=== PATIENT | female | born 1985 | race Caucasian/White ===

== ENCOUNTER 2023-06-29 13:36 | Outpatient (OUT) | payer OTHER, SELFPAY ==
--- NOTE | 2023-06-29 13:58 | XR_ITS ---
The [address] [address] Patient Name: LUL BRITTON MRN: [id number] date: 1985 Sex: F Assigned Patient Location: [facility] Current Patient Location: Accession/Order Number: [id number] Exam Date: 06/29/2023 13:52 Report Date: 06/30/2023 07:02 At the request of: NON-STAFF PHYSICIAN Procedure: XR abdomen 1V EXAMINATION: XR abdomen 1V HISTORY: Kidney Stones N20.0 COMPARISON: XR KUB 10/02/2022 FINDINGS: KIDNEY/URETER - RIGHT: Stable 5 mm stone within inferior pole of kidney. KIDNEY/URETER - LEFT: Stable appearance of several small stones within mid body of kidney. PELVIS: No visible ureteral stones. BOWEL: No abnormal dilation or deviation. BONES: No acute abnormality. OTHER: Negative. No abnormal gaseous collections. XR/XR abdomen 1V IMPRESSION: 1. Stable bilateral nephrolithiasis. Electronically authenticated by: CHELY DALEY Date: 06/30/2023 07:02
== END 2023-06-29 13:37 | disposition home or self-care (01) ==
LOC: RAD 13:39
PROVIDERS: PCP Family Medicine
DX: N20.0 Calculus of kidney (principal)
CPT/HCPCS: 74018

== ENCOUNTER 2023-08-15 14:02 | Outpatient (OUT) | payer OTHER, SELFPAY ==
--- NOTE | 2023-08-15 14:46 | PM.CN ---
Consult Note: HPI Data of Consult Patient: new to practice Consult date: 08/15/23 Requesting Physician: Joanne Cameron MD Primary Care Provider: Kirby Delong MD Consult Narrative Reason for consult: Midback, neck, right shoulder pain Narrative: 38yof who presents for evaluation. Worsening midback, neck, right shoulder pain. Ongoing for 1+ year. Completed physical therapy x6 weeks, with minimal benefit. Continues in provider directed home exercises >3x/week for >6 weeks, with minimal benefit. Tried muscle relaxers, with minimal benefit. XR reviewed, which is significant for cervical and thoracic spondylosis. Denies adverse med side effects. cc:: CC: Joanne Cameron MD Review of Systems ROS Status of ROS 10 or more systems reviewed and unremarkable except as noted in history and below Exam Narrative Exam Narrative: Psych-alert and oriented x 3.? Attentive and appropriate, constitutionally normal, displays normal mood and affect per situation.? There are no obvious deficits in memory, reasoning, or intellect.? Skin-no obvious rashes, bruising, or erythema noted to the patient's area of pain. Extremities-upper extremities are warm with minimal edema and palpable pulses. Cervical- tenderness to palpation noted in the cervical spine and paraspinal musculature.? Pain is elicited with extension, and lateral rotation of the cervical spine.? Range of motion is slightly diminished due to pain. Facet loading maneuvers are positive bilaterally.? Thoracic- tenderness to palpation noted in thoracic spine and paraspinal musculature. Pain elicited with flexion, lateral rotation. Coordination remains intact.? Gait remains non-antalgic. Assessment and Plan Assessment and Plan (1) Thoracic spondylosis: (2) Cervical spondylosis: (3) Right shoulder pain: Plan 38yof who presents for evaluation. Failed conservative measures, as noted above. Imaging reviewed, as noted. Given symptoms and imaging, prudent to attempt diagnostic bilateral T10-11, T11-12 medial branch blocks under fluoroscopic guidance with intention of proceeding to radiofrequency ablation. She is in agreement. Will also obtain right shoulder XR to assess for shoulder pathology. Medications reviewed. Will trial lodine 400mg bid prn. She expressed understanding. Follow up after procedure and imaging are complete.
== END 2023-08-15 14:03 | disposition home or self-care (01) ==
LOC: PM 14:03
PROVIDERS: PCP Family Medicine; Visit Provider Anesthesiology
DX: M47.812 Spondylosis without myelopathy or radiculopathy, cervical region (principal); M47.814 Spondylosis without myelopathy or radiculopathy, thoracic region; M25.511 Pain in right shoulder
CPT/HCPCS: 73030; G0463

== ENCOUNTER 2023-08-15 14:57 | Outpatient (OUT) | payer OTHER, SELFPAY ==
--- NOTE | 2023-08-15 15:08 | XR_ITS ---
The [address] [address] Patient Name: LUL BRITTON MRN: [id number] date: 1985 Sex: F Assigned Patient Location: [facility] Current Patient Location: Accession/Order Number: [id number] Exam Date: 08/15/2023 15:10 Report Date: 08/16/2023 08:17 At the request of: HARRIETT GARCIA Procedure: XR shoulder RT min 2V EXAM: Right shoulder HISTORY: . Right Shoulder Pain . COMPARISON: None. TECHNIQUE: 3 views FINDINGS: No fracture or dislocation of the right shoulder is noted. Glenohumeral joint is unremarkable. Surrounding soft tissues are unremarkable. XR/XR shoulder RT min 2V IMPRESSION: Negative right shoulder. Electronically authenticated by: RIC JOLLEY Date: 08/16/2023 08:17
== END 2023-08-15 14:58 | disposition home or self-care (01) ==
LOC: LAB 15:02 → RAD 15:06
PROVIDERS: PCP Family Medicine; Visit Provider Anesthesiology
DX: M25.511 Pain in right shoulder (principal)
CPT/HCPCS: 73030

== ENCOUNTER 2023-09-05 07:26 | Day surgery (SDC) | payer OTHER, SELFPAY ==
[2023-09-05 07:50] VITALS: BP 131/85; PULSE 87; RESP 14; TEMP 36.9; O2SAT 97
[2023-09-05 08:05] LABS: HCG Qualitative NEGATIVE (NEGATIVE)
[2023-09-05 08:33] VITALS: BP 101/59; PULSE 76; RESP 18; O2SAT 96
[2023-09-05 08:36] VITALS: BP 101/62; PULSE 78; RESP 18; O2SAT 99
[2023-09-05] MEDS: BUPIVACAINE HCL 0.25% PF 25 MG/10 ML VIAL 8 ML INJ (08:37)
--- NOTE | 2023-09-05 08:37 | W.PM.PROCNOT ---
Date of procedure: 09/05/23 Pre-op diagnosis: Thoracic spondylosis Post-op diagnosis: same as pre-op Procedure: Procedure: Bilateral T10-11, T11-12 medial branch block Medications: Bupivacaine 0.25% 6cc The patient was seen and examined in the preoperative holding area.? An informed consent was obtained and placed on the chart.? The patient was brought to the medical procedure unit and placed in the prone position.? A timeout was completed verifying correct patient, procedure site, positioning, plan, and special equipment.? Using aseptic technique, the needle was placed at left T10. Under direct fluoroscopic visualization a Quincke-tipped spinal needle was advanced to the junction of the superior articulating process with the transverse process at the designated medial branch segment.? Preceded by negative aspiration, the above-mentioned injectate was placed in 1 mL aliquots.? The procedure was repeated at left T11, 12.? The needle was removed and insertion site was covered. The same procedure, at the same levels, was completed on the right side. The patient was taken to the postprocedural recovery area and monitored for an appropriate length of time before found suitable for discharge in the company of a responsible adult. Anesthesia: Local Surgeon: Joanne Cameron Pathology: none sent Condition: stable Disposition: no change
== END 2023-09-05 08:42 | disposition home or self-care (01) ==
PROVIDERS: PCP Family Medicine; Visit Provider Anesthesiology
DX: M47.814 Spondylosis without myelopathy or radiculopathy, thoracic region (principal)
CPT/HCPCS: 36415; 64490; 64491; 84703

== ENCOUNTER 2023-09-14 15:03 | Outpatient (OUT) | payer OTHER, SELFPAY ==
--- NOTE | 2023-09-14 15:29 | P.CN_ITS ---
Consult Note: HPI Data of Consult Patient: known to practice within the last 3 years Consult date: 08/15/23 Requesting Physician: Charmaine Yates NP Primary Care Provider: Kirby Delong MD Consult Narrative Reason for consult: Midback, neck, right shoulder pain Narrative: 38yof who presents for evaluation. Worsening midback, neck, right shoulder pain. Ongoing for 1+ year. Completed physical therapy x6 weeks, with minimal benefit. Continues in provider directed home exercises >3x/week for >6 weeks, with minimal benefit. Tried muscle relaxers, with minimal benefit. XR reviewed, which is significant for cervical and thoracic spondylosis. Denies adverse med side effects. Patient reports 90% immediate relief and functional improvement for a few hours, and ongoing relief, after bilateral T10-11 T11-12 facet medial branch block #1. Today pain is 1/10 in right upper thoracic and shoulder, ache, sore, varies-tight . cc:: CC: Charmaine Yates NP Review of Systems 2 ROS0 Status of ROS 10 or more systems reviewed and unremark able except as noted in history and below Musculoskeletal Reports: back pain and extremity pain Meds Home Medications and Allergies Home Medications Medication Instructions Recorded Confirmed Type dextroamphetamine-amphetamine 20 20 mg PO DAILY 08/15/23 09/05/23 History mg tablet (Adderall) etodolac 400 mg tablet (Lodine) 400 mg PO BID 08/15/23 09/05/23 History paroxetine HCl 20 mg tablet (Paxil) 20 mg PO DAILY 08/15/23 09/05/23 History topiramate 25 mg tablet (Topamax) 25 mg PO BID 08/15/23 09/05/23 History Allergies Allergy/AdvReac Type Severity Reaction Status Date / Time Penicillins Allergy Verified 09/05/23 07:48 Exam Narrative Exam Narrative: Psych-alert and oriented x 3.? Attentive and appropriate, constitutionally normal, displays normal mood and affect per situation.? There are no obvious deficits in memory, reasoning, or intellect.? Skin-no obvious rashes, bruising, or erythema noted to the patient's area of pain. Extremities-upper extremities are warm with minimal edema and palpable pulses. Cervical- tenderness to palpation noted in the cervical paraspinal musculature.? Pain is elicited with extension, and lateral rotation of the cervical spine.? Range of motion is slightly diminished due to pain. Facet loading maneuvers are positive bilaterally.? Thoracic- tenderness to palpation noted in paraspinal musculature. Pain elicited with flexion, lateral rotation. Coordination remains intact.? Gait remains non-antalgic. Constitutional Documenting provider has reviewed patient's vital signs: yes Common normals: no apparent distress, oriented x3, healthy appearing, alert and well nourished General appearance: cooperative HENMT Common normals: normocephalic, hearing grossly normal bilaterally and moist oral mucous membranes Head and scalp: normocephalic Eye Common normals: PERRL Pupil: PERRL Neck & C-Spine Common normals: full ROM General: normal visual inspection Other: negative facet loading negative radiculopathy Chest Common normals: inspection of chest normal Respiratory Common normals: normal respiratory effort, no retractions and no use of accessory muscles Back & Pelvis Other: negative facet loading Back image (female): 2 1. myofascial pain 2. myofascial pain Extremity Common normals: normal to inspection and full ROM Neuro Common normals: oriented x3, CN's II-XII intact bilaterally, moves all extremities, no focal motor deficits, no sensory deficits noted, deep tendon reflexes 2+ bilaterally and gait normal Sensorium/orientation: alert Motor exam: strength 5/5 throughout and no movement abnormalities noted Psych Common normals: mental status grossly normal, thought process normal, cooperative, affect normal, speech normal and activity/motor behavior normal Speech: normal speech Thought process: normal thought process Results Additional Findings Additional findings: I have checked an [place] report on this patient today and there are no aberrancies noted in the prescribing history.?? A drug screen was completed and reviewed within the last year, and if there has not been a drug screen completed we ordered one today to monitor higher risk, state monitored pain medication use. As part of providing excellent, safe, comprehensive care, the following was completed at our patient's visit: 1. A medication reconciliation and review to ensure accurate knowledge of current/active medications, including asking our patients to inform us about any [id number] medications or herbal remedies/nutritional supplements/alternative remedies. 2. A review to specifically ensure our patients have had annual screening for: elevated body mass index (BMI), tobacco use, screening for depression, and screening for unhealthy alcohol use. When screening is concerning, patients are provided with education and the specific recommendation to discuss the concerning health issue and treatment options with their primary care provider. Assessment and Plan Assessment and Plan (1) Thoracic spondylosis: (2) Cervical spondylosis: (3) Right shoulder pain: (4) Myofascial pain: Plan defer on bilateral T10-11 T11-12 facet medial branch block #2 as patient has no pain on exam and reports 1/10 pain today start baclofen 10mg daily as needed continue lodine 400mg BID PRN, has not been utilizing continue TENS unit, has found benefit in the past, not currently utilizing f/u 3 months, sooner if needed
== END 2023-09-14 15:04 | disposition home or self-care (01) ==
LOC: PM 15:03
PROVIDERS: PCP Family Medicine; Visit Provider Nurse Practitioner
DX: M47.814 Spondylosis without myelopathy or radiculopathy, thoracic region (principal); M47.812 Spondylosis without myelopathy or radiculopathy, cervical region; M25.511 Pain in right shoulder; M79.18 Myalgia, other site
CPT/HCPCS: G0463

== ENCOUNTER 2023-09-22 17:02 | Outpatient (OUT) | payer OTHER, SELFPAY ==
--- OUTSIDE RECORDS SUMMARY | 2023-09-22 17:10 | XMS_ITS | CCD ---
Author Name Unknown Address [address] [place] [address] Organization [facility] Care Team Providers Care Award Machine Operator Name Role Phone WINSOME, MINGO S Unavailable Unavailable BETANCUR, MAYE P Unavailable Unavailable WINSOME, MINGO S Unavailable Unavailable BETANCUR, MAYE P Unavailable Unavailable Jennyfer Ruiz Unavailable Jessenia Ortiz Unavailable KIRBY ALBERTO Primary Care Physician CHAN ., DR CASTILLO Admitting Unavailable CHAN ., DR CASTILLO Consulting Unavailable CHAN ., DR CASTILLO Attending Unavailable NADERER, DR KIRBY Ayala Primary Care Unavailable NADERER, DR KIRBY Ayala Consulting Unavailable NADERER, DR KIRBY Ayala Attending Unavailable NADERER, DR KIRBY Ayala Admitting Unavailable NADERER, DR KIRBY Ayala Primary Care Unavailable NADERER, DR KIRBY Ayala Attending Unavailable NADERER, DR KIRBY Ayala Admitting Unavailable WEST, DR RIC Diaz Consulting Unavailable NADERER, DR KIRBY Ayala Primary Care Unavailable NADERER, DR KIRBY Ayala Consulting Unavailable NADERER, DR KIRBY Ayala Primary Care Unavailable CHAN ., DR CASTILLO Attending Unavailable CHAN ., DR CASTILLO Admitting Unavailable CHAN ., DR CASTILLO Consulting Unavailable WEST, DR RIC Diaz Consulting Unavailable CHAN ., DR CASTILLO Attending Unavailable CHAN ., DR CASTILLO Admitting Unavailable CHAN ., DR CASTILLO Consulting Unavailable NADERER, DR KIRBY Ayala Primary Care Unavailable WEST, DR RIC Diaz Consulting Unavailable WEST, DR RIC Diaz Consulting Unavailable NADERER, DR KIRBY Ayala Primary Care Unavailable NADERER, DR KIRBY Ayala Attending Unavailable NADERER, DR KIRBY Ayala Admitting Unavailable NADERER, DR KIRBY Ayala Consulting Unavailable NADERER, DR KIRBY Ayala Primary Care Unavailable NADERER, DR KIRBY Ayala Consulting Unavailable NADERER, DR KIRBY Ayala Attending Unavailable NADERER, DR KIRBY Ayala Admitting Unavailable KARASIK ., DR CHAVEZ Admitting Unavailabl e KARASIK ., DR CHAVEZ Consulting Unavailabl e REQUEST, DR ZHOU LISTED Primary Care Unavaila ble KARASIK ., DR CHAVEZ Attending Unavailabl e WEST, DR RIC Diaz Consulting Unavailable KARASIK ., DR CHAVEZ Attending Unavailabl e KARASIK ., DR CHAVEZ Admitting Unavailabl e KARASIK ., DR CHAVEZ Consulting Unavailabl e MISC, DR GARG Primary Care Unavailable MISC, DR GARG Primary Care Unavailable KARASIK ., DR CHAVEZ Attending Unavailabl e KARASIK ., DR CHAVEZ Admitting Unavailabl e KARASIK ., DR CHAVEZ Consulting Unavailabl e NADERER, DR KIRBY Ayala Primary Care Unavailable NADERER, DR KIRBY Ayala Attending Unavailable NADERER, DR KIRBY Ayala Admitting Unavailable Leana Soler Unavailable KEN Soler Attending Provider Leana Soler Attending Unavailable Leana Soler Admitting Unavailable NO FAMILY, PHYSICIAN Primary Care Unavailable XIMENA SCALES Attending Unavailable Isra CHAN Attending Unavailable KIRBY ALBERTO Referring Unavailable XIMENA SCALES Attending Unavailable XIMENA SCALES Attending Unavailable Nisha JOHNSTON, Joanne Olivares Attending Unavailable Nisha JOHNSTON, Joanne Olivares Attending Unavailable Allergies Allergy Classification Reported Allergen(s) Allergy Type Date of Onset Reaction(s) Facility (7 sources) Penicillin G Benzathine; Translations: [Penicillin G] Drug allergy rash, Eruption of skin (disorder) [facility] (1 source) Penicillin Drug Allergy [facility] Repository Medications Current Medications Medication Drug Class(es) Dates Sig (Normalized) Sig (Original) cetirizine hydrochloride 10 mg oral tablet (1 source) Histamine-1 Receptor Antagonist take 1 tablet by mouth once daily ZyrTEC Allergy 10 MG 1 tablet Orally Once a day Active clarithromycin 500 mg oral tablet (1 source) Macrolide Antimicrobial Start: 2 take 1 tablet by mouth every twelve hours Clarithromycin 500 MG 1 tablet Orally every 12 hrs for 10 day(s) Apr, Active methylPREDNISolone 4 mg oral tablet (1 source) Corticosteroid Start: 2 methylPREDNISolone 4 MG as directed Orally Once a day for 6 days Apr, Active montelukast 10 mg oral tablet (1 source) Leukotriene Receptor Antagonist Start: 3 montelukast 10 mg Tab Refills(s) 0 Start Date: 02/08/23 Status: Ordered PARoxetine hydrochloride 20 mg oral tablet (4 sources) Serotonin Reuptake Inhibitor Start: 3 take 1 mg by mouth once daily Paxil 20 mg Tab mg tab(s), Oral, Daily, Refills(s) 0 Start Date: 10/04/22 Status: Ordered Paxil Active predniSONE 20 mg oral tablet (3 sources) Start: 03-06-2023 predniSONE 20 MG Take 3 tabs daily x 3 days, then take 2 tabs daily x 3 days, then take 1 tab daily x 3 days. Orally Once a day for 9 days Feb, Active Start: 09-01-2022 take 1 tablet by herson th every twelve hours predniSONE 20 MG 1 tablet Orally 2 times a day for 5 day(s) Aug, Not-Taking topiramate 25 mg oral tablet (4 sources) Start: 10-04-2022 take 1 mg by mouth twice daily Topamax 25 mg Tab mg tab(s), Oral, BID, Refills(s) 0 Start Date: 10/04/22 Status: Ordered Topamax Active Tylenol Extra Strength 500 MG (3 sources) take 1 tablet by mouth every six hours as needed Tylenol Extra Strength 500 MG 1 tablet as needed Orally every 6 hrs Active Vitamin D (2 sources) Vitamin D Active Vitamin D3 2000 intl units oral tablet (2 sources) Start: 10-04-2022 Vitamin D3 2000 intl units oral tablet Refills(s) 0 Start Date: 10/04/22 Status: Ordered Completed/Discontinued Medications Medication Drug Class(es) Dates Sig (Normalized) Sig (Original) acetaminophen 250 mg / aspirin 250 mg / caffeine 65 mg oral tablet (3 sources) Platelet Aggregation Inhibitor, Nonsteroidal Anti-inflammatory Drug, Central Nervous System Stimulant, Methylxanthine take 2 tablets by mouth every twenty-four hours Excedrin Migraine 250-250-65 MG 2 tablets Orally Once a day Not-Taking [id number] 200 actuat albuterol 0.09 mg/actuat metered dose inhaler (2 sources) beta2-Adrenergic Agonist Start: 12-14-20 22 take 2 puff(s) by inhalation four times daily as needed Albuterol Sulfate HFA 108 (90 Base) MCG/ACT 2 puffs Inhalation 4 times a day prn 14 Aug, 2022 Not-Taking hydroCHLOROthiazide (2 sources) Thiazide Diuretic hydroCHLOROthi azide Not-Taking hydroCHLOROthiaz hua Active polymyxin b 88776 unt/ml / trimethoprim 1 mg/ml ophthalmic solution (1 source) Dihydrofolate Reductase Inhibitor Antibacterial, Polymyxin-class Antibacterial Start: 02-01-2023 take 1 drop(s) into the eye(s) every three hours Polytrim 45606-3.1 UNIT/ML 1 drop into affected eye Ophthalmic every 3 hours while awake for 7 January, Not-Taking Problems Active Problems Problem Classification Problem Date Documented Da te Episodic/Chronic Abdominal pain (7 sources) Unspecified abdominal pain; Translations: [Pelvic and perineal pain] Onset: 10-30-2022 Episodic Calculus of urinary tract (16 sources) Calculus of kidney; Translations: [Kidney stone] Onset: 07-08-2017 Episodic Gout and other crystal arthropathies (2 sources) Gouty arthritis of left foot; Translations: [Gout, unspecified] Chronic Heart valve disorders (2 sources) Heart murmur 10-04-2022 Episodic Nonspecific chest pain (4 sources) Chest pain, unspecified; Translations: [CHEST PAIN UNSPECIFIED] Onset: 11-17-2022 Episodic Other connective tissue disease (1 source) Pain in right arm; Translations: [PAIN IN RIGHT ARM] Onset: 11-03-2022 Episodic Other connective tissue disease (1 source) Pain in left foot Episodic Other injuries and conditions due to external causes (1 source) History of falling; Translations: [HISTORY OF FALLING] Onset: 11-05-2022 Episodic Other upper respiratory infections (1 source) Acute upper respiratory infection, unspecified Episodic Spondylosis; intervertebral disc disorders; other back problems (2 sources) Spondylosis without myelopathy or radiculopathy, cervical region; Translations: [Spondylosis without myelopathy or radiculopathy, thoracic region] Onset: 11-05-2022 Chronic Spondylosis; intervertebral disc disorders; other back problems (6 sources) Cervicalgia; Translations: [Pain in thoracic spine] Onset: 11-01-2022 Episodic Unclassified (1 source) LOW BACK PAIN, UNSPECIFIED; Translations: [LOW BACK PAIN, UNSPECIFIED] Onset: 11-03-2022 Unclassified (1 source) Pain in left foot; Translations: [Pain in left foot] Onset: 03-06-2023 Past or Other Problems Problem Classification Problem Date Documented Date Episodic/Chronic Immunizations and screening for infectious disease (2 sources) Contact with and (suspected) exposure to other viral communicable diseases; Translations: [Encounter for screening for human papillomavirus (HPV)] Onset: 07-22-2021 Resolved: 07-22-2021 Episodic Other female genital disorders (4 sources) Other specified noninflammatory disorders of vagina; Translations: [OTH SPEC NONINFLAMMATORY D/O VAGINA] Onset: 06-02-2022 Episodic Other screening for suspected conditions (not mental disorders or infectious disease) (8 sources) Encounter for screening mammogram for malignant neoplasm of breast; Translations: [Encounter for screening for malignant neoplasm of cervix] Onset: 06-09-2022 Episodic Otitis media and related conditions (1 source) Otitis media, unspecified, left ear Onset: 04-22-2022 Resolved: 04-22-2022 Episodic Residual codes; unclassified (1 source) Family history of malignant neoplasm of breast; Translations: [FAMILY HX MALIG NEOPLASM OF BREAST] Onset: 06-25-2022 Episodic Residual codes; unclassified (1 source) Family history of malignant neoplasm of other genital organs; Translations: [FAM HX MALIG NEOPLSM OT GENIT ORGN] Onset: 06-25-2022 Episodic Unclassified (1 source) Contact with and (suspected) exposure to covid-19 Z20.822 Viral infection (1 source) COVID-19 Onset: 07-22-2021 Resolved: 07-22-2021 Results Test Name Value Interpretation Reference Range Facility RAD - MISCon 07-08-2023 RAD - MISC [id number] 0TIFF Normal [facility] Screenson 07-06-2023 Screens [id number] 0TIFF Normal [facility] Ambulatory Visit Summaryon 1 Ambulatory Visit Summary LUL BRITTON :1985 Visit Date:07/05/2023 Ambulatory Visit Instructions Your Diagnosis Kidney stones Flank pain History of kidney stones Tests Performed Urnls Dip Stick Auto w/o Microscopy POC 45899 US Renal -- Results Pending -- XR Abdomen 1 View -- Results Pending -- Please visit your patient portal for your results or contact your primary care physician. Your Care Team Attending Physician - XIMENA SCALES PA-C Primary Care Physician - KIRBY ALBERTO MD This Is Your Medications List Contact prescribing physician if questions or concerns cholecalciferol (Vitamin D3 2000 intl units oral tablet) montelukast (montelukast 10 mg Tab) paroxetine (Paxil 20 mg Tab) topiramate (Topamax 25 mg Tab) Procedures Performed Appendectomy, Cholecystectomy, Colonoscopy, Hernia, Lithotripsy, Tubal ligation. Discharge Vitals Height 153 cm Height 60 in Weight 98 kg Weight 215.6 lb BMI 41.86 What to do next Scheduled Follow-Up Appointments Tuesday 2:00 PM EDT With: XIMENA SCALES PA-C Where: [facility] Reminderson 07-05-2023 Reminders - From: Ailin Dubose To: PADMINI Scales; Sent: 07/05/2023 15:50:31 EDT Show up: 06/19/2024 15:50:00 EDT Subject: KUB and QING prior to appt Reminder Message Please Remember to:_have pt complete KUB and QING prior to appt. Prefers [facility]. [facility] Urology Office/Clinic Noteon 07-05-2023 Urology Office/Clinic Note HPI Staff PRW pt 5m KUB & Metabolic Work up to determine if thiazide is needed. KUB 06/29/23 Dysuria: no Incomplete bladder emptying: no Hematuria: UA shows trace Frequency:occasionally sooner, 2-3 hours Urgency: moderate urge, 30-60min delay Nocturia: no Stream: good stream Post void dripping: occasionally Wearing pads/ Depends: no Urge incontinence: rarely Stress incontinence: yes Incontinence without Sensory Awareness: no Abdominal pain: no Flank pain: Pt. states having Rt. flank pain History of Present Illness staff HPI reviewed and agree. Review of Systems PHQ Score Initial Depression Screen Score: 0 no fever, chills, malaise, myalgia. no rash/lesions. no chest pain, palpitations, or SOB. no abdominal pain, nausea, vomiting. no unilateral calf swelling, redness, pain Physical Exam Vitals & Measurements HT: 60 in HT: 153 cm WT: 98 kg WT: 215.6 lb BMI: 41.86 General: nontoxic, NAD Mouth: moist mucosa Lungs: normal respiratory effort Cardio: regular rate, good distal perfusion Abdomen: nondistended, no suprapubic distention or tenderness, no CVA tenderness Neurologic: Grossly normal Skin: No rashes or suspicious lesions Assessment/Plan Dr. Chan pt BBSQ 9. considers 'good control'. not bothersome enough to warrant tx. 1. Kidney stones (N20.0: Calculus of kidney) Hx of kidney stones since age 20. Previously treated in [place]. S/P Lithotripsy in 2017. Hx of 8 lithotripsy surgeries. Had major infection in the past due to stones. Has had pain from stones. [1] KUB 08/27/22 [facility] - bilateral stones. No visible ureteral calcifications. Review by PRW: 6mm stone on R > L. A couple tiny stones on the left. XR IVP 10/12/22 [facility] - no ureteral stones or evidence of obstruction. KUB 06/29/23 [facility] - stable 5mm RIP stone and stable appearance of several small L mid body stones. Not taking HCTZ. Was on it many years ago but then stopped. Was off of it when completed metabolic work-up in November 2022. Met w/u 12/06/22 - slight elevation of urine Ca, 24hr sodium, 24hr phosphorus. Significant elevation of 24hr Ca - 479 (nl 100-300). Volume 2050ml. We talked about resuming the HCTZ vs increasing fluid intake. Pt reports she has not been able to increase fluid intake and does not think she will be able to do so. Discussed risks/benefits of resuming HCTZ vs not. Pt prefers to stay off of it and just continue stone monitoring w imaging. -KUB and QING in 1 year 2. Flank pain (R10.9: Unspecified abdominal pain) Continues having R flank pain on and off. Mild. No recent changes. Chronic. UA looks good. May be musculoskeletal. Follow up with KUB and QING in 1 year or sooner if needed. Pt understands and agrees with plan. Follow-up With When Contact Information YORDY WILLSON, XIMENA Lam, URL [address] [place] [address] [phone] Additional Instructions: 1 yr w/ KUB and QING Patient Education Dietary Guidelines to Help Prevent Kidney Stones Documentation recorded by the roseann Dubose accurately reflects the services(s) I performed and decisions made by me. Authenticated by Ximena Scales PA-C on 07/05/2023 16:45:18. I, Ailin Dubose, personally scribed for Ximena Scales PA-C on 07/05/2023 15:47:56. . Problem List/Past Medical History Ongoing Flank pain Heart murmur History of kidney stones Kidney stones Historical No qualifying data Procedure/Surgical History Appendectomy, Cholecystectomy, Colonoscopy, Hernia, Lithotripsy, Tubal ligation. Medications montelukast 10 mg Tab Paxil 20 mg Tab, Oral, Daily Topamax 25 mg Tab, Oral, BID Vitamin D3 2000 intl units oral tablet Allergies penicillin G benzathine (Eruption) Social History Tobacco Never (less than 100 in lifetime) Tobacco Use:. Current vaping or e-cigarette use Smokeless Tobacco Use:. Household tobacco concerns: No., 02/08/2023 Family History Family history is negative Immunizations Vaccine Date Status diphtheria/pertussis, acel/tetanus adult 05/11/2010 Recorded varicella virus vaccine 01/10/2007 Recorded varicella virus vaccine 12/07/2006 Recorded hepatitis B pediatric vaccine 04/25/2006 Recorded hepatitis B pediatric vaccine 12/20/2005 Recorded hepatitis B pediatric vaccine 11/15/2005 Recorded measles/mumps/rubella virus vaccine 03/10/1999 Recorded DTaP, unspecified formulation 03/10/1999 Recorded Lab Results Ambulatory Point of Care Results Bilirubin Urine Dipstick: Negative (07/05/23 15:24:00) Blood Urine Dipstick: Trace-intact (07/05/23 15:24:00) Glucose Urine Dipstick: Negative (07/05/23 15:24:00) Ketones Urine Dipstick: Negative (07/05/23 15:24:00) Leukocytes Urine Dipstick: Trace (07/05/23 15:24:00) Nitrite Urine Dipstick: Negative (07/05/23 15:24:00) Protein Urine Dipstick: Negative (07/05/23 15:24:00) Specific Duff Urine Dipstick: <=1.005 (07/05/23 15:24:00) Urine Appearance Urine Dipst (more content not included)... Normal [facility] Comment on above: Result Comment: Elec tronically Signed By: XIMENA SCALES PA-C\.br\Date and Time Signed: 07/05/23 16:45 EDT\.br\Electronically Co-Signed By: Ailin Dubose\.br\Date and Time Co-Signed: 07/05/23 15:48 EDT RAD - [facility] 06-30-2023 [facility] [id number] 0TIFF [facility] Patient Educationon 06-13-20 Patient Education Nephrology Dietary Guidelines to Help Prevent Kidney Stones Kidney stones are deposits of minerals and salts that form inside your kidneys. Your risk of developing kidney stones may be greater depending on your diet, your lifestyle, the medicines you take, and whether you have certain medical conditions. Most people can lower their chances of developing kidney stones by following the instructions below. Your dietitian may give you more specific instructions depending on your overall health and the type of kidney stones you tend to develop. What are tips for following this plan? Reading food labels ? Choose foods with no salt added or low-salt labels. Limit your salt (sodium) intake to less than 1,500 mg a day. ? Choose foods with calcium for each meal and snack. Try to eat about 300 mg of calcium at each meal. Foods that contain 200?500 mg of calcium a serving include: ? 8 oz (237 mL) of milk, xmtlugx-iqxfhfhlazhh-a airy milk, and calcium-fortifiedfruit juice. Calcium-fortified means that calcium has been added to these drinks. ? 8 oz (237 mL) of kefir, yogurt, and soy yogurt. ? 4 oz (114 g) of tofu. ? 1 oz (28 g) of cheese. ? 1 cup (150 g) of dried figs. ? 1 cup (91 g) of cooked broccoli. ? One 3 oz (85 g) can of sardines or mackerel. Most people need 1,000?1,500 mg of calcium a day. Talk to your dietitian about how much calcium is recommended for you. Shopping ? Buy plenty of fresh fruits and vegetables. Most people do not need to avoid fruits and vegetables, even if these foods contain nutrients that may contribute to kidney stones. ? When shopping for convenience foods, choose: ? Whole pieces of fruit. ? Pre-made salads with dressing on the side. ? Low-fat fruit and yogurt smoothies. ? Avoid buying frozen meals or prepared deli foods. These can be high in sodium. ? Look for foods with live cultures, such as yogurt and kefir. ? Choose high-fiber grains, such as whole-wheat breads, oat bran, and wheat cereals. Cooking ? Do not add salt to food when cooking. Place a salt shaker on the table and allow each person to add his or her own salt to taste. ? Use vegetable protein, such as beans, textured vegetable protein (TVP), or tofu, instead of meat in pasta, casseroles, and soups. Meal planning ? Eat less salt, if told by your dietitian. To do this: ? Avoid eating processed or pre-made food. ? Avoid eating fast food. ? Eat less animal protein, including cheese, meat, poultry, or fish, if told by your dietitian. To do this: ? Limit the number of times you have meat, poultry, fish, or cheese each week. Eat a diet free of meat at least 2 days a week. ? Eat only one serving each day of meat, poultry, fish, or seafood. ? When you prepare animal protein, cut pieces into small portion sizes. For most meat and fish, one serving is about the size of the palm of your hand. ? Eat at least five servings of fresh fruits and vegetables each day. To do this: ? Keep fruits and vegetables on hand for snacks. ? Eat one piece of fruit or a handful of berries with breakfast. ? Have a salad and fruit at lunch. ? Have two kinds of vegetables at dinner. ? Limit foods that are high in a substance called oxalate. These include: ? Spinach (cooked), rhubarb, beets, sweet potatoes, and Guatemalan chard. ? Peanuts. ? Potato chips, guinean fries, and baked potatoes with skin on. ? Nuts and nut products. ? Chocolate. ? If you regularly take a diuretic medicine, make sure to eat at least 1 or 2 servings of fruits or vegetables that are high in potassium each day. These include: ? Avocado. ? Banana. ? [place], prune, carrot, or tomato juice. ? Baked potato. ? Cabbage. ? Beans and split peas. Lifestyle ? Drink enough fluid to keep your urine pale yellow. This is the most important thing you can do. Spread your fluid intake throughout the day. ? If you drink alcohol: ? Limit how much you use to: ? 0?1 drink a day for women who are not . ? 0?2 drinks a day for men. ? Be aware of how much alcohol is in your drink. In the [place] one drink equals one 12 oz bottle of beer (355 mL), one 5 oz glass of wine (148 mL), or one 1? oz glass of hard liquor (44 mL). ? Lose weight if told by your health care provider. Work with your dietitian to find an eating plan and weight loss strategies that work best for you. General information ? Talk to your health care provider and dietitian about taking daily supplements. You may be told the following depending on your health and the cause of your kidney stones: ? Not to take supplements with vitamin C. ? To take a calcium supplement. ? To take a daily probiotic supplement. ? To take other supplements such as magnesium, fish oil, or vitamin B6. ? Take aoav-enu-tshupgp and prescription medicines only as told by your health care provider. These include supplements. What foods should I limit? Limit your in (more content not included)... Normal [facility] XR foot LT min 3V*on 023 XR foot LT min 3V* [facility] Main [place] [id number] XRay Report Signed Patient: Lul Britton MR#: [id number] 6 : 1985 Acct:[id number] Age/Sex: 37 / F ADM Date: 03/06/23 Loc: XDUCLY Room: Type: [facility] Attending Dr: Leana Soler APRN Copies to: Leana Soler APRN Ordering Provider: Leana Soler APRN Date of Service: 03/06/23 XR/XR foot LT min 3V*: M79.672 LEFT FOOT - 3 views CLINICAL DATA: Dorsal foot pain for the past 5 days. No injury COMPARISON: None AP, lateral and oblique views were obtained. There is no evidence of fracture or dislocation. There are posterior and plantar calcaneal spurs. There is soft tissue swelling over the dorsum of foot. The soft tissues of the ankle are also prominent. XR/XR foot LT min 3V* IMPRESSION: NO ACUTE BONY FINDINGS. Impression dictated by: Selena Thomson M.D.03/06/2023 2:30 PM Dictation Location: [place] [address] Transcribed By: [facility] 03/06/23 1430 Dictated By: Selena Thomson MD 03/06/23 1429 Signed By: 03/06/23 1430 Normal [facility] XR foot LT min 3V* [facility] [email or web address] Other XR foot LT min 3V* [facility] [email or web address] Other XR foot LT min 3V* [address] [facility] [email or web address] Other XR foot LT min 3V* [place] [address] [facility] [email or web address] Other XR foot LT min 3V* [facility] [email or web address] Other XR foot LT min 3V* Signed [facility] [email or web address] Other XR foot LT min 3V* Patient: Lul Britton MR#: [id number] [email or web address] [email or web address] Other XR foot LT min 3V* 6 [employer] Other XR foot LT min 3V* : 1985 Acct:[id number] [employer] Other XR foot LT min 3V* Age/Sex: 37 / F ADM Date: 03/06/23 [employer] Other XR foot LT min 3V* Loc: XDUCLY [facility] [employer] Other XR foot LT min 3V* Attending Dr: Leana Soler SOCK LINER [employer] Other XR foot LT min 3V* Copies to: Leana Soler [facility] [employer] Other XR foot LT min 3V* Ordering Provider: Leana Soler SOCK LINER [employer] Other XR foot LT min 3V* Date of Service: 03/06/23 [employer] Other XR foot LT min 3V* XR/XR foot LT min 3V*: M79.672 [employer] Other XR foot LT min 3V* LEFT FOOT - 3 views [employer] Other XR foot LT min 3V* CLINICAL DATA: Dorsa l foot pain for the past 5 days. No injury [employer] Other XR foot LT min 3V* COMPARISON: None [employer] Other XR foot LT min 3V* AP, lateral and oblique views were obtained. There is no evidence of fracture or dislocation. [employer] Other XR foot LT min 3V* There are posterior and plantar calcaneal spurs. There is soft tissue swelling over the dorsum of [employer] Other XR foot LT min 3V* foot. The soft tissu es of the ankle are also prominent. [employer] Other XR foot LT min 3V* XR/XR foot LT min 3V* [employer] Other XR foot LT min 3V* IMPRESSION: [employer] Other XR foot LT min 3V* NO ACUTE BONY FINDINGS. [employer] Other XR foot LT min 3V* Impression dictated by: Selena Thomson M.D.03/06/2023 2:30 PM [employer] Other XR foot LT min 3V* Dictation Location: [place] [address] [employer] Other XR foot LT min 3V* Transcribed By: NESSA 03/06/23 1430 [employer] Other XR foot LT min 3V* Dictated By: Selena Thomson MD 03/06/23 1429 [employer] Other XR foot LT min 3V* Signed By: [employer] Other XR foot LT min 3V* 03/06/23 1430 [facility] [employer] Other Patient Educationon 02-09-20 Patient Education Urology Kidney Stones Kidney stones are rock-like masses that form inside of the kidneys. Kidneys are organs that make pee (urine). A kidney stone may move into other parts of the urinary tract, including: ? The tubes that connect the kidneys to the bladder (ureters). ? The bladder. ? The tube that carries urine out of the body (urethra). Kidney stones can cause very bad pain and can block the flow of pee. The stone usually leaves your body (passes) through your pee. You may need to have a doctor take out the stone. What are the causes? Kidney stones may be caused by: ? A condition in which certain glands make too much parathyroid hormone (primary hyperparathyroidism). ? A buildup of a type of crystals in the bladder made of a chemical called uric acid. The body makes uric acid when you eat certain foods. ? Narrowing (stricture) of one or both of the ureters. ? A kidney blockage that you were born with. ? Past surgery on the kidney or the ureters, such as gastric bypass surgery. What increases the risk? You are more likely to develop this condition if: ? You have had a kidney stone in the past. ? You have a family history of kidney stones. ? You do not drink enough water. ? You eat a diet that is high in protein, salt (sodium), or sugar. ? You are overweight or very overweight (obese). What are the signs or symptoms? Symptoms of a kidney stone may include: ? Pain in the side of the belly, right below the ribs (flank pain). Pain usually spreads (radiates) to the groin. ? Needing to pee often or right away (urgently). ? Pain when going pee (urinating). ? Blood in your pee (hematuria). ? Feeling like you may vomit (nauseous). ? Vomiting. ? Fever and chills. How is this treated? Treatment depends on the size, location, and makeup of the kidney stones. The stones will often pass out of the body through peeing. You may need to: ? Drink more fluid to help pass the stone. In some cases, you may be given fluids through an IV tube put into one of your veins at the hospital. ? Take medicine for pain. ? Make changes in your diet to help keep kidney stones from coming back. Sometimes, medical procedures are needed to remove a kidney stone. This may involve: ? A procedure to break up kidney stones using a beam of light (laser) or shock waves. ? Surgery to remove the kidney stones. Follow these instructions at home: Medicines ? Take [id number] and prescription medicines only as told by your doctor. ? Ask your doctor if the medicine prescribed to you requires you to avoid driving or using heavy machinery. Eating and drinking ? Drink enough fluid to keep your pee pale yellow. You may be told to drink at least 8?10 glasses of water each day. This will help you pass the stone. ? If told by your doctor, change your diet. This may include: ? Limiting how much salt you eat. ? Eating more fruits and vegetables. ? Limiting how much meat, poultry, fish, and eggs you eat. ? Follow instructions from your doctor about eating or drinking restrictions. General instructions ? Collect pee samples as told by your doctor. You may need to collect a pee sample: ? 24 hours after a stone comes out. ? 8?12 weeks after a stone comes out, and every 6?12 months after that. ? Strain your pee every time you pee (urinate), for as long as told. Use the strainer that your doctor recommends. ? Do not throw out the stone. Keep it so that it can be tested by your doctor. ? Keep all follow-up visits as told by your doctor. This is important. You may need follow-up tests. How is this prevented? To prevent another kidney stone: ? Drink enough fluid to keep your pee pale yellow. This is the best way to prevent kidney stones. ? Eat healthy foods. ? Avoid certain foods as told by your doctor. You may be told to eat less protein. ? Stay at a healthy weight. Where to find more information ? National Kidney Foundation (NKF): www.kidney.org ? [employer] (UCF): www.urologyhealth.org Contact a doctor if: ? You have pain that gets worse or does not get better with medicine. Get help right away if: ? You have a fever or chills. ? You get very bad pain. ? You get new pain in your belly (abdomen). ? You pass out (faint). ? You cannot pee. Summary ? Kidney stones are rock-like masses that form inside of the kidneys. ? Kidney stones can cause very bad pain and can block the flow of pee. ? The stones will often pass out of the body through peeing. ? Drink enough fluid to keep your pee pale yellow. This information is not intended to replace advice given to you by your health care provider. Make sure you discuss any questions you have with your health care provider. Document Revised: 05/10/2022 Document Reviewed: 05/10/2022 [employer] Patient Education ? 2022 [employer] Bhupinder [facility] Urology Office/Clinic Noteon 02-08-2023 Urology Office/Clinic Note Chief Complaint 2m Metabolic Work Up & IVP HPI Staff PRW pt 2m IVP & Metabolic Work Up. DX:Kidney Stones Metabolic Work Up done 3/20/23 Still having Rt flank pain, was told it was her muscle. Has been going to therapy. Denies urinary complaints at this time. UA today does show MODERATE blood - on menses History of Present Illness staff HPI reviewed and agree. Review of Systems PHQ Score Initial Depression Screen Score: 0 no fever, chills, malaise, myalgia. no rash/lesions. no chest pain, palpitations, or SOB. no abdominal pain, nausea, vomiting. no unilateral calf swelling, redness, pain Physical Exam Vitals & Measurements HT: 60 in HT: 153 cm WT: 98 kg WT: 215.6 lb BMI: 41.86 General: nontoxic, NAD Mouth: moist mucosa Lungs: normal respiratory effort Cardio: regular rate, good distal perfusion Abdomen: nondistended, no suprapubic distention or tenderness, no CVA tenderness Neurologic: Grossly normal Skin: No rashes or suspicious lesions Assessment/Plan 1. Kidney stones (N20.0: Calculus of kidney) Hx of kidney stones since age 20. Previously treated in [place]. S/P Lithotripsy in 2017. Hx of 8 lithotripsy surgeries. Had major infection in the past due to stones. Has had pain from stones. KUB done 08/27/22 at [facility] shows bilateral stones. No visible ureteral calcifications. PRW review: 6mm stone on R > L. A couple tiny stones on the left. IVP 10/12/22 shows no ureteral stones or evidence of obstruction. Pt has had a met workup in the past, states she makes too much calcium and was put on HCTZ. Stopped taking it and stopped seeing a physician regularly until recently. PRW recommended repeat metabolic work-up. Recent metabolic workup shows slight elevation of urine Ca, 24hr sodium, 24hr phosphorus. also shows significant elevation of 24hr Ca - 479 (nl 100-300). volume is only 2050ml. recommended pt increase fluid intake another 1-2L with a goal of producing 3-4L urine/24 hrs. suspect most, if not all, of her abnormal levels will correct themselves w proper hydration. 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 for now, will hold off on resuming it. pt will attempt lifestyle changes. repeat metabolic workup in 3-4 mos and f/u after. will repeat KUB at that time. Ordered: E&M of Est. Patient Low 20-29 Min [id number] XR Abdomen 1 View Follow-up No qualifying data available Patient Education Kidney Stones, [id number] Problem List/Past Medical History Ongoing Heart murmur History of kidney stones Kidney stones Historical No qualifying data Procedure/Surgical History Appendectomy, Cholecystectomy, Colonoscopy, Hernia, Lithotripsy, Tubal ligation. Medications montelukast 10 mg Tab Paxil 20 mg Tab, Oral, Daily Topamax 25 mg Tab, Oral, BID Vitamin D3 2000 intl units oral tablet Allergies penicillin G benzathine (Eruption) Social History Tobacco Never (less than 100 in lifetime) Tobacco Use:. Current vaping or e-cigarette use Smokeless Tobacco Use:. Household tobacco concerns: No., 02/08/2023 Family History Family history is negative Immunizations Vaccine Date Status diphtheria/pertussis, acel/tetanus adult 05/11/2010 Recorded varicella virus vaccine 01/10/2007 Recorded varicella virus vaccine 12/07/2006 Recorded hepatitis B pediatric vaccine 04/25/2006 Recorded hepatitis B pediatric vaccine 12/20/2005 Recorded hepatitis B pediatric vaccine 11/15/2005 Recorded measles/mumps/rubella virus vaccine 03/10/1999 Recorded DTaP, unspecified formulation 03/10/1999 Recorded Lab Results Ambulatory Point of Care Results Bilirubin Urine Dipstick: Negative (02/08/23 15:46:00) Blood Urine Dipstick: 2+ Moderate (02/08/23 15:46:00) Glucose Urine Dipstick: Negative (02/08/23 15:46:00) Ketones Urine Dipstick: Negative (02/08/23 15:46:00) Leukocytes Urine Dipstick: Negative (02/08/23 15:46:00) Nitrite Urine Dipstick: Negative (02/08/23 15:46:00) Protein Urine Dipstick: Negative (02/08/23 15:46:00) Specific Duff Urine Dipstick: 1.020 (02/08/23 15:46:00) Urine Appearance Urine Dipstick: Clear (02/08/23 15:46:00) Urine Color Urine Dipstick: Yellow (02/08/23 15:46:00) Urobilinogen Urine Dipstick: Normal 0.2-1 EU/dl (02/08/23 15:46:00) pH Urine Dipstick: 6 (02/08/23 15:46:00) Normal [facility] Comment on above: Result Comment: Elec tronically Signed By: XIMENA SCALES PA-C\Date and Time Signed: 02/08/23 17:26 EDT Lab Reportson 12-14-2022 Lab Reports [id number] CD:127 Normal [facility] CITRATE URINE 24HRon 023 Citric Acid, U, 24hr 410 mg/24 hr Normal 320-1240 [facility] Comment on above: Result Comment: This test was developed and its performance characteristics determined by [employer]. It has not been cleared or approved by the Food and Drug Administration. Performed By: #### O X24HR #### [facility] [address] [place] [address] [address] Neil Krishnamurthy Citric Acid, Urine 200 mg/L Normal Undefined [facility] Comment on above: Performed By: #### O X24HR #### [facility] [address] [place] [address] [address] Neil Krishnamurthy OXALATE 24HR URINEon 023 Oxalates, Urine 7 mg/L Normal Undefined [facility] Comment on above: Performed By: #### O X24HR #### [facility] [address] [address] [address] Neil Krishnamurthy Oxalates, Urine 24hr 14 mg/24 hr Normal 4-31 [facility] Comment on above: Performed By: #### O X24HR #### [facility] [address] [address] [address] Neil Krishnamurthy MAGNESIUM 24HR URINEon 12-07 Magnesium 24hr Urine 116.9 mg/24 hr Normal 12.0-293.0 [facility] Comment on above: Performed By: #### C O2, CL, BUN, CREA, URIC, K, CA, NA #### [facility] [address] [address] [address] Neil Krishnamurthy Magnesium UR 5.7 mg/dL Normal Not Estab. The [facility] Comment on above: Performed By: #### C O2, CL, BUN, CREA, URIC, K, CA, NA #### [facility] [address] [place] [address] Dr. Neil Krishnamurthy PHOSPHORUS 24HR URINEon 11-18 Phosphorus, Urine 56.6 mg/dL Normal Not Estab. The [facility] Comment on above: Performed By: #### O X24HR #### [facility] [address] [place] [address] Dr. Neil Krishnamurthy Phosphorus, Urine 24hr 1160 mg/24 hr Critically high 261-1078 [facility] Comment on above: Performed By: #### O X24HR #### [facility] [address] [place] [address] Dr. Neil Krishnamurthy PTH INTACTon 12-07-2022 PTH, Intact 41 pg/mL Normal 15-65 [facility] Comment on above: Performed By: #### O X24HR #### [facility] [address] [place] [address] Dr. Neil Krishnamurthy URIC ACID 24 HR URINEon 11-18 Uric Acid, Urine 23.4 mg/dL Normal Not Estab. The [facility] Comment on above: Performed By: #### O X24HR #### [facility] [address] [place] [address] Dr. Neil Krishnamurthy Uric Acid, Urine 24hr 479.7 mg/24 hr Normal 173.7-902.1 [facility] Comment on above: Performed By: #### O X24HR #### [facility] [address] [place] [address] Dr. Neil Krishnamurthy BUNon 12-06-2022 Urea nitrogen [Mass/Vol] 12.0 mg/dL Normal 7.0-18.0 [facility] Comment on above: Performed By: #### C O2, CL, BUN, CREA, URIC, K, CA, NA #### [facility] [address] [place] [address] Dr. Neil Krishnamurthy CALCIUMon 12-06-2022 Calcium [Mass/Vol] 8.6 mg/dL Normal 8.5-10.1 [facility] Comment on above: Performed By: #### O X24HR #### [facility] [address] [place] [address] Dr. Neil Krishnamurthy CALCIUM 24 HR URINEon 2022 CALC, 24 HR UR 479.7 mg/24 hr Critically high 100.0-300.0 [facility] Comment on above: Performed By: #### V AGINT #### [facility] [address] [place] [address] Dr. Neil Krishnamurthy UR CALCIUM 23.4 mg/dL Critically high 5.1-21.0 The [facility] Comment on above: Performed By: #### V AGINT #### [facility] [address] [place] [address] Dr. Neil Krishnamurthy UR TOT VOL 2050 ml/24 HR Normal The [facility] Comment on above: Performed By: #### V AGINT #### [facility] [address] [place] [address] Dr. Neil Krishnamurthy Performed By: #### C O2, CL, BUN, CREA, URIC, K, CA, NA #### [facility] [address] [place] [address] Dr. Neil Krishnamurthy CHLORIDEon 12-06-2022 Chloride [Moles/Vol] 106 mmol/L Normal 98-107 [facility] Comment on above: Performed By: #### C O2, CL, BUN, CREA, URIC, K, CA, NA #### [facility] [address] [place] [address] Dr. Neil Krishnamurthy CO2on 12-06-2022 CO2 [Moles/Vol] 25.7 mmol/L Normal 21.0-32.0 [facility] Comment on above: Performed By: #### C O2, CL, BUN, CREA, URIC, K, CA, NA #### [facility] [address] [place] [address] Dr. Neil Krishnamurthy CREA 24 HR URINEon CREA, 24 HR UR 1371.04 mg/24 hr Normal 800.00-1, 800. 00 [facility] Comment on above: Performed By: #### C O2, CL, BUN, CREA, URIC, K, CA, NA #### [facility] [address] [place] [address] Dr. Neil Krishnamurthy URINE CREAT 66.88 mg/dL Normal 20.00-300.00 [facility] Comment on above: Performed By: #### C O2, CL, BUN, CREA, URIC, K, CA, NA #### [facility] [address] [place] [address] Dr. Neil Krishnamurthy CREATININEon 12-06-2022 Creatinine [Mass/Vol] 0.78 mg/dL Normal 0.55-1.02 [facility] Comment on above: Performed By: #### C O2, CL, BUN, CREA, URIC, K, CA, NA #### [facility] [address] [place] [address] Dr. Neil Krishnamurthy EGFR-AF NAMIBIAN >60 Normal >=60 [facility] Comment on above: Performed By: #### C O2, CL, BUN, CREA, URIC, K, CA, NA #### [facility] [address] [place] [address] Dr. Neil Krishnamurthy EGFR-NON AF NAMIBIAN >60 Normal >=60 [facility] Comment on above: Performed By: #### C O2, CL, BUN, CREA, URIC, K, CA, NA #### [facility] [address] [place] [address] Dr. Neil Krishnamurthy NAon 12-06-2022 Sodium [Moles/Vol] 139 mmol/L Normal 136-145 [facility] Comment on above: Performed By: #### C O2, CL, BUN, CREA, URIC, K, CA, NA #### [facility] [address] [place] [address] Dr. Neil Krishnamurthy POTASSIUMon 12-06-2022 Potassium [Moles/Vol] 4.1 mmol/L Normal 3.5-5.1 [facility] Comment on above: Performed By: #### C O2, CL, BUN, CREA, URIC, K, CA, NA #### [facility] [address] [address] [address] Neil Krishnamurthy SODIUM 24 HR URINEon 023 NA, 24 HR UR 211 mmol/24 hr Normal 40-220 [facility] Comment on above: Performed By: #### C O2, CL, BUN, CREA, URIC, K, CA, NA #### [facility] [address] [address] [address] Neil Krishnamurthy Sodium (U) [Moles/Vol] 103 mmol/L Critically high 30-90 [facility] Comment on above: Performed By: #### C O2, CL, BUN, CREA, URIC, K, CA, NA #### [facility] [address] [place] [address] Dr. Neil Krishnamurthy URIC ACID SERUMon 12-06-2022 Urate [Mass/Vol] 5.0 mg/dL Normal 2.6-6.0 [facility] Comment on above: Performed By: #### C O2, CL, BUN, CREA, URIC, K, CA, NA #### [facility] [address] [place] [address] Dr. Neil Krishnamurthy ECHOCARDIO M/2D COMPLETEon 0 11-17-2022 ECHOCARDIO M/2D COMPLETE Patient: LUL BRITTON Exam Date: 11/17/2022 : 1985 Gender:F Ordering : DR KIRBY ALBERTO . Admission #: [id number] Family : Order #: [id number] CLICK HERE TO VIEW EXAM ECHOCARDIOGRAM REPORT PROCEDURE: CARDIO PULMONARY ECHOCARDIO M/2D COMP INDICATIONS: Chest pain COMPARISON: None. DESCRIPTION: COMPLETE ECHOCARDIOGRAM Real-time transthoracic echocardiography with 2D, M-mode, spectral and color flow Doppler performed. QUALITY: Technical quality was good. LEFT VENTRICLE: Normal chamber size. Normal left ventricular wall thickness. Global left ventricular systolic function is normal. LV EF: Visual estimation of left ventricular ejection fraction is 60-65% DIASTOLIC: Normal diastolic function. ATRIAL SEPTUM: LEFT ATRIUM: Normal chamber size. RIGHT ATRIUM: Normal chamber size. RIGHT VENTRICLE: Normal chamber size. Normal right ventricular systolic function. TRICUSPID VALVE: Normal mobility and thickness. No stenosis with trivial regurgitation. No evidence of pulmonary hypertension. RVSP 22 mmHg MITRAL VALVE: Normal mobility and thickness. No mitral valve prolapse. No evidence of mitral valve stenosis. There is no mitral annular calcification. No mitral regurgitation. AORTIC VALVE: Normal trileaflet appearance. No visible sclerosis. Normal leaflet mobility. No evidence of aortic valve stenosis. No aortic regurgitation. AORTIC ROOT: Normal diameter and appearance. PULMONIC VALVE: Normal thickness and mobility. No stenosis. No regurgitation. PERICARDIUM: No evidence of pericardial effusion. IVC: Collapses with inspirations. Normal size PLEURA: CONCLUSION: 1. Normal ventricular size and systolic function. LVEF is 60-65%. 2. Normal diastolic function. 3. No significant valvular dysfunction. 4. Normal right-sided pressures. 5. No pericardial effusion. Adult Echocardiography Procedure Report Left Ventricle LVEDD (3.7 - 5.6 cm): 4.40 cm LVESD (2.2 - 4.0 cm): 2.91 cm LVIVS thickness (0.6 - 1.2 cm): 6.65 mm LVPW thickness (0.5 - 1.0 cm): 6.46 mm LVOT Max Gradient: 4 mm[Hg] Peak Velocity (LVOT): 102.00 cm/s LVOT Diameter 2.00 cm Left Ventricular Ejection Fraction: 60-65 % Left Atrium Mitral Valve MV E to A Ratio: 1.30 Mitral Valve A-Wave Peak Velocity: 75.00 cm/s Mitral Valve E-Wave Peak Velocity: 96.70 cm/s Right Ventricle Aorta AO Root Diam: 3.00 cm Aortic Valve AoV Area (Peak Cedric): 2.48 cm2 Peak Velocity(Antegrade Flow): 129.00 cm/s Peak Gradient(Antegrade Flow): 7 mm[Hg] Tricuspid Valve Peak Velocity (Regurgitant Flow): 216.00 cm/s Peak Velocity: 64.70 cm/s Pulmonic Valve Peak Velocity: 129.00 cm/s, 128.00 cm/s Peak Gradient: 7 mm[Hg] Right Atrium Dictated by: Jon Onofre M.D. on 11/18/2022 at 09:48 Approved by: Jon Onofre M.D. on 11/18/2022 at 09:50 Normal [facility] US PELVIS AND TRANSVAGon US PELVIS AND TRANSVAG EXAMINATION: US PELVIS AND TRANSVAG HISTORY: Pelvic and perineal pain COMPARISON: No relevant comparison available. FINDINGS: Transabdominal and transvaginal images The uterus is normal in size, contour and myometrial echotexture measuring 10 x 4.2 x 5.7 cm. No focal myometrial mass. The endometrium measures 2.9 mm, normal. The right ovary is normal in size, contour and echotexture measuring 2.6 x 2.4 x 2.1 cm. Normal color flow. Normal subcentimeter follicles. The left ovary is normal in size, contour and echotexture measuring 2.1 x 1.8 x 3.0 cm. Normal color flow. Normal subcentimeter follicles No free fluid IMPRESSION: Normal exam Electronically authenticated by: RIC QUEZADA Date: 2022-11-01 07:20 Normal [facility] XR RIBS RT PA Karl XR RIBS RT PA CH EXAMINATION: XR RIBS RT PA CH HISTORY: pain COMPARISON: 10/18/2021 FINDINGS: LUNGS: No significant pulmonary parenchymal abnormalities. PLEURA: No pneumothorax, effusion, or pleural thickening. MEDIASTINUM: No visible mass or adenopathy. CARDIAC: No cardiomegaly or cardiac silhouette abnormality. RIBS: No acute rib fracture OTHER: Degenerative spondylosis of the spine. IMPRESSION: Clear lungs No acute rib fracture Electronically authenticated by: RIC QUEZADA Date: 2022-11-01 07:12 Normal [facility] XR TSPINE MIN 4 VIEWSon 10-20 XR TSPINE MIN 4 VIEWS EXAMINATION: XR TSPINE MIN 4 VIEWS, XR CSPINE 2_3 VIEWS HISTORY: pain COMPARISON: No relevant comparison available. FINDINGS: BONES: Reversal of normal cervical lordosis. Normal alignment of the thoracic spine. Mild degenerative spondylosis most significant in the mid to lower thoracic spine. No acute fracture or spondylolisthesis DISC SPACES: Normal. No significant disc height narrowing, subluxation, or endplate abnormality. PARASPINOUS: Negative. No paraspinous abnormality is seen. OTHER: Negative. IMPRESSION: Mild degenerative spondylosis Reversal of cervical lordosis Electronically authenticated by: RIC QUEZADA Date: 2022-11-01 07:09 Normal [facility] Lab Reportson 10-15-2022 Lab Reports [id number] 0CD:127 Normal [facility] RAD - MISCon 10-15-2022 RAD - MISC [id number] 0CD:127 Normal [facility] CREATININEon 10-12-2022 Creatinine [Mass/Vol] 0.91 mg/dL Normal 0.55-1.02 [facility] Comment on above: Performed By: #### O X24HR #### [facility] [address] [place] [address] Dr. Neil Krishnamurthy EGFR-AF NAMIBIAN >60 Normal >=60 [facility] Comment on above: Performed By: #### O X24HR #### [facility] [address] [place] [address] Dr. Neil Krishnamurthy EGFR-NON AF NAMIBIAN >60 Normal >=60 [facility] Comment on above: Performed By: #### O X24HR #### [facility] [address] [place] [address] Dr. Neil Krishnamurthy XR IVPon 10-12-2022 XR IVP EXAMINATION: XR IVP HISTORY: Kidney stone COMPARISON: No relevant comparison available. TECHNIQUE: After obtaining patient consent a line decorator image was obtained followed by injection of 100cc of Omnipaque 300 IV contrast. Immediate nephrographic images were obtained. Corticomedullary and urographic phase images were obtained at 5, 10, 15 and 20 minutes. 15 minute oblique images were also obtained. FINDINGS: KIDNEY/URETER - RIGHT: Multiple nephroliths KIDNEY/URETER - LEFT: Multiple nephroliths PELVIS: No visible ureteral calcifications. Any visible calcifications favor phleboliths. NEPHROGRAPHIC PHASE: Normal, symmetric size, contour, and orientation. Normal and symmetric time of contrast uptake. CORTICOMEDULLARY: No mass or abnormal appearing medulla, pyramids, or collecting system. UROGRAPHIC PHASE: Normal caliber, course, and number of ureters. BLADDER: Normal size and contour. BOWEL: No abnormal dilation or deviation. BONES: No acute abnormality. OTHER: Negative. No abnormal gaseous collections. IMPRESSION: Bilateral nonobstructing nephrolithiasis Otherwise normal IVP Electronically authenticated by: RIC QUEZADA Date: 2022-10-12 09:48 [facility] RAD - MISCon 10-07-2022 RAD - MISC [id number] 0CD:127 Normal [facility] - MIS [id number] 0CD:127 Normal [facility] 10-05-2022 Forms [id number] 0CD:127 Normal [facility] Physician Referralon 023 Physician Referral [id number] 0CD:127 Normal [facility] XR KUB 1 VIEWon 10-05-2022 XR KUB 1 VIEW EXAMINATION: XR KUB 1 VIEW HISTORY: Kidney stone r COMPARISON: No relevant comparison available. FINDINGS: KIDNEY/URETER - RIGHT: Stable 5 mm calcification lower pole of the right kidney KIDNEY/URETER - LEFT: Stable punctate calcifications midpole left kidney PELVIS: No visible ureteral calcifications. Any visible calcifications favor phleboliths. BOWEL: No abnormal dilation or deviation. BONES: No acute abnormality. Mild degenerative spondylosis OTHER: Surgical clips from cholecystectomy. No abnormal gaseous collections. IMPRESSION: Bilateral nephrolithiasis Electronically authenticated by: RIC QUEZADA Date: 2022-10-05 07:35 [facility] Ambulatory Visit Summaryon 0 10-04-2022 Ambulatory Visit Summary LUL BRITTON :1985 Visit Date:10/04/2022 Ambulatory Visit Instructions Your Diagnosis Kidney stones History of kidney stones Tests Performed Urnls Dip Stick Auto w/o Microscopy POC 23329 XR IVP -- Results Pending -- Please visit your patient portal for your results or contact your primary care physician. Your Care Team Attending Physician - CLARITZA JOHNSTON, Isra Lorenzana Primary Care Physician - KIRBY ALBERTO MD Referring Physician - KIRBY ALBERTO MD This Is Your Medications List Contact prescribing physician if questions or concerns cholecalciferol (Vitamin D3 2000 intl units oral tablet) paroxetine (Paxil 20 mg Tab) topiramate (Topamax 25 mg Tab) Procedures Performed Appendectomy, Cholecystectomy, Colonoscopy, Hernia, Lithotripsy, Tubal ligation. Discharge Vitals Height 153 cm Height 60 in Weight 113.5 kg Weight 249.7 lb BMI 48.49 What to do next Scheduled Follow-Up Appointments Tuesday 3:15 PM EDT With: CLARITZA JOHNSTON, Isra Lorenzana Where: [facility] Patient Educationon 10-04-19 Patient Education Urology Dietary Guidelines to Help Prevent Kidney Stones Kidney stones are deposits of minerals and salts that form inside your kidneys. Your risk of developing kidney stones may be greater depending on your diet, your lifestyle, the medicines you take, and whether you have certain medical conditions. Most people can reduce their chances of developing kidney stones by following the instructions below. Depending on your overall health and the type of kidney stones you tend to develop, your dietitian may give you more specific instructions. What are tips for following this plan? Reading food labels ? Choose foods with no salt added or low-salt labels. Limit your sodium intake to less than 1500 mg per day. ? Choose foods with calcium for each meal and snack. Try to eat about 300 mg of calcium at each meal. Foods that contain 200?500 mg of calcium per serving include: ? 8 oz (237 ml) of milk, fortified nondairy milk, and fortified fruit juice. ? 8 oz (237 ml) of kefir, yogurt, and soy yogurt. ? 4 oz (118 ml) of tofu. ? 1 oz of cheese. ? 1 cup (300 g) of dried figs. ? 1 cup (91 g) of cooked broccoli. ? 1?3 oz can of sardines or mackerel. ? Most people need 1000 to 1500 mg of calcium each day. Talk to your dietitian about how much calcium is recommended for you. Shopping ? Buy plenty of fresh fruits and vegetables. Most people do not need to avoid fruits and vegetables, even if they contain nutrients that may contribute to kidney stones. ? When shopping for convenience foods, choose: ? Whole pieces of fruit. ? Premade salads with dressing on the side. ? Low-fat fruit and yogurt smoothies. ? Avoid buying frozen meals or prepared deli foods. ? Look for foods with live cultures, such as yogurt and kefir. Cooking ? Do not add salt to food when cooking. Place a salt shaker on the table and allow each person to add his or her own salt to taste. ? Use vegetable protein, such as beans, textured vegetable protein (TVP), or tofu instead of meat in pasta, casseroles, and soups. Meal planning ? Eat less salt, if told by your dietitian. To do this: ? Avoid eating processed or premade food. ? Avoid eating fast food. ? Eat less animal protein, including cheese, meat, poultry, or fish, if told by your dietitian. To do this: ? Limit the number of times you have meat, poultry, fish, or cheese each week. Eat a diet free of meat at least 2 days a week. ? Eat only one serving each day of meat, poultry, fish, or seafood. ? When you prepare animal protein, cut pieces into small portion sizes. For most meat and fish, one serving is about the size of one deck of cards. ? Eat at least 5 servings of fresh fruits and vegetables each day. To do this: ? Keep fruits and vegetables on hand for snacks. ? Eat 1 piece of fruit or a handful of berries with breakfast. ? Have a salad and fruit at lunch. ? Have two kinds of vegetables at dinner. ? Limit foods that are high in a substance called oxalate. These include: ? Spinach. ? Rhubarb. ? Beets. ? Potato chips and guinean fries. ? Nuts. ? If you regularly take a diuretic medicine, make sure to eat at least 1?2 fruits or vegetables high in potassium each day. These include: ? Avocado. ? Banana. ? [place], prune, carrot, or tomato juice. ? Baked potato. ? Cabbage. ? Beans and split peas. General instructions ? Drink enough fluid to keep your urine clear or pale yellow. This is the most important thing you can do. ? Talk to your health care provider and dietitian about taking daily supplements. Depending on your health and the cause of your kidney stones, you may be advised: ? Not to take supplements with vitamin C. ? To take a calcium supplement. ? To take a daily probiotic supplement. ? To take other supplements such as magnesium, fish oil, or vitamin B6. ? Take all medicines and supplements as told by your health care provider. ? Limit alcohol intake to no more than 1 drink a day for non women and 2 drinks a day for men. One drink equals 12 oz of beer, 5 oz of wine, or 1? oz of hard liquor. ? Lose weight if told by your health care provider. Work with your dietitian to find strategies and an eating plan that works best for you. What foods are not recommended? Limit your intake of the following foods, or as told by your dietitian. Talk to your dietitian about specific foods you should avoid based on the type of kidney stones and your overall health. Grains Breads. Bagels. Rolls. Baked goods. Salted crackers. Cereal. Pasta. Vegetables Spinach. Rhubarb. Beets. Canned vegetables. Pickles. Olives. Meats and other protein foods Nuts. Nut butters. Large portions of meat, poultry, or fish. Salted or cured meats. Deli meats. Hot dogs. Sausages. Dairy Cheese. Beverages Regular soft drinks. Regular vegetable juice. Seasonings and other foods Seasoning blends with salt. Salad dr (more content not included)... Normal [facility] COVID/FLU RT-PCRon 2 SARS-CoV-2 (COVID-19) RNA BRANDIE+probe Ql (Unsp spec) Negative [employer] Other COVID/FLU RT-PCR Negative [facility] [email or web address] Other XR KUB 1 VIEWon 08-30-2022 XR KUB 1 VIEW EXAMINATION: XR KUB 1 VIEW HISTORY: Abdominal pain COMPARISON: No relevant comparison available. FINDINGS: KIDNEY/URETER - RIGHT: Nephrolithiasis KIDNEY/URETER - LEFT: Nephrolithiasis PELVIS: No visible ureteral calcifications. Any visible calcifications favor phleboliths. BOWEL: No abnormal dilation or deviation. BONES: No acute abnormality. OTHER: Negative. No abnormal gaseous collections. IMPRESSION: Bilateral nephrolithiasis Electronically authenticated by: RIC QUEZADA Date: 2022-08-30 07:28 [facility] CBC AUTO DIFFon 07-13-2022 BASO # 0.0 103/ul Normal 0.0-0.1 [facility] Comment on above: Performed By: #### V AGINT #### [facility] [address] [place] [address] Dr. Neil Krishnamurthy Basophils/100 WBC (Bld) 0.5 % Normal 0.2-2.0 [facility] Comment on above: Performed By: #### V AGINT #### [facility] [address] [place] [address] Dr. Neil Krishnamurthy EO # 0.2 103/ul Normal 0.0-0.7 [facility] Comment on above: Performed By: #### V AGINT #### [facility] [address] [place] [address] Dr. Neil Krishnamurthy Eosinophils/100 WBC (Bld) 1.9 % Normal 0.9-7.0 [facility] Comment on above: Performed By: #### V AGINT #### [facility] [address] [place] [address] Dr. Neil Krishnamurthy Erythrocyte distribution width (RBC) [Ratio] 11.7 % Normal 11.0-15.0 [facility] Comment on above: Performed By: #### V AGINT #### [facility] [address] [place] [address] Dr. Neil Krishnamurthy Hematocrit (Bld) [Volume fraction] 41.1 % Normal 36.0-48.0 [facility] Comment on above: Performed By: #### V AGINT #### [facility] [address] [place] [address] Dr. Neil Krishnamurthy Hemoglobin (Bld) [Mass/Vol] 13.7 g/dL Normal 12.0-16.0 [facility] Comment on above: Performed By: #### V AGINT #### [facility] [address] [place] [address] Dr. Neil Krishnamurthy IG # 0.03 10e3/ul Normal 0.00-0.03 [facility] Comment on above: Performed By: #### V AGINT #### [facility] [address] [place] [address] Dr. Neil Krishnamurthy IG % 0.4 % Normal 0.0-0.5 [facility] Comment on above: Performed By: #### V AGINT #### [facility] [address] [place] [address] Dr. Neil Krishnamurthy LYMPH # 2.8 103/ul Normal 1.2-3.8 [facility] Comment on above: Performed By: #### V AGINT #### [facility] [address] [place] [address] Dr. Neil Krishnamurthy Lymphocytes/100 WBC (Bld) 32.9 % Normal 20.5-60.0 [facility] Comment on above: Performed By: #### V AGINT #### [facility] [address] [place] [address] Dr. Neil Krishnamurthy MANUAL DIFF REQ NO Normal [facility] Comment on above: Performed By: #### V AGINT #### [facility] [address] [place] [address] Dr. Neil Krishnamurthy MCH (RBC) [Entitic mass] 30.4 pg Normal 26.7-34.0 [facility] Comment on above: Performed By: #### V AGINT #### [facility] [address] [place] [address] Dr. Neil Krishnamurthy MCHC (RBC) [Mass/Vol] 33.3 g/dL Normal 29.9-35.2 [facility] Comment on above: Performed By: #### V AGINT #### [facility] [address] [place] [address] Dr. Neil Krishnamurthy MCV (RBC) [Entitic vol] 91.3 fL Normal 81.0-99.0 [facility] Comment on above: Performed By: #### V AGINT #### [facility] [address] [place] [address] Dr. Neil Krishnamurthy MONO # 0.7 103/ul Normal 0.3-0.8 [facility] Comment on above: Performed By: #### V AGINT #### [facility] [address] [place] [address] Dr. Neil Krishnamurthy Monocytes/100 WBC (Bld) 8.0 % Normal 1.7-12.0 [facility] Comment on above: Performed By: #### V AGINT #### [facility] [address] [place] [address] Dr. Neil Krishnamurthy NEUT # 4.8 103/ul Normal 1.4-6.5 [facility] Comment on above: Performed By: #### V AGINT #### [facility] [address] [place] [address] Dr. Neil Krishnamurthy Neutrophils/100 WBC (Bld) 56.3 % Normal 43.0-75.0 [facility] Comment on above: Performed By: #### V AGINT #### [facility] [address] [place] [address] Dr. Neil Krishnamurthy Platelet mean volume (Bld) [Entitic vol] 11.0 fL Normal 9.5-13.5 [facility] Comment on above: Performed By: #### V AGINT #### [facility] [address] [place] [address] Dr. Neil Krishnamurthy PLT 242 103/ul Normal 150-450 [facility] Comment on above: Performed By: #### V AGINT #### [facility] [address] [place] [address] Dr. Neil Krishnamurthy RBC 4.50 106/ul Normal 4.20-5.40 [facility] Comment on above: Performed By: #### V AGINT #### [facility] [address] [place] [address] Dr. Neil Krishnamurthy WBC 8.5 103/ul Normal 4.0-11.0 [facility] Comment on above: Performed By: #### V AGINT #### [facility] [address] [place] [address] Dr. Neil Krishnamurthy GLYCOHEMOGLOBIN A1Con 2021 ADA RECOMMENDATION SEE BELOW Normal [facility] Comment on above: Result Comment: ADA RECOMMENDED LIMIT 4.0 - 6.0 ADA THERAPEUTIC TARGET < 7.0 ACTION SUGGESTED > 7.0 Performed By: #### V AGINT #### [facility] [address] [place] [address] Dr. Neil Krishnamurthy Glucose [Mass/Vol] 97 mg/dL Normal [facility] Comment on above: Performed By: #### V AGINT #### [facility] [address] [address] [address] Neil Krishnamurthy HbA1c (Bld) [Mass fraction] 5.0 % Normal 4.5-6.2 [facility] Comment on above: Performed By: #### V AGINT #### [facility] [address] [address] [address] Neil Krishnamurthy LIPID PROFILEon 07-13-2022 CHOL-HDL RATIO NORM SEE BELOW Normal [facility] Comment on above: Result Comment: 3.3 - 4.4 LOW RISK 4.4 - 7.1 AVERAGE RISK 7.1 - 11.0 MODERATE RISK >11.0 HIGH RISK Performed By: #### O X24HR #### [facility] [address] [place] [address] Dr. Neil Krishnamurthy Cholesterol [Mass/Vol] 157 mg/dL Normal <=200 [facility] Comment on above: Performed By: #### O X24HR #### [facility] [address] [address] [address] Neil Krishnamurthy Cholesterol in HDL [Mass/Vol] 50 mg/dL Normal 40-60 [facility] Comment on above: Performed By: #### O X24HR #### [facility] [address] [place] [address] Dr. Neil Krishnamurthy Cholesterol in LDL [Mass/Vol] 79.4 mg/dL Normal [facility] Comment on above: Performed By: #### O X24HR #### [facility] [address] [address] [address] Neil Krishnamurthy Cholesterol.total/C holesterol in HDL [Mass ratio] 3.1 {ratio} Normal [facility] Comment on above: Performed By: #### O X24HR #### [facility] [address] [address] [address] Neil Krishnamurthy HDL NORMAL > or = 60 mg/dl - LO W CARDIOVASCULAR RISK <40 mg/dl - HIGH CARDIOVASCULAR RISK Normal [facility] Comment on above: Performed By: #### O X24HR #### [facility] [address] [address] [address] Neil Krishnamurthy LDL CALC NORMAL SEE BELOW Normal [facility] Comment on above: Result Comment: <100 mg/dl OPTIMAL 100 - 129 mg/dl NEAR OR ABOVE OPTIMAL 130 - 159 mg/dl BORDERLINE HIGH 160 - 189 mg/dl HIGH >190 mg/dl VERY HIGH Performed By: #### O X24HR #### [facility] [address] [address] [address] Neil Krishnamurthy Triglyceride [Mass/Vol] 138 mg/dL Normal <=150 [facility] Comment on above: Performed By: #### O X24HR #### [facility] [address] [place] [address] Dr. Neil Krishnamurthy VLDL CALC 27.6 mg/dL Normal [facility] Comment on above: Performed By: #### O X24HR #### [facility] [address] [place] [address] Dr. Neil Krishnamurthy LIVER PROFILEon 07-13-2022 Albumin [Mass/Vol] 3.5 g/dL Normal 3.4-5.0 [facility] Comment on above: Performed By: #### O X24HR #### [facility] [address] [place] [address] Dr. Neil Krishnamurthy Albumin/Globulin [Mass ratio] 1.0 {ratio} Normal [facility] Comment on above: Performed By: #### O X24HR #### [facility] [address] [address] [address] Neil Krishnamurthy ALP [Catalytic activity/Vol] 83 U/L Normal 46-116 [facility] Comment on above: Performed By: #### O X24HR #### [facility] [address] [place] [address] Dr. Neil Krishnamurthy ALT [Catalytic activity/Vol] 19 U/L Normal 14-59 [facility] Comment on above: Performed By: #### O X24HR #### [facility] [address] [place] [address] Dr. Neil Krishnamurthy AST [Catalytic activity/Vol] 15 U/L Normal 15-37 [facility] Comment on above: Performed By: #### O X24HR #### [facility] [address] [place] [address] Dr. Neil JEAN BAPTISTEI, CONJUGATED 0.1 mg/dL Normal 0.0-0.2 [facility] Comment on above: Performed By: #### O X24HR #### [facility] [address] [place] [address] Dr. Neil Krishnamurthy Bilirubin [Mass/Vol] 0.6 mg/dL Normal 0.2-1.0 [facility] Comment on above: Performed By: #### O X24HR #### [facility] [address] [place] [address] Dr. Neil Krishnamurthy Globulin (S) [Mass/Vol] 3.5 g/dL Normal [facility] Comment on above: Performed By: #### O X24HR #### [facility] [address] [place] [address] Dr. Neil Krishnamurthy Protein [Mass/Vol] 7.0 g/dL Normal 6.4-8.2 [facility] Comment on above: Performed By: #### O X24HR #### [facility] [address] [place] [address] Dr. Neil Krishnamurthy PROF CHEM 8 (BAS METB)on Anion gap [Moles/Vol] 10.8 mmol/L Normal [facility] Comment on above: Performed By: #### O X24HR #### [facility] [address] [place] [address] Dr. Neil Krishnamurthy Calcium [Mass/Vol] 8.2 mg/dL Critically low 8.5-10.[address] [facility] Comment on above: Performed By: #### O X24HR #### [facility] [address] [place] [address] Dr. Neil Krishnamurthy Chloride [Moles/Vol] 105 mmol/L Normal 98-107 [facility] Comment on above: Performed By: #### O X24HR #### [facility] [address] [place] [address] Dr. Neil Krishnamurthy CO2 [Moles/Vol] 24.5 mmol/L Normal 21.0-32.0 [facility] Comment on above: Performed By: #### O X24HR #### [facility] [address] [address] [address] Neil Krishnamurthy Creatinine [Mass/Vol] 0.74 mg/dL Normal 0.55-1.02 [facility] Comment on above: Performed By: #### O X24HR #### [facility] [address] [address] [address] Neil Krishnamurthy EGFR-AF NAMIBIAN >60 Normal >=60 [facility] Comment on above: Performed By: #### O X24HR #### [facility] [address] [address] [address] Neil Krishnamurthy EGFR-NON AF NAMIBIAN >60 Normal >=60 [facility] Comment on above: Performed By: #### O X24HR #### [facility] [address] [address] [address] Neil Krishnamurthy Glucose [Mass/Vol] 106 mg/dL Normal 74-106 [facility] Comment on above: Performed By: #### O X24HR #### [facility] [address] [address] [address] Neil Krishnamurthy Potassium [Moles/Vol] 3.5 mmol/L Normal 3.5-5.1 [facility] Comment on above: Performed By: #### O X24HR #### [facility] [address] [address] [address] Neil Krishnamurthy Sodium [Moles/Vol] 137 mmol/L Normal 136-145 [facility] Comment on above: Performed By: #### O X24HR #### [facility] [address] [address] [address] Neil Krishnamurthy Urea nitrogen [Mass/Vol] 11.0 mg/dL Normal 7.0-18.0 [facility] Comment on above: Performed By: #### O X24HR #### [facility] [address] [address] [address] Neil Krishnamurthy Urea nitrogen/Creatinine [Mass ratio] 14.8 mg/mg Normal [facility] Comment on above: Performed By: #### O X24HR #### [facility] [address] [place] [address] Dr. Neil Krishnamurthy TSHon 07-13-2022 TSH 1.166 uIU/mL Normal 0.358-3.740 [facility] Comment on above: Performed By: #### O X24HR #### [facility] [address] [address] [address] Neil Krishnamurthy VITAMIN D 25 OHon 07-13-2022 VIT D 25-OH 23.8 ng/mL Normal [facility] Comment on above: Performed By: #### V ITAD #### [facility] [address] [place] [address] Dr. Neil Krishnamurthy VIT D RANGES SEE BELOW Normal [facility] Comment on above: Result Comment: <20 ng/mL Vit D deficient 20 - <30 ng/mL Vit D insufficient 30 - 100 ng/mL Vit D sufficient >100 ng/mL Potential Toxicity Performed By: #### V ITAD #### [facility] [address] [place] [address] Dr. Neil Krishnamurthy MG MAMM SCREEN 3D MARKEL CADon 06-23-2022 MG MAMM SCREEN 3D MARKEL CAD Patient: LUL BRITTON Exam Date: 06/23/2022 : 1985 Gender:F Ordering : DR KATHY BARRAGAN . Admission #: [id number] Family : Order #: [id number] CLICK HERE TO VIEW EXAM RADIOLOGY REPORT PROCEDURE: MAMMOGRAM SCREENING 3D BILATERAL CAD COMPARISON: None. INDICATIONS: Screening mammography Calculator Name NCI Breast Cancer Risk Assessment Tool 5 Year Breast Cancer Risk 0.60% Lifetime Breast Cancer Risk 20.30% Personal Breast Cancer No Personal Ovarian Cancer No Treatments None Family Cancers Mother with breast cancer at age 54; Grandmother-maternal with cervical cancer at age 30. LOCATION: [facility] BREAST COMPOSITION: Heterogeneously dense,which may obscure small masses. FINDINGS: DIAGNOSTIC CATEGORY 2--BENIGN FINDING. NO CHANGE FROM COMPARISON. Scattered benign-appearing nodules are present. Scattered benign-appearing calcifications are present. Scattered benign-appearing lymph nodes are present. RIGHT BREAST: No significant suspicious finding. LEFT BREAST: No significant suspicious finding. RECOMMENDATIONS: CLINICAL EVALUATION. PLEASE NOTE: A NORMAL MAMMOGRAM DOES NOT EXCLUDE THE POSSIBILITY OF BREAST CANCER. A CLINICALLY SUSPICIOUS PALPABLE LUMP SHOULD BE BIOPSIED. Dictated by: Ric Quezada MD on 06/23/2022 at 11:15 Approved by: Ric Quezada MD on 06/23/2022 at 11:17 Normal [facility] PAP ACOG PANEL 2: 30 to 66on 06-16-2022 . . [facility] Comment on above: Result Comment: Perf ormed at: WB Performed By: #### C O2, CL, BUN, CREA, URIC, K, CA, NA #### [facility] [address] [address] [address] Neil Krishnamurthy Age Gdln ACOG Testing 30-65 [facility] Comment on above: Performed By: #### C O2, CL, BUN, CREA, URIC, K, CA, NA #### [facility] [address] [address] [address] Neil Krishnamurthy DIAGNOSIS: Comment [facility] Comment on above: Result Comment: NEGA TIVE FOR INTRAEPITHELIAL LESION OR MALIGNANCY. Performed at: WB Performed By: #### C O2, CL, BUN, CREA, URIC, K, CA, NA #### [facility] [address] [address] [address] Neil Krishnamurthy HPV Aptima Negative [facility] Comment on above: Result Comment: This nucleic acid amplification test detects fourteen high-risk HPV types (16,18,31,33,35,39,45,51,52,56,58,59,66,68) without differentiation. Performed at: =G Performed By: #### C O2, CL, BUN, CREA, URIC, K, CA, NA #### [facility] [address] [address] [address] Neil Krishnamurthy Methodology: Comment [facility] Comment on above: Result Comment: This liquid based ThinPrep(R) pap test was screened with the use of an image guided system. Performed at: WB Performed By: #### C O2, CL, BUN, CREA, URIC, K, CA, NA #### [facility] [address] [address] [address] Neil Krishnamurthy Note: Comment [facility] Comment on above: Result Comment: The Pap smear is a screening test designed to aid in the detection of premalignant and malignant conditions of the uterine cervix. It is not a diagnostic procedure and should not be used as the sole means of detecting cervical cancer. Both false-positive and false-negative reports do occur. . Performed at: WB Performed By: #### C O2, CL, BUN, CREA, URIC, K, CA, NA #### [facility] [address] [address] [address] Neil Krishnamurthy Performed by: Comment Normal [facility] Comment on above: Result Comment: Fang Song, International Marketing Manager (ASCP) Performed at: WB Performed By: #### C O2, CL, BUN, CREA, URIC, K, CA, NA #### [facility] [address] [address] [address] Neil Krishnamurthy Specimen adequacy: Comment Normal [facility] Comment on above: Result Comment: Sati sfactory for evaluation. Endocervical and/or squamous metaplastic cells (endocervical component) are present. Performed at: WB Performed By: #### C O2, CL, BUN, CREA, URIC, K, CA, NA #### [facility] [address] [address] [address] Neil Krishnamurthy VAGINITIS/VAGINOSIS DNA PROB Jovi 06-03-2022 Rachel species Negative Normal Negative [facility] Comment on above: Performed By: #### V AGINT #### [facility] [address] [address] [address] Neil Krishnamurthy Gardnerella vaginalis Positive Abnormal [facility] Comment on above: Performed By: #### V AGINT #### [facility] [address] [address] [address] Neil Krishnamurthy Trichomonas vaginalis Negative [facility] Comment on above: Performed By: #### V AGINT #### [facility] [address] [address] [address] Neil BURK Quick Testingon 2020 Result Positive [facility] Other XR ABDOMEN LIMITED (KUB)on XR ABDOMEN LIMITED (KUB) EXAMINATION:SUPINE VIEW(S) OF THE RNOSMXE8607/08/2017 1:38 pmCOMPARISON:October 19, 2010HISTORY:ORDERING SYSTEM PROVIDED HISTORY: Kidney stonesTECHNOLOGIST PROVIDED HISTORY:Reason for exam:->kidney stonesOrdering Physician Provided Reason for Exam: bilat kidney stonesAcuity: AcuteType of Exam: InitialFINDINGS:Surgic al clips in the gallbladder fossa prior cholecystectomy. There are noabnormal calcifications seen overlying the kidneys along the course of theureters. The osseous structures appear unremarkable.IMPRESSIO N: No acute abnormality.Interprete d by:TIMBO Menendezigned by:Raheel Morales MD07/08/17Final result Normal [facility] Vital Signs Date Time Vital Sign Value Performing Clinician Facility 03-06-2023 13:50-0400 Body height 152.4 cm Leana Soler Other [facility] Other 03-06-2023 13:50-0400 Body mass index (BMI) [Ratio] 42.3 kg/m2 Leana Soler Other [facility] Other 03-06-2023 13:50-0400 Body temperature 98.2 [degF] Leana Soler Other [facility] Other 03-06-2023 13:50-0400 Body weight 98.25 kg Leana Soler Other [facility] Other 03-06-2023 13:50-0400 Diastolic blood pressure 76 mm[Hg] Leana Soler Other [facility] Other 03-06-2023 13:50-0400 Respiratory rate 18 /min Leana Soler Other [facility] Other 03-06-2023 13:50-0400 SaO2% (BldA) [Mass fraction] 100 % Leana Soler Other [facility] Other 03-06-2023 13:50-0400 Systolic blood pressure 111 mm[Hg] Leana Soler Other [facility] Other 09-01-2022 17:15-0500 Body height 152.4 cm Jennyfer Ruiz Other [facility] Other 09-01-2022 17:15-0500 Body mass index (BMI) [Ratio] 41.98 kg/m2 Jennyfer Ruiz Other [facility] Other 09-01-2022 17:15-0500 Body temperature 98.4 [degF] Jennyfer Ruiz Other [facility] Other 09-01-2022 17:15-0500 Body weight 97.52 kg Jennyfer Ruiz Other [facility] Other 09-01-2022 17:15-0500 Respiratory rate 18 /min Jennyfer Ruiz Other [facility] Other 09-01-2022 17:15-0500 SaO2% (BldA) [Mass fraction] 99 % Jennyfer Ruiz Other [facility] Other 04-22-2022 14:30-0400 Body height 152.4 cm Jessenia Ortiz Other [facility] Other 04-22-2022 14:30-0400 Body mass index (BMI) [Ratio] 40.42 kg/m2 Jsesenia Ortiz Other [facility] Other 04-22-2022 14:30-0400 Body weight 93.9 kg Jessenia Ortiz Other [facility] Other 04-22-2022 14:30-0400 Diastolic blood pressure 89 mm[Hg] Jessenia Ortiz Other [facility] Other 04-22-2022 14:30-0400 Respiratory rate 18 /min Jessenia Ortiz Other [facility] Other 04-22-2022 14:30-0400 SaO2% (BldA) [Mass fraction] 100 % Jessenia Ortiz Other [facility] Other 04-22-2022 14:30-0400 Systolic blood pressure 116 mm[Hg] Jessenia Ortiz Other [facility] Other 07-22-2021 11:00-0400 Body height 152.4 cm Jennyfer Sara Other [facility] Other 07-22-2021 11:00-0400 Body mass index (BMI) [Ratio] 38.08 kg/m2 Jennyfer Sara Other [facility] Other 07-22-2021 11:00-0400 Body temperature 96.2 [degF] Jennyfer Sara Other [facility] Other 07-22-2021 11:00-0400 Body weight 88.45 kg Jennyfer Sara Other [facility] Other 07-22-2021 11:00-0400 Respiratory rate 18 /min Jennyfer Maravillamond Other [facility] Other 07-22-2021 11:00-0400 SaO2% (BldA) [Mass fraction] 99 % Jennyfer Ruiz Other [facility] Other Encounters Encounter Date Encounter Type Care Provider Facility Start: 07-10-2024 ambulatory XIMENA Melo ty:[facility] Start: 09-05-2023 End: 09-06-2023 ambulatory Joanne Cameron MD Facility:[facility] Start: 08-15-2023 End: 08-16-2023 ambulatory Joanne Cameron MD Facility:[facility] Start: 07-05-2023 End: 07-06-2023 ambulatory XIMENA SCALES Facility:[facility] Start: 07-05-2023 End: 07-05-2023 Patient encounter procedure XIMENA SCALES [facility] Start: 03-06-2023 End: 03-06-2023 Patient encounter procedure KEN Soler Work Phone: [facility] Work Phone: Start: 03-06-2023 End: 03-06-2023 ambulatory Leana Soler [facility] Other Start: 03-06-2023 Office outpatient vi sit 15 minutes [facility] Start: 02-08-2023 End: 02-09-2023 ambulatory [facility] SCAL[facility] Start: 12-06-2022 End: 12-07-[address] ISRA CHAN . Facility: Start: 11-17-2022 End: 11-18-[address] KIRBY ALBERTO Facility:[facility] Start: 11-01-2022 End: 12-11-[address] KIRBY ALBERTO Facility:[facility] Start: 10-30-2022 End: 10-31-[address] KIRBY ALBERTO Facility:[facility] Start: 10-12-2022 End: 10-13-[address] KIRBY ALBERTO Facility:[facility] Start: 10-04-2022 End: 10-05-2022 ambulatory Isra CHAN Facility:[facility] Start: 10-04-2022 End: 10-04-2022 Patient encounter procedure Isra CHAN [facility] Start: 10-02-2022 End: 10-03-[address] ISRA CHAN . Facility:[facility] Start: 09-01-2022 End: 09-01-2022 ambulatory Jennyfer Ruiz Other [facility] Other Start: 09-01-2022 Office outpatient vi sit 15 minutes Jennyfer Ruiz [facility] Start: 08-30-2022 ambulatory XIMENA SCALES Facility :[facility] Start: 08-27-2022 End: 08-28-[address] RIC QUEZADA Facility: Start: 07-18-2022 Encounter for genera l adult medical examination without abnormal findings DR KIRBY ALBERTO [facility] Start: 07-13-2022 End: [address] KIRBY ALBERTO Facility:[facility] Start: 07-13-2022 End: 2022 Encounter for general adult medical examination without abnormal findings DR KIRBY ALBERTO Facility:[facility] Start: 06-23-2022 End: 06-24-[address] KATHY BARRAGAN . Facility:[facility] Start: 06-09-2022 End: 06-09-[address] KATHY BARRAGAN . Facility:[facility] Start: 06-02-2022 End: 06-02-[address] DOCTOR GOODSON Facility:[facility] Start: 04-22-2022 End: 08-04-2022 ambulatory Jessenia Ortiz Other [facility] Other Start: 04-22-2022 Office outpatient vi sit 15 minutes Jessenia Harrisault [facility] Start: 07-22-2021 End: 07-22-2021 ambulatory Jennyfer Ruiz Other [facility] Other Start: 07-22-2021 Office outpatient vi sit 15 minutes Jennyfer Ruiz [facility] Start: 07-08-2017 End: 07-09-2017 Ambulatory MINGO SCHUMACHER [facility] Procedures Date Procedure Procedure Detail Performing Clinician Start: 03-06-2023 X-ray of left foot SOCK LINER Leana Soler Work Phone: Start: 07-08-2017 X-ray exam of abdomen S YAJAIRA SCHUMACHER Appendectomy Isra CHAN Cholecystectomy Isra KAISER Colonoscopy Isra CHAN Hernia of abdominal cavity (disorder) Isra CHAN Ligation of fallopian tube P sabrina CHAN Lithotripsy Isra CHAN Immunizations Immunization Date Immunization Notes Care Provider Griselda adame 05-11-2010 tetanus toxoid, redu jose juan diphtheria toxoid, and acellular pertussis vaccine, adsorbed Isra CHAN [facility] 01-10-2007 varicella virus vaccine Patr jorje CHAN [facility] 12-07-2006 varicella virus vaccine Patr jorje CHAN [facility] 04-25-2006 hepatitis B vaccine, pediatric or pediatric/adolescent dosage Isra CHAN [facility] 12-20-2005 hepatitis B vaccine, pediatric or pediatric/adolescent dosage Isra CHAN [facility] 11-15-2005 hepatitis B vaccine, pediatric or pediatric/adolescent dosage Isra CHAN [facility] 03-10-1999 DTaP, unspecified formulation Isra CHAN [facility] 03-10-1999 measles, mumps and rubella virus vaccine Isra CHAN [facility] Payers Date Payer Category Payer Self-pay 2022 Medicaid [id number] 2022 Unknown 2017 Unknown [id number] 2.1 [id number] 1986 Unknown [id number] 2.16.84 0.1.703510.3.579.2.593 1986 Unknown [id number] 2.16.84 0.1.016281.3.579.2.593 1986 Unknown [id number] 2.16.84 0.1.060187.3.579.2.593 1986 Unknown [id number] 2.16.84 0.1.401499.3.579.2.593 1986 Unknown [id number] 2.16.84 0.1.012195.3.579.2.593 1986 Unknown [id number] 2.16.84 0.1.270608.3.579.2.593 1986 Unknown [id number] 2.16.84 0.1.409598.3.579.2.593 1986 Unknown [id number] 2.16.84 0.1.556107.3.579.2.593 1986 Unknown [id number] 2.16.84 0.1.321037.3.579.2.593 1986 Unknown [id number] 2.16.84 0.1.173284.3.579.2.593 1986 Unknown [id number] 2.16.84 0.1.679074.3.579.2.593 1986 Unknown [id number] 2.16.8 40.1.568894.3.579.2.727 1986 Unknown [id number] 2.16.8 40.1.050252.3.579.2.727 1986 Unknown [id number] 2.16.8 40.1.026636.3.579.2.727 1986 Unknown [id number] 2.16.8 40.1.623009.3.579.2.727 1986 Unknown [id number] 2.16. 840.1.055236.3.579.2.196 1986 Unknown [id number] 2.16. 840.1.107645.3.579.2.196 1959 Unknown [id number] 1959 Unknown [id number] 2.1 6.840.1.111364.19 1959 Unknown [id number] Unknown [id number] 2.16.8 40.1.449265.19 Unknown [id number] 2.16.8 40.1.948169.3.579.2.531 Social History Date Type Detail Facility Unknown if ever smoked [facility] Other Sex Assigned At [facility] Start: 10-04-2022 End: 02-08-2023 Tobacco smoking status Never smoked tobacco (finding) [facility] Start: 1985 Sex Assigned At Female [facility] Functional Status Date Assessment Result Facility 07-05-2023 Functional Status N/A [facility] 10-04-2022 Functional Status N/A [facility] Clinical Notes 07-22-2021 to 06-13-2023 Note Date & Type Note Facility 06-13-2023 Hospital Discharg e instructions Patient Education 06/13/2023 08:46:41 Dietary Guidelines to Help Prevent Kidney Stones Dietary Guidelines to Help Prevent Kidney Stones Kidney stones are deposits of minerals and salts that form inside your kidneys. Your risk of developing kidney stones may be greater depending on your diet, your lifestyle, the medicines you take, and whether you have certain medical conditions. Most people can lower their chances of developing kidney stones by following the instructions below. Your dietitian may give you more specific instructions depending on your overall health and the type of kidney stones you tend to develop. What are tips for following this plan? Reading food labels Choose foods with no salt added or low-salt labels. Limit your salt (sodium) intake to less than 1,500 mg a day. Choose foods with calcium for each meal and snack. Try to eat about 300 mg of calcium at each meal. Foods that contain 200 500 mg of calcium a serving include: ?8 oz (237 mL) of milk, iyogjsu-tovghwubiixd-uypfr milk, and calcium-fortifiedfruit juice. Calcium-fortified means that calcium has been added to these drinks. ?8 oz (237 mL) of kefir, yogurt, and soy yogurt. ?4 oz (114 g) of tofu. ?1 oz (28 g) of cheese. ?1 cup (150 g) of dried figs. ?1 cup (91 g) of cooked broccoli. ?One 3 oz (85 g) can of sardines or mackerel. Most people need 1,000 1,500 mg of calcium a day. Talk to your dietitian about how much calcium is recommended for you. Shopping Buy plenty of fresh fruits and vegetables. Most people do not need to avoid fruits and vegetables, even if these foods contain nutrients that may contribute to kidney stones. When shopping for convenience foods, choose: ?Whole pieces of fruit. ?Pre-made salads with dressing on the side. ?Low-fat fruit and yogurt smoothies. Avoid buying frozen meals or prepared deli foods. These can be high in sodium. Look for foods with live cultures, such as yogurt and kefir. Choose high-fiber grains, such as whole-wheat breads, oat bran, and wheat cereals. Cooking Do not add salt to food when cooking. Place a salt shaker on the table and allow each person to add his or her own salt to taste. Use vegetable protein, such as beans, textured vegetable protein (TVP), or tofu, instead of meat in pasta, casseroles, and soups. Meal planning Eat less salt, if told by your dietitian. To do this: ?Avoid eating processed or pre-made food. ?Avoid eating fast food. Eat less animal protein, including cheese, meat, poultry, or fish, if told by your dietitian. To do this: ?Limit the number of times you have meat, poultry, fish, or cheese each week. Eat a diet free of meat at least 2 days a week. ?Eat only one serving each day of meat, poultry, fish, or seafood. ?When you prepare animal protein, cut pieces into small portion sizes. For most meat and fish, one serving is about the size of the palm of your hand. Eat at least five servings of fresh fruits and vegetables each day. To do this: ?Keep fruits and vegetables on hand for snacks. ?Eat one piece of fruit or a handful of berries with breakfast. ?Have a salad and fruit at lunch. ?Have two kinds of vegetables at dinner. Limit foods that are high in a substance called oxalate. These include: ?Spinach (cooked), rhubarb, beets, sweet potatoes, and Guatemalan chard. ?Peanuts. ?Potato chips, guinean fries, and baked potatoes with skin on. ?Nuts and nut products. ?Chocolate. If you regularly take a diuretic medicine, make sure to eat at least 1 or 2 servings of fruits or vegetables that are high in potassium each day. These include: ?Avocado. ?Banana. ?[place], prune, carrot, or tomato juice. ?Baked potato. ?Cabbage. ?Beans and split peas. Lifestyle Drink enough fluid to keep your urine pale yellow. This is the most important thing you can do. Spread your fluid intake throughout the day. If you drink alcohol: ?Limit how much you use to: ?0 1 drink a day for women who are not . ?0 2 drinks a day for men. ?Be aware of how much alcohol is in your drink. In the [place] one drink equals one 12 oz bottle of beer (355 mL), one 5 oz glass of wine (148 mL), or one 1 oz glass of hard liquor (44 mL). Lose weight if told by your health care provider. Work with your dietitian to find an eating plan and weight loss strategies that work best for you. General information Talk to your health care provider and dietitian about taking daily supplements. You may be told the following depending on your health and the cause of your kidney stones: ?Not to take supplements with vitamin C. ?To take a calcium supplement. ?To take a daily probiotic supplement. ?To take other supplements such as magnesium, fish oil, or vitamin B6. Take tbxx-ioo-tgbtort and prescription medicines only as told by your health care provider. These include supplements. What foods should I limit? Limit your intake of the following foods, or eat them as told by your dietitian. Vegetables Spinach. Rhubarb. Beets. Canned vegetables. Pickles. Olives. Baked potatoes with skin. Grains Wheat bran. Baked goods. Salted crackers. Cereals high in sugar. Meats and other proteins Nuts. Nut butters. Large portions of meat, poultry, or fish. Salted, precooked, or cured meats, such as sausages, meat loaves, and hot dogs. Dairy Cheese. Beverages Regular soft drinks. Regular vegetable juice. Seasonings and condiments Seasoning blends with salt. Salad dressings. Soy sauce. Ketchup. Barbecue sauce. Other foods Canned soups. Canned pasta sauce. Casseroles. Pizza. Lasagna. Frozen meals. Potato chips. Bulgarian fries. The items listed above may not be a complete list of foods and beverages you should limit. Contact a dietitian for more information. What foods should I avoid? Talk to your dietitian about specific foods you should avoid based on the type of kidney stones you have and your overall health. Fruits Grapefruit. The item listed above may not be a complete list of foods and beverages you should avoid. Contact a dietitian for more information. Summary Kidney stones are deposits of minerals and salts that form inside your kidneys. You can lower your risk of kidney stones by making changes to your diet. The most important thing you can do is drink enough fluid. Drink enough fluid to keep your urine pale yellow. Talk to your dietitian about how much calcium you should have each day, and eat less salt and animal protein as told by your dietitian. This information is not intended to replace advice given to you by your health care provider. Make sure you discuss any questions you have with your health care provider. Document Revised: 05/17/2022 Document Reviewed: 05/17/2022 [employer] Patient Education 2022 [employer]. Follow Up Care 02/08/2023 16:17:30 With:YORDY WILLSON, XIMENA Lam, URL Address: [address] [place] [address] [phone] When: Unknown Comments:2 yr w/ BOGDAN and [facility] 03-06-2023 Evaluation note Encounter Date Diagnosis Assessment Notes Feb, Acute pain of left foot (ICD-10 - M79.672) X-ray of left foot is negative for any acute bony findings. No fracture or dislocation. Does have evidence of plantar heel spur which is unrelated. Feb, Acute gout of left foot, unspecified cause (ICD-10 - M10.9) Low-purine diet material was printed, Gout material was printed Discussed with patient given no abnormality on x-ray, rapid onset pain and swelling-suspect gout diagnosis. No current signs of cellulitis. Will treat with 9-day prednisone taper. Finish entire course. May use Tylenol for discomfort. Ice and elevation encouraged. Follow-up with PCP if not gradually improving over the next week, sooner if significantly worsening, develops rapidly spreading erythema, warmth, fever. Patient verbalized understanding of treatment plan. [facility] Other 01-16-2023 NoteChief Complaint Referral * Kidney Stones HPI Staff Evaluation requested by Dr Kirby Alberto due to Kidney Stone. Pt is a new pt, never before seen in our office. BOGDAN done 08/27/22 @ [facility]. Hx of Kidney Stones since age of 20. Previously treated in [facility]. S/P Lithotripsy in 2017. Hx of 8Lithotripsy surgeries. Bilateral Kidney Stones. 1 did cause major infection in the past. Rt flank pain for the past couple months, has increased these past few weeks. Radiating around to Rt S/P area. Denies pain/burning and blood in urine. Denies any urinary complaints at this time. History of Present Illness Tests reviewed: reviewed UA, referral records, KUB. I have reviewed the previous health record information and history for this patient from Dr. Kirby Alberto. I have reviewed and verified the staff HPI to be accurate for this encounter. There have been no associated fever, chills, flank pain, or blood in the urine. Denies any urinary infections since last encounter. Review of Systems PHQ Score Initial Depression Screen Score: 0 ROS - Provider Constitutional: denies weight loss, denies hot flashes. Eyes: denies eye problems. Gastrointestinal: denies nausea, denies vomiting. Cardiovascular: denies chest pain or angina. Integumentary: no dryness Musculoskeletal: denies musculoskeletal symptoms. ENMT: denies otolaryngeal symptoms. Respiratory: no shortness of breath. Heme/Lymph: denies easy bleeding tendency, denies easy bruising tendency. Psychiatric: no confusion, no anxiety. Genitourinary: See HPI. Physical Exam Vitals & Measurements HT: 60 in HT: 153 cm WT: 113.5 kg WT: 249.7 lb BMI: 48.49 General Appearance: alert , no acute distress, well nourished, well developed female. Head: normocephalic . Eyes: normal orbit and globe. ENMT: normal examination of external ears. Chest: Lungs CTA, respirations non labored . Cardiovascular: regular rate and rhythm. Abdomen: soft, non distended, no tenderness, no mass or organomegaly, no hernia. Right flank tenderness. Genitourinary: bladder nonpalpable, no flank tenderness. Lymph Nodes: unremarkable palpation of the cervical area. Skin: warm, dry, no bruising. Psychiatric: cooperative, affect appropriate for age, normal judgement, euthymic mood. Assessment/Plan 1. Kidney stones (N20.0: Calculus of kidney) New patient referred by Dr. Kirby Alberto for nephrolithiasis. KUB done 08/27/22 at [facility] shows bilateral stones. No visible ureteral calcifications. Personal review: 6mm stone on R > L. A couple tiny stones on the left. No other recent imaging. Pt has been having right flank pain for the past couple months, pain has increased over the past few weeks. Pain radiates around right suprapubic area. Denies pain/burning and blood in urine. Denies any urinary complaints at this time. UA today negative for blood and infection. Pt has had a met workup in the past, states she makes too much calcium and was put on HCTZ. Stoppedtaking it and stopped seeing a physician regularly until recently. Recommends repeat metabolic workup including 24 hour urine and blood work for future stone prevention. Pt is unsure if pain is from kidney stone or something else. Pt thinks she has had a dye study done in the past but not for her kidneys. Not allergic to IV contrast. Explained when kidney stones cause pain, uncertain if pain is being caused by stone. PE: right flank tenderness. Follow up in 2 mos after met workup and IVP. 2. History of kidney stones (Z87.442: Personal history of urinary calculi) Hx of kidney stones since age 20. Previously treated in [place]. S/P Lithotripsy in 2017. Hx of 8 lithotripsy surgeries. Had major infection in the past due to stones. Has had pain from stones. Follow-up With When Contact Information CLARITZA JOHNSTON, Isra Lorenzana, [facility] [address], [place] [address]- Additional Instructions: f/u in 2 mos after met w/up and IVP Patient Education Dietary Guidelines to Help Prevent Kidney Stones Tamika Colbert, personally scribed for Dr. Chan on 10/04/2022 14:25:21. . Documentation recorded by the scribe, Tamika Pizarro, accurately reflects the services(s) I performed and decisions made by me. Authenticated by Dr. Chan on 10/04/2022 14:29:01. Problem List/Past Medical History Ongoing Heart murmur History of kidney stones Kidney stones Historical No qualifying data Procedure/Surgical History Appendectomy, Cholecystectomy, Colonoscopy, Hernia, Lithotripsy, Tubal ligation. Medications Paxil 20 mg Tab, Oral, Daily Topamax 25 mg Tab, Oral, BID Vitamin D3 2000 intl units oral tablet Allergies penicillin G benzathine (Eruption) Social History Tobacco Never (less than 100 in lifetime) Tobacco Use:. Current vaping or e-cigarette use Smokeless TobaccoUse:., 10/04/2022 Family History Family history is negative Immunizations Vaccine D (more content not included)...[facility]Result Comment: Electronically Signed By: Isra CHAN MD\.br\Date and Time Signed: 10/04/22 14:29 EST\.br\Electronically Co-Signed By: Tamika Pizarro\.br\Date and Time Co-Signed: 10/04/22 14:25 [id number] Hospital Discharge instructions Patient Education 10/04/2022 08:31:43 Dietary Guidelines to Help Prevent Kidney Stones Dietary Guidelines to Help Prevent Kidney Stones Kidney stones are deposits of minerals and salts that form inside your kidneys. Your risk of developing kidney stones may be greater depending on your diet, your lifestyle, the medicines you take, and whether you have certain medical conditions. Most people can reduce their chances of developing kidney stones by following the instructions below. Depending on your overall health and the type of kidney stones you tend to develop, your dietitian may give you more specific instructions. What are tips for following this plan? Reading food labels Choose foods with no salt added or low-salt labels. Limit your sodium intake to less than 1500 mg per day. Choose foods with calcium for each meal and snack. Try to eat about 300 mg of calcium at each meal.Foods that contain 200 500 mg of calcium per serving include: ?8 oz (237 ml) of milk, fortified nondairy milk, and fortified fruit juice. ?8 oz (237 ml) of kefir, yogurt, and soy yogurt. ?4 oz (118 ml) of tofu. ?1 oz of cheese. ?1 cup (300 g) of dried figs. ?1 cup (91 g) of cooked broccoli. ?1 3 oz can of sardines or mackerel. Most people need 1000 to 1500 mg of calcium each day. Talk to your dietitian about how much calciumis recommended for you. Shopping Buy plenty of fresh fruits and vegetables. Most people do not need to avoid fruits and vegetables, even if they contain nutrients that may contribute to kidney stones. When shopping for convenience foods, choose: ?Whole pieces of fruit. ?Premade salads with dressing on the side. ?Low-fat fruit and yogurt smoothies. Avoid buying frozen meals or prepared deli foods. Look for foods with live cultures, such as yogurt and kefir. Cooking Do not add salt to food when cooking. Place a salt shaker on the table and allow each person to addhis or her own salt to taste. Use vegetable protein, such as beans, textured vegetable protein (TVP), or tofu instead of meat in pasta, casseroles, and soups. Meal planning Eat less salt, if told by your dietitian. To do this: ?Avoid eating processed or premade food. ?Avoid eating fast food. Eat less animal protein, including cheese, meat, poultry, or fish, if told by your dietitian. To dothis: ?Limit the number of times you have meat, poultry, fish, or cheese each week. Eat a diet free of meat at least 2 days a week. ?Eat only one serving each day of meat, poultry, fish, or seafood. ?When you prepare animal protein, cut pieces into small portion sizes. For most meat and fish, one serving is about the size of one deck of cards. Eat at least 5 servings of fresh fruits and vegetables each day. To do this: ?Keep fruits and vegetables on hand for snacks. ?Eat 1 piece of fruit or a handful of berries with breakfast. ?Have a salad and fruit at lunch. ?Have two kinds of vegetables at dinner. Limit foods that are high in a substance called oxalate. These include: ?Spinach. ?Rhubarb. ?Beets. ?Potato chips and guinean fries. ?Nuts. If you regularly take a diuretic medicine, make sure to eat at least 1 2 fruits or vegetables high in potassium each day. These include: ?Avocado. ?Banana. ?[place], prune, carrot, or tomato juice. ?Baked potato. ?Cabbage. ?Beans and split peas. General instructions Drink enough fluid to keep your urine clear or pale yellow. This is the most important thing you can do. Talk to your health care provider and dietitian about taking daily supplements. Depending on your health and the cause of your kidney stones, you may be advised: ?Not to take supplements with vitamin C. ?To take a calcium supplement. ?To take a daily probiotic supplement. ?To take other supplements such as magnesium, fish oil, or vitamin B6. Take all medicines and supplements as told by your health care provider. Limit alcohol intake to no more than 1 drink a day for non women and 2 drinks a day for men. One drink equals 12 oz of beer, 5 oz of wine, or 1 oz of hard liquor. Lose weight if told by your health care provider. Work with your dietitian to find strategies and an eating plan that works best for you. What foods are not recommended? Limit your intake of the following foods, or as told by your dietitian. Talk to your dietitian about specific foods you should avoid based on the type of kidney stones and your overall health. Grains Breads. Bagels. Rolls. Baked goods. Salted crackers. Cereal. Pasta. Vegetables Spinach. Rhubarb. Beets. Canned vegetables. Pickles. Olives. Meats and other protein foods Nuts. Nut butters. Large portions of meat, poultry, or fish. Salted or cured meats. Deli meats. Hotdogs. Sausages. Dairy Cheese. Beverages Regular soft drinks. Regular vegetable juice. Seasonings and other foods Seasoning blends with salt. Salad dressings. Canned soups. Soy sauce. Ketchup. Barbecue sauce. Canned pasta sauce. Casseroles. Pizza. Lasagna. Frozen meals. Potato chips. Bulgarian fries. Summary You can reduce your risk of kidney stones by making changes to your diet. The most important thing you can do is drink enough fluid. You should drink enough fluid to keep your urine clear or pale yellow. Ask your health care provider or dietitian how much protein from animal sources you should eat eachday, and also how much salt and calcium you should have each day. This information is not intended to replace advice given to you by your health care provider. Make sure you discuss any questions you have with your health care provider. Document Released: 12/31/2011 Document Revised: 12/26/2019 Document Reviewed: 08/16/2017 [employer] Patient Education 2020 [employer]. Follow Up Care 08/30/2022 15:20:43 With:CLARITZA JOHNSTON, Isra Lorenzana, URL Address: [facility] [address] , [place] [address]- When: Unknown [facility] 12-14-2022 Evaluation note* Encounter Date Diagnosis Assessment Notes Treatment Notes Treatment Clinical Notes Aug, Contact with and (suspected) exposure to covid-19 (ICD-10 - Z20.822) Aug, Viral upper respiratory infection (ICD-10 - J06.9) Viral upper respiratory infection: adult home care material was printed Drink plenty fluids, get plenty of rest. Take Tylenol or Motrin as needed for aches pains or fevers. Follow-up with family physician if no improvement in 2 to 3 days. Take the prednisone as prescribed until gone. Use the albuterol inhaler as prescribed as needed for cough or shortness of breath [employer] Other 08-04-2022 Evaluation note* Encounter Date Diagnosis Assessment Notes Treatment Notes Treatment Clinical Notes Apr, Left acute otitis media (ICD-10 - H66.92) Ear infections are often a secondary infection caused from an URI, the flu or allergies. Take medication as directed. Complete all doses, even if you feel better. Tylenol or ibuprofen can help with pain. Warm pack to area for comfort helps as well. Follow up with primary care provider if no improvement of symptoms. [employer] Other 11-03-2021 Evaluation note* Encounter Date Diagnosis Assessment Notes Treatment Notes Treatment Clinical Notes Jul, Contact with and (suspected) exposure to other viral communicable diseases (ICD-10 - Z20.828) Jul, COVID-19 (ICD-10 - U07.1) Jul, Other Additional time spent conducting pre-visit phone call, screening for symptoms, instructions on social distancing, application and removal of PPE, and cleaning of examination room, equipment and supplies was preformed. Patient education given for testing methodology and results. Patient care instructions given in writting by [facility] document. [employer] Other Evaluation + Plan note Future Appointments Appointment Date:01/10/2023 03:15:00 PM Scheduled Provider:Isra CHAN MD Location:[facility] Appointment Type:URO Office Visit Diagnostic Tests Pending * Creatinine 10/04/22 [facility] evaluation + Plan note Future Appointments Appointment Date:07/10/2024 02:00:00 PM Scheduled Provider:XIMENA SCALES PA-C Location:[facility] Appointment Type:URO Office Visit [facility] evalfjnseb noteNo assessment information available [facility] Work Phone: Hisxia[facility] general Narrative - Reported* Type Description Date Medical History kidney stones Surgical History C section Surgical History appendectomy Surgical History cholecystectomy Surgical History hernia repair Surgical History lithotripsy Surgical History wisdom teeth extract Hospitalization History see above [employer] Other [facility] general Narrative - Reported* Type Description Date Medical History kidney stones Medical History anxiety Medical History migraine headache Surgical History C section Surgical History appendectomy Surgical History cholecystectomy Surgical History hernia repair Surgical History lithotripsy Surgical History wisdom teeth extract Hospitalization History see above [employer] Other Hospital course Narrative No data available for this section [facility] progress note No data available for this section [facility] Summary Purpose Family History No Family History Records FoundNo Family History Records FoundNo Family History Records Found No data available for this section No Family History Records FoundNo Family History Records Found Advance Directives No Advanced Directives Records FoundNo Advanced Directives Records FoundNo Advanced Directives Records FoundNo Advanced Directives Records FoundNo Advanced Directives Records Found Additional Source Comments INFORMATION SOURCE (unrecogn ized section and content) DATE CREATED AUTHOR 03/14/2018 [facility] DATE CREATED AUTHOR AUTHOR'S ORGANIZ ATION 01/19/2023 [facility] DATE CREATED AUTHOR AUTHOR'S ORGANIZ ATION 03/19/2023 [facility] DATE CREATED AUTHOR AUTHOR'S ORGANIZ ATION 07/10/2023 [facility] DATE CREATED AUTHOR AUTHOR'S ORGANIZ ATION 09/09/2023 [facility] REASON FOR VISIT (unrecogniz ed section and content) #5 sinus congestion, body ac hes, fatigueB/L EARACHECOUGH, CONGESTIONSWOLLEN, LEFT FOOT BEEN THAT WAY ABOUT 5 DAYS, NO INJURY Patient Care team informatio n (unrecognized section and content) Team Status: Inactive Member Role Status Dates Leana Soler , SOCK LINER Attending Provider Active Goals (unrecognized section and content) Goals may be documented in a n alternate section FOR RECORDS PERTAINING TO PATIENTS WHO ARE OR HAVE BEEN ENROLLED IN A CHEMICAL DEPENDENCY/SUBSTANCEABUSE PROGRAM, SOME INFORMATION MAY BE OMITTED. This clinical summary was aggregated from multiple sources. Caution should be exercised in using it in the provision of clinical care. This summary normalizes information from multiple sources, and as a consequence, information in this document may materially change the coding, format and clinical context of patient data. In addition, data may be omitted in some cases. CLINICAL DECISIONS SHOULD BE BASED ON THE PRIMARY CLINICAL RECORDS. [facility] [employer] [facility]. provides no warranty or guarantee of the accuracy or completeness of information in this document.
--- NOTE | 2023-09-22 17:12 | US_ITS ---
The [address] [address] Patient Name: LUL BRITTON MRN: [id number] date: 1985 Sex: F Assigned Patient Location: US Current Patient Location: US Accession/Order Number: [id number] Exam Date: 09/22/2023 18:00 Report Date: 09/22/2023 19:29 At the request of: CHARLOTTE SCALES Procedure: US renal BI EXAM: US renal BI HISTORY: N20.0 KIDNEY STONE COMPARISON: None available. TECHNIQUE: Ultrasound examination of the kidneys and urinary bladder was performed. FINDINGS: RIGHT: The right kidney is normal in size. Right kidney measures 11.6 cm in length. Slight cortical thinning, cortex measures 8 mm in thickness. There is no significant hydronephrosis. Multiple echogenic foci with twinkle artifact suggesting nonobstructing kidney stones, largest measuring 10 mm in the right mid kidney. No focal renal mass. 2.7 x 1.9 x 2.4 cm right mid kidney parapelvic cyst versus right pelviectasis. LEFT: The left kidney is normal in size. Left kidney measures 11.7 cm in length. No significant cortical thinning. There is no hydronephrosis. Multiple echogenic foci with twinkle artifact suggesting nonobstructing kidney stones, largest measuring 5 mm. No focal renal mass. 0.8 x 0.9 x 1.3 cm left upper pole kidney cyst. BLADDER: Unremarkable. No bladder stones seen. No right UVJ stone visualized by extraction machine operator. US/US renal BI IMPRESSION: 1. Multiple nonobstructing bilateral kidney stones measuring up to 10 mm on the right and 5 mm on the left. 2. Disability Coordinator did not comment about hydronephrosis. 2.7 cm right mid kidney parapelvic cyst versus right pelviectasis. No significant right calyceal dilatation. No left hydronephrosis. 3. 1.3 cm left upper pole kidney cyst. 4. Slight right kidney cortical thinning. Electronically authenticated by: RUKHSANA RODRIGEZ Date: 09/22/2023 19:29
--- NOTE | 2023-09-22 17:12 | XR_ITS ---
The [address] [address] Patient Name: LUL BRITTON MRN: [id number] date: 1985 Sex: F Assigned Patient Location: US Current Patient Location: US Accession/Order Number: [id number] Exam Date: 09/22/2023 17:14 Report Date: 09/22/2023 19:31 At the request of: CHARLOTTE SCALES Procedure: XR abdomen 1V IMAGES REVIEWED: XR abdomen 1V COMPARISON: 10/02/2022. CLINICAL INDICATION: N20.0 KIDNEY STONE FINDINGS/IMPRESSION: On the prior x-ray from 10/02/2022 there was an approximately 7 mm calcific density overlying expected location of the right kidney which is no longer seen on today's x-ray. On today's x-ray there is an approximately 7 mm calcific density overlying the right pelvis near the expected location of the right UVJ which was not seen on prior KUBs and raises concern for migration of previously seen right kidney stone through the right distal ureter, now possibly situated in the right UVJ region. This could be better delineated with CT if clinically indicated. Multiple bilateral nonobstructing kidney stones measuring up to 1 cm on the right better seen on same-day ultrasound. Electronically authenticated by: RUKHSANA RODRIGEZ Date: 09/22/2023 19:31
== END 2023-09-22 17:03 | disposition home or self-care (01) ==
PROVIDERS: PCP Family Medicine; Visit Provider Physician Assistant
DX: N20.0 Calculus of kidney (principal); N13.30 Unspecified hydronephrosis; N28.1 Cyst of kidney, acquired
CPT/HCPCS: 74018; 76775

== ENCOUNTER 2023-12-21 15:17 | Outpatient (OUT) | payer OTHER, SELFPAY ==
--- NOTE | 2023-12-21 15:42 | PM.CN ---
Consult Note: HPI Data of Consult Patient: known to practice within the last 3 years Consult date: 08/15/23 Requesting Physician: Charmaine Yates NP Primary Care Provider: Kirby Delong MD Consult Narrative Reason for consult: Midback, neck, right shoulder pain Narrative: 38yof who presents for evaluation. Worsening midback, neck, right shoulder pain. Ongoing for 1+ year. Completed physical therapy x6 weeks, with minimal benefit. Continues in provider directed home exercises >3x/week for >6 weeks, with minimal benefit. Tried muscle relaxers, with minimal benefit. XR reviewed, which is significant for cervical and thoracic spondylosis. Denies adverse med side effects. Patient reports 90% immediate relief and functional improvement for a few hours, and ongoing relief, after bilateral T10-11 T11-12 facet medial branch block #1. Today pain is 3/10 in right upper thoracic and shoulder, ache, sore, varies-tight . Pain increases with 8/10 with lifting and activity. cc:: CC: Charmaine Yates NP Review of Systems ROS Status of ROS 10 or more systems reviewed and unremarkable except as noted in history and below Musculoskeletal Reports: back pain, neck pain and extremity pain Meds Home Medications and Allergies Home Medications ?Medication ?Instructions ?Recorded ?Confirmed ?Type dextroamphetamine-amphetamine 20 20 mg PO DAILY 08/15/23 09/05/23 History mg tablet (Adderall) etodolac 400 mg tablet (Lodine) 400 mg PO BID 08/15/23 09/05/23 History paroxetine HCl 20 mg tablet (Paxil) 20 mg PO DAILY 08/15/23 09/05/23 History topiramate 25 mg tablet (Topamax) 25 mg PO BID 08/15/23 09/05/23 History baclofen 10 mg tablet 10 mg PO DAILY 09/14/23 09/14/23 History Allergies Allergy/AdvReac Type Severity Reaction Status Date / Time Penicillins Allergy Verified 09/05/23 07:48 Exam Narrative Exam Narrative: Psych-alert and oriented x 3.? Attentive and appropriate, constitutionally normal, displays normal mood and affect per situation.? There are no obvious deficits in memory, reasoning, or intellect.? Skin-no obvious rashes, bruising, or erythema noted to the patient's area of pain. Extremities-upper extremities are warm with minimal edema and palpable pulses. Cervical- tenderness to palpation noted in the cervical paraspinal musculature.? Pain is elicited with extension, and lateral rotation of the cervical spine.? Range of motion is slightly diminished due to pain. Facet loading maneuvers are positive bilaterally.? Thoracic- tenderness to palpation noted in paraspinal musculature. Pain elicited with flexion, lateral rotation. Coordination remains intact.? Gait remains non-antalgic. Constitutional Documenting provider has reviewed patient's vital signs: yes Common normals: no apparent distress, oriented x3, healthy appearing, alert and well nourished General appearance: cooperative [facility] Common normals: normocephalic, hearing grossly normal bilaterally and moist oral mucous membranes Head and scalp: normocephalic Eye Common normals: PERRL Pupil: PERRL Neck & C-Spine Common normals: full ROM General: normal visual inspection Other: negative facet loading negative radiculopathy Chest Common normals: inspection of chest normal Respiratory Common normals: normal respiratory effort, no retractions and no use of accessory muscles Back & Pelvis Other: negative facet loading Extremity Common normals: normal to inspection and full ROM Other: pain across right suprascapular and axillary nerve Neuro Common normals: oriented x3, CN's II-XII intact bilaterally, moves all extremities, no focal motor deficits, no sensory deficits noted, deep tendon reflexes 2+ bilaterally and gait normal Sensorium/orientation: alert Motor exam: strength 5/5 throughout and no movement abnormalities noted Psych Common normals: mental status grossly normal, thought process normal, cooperative, affect normal, speech normal and activity/motor behavior normal Speech: normal speech Thought process: normal thought process Assessment and Plan Assessment and Plan (1) Myofascial pain: (2) Right shoulder pain: Assessment and Plan: xray reviewed, no concerning findings pt declining right suprascapular/axillary nerve block working towards RFA (3) Cervical spondylosis: (4) Thoracic spondylosis: Plan continue current medications, tolerating well without side effects f/u 3 months, sooner if needed
== END 2023-12-21 15:18 | disposition home or self-care (01) ==
LOC: PM 15:17
PROVIDERS: PCP Family Medicine; Visit Provider Nurse Practitioner
DX: M79.18 Myalgia, other site (principal); M25.511 Pain in right shoulder; M47.812 Spondylosis without myelopathy or radiculopathy, cervical region; M47.814 Spondylosis without myelopathy or radiculopathy, thoracic region
CPT/HCPCS: G0463

== ENCOUNTER 2024-03-29 15:11 | Outpatient (OUT) | payer OTHER, SELFPAY ==
--- NOTE | 2024-03-29 15:31 | P.CN_ITS ---
Consult Note: HPI Data of Consult Patient: known to practice within the last 3 years Consult date: 08/15/23 Requesting Physician: Charmaine Yates NP Primary Care Provider: Kirby Delong MD Consult Narrative Reason for consult: Midback, neck, right shoulder pain Narrative: 38yof who presents for evaluation. Worsening midback, neck, right shoulder pain. Ongoing for 1+ year. Completed physical therapy x6 weeks, with minimal benefit. Continues in provider directed home exercises >3x/week for >6 weeks, with minimal benefit. Tried muscle relaxers, with minimal benefit. XR reviewed, which is significant for cervical and thoracic spondylosis. Denies adverse med side effects. Patient reports 90% immediate relief and functional improvement for a few hours, and ongoing relief, after bilateral T10-11 T11-12 facet medial branch block #1. Today pain is 5-6/10 in right upper thoracic and shoulder, ache, sore, varies-tight . Pain increases with 8/10 with lifting and activity. cc:: CC: Charmaine Yates NP Review of Systems 2 ROS Status of ROS 10 or more systems reviewed and unremark able except as noted in history and below Musculoskeletal Reports: back pain Meds Home Medications and Allergies Home Medications ?Medication ?Instructions ?Recorded ?Confirmed ?Type dextroamphetamine-amphetamine 20 20 mg PO DAILY 08/15/23 09/05/23 History mg tablet (Adderall) etodolac 400 mg tablet (Lodine) 400 mg PO BID 08/15/23 09/05/23 History paroxetine HCl 20 mg tablet (Paxil) 20 mg PO DAILY 08/15/23 09/05/23 History topiramate 25 mg tablet (Topamax) 25 mg PO BID 08/15/23 09/05/23 History baclofen 10 mg tablet 10 mg PO DAILY 09/14/23 09/14/23 History Allergies Allergy/AdvReac Type Severity Reaction Status Date / Time Penicillins Allergy Verified 09/05/23 07:48 Exam Narrative Exam Narrative: Psych-alert and oriented x 3.? Attentive and appropriate, constitutionally normal, displays normal mood and affect per situation.? There are no obvious deficits in memory, reasoning, or intellect.? Skin-no obvious rashes, bruising, or erythema noted to the patient's area of pain. Extremities-upper extremities are warm with minimal edema and palpable pulses. Cervical- tenderness to palpation noted in the cervical spine and paraspinal musculature.? Pain is elicited with extension, and lateral rotation of the cervical spine.? Range of motion is slightly diminished due to pain. Facet loading maneuvers are positive bilaterally.? Thoracic- tenderness to palpation noted in thoracic spine and paraspinal musculature. Pain elicited with flexion, lateral rotation. Coordination remains intact.? Gait remains non-antalgic. Constitutional Documenting provider has reviewed patient's vital signs: yes Common normals: no apparent distress, oriented x3, healthy appearing, alert and well nourished General appearance: cooperative HENMT Common normals: normocephalic, hearing grossly normal bilaterally and moist oral mucous membranes Head and scalp: normocephalic Eye Common normals: PERRL Pupil: PERRL Neck & C-Spine Common normals: full ROM General: normal visual inspection Chest Common normals: inspection of chest normal Respiratory Common normals: normal respiratory effort, no retractions and no use of accessory muscles Neuro Common normals: oriented x3, CN's II-XII intact bilaterally, moves all extremities, no focal motor deficits, no sensory deficits noted and deep tendon reflexes 2+ bilaterally Sensorium/orientation: alert Motor exam: strength 5/5 throughout and no movement abnormalities noted Psych Common normals: mental status grossly normal, thought process normal, cooperative, affect normal, speech normal and activity/motor behavior normal Speech: normal speech Thought process: normal thought process Results Additional Findings Additional findings: If on a controlled substance or opioids, I have checked an [facility] report on this patient and there are no aberrancies noted in the prescribing history.??If on a controlled substance or opioid a drug screen was completed and reviewed within the last year, and if there has not been a drug screen completed we ordered one today to monitor higher risk, state monitored pain medication use. As part of providing excellent, safe, comprehensive care, the following was completed at our patient's visit: 1. A medication reconciliation and review to ensure accurate knowledge of current/active medications, including asking our patients to inform us about any [id number] medications or herbal remedies/nutritional supplements/alternative remedies. 2. A review to specifically ensure our patients have had annual screening for screening for depression, screening for tobacco use, and screening for unhealthy alcohol use. For concerning screenings had a discussion with the patient, provided patient education, and recommended follow-up with primary care provider when appropriate. If patient noted with a risk of falling, they received education on strength, gait, and balance training to prevent future risk of falling. Assessment and Plan Assessment and Plan (1) Thoracic spondylosis: (2) Cervical spondylosis: (3) Right shoulder pain: Plan bilateral T10-11 T11-12 MBB #2 working towards RFA continue current medications tolerating well without side effects f/u after procedure
== END 2024-03-29 15:12 | disposition home or self-care (01) ==
LOC: PM 15:11
PROVIDERS: PCP Family Medicine; Visit Provider Nurse Practitioner
DX: M47.816 Spondylosis without myelopathy or radiculopathy, lumbar region (principal); M47.812 Spondylosis without myelopathy or radiculopathy, cervical region; M25.511 Pain in right shoulder
CPT/HCPCS: G0463

== ENCOUNTER 2024-04-16 09:49 | Day surgery (SDC) | payer OTHER, SELFPAY ==
--- OUTSIDE RECORDS SUMMARY | 2024-04-16 09:57 | XMS_ITS | CCD ---
Author Organization [facility] Care Team Providers Care Online Marketer Name Role Phone WINSOME, MINGO S Unavailable Unavailable BETANCUR, MAYE P Unavailable Unavailable WINSOME, MINGO S Unavailable Unavailable BETANCUR, MAYE P Unavailable Unavailable SaraJennyfer Unavailable Jessenia Ortiz Unavailable ABDOUL ALBERTO Primary Care Physician CHAN ., DR CASTILLO Admitting Unavailable CHAN ., DR CASTILLO Consulting Unavailable CHAN ., DR CASTILLO Attending Unavailable NADERER, DR ABDOUL Ayala Primary Care Unavailable NADERER, DR ABDOUL Ayala Consulting Unavailable NADERER, DR ABDOUL Ayala Attending Unavailable NADERER, DR ABDOUL Ayala Admitting Unavailable NADERER, DR ABDOUL Ayala Primary Care Unavailable NADERER, DR ABDOUL Ayala Attending Unavailable NADERER, DR ABDOUL Ayala Admitting Unavailable WEST, DR RIC Diaz Consulting Unavailable NADERER, DR ABDOUL Ayala Primary Care Unavailable NADERER, DR ABDOUL Ayala Consulting Unavailable NADERER, DR ABDOUL Ayala Primary Care Unavailable CHAN ., DR CASTILLO Attending Unavailable CHAN ., DR CASTILLO Admitting Unavailable CHAN ., DR CASTILLO Consulting Unavailable WEST, DR RIC Diaz Consulting Unavailable CHAN ., DR CASTILLO Attending Unavailable CHAN ., DR CASTILLO Admitting Unavailable CHAN ., DR CASTILLO Consulting Unavailable NADERER, DR ABDOUL Ayala Primary Care Unavailable WEST, DR RIC Diaz Consulting Unavailable WEST, DR RIC Diaz Consulting Unavailable NADERER, DR ABDOUL Ayala Primary Care Unavailable NADERESalomón, DR ABDOUL Ayala Attending Unavailable NADERER, DR ABDOUL Ayala Admitting Unavailable NADERER, DR ABDOUL Ayala Consulting Unavailable NADERER, DR ABDOUL Ayala Primary Care Unavailable NADERER, DR ABDOUL Ayala Consulting Unavailable NADERER, DR ABDOUL Ayala Attending Unavailable NADERER, DR ABDOUL Ayala Admitting Unavailable KARASIK ., DR CHAVEZ [...] DR CHAVEZ Consulting Unavailabl e NADERER, DR ABDOUL Ayala Primary Care Unavailable NADERER, DR ABDOUL Ayala Attending Unavailable NADERER, DR ABDOUL Ayala Admitting Unavailable Leana Soler Unavailable KEN Soler Attending Provider Leana Soler Attending Unavailable Leana Soelr Admitting Unavailable NO FAMILY, PHYSICIAN Primary Care Unavailable Nisha JOHNSTON, Joanne Olivarse Attending Unavailable Nisha JOHNSTON, Joanne Olivares Attending Unavailable Elisabeth Ma Unavailable COCO NEGRETERUS C Attending Unavailable CADEN GIAN C Admitting Unavailable GIAN NEGRETE C Attending Unavailable NADERER, ABDOUL Attending Unavailable NADERER, ABDOUL Attending Unavailable TIMMIS, LIN H Attending Unavailable NADERERABDOUL Referring Unavailable TIMMIS, LIN H Attending Unavailable NADERER, ABDOUL Attending Unavailable YORDY, XIMENA E Attending Unavailable YORDY, XIMENA E Attending Unavailable Timmis, Lin H Referring Unavailable Timmis, Lin H Attending Unavailable Timmis, Lin H Admitting Unavailable Allergies Allergy Classification Reported Allergen(s) Allergy Type Date of Onset Reaction(s) Facility Penicillins (antibiotic) (1 source) Penicillin G; Translations: [penicillin G benzathine] Drug Allergy Eruption of skin (disorder) [facility] (8 sources) Penicillin G Benzathine; Translations: [Penicillin G] Drug allergy rash, Eruption of skin (disorder) [facility] (1 source) Penicillin Drug Allergy [facility] Repository (2 sources) Penicillins; Translations: [PENICILLINS] Propensity to adverse reactions to drug (disorder) 4 [facility] 3 Repository Medications Current Medications Medication Drug Class(es) Dates Sig (Normalized) Sig (Original) acetaminophen 500 mg oral tablet (1 source) take 1 tablet by mouth every six hours Tylenol Extra Strength 500 MG 1 tablet as needed Orally every 6 hrs Active Amphetamine / Dextroamphetamine (1 source) Central Nervous System Stimulant Adderall Active cetirizine hydrochloride 10 mg oral tablet (2 sources) Histamine-1 Receptor Antagonist take 1 tablet by mouth every twenty-four hours ZyrTEC Allergy 10 MG 1 tablet Orally [...] Apr, Active montelukast 10 mg oral tablet (2 sources) Leukotriene Receptor Antagonist Start: 3 montelukast 10 mg Tab Refills(s) 0 Start Date: 02/08/23 Status: Ordered PARoxetine hydrochloride 20 mg oral tablet (6 sources) Serotonin Reuptake Inhibitor Start: 3 take 1 mg by mouth once daily Paxil 20 mg Tab mg tab(s), Oral, Daily, Refills(s) 0 Start Date: 10/04/22 Status: Ordered Paxil Active topiramate 25 mg oral tablet (6 sources) Start: 10-04-2022 take 1 mg by mouth twice daily Topamax 25 mg Tab mg tab(s), Oral, BID, Refills(s) 0 Start Date: 10/04/22 Status: Ordered Topamax Active Tylenol Extra Strength 500 MG (3 sources) take 1 tablet by mouth every six hours as needed Tylenol Extra Strength 500 MG 1 tablet as needed Orally every 6 hrs Active Vitamin D (3 sources) Vitamin D Active Vitamin D3 2000 intl units oral tablet (3 sources) Start: 10-04-2022 Vitamin D3 2000 intl units oral tablet Refills(s) 0 Start Date: 10/04/22 Status: Ordered Completed/Discontinued Medications Medication Drug Class(es) Dates Sig (Normalized) Sig (Original) acetaminophen 250 mg / aspirin 250 mg / caffeine 65 mg oral tablet (4 sources) Platelet Aggregation Inhibitor, Nonsteroidal Anti-inflammatory Drug, Central Nervous System Stimulant, Methylxanthine take 2 tablets by mouth every twenty-four hours Excedrin Migraine 250-250-65 MG 2 tablets Orally Once a day Not-Taking/PRN [id number] 60 actuat albuterol 0.09 mg/actuat metered dose inhaler (3 sources) beta2-Adrenergic Agonist Start: 09-01-2022 take 2 puff(s) by inhalation four times daily as needed Albuterol Sulfate HFA 108 (90 Base) MCG/ACT 2 puffs Inhalation 4 times a day prn Aug, Not-Taking/PRN Start: 09-01-2022 take 2 puff(s) by in halation four times daily as needed Albuterol Sulfate HFA 108 (90 Base) MCG/ACT 2 puffs Inhalation 4 times a day prn Aug, Not-Taking hydroCHLOROthiazide (3 sources) Thiazide Diuretic hydroCHLOROthi azide Not-Taking/PRN hydroCHLOROthiaz hua Not-Taking hydroCHLOROthiaz hua Active polymyxin b 57672 unt/ml / trimethoprim 1 mg/ml ophthalmic solution (1 source) Dihydrofolate Reductase Inhibitor Antibacterial, Polymyxin-class Antibacterial Start: 02-01-2023 take 1 drop(s) into the eye(s) every three hours Polytrim 14060-8.1 UNIT/ML 1 drop into affected eye Ophthalmic every 3 hours while awake for 7 January, Not-Taking Polytrim 33089-4.1 UNIT/ML (1 source) Start: 02-01-2023 take 1 drop(s) into the eye(s) every three hours as needed Polytrim 92840-7.1 UNIT/ML 1 drop into affected eye Ophthalmic every 3 hours while awake for 7 January, Not-Taking/PRN predniSONE 20 mg oral tablet (5 sources) Start: 03-06-2023 predniSONE 20 MG Take 3 tabs daily x 3 days, then take 2 tabs daily x 3 days, then take 1 tab daily x 3 days. Orally Once a day for 9 days Feb, Not-Taking/PRN Start: 09-01-2022 take 1 tablet by herson th every twelve hours predniSONE 20 MG 1 tablet Orally 2 times a day for 5 day(s) Aug, Not-Taking/PRN Problems Active Problems Problem Classification Problem Date Documented Da te Episodic/Chronic Abdominal pain (8 sources) Unspecified abdominal pain; Translations: [Pelvic and perineal pain] Onset: 10-30-2022 Episodic Calculus of urinary tract (18 sources) Calculus of kidney; Translations: [Kidney stone] Onset: 07-08-2017 Episodic Genitourinary symptoms and ill-defined conditions (1 source) Dysuria Episodic Gout and other crystal arthropathies (3 sources) Gouty arthritis of left foot; Translations: [Gout, unspecified] Chronic Heart valve disorders (3 sources) Heart murmur 10-04-2022 Episodic Nonspecific chest pain (4 sources) Chest pain, unspecified; Translations: [CHEST PAIN UNSPECIFIED] Onset: 11-17-2022 Episodic Other acquired deformities (2 sources) Acquired deformity of nose; 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] Onset: 03-20-2024 Episodic Other connective tissue disease (1 source) Pain in right arm; Translations: [PAIN IN RIGHT ARM] Onset: 11-03-2022 Episodic Other connective tissue disease (1 source) Pain in left foot Episodic Other injuries and conditions due to external causes (1 source) History of falling; Translations: [HISTORY OF FALLING] Onset: 11-05-2022 Episodic Other upper respiratory disease (3 sources) Deviated nasal septum; Translations: [Deviated nasal septum] Onset: 03-15-2024 Episodic Other upper respiratory disease (1 source) Deviated nasal septum; Translations: [Deviated nasal septum] Onset: 03-20-2024 Episodic Other upper respiratory disease (2 sources) Nasal congestion; Translations: [Nasal congestion] Onset: 03-20-2024 Episodic Other upper respiratory disease (2 sources) Hypertrophy of nasal turbinates; Translations: [Hypertrophy of nasal turbinates] Onset: 03-20-2024 Episodic Other upper respiratory infections (1 source) [...] Translations: [Pain in left foot] Onset: 03-06-2023 Unclassified (2 sources) New Patient Visit; Translations: [New Patient Visit] Onset: 03-15-2024 Past or Other Problems Problem Classification Problem [...] genital organs; Translations: [FAM HX MALIG NEOPLSM OTH GENIT ORGN] Onset: 06-25-2022 Episodic Unclassified (1 source) Contact with and (suspected) exposure to covid-19 Z20.822 Viral infection (1 source) COVID-19 Onset: 07-22-2021 Resolved: 07-22-2021 Results Test Name Value Interpretation Reference Range Facility CT Maxillofacial w/o Contras ton 02-21-2024 CT Maxillofacial w/o Contrast Exam Date/Time: 02/17/2024 11:41 EDT Reason for Exam: J32.4 Chronic frontal sinusitis Report IMPRESSION: PARANASAL SINUSES APPEAR CLEAR. Exam: CT Maxillofacial w/o Contrast History: Sinusitis Technique: Multiple contiguous axial images were obtained of the maxillofacial bones without contrast. Multiplanar reformats were obtained. Comparison: None available Findings: Maxillary Sinuses: Clear. Ethmoid sinuses: Clear. Sphenoid sinuses: Clear. There is sphenoid pneumatization that extends inferior and posterior to the sella, resulting in a thin posterior bony margin of the clivus, consistent with sellar type pneumatization. Frontal sinuses: Clear. Right sphenoethmoidal recess: Clear. Left sphenoethmoidal recess: Clear. Right ostiomeatal complex and frontal recess: Clear. Left ostiomeatal complex and frontal recess: Clear. Nasal septum: Minimally deviated right. Other: Keros type 2 olfactory fossa on the left and type III on the right. Tiny bilateral Onodi cells. Small right Camilo cell. Mastoid air cells & middle ears: Clear. The middle ears are unremarkable. Soft tissues & Brain: No acute abnormality identified. Orbital contents are within normal limits. Report All CT scans at this facility use dose modulation, iterative reconstruction, and/or weight based dosing when appropriate to reduce radiation dose to as low as reasonably achievable. Ordering Provider: Lin Walter FINAL REPORT Dictated: 02/21/2024 2:24 pm Fidel Diamond DO Signed (Electronic Signature): 02/21/2024 2:24 pm Signed by: Fidel Diamond DO Transcribed by: ADILENE Technologist: GALLO Roe [facility] Consent for Treatmenton 01-19 Consent for Treatment [id number] 0TIFF Normal [facility] Physician Orderon 01-26-2024 Physician Order [id number]#1.0 0TIFF Normal [facility] RAD - MISCon 09-23-2023 RAD - MISC [id number] 0TIFF Normal [facility] RAD - Ultrasound Reporton RAD - Ultrasound Report [id number] 0TIFF [facility] Urinalysis - AUTOMATEDon Appearance (U) clear [employer] Other Bilirubin Ql (U) Negative [employer] Other Color (U) yellow [employer] Other Glucose Ql (U) Negative [employer] Other Hemoglobin Ql (U) small [employer] Other Ketones Ql (U) Negative [employer] Other Leukocyte esterase Test strip Ql (U) Negative [employer] Other Nitrite Ql (U) Negative [employer] Other pH (U) 7.0 [pH] [employer] Other Protein Ql (U) Negative [employer] Other Specific gravity (U) [Rel density] 1.025 [employer] Other Urobilinogen (U) [Mass/Vol] 0.2 mg/dL [facility] Other Urinalysis - AUTOMATED [employer] Other RAD - MISCon 07-08-2023 RAD - MISC [id number]#1.0 0TIFF [facility] Screenson 07-06-2023 Screens [id number]#1.0 0TIFF [facility] Ambulatory Visit Summaryon 1 Ambulatory Visit Summary WALLYLUL Humphries :1985 Visit Date:07/05/2023 Ambulatory Visit Instructions Your Diagnosis Kidney stones Flank pain History of kidney stones Tests Performed Urnls Dip Stick Auto w/o Microscopy POC [id number] US Renal -- Results Pending -- XR Abdomen 1 View -- Results Pending -- Please visit your patient portal for your results or contact your primary care physician. Your Care Team Attending Physician - XIMENA SCALES PA-C Primary Care Physician - ABDOUL ALBERTO MD This Is Your Medications List [...] XIMENA SCALES PA-C Where: [facility] Reminderson 07-05-2023 Reminders - From: Ailin Dubose To: [facility] - Janet Scales; Sent: 07/05/2023 15:50:31 EDT Show up: 06/19/2024 15:50:00 EDT Subject: KUB and QING prior to appt Reminder Message Please Remember to:_have pt complete KUB and QING prior to appt. Prefers [facility]. [facility] Urology Office/Clinic Noteon 07-05-2023 Urology Office/Clinic Note [...] stones since age 20. Previously treated in [place]. S/P Lithotripsy in 2017. Hx of 8 [...] Contact Information YORDY WILLSON, XIMENA Lam, URL [address] [place] [address] [phone] Additional Instructions: 1 yr w/ BOGDAN and QING Patient Education Dietary Guidelines to Help Prevent Kidney Stones Documentation recorded by the scribkristin Dubose accurately reflects the services(s) I performed [...] Protein Urine Dipstick: Negative (07/05/23 15:24:00) Specific Yantis Urine Dipstick: <=1.005 (07/05/23 15:24:00) Urine Appearance Urine Dipst (more content not included)... [facility] Comment on above: Result Comment: Elec tronically Signed By: XIMENA SCALES PA-C\.br\Date and Time Signed: 07/05/23 16:45 EDT\.br\Electronically Co-Signed By: Ailin Dubose\.br\Date and Time Co-Signed: 07/05/23 15:48 EDT RAD - MISMemetales 06-30-2023 RAD - MISClariture [id number]#1.0 0TIFF [facility] Patient Educationon 06-13-20 Patient Education Nephrology Dietary [...] ? 8 oz (237 mL) of milk, qjtxxni-ozvnxngjunny-b airy milk, and calcium-fortifiedfruit juice. Calcium-fortified means [...] Spinach (cooked), rhubarb, beets, sweet potatoes, and Micronesian chard. ? Peanuts. ? Potato chips, kyrgyz fries, and baked potatoes with skin on. ? Nuts and nut products. ? Chocolate. ? If you regularly take a diuretic medicine, make sure to eat at least 1 or 2 servings of fruits or vegetables that are high in potassium each day. These include: ? Avocado. ? Banana. ? Boyd, prune, carrot, or tomato juice. ? Baked [...] fish oil, or vitamin B6. ? Take eibq-jwd-leajpwd and prescription medicines only as told by your health care provider. These include supplements. What foods should I limit? Limit your in (more content not included)... Normal [facility] XR foot LT min 3V*on 023 XR foot LT min 3V* [facility] Main [address] [address] XRay Report Signed Patient: Lul Britton MR#: [id number] 6 : 1985 Acct:[id number] Age/Sex: 37 / F ADM Date: 03/06/23 Loc: XDUCLY Room: Type: [facility] Attending Dr: Leana Soler APRN Copies to: [...] Selena Thomson M.D.03/06/2023 2:30 PM Dictation Location: [place] [address] Transcribed By: [facility] 03/06/23 1430 Dictated By: Selena Thomson MD 03/06/23 1429 Signed By: 03/06/23 1430 Normal [facility] XR foot LT min 3V* [facility] [employer] Other XR foot LT min 3V* [facility] Main [facility] [employer] Other XR foot LT min 3V* [address] [place] [address] [employer] Other XR foot LT min 3V* [place] [address] [facility] Other XR foot LT min 3V* XRay Report [facility] Other XR foot LT min 3V* Signed [facility] Other XR foot LT min 3V* Patient: Lul Britton MR#: [id number] [facility] Other XR foot LT min 3V* 6 [facility] Other XR foot LT min 3V* : 1985 Acct:[id number] [facility] Other XR foot LT min 3V* Age/Sex: 37 / F ADM Date: 03/06/23 [facility] Other XR foot LT min 3V* Loc: XDUCLY Room: Type: [facility] Other XR foot LT min 3V* Attending Dr: Leana Soler [facility] [employer] Other XR foot LT min 3V* Copies to: Leana Soler MANUFACTURING MAINTENANCE MANAGER [employer] Other XR foot LT min 3V* Ordering Provider: Leana Soler MANUFACTURING MAINTENANCE MANAGER [facility] Other XR foot LT min 3V* Date of Service: 03/06/23 [facility] Other XR foot LT min 3V* XR/XR foot LT min 3V*: M79.672 [facility] Other XR foot LT min 3V* LEFT FOOT - 3 views [facility] Other XR foot LT min 3V* CLINICAL DATA: Dorsa l foot pain for the past 5 days. No injury [facility] Other XR foot LT min 3V* COMPARISON: None [facility] Other XR foot LT min 3V* AP, lateral and oblique views were obtained. There is no evidence of fracture or dislocation. [facility] Other XR foot LT min 3V* There are posterior and plantar calcaneal spurs. There is soft tissue swelling over the dorsum of [facility] Other XR foot LT min 3V* foot. The soft tissu es of the ankle are also prominent. [facility] Other XR foot LT min 3V* XR/XR foot LT min 3V* [facility] Other XR foot LT min 3V* IMPRESSION: [facility] Other XR foot LT min 3V* NO ACUTE BONY FINDINGS. [facility] Other XR foot LT min 3V* Impression dictated by: Selena Thomson M.D.03/06/2023 2:30 PM [place] [employer] Other XR foot LT min 3V* Dictation Location: [address] [employer] Other XR foot LT min 3V* Transcribed By: PWS 03/06/23 1430 [facility] Other XR foot LT min 3V* Dictated By: Selena Thomson MD 03/06/23 1429 [facility] Other XR foot LT min 3V* Signed By: [facility] Other XR foot LT min 3V* 03/06/23 1430 [facility] [employer] Other CITRATE URINE 24HRon 023 Citric Acid, U, 24hr 410 mg/24 hr Normal 320-1240 [facility] Comment on above: Result Comment: This test was developed and its performance characteristics determined by [employer]. It has not been cleared or approved by the Food and Drug Administration. Performed By: #### O X24HR #### [facility] [address] [address] [address] Neil Krishnamurthy Citric Acid, Urine 200 mg/L Normal Undefined The [facility] Comment on above: Performed By: #### O X24HR #### [facility] [address] [id number] Neil Krishnamurthy OXALATE 24HR URINEon 023 Oxalates, Urine 7 mg/L Normal Undefined The [facility] Comment on above: Performed By: #### O X24HR #### [facility] [address] [address] [address] Neil Krishnamurthy Oxalates, Urine 24hr 14 mg/24 hr Normal 4-31 [facility] Comment on above: Performed By: #### O X24HR #### [facility] [address] [address] [address] Neil Krishnamurthy MAGNESIUM 24HR URINEon 12-07 Magnesium 24hr Urine 116.9 mg/24 hr Normal 12.0-293.0 [facility] Comment on above: Performed By: #### C O2, CL, BUN, CREA, URIC, K, CA, NA #### [facility] [address] [address] [address] Neil Krishnamurthy Magnesium UR 5.7 mg/dL Normal Not Estab. The [facility] Comment on above: Performed By: #### C O2, CL, BUN, CREA, URIC, K, CA, NA #### [facility] [address] [place] [address] Dr. Neil Krishnamurthy PHOSPHORUS 24HR URINEon 11-18 Phosphorus, Urine 56.6 mg/dL Normal Not Estab. The [facility] Comment on above: Performed By: #### O X24HR #### [facility] [address] [place] [address] Dr. Neil Krishnamurthy Phosphorus, Urine 24hr 1160 mg/24 hr Critically high 261-1078 [facility] Comment on above: Performed By: #### O X24HR #### [facility] [address] [place] [address] Dr. Neil Krishnamurthy PTH INTACTon 12-07-2022 PTH, Intact 41 pg/mL Normal 15-65 [facility] Comment on above: Performed By: #### O X24HR #### [facility] [address] [place] [address] Dr. Neil Krishnamurthy URIC ACID 24 HR URINEon 11-18 Uric Acid, Urine 23.4 mg/dL Normal Not Estab. The [facility] Comment on above: Performed By: #### O X24HR #### [facility] [address] [place] [address] Dr. Neil Krishnamurthy Uric Acid, Urine 24hr 479.7 mg/24 hr Normal 173.7-902.1 [facility] Comment on above: Performed By: #### O X24HR #### [facility] [address] [place] [address] Dr. Neil Krishnamurthy BUNon 12-06-2022 Urea nitrogen [Mass/Vol] 12.0 mg/dL Normal 7.0-18.0 [facility] Comment on above: Performed By: #### C O2, CL, BUN, CREA, URIC, K, CA, NA #### [facility] [address] [place] [address] Dr. Neil Krishnamurthy CALCIUMon 12-06-2022 Calcium [Mass/Vol] 8.6 mg/dL Normal 8.5-10.1 [facility] Comment on above: Performed By: #### O X24HR #### [facility] [address] [place] [address] Dr. Neil Krishnamurthy CALCIUM 24 HR URINEon 2022 CALC, 24 HR UR 479.7 mg/24 hr Critically high 100.0-300.0 [facility] Comment on above: Performed By: #### V AGINT #### [facility] [address] [place] [address] Dr. Neil Krishnamurthy UR CALCIUM 23.4 mg/dL Critically high 5.1-21.0 [facility] Comment on above: Performed By: #### V AGINT #### [facility] [address] [place] [address] Dr. Neil Krishnamurthy UR TOT VOL 2050 ml/24 HR Normal The [facility] Comment on above: Performed By: #### V AGINT #### [facility] [address] [place] [address] Dr. Neil Krishnamurthy Performed By: #### C O2, CL, BUN, CREA, URIC, K, CA, NA #### [facility] [address] [place] [address] Dr. Neil Krishnamurthy CHLORIDEon 12-06-2022 Chloride [Moles/Vol] 106 mmol/L Normal 98-107 [facility] Comment on above: Performed By: #### C O2, CL, BUN, CREA, URIC, K, CA, NA #### [facility] [address] [place] [address] Dr. Neil Krishnamurthy CO2on 12-06-2022 CO2 [Moles/Vol] 25.7 mmol/L Normal 21.0-32.0 [facility] Comment on above: Performed By: #### C O2, CL, BUN, CREA, URIC, K, CA, NA #### [facility] [address] [place] [address] Dr. Neil Krishnamurthy CREA 24 HR URINEon CREA, 24 HR UR 1371.04 mg/24 hr Normal 800.00-1, 800. 00 [facility] Comment on above: Performed By: #### C O2, CL, BUN, CREA, URIC, K, CA, NA #### [facility] [address] [place] [address] Dr. Neil Krishnamurthy URINE CREAT 66.88 mg/dL Normal 20.00-300.00 [facility] Comment on above: Performed By: #### C O2, CL, BUN, CREA, URIC, K, CA, NA #### [facility] [address] [place] [address] Dr. Neil Krishnamurthy CREATININEon 12-06-2022 Creatinine [Mass/Vol] 0.78 mg/dL Normal 0.55-1.02 [facility] Comment on above: Performed By: #### C O2, CL, BUN, CREA, URIC, K, CA, NA #### [facility] [address] [place] [address] Dr. Neil Krishnamurthy EGFR-AF SOMALI >60 Normal >=60 [facility] Comment on above: Performed By: #### C O2, CL, BUN, CREA, URIC, K, CA, NA #### [facility] [address] [place] [address] Dr. Neil Krishnamurthy EGFR-NON AF SOMALI >60 Normal >=60 [facility] Comment on above: Performed By: #### C O2, CL, BUN, CREA, URIC, K, CA, NA #### [facility] [address] [address] [address] Neil Krishnamurthy NAon 12-06-2022 Sodium [Moles/Vol] 139 mmol/L Normal 136-145 [facility] Comment on above: Performed By: #### C O2, CL, BUN, CREA, URIC, K, CA, NA #### [facility] [address] [place] [address] Dr. Neil Krishnamurthy POTASSIUMon 12-06-2022 Potassium [Moles/Vol] 4.1 mmol/L Normal 3.5-5.1 [facility] Comment on above: Performed By: #### C O2, CL, BUN, CREA, URIC, K, CA, NA #### [facility] [address] [place] [address] Dr. Neil Krishnamurthy SODIUM 24 HR URINEon 023 NA, 24 HR UR 211 mmol/24 hr Normal 40-220 [facility] Comment on above: Performed By: #### C O2, CL, BUN, CREA, URIC, K, CA, NA #### [facility] [address] [place] [address] Dr. Neil Krihsnamurthy Sodium (U) [Moles/Vol] 103 mmol/L Critically high 30-90 [facility] Comment on above: Performed By: #### C O2, CL, BUN, CREA, URIC, K, CA, NA #### [facility] [address] [place] [address] Dr. Neil Krishnamurthy URIC ACID SERUMon 12-06-2022 Urate [Mass/Vol] 5.0 mg/dL Normal 2.6-6.0 [facility] Comment on above: Performed By: #### C O2, CL, BUN, CREA, URIC, K, CA, NA #### [facility] [address] [place] [address] Dr. Neil Krishnamurthy ECHOCARDIO M/2D COMPLETEon 0 11-17-2022 ECHOCARDIO M/2D COMPLETE Patient: LUL BRITTON Exam Date: 11/17/2022 : 1985 Gender:F Ordering : DR ABDOUL ALBERTO . Admission #: [id number] Family : Order #: [id number] CLICK HERE TO VIEW EXAM ECHOCARDIOGRAM REPORT [...] Onofre M.D. on 11/18/2022 at 09:50 Normal [facility] US PELVIS AND TRANSVAGon US PELVIS AND [...] by: RIC QUEZADA Date: 2022-11-01 07:20 Normal [facility] XR RIBS RT PA Karl XR RIBS [...] by: RIC QUEZADA Date: 2022-11-01 07:12 Normal [facility] XR TSPINE MIN 4 VIEWSon 10-20 XR [...] by: RIC QUEZADA Date: 2022-11-01 07:09 Normal [facility] CREATININEon 10-12-2022 Creatinine [Mass/Vol] 0.91 mg/dL Normal 0.55-1.02 [facility] Comment on above: Performed By: #### O X24HR #### [facility] [address] [place] [address] Dr. Neil Krishnamurthy EGFR-AF SOMALI >60 Normal >=60 [facility] Comment on above: Performed By: #### O X24HR #### [facility] [address] [place] [address] Dr. Neil Krishnamurthy EGFR-NON AF SOMALI >60 Normal >=60 [facility] Comment on above: Performed By: #### O X24HR #### [facility] [address] [place] [address] Dr. Neil Krishnamurthy XR IVPon 10-12-2022 XR IVP EXAMINATION: XR IVP HISTORY: Kidney stone COMPARISON: No relevant comparison available. TECHNIQUE: After obtaining patient consent a brake lining maker image was obtained followed by injection of [...] by: RIC QUEZADA Date: 2022-10-12 09:48 Normal [facility] XR KUB 1 VIEWon 10-05-2022 XR KUB [...] by: RIC QUEZADA Date: 2022-10-05 07:35 Normal [facility] COVID/FLU RT-PCRon 2 SARS-CoV-2 (COVID-19) RNA BRANDIE+probe Ql (Unsp spec) Negative [facility] Other COVID/FLU RT-PCR Negative [employer] Other XR KUB 1 VIEWon 08-30-2022 XR [...] by: RIC QUEZADA Date: 2022-08-30 07:28 Normal [facility] CBC AUTO DIFFon 07-13-2022 BASO # 0.0 103/ul Normal 0.0-0.1 [facility] Comment on above: Performed By: #### V AGINT #### [facility] [address] [address] [address] Neil Krishnamurthy Basophils/100 WBC (Bld) 0.5 % Normal 0.2-2.0 [facility] Comment on above: Performed By: #### V AGINT #### [facility] [address] [place] [address] Dr. Neil Krishnamurthy EO # 0.2 103/ul Normal 0.0-0.7 [facility] Comment on above: Performed By: #### V AGINT #### [facility] [address] [place] [address] Dr. Neil Krishnamurthy Eosinophils/100 WBC (Bld) 1.9 % Normal 0.9-7.0 [facility] Comment on above: Performed By: #### V AGINT #### [facility] [address] [place] [address] Dr. Neil Krishnamurthy Erythrocyte distribution width (RBC) [Ratio] 11.7 % Normal 11.0-15.0 [facility] Comment on above: Performed By: #### V AGINT #### [facility] [address] [place] [address] Dr. Neil Krishnamurthy Hematocrit (Bld) [Volume fraction] 41.1 % Normal 36.0-48.0 [facility] Comment on above: Performed By: #### V AGINT #### [facility] [address] [place] [address] Dr. Neil Krishnamurthy Hemoglobin (Bld) [Mass/Vol] 13.7 g/dL Normal 12.0-16.0 [facility] Comment on above: Performed By: #### V AGINT #### [facility] [address] [place] [address] Dr. Neil Krishnamurthy IG # 0.03 10e3/ul Normal 0.00-0.03 [facility] Comment on above: Performed By: #### V AGINT #### [facility] [address] [place] [address] Dr. Neil Krishnamurthy IG % 0.4 % Normal 0.0-0.5 [facility] Comment on above: Performed By: #### V AGINT #### [facility] [address] [place] [address] Dr. Neil Krishnamurthy LYMPH # 2.8 103/ul Normal 1.2-3.8 [facility] Comment on above: Performed By: #### V AGINT #### [facility] [address] [place] [address] Dr. Neil Krishnamurthy Lymphocytes/100 WBC (Bld) 32.9 % Normal 20.5-60.0 [facility] Comment on above: Performed By: #### V AGINT #### [facility] [address] [place] [address] Dr. Neil Krishnamurthy MANUAL DIFF REQ NO Normal [facility] Comment on above: Performed By: #### V AGINT #### [facility] [address] [place] [address] Dr. Neil Krishnamurthy MCH (RBC) [Entitic mass] 30.4 pg Normal 26.7-34.0 [facility] Comment on above: Performed By: #### V AGINT #### [facility] [address] [place] [address] Dr. Neil Krishnamurthy MCHC (RBC) [Mass/Vol] 33.3 g/dL Normal 29.9-35.2 [facility] Comment on above: Performed By: #### V AGINT #### [facility] [address] [place] [address] Dr. Neil Krishnamurthy MCV (RBC) [Entitic vol] 91.3 fL Normal 81.0-99.0 [facility] Comment on above: Performed By: #### V AGINT #### [facility] [address] [place] [address] Dr. Neil Krishnamurthy MONO # 0.7 103/ul Normal 0.3-0.8 [facility] Comment on above: Performed By: #### V AGINT #### [facility] [address] [place] [address] Dr. Neil Krishnamurthy Monocytes/100 WBC (Bld) 8.0 % Normal 1.7-12.0 [facility] Comment on above: Performed By: #### V AGINT #### [facility] [address] [place] [address] Dr. Neil Krishnamurthy NEUT # 4.8 103/ul Normal 1.4-6.5 [facility] Comment on above: Performed By: #### V AGINT #### [facility] [address] [address] [address] Neil Krishnamurthy Neutrophils/100 WBC (Bld) 56.3 % Normal 43.0-75.0 [facility] Comment on above: Performed By: #### V AGINT #### [facility] [address] [address] [address] Neil Krishnamurthy Platelet mean volume (Bld) [Entitic vol] 11.0 fL Normal 9.5-13.5 [facility] Comment on above: Performed By: #### V AGINT #### [facility] [address] [place] [address] Dr. Neil Krishnamurthy PLT 242 103/ul Normal 150-450 [facility] Comment on above: Performed By: #### V AGINT #### [facility] [address] [place] [address] Dr. Neil Krishnamurthy RBC 4.50 106/ul Normal 4.20-5.40 [facility] Comment on above: Performed By: #### V AGINT #### [facility] [address] [place] [address] Dr. Neil Krishnamurthy WBC 8.5 103/ul Normal 4.0-11.0 [facility] Comment on above: Performed By: #### V AGINT #### [facility] [address] [place] [address] Dr. Neil Krishnamurthy GLYCOHEMOGLOBIN A1Con 2021 ADA RECOMMENDATION SEE BELOW Normal [facility] Comment on above: Result Comment: ADA RECOMMENDED LIMIT 4.0 - 6.0 ADA THERAPEUTIC TARGET < 7.0 ACTION SUGGESTED > 7.0 Performed By: #### V AGINT #### [facility] [address] [place] [address] Dr. Neil Krishnamurthy Glucose [Mass/Vol] 97 mg/dL Normal [facility] Comment on above: Performed By: #### V AGINT #### [facility] [address] [place] [address] Dr. Neil Krishnamurthy HbA1c (Bld) [Mass fraction] 5.0 % Normal 4.5-6.2 [facility] Comment on above: Performed By: #### V AGINT #### [facility] [address] [address] [address] Neil Krishnamurthy LIPID PROFILEon 07-13-2022 CHOL-HDL RATIO NORM SEE BELOW Normal [facility] Comment on above: Result Comment: 3.3 - 4.4 LOW RISK 4.4 - 7.1 AVERAGE RISK 7.1 - 11.0 MODERATE RISK >11.0 HIGH RISK Performed By: #### O X24HR #### [facility] [address] [address] [address] Neil Krishnamurthy Cholesterol [Mass/Vol] 157 mg/dL Normal <=200 [facility] Comment on above: Performed By: #### O X24HR #### [facility] [address] [address] [address] Neil Krishnamurthy Cholesterol in HDL [Mass/Vol] 50 mg/dL Normal 40-60 [facility] Comment on above: Performed By: #### O X24HR #### [facility] [address] [address] [address] Neil Krishnamurthy Cholesterol in LDL [Mass/Vol] 79.4 mg/dL Normal [facility] Comment on above: Performed By: #### O X24HR #### [facility] [address] [place], [place] [address] Dr. Neil Krishnamurthy Cholesterol.total/C holesterol in HDL [Mass ratio] 3.1 {ratio} Normal [facility] Comment on above: Performed By: #### O X24HR #### [facility] [address] [place], [place] [address] Dr. Neil Krishnamurthy HDL NORMAL > or = 60 mg/dl - LO W CARDIOVASCULAR RISK <40 mg/dl - HIGH CARDIOVASCULAR RISK Normal [facility] Comment on above: Performed By: #### O X24HR #### [facility] [address] [place], [place] [address] Dr. Neil Krishnamurthy LDL CALC NORMAL SEE BELOW Normal [facility] Comment on above: Result Comment: <100 mg/dl OPTIMAL 100 - 129 mg/dl NEAR OR ABOVE OPTIMAL 130 - 159 mg/dl BORDERLINE HIGH 160 - 189 mg/dl HIGH >190 mg/dl VERY HIGH Performed By: #### O X24HR #### [facility] [address] [place] [address] Dr. Neil Krishnamurthy Triglyceride [Mass/Vol] 138 mg/dL Normal <=150 [facility] Comment on above: Performed By: #### O X24HR #### [facility] [address] [place] [address] Dr. Neil Krishnamurthy VLDL CALC 27.6 mg/dL Normal [facility] Comment on above: Performed By: #### O X24HR #### [facility] [address] [place] [address] Dr. Neil Krishnamurthy LIVER PROFILEon 07-13-2022 Albumin [Mass/Vol] 3.5 g/dL Normal 3.4-5.0 [facility] Comment on above: Performed By: #### O X24HR #### [facility] [address] [place] [address] Dr. Neil Krishnamurthy Albumin/Globulin [Mass ratio] 1.0 {ratio} Normal [facility] Comment on above: Performed By: #### O X24HR #### [facility] [address] [place] [address] Dr. Neil Krishnamurthy ALP [Catalytic activity/Vol] 83 U/L Normal 46-116 [facility] Comment on above: Performed By: #### O X24HR #### [facility] [address] [place] [address] Dr. Neil Krishnamurthy ALT [Catalytic activity/Vol] 19 U/L Normal 14-59 [facility] Comment on above: Performed By: #### O X24HR #### [facility] [address] [place] [address] Dr. Neil Krishnamurthy AST [Catalytic activity/Vol] 15 U/L Normal 15-37 [facility] Comment on above: Performed By: #### O X24HR #### [facility] [address] [place] [address] Dr. Neil Krishnamurthy BILI, CONJUGATED 0.1 mg/dL Normal 0.0-0.2 [facility] Comment on above: Performed By: #### O X24HR #### [facility] [address] [place] [address] Dr. Neil Krishnamurthy Bilirubin [Mass/Vol] 0.6 mg/dL Normal 0.2-1.0 [facility] Comment on above: Performed By: #### O X24HR #### [facility] [address] [place] [address] Dr. Neil Krishnamurthy Globulin (S) [Mass/Vol] 3.5 g/dL Normal [facility] Comment on above: Performed By: #### O X24HR #### [facility] [address] [place] [address] Dr. Neil Krishnamurthy Protein [Mass/Vol] 7.0 g/dL Normal 6.4-8.2 [facility] Comment on above: Performed By: #### O X24HR #### [facility] [address] [place] [address] Dr. Neil Krishnamurthy PROF CHEM 8 (BAS METB)on Anion gap [Moles/Vol] 10.8 mmol/L Normal [facility] Comment on above: Performed By: #### O X24HR #### [facility] [address] [place] [address] Dr. Neil Krishnamurthy Calcium [Mass/Vol] 8.2 mg/dL Critically low 8.5-10.1 [facility] Comment on above: Performed By: #### O X24HR #### [facility] [address] [place] [address] Dr. Neil Krishnamurthy Chloride [Moles/Vol] 105 mmol/L Normal 98-107 [facility] Comment on above: Performed By: #### O X24HR #### [facility] [address] [place] [address] Dr. Neil Krishnamurthy CO2 [Moles/Vol] 24.5 mmol/L Normal 21.0-32.0 [facility] Comment on above: Performed By: #### O X24HR #### [facility] [address] [address] [address] Neil Krishnamurthy Creatinine [Mass/Vol] 0.74 mg/dL Normal 0.55-1.02 [facility] Comment on above: Performed By: #### O X24HR #### [facility] [address] [place] [address] Dr. Neil Krishnamurthy EGFR-AF SOMALI >60 Normal >=60 [facility] Comment on above: Performed By: #### O X24HR #### [facility] [address] [address] [address] Neil Krishnamurthy EGFR-NON AF SOMALI >60 Normal >=60 [facility] Comment on above: Performed By: #### O X24HR #### [facility] [address] [address] [address] Neil Krishnamurthy Glucose [Mass/Vol] 106 mg/dL Normal 74-106 [facility] Comment on above: Performed By: #### O X24HR #### [facility] [address] [address] [address] Neil Krishnamurthy Potassium [Moles/Vol] 3.5 mmol/L Normal 3.5-5.1 [facility] Comment on above: Performed By: #### O X24HR #### [facility] [address] [place] [address] Dr. Neil Krishnamurthy Sodium [Moles/Vol] 137 mmol/L Normal 136-145 [facility] Comment on above: Performed By: #### O X24HR #### [facility] [address] [address] [address] Neil Krishnamurthy Urea nitrogen [Mass/Vol] 11.0 mg/dL Normal 7.0-18.0 [facility] Comment on above: Performed By: #### O X24HR #### [facility] [address] [place] [address] Dr. Neil Krishnamurthy Urea nitrogen/Creatinine [Mass ratio] 14.8 mg/mg Normal [facility] Comment on above: Performed By: #### O X24HR #### [facility] [address] [place] [address] Dr. Neil Krishnamurthy TSHon 07-13-2022 TSH 1.166 uIU/mL Normal 0.358-3.740 [facility] Comment on above: Performed By: #### O X24HR #### [facility] [address] [place] [address] Dr. Neil Krishnamurthy VITAMIN D 25 OHon 07-13-2022 VIT D 25-OH 23.8 ng/mL Normal [facility] Comment on above: Performed By: #### V ITAD #### [facility] [address] [place] [address] Dr. Neil Krishnamurthy VIT D RANGES SEE BELOW Normal [facility] Comment on above: Result Comment: <20 ng/mL Vit D deficient 20 - <30 ng/mL Vit D insufficient 30 - 100 ng/mL Vit D sufficient >100 ng/mL Potential Toxicity Performed By: #### V ITAD #### [facility] [address] [place] [address] Dr. Neil Krishnamurthy MG MAMM SCREEN 3D MAKREL CADon 06-23-2022 MG MAMM SCREEN 3D MARKEL CAD Patient: LUL BRITTON Exam Date: 06/23/2022 : 1985 Gender:F Ordering : DR KATHY BARRAGAN . Admission #: [id number] Family : Order #: [id number] CLICK HERE TO VIEW EXAM RADIOLOGY REPORT [...] cervical cancer at age 31. LOCATION: [facility] BREAST COMPOSITION: Heterogeneously dense,which may obscure small [...] Quezada MD on 06/23/2022 at 11:17 Normal [facility] PAP ACOG PANEL 2: 30 to 65on 06-16-2022 . . Normal [facility] Comment on above: Result Comment: Perf ormed at: WB Performed By: #### C O2, CL, BUN, CREA, URIC, K, CA, NA #### [facility] [address] [address] [address] Neil Krishnamurthy Age Gdln ACOG Testing 30-65 Normal [facility] Comment on above: Performed By: #### C O2, CL, BUN, CREA, URIC, K, CA, NA #### [facility] [address] [address] [address] Neil Krishnamurthy DIAGNOSIS: Comment Normal [facility] Comment on above: Result Comment: NEGA TIVE FOR INTRAEPITHELIAL LESION OR MALIGNANCY. Performed at: [facility] Performed By: #### C O2, CL, BUN, CREA, URIC, K, CA, NA #### [facility] [address] [address] [address] Neil Krishnamurthy HPV Aptima Negative Normal Negative [facility] Comment on above: Result Comment: This nucleic acid amplification test detects fourteen high-risk HPV types (16,18,31,33,35,39,45,51,52,56,58,59,66,68) without differentiation. Performed at: =G Performed By: #### C O2, CL, BUN, CREA, URIC, K, CA, NA #### [facility] [address] [address] [address] Neil Krishnamurthy Methodology: Comment Normal [facility] Comment on above: Result Comment: This liquid based ThinPrep(R) pap test was screened with the use of an image guided system. Performed at: [facility] Performed By: #### C O2, CL, BUN, CREA, URIC, K, CA, NA #### [facility] [address] [address] [address] Neil Krishnamurthy Note: Comment Normal [facility] Comment on above: Result Comment: The Pap [...] BUN, CREA, URIC, K, CA, NA #### [facility] [address] [address] [address] Neil Krishnamurthy Performed by: Comment Normal [facility] Comment on above: Result Comment: Fang Song, Wrapper Hands Sprayer (ASCP) Performed at: WB Performed By: #### C O2, CL, BUN, CREA, URIC, K, CA, NA #### [facility] [address] [place] [address] Dr. Neil Krishnamurthy Specimen adequacy: Comment Normal [facility] Comment on above: Result Comment: Sati sfactory for evaluation. Endocervical and/or squamous metaplastic cells (endocervical component) are present. Performed at: WB Performed By: #### C O2, CL, BUN, CREA, URIC, K, CA, NA #### [facility] [address] [place] [address] Dr. Neil Krishnamurthy VAGINITIS/VAGINOSIS DNA PROB Jovi 06-03-2022 Rachel species Negative Normal Negative [facility] Comment on above: Performed By: #### V AGINT #### [facility] [address] [place] [address] Dr. Neil Krishnamurthy Gardnerella vaginalis Positive Abnormal Negative [facility] Comment on above: Performed By: #### V AGINT #### [facility] [address] [place] [address] Dr. Neil Krishnamurthy Trichomonas vaginalis Negative Normal Negative [facility] Comment on above: Performed By: #### V AGINT #### [facility] [address] [place] [address] Dr. Neil Krishnamurthy COVID Quick Testingon 2020 Result Positive [facility] Other XR ABDOMEN LIMITED (KUB)on XR ABDOMEN LIMITED (KUB) EXAMINATION:SUPINE VIEW(S) OF THE [id number]/08/2017 1:38 pmCOMPARISON:October 19, 2010HISTORY:ORDERING SYSTEM PROVIDED HISTORY: [...] by:TIMBO Menendezigned by:Raheel Morales MD07/08/17Final result Normal [facility] Vital Signs Date Time Vital Sign Value Performing Clinician Facility 09-22-2023 12:00-0500 Body height 152.4 cm Elisabeth Ma Other [facility] Other 09-22-2023 12:00-0500 Body mass index (BMI) [Ratio] 41.87 kg/m2 Elisabeth Ma Other [facility] Other 09-22-2023 12:00-0500 Body temperature 97.7 [degF] Elisabeth Ma Other [facility] Other 09-22-2023 12:00-0500 Body weight 97.25 kg Elisabeth Ma Other [facility] Other 09-22-2023 12:00-0500 Diastolic blood pressure 86 mm[Hg] Elisabeth Ma Other [facility] Other 09-22-2023 12:00-0500 Respiratory rate 18 /min Elisabeth Ma Other [facility] Other 09-22-2023 12:00-0500 SaO2% (BldA) [Mass fraction] 99 % Elisabeth Ma Other [facility] Other 09-22-2023 12:00-0500 Systolic blood pressure 124 mm[Hg] Elisabeth Ma Other [facility] Other 03-06-2023 13:50-0400 Body height 152.4 cm Leana Soler Other [facility] Other 03-06-2023 13:50-0400 Body mass index (BMI) [Ratio] 42.3 kg/m2 Leana Soler Other [facility] Other 03-06-2023 13:50-0400 Body temperature 98.2 [degF] Leana Soler Other [facility] Other 03-06-2023 13:50-0400 Body weight 98.25 kg Leana Soler Other [facility] Other 03-06-2023 13:50-0400 Diastolic blood pressure 76 mm[Hg] Leana Soler Other [facility] Other 03-06-2023 13:50-0400 Respiratory rate 18 /min Leana Soler Other [facility] Other 03-06-2023 13:50-0400 SaO2% (BldA) [Mass fraction] 100 % Leana Soler Other [facility] Other 03-06-2023 13:50-0400 Systolic blood pressure 111 mm[Hg] Leana Soler Other [facility] Other 09-01-2022 17:15-0500 Body height 152.4 cm Jennyfer Ruiz Other [facility] Other 09-01-2022 17:15-0500 Body mass index (BMI) [Ratio] 41.98 kg/m2 Jennyfer Ruiz Other [facility] Other 09-01-2022 17:15-0500 Body temperature 98.4 [degF] Jennyfer Ruiz Other [facility] Other 09-01-2022 17:15-0500 Body weight 97.52 kg Jennyfer Ruiz Other [facility] Other 09-01-2022 17:15-0500 Respiratory rate 18 /min Jennyfer Ruiz Other [facility] Other 09-01-2022 17:15-0500 SaO2% (BldA) [Mass fraction] 99 % Jennyfer Ruiz Other [facility] Other 04-22-2022 14:30-0400 Body height 152.4 cm Jessenia Ortiz Other [facility] Other 04-22-2022 14:30-0400 Body mass index (BMI) [Ratio] 40.42 kg/m2 Jessenia Angel Other [facility] Other 04-22-2022 14:30-0400 Body weight 93.9 kg Jessenia Angel Other [facility] Other 04-22-2022 14:30-0400 Diastolic blood pressure 89 mm[Hg] Jessenia Angel Other [facility] Other 04-22-2022 14:30-0400 Respiratory rate 18 /min Jessenia Ortiz Other [facility] Other 04-22-2022 14:30-0400 SaO2% (BldA) [Mass fraction] 100 % Jessenia Ortiz Other [facility] Other 04-22-2022 14:30-0400 Systolic blood pressure 116 mm[Hg] Jessenia Ortiz Other [facility] Other 07-22-2021 11:00-0400 Body height 152.4 cm Jennyfer Ruiz Other [facility] Other 07-22-2021 11:00-0400 Body mass index (BMI) [Ratio] 38.08 kg/m2 Jennyfer Maravillamond Other [facility] Other 07-22-2021 11:00-0400 Body temperature 96.2 [degF] Jennyfer Ruiz Other [facility] Other 07-22-2021 11:00-0400 Body weight 88.45 kg Jennyfer Ruiz Other [facility] Other 07-22-2021 11:00-0400 Respiratory rate 18 /min Jennyfer Ruiz Other [facility] Other 07-22-2021 11:00-0400 SaO2% (BldA) [Mass fraction] 99 % Jennyfer Maravillamond Other [facility] Other Encounters Encounter Date Encounter Type Care Provider Facility Start: 03-26-2024 End: 03-26-2024 ambulatory ABDOUL ALBERTO Not Available Start: 03-20-2024 ambulatory GIAN C [facility] Start: 03-15-2024 End: 03-15-2024 ambulatory GIAN C [facility] Start: 02-21-2024 End: 02-21-2024 ambulatory LIN STUBBSMIS Not Available Start: 02-17-2024 End: 02-17-2024 ambulatory Lin Gustavo Timmis Facility:[facility] Start: 02-17-2024 End: 02-17-2024 Patient encounter procedure Lin Pedersons [facility] Start: 01-16-2024 End: 01-16-2024 ambulatory LIN Gustavo TIMMIS Not Available Start: 12-20-2023 End: 12-20-2023 ambulatory ABDOUL QUIROZERER Not Available Start: 10-04-2023 End: 10-04-2023 ambulatory ABDOUL NADERER Not Available Start: 09-22-2023 End: 09-22-2023 ambulatory Elisabeth Ma Other [facility] Other Start: 09-22-2023 Office outpatient vi sit 15 minutes Elisabeth Ma [facility] Start: 09-05-2023 End: 09-06-2023 ambulatory Joanne Cameron MD Facility:[facility] [place] Start: 08-15-2023 End: 08-16-2023 ambulatory Joanne Cameron MD Facility:[facility] [place] Start: 07-05-2023 End: 07-05-2023 ambulatory XIMENA SCALES Facility: [place] Start: 07-05-2023 End: 07-05-2023 Patient encounter procedure XIMENA SCALES [facility] Start: 03-06-2023 End: 03-06-2023 Patient encounter procedure KEN Soler Work Phone: [facility] Work Phone: Start: 03-06-2023 End: 03-06-2023 ambulatory Leana Soler [facility] Other Start: 03-06-2023 Office outpatient vi sit 15 minutes Leana Soler [facility] Start: 12-06-2022 End: 12-07-[address] ISRA CHAN . Facility:[facility] Start: 11-17-2022 End: 11-18-[address] ABDOUL ALBERTO Facility:[facility] Start: 11-01-2022 End: 12-11-[address] ABDOUL ALBERTO Facility:[facility] Start: 10-30-2022 End: 10-31-[address] ABDOUL ALBERTO Facility:[facility] Start: 10-12-2022 End: 10-13-[address] ABDOUL ALBERTO Facility:[facility] Start: 10-04-2022 End: 10-04-2022 Patient encounter procedure Isra CHAN [facility] Start: 10-02-2022 End: 10-03-[address] ISRA CHAN . Facility:[facility] Start: 09-01-2022 End: 09-01-2022 ambulatory Jennyfer Ruiz Other [employer] Other Start: 09-01-2022 Office outpatient vi sit 15 minutes Jennyfer Ruiz [facility] Start: 08-27-2022 End: 08-28-[address] RIC QUEZADA Facility:[facility] Start: 07-18-2022 Encounter for genera l adult medical examination without abnormal findings DR ABDOUL ALBERTO [facility] Start: 07-13-2022 End: [address] ABDOUL ALBERTO Facility:[facility] Start: 07-13-2022 End: 2022 Encounter for general adult medical examination without abnormal findings DR ABDOUL ALBERTO Facility:[facility] Start: 06-23-2022 End: 06-24-[address] KTAHY BARRAGAN . Facility:[facility] Start: 06-09-2022 End: 06-09-[address] KATHY BARRAGAN . Facility:[facility] Start: 06-02-2022 End: 06-02-[address] DOCTOR GOODSON Facility:[facility] Start: 04-22-2022 End: 04-22-2022 ambulatory Jessenia Ortiz Other [employer] Other Start: 04-22-2022 Office outpatient vi sit 15 minutes Jessenia Ortiz [facility] Start: 07-22-2021 End: 07-22-2021 ambulatory Jennyfer Ruiz Other [facility] Other Start: 07-22-2021 Office outpatient vi sit 15 minutes Jennyfer Sara [facility] Start: 07-08-2017 End: 07-09-2017 Ambulatory MINGO SCHUMACHER [facility] Procedures Date Procedure Procedure Detail Performing Clinician Start: 03-06-2023 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 Leana Soler Work Phone: Start: 07-08-2017 X-ray exam of abdomen S YAJAIRA SCHUMACHER Appendectomy Isra CHAN Cholecystectomy Isra KAISER Colonoscopy Isra CHAN Hernia of abdominal cavity (disorder) Isra CHAN Ligation of fallopian tube P atrick CLARITZA Lithotripsy Isra CHAN Plan of Treatment Date Care Activity Detail Author Start: 07-10-2024 ambulatory Ambulatory Facility:[facility] [place] Immunizations Immunization Date Immunization Notes Care Provider Griselda adame 05-11-2010 tetanus toxoid, redu jose juan diphtheria toxoid, and acellular pertussis vaccine, adsorbed Isra CHAN [facility] 01-10-2007 varicella virus vaccine Patsalomón CHAN [facility] 12-07-2006 varicella virus vaccine Patr jorje CHAN [facility] 04-25-2006 hepatitis B vaccine, pediatric or pediatric/adolescent dosage Isra CHAN [facility] 12-20-2005 hepatitis B vaccine, pediatric or pediatric/adolescent dosage Isra CHAN [facility] 11-15-2005 hepatitis B vaccine, pediatric or pediatric/adolescent dosage Isra CHAN [facility] 03-10-1999 DTaP, unspecified formulation Isra CHAN [facility] 03-10-1999 measles, mumps and rubella virus vaccine Isra CHAN [facility] Payers Date Payer Category Payer Self-pay 2022 Medicaid [id number] 2022 Unknown 2017 Unknown [id number] 2.1 [id number] 1986 Unknown [id number] 2.16.84 0.1.367774.3.579.2.593 1986 Unknown [id number] 2.16.84 0.1.198853.3.579.2.593 1986 Unknown [id number] 2.16.84 0.1.140844.3.579.2.593 1986 Unknown [id number] 2.16.84 0.1.401395.3.579.2.593 1986 Unknown [id number] 2.16.84 0.1.462977.3.579.2.593 1986 Unknown [id number] 2.16.84 0.1.228856.3.579.2.593 1986 Unknown [id number] 2.16.84 0.1.959964.3.579.2.593 1986 Unknown [id number] 2.16.84 0.1.634308.3.579.2.593 1986 Unknown [id number] 2.16.84 0.1.948918.3.579.2.593 1986 Unknown [id number] 2.16.84 0.1.050425.3.579.2.593 1986 Unknown [id number] 2.16.84 0.1.045766.3.579.2.593 1986 Unknown [id number] 2.16. 840.1.485426.3.579.2.196 1986 Unknown [id number] 2.16. 840.1.268210.3.579.2.196 1986 Unknown [id number] 2.16.8 40.1.473059.3.579.2.1244 1986 Unknown [id number] 2.16.8 40.1.459574.3.579.2.1245 1986 Unknown [id number] 2.16.84 0.1.563701.3.579.2.1259 1986 Unknown [id number] 2.16.84 0.1.676499.3.579.2.1259 1986 Unknown [id number] 2.16.84 0.1.152262.3.579.2.1259 1986 Unknown [id number] 2.16.84 0.1.131379.3.579.2.1259 1986 Unknown [id number] 2.16.84 0.1.529312.3.579.2.1259 1986 Unknown [id number] 2.16.8 40.1.348374.3.579.2.727 1986 Unknown [id number] 2.16.8 40.1.749075.3.579.2.727 1986 Unknown [id number] 2.16.8 40.1.512177.3.579.2.727 1959 Unknown [id number] 1959 Unknown [id number] 2.1 6.840.1.397160.19 1959 Unknown [id number] Unknown [id number] 2.16.8 40.1.557920.19 Unknown [id number] 2.16.8 40.1.550993.3.579.2.531 Social History Date Type Detail Facility Unknown if ever smoked [employer] [facility] Other [facility] At [facility] Start: 10-04-2022 End: 02-08-2023 Tobacco smoking status Never smoked tobacco (finding) [facility] Start: 1985 Sex Assigned At Female F [facility] Functional Status Date Assessment Result Facility 07-05-2023 Functional Status N/A [facility] 10-04-2022 Functional Status N/A [facility] Clinical Notes 07-22-2021 to 09-22-2023 Note Date & Type Note Facility 09-22-2023 Evaluation note Encounter Date Diagnosis Assessment Notes Sep, Dysuria (ICD-10 - R30.0) Discussed dipstick findings with patient. Advised patient that there is no evidence of acute UTI. Advised that this is likely related to stone. Recommended ER for further evaluation and workup. Patient verbalizes understanding and is agreeable with treatment plan [employer] [facility] [employer] Other 09-25-2023 Hospital Discharge instructions Patient Education 06/13/2023 08:46:41 Dietary Guidelines [...] include: ?8 oz (237 mL) of milk, snvokdg-esvgewxhgzts-bvozr milk, and calcium- fortifiedfruit juice. Calcium-fortified means that calcium has been [...] protein (TVP), or tofu, instead of meat inpasta, casseroles, and soups. Meal planning Eat less [...] ?Spinach (cooked), rhubarb, beets, sweet potatoes, and Micronesian chard. ?Peanuts. ?Potato chips, kyrgyz fries, and baked potatoes with skin on. ?Nuts and nut products. ?Chocolate. If you regularly take a diuretic medicine, make sure to eat at least 1 or 2 servings of fruits or vegetables that are high in potassium each day. These include: ?Avocado. ?Banana. ?Boyd, prune, carrot, or tomato juice. ?Baked potato. [...] taking daily supplements. You may be told thefollowing depending on your health and the cause of your kidney stones: ?Not to take supplements with vitamin C. ?To take a calcium supplement. ?To take a daily probiotic supplement. ?To take other supplements such as magnesium, fish oil, or vitamin B6. Take ggrw-awi-qqqhzrw and prescription medicines only as told by [...] Casseroles. Pizza. Lasagna. Frozen meals. Potato chips. Chadian fries. The items listed above may not be a complete list of foods and beverages you should limit. Contact a dietitian for more information. What foods should I avoid? Talk to your dietitian about specific foods you should avoid based on the type of kidney stones youhave and your overall health. Fruits Grapefruit. The item listed above may not be a complete list of foods and beverages you should avoid. Contact adietitian for more information. Summary Kidney stones are [...] provider. Document Revised: 05/17/2022 Document Reviewed: 05/17/2022 [employer] Patient Education 2022 [employer]. Follow Up Care 02/08/2023 16:17:30 With:YORDY WILLSON, XIMENA Lam, URL Address: [address] [address] [id number] When: Unknown Comments:2 yr w/ BOGDAN and QING [facility] [place] 06-18-2023 Evaluation note* Encounter Date Diagnosis Assessment Notes Treatment Notes Treatment Clinical Notes Feb, Acute pain of left foot [...] fever. Patient verbalized understanding of treatment plan. [facility] Other 01-16-2023 Hospital Discharge instructions Patient Education 10/04/2022 08:31:43 [...] include: ?Spinach. ?Rhubarb. ?Beets. ?Potato chips and kyrgyz fries. ?Nuts. If you regularly take a diuretic medicine, make sure to eat at least 1 2 fruits or vegetables high in potassium each day. These include: ?Avocado. ?Banana. ?Boyd, prune, carrot, or tomato juice. ?Baked potato. [...] Casseroles. Pizza. Lasagna. Frozen meals. Potato chips. Chadian fries. Summary You can reduce your risk [...] 12/31/2011 Document Revised: 12/26/2019 Document Reviewed: 08/16/2017 [employer] Patient Education 2019 [employer]. Follow Up Care 08/30/2022 15:20:43 With:CLARITZA JOHNSTON, Isra Lorenzana, URL Address: [facility] [address], [place] [address]- When: Unknown [facility] 12-14-2022 Evaluation note* Encounter Date Diagnosis Assessment [...] needed for cough or shortness of breath [facility] Other 08-04-2022 Evaluation note* Encounter Date Diagnosis [...] care provider if no improvement of symptoms. [facility] Other 11-03-2021 Evaluation note* Encounter Date Diagnosis [...] Patient care instructions given in writting by [facility] Care At Home document. [facility] Other Evaluation + Plan note Future Appointments Appointment Date:01/10/2023 03:15:00 PM Scheduled Provider:Isra CHAN MD Location:[facility] Appointment Type:URO Office Visit Diagnostic Tests Pending * Creatinine 10/04/22 [facility] evaluation + Plan note Future Appointments Appointment Date:07/10/2024 02:00:00 PM Scheduled Provider:XIMENA SCALES PA-C Location:[facility] Appointment Type:URO Office Visit [facility] evalhuwajh noteNo assessment information available [facility] Work Phone: history general Narrative - Reported* Type Description Date Medical History kidney stones Surgical History C section Surgical History appendectomy Surgical History cholecystectomy Surgical History hernia repair Surgical History lithotripsy Surgical History wisdom teeth extract Hospitalization History see above [facility] Other [facility] Narrative - Reported* Type Description Date Medical History kidney stones Medical History anxiety Medical History migraine headache Surgical History C section Surgical History appendectomy Surgical History cholecystectomy Surgical History hernia repair Surgical History lithotripsy Surgical History wisdom teeth extract Hospitalization History see above [facility] Other [facility] Narrative - Reported* Type Description Date Medical History kidney stones Medical History anxiety Medical History migraine headache Surgical History C section Surgical History appendectomy Surgical History cholecystectomy Surgical History hernia repair Surgical History lithotripsy Surgical History wisdom teeth extract Surgical History cortisone shots in back Hospitalization History see above [facility] Other Hospital course Narrative No data available for this section [facility] Hospital Discharge instructions No data available for this section [facility] No data available for this section [facility] [place] Summary Purpose Family History No Family History Records FoundNo Family History Records FoundNo Family History Records Found No data available for this section No Family History Records Found No data available [...] section and content) DATE CREATED AUTHOR 03/14/2018 [facility] DATE CREATED AUTHOR AUTHOR'S ORGANIZ ATION 01/19/2023 [facility] DATE CREATED AUTHOR AUTHOR'S ORGANIZ ATION 03/19/2023 [facility] DATE CREATED AUTHOR AUTHOR'S ORGANIZ ATION 09/09/2023 [facility] DATE CREATED AUTHOR AUTHOR'S ORGANIZ ATION 03/17/2024 [facility] DATE CREATED AUTHOR AUTHOR'S ORGANIZ ATION 03/22/2024 [facility] DATE CREATED AUTHOR AUTHOR'S ORGANIZ ATION 04/03/2024 [facility] DATE CREATED AUTHOR AUTHOR'S ORGANIZ ATION 04/07/2024 [facility] REASON FOR VISIT (unrecogniz ed section and content) #5 sinus congestion, body ac hes, fatigueB/L EARACHECOUGH, CONGESTIONSWOLLEN, LEFT FOOT BEEN THAT WAY ABOUT 5 DAYS, NO INJURYpossible UTI Patient Care team informatio n (unrecognized section and content) Team Status: Inactive Member Role Status Dates Leana Soler APRN Attending Provider Active Goals (unrecognized section and [...] BE BASED ON THE PRIMARY CLINICAL RECORDS. [facility]. provides no warranty or guarantee of the accuracy or completeness of information in this document.
[2024-04-16 10:18] LABS: HCG Qualitative NEGATIVE (NEGATIVE); Internal Control Within Normal Limits
[2024-04-16 10:32] VITALS: BP 114/85; PULSE 79; TEMP 36.9; O2SAT 99
[2024-04-16 11:15] VITALS: BP 120/74; PULSE 70; O2SAT 98
[2024-04-16] MEDS: BUPIVACAINE HCL 0.25% PF 25 MG/10 ML VIAL 6 ML INJ (11:17)
[2024-04-16] MEDS: LIDOCAINE HCL 2% 400 MG/20 ML MDV INJ (11:17)
[2024-04-16 11:18] VITALS: BP 124/75; PULSE 77; O2SAT 98
--- NOTE | 2024-04-16 11:19 | W.PM.PROCNOT ---
Date of procedure: 04/16/24 Pre-op diagnosis: Pain due to thoracic spondylosis without myelopathy Post-op diagnosis: same as pre-op Procedure: Procedure: Bilateral T10-11, 11-12 medial branch block Medications: Bupivacaine 0.25% 6cc The patient was seen and examined in the preoperative holding area.? An informed consent was obtained and placed on the chart.? The patient was brought to the medical procedure unit and placed in the prone position.? A timeout was completed verifying correct patient, procedure site, positioning, plan, and special equipment.? Using aseptic technique, the needle was placed at left T10. Under direct fluoroscopic visualization a Quincke-tipped spinal needle was advanced to the junction of the superior articulating process with the transverse process at the designated medial branch segment.? Preceded by negative aspiration, the above-mentioned injectate was placed in 1 mL aliquots.? The procedure was repeated at left T11, 12.? The needle was removed and insertion site was covered. The same procedure, at the same levels, was completed on the right side. The patient was taken to the postprocedural recovery area and monitored for an appropriate length of time before found suitable for discharge in the company of a responsible adult. Anesthesia: Local Surgeon: Joanne Cameron Pathology: none sent Condition: stable Disposition: no change
== END 2024-04-16 11:23 | disposition home or self-care (01) ==
LOC: SURGOUT 09:50
PROVIDERS: PCP Family Medicine; Visit Provider Anesthesiology
DX: M47.814 Spondylosis without myelopathy or radiculopathy, thoracic region (principal)
CPT/HCPCS: 36415; 64490; 64491; 84703; J0665

== ENCOUNTER 2024-04-19 15:09 | Outpatient (OUT) | payer OTHER, SELFPAY ==
--- NOTE | 2024-04-19 15:36 | P.CN_ITS ---
Consult Note: HPI Data of Consult Patient: known to practice within the last 3 years Consult date: 08/15/23 Requesting Physician: Charmaine Yates NP Primary Care Provider: Kirby Delong MD Consult Narrative Reason for consult: Midback, neck, right shoulder pain Narrative: 38yof who presents for evaluation. Worsening midback, neck, right shoulder pain. Ongoing for 1+ year. Completed physical therapy x6 weeks, with minimal benefit. Continues in provider directed home exercises >3x/week for >6 weeks, with minimal benefit. Tried muscle relaxers, with minimal benefit. XR reviewed, which is significant for cervical and thoracic spondylosis. Patient reports >90% immediate relief and functional improvement for a few hours, and ongoing relief, after bilateral T10-11 T11-12 facet medial branch block #1 and #2. Today pain is 1/10, increases with 8/10 with lifting and activity. finds mild benefit to current medication regimen without side effects. cc:: CC: Charmaine Yates NP Review of Systems ROS Status of ROS 10 or more systems reviewed and unremark able except as noted in history and below Musculoskeletal Reports: back pain PFSH PFSH Medical History (Updated 04/10/24 @ 12:18 by Clara Hammonds RN) Arthritis ?M19.90 - Unspecified osteoarthritis, unspecified site (ICD-10) Acid reflux ?K21.9 - Gastro-esophageal reflux disease without esophagitis (ICD-10) Kidney stone ?N20.0 - Calculus of kidney (ICD-10) Sleep apnea ?G47.30 - Sleep apnea, unspecified (ICD-10) Heart murmur ?R01.1 - Cardiac murmur, unspecified (ICD-10) Surgical History History of lithotripsy ?Z98.890 - Other specified postprocedural states (ICD-10) History of tubal ligation ?Z98.51 - Tubal ligation status (ICD-10) Hx of cholecystectomy ?Z90.49 - Acquired absence of other specified parts of digestive tract (ICD- 10) History of umbilical hernia repair ?Z98.890 - Other specified postprocedural states (ICD-10) ?Z87.19 - Personal history of other diseases of the digestive system (ICD-10) History of appendectomy ?Z90.49 - Acquired absence of other specified parts of digestive tract (ICD- 10) H/O section ?Z98.891 - History of uterine scar from previous surgery (ICD-10) Meds Home Medications and Allergies Home Medications ?Medication ?Instructions ?Recorded ?Confirmed ?Type dextroamphetamine-amphetamine 20 40 mg PO DAILY 08/15/23 04/16/24 History mg tablet (Adderall) etodolac 400 mg tablet (Lodine) 400 mg PO BID 08/15/23 04/16/24 History paroxetine HCl 20 mg tablet (Paxil) 20 mg PO DAILY 08/15/23 04/16/24 History baclofen 10 mg tablet 10 mg PO DAILY 09/14/23 04/16/24 History amitriptyline 25 mg tablet mg 04/16/24 History Allergies Allergy/AdvReac Type Severity Reaction Status Date / Time Penicillins Allergy Verified 09/05/23 07:48 Exam Narrative Exam Narrative: Psych-alert and oriented x 3.? Attentive and appropriate, constitutionally normal, displays normal mood and affect per situation.? There are no obvious deficits in memory, reasoning, or intellect.? Skin-no obvious rashes, bruising, or erythema noted to the patient's area of pain. Extremities-upper extremities are warm with minimal edema and palpable pulses. Cervical- tenderness to palpation noted in the cervical spine and paraspinal musculature.? Pain is elicited with extension, and lateral rotation of the cervical spine.? Range of motion is slightly diminished due to pain. Facet loading maneuvers are positive bilaterally.? Thoracic- tenderness to palpation noted in thoracic spine and paraspinal musculature. Pain elicited with flexion, lateral rotation. Coordination remains intact.? Gait remains non-antalgic. Constitutional Documenting provider has reviewed patient's vital signs: yes Psych Common normals: mental status grossly normal, thought process normal, cooperative, affect normal, speech normal and activity/motor behavior normal Speech: normal speech Thought process: normal thought process Results Additional Findings Additional findings: If on a controlled substance or opioids, I have checked an [place]AR[place] report on this patient and there are no aberrancies noted in the prescribing history.??If on a controlled substance or opioid a drug screen was completed and reviewed within the last year, and if there has not been a drug screen completed we ordered one today to monitor higher risk, state monitored pain medication use. As part of providing excellent, safe, comprehensive care, the following was completed at our patient's visit: 1. A medication reconciliation and review to ensure accurate knowledge of current/active medications, including asking our patients to inform us about any azyw-nis-miuceya medications or herbal remedies/nutritional supplements/alternative remedies. 2. A review to specifically ensure our patients have had annual screening for screening for depression, screening for tobacco use, and screening for unhealthy alcohol use. For concerning screenings had a discussion with the patient, provided patient education, and recommended follow-up with primary care provider when appropriate. If patient noted with a risk of falling, they received education on strength, gait, and balance training to prevent future risk of falling. Assessment and Plan Assessment and Plan (1) Thoracic spondylosis: (2) Myofascial pain: Plan right then left T10/11 t11/12 facet RFA under fluoroscopy with 10mg po valium 30-60 mins prior for anxiolysis. risks vs benefits reviewed increase baclofen 5-10mg BID PRN pain/spasms f/u 1 month after RFA complete
== END 2024-04-19 15:10 | disposition home or self-care (01) ==
LOC: PM 15:10
PROVIDERS: PCP Family Medicine; Visit Provider Nurse Practitioner
DX: M47.814 Spondylosis without myelopathy or radiculopathy, thoracic region (principal); M79.18 Myalgia, other site
CPT/HCPCS: G0463

== ENCOUNTER 2024-06-04 06:55 | Day surgery (SDC) | payer OTHER, SELFPAY ==
--- OUTSIDE RECORDS SUMMARY | 2024-06-04 06:58 | XMS_ITS | CCD ---
Author Organization [facility] Care Team Providers Care Chocolate Maker Name Role Phone WINSOME, MINGO S Unavailable [...] Unavailable CHAN ., DR CASTILLO Admitting Unavailable HCAN ., DR CASTILLO Consulting Unavailable NADERER, DR [...] Unavailable NO FAMILY, PHYSICIAN Primary Care Unavailable Elisabeth Ma Unavailable ABDOUL ALBERTO Attending Unavailable ABDOUL ALBERTO Attending Unavailable ENOCMIS, LIN H Attending Unavailable ABDOUL ALBERTO Referring Unavailable TIMMIS, LIN H Attending Unavailable NADABDOUL YUSUF Attending Unavailable Giedraitis , Andrius Olivares Attending Unavailable Giedraitis , Andrius Marshall Attending Unavailable Giedraitis , Andrius Vytautas Attending Unavailable YORDY, XIMENA E Attending Unavailable YORDY, XIMENA E Attending Unavailable Timmis, Lin H Attending Unavailable Timmis, Lin H Referring Unavailable Timmis, Lin H Admitting Unavailable CADEN, GIAN C Admitting Unavailable CADEN, GIAN C Attending Unavailable CADEN, GIAN C Attending Unavailable SALLOUHAGORGE Attending Unavailable Allergies Allergy Classification Reported Allergen(s) Allergy Type Date of Onset Reaction(s) Facility Penicillins (antibiotic) (1 source) Penicillin G; Translations: [penicillin G benzathine] Drug Allergy Eruption of skin (disorder) [facility] (8 sources) Penicillin G Benzathine; Translations: [Penicillin G] Drug allergy rash, Eruption of skin (disorder) [facility] (1 source) Penicillin Drug Allergy [facility] (2 sources) Penicillins; Translations: [PENICILLINS] Propensity to adverse reactions to drug (disorder) 4 [facility] Repository Medications Current Medications Medication Drug Class(es) [...] 2 tablets Orally Once a day Not-Taking/PRN [id number] 60 actuat albuterol 0.09 mg/actuat metered dose [...] hua Not-Taking hydroCHLOROthiaz hua Active polymyxin b 24764 unt/ml / trimethoprim 1 mg/ml ophthalmic solution (1 source) Dihydrofolate Reductase Inhibitor Antibacterial, Polymyxin-class Antibacterial Start: 02-01-2023 take 1 drop(s) into the eye(s) every three hours Polytrim 72949-3.1 UNIT/ML 1 drop into affected eye Ophthalmic every 3 hours while awake for January, Not-Taking Polytrim 03158-1.1 UNIT/ML (1 source) Start: 02-01-2023 take 1 drop(s) into the eye(s) every three hours as needed Polytrim 90278-9.1 UNIT/ML 1 drop into affected eye Ophthalmic every 3 hours while awake for January, Not-Taking/PRN predniSONE 20 mg oral tablet [...] kidney; Translations: [Kidney stone] Onset: 07-08-2017 Episodic Diseases of mouth; excluding dental (2 sources) Diseases of lips; Translations: [Diseases of lips] Onset: 05-07-2024 Episodic Genitourinary symptoms and ill-defined conditions (1 [...] nose; 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] Onset: 03-15-2024 Episodic Other connective tissue disease (1 source) Pain in right arm; Translations: [PAIN IN RIGHT ARM] Onset: 11-03-2022 Episodic Other connective tissue disease (1 source) Pain in left foot Episodic Other injuries and conditions due to external causes (1 source) History of falling; Translations: [HISTORY OF FALLING] Onset: 11-05-2022 Episodic Other upper respiratory disease (4 sources) Deviated nasal septum; Translations: [Deviated nasal septum] Onset: 03-15-2024 Episodic Other upper respiratory disease (2 sources) Nasal congestion; Translations: [Nasal congestion] Onset: 03-15-2024 Episodic Other upper respiratory disease (2 sources) Hypertrophy of nasal turbinates; Translations: [Hypertrophy of nasal turbinates] Onset: 03-15-2024 Episodic Other upper respiratory disease (2 sources) Deviated nasal septum; Translations: [Deviated Nasal Septum] Onset: 03-15-2024 Episodic Other upper respiratory infections (1 source) [...] Diamond DO Transcribed by: ADILENE Technologist: GALLO [facility] Consent for Treatmenton 01-19 Consent for Treatment [id number] 0TIFF [facility] Physician Orderon 01-26-2024 Physician Order [id number] 0TIFF [facility] RAD - MISCon 09-23-2023 RAD - MISC [id number] 0TIFF Normal [facility] RAD - Ultrasound Reporton RAD - Ultrasound Report [id number] 0TIFF Normal [facility] Urinalysis - AUTOMATEDon Appearance (U) clear [employer] Other Bilirubin Ql (U) Negative [employer] Other Color (U) yellow [employer] Other Glucose Ql (U) Negative [employer] Other Hemoglobin Ql (U) small [employer] Other Ketones Ql (U) Negative [employer] Other Leukocyte esterase Test strip Ql (U) Negative [employer] Other Nitrite Ql (U) Negative [employer] Other pH (U) 7.0 [pH] [employer] Other Protein Ql (U) Negative [employer] Other Specific gravity (U) [Rel density] 1.025 [employer] Other Urobilinogen (U) [Mass/Vol] 0.2 mg/dL [employer] Other Urinalysis - AUTOMATED [employer] Other RAD - MISCon 07-08-2023 RAD - MISC [id number] 0TIFF Normal [facility] Screenson 07-06-2023 Screens [id number] 0TIFF Normal [facility] Ambulatory Visit Summaryon Ambulatory Visit Summary LUL BRITTON :1985 Visit Date:07/05/2023 Ambulatory Visit Instructions Your Diagnosis Kidney stones Flank pain History of kidney stones Tests Performed Urnls Dip Stick Auto w/o Microscopy POC 42525 US Renal -- Results Pending -- XR [...] XIMENA SCALES PA-C Where: [facility] Reminderson 07-05-2023 Reminders - From: Ailin Dubose To: PADMINI Scales; Sent: 07/05/2023 15:50:31 EDT Show up: 06/19/2024 15:50:00 EDT Subject: KUB and QING prior to appt Reminder Message Please Remember to:_have pt complete KUB and QING prior to appt. Prefers [facility]. [facility] Urology Office/Clinic Noteon 07-05-2023 Urology Office/Clinic Note [...] stones since age 20. Previously treated in [place]. S/P Lithotripsy in 2017. Hx of 8 [...] Contact Information YORDY WILLSON, XIMENA Lam, URL [address] [place] [address] [phone] Additional Instructions: 2 yr w/ KUB and [...] Protein Urine Dipstick: Negative (07/05/23 15:24:00) Specific [place] Urine Dipstick: <=1.005 (07/05/23 15:24:00) Urine Appearance Urine Dipst (more content not included)... Normal [facility] Comment on above: Result Comment: Elec tronically Signed By: XIMENA SCALES PA-C\.br\Date and Time Signed: 07/05/23 16:45 EDT\.br\Electronically Co-Signed By: Ailin Dubose\.br\Date and Time Co-Signed: 07/05/23 15:48 EDT [facility] - MIS [id number] 0TIFF [facility] Patient Educationon 06-13-20 Patient Education Nephrology Dietary [...] ? 8 oz (237 mL) of milk, bqcgwjz-viyxsdhekcmo-j airy milk, and calcium-fortifiedfruit juice. Calcium-fortified means [...] Spinach (cooked), rhubarb, beets, sweet potatoes, and Salvadorean chard. ? Peanuts. ? Potato chips, ghanaian fries, and baked potatoes with skin on. ? Nuts and nut products. ? Chocolate. ? If you regularly take a diuretic medicine, make sure to eat at least 1 or 2 servings of fruits or vegetables that are high in potassium each day. These include: ? Avocado. ? Banana. ? [place], prune, carrot, or tomato juice. ? Baked [...] fish oil, or vitamin B6. ? Take tpmi-vug-luygelk and prescription medicines only as told by your health care provider. These include supplements. What foods should I limit? Limit your in (more content not included)... Normal [facility] XR foot LT min 3V*on 023 XR foot LT min 3V* [facility] [address] [place] [address] XRay Report Signed Patient: Lul Britton MR#: [id number] 6 : 1985 Acct:[id number] Age/Sex: 37 / F ADM Date: 03/06/23 Loc: XDUCLY Room: Type: [facility] Attending Dr: Leana Soler APRN Copies [...] Selena Thomson M.D.03/06/2023 2:30 PM Dictation Location: [place] [address] Transcribed By: [facility] 03/06/23 1430 Dictated By: Selena Thomson MD 03/06/23 1429 Signed By: 03/06/23 1430 Normal [facility] XR foot LT min 3V* [facility] [email or web address] Other XR foot LT min 3V* [facility] [email or web address] Other XR foot LT min 3V* [address] [place] [address] [email or web address] Other XR foot LT min 3V* [place] [address] [facility] [email or web address] Other XR foot LT min 3V* XRay Report [facility] [email or web address] Other XR foot LT min 3V* Signed [facility] [email or web address] Other XR foot LT min 3V* Patient: Lul Britton MR#: [id number] [employer] Other XR foot LT min 3V* 6 [employer] Other XR foot LT min 3V* : 1985 Acct:[id number] [employer] Other XR foot LT min 3V* Age/Sex: 37 / F ADM Date: 03/06/23 [employer] Other XR foot LT min 3V* Loc: XDUCLY Room: Type: [facility] [employer] Other XR foot LT min 3V* Attending Dr: Leana Soler [facility] [employer] Other XR foot LT min 3V* Copies to: Leana Soler [facility] [employer] Other XR foot LT min 3V* Ordering Provider: Leana Soler [facility] [employer] Other XR foot LT min 3V* Date of Service: 03/06/23 [employer] Other XR foot LT min 3V* XR/XR foot LT min 3V*: M79.672 [employer] Other XR foot LT min 3V* LEFT FOOT - 3 views [employer] Other XR foot LT min 3V* CLINICAL DATA: Dorsa l foot pain for the past 5 days. No injury [employer] Other XR foot LT min 3V* COMPARISON: None [employer] Other XR foot LT min 3V* AP, lateral and oblique views were obtained. There is no evidence of fracture or dislocation. [employer] Other XR foot LT min 3V* There are posterior and plantar calcaneal spurs. There is soft tissue swelling over the dorsum of [employer] Other XR foot LT min 3V* foot. The soft tissu es of the ankle are also prominent. [employer] Other XR foot LT min 3V* XR/XR foot LT min 3V* [employer] Other XR foot LT min 3V* IMPRESSION: [employer] Other XR foot LT min 3V* NO ACUTE BONY FINDINGS. [employer] Other XR foot LT min 3V* Impression dictated by: Selena Thomson M.D.03/06/2023 2:30 PM [employer] Other XR foot LT min 3V* Dictation Location: [place] [address] [employer] Other XR foot LT min 3V* Transcribed By: [facility] 03/06/23 1430 [employer] Other XR foot LT min 3V* Dictated By: Selena Thomson MD 03/06/23 1429 [employer] Other XR foot LT min 3V* Signed By: [employer] Other XR foot LT min 3V* 03/06/[address] [place] [address] [employer] Other CITRATE URINE 24HRon 023 Citric Acid, U, 24hr 410 mg/24 hr Normal 320-1240 [facility] Comment on above: Result Comment: This test was developed and its performance characteristics determined by [employer]. It has not been cleared or approved by the Food and Drug Administration. Performed By: #### O X24HR #### [facility] [address] [place] [address] [address] Neil Krishnamurthy Citric Acid, Urine 200 mg/L Normal Undefined [facility] Comment on above: Performed By: #### O X24HR #### [facility] [address] [place] [address] [address] Neil Krishnamurthy OXALATE 24HR URINEon 023 Oxalates, Urine 7 mg/L Normal Undefined [facility] Comment on above: Performed By: #### O X24HR #### [facility] [address] [place] [address] [address] Neil Krishnamurthy Oxalates, Urine 24hr 14 mg/24 hr Normal 4-31 [facility] Comment on above: Performed By: #### O X24HR #### [facility] [address] [place] [address] [address] Neil Krishnamurthy MAGNESIUM 24HR URINEon 12-07 Magnesium 24hr Urine 116.9 mg/24 hr Normal 12.0-293.0 [facility] Comment on above: Performed By: #### C O2, CL, BUN, CREA, URIC, K, CA, NA #### [facility] [address] [place] [address] Dr. Neil Krishnamurthy Magnesium UR 5.7 mg/dL Normal Not Estab. [facility] Comment on above: Performed By: #### C O2, CL, BUN, CREA, URIC, K, CA, NA #### [facility] [address] [place] [address] [address] Neil Krishnamurthy PHOSPHORUS 24HR URINEon 11-18 Phosphorus, Urine 56.6 mg/dL Normal Not Estab. The [facility] Comment on above: Performed By: #### O X24HR #### [facility] [address] [place] [address] [address] Neil Krishnamurthy Phosphorus, Urine 24hr 1160 mg/24 hr Critically high 261-1078 [facility] Comment on above: Performed By: #### O X24HR #### [facility] [address] [place] [address] [address] Neil Krishnamurthy PTH INTACTon 12-07-2022 PTH, Intact 41 pg/mL Normal 15-65 [facility] Comment on above: Performed By: #### O X24HR #### [facility] [address] [place] [address] [address] Neil Krishnamurthy URIC ACID 24 HR URINEon 11-18 Uric Acid, Urine 23.4 mg/dL Normal Not Estab. The [facility] Comment on above: Performed By: #### O X24HR #### [facility] [address] [place] [address] Dr. Neil Krishnamurthy Uric Acid, Urine 24hr 479.7 mg/24 hr Normal 173.7-902.1 [facility] Comment on above: Performed By: #### O X24HR #### [facility] [address] [place] [address] Dr. Neil Krishnamurthy BUNon 12-06-2022 Urea nitrogen [Mass/Vol] 12.0 mg/dL Normal 7.0-18.0 [facility] Comment on above: Performed By: #### C O2, CL, BUN, CREA, URIC, K, CA, NA #### [facility] [address] [place] [address] Dr. Neil Krishnamurthy CALCIUMon 12-06-2022 Calcium [Mass/Vol] 8.6 mg/dL Normal 8.5-10.1 [facility] Comment on above: Performed By: #### O X24HR #### [facility] [address] [place] [address] Dr. Neil Krishnamurthy CALCIUM 24 HR URINEon 2022 CALC, 24 HR UR 479.7 mg/24 hr Critically high 100.0-300.0 [facility] Comment on above: Performed By: #### V AGINT #### [facility] [address] [place] [address] Dr. Neil Krishnamurthy UR CALCIUM 23.4 mg/dL Critically high 5.1-21.0 [facility] Comment on above: Performed By: #### V AGINT #### [facility] [address] [place] [address] Dr. Neil Krishnamurthy UR TOT VOL 2050 ml/24 HR Normal [facility] Comment on above: Performed By: #### V AGINT #### [facility] [address] [place] [address] Dr. Neil Krishnamurthy Performed By: #### C O2, CL, BUN, CREA, URIC, K, CA, NA #### [facility] [address] [place] [address] Dr. Neil Krishnamurthy CHLORIDEon 12-06-2022 Chloride [Moles/Vol] 106 mmol/L Normal 98-107 [facility] Comment on above: Performed By: #### C O2, CL, BUN, CREA, URIC, K, CA, NA #### [facility] [address] [place] [address] [address] Neil Krishnamurthy CO2on 12-06-2022 CO2 [Moles/Vol] 25.7 mmol/L Normal 21.0-32.0 [facility] Comment on above: Performed By: #### C O2, CL, BUN, CREA, URIC, K, CA, NA #### [facility] [address] [place] [address] Dr. Neil Krishnamurthy CREA 24 HR URINEon CREA, 24 HR UR 1371.04 mg/24 hr Normal 800.00-1, 800. 00 [facility] Comment on above: Performed By: #### C O2, CL, BUN, CREA, URIC, K, CA, NA #### [facility] [address] [place] [address] Dr. Neil Krishnamurthy URINE CREAT 66.88 mg/dL Normal 20.00-300.[address] [facility] Comment on above: Performed By: #### C O2, CL, BUN, CREA, URIC, K, CA, NA #### [facility] [address] [place] [address] Dr. Neil Krishnamurthy CREATININEon 12-06-2022 Creatinine [Mass/Vol] 0.78 mg/dL Normal 0.55-1.02 [facility] Comment on above: Performed By: #### C O2, CL, BUN, CREA, URIC, K, CA, NA #### [facility] [address] [place] [address] Dr. Neil Krishnamurthy EGFR-AF MACANESE >60 Normal >=60 The [facility] Comment on above: Performed By: #### C O2, CL, BUN, CREA, URIC, K, CA, NA #### [facility] [address] [place] [address] Dr. Neil Krishnamurthy EGFR-NON AF MACANESE >60 Normal >=60 [facility] Comment on above: Performed By: #### C O2, CL, BUN, CREA, URIC, K, CA, NA #### [facility] [address] [place] [address] Dr. Neil Krishnamurthy NAon 12-06-2022 Sodium [Moles/Vol] 139 mmol/L Normal 136-145 [facility] Comment on above: Performed By: #### C O2, CL, BUN, CREA, URIC, K, CA, NA #### [facility] [address] [place] [address] Dr. Neil Krishnamurthy POTASSIUMon 12-06-2022 Potassium [Moles/Vol] 4.1 mmol/L Normal 3.5-5.1 [facility] Comment on above: Performed By: #### C O2, CL, BUN, CREA, URIC, K, CA, NA #### [facility] [address] [place] [address] Dr. Neil Krishnamurthy SODIUM 24 HR URINEon 023 NA, 24 HR UR 211 mmol/24 hr Normal 40-220 [facility] Comment on above: Performed By: #### C O2, CL, BUN, CREA, URIC, K, CA, NA #### [facility] [address] [place] [address] Dr. Neil Krishnamurthy Sodium (U) [Moles/Vol] 103 mmol/L Critically high 30-90 [facility] Comment on above: Performed By: #### C O2, CL, BUN, CREA, URIC, K, CA, NA #### [facility] [address] [place] [address] Dr. Neil Krishnamurthy URIC ACID SERUMon 12-06-2022 Urate [Mass/Vol] 5.0 mg/dL Normal 2.6-6.0 [facility] Comment on above: Performed By: #### C O2, CL, BUN, CREA, URIC, K, CA, NA #### [facility] [address] [place] [address] Dr. Neil Krishnamurthy ECHOCARDIO M/2D COMPLETEon 0 11-17-2022 ECHOCARDIO M/2D COMPLETE Patient: LUL BRITTON Exam Date: 11/17/2022 : 1985 Gender:F Ordering : DR ABDOUL ALBERTO . Admission #: [id number] Family : Order #: [id number] CLICK HERE TO VIEW EXAM ECHOCARDIOGRAM REPORT [...] Onofre M.D. on 11/18/2022 at 09:50 Normal [facility] US PELVIS AND TRANSVAGon US [...] by: RIC QUEZADA Date: 2022-11-01 07:20 Normal [facility] XR RIBS RT PA Karl 3 XR RIBS RT PA CH EXAMINATION: XR [...] RIC QUEZADA Date: 2022-11-01 07:12 Normal [facility] XR TSPINE MIN 4 VIEWSon 10-20 [...] by: RIC QUEZADA Date: 2022-11-01 07:09 Normal [facility] CREATININEon 10-12-2022 Creatinine [Mass/Vol] 0.91 mg/dL Normal 0.55-1.02 [facility] Comment on above: Performed By: #### O X24HR #### [facility] [address] [place] [address] Dr. Neil Krishnamurthy EGFR-AF MACANESE >60 Normal >=60 [facility] Comment on above: Performed By: #### O X24HR #### [facility] [address] [place] [address] Dr. Neil Krishnamurthy EGFR-NON AF MACANESE >60 Normal >=60 [facility] Comment on above: Performed By: #### O X24HR #### [facility] [address] [place] [address] Dr. Neil Krishnamurthy XR IVPon 10-12-2022 XR IVP EXAMINATION: XR IVP HISTORY: Kidney stone COMPARISON: No relevant comparison available. TECHNIQUE: After obtaining patient consent a tool pusher image was obtained followed by injection of [...] by: RIC QUEZADA Date: 2022-10-12 09:48 Normal [facility] XR KUB 1 VIEWon 10-05-2022 XR KUB [...] by: RIC QUEZADA Date: 2022-10-05 07:35 Normal [facility] COVID/FLU RT-PCRon 2 SARS-CoV-2 (COVID-19) RNA BRANDIE+probe Ql (Unsp spec) Negative [employer] Other COVID/FLU RT-PCR Negative [facility] [email or web address] Other XR KUB 1 VIEWon 08-30-2022 XR [...] by: RIC QUEZADA Date: 2022-08-30 07:28 Normal [facility] CBC AUTO DIFFon 07-13-2022 BASO # 0.0 103/ul Normal 0.0-0.1 [facility] Comment on above: Performed By: #### V AGINT #### [facility] [address] [place] [address] [address] Neil Krishnamurthy Basophils/100 WBC (Bld) 0.5 % Normal 0.2-2.0 [facility] Comment on above: Performed By: #### V AGINT #### [facility] [address] [place] [address] [address] Neil Krishnamurthy EO # 0.2 103/ul Normal 0.0-0.7 [facility] Comment on above: Performed By: #### V AGINT #### [facility] [address] [place] [address] Dr. Neil Krishnamurthy Eosinophils/100 WBC (Bld) 1.9 % Normal 0.9-7.0 [facility] Comment on above: Performed By: #### V AGINT #### [facility] [address] [place] [address] Dr. Neil Krishnamurthy Erythrocyte distribution width (RBC) [Ratio] 11.7 % Normal 11.0-15.0 [facility] Comment on above: Performed By: #### V AGINT #### [facility] [address] [place] [address] Dr. Neil Krishnamurthy Hematocrit (Bld) [Volume fraction] 41.1 % Normal 36.0-48.0 [facility] Comment on above: Performed By: #### V AGINT #### [facility] [address] [place] [address] Dr. Neil Krishnamurthy Hemoglobin (Bld) [Mass/Vol] 13.7 g/dL Normal 12.0-16.0 [facility] Comment on above: Performed By: #### V AGINT #### [facility] [address] [place] [address] Dr. Neil Krishnamurthy IG # 0.03 10e3/ul Normal 0.00-0.03 [facility] Comment on above: Performed By: #### V AGINT #### [facility] [address] [place] [address] Dr. Neil Krishnamurthy IG % 0.4 % Normal 0.0-0.5 [facility] Comment on above: Performed By: #### V AGINT #### [facility] [address] [place] [address] [address] Neil Krishnamurthy LYMPH # 2.8 103/ul Normal 1.2-3.8 [facility] Comment on above: Performed By: #### V AGINT #### [facility] [address] [place] [address] [address] Neil Krishnamurthy Lymphocytes/100 WBC (Bld) 32.9 % Normal 20.5-60.0 [facility] Comment on above: Performed By: #### V AGINT #### [facility] [address] [place] [address] Dr. Neil Krishnamurthy MANUAL DIFF REQ NO Normal [facility] Comment on above: Performed By: #### V AGINT #### [facility] [address] [place] [address] Dr. Neil Krishnamurthy MCH (RBC) [Entitic mass] 30.4 pg Normal 26.7-34.0 [facility] Comment on above: Performed By: #### V AGINT #### [facility] [address] [place] [address] Dr. Neil Krishnamurthy MCHC (RBC) [Mass/Vol] 33.3 g/dL Normal 29.9-35.2 [facility] Comment on above: Performed By: #### V AGINT #### [facility] [address] [place] [address] Dr. Neil Krishnamurthy MCV (RBC) [Entitic vol] 91.3 fL Normal 81.0-99.0 [facility] Comment on above: Performed By: #### V AGINT #### [facility] [address] [place] [address] Dr. Neil Krishnamurthy MONO # 0.7 103/ul Normal 0.3-0.8 [facility] Comment on above: Performed By: #### V AGINT #### [facility] Laboratory [address] [place] [address] Dr. Neil Krishnamurthy Monocytes/100 WBC (Bld) 8.0 % Normal 1.7-12.0 [facility] Comment on above: Performed By: #### V AGINT #### [facility] [address] [address] [address] Neil Krishnamurthy NEUT # 4.8 103/ul Normal 1.4-6.5 [facility] Comment on above: Performed By: #### V AGINT #### [facility] [address] [address] [address] Neil Krishnamurthy Neutrophils/100 WBC (Bld) 56.3 % Normal 43.0-75.0 [facility] Comment on above: Performed By: #### V AGINT #### [facility] [address] [address] [address] Neil Krishnamurthy Platelet mean volume (Bld) [Entitic vol] 11.0 fL Normal 9.5-13.5 [facility] Comment on above: Performed By: #### V AGINT #### [facility] [address] [place] [address] Dr. Neil Krishnamurthy PLT 242 103/ul Normal 150-450 [facility] Comment on above: Performed By: #### V AGINT #### [facility] [address] [place] [address] Dr. Neil Krishnamurthy RBC 4.50 106/ul Normal 4.20-5.40 [facility] Comment on above: Performed By: #### V AGINT #### [facility] [address] [place] [address] Dr. Neil Krishnamurthy WBC 8.5 103/ul Normal 4.0-11.0 [facility] Comment on above: Performed By: #### V AGINT #### [facility] [address] [place] [address] Dr. Neil Krishnamurthy GLYCOHEMOGLOBIN A1Con 2021 ADA RECOMMENDATION SEE BELOW Normal [facility] Comment on above: Result Comment: ADA RECOMMENDED LIMIT 4.0 - 6.0 ADA THERAPEUTIC TARGET < 7.0 ACTION SUGGESTED > 7.0 Performed By: #### V AGINT #### [facility] [address] [place] [address] Dr. Neil Krishnamurthy Glucose [Mass/Vol] 97 mg/dL Normal [facility] Comment on above: Performed By: #### V AGINT #### [facility] [address] [address] [address] Neil Krishnamurthy HbA1c (Bld) [Mass fraction] 5.0 % Normal 4.5-6.2 [facility] Comment on above: Performed By: #### V AGINT #### [facility] [address] [address] [address] Neil Krishnamurthy LIPID PROFILEon 07-13-2022 CHOL-HDL RATIO NORM SEE BELOW Normal [facility] Comment on above: Result Comment: 3.3 - 4.4 LOW RISK 4.4 - 7.1 AVERAGE RISK 7.1 - 11.0 MODERATE RISK >11.0 HIGH RISK Performed By: #### O X24HR #### [facility] [address] [place] [address] Dr. Neil Krishnamurthy Cholesterol [Mass/Vol] 157 mg/dL Normal <=200 [facility] Comment on above: Performed By: #### O X24HR #### [facility] [address] [address] [address] Neil Krishnamurthy Cholesterol in HDL [Mass/Vol] 50 mg/dL Normal 40-60 [facility] Comment on above: Performed By: #### O X24HR #### [facility] [address] [address] [address] Neil Krishnamurthy Cholesterol in LDL [Mass/Vol] 79.4 mg/dL Normal [facility] Comment on above: Performed By: #### O X24HR #### [facility] [address] [address] [address] Neil Krishnamurthy Cholesterol.total/C holesterol in HDL [Mass ratio] 3.1 {ratio} Normal [facility] Comment on above: Performed By: #### O X24HR #### [facility] [address] [address] [address] Neil Krishnamurthy HDL NORMAL > or = 60 mg/dl - LO W CARDIOVASCULAR RISK <40 mg/dl - HIGH CARDIOVASCULAR RISK Normal [facility] Comment on above: Performed By: #### O X24HR #### [facility] [address] [address] [address] Neil Krishnamurthy LDL CALC NORMAL SEE BELOW Normal [facility] Comment on above: Result Comment: <100 mg/dl OPTIMAL 100 - 129 mg/dl NEAR OR ABOVE OPTIMAL 130 - 159 mg/dl BORDERLINE HIGH 160 - 189 mg/dl HIGH >190 mg/dl VERY HIGH Performed By: #### O X24HR #### [facility] [address] [address] [address] Neil Krishnamurthy Triglyceride [Mass/Vol] 138 mg/dL Normal <=150 [facility] Comment on above: Performed By: #### O X24HR #### [facility] [address] [place] [address] Dr. Neil Krishnamurthy VLDL CALC 27.6 mg/dL Normal [facility] Comment on above: Performed By: #### O X24HR #### [facility] [address] [place] [address] Dr. Neil Krishnamurthy LIVER PROFILEon 07-13-2022 Albumin [Mass/Vol] 3.5 g/dL Normal 3.4-5.0 [facility] Comment on above: Performed By: #### O X24HR #### [facility] [address] [place] [address] Dr. Neil Krishnamurthy Albumin/Globulin [Mass ratio] 1.0 {ratio} Normal [facility] Comment on above: Performed By: #### O X24HR #### [facility] [address] [place] [address] Dr. Neil Krishnamurthy ALP [Catalytic activity/Vol] 83 U/L Normal 46-116 [facility] Comment on above: Performed By: #### O X24HR #### [facility] [address] [address] [address] Neil Krishnamurthy ALT [Catalytic activity/Vol] 19 U/L Normal 14-59 [facility] Comment on above: Performed By: #### O X24HR #### [facility] [address] [address] [address] Neil Krishnamurthy AST [Catalytic activity/Vol] 15 U/L Normal 15-37 [facility] Comment on above: Performed By: #### O X24HR #### [facility] [address] [place] [address] Dr. Neil Krishnamurthy BILI, CONJUGATED 0.1 mg/dL Normal 0.0-0.2 [facility] Comment on above: Performed By: #### O X24HR #### [facility] [address] [place] [address] Dr. Neil Krishnamurthy Bilirubin [Mass/Vol] 0.6 mg/dL Normal 0.2-1.0 [facility] Comment on above: Performed By: #### O X24HR #### [facility] [address] [place] [address] Dr. Neil Krishnamurthy Globulin (S) [Mass/Vol] 3.5 g/dL Normal [facility] Comment on above: Performed By: #### O X24HR #### [facility] [address] [place] [address] Dr. Neil Krishnamurthy Protein [Mass/Vol] 7.0 g/dL Normal 6.4-8.2 [facility] Comment on above: Performed By: #### O X24HR #### [facility] [address] [place] [address] Dr. Neil Krishnamurthy PROF CHEM 8 (BAS METB)on Anion gap [Moles/Vol] 10.8 mmol/L Normal [facility] Comment on above: Performed By: #### O X24HR #### [facility] [address] [place] [address] Dr. Neil Krishnamurthy Calcium [Mass/Vol] 8.2 mg/dL Critically low 8.5-10.1 Th [facility] Comment on above: Performed By: #### O X24HR #### [facility] [address] [place] [address] Dr. Neil Krishnamurthy Chloride [Moles/Vol] 105 mmol/L Normal 98-107 [facility] Comment on above: Performed By: #### O X24HR #### [facility] [address] [place] [address] Dr. Neil Krishnamurthy CO2 [Moles/Vol] 24.5 mmol/L Normal 21.0-32.0 [facility] Comment on above: Performed By: #### O X24HR #### [facility] [address] [place] [address] Dr. Neil Krishnamurthy Creatinine [Mass/Vol] 0.74 mg/dL Normal 0.55-1.02 [facility] Comment on above: Performed By: #### O X24HR #### [facility] [address] [place] [address] Dr. Neil Krishnamurthy EGFR-AF MACANESE >60 Normal >=60 [facility] Comment on above: Performed By: #### O X24HR #### [facility] [address] [place] [address] Dr. Neil Krishnamurthy EGFR-NON AF MACANESE >60 Normal >=60 [facility] Comment on above: Performed By: #### O X24HR #### [facility] [address] [place] [address] Dr. Neil Krishnamurthy Glucose [Mass/Vol] 106 mg/dL Normal 74-106 [facility] Comment on above: Performed By: #### O X24HR #### [facility] [address] [place] [address] Dr. Neil Krishnamurthy Potassium [Moles/Vol] 3.5 mmol/L Normal 3.5-5.1 [facility] Comment on above: Performed By: #### O X24HR #### [facility] [address] [place] [address] Dr. Neil Krishnamurthy Sodium [Moles/Vol] 137 mmol/L Normal 136-145 [facility] Comment on above: Performed By: #### O X24HR #### [facility] [address] [place] [address] Dr. Neil Krishnamurthy Urea nitrogen [Mass/Vol] 11.0 mg/dL Normal 7.0-18.0 [facility] Comment on above: Performed By: #### O X24HR #### [facility] [address] [place] [address] Dr. Neil Krishnamurthy Urea nitrogen/Creatinine [Mass ratio] 14.8 mg/mg Normal [facility] Comment on above: Performed By: #### O X24HR #### [facility] [address] [place] [address] Dr. Neil Krishnamurthy TSHon 07-13-2022 TSH 1.166 uIU/mL Normal 0.358-3.740 [facility] Comment on above: Performed By: #### O X24HR #### [facility] [address] [address] [address] Neil Krishnamurthy VITAMIN D 25 OHon 07-13-2022 VIT D 25-OH 23.8 ng/mL Normal [facility] Comment on above: Performed By: #### V ITAD #### [facility] [address] [place] [address] Dr. Neil Krishnamurthy VIT D RANGES SEE BELOW Normal [facility] Comment on above: Result Comment: <20 ng/mL Vit D deficient 20 - <30 ng/mL Vit D insufficient 30 - 100 ng/mL Vit D sufficient >100 ng/mL Potential Toxicity Performed By: #### V ITAD #### [facility] [address] [place] [address] Dr. Neil Krishnamurthy MG MAMM SCREEN 3D MARKEL CADon 06-23-2022 MG MAMM SCREEN 3D MARKEL CAD Patient: LUL BRITTON Exam Date: 06/23/2022 : 1985 Gender:F Ordering : DR KATHY BARRAGAN . Admission #: [id number] Family : Order #: [id number] CLICK HERE TO VIEW EXAM RADIOLOGY REPORT [...] cervical cancer at age 31. LOCATION: [facility] BREAST COMPOSITION: Heterogeneously dense,which may obscure [...] Quezada MD on 06/23/2022 at 11:17 Normal [facility] PAP ACOG PANEL 2: 30 to 65on 06-16-2022 . . Normal [facility] Comment on above: Result Comment: Perf ormed at: WB Performed By: #### C O2, CL, BUN, CREA, URIC, K, CA, NA #### [facility] [address] [address] [address] Neil Krishnamurthy Age Gdln ACOG Testing 30-65 Normal [facility] Comment on above: Performed By: #### C O2, CL, BUN, CREA, URIC, K, CA, NA #### [facility] [address] [address] [address] Neil Krishnamurthy DIAGNOSIS: Comment Normal [facility] Comment on above: Result Comment: NEGA TIVE FOR INTRAEPITHELIAL LESION OR MALIGNANCY. Performed at: WB Performed By: #### C O2, CL, BUN, CREA, URIC, K, CA, NA #### [facility] [address] [address] [address] Neil Krishnamurthy HPV Aptima Negative Normal Negative [facility] Comment on above: Result Comment: This nucleic acid amplification test detects fourteen high-risk HPV types (16,18,31,33,35,39,45,51,52,56,58,59,66,68) without differentiation. Performed at: =G Performed By: #### C O2, CL, BUN, CREA, URIC, K, CA, NA #### [facility] [address] [address] [address] Neil Krishnamurthy Methodology: Comment Normal [facility] Comment on above: Result Comment: This liquid based ThinPrep(R) pap test was screened with the use of an image guided system. Performed at: WB Performed By: #### C O2, CL, BUN, CREA, URIC, K, CA, NA #### [facility] [address] [address] [address] Neil Krishnamurthy Note: Comment Normal [facility] Comment on above: Result Comment: [...] BUN, CREA, URIC, K, CA, NA #### [facility] [address] [address] [address] Neil Krishnamurthy Performed by: Comment Normal [facility] Comment on above: Result Comment: Fang Song, [employer] Professor (ASCP) Performed at: WB Performed By: #### C O2, CL, BUN, CREA, URIC, K, CA, NA #### [facility] [address] [address] [address] Neil Krishnamurthy Specimen adequacy: Comment Normal [facility] Comment on above: Result Comment: Sati sfactory for evaluation. Endocervical and/or squamous metaplastic cells (endocervical component) are present. Performed at: WB Performed By: #### C O2, CL, BUN, CREA, URIC, K, CA, NA #### [facility] [address] [address] [address] Neil Krishnamurthy VAGINITIS/VAGINOSIS DNA PROB Jovi 06-03-2022 Rachel species Negative Normal Negative [facility] Comment on above: Performed By: #### V AGINT #### [facility] [address] [address] [address] Neil Krishnamurthy Gardnerella vaginalis Positive Abnormal Negative [facility] Comment on above: Performed By: #### V AGINT #### [facility] [address] [address] [address] Neil Krishnamurthy Trichomonas vaginalis Negative Normal Negative [facility] Comment on above: Performed By: #### V AGINT #### [facility] [address] [place] [address] Dr. Neil Krishnamurthy COVSABAS Quick Testingon 2020 Result Positive [facility] Other XR ABDOMEN LIMITED (KUB)on XR ABDOMEN LIMITED (KUB) EXAMINATION:SUPINE VIEW(S) OF THE TSTOVPJ8207/08/2017 1:38 pmCOMPARISON:October 19, 2010HISTORY:ORDERING SYSTEM PROVIDED HISTORY: [...] by:TIMBO Menendezigned by:Raheel Morales MD07/08/17Final result Normal [facility] Vital Signs Date Time Vital Sign Value Performing Clinician Facility 09-22-2023 12:00-0500 Body height 152.4 cm Elisabeth aM Other [facility] Other 09-22-2023 12:00-0500 Body mass index (BMI) [Ratio] 41.87 kg/m2 Elisabeth Ma Other [facility] Other 09-22-2023 12:00-0500 Body temperature 97.7 [degF] Elisabeth Ma Other [facility] Other 09-22-2023 12:00-0500 Body weight 97.25 kg Elisabeth Ma Other [facility] Other 09-22-2023 12:00-0500 Diastolic blood pressure 86 mm[Hg] Elisabeth Ma Other [facility] Other 09-22-2023 12:00-0500 Respiratory rate 18 /min Elisabeth Ma Other [facility] Other 09-22-2023 12:00-0500 SaO2% (BldA) [Mass fraction] 99 % Elisabeth Ma Other [facility] Other 09-22-2023 12:00-0500 Systolic blood pressure 124 mm[Hg] Elisabeth Ma Other [facility] Other 03-06-2023 13:50-0400 Body height 152.4 cm Leana Soler Other [facility] Other 03-06-2023 13:50-0400 Body mass index (BMI) [Ratio] 42.3 kg/m2 Leana Soler Other [facility] Other 03-06-2023 13:50-0400 Body temperature 98.2 [degF] Leana Soler Other [facility] Other 03-06-2023 13:50-0400 Body weight 98.25 kg Leana Soler Other [facility] Other 03-06-2023 13:50-0400 Diastolic blood pressure 76 mm[Hg] Leana Soler Other [facility] Other 03-06-2023 13:50-0400 Respiratory rate 18 /min Leana Soler Other [facility] Other 03-06-2023 13:50-0400 SaO2% (BldA) [Mass fraction] 100 % Leana Soler Other [facility] Other 03-06-2023 13:50-0400 Systolic blood pressure 111 mm[Hg] Leana Soler Other [facility] Other 09-01-2022 17:15-0500 Body height 152.4 cm Jennyfer Ruiz Other [facility] Other 09-01-2022 17:15-0500 Body mass index (BMI) [Ratio] 41.98 kg/m2 Jennyfer Ruiz Other [facility] Other 09-01-2022 17:15-0500 Body temperature 98.4 [degF] Jennyfer Ruiz Other [facility] Other 09-01-2022 17:15-0500 Body weight 97.52 kg Jennyfer Ruiz Other [facility] Other 09-01-2022 17:15-0500 Respiratory rate 18 /min Jennyfer Ruiz Other [facility] Other 09-01-2022 17:15-0500 SaO2% (BldA) [Mass fraction] 99 % Jennyfer Ruiz Other [facility] Other 04-22-2022 14:30-0400 Body height 152.4 cm Jessenia Ortiz Other [facility] Other 04-22-2022 14:30-0400 Body mass index (BMI) [Ratio] 40.42 kg/m2 Jessenia Ortiz Other [facility] Other 04-22-2022 14:30-0400 Body weight 93.9 kg Jessenia Ortiz Other [facility] Other 04-22-2022 14:30-0400 Diastolic blood pressure 89 mm[Hg] Jessenia Ortiz Other [facility] Other 04-22-2022 14:30-0400 Respiratory rate 18 /min Jessenia Ortiz Other [facility] Other 04-22-2022 14:30-0400 SaO2% (BldA) [Mass fraction] 100 % Jessenia Ortiz Other [facility] Other 04-22-2022 14:30-0400 Systolic blood pressure 116 mm[Hg] Jessenia Ortiz Other [facility] Other 07-22-2021 11:00-0400 Body height 152.4 cm Jennyfer Maravillamond Other [facility] Other 07-22-2021 11:00-0400 Body mass index (BMI) [Ratio] 38.08 kg/m2 Jennyfer Maravillamond Other [facility] Other 07-22-2021 11:00-0400 Body temperature 96.2 [degF] Jennyfer Maravillamond Other [facility] Other 07-22-2021 11:00-0400 Body weight 88.45 kg Jennyfer Maravillamond Other [facility] Other 07-22-2021 11:00-0400 Respiratory rate 18 /min Jennyfer Maravillamond Other [facility] Other 07-22-2021 11:00-0400 SaO2% (BldA) [Mass fraction] 99 % Jennyfer Sara Other [facility] Other Encounters Encounter Date Encounter Type Care Provider Facility Start: 05-14-2024 End: 05-14-2024 ambulatory [facility] Ambulatory Start: 05-07-2024 End: 05-07-2024 ambulatory [facility] Start: 04-16-2024 End: 04-16-2024 ambulatory Joanne Cameron MD Facility:[facility] Start: 03-26-2024 End: 03-26-2024 ambulatory ABDOUL NADERER Not Available Start: 03-15-2024 End: 03-15-2024 ambulatory [facility] Ambulatory Start: 02-21-2024 End: 02-21-2024 ambulatory LIN Chen TIMMIS Not Available Start: 02-17-2024 End: 02-17-2024 ambulatory Lin H Timmis Facility[facility] Start: 02-17-2024 End: 02-17-2024 Patient encounter procedure Lin H Timmis [facility] Start: 01-16-2024 End: 01-16-2024 ambulatory LIN H TIMMIS Not Available Start: 12-20-2023 End: 12-20-2023 ambulatory ABDOUL NADERER Not Available Start: 10-04-2023 End: 10-04-2023 ambulatory ABDOUL NADERER Not Available Start: 09-22-2023 End: 09-22-2023 ambulatory Elisabeth Ma Other [employer] Other Start: 09-22-2023 Office outpatient vi sit 15 minutes Elisabeth Ma [facility] Start: 09-05-2023 End: 09-05-2023 ambulatory Joanne Cameron MD Facility:[facility] Start: 08-15-2023 End: 08-15-2023 ambulatory Joanne Cameron MD Facility:[facility] Start: 07-05-2023 End: 07-05-2023 ambulatory XIMENA SCALES Facility:[facility] Start: 07-05-2023 End: 07-05-2023 Patient encounter procedure XIMENA SCALES [facility] Start: 03-06-2023 End: 03-06-2023 Patient encounter procedure POTATO CHIP FRYER Leana Soler Work Phone: [facility] Work Phone: Start: 03-06-2023 End: 03-06-2023 ambulatory Leana Soler [facility] Other Start: 03-06-2023 Office outpatient vi sit 15 minutes Leana Soler [facility] Start: 12-06-2022 End: 12-07-[address] ISRA CHAN . Facility: Start: 11-17-2022 End: 11-18-[address] ABDOUL ALBERTO Facility:[facility] Start: 11-01-2022 End: 12-11-[address] ABDOUL ALBERTO Facility:[facility] Start: 10-30-2022 End: 10-31-[address] ABDOUL ALBERTO Facility:[facility] Start: 10-12-2022 End: 10-13-[address] ABDOUL ALBERTO Facility:[facility] Start: 10-04-2022 End: 10-04-2022 Patient encounter procedure Isra CHAN [facility] Start: 10-02-2022 End: 10-03-[address] ISRA CHAN . Facility:[facility] Start: 09-01-2022 End: 09-01-2022 ambulatory Jennyfer Ruiz Other [facility] Other Start: 09-01-2022 Office outpatient vi sit 15 minutes Jennyfer Ruiz [facility] Start: 08-27-2022 End: 08-28-[address] RIC QUEZADA Facility:[facility] Start: 07-18-2022 Encounter for genera l adult medical examination without abnormal findings DR ABDOUL ALBERTO [facility] Start: 07-13-2022 End: [address] ABDOUL ALBERTO Facility:[facility] Start: 07-13-2022 End: 2022 Encounter for general adult medical examination without abnormal findings DR ABDOUL ALBERTO Facility:[facility] Start: 06-23-2022 End: 06-24-[address] KATHY BARRAGAN . Facility:[facility] Start: 06-09-2022 End: 06-09-[address] KATHY BARRAGAN . Facility:[facility] Start: 06-02-2022 End: 06-02-[address] DOCTOR GOODSON Facility:[facility] Start: 04-22-2022 End: 04-22-2022 ambulatory Jessenia Ortiz Other [facility] Other Start: 04-22-2022 Office outpatient vi sit 15 minutes Jessenia Ortiz [facility] Start: 07-22-2021 End: 07-22-2021 ambulatory Jennyfer Ruiz Other [facility] Other Start: 07-22-2021 Office outpatient vi sit 15 minutes Jennyfer Ruiz [facility] Start: 07-08-2017 End: 07-09-2017 Ambulatory MINGO SCHUMACHER [facility] Procedures Date Procedure Procedure Detail Performing Clinician Start: 03-06-2023 X-ray of left foot POTATO CHIP FRYER Leana Soler Work Phone: Start: 07-08-2017 X-ray exam of abdomen Quintin SCHUMACHER Appendectomy Isra CHAN Cholecystectomy Isra KAISER Colonoscopy Isra CHAN Hernia of abdominal cavity (disorder) Isra CHAN Ligation of fallopian tube P sabrina CHAN Lithotripsy Isra CHAN Plan of Treatment Date Care Activity Detail Author Start: 07-10-2024 ambulatory Ambulatory Facility:[facility] Immunizations Immunization Date Immunization Notes Care Provider Griselda adame 05-11-2010 tetanus toxoid, redu jose juan diphtheria toxoid, and acellular pertussis vaccine, adsorbed Isra CHAN [facility] 01-10-2007 varicella virus vaccine Patr jorje CHAN [facility] 12-07-2006 varicella virus vaccine Patr icchristiano CHAN [facility] 04-25-2006 hepatitis B vaccine, pediatric or pediatric/adolescent dosage Israissa CHAN [facility] 12-20-2005 hepatitis B vaccine, pediatric or pediatric/adolescent dosage Isra CHAN [facility] 11-15-2005 hepatitis B vaccine, pediatric or pediatric/adolescent dosage Israissa CAHN [facility] 03-10-1999 DTaP, unspecified formulation Isra CHAN [facility] 03-10-1999 measles, mumps and rubella virus vaccine Isra CHAN [facility] Payers Date Payer Category Payer Self-pay 2022 Medicaid [id number] 2022 Unknown 2017 Unknown [id number] 2.1 [id number] 1985 Unknown [id number] 2.16.84 0.1.139324.3.579.2.593 1985 Unknown [id number] 2.16.84 0.1.670878.3.579.2.593 1985 Unknown [id number] 2.16.84 0.1.167034.3.579.2.593 1985 Unknown [id number] 2.16.84 0.1.487906.3.579.2.593 1985 Unknown [id number] 2.16.84 0.1.133970.3.579.2.593 1985 Unknown [id number] 2.16.84 0.1.393175.3.579.2.593 1985 Unknown [id number] 2.16.84 0.1.252346.3.579.2.593 1985 Unknown [id number] 2.16.84 0.1.834383.3.579.2.593 1986 Unknown [id number] 2.16.84 0.1.377464.3.579.2.593 1985 Unknown [id number] 2.16.84 0.1.614077.3.579.2.593 1986 Unknown [id number] 2.16.84 0.1.683621.3.579.2.593 1986 Unknown [id number] 2.16.84 0.1.685958.3.579.2.1259 1986 Unknown [id number] 2.16.84 0.1.229019.3.579.2.1259 1986 Unknown [id number] 2.16.84 0.1.275364.3.579.2.1259 1986 Unknown [id number] 2.16.84 0.1.002133.3.579.2.1259 1986 Unknown [id number] 2.16.84 0.1.966883.3.579.2.1259 1986 Unknown [id number] 2.16. 840.1.688660.3.579.2.196 1985 Unknown [id number] 2.16. 840.1.047226.3.579.2.196 1986 Unknown [id number] 2.16. 840.1.808226.3.579.2.196 1986 Unknown [id number] 2.16.8 40.1.194883.3.579.2.727 1985 Unknown [id number] 2.16.8 40.1.590711.3.579.2.727 1985 Unknown [id number] 2.16.8 [id number] 1985 Unknown [id number] 2.16.8 [id number] 1986 Unknown [id number] 2.16.8 [id number] 1986 Unknown [id number] 2.16.8 [id number] 1959 Unknown [id number] 1959 Unknown [id number] 2.1 [id number] 1959 Unknown [id number] Unknown [id number] 2.16.8 [id number] Unknown [id number] 2.16.8 [id number] Social History Date Type Detail Facility Unknown if ever smoked [facility] Other Sex Assigned At [facility] Start: 10-04-2022 End: 02-08-2023 Tobacco smoking status Never smoked tobacco (finding) [facility] Start: 1985 Sex Assigned At Female F [facility] Functional Status Date Assessment Result Facility 07-05-2023 Functional Status N/A [facility] 10-04-2022 Functional Status N/A [facility] Clinical Notes 07-22-2021 to 09-22-2023 Note Date & Type Note Facility 09-22-2023 Evaluation note Encounter Date Diagnosis Assessment Notes Sep, Dysuria (ICD-10 - R30.0) Discussed dipstick findings with patient. Advised patient that there is no evidence of acute UTI. Advised that this is likely related to stone. Recommended ER for further evaluation and workup. Patient verbalizes understanding and is agreeable with treatment plan [facility] Other 09-25-2023 Hospital Discharge instructions Patient Education [...] include: ?8 oz (237 mL) of milk, bwwcqck-zvugwmluhhqx-ttpxy milk, and calcium- fortifiedfruit juice. Calcium-fortified means [...] ?Spinach (cooked), rhubarb, beets, sweet potatoes, and Salvadorean chard. ?Peanuts. ?Potato chips, ghanaian fries, and baked potatoes with skin on. ?Nuts and nut products. ?Chocolate. If you regularly take a diuretic medicine, make sure to eat at least 1 or 2 servings of fruits or vegetables that are high in potassium each day. These include: ?Avocado. ?Banana. ?[place], prune, carrot, or tomato juice. ?Baked potato. [...] magnesium, fish oil, or vitamin B6. Take hrop-ydq-iwsvzfc and prescription medicines only as told by [...] Casseroles. Pizza. Lasagna. Frozen meals. Potato chips. Nepali fries. The items listed above may not [...] provider. Document Revised: 05/17/2022 Document Reviewed: 05/17/2022 boo-box Patient Education 2022 [employer]. Follow Up Care 02/08/2023 16:17:30 With:YORDY WILLSON, XIMENA Lam, URL Address: [address] [place] [address] [phone] When: Unknown Comments:2 yr w/ BOGDAN and QING [facility] 06-18-2023 Evaluation note* Encounter Date Diagnosis Assessment [...] fever. Patient verbalized understanding of treatment plan. [facility] Other 01-16-2023 Hospital Discharge instructions Patient Education [...] include: ?Spinach. ?Rhubarb. ?Beets. ?Potato chips and ghanaian fries. ?Nuts. If you regularly take a diuretic medicine, make sure to eat at least 1 2 fruits or vegetables high in potassium each day. These include: ?Avocado. ?Banana. ?[place], prune, carrot, or tomato juice. ?Baked potato. [...] Casseroles. Pizza. Lasagna. Frozen meals. Potato chips. Nepali fries. Summary You can reduce your risk [...] 12/31/2011 Document Revised: 12/26/2019 Document Reviewed: 08/16/2017 boo-box Patient Education 2020 [employer]. Follow Up Care 08/30/2022 15:20:43 With:CLARITZA JOHNSTON, Isra Lorenzana, URL Address: [facility] [address] , [place] [address]- When: Unknown [facility] 12-14-2022 Evaluation note* Encounter Date Diagnosis Assessment [...] needed for cough or shortness of breath [facility] Other 08-04-2022 Evaluation note* Encounter Date Diagnosis [...] care provider if no improvement of symptoms. [facility] Other 11-03-2021 Evaluation note* Encounter Date Diagnosis [...] Patient care instructions given in writting by [facility] Care At Home document. [facility] Other Evaluation + Plan note Future Appointments Appointment Date:01/10/2023 03:15:00 PM Scheduled Provider:Isra CHAN MD Location:[facility] Appointment Type:URO Office Visit Diagnostic Tests Pending * Creatinine 10/04/22 [facility] evaluation + Plan note Future Appointments Appointment Date:07/10/2024 02:00:00 PM Scheduled Provider:XIMENA SCALES PA-C Location:[facility] Appointment Type:URO Office Visit [facility] evaluation noteNo assessment information available [facility] Work Phone: History general Narrative - Reported* Type Description Date Medical History kidney stones Surgical History C section Surgical History appendectomy Surgical History cholecystectomy Surgical History hernia repair Surgical History lithotripsy Surgical History wisdom teeth extract Hospitalization History see above [facility] Other History general Narrative - Reported* Type Description Date Medical History kidney stones Medical History anxiety Medical History migraine headache Surgical History C section Surgical History appendectomy Surgical History cholecystectomy Surgical History hernia repair Surgical History lithotripsy Surgical History wisdom teeth extract Hospitalization History see above [facility] Other Hisslcp general Narrative - Reported* Type Description Date Medical History kidney stones Medical History anxiety Medical History migraine headache Surgical History C section Surgical History appendectomy Surgical History cholecystectomy Surgical History hernia repair Surgical History lithotripsy Surgical History wisdom teeth extract Surgical History cortisone shots in back Hospitalization History see above [facility] Other Hospital course Narrative No data available for this section [id number] Hospital Discharge instructions No data [facility] for this [facility] No data available for this section [facility] [id number] Summary Purpose Family History No Family History Records FoundNo Family History Records FoundNo Family History Records Found No data available for this section No data available for this section No [...] section and content) DATE CREATED AUTHOR 03/14/2018 [facility] DATE CREATED AUTHOR AUTHOR'S ORGANIZ ATION 01/19/2023 [facility] DATE CREATED AUTHOR AUTHOR'S ORGANIZ ATION 03/19/2023 [facility] DATE CREATED AUTHOR AUTHOR'S ORGANIZ ATION 04/03/2024 [facility] DATE CREATED AUTHOR AUTHOR'S ORGANIZ ATION 05/01/2024 [facility] DATE CREATED AUTHOR AUTHOR'S ORGANIZ ATION 05/10/2024 [facility] DATE CREATED AUTHOR AUTHOR'S ORGANIZ ATION 05/12/2024 [facility] DATE CREATED AUTHOR AUTHOR'S ORGANIZ ATION 05/15/2024 [facility] DATE CREATED AUTHOR AUTHOR'S ORGANIZ ATION 06/02/2024 [facility] EPIC REASON FOR VISIT (unrecogniz ed section and [...] BE BASED ON THE PRIMARY CLINICAL RECORDS. [employer] provides no warranty or guarantee of the accuracy or completeness of information in this document.
[2024-06-04 07:21] VITALS: BP 129/91; PULSE 79; TEMP 36.7; O2SAT 98
[2024-06-04 08:10] VITALS: BP 110/81; PULSE 89; O2SAT 100
[2024-06-04 08:13] VITALS: BP 130/70; PULSE 82; O2SAT 98
[2024-06-04] MEDS: BUPIVACAINE HCL 0.25% PF 25 MG/10 ML VIAL 5 ML INJ (08:16)
--- NOTE | 2024-06-04 08:16 | P.ON_ITS ---
Date of procedure: 06/04/24 Pre-op diagnosis: Pain due to thoracic spondylosis without myelopathy Post-op diagnosis: same as pre-op Procedure: Procedure: Right T10-11, T11-12 radiofrequency ablation Medications: Bupivacaine 0.25% 2cc, lidocaine 2% 3cc, dexamethasone 10mg The patient was seen and examined in the preoperative holding area.? The site was marked.? Written informed consent was obtained and placed on the chart.? The patient was brought to the medical procedure unit and placed in the prone position.? A timeout was completed verifying correct patient, procedure, positioning, and special requirements.? The skin overlying the target points, the designated medial branch, were prepped and draped in the usual sterile fashion.? The target point was achieved with a 20-gauge 15 cm with a 10 mm curved active tip radiofrequency cannula under direct fluoroscopic visuali zation.? The needle was inserted at level T10 on the right side. Needle tip position was confirmed with lateral fluoroscopic position.? Motor stimulation was carried out at 2 Hz up to 5 volts with the absence of extremity activity.? This was repeated at level T11, 12 on right side.?? Sensory stimulation was carried out.? Concordant pain was realized at the above- mentioned sites.? Then radiofrequency lesioning was carried out times 90 seconds at 80 degrees times 2 lesions at each level.? The radiofrequency probe was removed prior to cannula removal.? The above-mentioned injectate was placed in 1 mL increments.? The needle was removed.? Insertion sites were covered.? The patient was taken to the postoperative recovery area and monitored for an appropriate length of time before being found suitable for discharge in the company of a responsible adult. Anesthesia: Local Surgeon: Joanne Cameron Pathology: none sent Condition: stable Disposition: no change
[2024-06-04] MEDS: LIDOCAINE HCL 2% 400 MG/20 ML MDV 5 ML INJ (08:17)
[2024-06-04] MEDS: DEXAMETHASONE SOD PHOS 10 MG/ML VIAL INJ (08:17)
== END 2024-06-04 08:22 | disposition home or self-care (01) ==
LOC: SURGOUT 06:56
PROVIDERS: PCP Family Medicine; Visit Provider Anesthesiology
DX: M47.814 Spondylosis without myelopathy or radiculopathy, thoracic region (principal)
CPT/HCPCS: 64633; 64634; J0665; J1100

== ENCOUNTER 2024-06-18 07:16 | Day surgery (SDC) | payer OTHER, SELFPAY ==
--- OUTSIDE RECORDS SUMMARY | 2024-06-18 07:19 | XMS_ITS | CCD ---
Author Organization [facility] CliniSywa Care Team Providers Care Oracle Database Administrator Name Role Phone WINSOME, MINGO S Unavailable Unavailable BETANCUR, MAYE P Unavailable Unavailable WINSOME, MINGO S Unavailable Unavailable BETANCUR, MAYE P Unavailable Unavailable SaraDeeJennyfer Unavailable Jessenia Ortiz Unavailable ABDOUL ALBERTO Primary [...] Unavailable WEST, DR RIC Diaz Consulting Unavailable NADERESalomón, DR ABDOUL Ayala Primary Care Unavailable NADERESalomón, [...] DR CHAVEZ Consulting Unavailabl e REQUEST, DR EPPERSON LISTED Primary Care Unavaila ble KARASIK ., [...] Leana Soler Unavailable KEN Soler Attending Provider [phone] Leana Soler Attending Unavailable Leana Soler Admitting Unavailable NO FAMILY, PHYSICIAN Primary Care Unavailable Elisabeth Ma Unavailable ABDOUL ALBERTO Attending Unavailable NADERESalomón, ABDOUL Attending Unavailable TIMMIS, LIN H Attending Unavailable NADERERABDOUL Referring Unavailable TIMMIS, LIN H Attending Unavailable NADERERABDOUL Attending Unavailable YORDY, XIMENA E Attending Unavailable YORDY, XIMENA E Attending Unavailable Timmis, Lin H Attending Unavailable Timmis, Lin H Referring Unavailable Timmis, Lin H Admitting Unavailable CADEN, GIAN C Admitting Unavailable CADEN, GIAN C Attending Unavailable CADEN, GIAN C Attending Unavailable SALLOUHAGORGE Attending Unavailable NADERER, ABDOUL Attending Unavailable Giedraitis , Andyeyo Olivares Attending Unavailable Giedraitis , Andrius Vwallace Attending Unavailable Giedraitis , Andrius Vytmekhi Attending Unavailable Giedraitis , Andrius Vytmekhi Attending Unavailable Allergies Allergy Classification Reported Allergen(s) Allergy Type Date of Onset Reaction(s) Facility Penicillins (antibiotic) (1 source) Penicillin G; Translations: [penicillin G benzathine] Drug Allergy Eruption of skin (disorder) [facility] (8 sources) Penicillin G Benzathine; Translations: [Penicillin G] Drug allergy rash, Eruption of skin (disorder) [facility] (1 source) Penicillin Drug Allergy [facility] (2 sources) Penicillins; Translations: [PENICILLINS] Propensity to adverse reactions to drug (disorder) 4 [facility] Repository Medications Current Medications Medication Drug [...] 2 tablets Orally Once a day Not-Taking/PRN [id number] 60 actuat albuterol 0.09 mg/actuat metered dose [...] hua Not-Taking hydroCHLOROthiaz hua Active polymyxin b 63551 unt/ml / trimethoprim 1 mg/ml ophthalmic solution (1 source) Dihydrofolate Reductase Inhibitor Antibacterial, Polymyxin-class Antibacterial Start: 02-01-2023 take 1 drop(s) into the eye(s) every three hours Polytrim 38290-8.1 UNIT/ML 1 drop into affected eye Ophthalmic every 3 hours while awake for January, Not-Taking Polytrim 40838-2.1 UNIT/ML (1 source) Start: 02-01-2023 take 1 drop(s) into the eye(s) every three hours as needed Polytrim 47853-4.1 UNIT/ML 1 drop into affected eye Ophthalmic [...] Signature): 02/21/2024 2:24 pm Signed by: Fidel Diaomnd DO Transcribed by: ADILENE Technologist: GALLO Roe [facility] Consent for Treatmenton 01-19 Consent for Treatment [id number]#1.0 0TIFF Normal [facility] Physician Orderon 01-26-2024 Physician Order [id number]#1.0 0TIFF Normal [facility] RAD - MISCon 09-23-2023 RAD - MISC [id number]#1.0 0TIFF [facility] RAD - Ultrasound Reporton RAD - Ultrasound Report [id number] 0TIFF [facility] Urinalysis - AUTOMATEDon Appearance (U) clear [employer] Other Bilirubin Ql (U) Negative [employer] Other Color (U) yellow [employer] Other Glucose Ql (U) Negative [employer] Other Hemoglobin Ql (U) small [employer] Other Ketones Ql (U) Negative [employer] Other Leukocyte esterase Test strip Ql (U) Negative [employer] Other Nitrite Ql (U) Negative [employer] Other pH (U) 7.0 [pH] [employer] Other Protein Ql (U) Negative [employer] Other Specific gravity (U) [Rel density] 1.025 [employer] Other Urobilinogen (U) [Mass/Vol] 0.2 mg/dL [employer] Other Urinalysis - AUTOMATED [employer] Other RAD - MISCon 07-08-2023 RAD - MISC [id number]#1.0 0TIFF [facility] Screenson 07-06-2023 Screens [id number]#1.0 0TIFF [facility] Ambulatory Visit Summaryon 1 Ambulatory Visit Summary LUL BRITTON :1985 Visit Date:07/05/2023 Ambulatory Visit Instructions Your Diagnosis Kidney stones Flank pain History of kidney stones Tests Performed Urnls Dip Stick Auto w/o Microscopy POC 42271 US Renal -- Results Pending -- XR [...] XIMENA SCALES PA-C Where: [facility] Reminderson 07-05-2023 Reminders - From: Ailin Dubose To: PADMINI Scales; Sent: 07/05/2023 15:50:31 EDT Show up: 06/19/2024 15:50:00 EDT Subject: KUB and QING prior to appt Reminder Message Please Remember to:_have pt complete KUB and QING prior to appt. Prefers TB. Normal [facility] Urology Office/Clinic Noteon 07-05-2023 Urology Office/Clinic [...] stones since age 20. Previously treated in [place]. S/P Lithotripsy in 2017. Hx of 8 [...] Contact Information YORDY WILLSON, XIMENA Lam, URL [address] [place] [address] [phone] Additional Instructions: 1 yr w/ KUB and QING Patient Education Dietary Guidelines to Help Prevent Kidney Stones Documentation recorded by the roseann Dubose accurately reflects the services(s) I performed and decisions made by me. Authenticated by Ximena Scales PA-C on 07/05/2023 16:45:18. IAilin, personally scribed for Ximena Scales PA-C on [...] Negative (07/05/23 15:24:00) Blood Urine Dipstick: Trace-intact (07/05/23:24:00) Glucose Urine Dipstick: Negative (07/05/23:24:00) Ketones Urine Dipstick: Negative (07/05/23:24:00) Leukocytes Urine Dipstick: Trace (07/05/23 15:24:00) Nitrite Urine Dipstick: Negative (07/05/23:24:00) Protein Urine Dipstick: Negative (07/05/23:24:00) Specific Winston Urine Dipstick: <=1.005 (07/05/23:24:00) Urine Appearance Urine Dipst (more content not included)... Normal [facility] Comment on above: Result Comment: Elec tronically Signed By: XIMENA SCALES PA-C\.br\Date and Time Signed: 07/05/23 16:45 EDT\.br\Electronically Co-Signed By: Ailin Dubose\.br\Date and Time Co-Signed: 07/05/23 15:48 EDT RAD - MISCon 06-30-2023 RAD - MISC [id number]#1.0 0TIFF [facility] Patient Educationon 06-13-20 Patient Education Nephrology Dietary [...] ? 8 oz (237 mL) of milk, vdhzmkj-ntwlwvmvdsni-a airy milk, and calcium-fortifiedfruit juice. Calcium-fortified means [...] Spinach (cooked), rhubarb, beets, sweet potatoes, and Russian chard. ? Peanuts. ? Potato chips, indian fries, and baked potatoes with skin on. ? Nuts and nut products. ? Chocolate. ? If you regularly take a diuretic medicine, make sure to eat at least 1 or 2 servings of fruits or vegetables that are high in potassium each day. These include: ? Avocado. ? Banana. ? Beltrami, prune, carrot, or tomato juice. ? Baked [...] fish oil, or vitamin B6. ? Take ijbv-fsi-saoqhfx and prescription medicines only as told by your health care provider. These include supplements. What foods should I limit? Limit your in (more content not included)... Normal [facility] XR foot LT min 3V*on 023 XR foot LT min 3V* [facility] [address] [place] [address] XRay Report Signed Patient: Lul Britton MR#: [id number] : 1985 Acct:[id number] Age/Sex: 37 / F ADM Date: 03/06/23 Loc: XDUCLY [facility]: [facility] Attending Dr: Leana Soler APRN Copies to: [...] Selena Thomson M.D.03/06/2023 2:30 PM Dictation Location: [place] [address] Transcribed By: [facility] 03/06/23 1430 Dictated By: Selena Thomson MD 03/06/23 1429 Signed By: 03/06/23 1430 Normal [facility] XR foot LT min 3V* [facility] [employer] Other XR foot LT min 3V* [facility] [employer] Other XR foot LT min 3V* [address] [facility] [employer] Other XR foot LT min 3V* [place] [address] [facility] [employer] Other XR foot LT min 3V* XRay Report [facility] [employer] Other XR foot LT min 3V* Signed [facility] [employer] Other XR foot LT min 3V* Patient: Lul Britton MR#: [id number] [employer] Other XR foot LT min 3V* 6 [employer] Other XR foot LT min 3V* : 1985 Acct:[id number] [employer] Other XR foot LT min 3V* Age/Sex: 37 / F ADM Date: 03/06/23 [employer] Other XR foot LT min 3V* Loc: XDUCLY Room: Type: [facility] [employer] Other XR foot LT min 3V* Attending Dr: Leana Soler [facility] [employer] Other XR foot LT min 3V* Copies to: Leana Soler [facility] [employer] 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 Other XR foot LT min 3V* Date of Service: 03/06/23 [employer] Other XR foot LT min 3V* XR/XR foot LT min 3V*: M79.672 [employer] Other XR foot LT min 3V* LEFT FOOT - 3 views [employer] Other XR foot LT min 3V* CLINICAL DATA: Dorsa l foot pain for the past 5 days. No injury [employer] Other XR foot LT min 3V* COMPARISON: None [employer] Other XR foot LT min 3V* AP, lateral and oblique views were obtained. There is no evidence of fracture or dislocation. [employer] Other XR foot LT min 3V* There are posterior and plantar calcaneal spurs. There is soft tissue swelling over the dorsum of [employer] Other XR foot LT min 3V* foot. The soft tissu es of the ankle are also prominent. [employer] Other XR foot LT min 3V* XR/XR foot LT min 3V* [employer] Other XR foot LT min 3V* IMPRESSION: [employer] Other XR foot LT min 3V* NO ACUTE BONY FINDINGS. [employer] Other XR foot LT min 3V* Impression dictated by: Selena Thomson M.D.03/06/2023 2:30 PM [employer] Other XR foot LT min 3V* Dictation Location: [place] [address] [employer] Other XR foot LT min 3V* Transcribed By: NESSA 03/06/23 1430 [employer] Other XR foot LT min 3V* Dictated By: Selena Thomson MD 03/06/23 1429 [employer] Other XR foot LT min 3V* Signed By: [employer] Other XR foot LT min 3V* 03/06/23 1430 [facility] [employer] Other CITRATE URINE 24HRon 023 Citric Acid, U, 24hr 410 mg/24 hr Normal 320-1240 [facility] Comment on above: Result Comment: This test was developed and its performance characteristics determined by [facility].. It has not been cleared or approved by the Food and Drug Administration. Performed By: #### O X24HR #### [facility] [address] [place] [address] Dr. Neil Krishnamurthy Citric Acid, Urine 200 mg/L Normal Undefined [facility] Comment on above: Performed By: #### O X24HR #### [facility] [address] [place] [address] Dr. Neil Krishnamurthy OXALATE 24HR URINEon 023 Oxalates, Urine 7 mg/L Normal Undefined [facility] Comment on above: Performed By: #### O X24HR #### [facility] [address] [place] [address] Dr. Neil Krishnamurthy Oxalates, Urine 24hr 14 mg/24 hr Normal 4-31 [facility] Comment on above: Performed By: #### O X24HR #### [facility] [address] [place] [address] Dr. Neil Krishnamurthy MAGNESIUM 24HR URINEon 12-07 Magnesium 24hr Urine 116.9 mg/24 hr Normal 12.0-293.0 [facility] Comment on above: Performed By: #### C O2, CL, BUN, CREA, URIC, K, CA, NA #### [facility] [address] [place] [address] Dr. Neil Krishnamurthy Magnesium UR 5.7 mg/dL Normal Not Estab. [facility] Comment on above: Performed By: #### C O2, CL, BUN, CREA, URIC, K, CA, NA #### [facility] [address] [place] [address] Dr. Neil Krishnamurthy PHOSPHORUS 24HR URINEon 11-18 Phosphorus, Urine 56.6 mg/dL Normal Not Estab. [facility] Comment on above: Performed By: #### O X24HR #### [facility] [address] [place] [address] [address] Neil Krishnamurthy Phosphorus, Urine 24hr 1160 mg/24 hr Critically high 261-1078 [facility] Comment on above: Performed By: #### O X24HR #### [facility] [address] [place] [address] Dr. Neil Krishnamurthy PTH INTACTon 12-07-2022 PTH, Intact 41 pg/mL Normal 15-65 [facility] Comment on above: Performed By: #### O X24HR #### [facility] [address] [place] [address] [address] Neil Krishnamurthy URIC ACID 24 HR URINEon 11-18 Uric Acid, Urine 23.4 mg/dL Normal Not Estab. [facility] Comment on above: Performed By: #### O X24HR #### [facility] [address] [place] [address] Dr. Neil Krishnamurthy Uric Acid, Urine 24hr 479.7 mg/24 hr Normal 173.7-902.1 [facility] Comment on above: Performed By: #### O X24HR #### [facility] [address] [place] [address] Dr. Neil Krishnamurthy BUNon 12-06-2022 Urea nitrogen [Mass/Vol] 12.0 mg/dL Normal 7.0-18.0 [facility] Comment on above: Performed By: #### C O2, CL, BUN, CREA, URIC, K, CA, NA #### [facility] [address] [place] [address] Dr. Neil Krishnamurthy CALCIUMon 12-06-2022 Calcium [Mass/Vol] 8.6 mg/dL Normal 8.5-10.1 [facility] Comment on above: Performed By: #### O X24HR #### [facility] [address] [place] [address] Dr. eNil Krishnamurthy CALCIUM 24 HR URINEon 2022 CALC, 24 HR UR 479.7 mg/24 hr Critically high 100.0-300.0 [facility] Comment on above: Performed By: #### V AGINT #### [facility] [address] [place] [address] Dr. Neil Krishnamurthy UR CALCIUM 23.4 mg/dL Critically high 5.1-21.0 [facility] Comment on above: Performed By: #### V AGINT #### [facility] [address] [place] [address] Dr. Neil Krishnamurthy UR TOT VOL 2050 ml/24 HR Normal [facility] Comment on above: Performed By: #### V AGINT #### [facility] [address] [place] [address] Dr. Neil Krishnamurthy Performed By: #### C O2, CL, BUN, CREA, URIC, K, CA, NA #### [facility] [address] [place] [address] Dr. Neil Krishnamurthy CHLORIDEon 12-06-2022 Chloride [Moles/Vol] 106 mmol/L Normal 98-107 [facility] Comment on above: Performed By: #### C O2, CL, BUN, CREA, URIC, K, CA, NA #### [facility] [address] [place] [address] Dr. Neil Krishnamurthy CO2on 12-06-2022 CO2 [Moles/Vol] 25.7 mmol/L Normal 21.0-32.0 [facility] Comment on above: Performed By: #### C O2, CL, BUN, CREA, URIC, K, CA, NA #### [facility] [address] [place] [address] Dr. Neil Krishnamurthy CREA 24 HR URINEon CREA, 24 HR UR 1371.04 mg/24 hr Normal 800.00-1, 800. 00 [facility] Comment on above: Performed By: #### C O2, CL, BUN, CREA, URIC, K, CA, NA #### [facility] [address] [place] [address] Dr. Neil Krishnamurthy URINE CREAT 66.88 mg/dL Normal 20.00-300.00 [facility] Comment on above: Performed By: #### C O2, CL, BUN, CREA, URIC, K, CA, NA #### [facility] [address] [place] [address] Dr. Neil Krishnamurthy CREATININEon 12-06-2022 Creatinine [Mass/Vol] 0.78 mg/dL Normal 0.55-1.02 [facility] Comment on above: Performed By: #### C O2, CL, BUN, CREA, URIC, K, CA, NA #### [facility] [address] [place] [address] Dr. Neil Krishnamurthy EGFR-AF VIETNAMESE >60 Normal >=60 [facility] Comment on above: Performed By: #### C O2, CL, BUN, CREA, URIC, K, CA, NA #### [facility] [address] [place] [address] Dr. Neil Krishnamurthy EGFR-NON AF VIETNAMESE >60 Normal >=60 [facility] Comment on above: Performed By: #### C O2, CL, BUN, CREA, URIC, K, CA, NA #### [facility] [address] [place] [address] Dr. Neil Krishnamurthy NAon 12-06-2022 Sodium [Moles/Vol] 139 mmol/L Normal 136-145 [facility] Comment on above: Performed By: #### C O2, CL, BUN, CREA, URIC, K, CA, NA #### [facility] [address] [place] [address] Dr. Neil Krishnamurthy POTASSIUMon 12-06-2022 Potassium [Moles/Vol] 4.1 mmol/L Normal 3.5-5.1 [facility] Comment on above: Performed By: #### C O2, CL, BUN, CREA, URIC, K, CA, NA #### [facility] [address] [place] [address] Dr. Neil Krishnamurthy SODIUM 24 HR URINEon 023 NA, 24 HR UR 211 mmol/24 hr Normal 40-220 [facility] Comment on above: Performed By: #### C O2, CL, BUN, CREA, URIC, K, CA, NA #### [facility] [address] [place] [address] Dr. Neil Krishnamurthy Sodium (U) [Moles/Vol] 103 mmol/L Critically high 30-90 [facility] Comment on above: Performed By: #### C O2, CL, BUN, CREA, URIC, K, CA, NA #### [facility] [address] [place] [address] Dr. Neil Krishnamurthy URIC ACID SERUMon 12-06-2022 Urate [Mass/Vol] 5.0 mg/dL Normal 2.6-6.0 [facility] Comment on above: Performed By: #### C O2, CL, BUN, CREA, URIC, K, CA, NA #### [facility] [address] [place] [address] [address] Neil Krishnamurthy ECHOCARDIO M/2D COMPLETEon 0 11-17-2022 ECHOCARDIO M/2D COMPLETE Patient: LUL BRITTON Exam Date: 11/17/2022 : 1985 Gender:F Ordering : DR ABDOUL ALBERTO . Admission #: [id number] Family : Order #: [id number] CLICK HERE TO VIEW EXAM ECHOCARDIOGRAM REPORT [...] Onofre M.D. on 11/18/2022 at 09:50 Normal [facility] US PELVIS AND TRANSVAGon US PELVIS AND [...] RIC QUEZADA Date: 2022-11-01 07:20 Normal [facility] XR RIBS RT PA Karl 3 XR [...] RIC QUEZADA Date: 2022-11-01 07:12 Normal [facility] XR TSPINE MIN 4 VIEWSon 10-20 XR [...] by: RIC QUEZADA Date: 2022-11-01 07:09 Normal [facility] CREATININEon 10-12-2022 Creatinine [Mass/Vol] 0.91 mg/dL Normal 0.55-1.02 [facility] Comment on above: Performed By: #### O X24HR #### [facility] [address] [place] [address] Dr. Neil Krishnamurthy EGFR-AF VIETNAMESE >60 Normal >=60 [facility] Comment on above: Performed By: #### O X24HR #### [facility] [address] [place] [address] Dr. Neil Krishnamurthy EGFR-NON AF VIETNAMESE >60 Normal >=60 [facility] Comment on above: Performed By: #### O X24HR #### [facility] [address] [place] [address] Dr. Neil Krishnamurthy XR IVPon 10-12-2022 XR IVP EXAMINATION: XR IVP HISTORY: Kidney stone COMPARISON: No relevant comparison available. 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 Other COVID/FLU RT-PCR Negative [facility] [employer] Other XR KUB 1 VIEWon 08-30-2022 XR [...] by: RIC QUEZADA Date: 2022-08-30 07:28 Normal [facility] CBC AUTO DIFFon 07-13-2022 BASO # 0.0 103/ul Normal 0.0-0.1 [facility] Comment on above: Performed By: #### V AGINT #### [facility] [address] [place] [address] Dr. Neil Krishnamurthy Basophils/100 WBC (Bld) 0.5 % Normal 0.2-2.0 [facility] Comment on above: Performed By: #### V AGINT #### [facility] [address] [place] [address] Dr. Neil Krishnamurthy EO # 0.2 103/ul Normal 0.0-0.7 [facility] Comment on above: Performed By: #### V AGINT #### [facility] [address] [place] [address] Dr. Neil Krishnamurthy Eosinophils/100 WBC (Bld) 1.9 % Normal 0.9-7.0 [facility] Comment on above: Performed By: #### V AGINT #### [facility] [address] [place] [address] Dr. Neil Krishnamurthy Erythrocyte distribution width (RBC) [Ratio] 11.7 % Normal 11.0-15.0 [facility] Comment on above: Performed By: #### V AGINT #### [facility] [address] [place] [address] Dr. Neil Krishnamurthy Hematocrit (Bld) [Volume fraction] 41.1 % Normal 36.0-48.0 [facility] Comment on above: Performed By: #### V AGINT #### [facility] [address] [place] [address] Dr. Neil Krishnamurthy Hemoglobin (Bld) [Mass/Vol] 13.7 g/dL Normal 12.0-16.0 [facility] Comment on above: Performed By: #### V AGINT #### [facility] [address] [place] [address] Dr. Neil Krishnamurthy IG # 0.03 10e3/ul Normal 0.00-0.03 [facility] Comment on above: Performed By: #### V AGINT #### [facility] [address] [place] [address] Dr. Neil Krishnamurthy IG % 0.4 % Normal 0.0-0.5 [facility] Comment on above: Performed By: #### V AGINT #### [facility] [address] [place] [address] Dr. Neil Krishnaumrthy LYMPH # 2.8 103/ul Normal 1.2-3.8 [facility] Comment on above: Performed By: #### V AGINT #### [facility] [address] [place] [address] Dr. Neil Krishnamurthy Lymphocytes/100 WBC (Bld) 32.9 % Normal 20.5-60.0 [facility] Comment on above: Performed By: #### V AGINT #### [facility] [address] [place] [address] Dr. Neil Krishnamurthy MANUAL DIFF REQ NO Normal [facility] Comment on above: Performed By: #### V AGINT #### [facility] [address] [place] [address] Dr. Neil Krishnamurthy MCH (RBC) [Entitic mass] 30.4 pg Normal 26.7-34.0 [facility] Comment on above: Performed By: #### V AGINT #### [facility] [address] [place] [address] Dr. Neil Krishnamurthy MCHC (RBC) [Mass/Vol] 33.3 g/dL Normal 29.9-35.2 [facility] Comment on above: Performed By: #### V AGINT #### [facility] [address] [place] [address] Dr. Neil Krishnamurthy MCV (RBC) [Entitic vol] 91.3 fL Normal 81.0-99.0 [facility] Comment on above: Performed By: #### V AGINT #### [facility] [address] [place] [address] Dr. Neil Krishnamurthy MONO # 0.7 103/ul Normal 0.3-0.8 [facility] Comment on above: Performed By: #### V AGINT #### [facility] [address] [place] [address] Dr. Neil Krishnamurthy Monocytes/100 WBC (Bld) 8.0 % Normal 1.7-12.0 [facility] Comment on above: Performed By: #### V AGINT #### [facility] [address] [place] [address] Dr. Neil Krishnamurthy NEUT # 4.8 103/ul Normal 1.4-6.5 [facility] Comment on above: Performed By: #### V AGINT #### [facility] [address] [place] [address] Dr. Neil Krishnamurthy Neutrophils/100 WBC (Bld) 56.3 % Normal 43.0-75.0 [facility] Comment on above: Performed By: #### V AGINT #### [facility] [address] [place] [address] Dr. Neil Krishnamurthy Platelet mean volume (Bld) [Entitic vol] 11.0 fL Normal 9.5-13.5 [facility] Comment on above: Performed By: #### V AGINT #### [facility] [address] [place] [address] Dr. Neil Krishnamurthy PLT 242 103/ul Normal 150-450 [facility] Comment on above: Performed By: #### V AGINT #### [facility] [address] [place] [address] Dr. Neil Krishnamurthy RBC 4.50 106/ul Normal 4.20-5.40 [facility] Comment on above: Performed By: #### V AGINT #### [facility] [address] [place] [address] Dr. Neil Krishnamurthy WBC 8.5 103/ul Normal 4.0-11.0 [facility] Comment on above: Performed By: #### V AGINT #### [facility] [address] [place] [address] Dr. Neil Krishnamurthy GLYCOHEMOGLOBIN A1Con 2021 ADA RECOMMENDATION SEE BELOW Normal [facility] Comment on above: Result Comment: ADA RECOMMENDED LIMIT 4.0 - 6.0 ADA THERAPEUTIC TARGET < 7.0 ACTION SUGGESTED > 7.0 Performed By: #### V AGINT #### [facility] [address] [address] [address] Neil Krishnamurthy Glucose [Mass/Vol] 97 mg/dL Normal [facility] Comment on above: Performed By: #### V AGINT #### [facility] [address] [address] [address] Neil Krishnamurthy HbA1c (Bld) [Mass fraction] 5.0 % Normal 4.5-6.2 [facility] Comment on above: Performed By: #### V AGINT #### [facility] [address] [place] [address] Dr. Neil Krishnamurthy LIPID PROFILEon 07-13-2022 CHOL-HDL RATIO NORM SEE BELOW Normal [facility] Comment on above: Result Comment: 3.3 - 4.4 LOW RISK 4.4 - 7.1 AVERAGE RISK 7.1 - 11.0 MODERATE RISK >11.0 HIGH RISK Performed By: #### O X24HR #### [facility] [address] [place] [address] Dr. Neil Krishnamurthy Cholesterol [Mass/Vol] 157 mg/dL Normal <=200 [facility] Comment on above: Performed By: #### O X24HR #### [facility] [address] [place] [address] Dr. Neil Krishnamurthy Cholesterol in HDL [Mass/Vol] 50 mg/dL Normal 40-60 [facility] Comment on above: Performed By: #### O X24HR #### [facility] [address] [address] [address] Neil Krishnamurthy Cholesterol in LDL [Mass/Vol] 79.4 mg/dL Normal [facility] Comment on above: Performed By: #### O X24HR #### [facility] [address] [address] [address] Neil Krishnamurthy Cholesterol.total/C holesterol in HDL [Mass ratio] 3.1 {ratio} Normal [facility] Comment on above: Performed By: #### O X24HR #### [facility] [address] [address] [address] Neil Krishnamurthy HDL NORMAL > or = 60 mg/dl - LO W CARDIOVASCULAR RISK <40 mg/dl - HIGH CARDIOVASCULAR RISK Normal [facility] Comment on above: Performed By: #### O X24HR #### [facility] [address] [address] [address] Neil Krishnamurthy LDL CALC NORMAL SEE BELOW Normal [facility] Comment on above: Result Comment: <100 mg/dl OPTIMAL 100 - 129 mg/dl NEAR OR ABOVE OPTIMAL 130 - 159 mg/dl BORDERLINE HIGH 160 - 189 mg/dl HIGH >190 mg/dl VERY HIGH Performed By: #### O X24HR #### [facility] [address] [address] [address] Neil Krishnamurthy Triglyceride [Mass/Vol] 138 mg/dL Normal <=150 [facility] Comment on above: Performed By: #### O X24HR #### [facility] [address] [place] [address] Dr. Neil Krishnamurthy VLDL CALC 27.6 mg/dL Normal [facility] Comment on above: Performed By: #### O X24HR #### [facility] [address] [place] [address] Dr. Neil Krishnamurthy LIVER PROFILEon 07-13-2022 Albumin [Mass/Vol] 3.5 g/dL Normal 3.4-5.0 [facility] Comment on above: Performed By: #### O X24HR #### [facility] [address] [place] [address] Dr. Neil Krishnamurthy Albumin/Globulin [Mass ratio] 1.0 {ratio} Normal [facility] Comment on above: Performed By: #### O X24HR #### [facility] [address] [place] [address] Dr. Neil Krishnamurthy ALP [Catalytic activity/Vol] 83 U/L Normal 46-116 [facility] Comment on above: Performed By: #### O X24HR #### [facility] [address] [place] [address] Dr. Neil Krishnamurthy ALT [Catalytic activity/Vol] 19 U/L Normal 14-59 [facility] Comment on above: Performed By: #### O X24HR #### [facility] [address] [address] [address] Neil Krishnamurthy AST [Catalytic activity/Vol] 15 U/L Normal 15-37 [facility] Comment on above: Performed By: #### O X24HR #### [facility] [address] [place] [address] Dr. Neil Krishnamurthy BILI, CONJUGATED 0.1 mg/dL Normal 0.0-0.2 [facility] Comment on above: Performed By: #### O X24HR #### [facility] [address] [place] [address] Dr. Neil Krishnamurthy Bilirubin [Mass/Vol] 0.6 mg/dL Normal 0.2-1.0 [facility] Comment on above: Performed By: #### O X24HR #### [facility] [address] [place] [address] Dr. Neil Krishnamurthy Globulin (S) [Mass/Vol] 3.5 g/dL Normal [facility] Comment on above: Performed By: #### O X24HR #### [facility] [address] [place] [address] Dr. Neil Krishnamurthy Protein [Mass/Vol] 7.0 g/dL Normal 6.4-8.2 [facility] Comment on above: Performed By: #### O X24HR #### [facility] [address] [place] [address] Dr. Neil Krishnamurthy PROF CHEM 8 (BAS METB)on Anion gap [Moles/Vol] 10.8 mmol/L Normal [facility] Comment on above: Performed By: #### O X24HR #### [facility] [address] [place] [address] Dr. Neil Krishnamurthy Calcium [Mass/Vol] 8.2 mg/dL Critically low 8.5-10.1 [facility] Comment on above: Performed By: #### O X24HR #### [facility] [address] [place] [address] Dr. Neil Krishnamurthy Chloride [Moles/Vol] 105 mmol/L Normal 98-107 [facility] Comment on above: Performed By: #### O X24HR #### [facility] [address] [address] [address] Neil Krishnamurthy CO2 [Moles/Vol] 24.5 mmol/L Normal 21.0-32.0 [facility] Comment on above: Performed By: #### O X24HR #### [facility] [address] [address] [address] Neil Krishnamurthy Creatinine [Mass/Vol] 0.74 mg/dL Normal 0.55-1.02 [facility] Comment on above: Performed By: #### O X24HR #### [facility] [address] [address] [address] Neil Krishnamurthy EGFR-AF VIETNAMESE >60 Normal >=60 [facility] Comment on above: Performed By: #### O X24HR #### [facility] [address] [place] [address] Dr. Neil Krishnamurthy EGFR-NON AF VIETNAMESE >60 Normal >=60 [facility] Comment on above: Performed By: #### O X24HR #### [facility] [address] [place] [address] Dr. Neil Krishnamurthy Glucose [Mass/Vol] 106 mg/dL Normal 74-106 [facility] Comment on above: Performed By: #### O X24HR #### [facility] [address] [place] [address] Dr. Neil Krishnamurthy Potassium [Moles/Vol] 3.5 mmol/L Normal 3.5-5.1 [facility] Comment on above: Performed By: #### O X24HR #### [facility] [address] [address] [address] Neil Krishnamurthy Sodium [Moles/Vol] 137 mmol/L Normal 136-145 [facility] Comment on above: Performed By: #### O X24HR #### [facility] [address] [address] [address] Neil Krishnamurthy Urea nitrogen [Mass/Vol] 11.0 mg/dL Normal 7.0-18.0 [facility] Comment on above: Performed By: #### O X24HR #### [facility] [address] [address] [address] Neil Krishnamurthy Urea nitrogen/Creatinine [Mass ratio] 14.8 mg/mg Normal [facility] Comment on above: Performed By: #### O X24HR #### [facility] [address] [place] [address] Dr. Neil Krishnamurthy TSHon 07-13-2022 TSH 1.166 uIU/mL Normal 0.358-3.740 [facility] Comment on above: Performed By: #### O X24HR #### [facility] [address] [place] [address] Dr. Neil Krishnamurthy VITAMIN D 25 OHon 07-13-2022 VIT D 25-OH 23.8 ng/mL Normal [facility] Comment on above: Performed By: #### V ITAD #### [facility] [address] [place] [address] Dr. Neil Krishnamurthy VIT D RANGES SEE BELOW Normal [facility] Comment on above: Result Comment: <20 ng/mL Vit D deficient 20 - <30 ng/mL Vit D insufficient 30 - 100 ng/mL Vit D sufficient >100 ng/mL Potential Toxicity Performed By: #### V ITAD #### [facility] [address] [place] [address] Dr. Neil Krishnamurthy MG MAMM SCREEN 3D MARKEL CADon 06-23-2022 MG MAMM SCREEN 3D MARKEL CAD Patient: LUL BRITTON Exam Date: 06/23/2022 : 1985 Gender:F Ordering : DR KATHY BARRAGAN . Admission #: [id number] Family : Order #: [id number] CLICK HERE TO VIEW EXAM RADIOLOGY REPORT [...] cervical cancer at age 31. LOCATION: [facility] BREAST COMPOSITION: Heterogeneously dense,which may obscure small [...] Quezada MD on 06/23/2022 at 11:17 Normal [facility] PAP ACOG PANEL 2: 30 to 65on 06-16-2022 . . Normal [facility] Comment on above: Result Comment: Perf ormed at: WB Performed By: #### C O2, CL, BUN, CREA, URIC, K, CA, NA #### [facility] [address] [address] [address] Neil Krishnamurthy Age Gdln ACOG Testing 30-65 Normal [facility] Comment on above: Performed By: #### C O2, CL, BUN, CREA, URIC, K, CA, NA #### [facility] [address] [address] [address] Neil Krishnamurthy DIAGNOSIS: Comment Normal [facility] Comment on above: Result Comment: NEGA TIVE FOR INTRAEPITHELIAL LESION OR MALIGNANCY. Performed at: WB Performed By: #### C O2, CL, BUN, CREA, URIC, K, CA, NA #### [facility] [address] [address] [address] Neil Krishnamurthy HPV Aptima Negative Normal Negative [facility] Comment on above: Result Comment: This nucleic acid amplification test detects fourteen high-risk HPV types (16,18,31,33,35,39,45,51,52,56,58,59,66,68) without differentiation. Performed at: =G Performed By: #### C O2, CL, BUN, CREA, URIC, K, CA, NA #### [facility] [id number] Neil Krishnamurthy Methodology: Comment Normal [facility] Comment on above: Result Comment: This liquid based ThinPrep(R) pap test was screened with the use of an image guided system. Performed at: WB Performed By: #### C O2, CL, BUN, CREA, URIC, K, CA, NA #### [facility] [address] [place] [address] Dr. Neil Krishnamurthy Note: Comment Normal [facility] Comment on above: Result Comment: The Pap [...] BUN, CREA, URIC, K, CA, NA #### [facility] [address] [place] [address] Dr. Neil Krishnamurthy Performed by: Comment Normal [facility] Comment on above: Result Comment: Fang Song, Research Quality Assurance Analyst (ASCP) Performed at: WB Performed By: #### C O2, CL, BUN, CREA, URIC, K, CA, NA #### [facility] [address] [address] [address] Neil Krishnamurthy Specimen adequacy: Comment Normal [facility] Comment on above: Result Comment: Sati sfactory for evaluation. Endocervical and/or squamous metaplastic cells (endocervical component) are present. Performed at: WB Performed By: #### C O2, CL, BUN, CREA, URIC, K, CA, NA #### [facility] [address] [address] [address] Neil Krishnamurthy VAGINITIS/VAGINOSIS DNA PROB Jovi 06-03-2022 Rachel species Negative Normal Negative [facility] Comment on above: Performed By: #### V AGINT #### [facility] [address] [place] [address] Dr. Neil Krishnamurthy Gardnerella vaginalis Positive Abnormal Negative [facility] Comment on above: Performed By: #### V AGINT #### [facility] [address] [place] [address] Dr. Neil Krishnamurthy Trichomonas vaginalis Negative Normal Negative [facility] Comment on above: Performed By: #### V AGINT #### [facility] [address] [address] [address] Neil BURK Quick Testingon 2020 Result Positive [employer] Other XR ABDOMEN LIMITED (KUB)on XR ABDOMEN LIMITED (KUB) EXAMINATION:SUPINE VIEW(S) OF THE [id number]/08/2017 1:38 pmCOMPARISON:October 19, 2010HISTORY:ORDERING SYSTEM PROVIDED HISTORY: [...] by:TIMBO Menendezigned by:Raheel Morales MD07/08/17Final result Normal [facility] Vital Signs Date Time Vital Sign Value Performing Clinician Facility 09-22-2023 12:00-0500 Body height 152.4 cm Elisabeth Ma Other [employer] Other 09-22-2023 12:00-0500 Body mass index (BMI) [Ratio] 41.87 kg/m2 Elisabeth Ma Other [employer] Other 09-22-2023 12:00-0500 Body temperature 97.7 [degF] Elisabeth Ma Other [employer] Other 09-22-2023 12:00-0500 Body weight 97.25 kg Elisabeth Ma Other [employer] Other 09-22-2023 12:00-0500 Diastolic blood pressure 86 mm[Hg] Elisabeth Ma Other [employer] Other 09-22-2023 12:00-0500 Respiratory rate 18 /min Elisabeth Ma Other [employer] Other 09-22-2023 12:00-0500 SaO2% (BldA) [Mass fraction] 99 % Elisabeth Ma Other [employer] Other 09-22-2023 12:00-0500 Systolic blood pressure 124 mm[Hg] Elisabeth Ma Other [employer] Other 03-06-2023 13:50-0400 Body height 152.4 cm Leana Soler Other [employer] Other 03-06-2023 13:50-0400 Body mass index (BMI) [Ratio] 42.3 kg/m2 Leana Soler Other [employer] Other 03-06-2023 13:50-0400 Body temperature 98.2 [degF] Leana Soler Other [employer] Other 03-06-2023 13:50-0400 Body weight 98.25 kg Leana Soler Other [employer] Other 03-06-2023 13:50-0400 Diastolic blood pressure 76 mm[Hg] Leana Soler Other [employer] Other 03-06-2023 13:50-0400 Respiratory rate 18 /min Leana Soler Other [employer] Other 03-06-2023 13:50-0400 SaO2% (BldA) [Mass fraction] 100 % Leana Soler Other [employer] Other 03-06-2023 13:50-0400 Systolic blood pressure 111 mm[Hg] Leana Soler Other [employer] Other 09-01-2022 17:15-0500 Body height 152.4 cm Jennyfer Ruiz Other [employer] Other 09-01-2022 17:15-0500 Body mass index (BMI) [Ratio] 41.98 kg/m2 Jennyfer Ruiz Other [employer] Other 09-01-2022 17:15-0500 Body temperature 98.4 [degF] Jennyfer Ruiz Other [employer] Other 09-01-2022 17:15-0500 Body weight 97.52 kg Jennyfer Ruiz Other [employer] Other 09-01-2022 17:15-0500 Respiratory rate 18 /min Jennyfer Ruiz Other [employer] Other 09-01-2022 17:15-0500 SaO2% (BldA) [Mass fraction] 99 % Jennyfer Ruiz Other [employer] Other 04-22-2022 14:30-0400 Body height 152.4 cm Jessenia Angel Other [employer] Other 04-22-2022 14:30-0400 Body mass index (BMI) [Ratio] 40.42 kg/m2 Jessenia Ortiz Other [employer] Other 04-22-2022 14:30-0400 Body weight 93.9 kg Jessenia Ortiz Other [employer] Other 04-22-2022 14:30-0400 Diastolic blood pressure 89 mm[Hg] Jessenia Ortiz Other [employer] Other 04-22-2022 14:30-0400 Respiratory rate 18 /min Jessenia Ortiz Other [employer] Other 04-22-2022 14:30-0400 SaO2% (BldA) [Mass fraction] 100 % Jessenia Ortiz Other [employer] Other 04-22-2022 14:30-0400 Systolic blood pressure 116 mm[Hg] Jessenia Ortiz Other [employer] Other 07-22-2021 11:00-0400 Body height 152.4 cm Jennyfer Ruiz Other [employer] Other 07-22-2021 11:00-0400 Body mass index (BMI) [Ratio] 38.08 kg/m2 Jennyfer Ruiz Other [employer] Other 07-22-2021 11:00-0400 Body temperature 96.2 [degF] Jennyfer Maravillamond Other [employer] Other 07-22-2021 11:00-0400 Body weight 88.45 kg Jennyfer Maravillamond Other [employer] Other 07-22-2021 11:00-0400 Respiratory rate 18 /min Jennyfer Maravillamond Other [employer] Other 07-22-2021 11:00-0400 SaO2% (BldA) [Mass fraction] 99 % Jennyfer Ruiz Other [employer] Other Encounters Encounter Date Encounter Type Care Provider Facility Start: 06-05-2024 End: 06-05-2024 ambulatory ABDOUL NADERER Not Available Start: 06-04-2024 End: 06-04-2024 ambulatory Joanne Cameron MD Facility:[facility] Start: 05-14-2024 End: 05-14-[address] [facility] Start: 05-07-2024 End: 05-07-2024 ambulatory [facility] Start: 04-16-2024 End: 04-16-2024 ambulatory Joanne Cameron MD Facility:[facility] Start: 03-26-2024 End: 03-26-2024 ambulatory ABDOUL ALBERTO Not Available Start: 03-15-2024 End: 03-15-2024 ambulatory [facility] Start: 02-21-2024 End: 02-21-2024 ambulatory LIN H TIMMIS Not Available Start: 02-17-2024 End: 02-17-2024 ambulatory Lin H Timmis Facility:[facility] Start: 02-17-2024 End: 02-17-2024 Patient encounter procedure Lin H Timmis [facility] Start: 01-16-2024 End: 01-16-2024 ambulatory LIN H TIMMIS Not Available Start: 12-20-2023 End: 12-20-2023 ambulatory ABDOUL NADERER Not Available Start: 10-04-2023 End: 10-04-2023 ambulatory ABDOUL NADERER Not Available Start: 09-22-2023 End: 09-22-2023 ambulatory Elisabeth Ma Other [employer] Other Start: 09-22-2023 Office outpatient vi sit 15 minutes Elisabeth Ma [facility] Start: 09-05-2023 End: 09-05-2023 ambulatory Joanne Cameron MD Facility:[facility] Start: 08-15-2023 End: 08-15-2023 ambulatory Joanne Cameron MD Facility:[facility] Start: 07-05-2023 End: 07-05-2023 ambulatory XIMENA SCALES Facility:[facility] Start: 07-05-2023 End: 07-05-2023 Patient encounter procedure XIMENA SCALES [facility] Start: 03-06-2023 End: 03-06-2023 Patient encounter procedure KEN Soler Work Phone: [facility] Work Phone: Start: 03-06-2023 End: 03-06-2023 ambulatory Leana Soler [facility] [employer] Other Start: 03-06-2023 Office outpatient vi sit 15 minutes Leana Soler [facility] Start: 12-06-2022 End: 12-07-[address] ISRA CHAN . Facility:[facility] Start: 11-17-2022 End: 11-18-[address] ABDOUL ALBERTO Facility:[facility] Start: 11-01-2022 End: 12-11-[address] ABDOUL ALBERTO Facility:[facility] Start: 10-30-2022 End: 10-31-[address] ABDOUL ALBERTO Facility:[facility] Start: 10-12-2022 End: 10-13-[address] ABDOUL ALBERTO Facility:[facility] Start: 10-04-2022 End: 10-04-2022 Patient encounter procedure Isra CHAN [facility] Start: 10-02-2022 End: 10-03-[address] ISRA CHAN . Facility:[facility] Start: 09-01-2022 End: 09-01-2022 ambulatory Jennyfer Ruiz Other [employer] Other Start: 09-01-2022 Office outpatient vi sit 15 minutes Jennyfer Ruiz [facility] Start: 08-27-2022 End: 08-28-[address] RIC QUEZADA Facility:[facility] Start: 07-18-2022 Encounter for genera l adult medical examination without abnormal findings DR ABDOUL ALBERTO [facility] Start: 07-13-2022 End: [address] ABDOUL ALBERTO Facility:[facility] Start: 07-13-2022 End: 2022 Encounter for general adult medical examination without abnormal findings DR ABDOUL ALBERTO Facility:[facility] Start: 06-23-2022 End: 06-24-[address] KATHY BARRAGAN . Facility:[facility] Start: 06-09-2022 End: 06-09-[address] KATHY BARRAGAN . Facility:[facility] Start: 06-02-2022 End: 06-02-[address] DOCTOR GOODSON Facility:[facility] Start: 04-22-2022 End: 04-22-2022 ambulatory Jessenia Ortiz Other [employer] Other Start: 04-22-2022 Office outpatient vi sit 15 minutes Jessenia Ortiz [facility] Start: 07-22-2021 End: 07-22-2021 ambulatory Jennyfer Ruiz Other [employer] Other Start: 07-22-2021 Office outpatient vi sit 15 minutes Jennyfer Ruiz [facility] Start: 07-08-2017 End: 07-09-2017 Ambulatory MINGO SCHUMACHER [facility] Procedures Date Procedure Procedure Detail Performing Clinician Start: 03-06-2023 X-ray of left foot CMV DRIVER Leana Soler Work Phone: Start: 07-08-2017 X-ray exam of abdomen Quintin SCHUMACHER Appendectomy Isra CHAN Cholecystectomy Isra KAISER Colonoscopy Israissa CHAN Hernia of abdominal cavity (disorder) Israissa CHAN Ligation of fallopian tube P atrick CHAN Lithotripsy Israissa CHAN Plan of Treatment Date Care Activity Detail Author Start: 07-10-2024 ambulatory Ambulatory Facility:[facility] Immunizations Immunization Date Immunization Notes Care Provider Fa wendi 05-11-2010 tetanus toxoid, redu jose juan diphtheria toxoid, and acellular pertussis vaccine, adsorbed Israissa CHAN [facility] 01-10-2007 varicella virus vaccine Patr jorje CHAN [facility] 12-07-2006 varicella virus vaccine Reglar jorje CHAN [facility] 04-25-2006 hepatitis B vaccine, pediatric or pediatric/adolescent dosage Israissa CHAN [facility] 12-20-2005 hepatitis B vaccine, pediatric or pediatric/adolescent dosage Israissa CHAN [facility] 11-15-2005 hepatitis B vaccine, pediatric or pediatric/adolescent dosage Israissa CHAN [facility] [facility] 03-10[facility]1999 DTaP, unspecified formulation Israissa CHAN [facility] 03-10-1999 measles, mumps and rubella virus vaccine Isra CLARITZA [facility] Payers Date Payer Category Payer Self-pay 2022 Medicaid [id number] 2022 Unknown 2017 Unknown [id number] 2.1 6.840.1.388613.19 1986 Unknown [id number] 2.16.84 0.1.109619.3.579.2.593 1986 Unknown [id number] 2.16.84 0.1.165541.3.579.2.593 1986 Unknown [id number] 2.16.84 0.1.886037.3.579.2.593 1986 Unknown [id number] 2.16.84 0.1.908966.3.579.2.593 1986 Unknown [id number] 2.16.84 0.1.162552.3.579.2.593 1986 Unknown [id number] 2.16.84 0.1.090881.3.579.2.593 1986 Unknown [id number] 2.16.84 0.1.106379.3.579.2.593 1986 Unknown [id number] 2.16.84 0.1.322745.3.579.2.593 1986 Unknown [id number] 2.16.84 0.1.419925.3.579.2.593 1986 Unknown [id number] 2.16.84 0.1.468630.3.579.2.593 1986 Unknown [id number] 2.16.84 0.1.765239.3.579.2.593 1986 Unknown [id number] 2.16.84 0.1.540893.3.579.2.1259 1986 Unknown [id number] 2.16.84 0.1.342266.3.579.2.1259 1986 Unknown [id number] 2.16.84 0.1.080664.3.579.2.1259 1986 Unknown [id number] 2.16.84 0.1.300526.3.579.2.1259 1986 Unknown [id number] 2.16.84 0.1.512416.3.579.2.1259 1986 Unknown [id number] 2.16.8 40.1.433491.3.579.2.727 1986 Unknown [id number] 2.16.8 40.1.826389.3.579.2.727 1986 Unknown [id number] 2.16.8 40.1.009348.3.579.2.727 1986 Unknown [id number] 2.16.8 40.1.629483.3.579.2.1245 1986 Unknown [id number] 2.16.8 40.1.059410.3.579.2.1244 1986 Unknown [id number] 2.16.8 40.1.035277.3.579.2.1244 1986 Unknown [id number] 2.16.84 0.1.373447.3.579.2.1259 1986 Unknown [id number] 2.16. 840.1.394666.3.579.2.196 1986 Unknown [id number] 2.16. 840.1.958888.3.579.2.196 1986 Unknown [id number] 2.16. 840.1.577745.3.579.2.196 1986 Unknown [id number] 2.16. 840.1.024921.3.579.2.196 1959 Unknown [id number] 1959 Unknown [id number] 2.1 6.840.1.709466.19 1959 Unknown [id number] Unknown [id number] 2.16.8 40.1.988994.19 Unknown [id number] 2.16.8 40.1.412133.3.579.2.531 Social History Date Type Detail Facility Unknown if ever smoked [employer] Other Sex Assigned At [facility] Start: 10-04-2022 End: 02-08-2023 Tobacco smoking status Never smoked tobacco (finding) [facility] Start: 1985 Sex Assigned At Female F [facility] Functional Status Date Assessment Result Facility 07-05-2023 Functional Status N/A [facility] 10-04-2022 Functional Status N/A [facility] Clinical Notes 07-22-2021 to 09-22-2023 Note Date & Type Note Facility 09-22-2023 Evaluation note Encounter Date Diagnosis Assessment Notes Sep, Dysuria (ICD-10 - R30.0) Discussed dipstick findings with patient. Advised patient that there is no evidence of acute UTI. Advised that this is likely related to stone. Recommended ER for further evaluation and workup. Patient verbalizes understanding and is agreeable with treatment plan [employer] Other 09-25-2023 Hospital Discharge instructions Patient Education [...] include: ?8 oz (237 mL) of milk, pvzdqry-ueswykokubpg-afxjy milk, and calcium- fortifiedfruit juice. Calcium-fortified means [...] ?Spinach (cooked), rhubarb, beets, sweet potatoes, and Russian chard. ?Peanuts. ?Potato chips, indian fries, and baked potatoes with skin on. ?Nuts and nut products. ?Chocolate. If you regularly take a diuretic medicine, make sure to eat at least 1 or 2 servings of fruits or vegetables that are high in potassium each day. These include: ?Avocado. ?Banana. ?Beltrami, prune, carrot, or tomato juice. ?Baked potato. [...] magnesium, fish oil, or vitamin B6. Take omnu-owe-evcuuzy and prescription medicines only as told by [...] Casseroles. Pizza. Lasagna. Frozen meals. Potato chips. Romanian fries. The items listed above may not [...] provider. Document Revised: 05/17/2022 Document Reviewed: 05/17/2022 [employer] Patient Education 2022 [employer]. Follow Up Care 02/08/2023 16:17:30 With:XIMENA SCALES PA-C, URL Address: [facility] [place] [address] [phone] When: Unknown Comments:2 yr w/ BOGDAN and QING [facility] 06-18-2023 Evaluation note* Encounter Date Diagnosis Assessment [...] fever. Patient verbalized understanding of treatment plan. [employer] Other 01-16-2023 Hospital Discharge instructions Patient Education [...] include: ?Spinach. ?Rhubarb. ?Beets. ?Potato chips and indian fries. ?Nuts. If you regularly take a diuretic medicine, make sure to eat at least 1 2 fruits or vegetables high in potassium each day. These include: ?Avocado. ?Banana. ?Beltrami, prune, carrot, or tomato juice. ?Baked potato. [...] Casseroles. Pizza. Lasagna. Frozen meals. Potato chips. Romanian fries. Summary You can reduce your risk [...] 12/31/2011 Document Revised: 12/26/2019 Document Reviewed: 08/16/2017 [employer] Patient Education 2020 [employer]. Follow Up Care 08/30/2022 15:20:43 With:CLARITZA JOHNSTON, Isra Lorenzana, URL Address: [facility] [address] , [place] [address]- When: Unknown [facility] 12-14-2022 Evaluation note* Encounter Date Diagnosis Assessment [...] needed for cough or shortness of breath [employer] Other 08-04-2022 Evaluation note* Encounter Date Diagnosis [...] care provider if no improvement of symptoms. [employer] Other 11-03-2021 Evaluation note* Encounter Date Diagnosis [...] Patient care instructions given in writting by [facility] Care At Home document. [employer] Other Evaluation + Plan note Future Appointments Appointment Date:01/10/2023 03:15:00 PM Scheduled Provider:Isra CHAN MD Location:[facility] Appointment Type:URO Office Visit Diagnostic Tests Pending * Creatinine 10/04/22 [facility] Evaluation + Plan note Future Appointments Appointment Date:07/10/2024 02:00:00 PM Scheduled Provider:XIMENA SCALES PA-C Location:[facility] Appointment Type:URO Office Visit [facility] evalnxuhem noteNo assessment information available [facility] Work Phone: [facility] general Narrative - Reported* Type Description Date Medical History kidney stones Surgical History C section Surgical History appendectomy Surgical History cholecystectomy Surgical History hernia repair Surgical History lithotripsy Surgical History wisdom teeth extract Hospitalization History see above [employer] Other [facility] general Narrative - Reported* Type Description Date Medical History kidney stones Medical History anxiety Medical History migraine headache Surgical History C section Surgical History appendectomy Surgical History cholecystectomy Surgical History hernia repair Surgical History lithotripsy Surgical History wisdom teeth extract Hospitalization History see above [employer] Other Hismqcg general Narrative - Reported* Type Description Date Medical History kidney stones Medical History anxiety Medical History migraine headache Surgical History C section Surgical History appendectomy Surgical History cholecystectomy Surgical History hernia repair Surgical History lithotripsy Surgical History wisdom teeth extract Surgical History cortisone shots in back Hospitalization History see above [employer] Other Hospital course Narrative No data available for this section [facility] Discharge instructions No data available for this section [facility] No data available for this section [facility] Summary Purpose Family History No Family History [...] section and content) DATE CREATED AUTHOR 03/14/2018 [facility] DATE CREATED AUTHOR AUTHOR'S ORGANIZ ATION 01/19/2023 [facility] DATE CREATED AUTHOR AUTHOR'S ORGANIZ ATION 03/19/2023 [facility] DATE CREATED AUTHOR AUTHOR'S ORGANIZ ATION 04/03/2024 [facility] EPIC DATE CREATED AUTHOR AUTHOR'S ORGANIZ ATION 05/10/2024 [facility] DATE CREATED AUTHOR AUTHOR'S ORGANIZ ATION 05/12/2024 [facility] DATE CREATED AUTHOR AUTHOR'S ORGANIZ ATION 05/15/2024 [facility] DATE CREATED AUTHOR AUTHOR'S ORGANIZ ATION 06/07/2024 [facility] EPIC DATE CREATED AUTHOR AUTHOR'S ORGANIZ ATION 06/15/2024 [facility] REASON FOR VISIT (unrecogniz ed section [...] BE BASED ON THE PRIMARY CLINICAL RECORDS. [employer] [facility]. provides no warranty or guarantee of the accuracy or completeness of information in this document.
[2024-06-18 07:33] VITALS: BP 123/85; PULSE 82; TEMP 37; O2SAT 97
[2024-06-18 07:40] LABS: HCG Qualitative NEGATIVE (NEGATIVE); Internal Control Within Normal Limits
[2024-06-18] MEDS: 0.9 % SODIUM CHLORIDE 500 ML IV (07:46)
--- NOTE | 2024-06-18 08:26 | P.ON_ITS ---
Date of procedure: 06/18/24 Pre-op diagnosis: Pain due to thoracic spondylosis without myelopathy Post-op diagnosis: same as pre-op Procedure: Procedure: Left T10-11, 11-12 radiofrequency ablation Medications: Bupivacaine 0.25% 3cc, lidocaine 2% 3cc, dexamethasone 10mg The patient was seen and examined in the preoperative holding area.? The site was marked.? Written informed consent was obtained and placed on the chart.? The patient was brought to the medical procedure unit and placed in the prone position.? A timeout was completed verifying correct patient, procedure, positioning, and special requirements.? The skin overlying the target points, the designated medial branch, were prepped and draped in the usual sterile fashion.? The target point was achieved with a 20-gauge 15 cm with a 10 mm curved active tip radiofrequency cannula under direct fluoroscopic visualiza tion.? The needle was inserted at level T10 on the left side. Needle tip position was confirmed with lateral fluoroscopic position.? Motor stimulation was carried out at 2 Hz up to 5 volts with the absence of extremity activity.? This was repeated at level T11, 12 on left side.?? Sensory stimulation was carried out.? Concordant pain was realized at the above- mentioned sites.? Then radiofrequency lesioning was carried out times 90 seconds at 80 degrees times 2 lesions at each level.? The radiofrequency probe was removed prior to cannula removal.? The above-mentioned injectate was placed in 1 mL increments.? The needle was removed.? Insertion sites were covered.? The patient was taken to the postoperative recovery area and monitored for an appropriate length of time before being found suitable for discharge in the company of a responsible adult. Anesthesia: MAC Surgeon: Joanne Cameron Pathology: none sent Condition: stable Disposition: no change
[2024-06-18] MEDS: BUPIVACAINE HCL 0.25% PF 25 MG/10 ML VIAL 2 ML INJ (08:27)
[2024-06-18] MEDS: DEXAMETHASONE SOD PHOS 10 MG/ML VIAL INJ (08:28)
[2024-06-18] MEDS: LIDOCAINE HCL 2% 400 MG/20 ML MDV 6 ML INJ (08:28)
[2024-06-18 08:30] VITALS: BP 99/60; PULSE 80; TEMP 36.7; O2SAT 97
[2024-06-18 08:34] VITALS: BP 90/57; PULSE 82; TEMP 36.7; O2SAT 95
== END 2024-06-18 08:55 | disposition home or self-care (01) ==
LOC: SURGOUT 07:16
PROVIDERS: PCP Family Medicine; Visit Provider Anesthesiology
PROC: (CPT 01992; principal; 2024-06-18 08:10)
DX: M47.814 Spondylosis without myelopathy or radiculopathy, thoracic region (principal)
CPT/HCPCS: 01992; 36415; 64633; 64634; 84703; J0665; J1100; J2704

== ENCOUNTER 2024-06-30 09:04 | Outpatient (OUT) | payer OTHER, SELFPAY ==
--- NOTE | 2024-06-30 | XR_ITS ---
The [address] [address] Patient Name: LUL BRITTON MRN: [id number] date: 1985 Sex: F Assigned Patient Location: [place] Current Patient Location: Accession/Order Number: [id number] Exam Date: 06/30/2024 09:13 Report Date: 07/01/2024 09:06 At the request of: CHARLOTTE SCALES Procedure: XR abdomen 1V EXAMINATION: XR abdomen 1V HISTORY: KIDNEY STONE N20.0 COMPARISON: XR abdomen 09/22/2023 FINDINGS: KIDNEY/URETER - RIGHT: No visible renal or ureteral calcifications. KIDNEY/URETER - LEFT: No visible renal or ureteral calcifications. PELVIS: No visible ureteral stones. Clearing of previously seen lower right pelvic calcification. BOWEL: No abnormal dilation or deviation. BONES: No acute abnormality. OTHER: Surgical clips within right upper quadrant. XR/XR abdomen 1V IMPRESSION: 1. No visible urinary tract calculi. Electronically authenticated by: CHELY DALEY Date: 07/01/2024 09:06
--- NOTE | 2024-06-30 | US_ITS ---
The [place] [id number] Patient Name: LUL BRITTON MRN: [id number] date: 1985 Sex: F Assigned Patient Location: US Current Patient Location: US Accession/Order Number: [id number] Exam Date: 06/30/2024 09:10 Report Date: 07/01/2024 09:11 At the request of: CHARLOTTE SCALES Procedure: US renal bladder EXAMINATION: US renal bladder HISTORY: ABDOMINAL PAIN R10.9 COMPARISON: No relevant comparison available. TECHNIQUE: Ultrasound examination was performed of the kidneys and urinary bladder. FINDINGS: RIGHT KIDNEY: Isoechoic area within mid body/superior pole, 2.8 x 1.9 x 2.5 cm; prominent cortical parenchymal is favored over a mass. Several slightly hyperechoic foci, possibly representing stones. Normal parenchymal echogenicity. Color Doppler demonstrates blood flow within the kidney. Kidney: 10.8 x 4.5 x 3.6 cm LEFT KIDNEY: Contains a 1.1 cm benign-appearing cyst. Several slightly hyperechoic foci, possibly representing stones. Normal parenchymal echogenicity. Color Doppler demonstrates blood flow within the kidney. Kidney: 12.4 x 4.7 x 4.9 cm BLADDER: No visible wall thickening, mass, or calculi. Post void residual: 0 mL URETERAL JETS: Visualized bilaterally. US/US renal bladder IMPRESSION: 1. Prominent cortical parenchymal within the right kidney versus mass. I suspect this represents artifact and represents slightly prominent parenchyma. However, consider CT imaging of the kidneys without and with IV contrast for further evaluation. 2. Several small slightly hyperechoic foci within the kidneys which may represent nonobstructing stones. No visible stones on the abdominal radiograph obtained on the same day. This could also be evaluated during CT imaging. Electronically authenticated by: CHELY DALEY Date: 07/01/2024 09:11
--- OUTSIDE RECORDS SUMMARY | 2024-06-30 09:07 | XMS_ITS | CCD ---
Author Organization [facility] Care Team Providers Care Porter Sample Case Name Role Phone WINSOME, MINGO S Unavailable Unavailable BETANCUR, MAYE P Unavailable Unavailable WINSOME, MINGO S Unavailable Unavailable BETANCUR, MAYE P Unavailable Unavailable SaraJennyfer Unavailable Jessenia Ortiz Unavailable ABDOUL ABLERTO Primary Care Physician CHAN ., DR CASTILLO [...] Unavailable NADERER, DR ABDOUL Ayala Attending Unavailable NADERESalomón, DR ABDOUL Ayala Admitting Unavailable Leana Soler Unavailable KEN Soler Attending Provider Leana Soler Attending Unavailable Leana Soler Admitting Unavailable NO FAMILY, PHYSICIAN Primary Care Unavailable Elisabeth Ma Unavailable ABDOUL ALBERTO Attending Unavailable ABDOUL ALBERTO Attending Unavailable LIN MORALES Attending Unavailable ABDOUL ALBERTO Referring Unavailable LIN MORALES Attending Unavailable ABDOUL ALBERTO Attending Unavailable GIAN NEGRETE Attending Unavailable GORGE WELDON Attending Unavailable ABDOUL ALBERTO Attending Unavailable CADEN, GIAN Mehdi Admitting Unavailable CADEN, GIAN Mehdi Attending Unavailable Giedraitis , Andrius Marshall Attending Unavailable Giedraitis , Andrius Vytautstacy Attending Unavailable Giedraitis , Andrius Vytautstacy Attending Unavailable Giedraitis , Andrius Vytautas Attending Unavailable Giedraitis , Andrius Vytautstacy Attending Unavailable ANAMIKA SCALES Attending Unavailab ANAMIKA Painter Attending Unavailab Lin Vega Referring Unavailable Lin Morales Attending Unavailable Lin Morales Admitting Unavailable Allergies Allergy Classification Reported Allergen(s) Allergy Type Date of Onset Reaction(s) Facility Penicillins (antibiotic) (1 source) Penicillin G; Translations: [penicillin G benzathine] Drug Allergy Eruption of skin (disorder) [facility] (8 sources) Penicillin G Benzathine; Translations: [Penicillin G] Drug allergy rash, Eruption of skin (disorder) [facility] (1 source) Penicillin Drug Allergy [facility] (2 sources) Penicillins; Translations: [PENICILLINS] Propensity to adverse reactions to drug (disorder) 4 [facility] 3 Repository Medications Current Medications Medication Drug [...] 2 tablets Orally Once a day Not-Taking/PRN [id number] 60 actuat albuterol 0.09 mg/actuat metered dose [...] hua Not-Taking hydroCHLOROthiaz hua Active polymyxin b 54279 unt/ml / trimethoprim 1 mg/ml ophthalmic solution (1 source) Dihydrofolate Reductase Inhibitor Antibacterial, Polymyxin-class Antibacterial Start: 02-01-2023 take 1 drop(s) into the eye(s) every three hours Polytrim 59487-8.1 UNIT/ML 1 drop into affected eye Ophthalmic every 3 hours while awake for January, Not-Taking Polytrim 88383-2.1 UNIT/ML (1 source) Start: 02-01-2023 take 1 drop(s) into the eye(s) every three hours as needed Polytrim 74605-8.1 UNIT/ML 1 drop into affected eye Ophthalmic [...] Septum] Onset: 03-15-2024 Episodic Other upper respiratory disease (2 sources) Nasal congestion; Translations: [Nasal congestion] Onset: 03-15-2024 Episodic Other upper respiratory disease (2 sources) Hypertrophy of nasal turbinates; Translations: [Hypertrophy of nasal turbinates] Onset: 03-15-2024 Episodic Other upper respiratory infections [...] Test Name Value Interpretation Reference Range Facility Reminderson 06-26-2024 Reminders Reminders From: Ailin Dubose To: EU - Recalls Yordy; Sent: 07/05/2023 15:50:31 EDT Show up: 06/19/2024 15:50:00 EDT Subject: KUB and QING prior to appt Reminder Message Please Remember to:_have pt complete KUB and QING prior to appt. Prefers [facility]. Appt 07/10/24. Faxed order to [facility] (per reminder) for KUB and QING and scanned into chart. Called pt and LM reminding her to complete these prior to her appt on 07/10. Informed her I faxed the order to [facility] and that the xray can be done at any time but the QING will need scheduled. I gave her the phone # for [facility] CS so she can schedule the QING and our phone # if she has any questions. Normal [facility] CT Maxillofacial w/o Contras ton 02-21-2024 CT [...] low as reasonably achievable. Ordering Provider: Lin Morales FINAL REPORT Dictated: 02/21/2024 2:24 pm Fidel Diamond DO Signed (Electronic Signature): 02/21/2024 2:24 pm Signed by: Fidel Diamond DO Transcribed by: ADILENE Technologist: GALLO [facility] Consent for Treatmenton 01-19 Consent for Treatment [id number] 0TIFF [facility] Physician Orderon 01-26-2024 Physician Order [id number] 0TIFF Normal [facility] RAD - MISCon 09-23-2023 RAD - MISC [id number] 0TIFF [facility] RAD - Ultrasound Reporton RAD - Ultrasound Report [id number] 0TIFF [facility] Urinalysis - AUTOMATEDon Appearance (U) clear [employer] Other Bilirubin Ql (U) Negative [employer] Other Color (U) yellow [employer] Other Glucose Ql (U) Negative [employer] Other Hemoglobin Ql (U) small [employer] Other Ketones Ql (U) Negative [employer] Other Leukocyte esterase Test strip Ql (U) Negative [employer] Other Nitrite Ql (U) Negative [employer] Other pH (U) 7.0 [pH] [employer] Other Protein Ql (U) Negative [employer] Other Specific gravity (U) [Rel density] 1.025 [employer] Other Urobilinogen (U) [Mass/Vol] 0.2 mg/dL [employer] Other Urinalysis - AUTOMATED [employer] Other RAD - MISCon 07-08-2023 RAD - MISC [id number] 0TIFF Normal [facility] Screenson 07-06-2023 Screens [id number] 0TIFF Normal [facility] Ambulatory Visit Summaryon 1 Ambulatory Visit Summary LUL BRITTON :1985 Visit Date:07/05/2023 Ambulatory Visit Instructions Your Diagnosis Kidney stones Flank pain History of kidney stones Tests Performed Urnls Dip Stick Auto w/o Microscopy POC 16604 US Renal -- Results Pending -- XR [...] XIMENA SCALES PA-C Where: [facility] Boris Roe [facility] Urology Office/Clinic Noteon 07-05-2023 Urology Office/Clinic Note [...] Contact Information YORDY WILLSON, XIMENA Lam, URL [address] [address] [phone] Additional Instructions: 1 yr w/ KUB and [...] Protein Urine Dipstick: Negative (07/05/23 15:24:00) Specific [place] Urine Dipstick: <=1.005 (07/05/23 15:24:00) Urine Appearance Urine Dipst (more content not included)... Normal [facility] Comment on above: Result Comment: Elec tronically Signed By: XIMENA SCALES PA-C\.br\Date and Time Signed: 07/05/23 16:45 EDT\.br\Electronically Co-Signed By: Ailin Dubose\.br\Date and Time Co-Signed: 07/05/23 15:48 EDT RAD - MISCon 06-30-2023 RAD - MISC [id number] 0TIFF Normal [facility] XR foot LT min 3V*on 023 XR foot LT min 3V* [facility] Main [address] [address] XRay Report Signed Patient: Lul Britton MR#: [id number] 6 : 1985 Acct:[id number] Age/Sex: 37 / F ADM Date: 03/06/23 Loc: XDUCLY Room: Type: [facility] CLI Attending Dr: Leana Soler APRN Copies to: [...] Selena Thomson M.D.03/06/2023 2:30 PM Dictation Location: [place] [address] Transcribed By: [facility] 03/06/23 1430 Dictated By: Selena Thomson MD 03/06/23 1429 Signed By: 03/06/23 1430 Normal [facility] XR foot LT min 3V* [facility] [employer] Other XR foot LT min 3V* [facility] Main [facility] [employer] Other XR foot LT min 3V* [address] [place] [address] [employer] Other XR foot LT min 3V* [address] [employer] Other XR foot LT min 3V* XRay Report enymotion [facility] [employer] Other XR foot LT min 3V* Signed [employer] Other XR foot LT min 3V* Patient: Lul Britton MR#: [id number] [facility] [employer] Other XR foot LT min 3V* 6 [employer] Other XR foot LT min 3V* : 1985 Acct:[id number] [employer] Other XR foot LT min 3V* Age/Sex: 37 / F ADM Date: 03/06/23 [employer] Other XR foot LT min 3V* Loc: XDUCLY Room: Type: [facility] [employer] Other XR foot LT min 3V* Attending Dr: Leana Soler [facility] [employer] Other XR foot LT min 3V* Copies to: Leana Soler [facility] [employer] Other XR foot LT min 3V* Ordering Provider: Leana Soler [facility] [employer] Other XR foot LT min 3V* Date of Service: 03/06/23 [employer] Other XR foot LT min 3V* XR/XR foot LT min 3V*: M79.672 [employer] Other XR foot LT min 3V* LEFT FOOT - 3 views [employer] Other XR foot LT min 3V* CLINICAL DATA: Dorsa l foot pain for the past 5 days. No injury [employer] Other XR foot LT min 3V* COMPARISON: None [employer] Other XR foot LT min 3V* AP, lateral and oblique views were obtained. There is no evidence of fracture or dislocation. [employer] Other XR foot LT min 3V* There are posterior and plantar calcaneal spurs. There is soft tissue swelling over the dorsum of [employer] Other XR foot LT min 3V* foot. The soft tissu es of the ankle are also prominent. [employer] Other XR foot LT min 3V* XR/XR foot LT min 3V* [employer] Other XR foot LT min 3V* IMPRESSION: [employer] Other XR foot LT min 3V* NO ACUTE BONY FINDINGS. [employer] Other XR foot LT min 3V* Impression dictated by: Selena Thomson M.D.03/06/2023 2:30 PM [employer] Other XR foot LT min 3V* Dictation Location: [address] [employer] Other XR foot LT min 3V* Transcribed By: NESSA 03/06/23 1430 [employer] Other XR foot LT min 3V* Dictated By: Selena Thomson MD 03/06/23 1429 [employer] Other XR foot LT min 3V* Signed By: [employer] Other XR foot LT min 3V* 03/06/23 1430 [facility] [employer] Other CITRATE URINE 24HRon 023 Citric Acid, U, 24hr 410 mg/24 hr Normal 320-1240 [facility] Comment on above: Result Comment: This test was developed and its performance characteristics determined by [facility]. It has not been cleared or approved by the Food and Drug Administration. Performed By: #### O X24HR #### [facility] [address] [place] [address] Dr. Neil Krishnamurthy Citric Acid, Urine 200 mg/L Normal Undefined [facility] Comment on above: Performed By: #### O X24HR #### [facility] [address] [place] [address] Dr. Neil Krishnamurthy OXALATE 24HR URINEon 023 Oxalates, Urine 7 mg/L Normal Undefined [facility] Comment on above: Performed By: #### O X24HR #### [facility] [address] [place] [address] Dr. Neil Krishnamurthy Oxalates, Urine 24hr 14 mg/24 hr Normal 4-31 [facility] Comment on above: Performed By: #### O X24HR #### [facility] [address] [place] [address] [address] Neil Krishnamurthy MAGNESIUM 24HR URINEon 12-07 Magnesium 24hr Urine 116.9 mg/24 hr Normal 12.0-293.0 [facility] Comment on above: Performed By: #### C O2, CL, BUN, CREA, URIC, K, CA, NA #### [facility] [address] [place] [address] [address] Neil Krishnamurthy Magnesium UR 5.7 mg/dL Normal Not Estab. [facility] Comment on above: Performed By: #### C O2, CL, BUN, CREA, URIC, K, CA, NA #### [facility] [address] [place] [address] Dr. Neil Krishnamurthy PHOSPHORUS 24HR URINEon 11-18 Phosphorus, Urine 56.6 mg/dL Normal Not Estab. The [facility] Comment on above: Performed By: #### O X24HR #### [facility] [address] [address] [address] Neil Krishnamurthy Phosphorus, Urine 24hr 1160 mg/24 hr Critically high 261-1078 [facility] Comment on above: Performed By: #### O X24HR #### [facility] [address] [address] [address] Neil Krishnamurthy PTH INTACTon 12-07-2022 PTH, Intact 41 pg/mL Normal 15-65 [facility] Comment on above: Performed By: #### O X24HR #### [facility] [address] [address] [address] Neil Krishnamurthy URIC ACID 24 HR URINEon 11-18 Uric Acid, Urine 23.4 mg/dL Normal Not Estab. [facility] Comment on above: Performed By: #### O X24HR #### [facility] [address] [address] [address] Neil Krishnamurthy Uric Acid, Urine 24hr 479.7 mg/24 hr Normal 173.7-902.1 [facility] Comment on above: Performed By: #### O X24HR #### [facility] [address] [place] [address] Dr. Neil Krishnamurthy BUNon 12-06-2022 Urea nitrogen [Mass/Vol] 12.0 mg/dL Normal 7.0-18.0 [facility] Comment on above: Performed By: #### C O2, CL, BUN, CREA, URIC, K, CA, NA #### [facility] [address] [place] [address] Dr. Neil Krishnamurthy CALCIUMon 12-06-2022 Calcium [Mass/Vol] 8.6 mg/dL Normal 8.5-10.1 [facility] Comment on above: Performed By: #### O X24HR #### [facility] [address] [place] [address] Dr. Neil Krishnamurthy CALCIUM 24 HR URINEon 2022 CALC, 24 HR UR 479.7 mg/24 hr Critically high 100.0-300.0 [facility] Comment on above: Performed By: #### V AGINT #### [facility] [address] [place] [address] Dr. Neil Krishnamurthy UR CALCIUM 23.4 mg/dL Critically high 5.1-21.0 [facility] Comment on above: Performed By: #### V AGINT #### [facility] [address] [place] [address] Dr. Neil Krishnamurthy UR TOT VOL 2050 ml/24 HR Normal The [facility] Comment on above: Performed By: #### V AGINT #### [facility] [address] [place] [address] Dr. Neil Krishnamurthy Performed By: #### C O2, CL, BUN, CREA, URIC, K, CA, NA #### [facility] [address] [place] [address] Dr. Neil Krishnamurthy CHLORIDEon 12-06-2022 Chloride [Moles/Vol] 106 mmol/L Normal 98-107 [facility] Comment on above: Performed By: #### C O2, CL, BUN, CREA, URIC, K, CA, NA #### [facility] [address] [place] [address] Dr. Neil Krishnamurthy CO2on 12-06-2022 CO2 [Moles/Vol] 25.7 mmol/L Normal 21.0-32.0 [facility] Comment on above: Performed By: #### C O2, CL, BUN, CREA, URIC, K, CA, NA #### [facility] [address] [place] [address] Dr. Neil Krishnamurthy CREA 24 HR URINEon CREA, 24 HR UR 1371.04 mg/24 hr Normal 800.00-1, 800. 00 [facility] Comment on above: Performed By: #### C O2, CL, BUN, CREA, URIC, K, CA, NA #### [facility] [address] [place] [address] Dr. Neil Krishnamurthy URINE CREAT 66.88 mg/dL Normal 20.00-300.00 [facility] Comment on above: Performed By: #### C O2, CL, BUN, CREA, URIC, K, CA, NA #### [facility] [address] [place] [address] Dr. Neil Krishnamurthy CREATININEon 12-06-2022 Creatinine [Mass/Vol] 0.78 mg/dL Normal 0.55-1.02 [facility] Comment on above: Performed By: #### C O2, CL, BUN, CREA, URIC, K, CA, NA #### [facility] [address] [place] [address] Dr. Neil Krishnamurthy EGFR-AF COLOMBIAN >60 Normal >=60 [facility] Comment on above: Performed By: #### C O2, CL, BUN, CREA, URIC, K, CA, NA #### [facility] [address] [place] [address] Dr. Neil Krishnamurthy EGFR-NON AF COLOMBIAN >60 Normal >=60 [facility] Comment on above: Performed By: #### C O2, CL, BUN, CREA, URIC, K, CA, NA #### [facility] [address] [place] [address] [address] Neil Krishnamurthy NAon 12-06-2022 Sodium [Moles/Vol] 139 mmol/L Normal 136-145 [facility] Comment on above: Performed By: #### C O2, CL, BUN, CREA, URIC, K, CA, NA #### [facility] [address] [place] [address] Dr. Neil Krishnamurthy POTASSIUMon 12-06-2022 Potassium [Moles/Vol] 4.1 mmol/L Normal 3.5-5.1 [facility] Comment on above: Performed By: #### C O2, CL, BUN, CREA, URIC, K, CA, NA #### [facility] [address] [place] [address] Dr. Neil Krishnamurthy SODIUM 24 HR URINEon 023 NA, 24 HR UR 211 mmol/24 hr Normal 40-220 [facility] Comment on above: Performed By: #### C O2, CL, BUN, CREA, URIC, K, CA, NA #### [facility] [address] [place] [address] Dr. Neil Krishnamurthy Sodium (U) [Moles/Vol] 103 mmol/L Critically high 30-90 [facility] Comment on above: Performed By: #### C O2, CL, BUN, CREA, URIC, K, CA, NA #### [facility] [address] [place] [address] Dr. Neil Krishnamurthy URIC ACID SERUMon 12-06-2022 Urate [Mass/Vol] 5.0 mg/dL Normal 2.6-6.0 [facility] Comment on above: Performed By: #### C O2, CL, BUN, CREA, URIC, K, CA, NA #### [facility] [address] [place] [address] Dr. Neil Krishnamurthy ECHOCARDIO M/2D COMPLETEon 0 11-17-2022 ECHOCARDIO M/2D COMPLETE Patient: LUL BRITTON Exam Date: 11/17/2022 : 1985 Gender:F Ordering : DR ABDOUL ALBERTO . Admission #: [id number] Family : Order #: [id number] CLICK HERE TO VIEW EXAM ECHOCARDIOGRAM REPORT [...] Onofre M.D. on 11/18/2022 at 09:50 Normal [facility] US PELVIS AND TRANSVAGon US PELVIS [...] RIC QUEZADA Date: 2022-11-01 07:20 Normal [facility] XR RIBS RT PA Karl 3 [...] RIC QUEZADA Date: 2022-11-01 07:12 Normal [facility] XR TSPINE MIN 4 VIEWSon 10-20 [...] by: RIC QUEZADA Date: 2022-11-01 07:09 Normal [facility] CREATININEon 10-12-2022 Creatinine [Mass/Vol] 0.91 mg/dL Normal 0.55-1.02 [facility] Comment on above: Performed By: #### O X24HR #### [facility] [address] [place] [address] Dr. Neil Krishnamurthy EGFR-AF COLOMBIAN >60 Normal >=60 [facility] Comment on above: Performed By: #### O X24HR #### [facility] [address] [place] [address] Dr. Neil Krishnamurthy EGFR-NON AF COLOMBIAN >60 Normal >=60 [facility] Comment on above: Performed By: #### O X24HR #### [facility] [address] [place] [address] Dr. Neil Krishnamurthy XR IVPon 10-12-2022 XR IVP EXAMINATION: XR IVP HISTORY: Kidney stone COMPARISON: No relevant comparison available. TECHNIQUE: After obtaining patient consent a electrolysist image was obtained followed by injection of [...] RIC QUEZADA Date: 2022-10-12 09:48 Normal [facility] XR KUB 1 VIEWon 10-05-2022 XR [...] by: RIC QUEZADA Date: 2022-10-05 07:35 Normal [facility] COVID/FLU RT-PCRon 2 SARS-CoV-2 (COVID-19) RNA BRANDIE+probe Ql (Unsp spec) Negative [employer] Other COVID/FLU RT-PCR Negative [employer] Other XR KUB 1 VIEWon 08-30-2022 XR [...] by: RIC QUEZADA Date: 2022-08-30 07:28 Normal [facility] CBC AUTO DIFFon 07-13-2022 BASO # 0.0 103/ul Normal 0.0-0.1 [facility] Comment on above: Performed By: #### V AGINT #### [facility] [address] [place] [address] Dr. Neil Krishnamurthy Basophils/100 WBC (Bld) 0.5 % Normal 0.2-2.0 [facility] Comment on above: Performed By: #### V AGINT #### [facility] [address] [place] [address] Dr. Neil Krishnamurthy EO # 0.2 103/ul Normal 0.0-0.7 [facility] Comment on above: Performed By: #### V AGINT #### [facility] [address] [place] [address] Dr. Neil Krishnamurthy Eosinophils/100 WBC (Bld) 1.9 % Normal 0.9-7.0 [facility] Comment on above: Performed By: #### V AGINT #### [facility] [address] [place] [address] Dr. Neil Krishnamurthy Erythrocyte distribution width (RBC) [Ratio] 11.7 % Normal 11.0-15.0 [facility] Comment on above: Performed By: #### V AGINT #### [facility] [address] [place] [address] Dr. Neil Krishnamurthy Hematocrit (Bld) [Volume fraction] 41.1 % Normal 36.0-48.0 [facility] Comment on above: Performed By: #### V AGINT #### [facility] [address] [place] [address] Dr. Neil Krishnamurthy Hemoglobin (Bld) [Mass/Vol] 13.7 g/dL Normal 12.0-16.0 [facility] Comment on above: Performed By: #### V AGINT #### [facility] [address] [place] [address] Dr. Neil Krishnamurthy IG # 0.03 10e3/ul Normal 0.00-0.03 [facility] Comment on above: Performed By: #### V AGINT #### [facility] [address] [place] [address] Dr. Neil Krishnamurthy IG % 0.4 % Normal 0.0-0.5 [facility] Comment on above: Performed By: #### V AGINT #### [facility] [address] [place] [address] Dr. Neil Krishnamurthy LYMPH # 2.8 103/ul Normal 1.2-3.8 [facility] Comment on above: Performed By: #### V AGINT #### [facility] [address] [place] [address] Dr. Neil Krishnamurthy Lymphocytes/100 WBC (Bld) 32.9 % Normal 20.5-60.0 [facility] Comment on above: Performed By: #### V AGINT #### [facility] [address] [place] [address] Dr. Neil Krishnamurthy MANUAL DIFF REQ NO Normal [facility] Comment on above: Performed By: #### V AGINT #### [facility] [address] [place] [address] Dr. Neil Krishnamurthy MCH (RBC) [Entitic mass] 30.4 pg Normal 26.7-34.0 [facility] Comment on above: Performed By: #### V AGINT #### [facility] [address] [place] [address] Dr. Neil Krishnamurthy MCHC (RBC) [Mass/Vol] 33.3 g/dL Normal 29.9-35.2 [facility] Comment on above: Performed By: #### V AGINT #### [facility] [address] [place] [address] Dr. Neil Krishnamurthy MCV (RBC) [Entitic vol] 91.3 fL Normal 81.0-99.0 [facility] Comment on above: Performed By: #### V AGINT #### [facility] [address] [place] [address] Dr. Neil Krishnamurthy MONO # 0.7 103/ul Normal 0.3-0.8 [facility] Comment on above: Performed By: #### V AGINT #### [facility] [address] [place] [address] Dr. Neil Krishnamurthy Monocytes/100 WBC (Bld) 8.0 % Normal 1.7-12.0 [facility] Comment on above: Performed By: #### V AGINT #### [facility] [address] [place] [address] Dr. Neil Krishnamurthy NEUT # 4.8 103/ul Normal 1.4-6.5 [facility] Comment on above: Performed By: #### V AGINT #### [facility] [address] [place] [address] Dr. Neil Krishnamurthy Neutrophils/100 WBC (Bld) 56.3 % Normal 43.0-75.0 [facility] Comment on above: Performed By: #### V AGINT #### [facility] [address] [place] [address] Dr. Neil Krishnamurthy Platelet mean volume (Bld) [Entitic vol] 11.0 fL Normal 9.5-13.5 [facility] Comment on above: Performed By: #### V AGINT #### [facility] [address] [place] [address] Dr. Neil Krishnamurthy PLT 242 103/ul Normal 150-450 [facility] Comment on above: Performed By: #### V AGINT #### [facility] [address] [place] [address] Dr. Neil Krishnamurthy RBC 4.50 106/ul Normal 4.20-5.40 [facility] Comment on above: Performed By: #### V AGINT #### [facility] [address] [place] [address] Dr. Neil Krishnamurthy WBC 8.5 103/ul Normal 4.0-11.0 [facility] [facility] Comment on above: Performed By: #### V AGINT #### [facility] [address] [place] [address] Dr. Neil Krishnamurthy GLYCOHEMOGLOBIN A1Con 2021 ADA RECOMMENDATION SEE BELOW Normal [facility] Comment on above: Result Comment: ADA RECOMMENDED LIMIT 4.0 - 6.0 ADA THERAPEUTIC TARGET < 7.0 ACTION SUGGESTED > 7.0 Performed By: #### V AGINT #### [facility] [address] [place] [address] Dr. Neil Krishnamurthy Glucose [Mass/Vol] 97 mg/dL Normal [facility] Comment on above: Performed By: #### V AGINT #### [facility] [address] [place] [address] Dr. Neil Krishnamurthy HbA1c (Bld) [Mass fraction] 5.0 % Normal 4.5-6.2 [facility] Comment on above: Performed By: #### V AGINT #### [facility] [address] [address] [address] Neil Krishnamurthy LIPID PROFILEon 07-13-2022 CHOL-HDL RATIO NORM SEE BELOW Normal [facility] Comment on above: Result Comment: 3.3 - 4.4 LOW RISK 4.4 - 7.1 AVERAGE RISK 7.1 - 11.0 MODERATE RISK >11.0 HIGH RISK Performed By: #### O X24HR #### [facility] [address] [address] [address] Neil Krishnamurthy Cholesterol [Mass/Vol] 157 mg/dL Normal <=200 [facility] Comment on above: Performed By: #### O X24HR #### [facility] [address] [address] [address] Neil Krishnamurthy Cholesterol in HDL [Mass/Vol] 50 mg/dL Normal 40-60 [facility] Comment on above: Performed By: #### O X24HR #### [facility] [address] [address] [address] Neil Krishnamurthy Cholesterol in LDL [Mass/Vol] 79.4 mg/dL Normal [facility] Comment on above: Performed By: #### O X24HR #### [facility] [address] [place], [place] [address] Dr. Neil Krishnamurthy Cholesterol.total/C holesterol in HDL [Mass ratio] 3.1 {ratio} Normal [facility] Comment on above: Performed By: #### O X24HR #### [facility] [address] [place], [place] [address] Dr. Neil Krishnamurthy HDL NORMAL > or = 60 mg/dl - LO W CARDIOVASCULAR RISK <40 mg/dl - HIGH CARDIOVASCULAR RISK Normal [facility] Comment on above: Performed By: #### O X24HR #### [facility] [id number] Neil Krishnamurthy LDL CALC NORMAL SEE BELOW Normal [facility] Comment on above: Result Comment: <100 mg/dl OPTIMAL 100 - 129 mg/dl NEAR OR ABOVE OPTIMAL 130 - 159 mg/dl BORDERLINE HIGH 160 - 189 mg/dl HIGH >190 mg/dl VERY HIGH Performed By: #### O X24HR #### [facility] [address] [place] [address] Dr. Neil Krishnamurthy Triglyceride [Mass/Vol] 138 mg/dL Normal <=150 [facility] Comment on above: Performed By: #### O X24HR #### [facility] [address] [place] [address] Dr. Neil Krishnamurthy VLDL CALC 27.6 mg/dL Normal [facility] Comment on above: Performed By: #### O X24HR #### [facility] [address] [place] [address] Dr. Neil Krishnamurthy LIVER PROFILEon 07-13-2022 Albumin [Mass/Vol] 3.5 g/dL Normal 3.4-5.0 [facility] Comment on above: Performed By: #### O X24HR #### [facility] [address] [place] [address] Dr. Neil Krishnamurthy Albumin/Globulin [Mass ratio] 1.0 {ratio} Normal [facility] Comment on above: Performed By: #### O X24HR #### [facility] [address] [place] [address] Dr. Neil Krishnamurthy ALP [Catalytic activity/Vol] 83 U/L Normal 46-116 [facility] Comment on above: Performed By: #### O X24HR #### [facility] [address] [place] [address] Dr. Neil Krishnamurthy ALT [Catalytic activity/Vol] 19 U/L Normal 14-59 [facility] Comment on above: Performed By: #### O X24HR #### [facility] [address] [place] [address] Dr. Neil Krishnamurthy AST [Catalytic activity/Vol] 15 U/L Normal 15-37 [facility] Comment on above: Performed By: #### O X24HR #### [facility] [address] [place] [address] Dr. Neil Krishnamurthy BILI, CONJUGATED 0.1 mg/dL Normal 0.0-0.2 [facility] Comment on above: Performed By: #### O X24HR #### [facility] [address] [place] [address] Dr. Neil Krishnamurthy Bilirubin [Mass/Vol] 0.6 mg/dL Normal 0.2-1.0 [facility] Comment on above: Performed By: #### O X24HR #### [facility] [address] [place] [address] Dr. Neil Krishnamurthy Globulin (S) [Mass/Vol] 3.5 g/dL Normal [facility] Comment on above: Performed By: #### O X24HR #### [facility] [address] [place] [address] Dr. Neil Krishnamurthy Protein [Mass/Vol] 7.0 g/dL Normal 6.4-8.2 [facility] Comment on above: Performed By: #### O X24HR #### [facility] [address] [place] [address] Dr. Neil Krishnamurthy PROF CHEM 8 (BAS METB)on Anion gap [Moles/Vol] 10.8 mmol/L Normal [facility] Comment on above: Performed By: #### O X24HR #### [facility] [address] [place] [address] Dr. Neil Krishnamurthy Calcium [Mass/Vol] 8.2 mg/dL Critically low 8.5-10.1 Th [facility] Comment on above: Performed By: #### O X24HR #### [facility] [address] [place] [address] Dr. Neil Krishnamurthy Chloride [Moles/Vol] 105 mmol/L Normal 98-107 [facility] Comment on above: Performed By: #### O X24HR #### [facility] [address] [place] [address] Dr. Neil Krishnamurthy CO2 [Moles/Vol] 24.5 mmol/L Normal 21.0-32.0 [facility] Comment on above: Performed By: #### O X24HR #### [facility] [address] [address] [address] Neil Krishnamurthy Creatinine [Mass/Vol] 0.74 mg/dL Normal 0.55-1.02 [facility] Comment on above: Performed By: #### O X24HR #### [facility] [address] [address] [address] Neil Krishnamurthy EGFR-AF COLOMBIAN >60 Normal >=60 [facility] Comment on above: Performed By: #### O X24HR #### [facility] [address] [address] [address] Neil Krishnamurthy EGFR-NON AF COLOMBIAN >60 Normal >=60 [facility] Comment on above: Performed By: #### O X24HR #### [facility] [address] [place] [address] Dr. Neil Krishnamurthy Glucose [Mass/Vol] 106 mg/dL Normal 74-106 [facility] Comment on above: Performed By: #### O X24HR #### [facility] [address] [address] [address] Neil Krishnamurthy Potassium [Moles/Vol] 3.5 mmol/L Normal 3.5-5.1 [facility] Comment on above: Performed By: #### O X24HR #### [facility] [address] [place] [address] Dr. Neil Krishnamurthy Sodium [Moles/Vol] 137 mmol/L Normal 136-145 [facility] Comment on above: Performed By: #### O X24HR #### [facility] [address] [place] [address] Dr. Neil Krishnamurthy Urea nitrogen [Mass/Vol] 11.0 mg/dL Normal 7.0-18.0 [facility] Comment on above: Performed By: #### O X24HR #### [facility] [address] [place] [address] Dr. Neil Krishnamurthy Urea nitrogen/Creatinine [Mass ratio] 14.8 mg/mg Normal [facility] Comment on above: Performed By: #### O X24HR #### [facility] [address] [address] [address] Neil Krishnamurthy TSHon 07-13-2022 TSH 1.166 uIU/mL Normal 0.358-3.740 [facility] Comment on above: Performed By: #### O X24HR #### [facility] [address] [address] [address] Neil Krishnamurthy VITAMIN D 25 OHon 07-13-2022 VIT D 25-OH 23.8 ng/mL Normal [facility] Comment on above: Performed By: #### V ITAD #### [facility] [address] [address] [address] Neil Krishnamurthy VIT D RANGES SEE BELOW Normal [facility] Comment on above: Result Comment: <20 ng/mL Vit D deficient 20 - <30 ng/mL Vit D insufficient 30 - 100 ng/mL Vit D sufficient >100 ng/mL Potential Toxicity Performed By: #### V ITAD #### [facility] [address] [place] [address] Dr. Neil Krishnamurthy MG MAMM SCREEN 3D MARKEL CADon 06-23-2022 MG MAMM SCREEN 3D MARKEL CAD Patient: LUL BRITTON Exam Date: 06/23/2022 : 1985 Gender:F Ordering : DR KATHY BARRAGAN . Admission #: [id number] Family : Order #: [id number] CLICK HERE TO VIEW EXAM RADIOLOGY REPORT [...] cervical cancer at age 31. LOCATION: [facility] BREAST COMPOSITION: Heterogeneously dense,which may obscure [...] Quezada MD on 06/23/2022 at 11:17 Normal [facility] PAP ACOG PANEL 2: 30 to 65on 06-16-2022 . . Normal [facility] Comment on above: Result Comment: Perf ormed at: WB Performed By: #### C O2, CL, BUN, CREA, URIC, K, CA, NA #### [facility] [address] [address] [address] Neil Krishnamurthy Age Gdln ACOG Testing 30-65 Normal [facility] Comment on above: Performed By: #### C O2, CL, BUN, CREA, URIC, K, CA, NA #### [facility] [address] [address] [address] Neil Krishnamurthy DIAGNOSIS: Comment Normal [facility] Comment on above: Result Comment: NEGA TIVE FOR INTRAEPITHELIAL LESION OR MALIGNANCY. Performed at: WB Performed By: #### C O2, CL, BUN, CREA, URIC, K, CA, NA #### [facility] [address] [address] [address] Neil Krishnamurthy HPV Aptima Negative Normal Negative [facility] Comment on above: Result Comment: This nucleic acid amplification test detects fourteen high-risk HPV types (16,18,31,33,35,39,45,51,52,56,58,59,66,68) without differentiation. Performed at: =G Performed By: #### C O2, CL, BUN, CREA, URIC, K, CA, NA #### [facility] [id number] Neil Krishnamurthy Methodology: Comment Normal [facility] Comment on above: Result Comment: This liquid based ThinPrep(R) pap test was screened with the use of an image guided system. Performed at: WB Performed By: #### C O2, CL, BUN, CREA, URIC, K, CA, NA #### [facility] [id number] Neil Krishnamurthy Note: Comment Normal [facility] Comment on above: Result Comment: The [...] BUN, CREA, URIC, K, CA, NA #### [facility] [address] [address] [address] Neil Krishnamurthy Performed by: Comment Normal [facility] Comment on above: Result Comment: Fang Song, Bulk Sausage Casing Tier Off (ASCP) Performed at: WB Performed By: #### C O2, CL, BUN, CREA, URIC, K, CA, NA #### [facility] [address] [place] [address] Dr. Neil Krishnamurthy Specimen adequacy: Comment Normal [facility] Comment on above: Result Comment: Sati sfactory for evaluation. Endocervical and/or squamous metaplastic cells (endocervical component) are present. Performed at: WB Performed By: #### C O2, CL, BUN, CREA, URIC, K, CA, NA #### [facility] [address] [place] [address] Dr. Neil Krishnamurthy VAGINITIS/VAGINOSIS DNA PROB Jovi 06-03-2022 Rachel species Negative Normal Negative [facility] Comment on above: Performed By: #### V AGINT #### [facility] [address] [place] [address] Dr. Neil Krishnamurthy Gardnerella vaginalis Positive Abnormal Negative [facility] Comment on above: Performed By: #### V AGINT #### [facility] [address] [place] [address] Dr. Neil Krishnamurthy Trichomonas vaginalis Negative Normal Negative [facility] Comment on above: Performed By: #### V AGINT #### [facility] [address] [place] [address] Dr. Neil Krishnamurthy COVID Quick Testingon 2020 Result Positive [facility] Other XR ABDOMEN LIMITED (KUB)on 1 020-2017 XR ABDOMEN LIMITED (KUB) EXAMINATION:SUPINE VIEW(S) OF THE DSMRSFN7207/08/2017 1:38 pmCOMPARISON:October 19, 2010HISTORY:ORDERING SYSTEM PROVIDED HISTORY: [...] by:Raheel Morales MD07/08/17Final result Normal [facility] Vital Signs Date Time Vital Sign Value Performing Clinician Facility 09-22-2023 12:00-0500 Body height 152.4 cm Elisabeth Ma Other [facility] Other 09-22-2023 12:00-0500 Body mass index (BMI) [Ratio] 41.87 kg/m2 Elisabeth Ma Other [facility] Other 09-22-2023 12:00-0500 Body temperature 97.7 [degF] Elisabeth Ma Other [facility] Other 09-22-2023 12:00-0500 Body weight 97.25 kg Elisabeth Ma Other [facility] Other 09-22-2023 12:00-0500 Diastolic blood pressure 86 mm[Hg] Elisabeth Ma Other [facility] Other 09-22-2023 12:00-0500 Respiratory rate 18 /min Elisabeth Ma Other [facility] Other 09-22-2023 12:00-0500 SaO2% (BldA) [Mass fraction] 99 % Elisabeth Ma Other [facility] Other 09-22-2023 12:00-0500 Systolic blood pressure 124 mm[Hg] Elisabeth Ma Other [facility] Other 03-06-2023 13:50-0400 Body height 152.4 cm Leana Soler Other [facility] Other 03-06-2023 13:50-0400 Body mass index (BMI) [Ratio] 42.3 kg/m2 Leana Soler Other [facility] Other 03-06-2023 13:50-0400 Body temperature 98.2 [degF] Leana Soler Other [facility] Other 03-06-2023 13:50-0400 Body weight 98.25 kg Leana Soler Other [facility] Other 03-06-2023 13:50-0400 Diastolic blood pressure 76 mm[Hg] Leana Soler Other [facility] Other 03-06-2023 13:50-0400 Respiratory rate 18 /min Leana Soler Other [facility] Other 03-06-2023 13:50-0400 SaO2% (BldA) [Mass fraction] 100 % Leana Soler Other [facility] Other 03-06-2023 13:50-0400 Systolic blood pressure 111 mm[Hg] Leana Soler Other [facility] Other 09-01-2022 17:15-0500 Body height 152.4 cm Jennyfer Ruiz Other [facility] Other 09-01-2022 17:15-0500 Body mass index (BMI) [Ratio] 41.98 kg/m2 Jennyfer Ruiz Other [facility] Other 09-01-2022 17:15-0500 Body temperature 98.4 [degF] Jennyfer Ruiz Other [facility] Other 09-01-2022 17:15-0500 Body weight 97.52 kg Jennyfer Ruiz Other [facility] Other 09-01-2022 17:15-0500 Respiratory rate 18 /min Jennyfer Ruiz Other [facility] Other 09-01-2022 17:15-0500 SaO2% (BldA) [Mass fraction] 99 % Jennyfer Ruiz Other [facility] Other 04-22-2022 14:30-0400 Body height 152.4 cm Jessenia Angel Other [facility] Other 04-22-2022 14:30-0400 Body mass index (BMI) [Ratio] 40.42 kg/m2 Jessenia Angel Other [facility] Other 04-22-2022 14:30-0400 Body weight 93.9 kg Jessenia Ortiz Other [facility] Other 04-22-2022 14:30-0400 Diastolic blood pressure 89 mm[Hg] Jessenia Ortiz Other [facility] Other 04-22-2022 14:30-0400 Respiratory rate 18 /min Jessenia Ortiz Other [facility] Other 04-22-2022 14:30-0400 SaO2% (BldA) [Mass fraction] 100 % Jessenia Ortiz Other [facility] Other 04-22-2022 14:30-0400 Systolic blood pressure 116 mm[Hg] Jessenia Ortiz Other [facility] Other 07-22-2021 11:00-0400 Body height 152.4 cm Jennyfer Maravillamond Other [facility] Other 07-22-2021 11:00-0400 Body mass index (BMI) [Ratio] 38.08 kg/m2 Jennyfer Sara Other [facility] Other 07-22-2021 11:00-0400 Body temperature 96.2 [degF] Jennyfer Maravillamond Other [facility] Other 07-22-2021 11:00-0400 Body weight 88.45 kg Jennyfer Maravillamond Other [facility] Other 07-22-2021 11:00-0400 Respiratory rate 18 /min Jennyfer Maravillamond Other [facility] Other 07-22-2021 11:00-0400 SaO2% (BldA) [Mass fraction] 99 % Jennyfer Sara Other [facility] Other Encounters Encounter Date Encounter Type Care Provider Facility Start: 06-18-2024 End: 06-18-2024 ambulatory Joanne Cameron MD Facility:[facility] Start: 06-05-2024 End: 06-05-2024 ambulatory ABDOUL ALBERTO Not Available Start: 06-04-2024 End: 06-04-2024 ambulatory Joanne Cameron MD Facility: [facility] Start: 05-14-2024 End: 05-14-2024 ambulatory [facility]ulatory Start: 05-07-2024 End: 05-07-2024 ambulatory [facility] Start: 04-16-2024 End: 04-16-2024 ambulatory Joanne Cameron MD Facility: [facility] Start: 03-26-2024 End: 03-26-2024 ambulatory ABDOUL ALBERTO Not Available Start: 03-15-2024 End: 03-15-2024 ambulatory [facility] Ambulatory Start: 02-21-2024 End: 02-21-2024 ambulatory LIN Chen TIMMIS Not Available Start: 02-17-2024 End: 02-17-2024 ambulatory Lin H Timmis Facility:[facility] Start: 02-17-2024 End: 02-17-2024 Patient encounter procedure Lin H Timmis [facility] Start: 01-16-2024 End: 01-16-2024 ambulatory LIN H TIMMIS Not Available Start: 12-20-2023 End: 12-20-2023 ambulatory ABDOUL NADERER Not Available Start: 10-04-2023 End: 10-04-2023 ambulatory ABDOUL NADERER Not Available Start: 09-22-2023 End: 09-22-2023 ambulatory Elisabeth Ma Other [facility] Other Start: 09-22-2023 Office outpatient vi sit 15 minutes Elisabeth Ma [facility] Start: 09-05-2023 End: 09-05-2023 ambulatory Joanne Cameron MD Facility: [facility] Start: 08-15-2023 End: 08-15-2023 ambulatory Joanne Cameron MD Facility:[facility] Start: 07-05-2023 End: 07-05-2023 ambulatory ANAMIKA SCALES Facility:[facility] Start: 07-05-2023 End: 07-05-2023 Patient encounter procedure [facility]NA SCAL[facility] Start: 03-06-2023 End: 03-06-2023 Patient encounter procedure PERIODONTAL ASSISTANT Leana Soler Work Phone: [facility] Work Phone: Start: 03-06-2023 End: 03-06-2023 ambulatory Leana Soler [facility] Other Start: 03-06-2023 Office outpatient vi sit 15 minutes Leana Soler [facility] Start: 12-06-2022 End: 12-07-[address] ISRA CHAN . Facility:[facility] Start: 11-17-2022 End: 11-18-[address] ABDOUL ALBERTO Facility:[facility] Start: 11-01-2022 End: 12-11-[address] ABDOUL ALBERTO Facility:[facility] Start: 10-30-2022 End: 10-31-[address] ABDOUL ALBERTO Facility:[facility] Start: 10-12-2022 End: 10-13-[address] ABDOUL ALBERTO Facility:[facility] Start: 10-04-2022 End: 10-04-2022 Patient encounter procedure Isra CHAN [facility] Start: 10-02-2022 End: 10-03-[address] ISRA CHAN . Facility:[facility] Start: 09-01-2022 End: 09-01-2022 ambulatory Jennyfer Ruiz Other [facility] Other Start: 09-01-2022 Office outpatient vi sit 15 minutes Jennyferthierry Ruiz [facility] Start: 08-27-2022 End: 08-28-[address] RIC QUEZADA Facility:[facility] Start: 07-18-2022 Encounter for genera l adult medical examination without abnormal findings DR ABDOUL ALBERTO [facility] Start: 07-13-2022 End: [address] [...] 04-22-2022 End: 04-22-2022 ambulatory Jessenia Ortiz Other [facility] Other Start: 04-22-2022 Office outpatient vi sit 15 minutes Jessenia Ortiz [facility] Start: 07-22-2021 End: 07-22-2021 ambulatory Jennyfer Ruiz Other [facility] Other Start: 07-22-2021 Office outpatient vi sit 15 minutes Jennyfer Ruiz [facility] Start: 07-08-2017 End: 07-09-2017 Ambulatory MINGO SCHUMACHER [facility] Procedures Date Procedure Procedure Detail Performing Clinician Start: 03-06-2023 X-ray of left foot PERIODONTAL ASSISTANT Leana Soler Work Phone: Start: 07-08-2017 X-ray exam of abdomen Quintin SCHUMACHER Appendectomy Isra CHAN Cholecystectomy Isra KAISER Colonoscopy Isra CHAN Hernia of abdominal cavity (disorder) Isra CHAN Ligation of fallopian tube P sabrina CHAN Lithotripsy Israissa CHAN Plan of Treatment Date Care Activity Detail Author Start: 07-10-2024 ambulatory Ambulatory Facility:[facility] Immunizations Immunization Date Immunization Notes Care Provider Griselda adame 05-11-2010 tetanus toxoid, redu jose juan diphtheria toxoid, and acellular pertussis vaccine, adsorbed Israissa CHAN [facility] 01-10-2007 varicella virus vaccine Patr jorje CHAN [facility] 12-07-2006 varicella virus vaccine Patr jorje CHAN [facility] 04-25-2006 hepatitis B vaccine, pediatric or pediatric/adolescent dosage Israissa CHAN [facility] 12-20-2005 hepatitis B vaccine, pediatric or pediatric/adolescent dosage Isra CHAN [facility] 11-15-2005 hepatitis B vaccine, pediatric or pediatric/adolescent dosage Isra CHAN [facility] 03-10-1999 DTaP, unspecified formulation Isra CHAN [facility] 03-10-1999 measles, mumps and rubella virus vaccine Israissa CHAN [facility] Payers Date Payer Category Payer Self-pay 2022 Medicaid [id number] 2022 Unknown 2017 Unknown [id number] 2.1 [id number] 1985 Unknown [id number] 2.16.84 0.1.399360.3.579.2.593 1985 Unknown [id number] 2.16.84 0.1.581447.3.579.2.593 1985 Unknown [id number] 2.16.84 0.1.523719.3.579.2.593 1986 Unknown [id number] 2.16.84 0.1.488121.3.579.2.593 1986 Unknown [id number] 2.16.84 0.1.886597.3.579.2.593 1986 Unknown [id number] 2.16.84 0.1.146480.3.579.2.593 1986 Unknown [id number] 2.16.84 0.1.451068.3.579.2.593 1986 Unknown [id number] 2.16.84 0.1.918941.3.579.2.593 1986 Unknown [id number] 2.16.84 0.1.146614.3.579.2.593 1986 Unknown [id number] 2.16.84 0.1.407905.3.579.2.593 1986 Unknown [id number] 2.16.84 0.1.214396.3.579.2.593 1986 Unknown [id number] 2.16.84 0.1.249882.3.579.2.1259 1986 Unknown [id number] 2.16.84 0.1.966630.3.579.2.1259 1986 Unknown [id number] 2.16.84 0.1.358012.3.579.2.1259 1986 Unknown [id number] 2.16.84 0.1.441941.3.579.2.1259 1986 Unknown [id number] 2.16.84 0.1.703729.3.579.2.1259 1986 Unknown [id number] 2.16.8 40.1.747377.3.579.2.1244 1986 Unknown [id number] 2.16.8 40.1.094370.3.579.2.1244 1986 Unknown [id number] 2.16.84 0.1.026447.3.579.2.1259 1986 Unknown [id number] 2.16.8 40.1.616021.3.579.2.1245 1986 Unknown [id number] 2.16. 840.1.355479.3.579.2.196 1986 Unknown [id number] 2.16. 840.1.871489.3.579.2.196 1986 Unknown [id number] 2.16. 840.1.224971.3.579.2.196 1986 Unknown [id number] 2.16. 840.1.262396.3.579.2.196 1986 Unknown [id number] 2.16. 840.1.389612.3.579.2.196 1986 Unknown [id number] 2.16.8 40.1.723273.3.579.2.727 1986 Unknown [id number] 2.16.8 40.1.960665.3.579.2.727 1986 Unknown [id number] 2.16.8 40.1.310885.3.579.2.727 1959 Unknown [id number] 1959 Unknown [id number] 2.1 6.840.1.097790.19 1959 Unknown [id number] Unknown [id number] 2.16.8 40.1.817862.19 Unknown [id number] 2.16.8 40.1.236797.3.579.2.531 Social History Date Type Detail Facility Unknown if ever smoked [facility] Other Sex Assigned At [facility] Start: 10-04-2022 End: 02-08-2023 Tobacco smoking status Never smoked tobacco (finding) [facility] Start: 1985 Sex Assigned At Female F [facility] Functional Status Date Assessment Result Facility 07-05-2023 Functional Status N/A [facility] 10-04-2022 Functional Status N/A [facility] Clinical Notes 07-22-2021 to 09-22-2023 Note [...] understanding and is agreeable with treatment plan [facility] Other 09-25-2023 Hospital Discharge instructions Patient Education [...] include: ?8 oz (237 mL) of milk, ymvzgok-bcgqpkdzpivt-zzpps milk, and calcium- fortifiedfruit juice. Calcium-fortified means [...] ?Spinach (cooked), rhubarb, beets, sweet potatoes, and Gabonese chard. ?Peanuts. ?Potato chips, pitcairn islander fries, and baked potatoes with skin on. ?Nuts and nut products. ?Chocolate. If you regularly take a diuretic medicine, make sure to eat at least 1 or 2 servings of fruits or vegetables that are high in potassium each day. These include: ?Avocado. ?Banana. ?[place], prune, carrot, or tomato juice. ?Baked potato. [...] magnesium, fish oil, or vitamin B6. Take jwtb-yaj-uqybcft and prescription medicines only as told by [...] Casseroles. Pizza. Lasagna. Frozen meals. Potato chips. Turkmen fries. The items listed above may not [...] provider. Document Revised: 05/17/2022 Document Reviewed: 05/17/2022 [employer] Patient Education 2022 [employer]. Follow Up Care 02/08/2023 16:17:30 With:XIMENA SCALES PA-C, URL Address: [address] [place], [place] [address] [place] [address] [id number] When: Unknown Comments:2 yr w/ B[facility] and [facility] 06-18-2023 Evaluation note* Encounter Date Diagnosis Assessment [...] fever. Patient verbalized understanding of treatment plan. [facility] Other 01-16-2023 Hospital Discharge instructions Patient Education [...] include: ?Spinach. ?Rhubarb. ?Beets. ?Potato chips and pitcairn islander fries. ?Nuts. If you regularly take a diuretic medicine, make sure to eat at least 1 2 fruits or vegetables high in potassium each day. These include: ?Avocado. ?Banana. ?[place], prune, carrot, or tomato juice. ?Baked potato. [...] Casseroles. Pizza. Lasagna. Frozen meals. Potato chips. Turkmen fries. Summary You can reduce your risk [...] 12/31/2011 Document Revised: 12/26/2019 Document Reviewed: 08/16/2017 [employer] Patient Education 2020 [employer]. Follow Up Care 08/30/2022 15:20:43 With:CLARITZA JOHNSTON, Isra Lorenzana, URL Address: [facility] [address] [place] [address]- When: Unknown [facility] 12-14-2022 Evaluation note* Encounter Date Diagnosis [...] needed for cough or shortness of breath [facility] Other 08-04-2022 Evaluation note* Encounter Date Diagnosis [...] care provider if no improvement of symptoms. [facility] Other 11-03-2021 Evaluation note* Encounter Date Diagnosis [...] Patient care instructions given in writting by [facility] Care At Home document. [facility] Other Evaluation + Plan note Future Appointments Appointment Date:01/10/2023 03:15:00 PM Scheduled Provider:Isra CHAN MD Location:[facility] Appointment Type:URO Office Visit Diagnostic Tests Pending * Creatinine 10/04/22 [facility] evaluation + Plan note Future Appointments Appointment Date:07/10/2024 02:00:00 PM Scheduled Provider:XIMENA SCALES PA-C Location:[facility] Appointment Type:URO Office Visit [facility] evalewqoni noteNo assessment information available [facility] Work Phone: history general Narrative - Reported* Type Description Date Medical History kidney stones Surgical History C section Surgical History appendectomy Surgical History cholecystectomy Surgical History hernia repair Surgical History lithotripsy Surgical History wisdom teeth extract Hospitalization History see above [facility] Other [facility] general Narrative - Reported* Type Description Date Medical History kidney stones Medical History anxiety Medical History migraine headache Surgical History C section Surgical History appendectomy Surgical History cholecystectomy Surgical History hernia repair Surgical History lithotripsy Surgical History wisdom teeth extract Hospitalization History see above [facility] Other Hishzyh general Narrative - Reported* Type Description Date Medical History kidney stones Medical History anxiety Medical History migraine headache Surgical History C section Surgical History appendectomy Surgical History cholecystectomy Surgical History hernia repair Surgical History lithotripsy Surgical History wisdom teeth extract Surgical History cortisone shots in back Hospitalization History see above [facility] Other Hospital course Narrative No data available for this section [facility] Discharge instructions No data available for this [facility] No data available for this section [facility] Summary Purpose Family History No Family History [...] section and content) DATE CREATED AUTHOR 03/14/2018 [facility] DATE CREATED AUTHOR AUTHOR'S ORGANIZ ATION 01/19/2023 [facility] DATE CREATED AUTHOR AUTHOR'S ORGANIZ ATION 03/19/2023 [facility] DATE CREATED AUTHOR AUTHOR'S ORGANIZ ATION 04/03/2024 [facility] EPIC DATE CREATED AUTHOR AUTHOR'S ORGANIZ ATION 05/15/2024 [facility] DATE CREATED AUTHOR AUTHOR'S ORGANIZ ATION 06/07/2024 [facility] EPIC DATE CREATED AUTHOR AUTHOR'S ORGANIZ ATION 06/21/[address] [facility] DATE CREATED AUTHOR AUTHOR'S ORGANIZ ATION 06/22/2024 [facility] DATE CREATED AUTHOR AUTHOR'S ORGANIZ ATION 06/28/2024 [facility] REASON FOR VISIT (unrecogniz ed section [...] BE BASED ON THE PRIMARY CLINICAL RECORDS. [employer] provides no warranty or guarantee of the accuracy or completeness of information in this document.
== END 2024-06-30 09:05 | disposition home or self-care (01) ==
LOC: US 09:05
PROVIDERS: PCP Family Medicine; Visit Provider Physician Assistant
DX: R10.9 Unspecified abdominal pain (principal); N20.0 Calculus of kidney
CPT/HCPCS: 74018; 76770

== ENCOUNTER 2024-07-18 15:14 | Outpatient (OUT) | payer OTHER, SELFPAY ==
--- NOTE | 2024-07-18 15:22 | P.CN_ITS ---
Consult Note: HPI Data of Consult Patient: known to practice within the last 3 years Consult date: 08/15/23 Requesting Physician: Charmaine Yates NP Primary Care Provider: Kirby Delong MD Consult Narrative Reason for consult: Midback, neck, right shoulder pain Narrative: 38yof who presents for evaluation. Worsening midback, neck, right shoulder pain. Ongoing for 1+ year. Completed physical therapy x6 weeks, with minimal benefit. Continues in provider directed home exercises >3x/week for >6 weeks, with minimal benefit. Tried muscle relaxers, with minimal benefit. XR reviewed, which is significant for cervical and thoracic spondylosis. finds mild benefit to current medication regimen without side effects. recently underwent right and left T10/11 T11/12 RFA with 90% improvement ongoing. patient would like to address chronic bilateral low back and bilateral knee pain, no recent imaging or PT. cc:: CC: Charmaine Yates NP Review of Systems ROS Status of ROS 10 or more systems reviewed and unremark able except as noted in history and below Musculoskeletal Reports: back pain, extremity pain and joint pain PFSH PFSH Medical History Arthritis ?M19.90 - Unspecified osteoarthritis, unspecified site (ICD-10) Acid reflux ?K21.9 - Gastro-esophageal reflux disease without esophagitis (ICD-10) Kidney stone ?N20.0 - Calculus of kidney (ICD-10) Sleep apnea ?G47.30 - Sleep apnea, unspecified (ICD-10) Heart murmur ?R01.1 - Cardiac murmur, unspecified (ICD-10) Surgical History History of lithotripsy ?Z98.890 - Other specified postprocedural states (ICD-10) History of tubal ligation ?Z98.51 - Tubal ligation status (ICD-10) Hx of cholecystectomy ?Z90.49 - Acquired absence of other specified parts of digestive tract (ICD- 10) History of umbilical hernia repair ?Z98.890 - Other specified postprocedural states (ICD-10) ?Z87.19 - Personal history of other diseases of the digestive system (ICD-10) History of appendectomy ?Z90.49 - Acquired absence of other specified parts of digestive tract (ICD- 10) H/O section ?Z98.891 - History of uterine scar from previous surgery (ICD-10) Meds Home Medications and Allergies Home Medications ?Medication ?Instructions ?Recorded ?Confirmed ?Type dextroamphetamine-amphetamine 20 40 mg PO DAILY 08/15/23 06/18/24 History mg tablet (Adderall) etodolac 400 mg tablet (Lodine) 400 mg PO BID 08/15/23 06/18/24 History paroxetine HCl 20 mg tablet (Paxil) 20 mg PO DAILY 08/15/23 06/18/24 History baclofen 10 mg tablet 10 mg PO DAILY 09/14/23 06/18/24 History amitriptyline 25 mg tablet mg 04/16/24 History cetirizine 5 mg-pseudoephedrine ER 1 tab PO .QD 06/04/24 06/18/24 History 120 mg tablet,extended release,12hr (All Day Allergy-D) cholecalciferol (vitamin D3) 50 06/04/24 History mcg (2,000 unit) tablet Allergies Allergy/AdvReac Type Severity Reaction Status Date / Time Penicillins Allergy Rash Verified 06/18/24 07:43 Exam Constitutional Documenting provider has reviewed patient's vital signs: yes Common normals: no apparent distress, oriented x3, healthy appearing, alert and well nourished General appearance: cooperative HENMT Common normals: normocephalic, hearing grossly normal bilaterally and moist oral mucous membranes Head and scalp: normocephalic Eye Common normals: PERRL Pupil: PERRL Neck & C-Spine Common normals: full ROM General: normal visual inspection Chest Common normals: inspection of chest normal Respiratory Common normals: normal respiratory effort, no retractions and no use of accessory muscles Back & Pelvis Thoracic spine/upper back: ROM not limited, no pain with ROM and no thoracic spinal tenderness Lumbar spine/lower back: pain with ROM and straight leg raise negative bilaterally Sacroiliac joints: SI joint(s) abnormal Other: bilateral SIJ positive niecy(patricks), gaenslens, thigh thrust, compression test positive lumbar facet loading negative radiculopathy Extremity Right lower extremity: knee joint Left lower extremity: knee joint Other: bilateral knee pain, mild edema, mild crepitus, no instability noted. pain increased with medial and lateral stress testing Neuro Common normals: oriented x3, CN's II-XII intact bilaterally, moves all extremities, no focal motor deficits, no sensory deficits noted and deep tendon reflexes 2+ bilaterally Sensorium/orientation: alert Motor exam: strength 5/5 throughout and no movement abnormalities noted Psych Common normals: mental status grossly normal, thought process normal, cooperative, affect normal, speech normal and activity/motor behavior normal Speech: normal speech Thought process: normal thought process Results Additional Findings Additional findings: If on a controlled substance or opioids, I have checked an [place]ARRS report on this patient and there are no aberrancies noted in the prescribing history.??If on a controlled substance or opioid a drug screen was completed and reviewed within the last year, and if there has not been a drug screen completed we ordered one today to monitor higher risk, state monitored pain medication use. As part of providing excellent, safe, comprehensive care, the following was completed at our patient's visit: 1. A medication reconciliation and review to ensure accurate knowledge of current/active medications, including asking our patients to inform us about any [id number] medications or herbal remedies/nutritional supplements/alternative remedies. 2. A review to specifically ensure our patients have had annual screening for screening for depression, screening for tobacco use, and screening for unhealthy alcohol use. For concerning screenings had a discussion with the patient, provided patient education, and recommended follow-up with primary care provider when appropriate. If patient noted with a risk of falling, they received educat ion on strength, gait, and balance training to prevent future risk of falling. Assessment and Plan Assessment and Plan (1) Thoracic spondylosis: Assessment and Plan: left and right T10/11 T11/12 RFA 90% improvement ongoing (2) Chronic bilateral low back pain: (3) Sacroiliitis: (4) Chronic pain of both knees: Plan update lumbosacral xray to assess low back pain and sacroiliitis update bilateral knee xray to assess chronic bilateral knee pain, right >left PT for chronic bilateral low back pain, sacroiliitis, chronic bilateral knee pain continue current medications f/u after PT complete
--- OUTSIDE RECORDS SUMMARY | 2024-07-18 15:27 | XMS_ITS | CCD ---
Author Organization [facility] Care Team Providers Care Membership Solicitor Name Role Phone WINSOME, MINGO S Unavailable Unavailable BETANCUR, MAYE P Unavailable Unavailable WINSOME, MINGO S Unavailable Unavailable BETANCUR, MAYE P Unavailable Unavailable Jennyfer Ruiz Unavailable Jessenia Ortiz Unavailable KIRBY ALBERTO Primary Care Physician [phone] JERRY ., DR CASTILLO Admitting Unavailable JERRY ., DR CSATILLO Consulting Unavailable JERRY ., DR CASTILLO Attending Unavailable NADERER, DR [...] NADERER, DR KIRBY Ayala Primary Care Unavailable JERRY ., DR CASTILLO Attending Unavailable JERRY ., DR CASTILLO Admitting Unavailable JERRY ., DR CASTILLO Consulting Unavailable WEST, DR RIC Diaz Consulting Unavailable JERRY ., DR CASTILLO Attending Unavailable JERRY ., DR CASTILLO Admitting Unavailable JERRY ., DR CASTILLO Consulting Unavailable NADERER, DR [...] NADERER, DR KIRBY Ayala Primary Care Unavailable NADERESalomón, DR KIRBY Ayala Attending Unavailable REMY, DR KIRBY Ayala Admitting Unavailable Leana Soler Unavailable KEN Soler Attending Provider Leana Soler Attending Unavailable Leana Soler Admitting Unavailable NO FAMILY, PHYSICIAN Primary Care Unavailable Elisabeth Ma Unavailable KIRBY ALBERTO Attending Unavailable KIRBY ALBERTO Attending Unavailable TIMMIYOVANI Ribeiro Attending Unavailable KIRBY ALBERTO Referring Unavailable ROGERS, YOVANI H Attending Unavailable KIRBY ALBERTO Attending Unavailable GIAN NEGRETE Attending Unavailable GORGE WELDON Attending Unavailable CADEN, GIAN C Admitting Unavailable CADEN, GIAN C Attending Unavailable Gigarret JOHNSTON, Andrius Marshall Attending Unavailable Giayshaitis , Andrius Vytautas Attending Unavailable Rupeshitis , Andrius Vytautas Attending Unavailable Giedraitis , Andrius Vytautas Attending Unavailable Presleyraary JOHNSTON, Andrius Vytautas Attending Unavailable Kirby Alberto MD Primary Care Provider Flaca JOHNSTON, Mary Thomas Unavailable KIRBY ALBERTO Attending Unavailable KIRBY ALBERTO Attending Unavailable Anna JERRY Attending Unavailable Timmis, Yovani H Admitting Unavailable Timmis, Yovani H Attending Unavailable Timmis, Yovani H Referring Unavailable Allergies Allergy Classification Reported Allergen(s) Allergy Type Date of Onset Reaction(s) Facility Penicillins (antibiotic) (1 source) Penicillin G; Translations: [penicillin G benzathine] Drug Allergy Eruption of skin (disorder) [facility] (8 sources) Penicillin G Benzathine; Translations: [Penicillin G] Drug allergy rash, Eruption of skin (disorder) [facility] (1 source) Penicillin Drug Allergy [facility] (5 sources) Penicillins; Translations: [PENICILLINS] Propensity to adverse reactions to drug (disorder) 4 Hives, [facility] Hospit[facility] 3 Repository Medications Current Medications Medication Drug Class(es) Dates Sig (Normalized) Sig (Original) acetaminophen 500 mg oral tablet (1 source) take 1 tablet by mouth every six hours Tylenol Extra Strength 500 MG 1 tablet as needed Orally every 6 hrs Active acetaminophen 325 mg / butalbital 50 mg / caffeine 40 mg oral tablet (3 sources) Barbiturate, Central Nervous System Stimulant, Methylxanthine Start: 4 take 1 tablet by mouth four times daily as needed for headache butalbital-acetaminop hen-caffeine 50-325-40 MG tablet Indications: Chronic migraine without aura without status migrainosus, not intractable (CMS/HCC) Take 1 tablet by mouth 4 (four) times a day as needed for headaches 60 tablet 2 02/17/2024 Active amitriptyline hydrochloride 25 mg oral tablet (3 sources) Tricyclic Antidepressant Start: 4 take 1 tablet by mouth at bedtime amitriptyline (Elavil) 25 MG tablet Indications: Migraine without aura and without status migrainosus, not intractable (CMS/HCC) TAKE 1 TABLET BY MOUTH AT BEDTIME 30 tablet 3 04/30/2024 Active Amphetamine / Dextroamphetamine (1 source) Central Nervous System Stimulant Adderall Active 24 hr amphetamine aspartate 5 mg / amphetamine sulfate 5 mg / dextroamphetamine saccharate 5 mg / dextroamphetamine sulfate 5 mg extended release oral capsule (3 sources) Central Nervous System Stimulant Start: 4 take 1 capsule by mouth every twenty-four hours in the morning amphetamine-dextroamp hetamine XR (Adderall XR) 20 MG 24 hr capsule Indications: Obstructive sleep apnea (adult) (pediatric) Take 1 capsule (20 mg) by mouth in the morning. Do not crush or chew.. 60 capsule 06/05/2024 Active baclofen 10 mg oral tablet (3 sources) gamma-Aminobutyric Acid-ergic Agonist baclofen (Lioresal) 10 MG tablet Take by mouth 3 (three) times a day Active cetirizine hydrochloride 10 mg oral tablet (2 sources) Histamine-1 Receptor Antagonist take 1 tablet by mouth every twenty-four hours ZyrTEC Allergy 10 MG 1 tablet Orally Once a day Active 12 hr cetirizine hydrochloride 5 mg / pseudoephedrine hydrochloride 120 mg extended release oral tablet (3 sources) alpha-Adrenergic Agonist, Histamine-1 Receptor Antagonist Start: 4 End: 5 take 1 tablet by mouth once in the morning, then take 1 tablet by mouth every twelve hours at bedtime cetirizine-pseudoephe drine (ZyrTEC-D) 5-120 MG 12 hr tablet Indications: Chronic pansinusitis Take 1 tablet by mouth in the morning and 1 tablet before bedtime. 60 tablet 11 03/26/2024 03/26/2025 Active cholecalciferol 0.05 mg oral tablet (3 sources) Vitamin D Start: 4 take 1 tablet by mouth once daily cholecalciferol (Vitamin D-3) 50 MCG (2000 UT) tablet Indications: Vitamin D deficiency, unspecified TAKE 1 TABLET BY MOUTH DAILY 90 tablet 3 07/02/2024 Active clarithromycin 500 mg oral tablet (1 source) Macrolide Antimicrobial Start: 2 take 1 tablet by mouth every twelve hours Clarithromycin 500 MG 1 tablet Orally every 12 hrs for 10 day(s) Apr, Active etodolac 400 mg oral tablet (3 sources) Nonsteroidal Anti-inflammatory Drug Start: 4 take 1 tablet by mouth twice daily as needed for pain etodolac (Lodine) 400 MG tablet Indications: Thoracic spondyloarthritis Take 1 tablet (400 mg) by mouth 2 (two) times a day as needed (Pain) 60 tablet 5 02/17/2024 Active furosemide 40 mg oral tablet (3 sources) Loop Diuretic Start: 3 take 1 tablet by mouth every twenty-four hours as needed furosemide (Lasix) 40 MG tablet Take 40 mg by mouth Daily as needed 03/08/2023 Active levoFLOXacin 750 mg oral tablet (2 sources) Quinolone Antimicrobial Start: 4 End: 4 take 1 tablet by mouth once daily levoFLOXacin (Levaquin) 750 MG tablet Indications: Acute bronchitis due to other specified organisms Take 1 tablet (750 mg) by mouth Daily for 7 days 7 tablet 07/05/2024 07/12/2024 Active methylPREDNISolone 4 mg oral tablet (1 source) Corticosteroid Start: 2 methylPREDNISolone 4 MG as directed Orally Once a day for 6 days Apr, Active montelukast 10 mg oral tablet (2 sources) Leukotriene Receptor Antagonist Start: 3 montelukast 10 mg Tab Refills(s) 0 Start Date: 02/08/23 Status: Ordered PARoxetine hydrochloride 30 mg oral tablet (9 sources) Serotonin Reuptake Inhibitor Start: 4 End: 5 take 1 tablet by mouth in the morning PARoxetine (Paxil) 30 MG tablet Indications: Generalized anxiety disorder (CMS/HCC) Take 1 tablet (30 mg) by mouth in the morning. 30 tablet 11 12/09/2023 12/08/2024 Active Start: 10-04-2022 take 1 mg by mouth once daily Paxil 20 mg Tab mg tab(s), Oral, Daily, Refills(s) 0 Start Date: 10/04/22 Status: Ordered Paxil Active predniSONE 50 mg oral tablet (7 sources) Start: 07-05-2024 End: 07-11-2024 take 1 tablet by mouth once daily predniSONE (Deltasone) 50 MG tablet Indications: Acute bronchitis due to other specified organisms Take 1 tablet (50 mg) by mouth Daily for 6 days 6 tablet 07/05/2024 07/11/2024 Active Start: 03-06-2023 predniSONE 20 MG Take 3 tabs daily x 3 days, then take 2 tabs daily x 3 days, then take 1 tab daily x 3 days. Orally Once a day for 9 days Feb, Not-Taking/PRN Start: 09-01-2022 take 1 tablet by herson th every twelve hours predniSONE 20 MG 1 tablet Orally 2 times a day for 5 day(s) Aug, Not-Taking/PRN topiramate 25 mg oral tablet (6 sources) [...] 2 tablets Orally Once a day Not-Taking/PRN [id number] actuat albuterol 0.09 mg/actuat metered dose [...] hua Not-Taking hydroCHLOROthiaz hua Active polymyxin b 31766 unt/ml / trimethoprim 1 mg/ml ophthalmic solution (1 source) Dihydrofolate Reductase Inhibitor Antibacterial, Polymyxin-class Antibacterial Start: 02-01-2023 take 1 drop(s) into the eye(s) every three hours Polytrim 48080-5.1 UNIT/ML 1 drop into affected eye Ophthalmic every 3 hours while awake for 7 January, Not-Taking Polytrim 64280-6.1 UNIT/ML (1 source) Start: 02-01-2023 take 1 drop(s) into the eye(s) every three hours as needed Polytrim 86200-9.1 UNIT/ML 1 drop into affected eye Ophthalmic every 3 hours while awake for 7 January, Not-Taking/PRN Problems Active Problems Problem Classification Problem Date Documented Da te Episodic/Chronic Acute bronchitis (4 sources) Acute infective bronchitis; Translations: [Acute bronchitis due to other specified organisms] Onset: 07-05-2024 07-05-2024 Episodic Anxiety disorders (3 sources) Generalized anxiety disorder; Translations: [Generalized anxiety disorder] Onset: 09-29-2023 09-29-2023 Chronic Diseases of mouth; excluding dental (2 sources) Diseases of lips; Translations: [Diseases of lips] Onset: 05-07-2024 Episodic Genitourinary symptoms and ill-defined conditions (1 source) Dysuria Episodic Gout and other crystal arthropathies (3 sources) Gouty arthritis of left foot; Translations: [Gout, unspecified] Chronic Headache; including migraine (3 sources) Migraine without aura, not refractory ; Translations: [Migraine without aura, not intractable, without status migrainosus] Onset: 10-04-2023 10-04-2023 Chronic Heart valve disorders (3 sources) Heart murmur 10-04-2022 Episodic Nonspecific chest pain (4 sources) Chest pain, unspecified; Translations: [CHEST PAIN UNSPECIFIED] Onset: 11-17-2022 Episodic Nutritional deficiencies (3 sources) Vitamin D deficiency; Translations: [Vitamin D deficiency, unspecified] Onset: 09-29-2023 09-29-2023 Chronic Other acquired deformities (2 sources) Acquired deformity [...] [HISTORY OF FALLING] Onset: 11-05-2022 Episodic Other nutritional; endocrine; and metabolic disorders (3 sources) Morbid obesity; Translations: [Morbid (severe) obesity due to excess calories] Onset: 10-04-2023 10-04-2023 Chronic Other upper respiratory disease (4 sources) Deviated [...] Onset: 03-15-2024 Episodic Other upper respiratory infections (6 sources) Chronic sinusitis, unspecified; Translations: [Chronic rhinitis] Onset: 12-20-2023 12-20-2023 Chronic Other upper respiratory infections (1 source) Acute upper respiratory infection, unspecified Episodic Residual codes; unclassified (3 sources) Obstructive sleep apnea syndrome; Translations: [Obstructive sleep apnea (adult) (pediatric)] Onset: 10-04-2023 10-04-2023 Chronic Residual codes; unclassified (3 sources) Hypersomnia with sleep apnea; Translations: [Hypersomnia, unspecified] Onset: 04-17-2024 04-17-2024 Chronic Spondylosis; intervertebral disc disorders; other back problems (8 sources) Spondylosis without myelopathy or radiculopathy, cervical region; Translations: [Spondylosis without myelopathy or radiculopathy, thoracic region] Onset: 11-05-2022 09-29-2023 Chronic Spondylosis; intervertebral disc disorders; other back [...] Problem Classification Problem Date Documented Date Episodic/Chronic Abdominal pain (11 sources) Unspecified abdominal pain; Translations: [Pelvic and perineal pain] Onset: 10-30-2022 Episodic Calculus of urinary tract (20 sources) Calculus of kidney; Translations: [Kidney stone] Onset: 07-08-2017 Episodic Immunizations and screening for infectious disease (2 [...] NEOPLSM OT GENIT ORGN] Onset: 06-25-2022 Episodic Residual codes; unclassified (3 sources) Family history of malignant neoplasm of breast in first degree relative; Translations: [Family history of malignant neoplasm of breast] Onset: 09-29-2023 09-29-2023 Episodic Residual codes; unclassified (3 sources) Bilateral lower limb edema; Translations: [Localized edema] Onset: 09-29-2023 09-29-2023 Episodic Unclassified (1 source) Contact with and [...] as low as reasonably achievable. Ordering Provider: Yovani Walter FINAL REPORT Dictated: 02/21/2024 2:24 pm Fidel Diamond DO Signed (Electronic Signature): 02/21/2024 2:24 pm Signed by: Fidel Diamond DO Transcribed by: ADILENE Technologist: GALLO Roe [facility] Consent for Treatmenton 01-19 Consent for Treatment [id number] 0TIFF Normal [facility] Physician Orderon 01-26-2024 Physician Order [id number] 0TIFF Normal [facility] RAD - MISCon 09-23-2023 RAD - MISC [id number]#1.0 0TIFF Normal [facility] RAD - Ultrasound Reporton RAD - Ultrasound Report [id number] 0TIFF Normal [facility] Urinalysis - AUTOMATEDon Appearance (U) clear [employer] Other Bilirubin Ql (U) Negative [employer] Other Color (U) yellow [facility] Other Glucose Ql (U) Negative [employer] Other Hemoglobin Ql (U) small [employer] Other Ketones Ql (U) Negative [employer] Other Leukocyte esterase Test strip Ql (U) Negative [employer] Other Nitrite Ql (U) Negative [employer] Other pH (U) 7.0 [pH] [employer] Other Protein Ql (U) Negative [employer] Other Specific gravity (U) [Rel density] 1.025 [employer] Other Urobilinogen (U) [Mass/Vol] 0.2 mg/dL [employer] Other Urinalysis - AUTOMATED [facility] Other XR foot LT min 3V*on 023 XR foot LT min 3V* [facility] [place] [address] XRay Report Signed Patient: Lul Britton MR#: [id number] 6 : 1985 Acct:[id number] Age/Sex: 37 / F ADM Date: 03/06/23 Loc: XDUCLY Room: Type: [facility] Attending Dr: Leana Soler APRN Copies to: [...] Selena Thomson M.D.03/06/2023 2:30 PM Dictation Location: [place] [address] Transcribed By: [facility] 03/06/23 1430 Dictated By: Selena Thomson MD 03/06/23 1429 Signed By: 03/06/23 1430 Normal [facility] XR foot LT min 3V* [facility] [email or web address] Other XR foot LT min 3V* [facility] Other XR foot LT min 3V* [address] [place] [address] [employer] Other XR foot LT min 3V* [place] [address] [employer] Other XR foot LT min 3V* XRay Report [employer] Other XR foot LT min 3V* Signed [facility] Other XR foot LT min 3V* Patient: Lul Britton MR#: [id number] [employer] Other XR foot LT min 3V* 6 [facility] Other XR foot LT min 3V* : 1985 Acct:[id number] [employer] Other XR foot LT min 3V* Age/Sex: 37 / F ADM Date: 03/06/23 [employer] Other XR foot LT min 3V* Loc: XDUCLY Room: Type: [facility] [employer] Other XR foot LT min 3V* Attending Dr: Leana Soler APRN [employer] Other XR foot LT min 3V* Copies to: Leana Soler APRN [employer] Other XR foot LT min 3V* Ordering Provider: Leana Soler APRN [employer] Other XR foot LT min 3V* Date of Service: 03/06/23 [employer] Other XR foot LT min 3V* XR/XR foot LT min 3V*: M79.672 [employer] Other XR foot LT min 3V* LEFT FOOT - 3 views [employer] Other XR foot LT min 3V* CLINICAL DATA: Dorsa l foot pain for the past 5 days. No injury [facility] Other XR foot LT min 3V* COMPARISON: None [facility] Other XR foot LT min 3V* AP, lateral and oblique views were obtained. There is no evidence of fracture or dislocation. [employer] Other XR foot LT min 3V* There are posterior and plantar calcaneal spurs. There is soft tissue swelling over the dorsum of [employer] Other XR foot LT min 3V* foot. The soft tissu es of the ankle are also prominent. [employer] Other XR foot LT min 3V* XR/XR foot LT min 3V* [facility] Other XR foot LT min 3V* IMPRESSION: [facility] Other XR foot LT min 3V* NO ACUTE BONY FINDINGS. [facility] Other XR foot LT min 3V* Impression dictated by: Selena Thomson M.D.03/06/2023 2:30 PM [facility] Other XR foot LT min 3V* Dictation Location: [id number] [email or web address] Other XR foot LT min 3V* Transcribed By: NESSA 03/06/[address] [email or web address] Other XR foot LT min 3V* Dictated By: Selena Thomson MD 03/06/[address] [facility] [email or web address] Other XR foot LT min 3V* Signed By: [facility] Other XR foot LT min 3V* 03/06/23 1430 [facility] [email or web address] Other CITRATE URINE 24HRon 023 Citric Acid, U, 24hr 410 mg/24 hr Normal 320-1240 [facility] Comment on above: Result Comment: This test was developed and its performance characteristics determined by [employer]. It has not been cleared or approved by the Food and Drug Administration. Performed By: #### O X24HR #### [facility] [address] [place] [address] Dr. Neil Krishnamurthy Citric Acid, Urine 200 mg/L Normal Undefined [facility] Comment on above: Performed By: #### O X24HR #### [facility] [address] [place] [address] [address] Neil Krishnamurthy OXALATE 24HR URINEon 023 Oxalates, Urine 7 mg/L Normal Undefined [facility] Comment on above: Performed By: #### O X24HR #### [facility] [address] [place] [address] Dr. Neil Krishnamurthy Oxalates, Urine 24hr 14 mg/24 hr Normal 4-31 [facility] Comment on above: Performed By: #### O X24HR #### [facility] [address] [place] [address] Dr. Neil Krishnamurthy MAGNESIUM 24HR URINEon 12-07 Magnesium 24hr Urine 116.9 mg/24 hr Normal 12.0-293.0 [facility] Comment on above: Performed By: #### C O2, CL, BUN, CREA, URIC, K, CA, NA #### [facility] [address] [place] [address] Dr. Neil Krishnamurthy Magnesium UR 5.7 mg/dL Normal Not Estab. [facility] Comment on above: Performed By: #### C O2, CL, BUN, CREA, URIC, K, CA, NA #### [facility] [address] [place] [address] Dr. Neil Krishnamurthy PHOSPHORUS 24HR URINEon 11-18 Phosphorus, Urine 56.6 mg/dL Normal Not Estab. The [facility] Comment on above: Performed By: #### O X24HR #### [facility] [address] [place] [address] Dr. Neil Krishnamurthy Phosphorus, Urine 24hr 1160 mg/24 hr Critically high 261-1078 [facility] Comment on above: Performed By: #### O X24HR #### [facility] [address] [place] [address] Dr. Neil Krishnamurthy PTH INTACTon 12-07-2022 PTH, Intact 41 pg/mL Normal 15-65 [facility] Comment on above: Performed By: #### O X24HR #### [facility] [address] [place] [address] Dr. Neil Krishnamurthy URIC ACID 24 HR URINEon 11-18 Uric Acid, Urine 23.4 mg/dL Normal Not Estab. [facility] Comment on above: Performed By: #### O X24HR #### [facility] [address] [place] [address] Dr. Neil Krishnamurthy Uric Acid, Urine 24hr 479.7 mg/24 hr Normal 173.7-902.1 [facility] Comment on above: Performed By: #### O X24HR #### [facility] [address] [place] [address] Dr. Neil Krishnamurthy BUNon 12-06-2022 Urea nitrogen [Mass/Vol] 12.0 mg/dL Normal 7.0-18.0 [facility] Comment on above: Performed By: #### C O2, CL, BUN, CREA, URIC, K, CA, NA #### [facility] [address] [place] [address] Dr. Neil Krishnamurthy CALCIUMon 12-06-2022 Calcium [Mass/Vol] 8.6 mg/dL Normal 8.5-10.1 [facility] Comment on above: Performed By: #### O X24HR #### [facility] [address] [place] [address] Dr. Neil Krishnamurthy CALCIUM 24 HR URINEon 2022 CALC, 24 HR UR 479.7 mg/24 hr Critically high 100.0-300.0 [facility] Comment on above: Performed By: #### V AGINT #### [facility] [address] [place] [address] Dr. Neil Krishnamurthy UR CALCIUM 23.4 mg/dL Critically high 5.1-21.0 [facility] Comment on above: Performed By: #### V AGINT #### [facility] [address] [place] [address] Dr. Neil Krishnamurthy UR TOT VOL 2050 ml/24 HR Normal [facility] Comment on above: Performed By: #### V AGINT #### [facility] [address] [place] [address] Dr. Neil Krishnamurthy Performed By: #### C O2, CL, BUN, CREA, URIC, K, CA, NA #### [facility] [address] [place] [address] Dr. Neil Krishnamurthy CHLORIDEon 12-06-2022 Chloride [Moles/Vol] 106 mmol/L Normal 98-107 [facility] Comment on above: Performed By: #### C O2, CL, BUN, CREA, URIC, K, CA, NA #### [facility] [address] [place] [address] Dr. Neil Krishnamurthy CO2on 12-06-2022 CO2 [Moles/Vol] 25.7 mmol/L Normal 21.0-32.0 [facility] Comment on above: Performed By: #### C O2, CL, BUN, CREA, URIC, K, CA, NA #### [facility] [address] [place] [address] Dr. Neil Krishnamurthy CREA 24 HR URINEon CREA, 24 HR UR 1371.04 mg/24 hr Normal 800.00-1, 800. 00 [facility] Comment on above: Performed By: #### C O2, CL, BUN, CREA, URIC, K, CA, NA #### [facility] [address] [place] [address] Dr. Neil Krishnamurthy URINE CREAT 66.88 mg/dL Normal 20.00-300.00 [facility] Comment on above: Performed By: #### C O2, CL, BUN, CREA, URIC, K, CA, NA #### [facility] [address] [place] [address] Dr. Neil Krishnamurthy CREATININEon 12-06-2022 Creatinine [Mass/Vol] 0.78 mg/dL Normal 0.55-1.02 [facility] Comment on above: Performed By: #### C O2, CL, BUN, CREA, URIC, K, CA, NA #### [facility] [address] [place] [address] Dr. Neil Krishnamurthy EGFR-AF CANADIAN >60 Normal >=60 [facility] Comment on above: Performed By: #### C O2, CL, BUN, CREA, URIC, K, CA, NA #### [facility] [address] [place] [address] Dr. Neil Krishnamurthy EGFR-NON AF CANADIAN >60 Normal >=60 [facility] Comment on above: Performed By: #### C O2, CL, BUN, CREA, URIC, K, CA, NA #### [facility] [address] [place] [address] Dr. Neil Krishnamurthy NAon 12-06-2022 Sodium [Moles/Vol] 139 mmol/L Normal 136-145 [facility] Comment on above: Performed By: #### C O2, CL, BUN, CREA, URIC, K, CA, NA #### [facility] [address] [place] [address] Dr. Neil Krishnamurthy POTASSIUMon 12-06-2022 Potassium [Moles/Vol] 4.1 mmol/L Normal 3.5-5.1 [facility] Comment on above: Performed By: #### C O2, CL, BUN, CREA, URIC, K, CA, NA #### [facility] [address] [place] [address] [address] Neil Krishnamurthy SODIUM 24 HR URINEon 12-06-2 023 NA, 24 HR UR 211 mmol/24 hr Normal 40-220 [facility] Comment on above: Performed By: #### C O2, CL, BUN, CREA, URIC, K, CA, NA #### [facility] [address] [place] [address] [address] Neil Krishnamurthy Sodium (U) [Moles/Vol] 103 mmol/L Critically high 30-90 [facility] Comment on above: Performed By: #### C O2, CL, BUN, CREA, URIC, K, CA, NA #### [facility] [address] [place] [address] Dr. Neil Krishnamurthy URIC ACID SERUMon 12-06-2022 Urate [Mass/Vol] 5.0 mg/dL Normal 2.6-6.0 [facility] Comment on above: Performed By: #### C O2, CL, BUN, CREA, URIC, K, CA, NA #### [facility] [address] [place] [address] Dr. Neil Krishnamurthy ECHOCARDIO M/2D COMPLETEon 0 11-17-2022 ECHOCARDIO M/2D COMPLETE Patient: LUL BRITTON Exam Date: 11/17/2022 : 1985 Gender:F Ordering : DR KIRBY ALBERTO . Admission #: [id number] Family : Order #: [id number] CLICK HERE TO VIEW EXAM ECHOCARDIOGRAM REPORT [...] Onofre M.D. on 11/18/2022 at 09:50 Normal [facility] PELVIS AND TRANSVAGon US PELVIS [...] RIC QUEZADA Date: 2022-11-01 07:20 Normal [facility] XR RIBS RT PA Karl 3 [...] RIC QUEZADA Date: 2022-11-01 07:12 Normal [facility] XR TSPINE MIN 4 VIEWSon 10-20 [...] by: RIC QUEZADA Date: 2022-11-01 07:09 Normal [facility] CREATININEon 10-12-2022 Creatinine [Mass/Vol] 0.91 mg/dL Normal 0.55-1.02 [facility] Comment on above: Performed By: #### O X24HR #### [facility] [address] [address] [address] Neil Krishnamurthy EGFR-AF CANADIAN >60 Normal >=60 [facility] Comment on above: Performed By: #### O X24HR #### [facility] [address] [address] [address] Neil Krishnamurthy EGFR-NON AF CANADIAN >60 Normal >=60 [facility] Comment on above: Performed By: #### O X24HR #### [facility] [address] [place] [address] Dr. Neil Krishnamurthy XR IVPon 10-12-2022 XR IVP EXAMINATION: XR IVP HISTORY: Kidney stone COMPARISON: No relevant comparison available. TECHNIQUE: After obtaining patient consent a instructor painting image was obtained followed by injection of [...] by: RIC QUEZADA Date: 2022-10-12 09:48 Normal [facility] XR KUB 1 VIEWon 10-05-2022 XR [...] RIC QUEZADA Date: 2022-10-05 07:35 Normal [facility] COVID/FLU RT-PCRon SARS-CoV-2 (COVID-19) RNA BRANDIE+probe Ql (Unsp spec) Negative [facility] Other COVID/FLU RT-PCR Negative [employer] Other XR KUB 1 VIEWon 08-30-2022 [...] RIC QUEZADA Date: 2022-08-30 07:28 Normal [facility] CBC AUTO DIFFon 07-13-2022 BASO # 0.0 103/ul Normal 0.0-0.1 [facility] Comment on above: Performed By: #### V AGINT #### [facility] [address] [place] [address] Dr. Neil Krishnamurthy Basophils/100 WBC (Bld) 0.5 % Normal 0.2-2.0 [facility] Comment on above: Performed By: #### V AGINT #### [facility] [address] [place] [address] Dr. Neil Krishnamurthy EO # 0.2 103/ul Normal 0.0-0.7 [facility] Comment on above: Performed By: #### V AGINT #### [facility] [address] [place] [address] Dr. Neil Krishnamurthy Eosinophils/100 WBC (Bld) 1.9 % Normal 0.9-7.0 [facility] Comment on above: Performed By: #### V AGINT #### [facility] [address] [place] [address] Dr. Neil Krishnamurthy Erythrocyte distribution width (RBC) [Ratio] 11.7 % Normal 11.0-15.0 [facility] Comment on above: Performed By: #### V AGINT #### [facility] [address] [place] [address] Dr. Neil Krishnamurthy Hematocrit (Bld) [Volume fraction] 41.1 % Normal 36.0-48.0 [facility] Comment on above: Performed By: #### V AGINT #### [facility] [address] [place] [address] Dr. Neil Krishnamurthy Hemoglobin (Bld) [Mass/Vol] 13.7 g/dL Normal 12.0-16.0 [facility] Comment on above: Performed By: #### V AGINT #### [facility] [address] [place] [address] Dr. Neil Krishnamurthy IG # 0.03 10e3/ul Normal 0.00-0.03 [facility] Comment on above: Performed By: #### V AGINT #### [facility] [address] [place] [address] Dr. Neil Krishnamurthy IG % 0.4 % Normal 0.0-0.5 [facility] Comment on above: Performed By: #### V AGINT #### [facility] [address] [place] [address] Dr. Neil Krishnamurthy LYMPH # 2.8 103/ul Normal 1.2-3.8 [facility] Comment on above: Performed By: #### V AGINT #### [facility] [address] [place] [address] Dr. Neil Krishnamurthy Lymphocytes/100 WBC (Bld) 32.9 % Normal 20.5-60.0 [facility] Comment on above: Performed By: #### V AGINT #### [facility] [address] [place] [address] Dr. Neil Krishnamurthy MANUAL DIFF REQ NO Normal [facility] Comment on above: Performed By: #### V AGINT #### [facility] [address] [place] [address] Dr. Neil Krishnamurthy MCH (RBC) [Entitic mass] 30.4 pg Normal 26.7-34.0 [facility] Comment on above: Performed By: #### V AGINT #### [facility] [address] [place] [address] Dr. Neil Krishnamurthy MCHC (RBC) [Mass/Vol] 33.3 g/dL Normal 29.9-35.2 [facility] Comment on above: Performed By: #### V AGINT #### [facility] [address] [place] [address] Dr. Neil Krishnamurthy MCV (RBC) [Entitic vol] 91.3 fL Normal 81.0-99.0 [facility] Comment on above: Performed By: #### V AGINT #### [facility] [address] [place] [address] Dr. Neil Krishnamurthy MONO # 0.7 103/ul Normal 0.3-0.8 [facility] Comment on above: Performed By: #### V AGINT #### [facility] [address] [place] [address] Dr. Neil Krishnamurthy Monocytes/100 WBC (Bld) 8.0 % Normal 1.7-12.0 [facility] Comment on above: Performed By: #### V AGINT #### [facility] [address] [place] [address] Dr. Neil Krishnamurthy NEUT # 4.8 103/ul Normal 1.4-6.5 [facility] Comment on above: Performed By: #### V AGINT #### [facility] [address] [place] [address] Dr. Neil Krishnamurthy Neutrophils/100 WBC (Bld) 56.3 % Normal 43.0-75.0 [facility] Comment on above: Performed By: #### V AGINT #### [facility] [address] [place] [address] Dr. Neil Krishnamurthy Platelet mean volume (Bld) [Entitic vol] 11.0 fL Normal 9.5-13.5 [facility] Comment on above: Performed By: #### V AGINT #### [facility] [address] [place] [address] Dr. Neil Krishnamurthy PLT 242 103/ul Normal 150-450 [facility] Comment on above: Performed By: #### V AGINT #### [facility] [address] [place] [address] Dr. Neil Krishnamurthy RBC 4.50 106/ul Normal 4.20-5.40 [facility] Comment on above: Performed By: #### V AGINT #### [facility] [address] [place] [address] Dr. Neil Krishnamurthy WBC 8.5 103/ul Normal 4.0-11.0 [facility] Comment on above: Performed By: #### V AGINT #### [facility] [address] [place] [address] Dr. Neil Krishnamurthy GLYCOHEMOGLOBIN A1Con 2021 ADA RECOMMENDATION SEE BELOW Normal [facility] Comment on above: Result Comment: ADA RECOMMENDED LIMIT 4.0 - 6.0 ADA THERAPEUTIC TARGET < 7.0 ACTION SUGGESTED > 7.0 Performed By: #### V AGINT #### [facility] [address] [place] [address] Dr. Neil Krishnamurthy Glucose [Mass/Vol] 97 mg/dL Normal [facility] Comment on above: Performed By: #### V AGINT #### [facility] [address] [place] [address] Dr. Neil Krishnamurthy HbA1c (Bld) [Mass fraction] 5.0 % Normal 4.5-6.2 [facility] Comment on above: Performed By: #### V AGINT #### [facility] [address] [place] [address] Dr. Neil Krishnamurthy LIPID PROFILEon 07-13-2022 CHOL-HDL RATIO NORM SEE BELOW Normal [facility] Comment on above: Result Comment: 3.3 - 4.4 LOW RISK 4.4 - 7.1 AVERAGE RISK 7.1 - 11.0 MODERATE RISK >11.0 HIGH RISK Performed By: #### O X24HR #### [facility] [address] [address] [address] Neil Krishnamurthy Cholesterol [Mass/Vol] 157 mg/dL Normal <=200 [facility] Comment on above: Performed By: #### O X24HR #### [facility] [address] [address] [address] Neil Krishnamurthy Cholesterol in HDL [Mass/Vol] 50 mg/dL Normal 40-60 [facility] Comment on above: Performed By: #### O X24HR #### [facility] [address] [address] [address] Neil Krishnamurthy Cholesterol in LDL [Mass/Vol] 79.4 mg/dL Normal [facility] Comment on above: Performed By: #### O X24HR #### [facility] [address] [address] [address] Neil Krishnamurthy Cholesterol.total/C holesterol in HDL [Mass ratio] 3.1 {ratio} Normal [facility] Comment on above: Performed By: #### O X24HR #### [facility] [address] [address] [address] Neil Krishnamurthy HDL NORMAL > or = 60 mg/dl - LO W CARDIOVASCULAR RISK <40 mg/dl - HIGH CARDIOVASCULAR RISK Normal [facility] Comment on above: Performed By: #### O X24HR #### [facility] [address] [address] [address] Neil Krishnamurthy LDL CALC NORMAL SEE BELOW Normal [facility] Comment on above: Result Comment: <100 mg/dl OPTIMAL 100 - 129 mg/dl NEAR OR ABOVE OPTIMAL 130 - 159 mg/dl BORDERLINE HIGH 160 - 189 mg/dl HIGH >190 mg/dl VERY HIGH Performed By: #### O X24HR #### [facility] [address] [place] [address] Dr. Neil Krishnamurthy Triglyceride [Mass/Vol] 138 mg/dL Normal <=150 [facility] Comment on above: Performed By: #### O X24HR #### [facility] [address] [place] [address] Dr. Neil Krishnamurthy VLDL CALC 27.6 mg/dL Normal [facility] Comment on above: Performed By: #### O X24HR #### [facility] [address] [address] [address] Neil Krishnamurthy LIVER PROFILEon 07-13-2022 Albumin [Mass/Vol] 3.5 g/dL Normal 3.4-5.0 [facility] Comment on above: Performed By: #### O X24HR #### [facility] [address] [place] [address] Dr. Neil Krishnamurthy Albumin/Globulin [Mass ratio] 1.0 {ratio} Normal [facility] Comment on above: Performed By: #### O X24HR #### [facility] [address] [place] [address] Dr. Neil Krishnamurthy ALP [Catalytic activity/Vol] 83 U/L Normal 46-116 [facility] Comment on above: Performed By: #### O X24HR #### [facility] [address] [place] [address] Dr. Neil Krishnamurthy ALT [Catalytic activity/Vol] 19 U/L Normal 14-59 [facility] Comment on above: Performed By: #### O X24HR #### [facility] [address] [place] [address] Dr. Neil Krishnamurthy AST [Catalytic activity/Vol] 15 U/L Normal 15-37 [facility] Comment on above: Performed By: #### O X24HR #### [facility] [address] [place] [address] Dr. Neil Krishnamurthy BILI, CONJUGATED 0.1 mg/dL Normal 0.0-0.2 [facility] Comment on above: Performed By: #### O X24HR #### [facility] [address] [place] [address] Dr. Neil Krishnamurthy Bilirubin [Mass/Vol] 0.6 mg/dL Normal 0.2-1.0 [facility] Comment on above: Performed By: #### O X24HR #### [facility] [address] [place] [address] Dr. Neil Krishnamurthy Globulin (S) [Mass/Vol] 3.5 g/dL Normal [facility] Comment on above: Performed By: #### O X24HR #### [facility] [address] [place] [address] Dr. Neil Krishnamurthy Protein [Mass/Vol] 7.0 g/dL Normal 6.4-8.2 [facility] Comment on above: Performed By: #### O X24HR #### [facility] [address] [place] [address] Dr. Neil Krishnamurthy PROF CHEM 8 (BAS METB)on Anion gap [Moles/Vol] 10.8 mmol/L Normal [facility] Comment on above: Performed By: #### O X24HR #### [facility] [address] [place] [address] Dr. Neil Krishnamurthy Calcium [Mass/Vol] 8.2 mg/dL Critically low 8.5-10.1 [facility] Comment on above: Performed By: #### O X24HR #### [facility] [address] [place] [address] Dr. Neil Krishnamurthy Chloride [Moles/Vol] 105 mmol/L Normal 98-107 [facility] Comment on above: Performed By: #### O X24HR #### [facility] [address] [place] [address] Dr. Neil Krishnamurthy CO2 [Moles/Vol] 24.5 mmol/L Normal 21.0-32.0 [facility] Comment on above: Performed By: #### O X24HR #### [facility] [address] [place] [address] Dr. Neil Krishnamurthy Creatinine [Mass/Vol] 0.74 mg/dL Normal 0.55-1.02 [facility] Comment on above: Performed By: #### O X24HR #### [facility] [address] [place] [address] Dr. Neil Krishnamurthy EGFR-AF CANADIAN >60 Normal >=60 [facility] Comment on above: Performed By: #### O X24HR #### [facility] [address] [address] [address] Neil Krishnamurthy EGFR-NON AF CANADIAN >60 Normal >=60 [facility] Comment on above: Performed By: #### O X24HR #### [facility] [address] [address] [address] Neil Krishnamurthy Glucose [Mass/Vol] 106 mg/dL Normal 74-106 [facility] Comment on above: Performed By: #### O X24HR #### [facility] [address] [address] [address] Neil Krishnamurthy Potassium [Moles/Vol] 3.5 mmol/L Normal 3.5-5.1 [facility] Comment on above: Performed By: #### O X24HR #### [facility] [address] [address] [address] Neil Krishnamurthy Sodium [Moles/Vol] 137 mmol/L Normal 136-145 [facility] Comment on above: Performed By: #### O X24HR #### [facility] [address] [address] [address] Neil Krishnamurthy Urea nitrogen [Mass/Vol] 11.0 mg/dL Normal 7.0-18.0 [facility] Comment on above: Performed By: #### O X24HR #### [facility] [address] [place] [address] Dr. Neil Krishnamurthy Urea nitrogen/Creatinine [Mass ratio] 14.8 mg/mg Normal [facility] Comment on above: Performed By: #### O X24HR #### [facility] [address] [address] [address] Neil Krishnamurthy TSHon 07-13-2022 TSH 1.166 uIU/mL Normal 0.358-3.740 [facility] Comment on above: Performed By: #### O X24HR #### [facility] [address] [address] [address] Neil Krishnamurthy VITAMIN D 25 OHon 07-13-2022 VIT D 25-OH 23.8 ng/mL Normal [facility] Comment on above: Performed By: #### V ITAD #### [facility] [address] [address] [address] Neil Krishnamurthy VIT D RANGES SEE BELOW Normal [facility] Comment on above: Result Comment: <20 ng/mL Vit D deficient 20 - <30 ng/mL Vit D insufficient 30 - 100 ng/mL Vit D sufficient >100 ng/mL Potential Toxicity Performed By: #### V ITAD #### [facility] [address] [address] [address] Neil Krishnamurthy MG MAMM SCREEN 3D MARKEL CADon 06-23-2022 MG MAMM SCREEN 3D MARKEL CAD Patient: LUL BRITTON Exam Date: 06/23/2022 : 1985 Gender:F Ordering : DR KATHY BARRAGAN . Admission #: [id number] Family : Order #: [id number] CLICK HERE TO VIEW EXAM RADIOLOGY REPORT [...] cervical cancer at age 31. LOCATION: [facility] BREAST COMPOSITION: Heterogeneously dense,which may obscure [...] Quezada MD on 06/23/2022 at 11:17 Normal [facility] PAP ACOG PANEL 2: 30 to 65on 06-16-2022 . . Normal [facility] Comment on above: Result Comment: Perf ormed at: [facility] Performed By: #### C O2, CL, BUN, CREA, URIC, K, CA, NA #### [facility] [address] [address] [address] Neil Krishnamurthy Age Gdln ACOG Testing 30-65 Normal [facility] Comment on above: Performed By: #### C O2, CL, BUN, CREA, URIC, K, CA, NA #### [facility] [address] [address] [address] Neil Krishnamurthy DIAGNOSIS: Comment Normal [facility] Comment on above: Result Comment: NEGA TIVE FOR INTRAEPITHELIAL LESION OR MALIGNANCY. Performed at: [facility] Performed By: #### C O2, CL, BUN, CREA, URIC, K, CA, NA #### [facility] [address] [address] [address] Neil Krishnamurthy HPV Aptima Negative Normal Negative [facility] Comment on above: Result Comment: This nucleic acid amplification test detects fourteen high-risk HPV types (16,18,31,33,35,39,45,51,52,56,58,59,66,68) without differentiation. Performed at: =G Performed By: #### C O2, CL, BUN, CREA, URIC, K, CA, NA #### [facility] [address] [address] [address] Neil Krishnamurthy Methodology: Comment Normal [facility] Comment on above: Result Comment: This liquid based ThinPrep(R) pap test was screened with the use of an image guided system. Performed at: [facility] Performed By: #### C O2, CL, BUN, CREA, URIC, K, CA, NA #### [facility] [address] [place] [address] Dr. Neil Krishnamurthy Note: Comment Normal [facility] Comment on above: Result Comment: The [...] BUN, CREA, URIC, K, CA, NA #### [facility] [address] [address] [address] Neil Krishnamurthy Performed by: Comment Normal [facility] Comment on above: Result Comment: Fang Song, Non Destructive Evaluation Technician (ASCP) Performed at: [facility] Performed By: #### C O2, CL, BUN, CREA, URIC, K, CA, NA #### [facility] [address] [address] [address] Neil Krishnamurthy Specimen adequacy: Comment Normal [facility] Comment on above: Result Comment: Sati sfactory for evaluation. Endocervical and/or squamous metaplastic cells (endocervical component) are present. Performed at: [facility] Performed By: #### C O2, CL, BUN, CREA, URIC, K, CA, NA #### [facility] [address] [address] [address] Neil Krishnamurthy VAGINITIS/VAGINOSIS DNA PROB Jovi 06-03-2022 Rachel species Negative Normal Negative [facility] Comment on above: Performed By: #### V AGINT #### [facility] [address] [address] [address] Neil Krishnamurthy Gardnerella vaginalis Positive Abnormal Negative [facility] Comment on above: Performed By: #### V AGINT #### [facility] [address] [address] [address] Neil Krishnamurthy Trichomonas vaginalis Negative Normal Negative [facility] Comment on above: Performed By: #### V AGINT #### [facility] [address] [place] [address] Dr. Neil Krishnamurthy COVID Quick Testingon 2020 Result Positive [facility] Other XR ABDOMEN LIMITED (KUB)on XR ABDOMEN LIMITED (KUB) EXAMINATION:SUPINE VIEW(S) OF THE FXBPNOH8007/08/2017 1:38 pmCOMPARISON:October 19, 2010HISTORY:ORDERING SYSTEM PROVIDED HISTORY: [...] by:TIMBO Menendezigned by:Raheel Morales MD07/08/17Final result Normal [facility] Vital Signs Date Time Vital Sign Value Performing Clinician Facility 07-05-2024 11:45-0400 Body height 152.4 cm Kirby Alberto MD Work Phone: [facility] 07-05-2024 11:45-0400 Body mass index (BMI) [Ratio] 44.72 kg/m2 Kirby Alberto MD Work Phone: [facility] 07-05-2024 11:45-0400 Body temperature 97.81 [degF] Kirby Alberto MD Work Phone: [facility] 07-05-2024 11:45-0400 Body weight 103.87 kg Kirby Alberto MD Work Phone: [facility] 07-05-2024 11:45-0400 Diastolic blood pressure 78 mm[Hg] Kirby Alberto MD Work Phone: [facility] 07-05-2024 11:45-0400 Heart rate 97 /min Kirby Alberto MD Work Phone: [facility] 07-05-2024 11:45-0400 Respiratory rate 20 /min Kirby Alberto MD Work Phone: [facility] 07-05-2024 11:45-0400 SaO2% (BldA) [Mass fraction] 98 % Kirby Alberto MD Work Phone: [facility] 07-05-2024 11:45-0400 Systolic blood pressure 136 mm[Hg] Kirby Alberto MD Work Phone: [facility] 09-22-2023 12:00-0500 Body height 152.4 cm Elisabeth aM Other [facility] Other 09-22-2023 12:00-0500 Body mass index (BMI) [Ratio] 41.87 kg/m2 Elisabeth Ma Other [facility] Other 09-22-2023 12:00-0500 Body temperature 97.7 [degF] Elisabeth Ma Other [facility] Other 09-22-2023 12:00-0500 Body weight 97.25 kg Elisabeth Ma Other [facility] Other 09-22-2023 12:00-0500 Diastolic blood pressure 86 mm[Hg] Elisabeth Ma Other [facility] Other 09-22-2023 12:00-0500 Respiratory rate 18 /min Elisabeth Ma Other [facility] Other 09-22-2023 12:00-0500 SaO2% (BldA) [Mass fraction] 99 % Elisabeth Anil Other [facility] Other 09-22-2023 12:00-0500 Systolic blood pressure 124 mm[Hg] Elisabeth Ma Other [facility] Other 03-06-2023 13:50-0400 Body height 152.4 cm Leana Soler Other [facility] Other 03-06-2023 13:50-0400 Body mass index (BMI) [Ratio] 42.3 kg/m2 Leana Soler Other [facility] Other 03-06-2023 13:50-0400 Body temperature 98.2 [degF] Leana Soler Other [facility] Other 03-06-2023 13:50-0400 Body weight 98.25 kg Leana Soler Other [facility] Other 03-06-2023 13:50-0400 Diastolic blood pressure 76 mm[Hg] Leana Soler Other [facility] Other 03-06-2023 13:50-0400 Respiratory rate 18 /min Leana Khanley Other [facility] Other 03-06-2023 13:50-0400 SaO2% (BldA) [Mass fraction] 100 % Leana Soler Other [facility] Other 03-06-2023 13:50-0400 Systolic blood pressure 111 mm[Hg] Leana Soler Other [facility] Other 09-01-2022 17:15-0500 Body height 152.4 cm Jennyfer Ruiz Other [facility] Other 09-01-2022 17:15-0500 Body mass index (BMI) [Ratio] 41.98 kg/m2 Jennyfer Ruiz Other [facility] Other 09-01-2022 17:15-0500 Body temperature 98.4 [degF] Jennyfer Ruiz Other [facility] Other 09-01-2022 17:15-0500 Body weight 97.52 kg Jennyfer Ruiz Other [facility] Other 09-01-2022 17:15-0500 Respiratory rate 18 /min Jennyfer Ruiz Other [facility] Other 09-01-2022 17:15-0500 SaO2% (BldA) [Mass fraction] 99 % Jennyfer Maravillamond Other [facility] Other 04-22-2022 14:30-0400 Body height 152.4 cm Jessenia Ortiz Other [facility] Other 04-22-2022 14:30-0400 Body mass index (BMI) [Ratio] 40.42 kg/m2 Jessenia Ortiz Other [facility] Other 04-22-2022 14:30-0400 Body weight 93.9 kg Jessenia Ortiz Other [facility] Other 04-22-2022 14:30-0400 Diastolic blood pressure 89 mm[Hg] Jessenia Ortiz Other [facility] Other 04-22-2022 14:30-0400 Respiratory rate 18 /min eJssenia Ortiz Other [facility] Other 04-22-2022 14:30-0400 SaO2% (BldA) [Mass fraction] 100 % Jessenia Ortiz Other [facility] Other 04-22-2022 14:30-0400 Systolic blood pressure 116 mm[Hg] Jessenia Ortiz Other [facility] Other 07-22-2021 11:00-0400 Body height 152.4 cm Jennyfer Sara Other [facility] Other 07-22-2021 11:00-0400 Body mass index (BMI) [Ratio] 38.08 kg/m2 Jennyfer Sara Other [facility] Other 07-22-2021 11:00-0400 Body temperature 96.2 [degF] Jennyfer Ruiz Other [facility] Other 07-22-2021 11:00-0400 Body weight 88.45 kg Jennyfer Ruiz Other [facility] Other 07-22-2021 11:00-0400 Respiratory rate 18 /min Jennyfer Ruiz Other [facility] Other 07-22-2021 11:00-0400 SaO2% (BldA) [Mass fraction] 99 % Jennyfer Ruiz Other [facility] Other Encounters Encounter Date Encounter Type Care Provider Facility Start: 07-05-2024 End: 07-05-2024 Bamboo flowsheet Kirby Alberto MD Work Phone: [facility] Start: 07-05-2024 End: 07-05-2024 Bamboo flowsheet Kirby Alberto MD Work Phone: [facility] Start: 07-05-2024 End: 07-05-2024 Office outpatient visit 15 minutes Kirby Alberto MD Work Phone: [facility] Comment on above: Acute bronchitis due to other specified organisms (Primary Dx) Start: 07-05-2024 End: 07-05-2024 ambulatory KIRBY ALBERTO Not Available Start: 06-18-2024 End: 06-18-2024 ambulatory [facility] Start: 06-05-2024 End: 06-05-2024 ambulatory KIRBY ALBERTO Not Available Start: 06-04-2024 End: 06-04-2024 ambulatory Joanne Cameron MD Facility:[facility] Start: 05-14-2024 End: 05-14-[address] [facility] Start: 05-07-2024 End: 05-07-2024 ambulatory [facility] Start: 04-16-2024 End: 04-16-2024 ambulatory Joanne Cameron MD Facility: [facility] Start: 03-26-2024 End: 03-26-2024 ambulatory KIRBY NADERER Not Available Start: 03-15-2024 End: 03-15-2024 ambulatory [facility] Start: 02-21-2024 End: 02-21-2024 ambulatory YOVANI H TIMMIS Not Available Start: 02-17-2024 End: 02-17-2024 ambulatory Yovani H Timmis Facility[facility] Start: 02-17-2024 End: 02-17-2024 Patient encounter procedure Yovani Gustavo [facility] Health Start: 01-16-2024 End: 01-16-2024 ambulatory YOVANI H TIMMIS Not Available Start: 12-20-2023 End: 12-20-2023 ambulatory KIRBY NADERER Not Available Start: 10-04-2023 End: 10-04-2023 ambulatory KIRBY NADERER Not Available Start: 09-22-2023 End: 09-22-2023 ambulatory Elisabeth Ma Other [facility] Other Start: 09-22-2023 Office outpatient vi sit 15 minutes Elisabeth Ma [facility] Start: 09-05-2023 End: 09-05-2023 ambulatory Joanne Cameron MD Facility:[facility] [place] Start: 08-15-2023 End: 08-15-2023 ambulatory Joanne Cameron MD Facility:[facility] [place] Start: 07-05-2023 End: 07-05-2023 Patient encounter procedure CHARLOTTE SCALES [facility] Start: 03-06-2023 End: 03-06-2023 Patient encounter procedure FURNACE PUNCHER Leana Karlene Work Phone: [facility] Work Phone: Start: 03-06-2023 End: 03-06-2023 ambulatory Leana Kristel Karlene [facility] Other Start: 03-06-2023 Office outpatient vi sit 15 minutes Leana Soler [facility] Start: 12-06-2022 End: 12-07-[address] ANNA JERRY . Facility:[facility] Start: 11-17-2022 End: 11-18-[address] KIRBY ALBERTO Facility:[facility] Start: 11-01-2022 End: 12-11-[address] KIRBY ALBERTO Facility:[facility] Start: 10-30-2022 End: 10-31-[address] KIRBY ALBERTO Facility:[facility] Start: 10-12-2022 End: 10-13-[address] KIRBY ALBERTO Facility:[facility] Start: 10-04-2022 End: 10-04-2022 Patient encounter procedure Anna JERRY [facility] Start: 10-02-2022 End: 10-03-[address] ANNA JERRY . Facility:[facility] Start: 09-01-2022 End: 09-01-2022 ambulatory Jennyfer Ruiz Other [facility] Other Start: 09-01-2022 Office outpatient vi sit 15 minutes Jennyfer Ruiz [facility] Start: 08-27-2022 End: 08-28-[address] RIC QUEZADA Facility:[facility] Start: 07-18-2022 Encounter for genera l adult medical examination without abnormal findings DR KIRBY ALBERTO [facility] Start: 07-13-2022 End: [address] [...] 04-22-2022 End: 04-22-2022 ambulatory Jessenia Ortiz Other [facility] Other Start: 04-22-2022 Office outpatient vi sit 15 minutes Jessenia Ortiz [facility] Start: 07-22-2021 End: 07-22-2021 ambulatory Jennyfer Ruiz Other [facility] Other Start: 07-22-2021 Office outpatient vi sit 15 minutes Jennyfer Ruiz [facility] Start: 07-08-2017 End: 07-09-2017 Ambulatory MINGO SCHUMACHER [facility] Procedures Date Procedure Procedure Detail Performing Clinician Start: 03-06-2023 X-ray of left foot FURNACE PUNCHER Leana Soler Work Phone: Start: 07-08-2017 X-ray exam of abdomen Quintin SCHUMACHER Appendectomy Anna JERRY Cholecystectomy Anna KAISER Colonoscopy Anna JERRY Hernia of abdominal cavity (disorder) Anna JERRY Ligation of fallopian tube P atrick CLARITZA Lithotripsy Anna JERRY Plan of Treatment Date Care Activity Detail Author Start: 09-25-2024 End: 09-25-2024 Patient encounter procedure 09/25/2024 3:30 PM EST Office Visit [facility] [address] [place] [address] Kirby Alberto MD [address] [place] [address] [facility] Start: 07-30-2024 ambulatory Ambulatory Facility:[facility] Start: 07-05-2024 End: 07-05-2024 Patient encounter procedure 07/05/2024 11:45 AM EDT Office Visit [facility] [address] [place] [id number] Kirby Alberto MD [address] [place] [address] Arrived [facility] Comment on above: Arrived Start: 05-20-2024 Influenza vaccination Influenza Vacc ine (#1) [facility] Start: 2016 Screening for malign ant neoplasm of cervix [facility] Start: 2007 Screening for malign ant neoplasm of cervix Pap Smear [facility] Immunizations Immunization Date Immunization Notes Care Provider [facility] 05-11-2010 tetanus toxoid, redu jose juan diphtheria toxoid, and acellular pertussis vaccine, adsorbed Anna MarkTend [facility] 01-10-2007 varicella virus vaccine Patr jojre JERRY [facility] 12-07-2006 varicella virus vaccine Patr icchristiano JERRY [facility] 04-25-2006 hepatitis B vaccine, pediatric or pediatric/adolescent dosage Anna JERRY [facility] 12-20-2005 hepatitis B vaccine, pediatric or pediatric/adolescent dosage Anna MarkTend [facility] 11-15-2005 hepatitis B vaccine, pediatric or pediatric/adolescent dosage Anna JERRY [facility] 03-10-1999 diphtheria, tetanus toxoids and acellular pertussis vaccine, unspecified formulation Kirby Alberto MD Work Phone: [facility] 03-10-1999 DTaP, unspecified formulation Anna JERRY [facility] 03-10-1999 measles, mumps and rubella virus vaccine Anna JERRY [facility] Payers Date Payer Category Payer Self-pay 2022 Medicaid [id number] 2022 Unknown 2020 Private Health Insurance [id number] 2017 Unknown [id number] 2.1 6.840.1.845271.19 1986 Unknown [id number] 2.16.84 0.1.625069.3.579.2.593 1986 Unknown [id number] 2.16.84 0.1.336420.3.579.2.593 1986 Unknown [id number] 2.16.84 0.1.033133.3.579.2.593 1986 Unknown [id number] 2.16.84 0.1.028766.3.579.2.593 1986 Unknown [id number] 2.16.84 0.1.362729.3.579.2.593 1986 Unknown [id number] 2.16.84 0.1.998668.3.579.2.593 1986 Unknown [id number] 2.16.84 0.1.739730.3.579.2.593 1986 Unknown [id number] 2.16.84 0.1.569374.3.579.2.593 1986 Unknown [id number] 2.16.84 0.1.798281.3.579.2.593 1986 Unknown [id number] 2.16.84 0.1.663279.3.579.2.593 1986 Unknown [id number] 2.16.84 0.1.825327.3.579.2.593 1986 Unknown [id number] 2.16.84 0.1.312392.3.579.2.1259 1986 Unknown [id number] 2.16.84 0.1.664527.3.579.2.1259 1986 Unknown [id number] 2.16.84 0.1.329673.3.579.2.1259 1986 Unknown [id number] 2.16.84 0.1.139549.3.579.2.1259 1986 Unknown [id number] 2.16.84 0.1.590811.3.579.2.1259 1986 Unknown [id number] 2.16.8 40.1.649708.3.579.2.1244 1986 Unknown [id number] 2.16.8 40.1.994213.3.579.2.1244 1986 Unknown [id number] 2.16.8 40.1.177926.3.579.2.1245 1986 Unknown [id number] 2.16. 840.1.444631.3.579.2.196 1986 Unknown [id number] 2.16. 840.1.335576.3.579.2.196 1986 Unknown [id number] 2.16. 840.1.371199.3.579.2.196 1986 Unknown [id number] 2.16. 840.1.195268.3.579.2.196 1986 Unknown [id number] 2.16. 840.1.018643.3.579.2.196 1986 Unknown [id number] 2.16.84 0.1.529944.3.579.2.1259 1986 Unknown [id number] 2.16.84 0.1.555130.3.579.2.1259 1986 Unknown [id number] 2.16.8 40.1.018138.3.579.2.727 1986 Unknown [id number] 2.16.8 40.1.289735.3.579.2.727 1959 Unknown [id number] 1959 Unknown [id number] 2.1 6.840.1.021178.19 1959 Unknown [id number] Unknown [id number] 2.16.8 40.1.324881.19 Unknown [id number] 2.16.8 40.1.446058.3.579.2.531 Social History Date Type Detail Facility Unknown if ever smoked [facility] Other Start: 09-27-2023 End: 10-04-2023 Sex Assigned At [facility] Start: 10-04-2022 End: 02-08-2023 Tobacco smoking status Never smoked tobacco (finding) [facility] Start: 1985 Sex Assigned At Female [facility] Start: 10-04-2023 Tobacco smoking status TXIS Ex-smoker [facility] History of tobacco use Current smoker [facility] History of tobacco use Cigarette Smoker [facility] Start: 09-27-2023 End: 10-04-2023 Cigarettes smoked current (pack per day) - Reported 0.3 [facility] Start: 10-04-2023 Tobacco use and exposure Smokeless tobacco non-user [facility] Start: 06-05-2024 End: 07-05-2024 Alcoholic beverage intake Lifetime non-drinker (finding) [facility] Within the last year , have you been afraid of your partner or ex-partner? No [facility] How often do you att end meetings of the clubs or organizations you belong to? Patient declined [facility] Are you now , , , , never or living with a partner? [facility] How often to you hav e a drink containing alcohol? Never [facility] How hard is it for y ou to pay for the very basics like food, housing, medical care, and heating Not very hard [facility] Do you feel stress - tense, restless, nervous, or anxious, or unable to sleep at night because your mind is troubled all the time - these days [OSQ] Only a little [facility] (I/We) worried wheth er (my/our) food would run out before (I/we) got money to buy more. Never true [facility] Start: 09-29-2023 Tobacco Comment Vape [facility] Start: 1985 Sex assigned at Not on file [facility] Functional Status Date Assessment Result Facility 07-05-2023 Functional Status N/A [facility] 10-04-2022 Functional Status N/A [facility] Clinical Notes 07-22-2021 to 07-05-2024 Kirby Alberto MD - 07/05/2024 12:01 PM EDTMsin Alberto MD - 07/05/2024 11:45 AM EDT Note Date & Type Note Facility 07-05-2024 History of Presen t illness Narrative Associated Problem(s): Acute bronchitis due to other specified organisms Take antibiotics for 7 days. Use prednisone for inflammation. Use sudafed or other decongestants as needed. Use Robitussin or Robitussin-DM for cough. Can use afrin for congestion but no longer than 3 days. Can use Mucinex to bring up phlegm. Use Motrin or Tylenol as needed for fever, aches, or pains. Increase fluid intake and rest. Should improve over next 5-7 days and if no better or worse call for re-evaluation. Images from the original note were not included. Subjective Patient ID: Lul Britton is a 38 y.o. female who presents for Follow-up (Chest cold/cough). C/o cough, congestion, and rhinorrhea x 1-2 weeks. Temp 101. Severe fatigue and no energy. Frequent cough productive green sputum. Chest tight and SOB. GALLO and sinus pressure in forehead and cheeks along with postnasal drip. Ears plugged and popping. Sore throat and pain to swallow. Mild nausea. Son recently sick. Using OTC medication and mild relief. No improvement in symptoms since onset. Review of Systems Respiratory: Positive for cough and shortness of breath. Negative for wheezing. Cardiovascular: Negative for chest pain and palpitations. Gastrointestinal: Negative for abdominal pain, diarrhea, nausea and vomiting. Genitourinary: Negative for dysuria. Objective Physical Exam Constitutional: General: She is not in acute distress. Appearance: Normal appearance. HENT: Head: Normocephalic. Right Ear: Tympanic membrane normal. Left Ear: Tympanic membrane normal. Eyes: Extraocular Movements: Extraocular movements intact. Pupils: Pupils are equal, round, and reactive to light. Cardiovascular: Rate and Rhythm: Normal rate and regular rhythm. Heart sounds: No murmur heard. No friction rub. No gallop. Pulmonary: Effort: Pulmonary effort is normal. Breath sounds: Normal breath sounds. No wheezing, rhonchi or rales. Abdominal: General: Bowel sounds are normal. There is no distension. Palpations: Abdomen is soft. Tenderness: There is no abdominal tenderness. There is no guarding or rebound. Musculoskeletal: Cervical back: Neck supple. Right lower leg: No edema. Left lower leg: No edema. Neurological: Mental Status: She is alert. Assessment/Plan Problem List Items Addressed This Visit Acute bronchitis due to other specified organisms - Primary Take antibiotics for 7 days. Use prednisone for inflammation. Use sudafed or other decongestants as needed. Use Robitussin or Robitussin-DM for cough. Can use afrin for congestion but no longer than 3 days. Can use Mucinex to bring up phlegm. Use Motrin or Tylenol as needed for fever, aches, or pains. Increase fluid intake and rest. Should improve over next 5-7 days and if no better or worse call for re-evaluation. Relevant Medications levoFLOXacin (Levaquin) 750 MG tablet predniSONE (Deltasone) 50 MG tablet documented in this encounter [facility] 09-22-2023 Evaluation note Encounter Date Diagnosis Assessment Notes Sep, Dysuria (ICD-10 - R30.0) Discussed dipstick findings with patient. Advised patient that there is no evidence of acute UTI. Advised that this is likely related to stone. Recommended ER for further evaluation and workup. Patient verbalizes understanding and is agreeable with treatment plan [facility] Other 09-25-2023 Hospital Discharge instructions Patient Education [...] include: ?8 oz (237 mL) of milk, ujwuvbh-onaggsicbbyd-cdjim milk, and calcium- fortifiedfruit juice. Calcium-fortified means [...] ?Spinach (cooked), rhubarb, beets, sweet potatoes, and [place]an chard. ?Peanuts. ?Potato chips, turkish fries, and baked potatoes with skin on. ?Nuts and nut products. ?Chocolate. If you regularly take a diuretic medicine, make sure to eat at least 1 or 2 servings of fruits or vegetables that are high in potassium each day. These include: ?Avocado. ?Banana. ?[place], prune, carrot, or tomato juice. ?Baked potato. [...] magnesium, fish oil, or vitamin B6. Take dojs-yeq-skgsmyv and prescription medicines only as told by [...] Casseroles. Pizza. Lasagna. Frozen meals. Potato chips. Tanzanian fries. The items listed above may not [...] provider. Document Revised: 05/17/2022 Document Reviewed: 05/17/2022 Link_A_ Media Patient Education 2022 [employer]. Follow Up Care 02/08/2023 16:17:30 With:YORDY WILLSON, CHARLOTTE Lam, URL Address: [address] [place] [address] [phone] When: Unknown Comments:2 yr w/ [facility] and [facility] 06-18-2023 Evaluation note* Encounter Date [...] fever. Patient verbalized understanding of treatment plan. [facility] Other 01-16-2023 Hospital Discharge instructions Patient Education [...] include: ?Spinach. ?Rhubarb. ?Beets. ?Potato chips and turkish fries. ?Nuts. If you regularly take a diuretic medicine, make sure to eat at least 1 2 fruits or vegetables high in potassium each day. These include: ?Avocado. ?Banana. ?[place], prune, carrot, or tomato juice. ?Baked potato. [...] Casseroles. Pizza. Lasagna. Frozen meals. Potato chips. Tanzanian fries. Summary You can reduce your risk [...] 12/31/2011 Document Revised: 12/26/2019 Document Reviewed: 08/16/2017 Link_[employer]_ Media Patient Education 2020 [employer]. Follow Up Care 08/30/2022 15:20:43 With:CLARITZA JOHNSTON, Anna Lorenzana, URL Address: [facility] [address] , [place] [address]- When: Unknown [facility] 12-14-2022 Evaluation note* Encounter Date [...] needed for cough or shortness of breath [facility] Other 08-04-2022 Evaluation note* Encounter Date Diagnosis [...] care provider if no improvement of symptoms. [facility] Other 11-03-2021 Evaluation note* Encounter Date Diagnosis [...] Patient care instructions given in writting by [facility] Care At Home document. [facility] Other Evaluation + Plan note Future Appointments Appointment Date:01/10/2023 03:15:00 PM Scheduled Provider:Anna JERRY MD Location:[facility] Appointment Type:URO Office Visit Diagnostic Tests Pending * Creatinine 10/04/22 [facility] evaluation + Plan note Future Appointments Appointment Date:07/10/2024 02:00:00 PM Scheduled Provider:CHARLOTTE SCALES PA-C Location:[facility] Appointment Type:URO Office Visit [facility] evalqqezrd noteNo assessment information available [facility] Work Phone: eval[facility] note* Diagnosis Migraine without aura and without status migrainosus, not intractable (CMS/HCC)- Primary Generalized anxiety disorder (CMS/HCC) Generalized anxiety disorder Obstructive sleep apnea (adult) (pediatric) Personal history of urinary calculi 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 Bilateral leg edema Edema Migraine without aura and without status migrainosus, not intractable (CMS/HCC)- Primary Generalized anxiety disorder (CMS/HCC) Generalized anxiety disorder Obstructive sleep apnea (adult) (pediatric) Chronic rhinosinusitis Unspecified sinusitis (chronic) Bilateral leg edema Edema Morbid obesity (CMS/HCC) Morbid obesity Obstructive sleep apnea (adult) (pediatric)- Primary Migraine without aura and without status migrainosus, not intractable (CMS/HCC) Generalized anxiety disorder (CMS/HCC) Generalized anxiety disorder Bilateral leg edema Edema Obstructive sleep apnea (adult) (pediatric)- Primary Generalized anxiety disorder (CMS/HCC) Generalized anxiety disorder Migraine without aura and without status migrainosus, not intractable (CMS/HCC) Bilateral leg edema Edema 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 Acute bronchitis due to other specified organisms- Primary [facility] - Reported* Type Description Date Medical History kidney stones Surgical History C section Surgical History appendectomy Surgical History cholecystectomy Surgical History hernia repair Surgical History lithotripsy Surgical History wisdom teeth extract Hospitalization History see above [facility] Other History general Narrative - Reported* Type Description Date Medical History kidney stones Medical History anxiety Medical History migraine headache Surgical History C section Surgical History appendectomy Surgical History cholecystectomy Surgical History hernia repair Surgical History lithotripsy Surgical History wisdom teeth extract Hospitalization History see above [facility] Other History general Narrative - Reported* Type Description Date Medical History kidney stones Medical History anxiety Medical History migraine headache Surgical History C section Surgical History appendectomy Surgical History cholecystectomy Surgical History hernia repair Surgical History lithotripsy Surgical History wisdom teeth extract Surgical History cortisone shots in back Hospitalization History see above [facility] Other Hospital course Narrative No data available for this section [facility] Discharge instructions No data available for this section [facility] No data available for this section [facility] [place] Summary Purpose Family History No Family History [...] section and content) DATE CREATED AUTHOR 03/14/2018 [facility] DATE CREATED AUTHOR AUTHOR'S ORGANIZ ATION 01/19/2023 [facility] DATE CREATED AUTHOR AUTHOR'S ORGANIZ ATION 03/19/2023 [facility] DATE CREATED AUTHOR AUTHOR'S ORGANIZ ATION 04/03/2024 [facility] EPIC DATE CREATED AUTHOR AUTHOR'S ORGANIZ ATION 05/15/2024 [facility] DATE CREATED AUTHOR AUTHOR'S ORGANIZ ATION 06/21/2024 [facility] DATE CREATED AUTHOR AUTHOR'S ORGANIZ ATION 06/22/2024 [facility] DATE CREATED AUTHOR AUTHOR'S ORGANIZ ATION 07/08/2024 [facility] EPIC DATE CREATED AUTHOR AUTHOR'S ORGANIZ ATION 07/16/2024 [facility] REASON FOR VISIT (unrecogniz ed section and content) Reason Comments Follow-up Chest cold/cough Patient Care team informatio n (unrecognized section and content) Team Status: Inactive Member Role Status Dates Leana Soler , KEN Attending Provider Active Membership Solicitor Relationship Specialty Start Date End Date Kirby Alberto MD [address] [place] [address] PCP - General Family Medicine 04/13/23 Mary Thayer MD [address] [place] [address] Family Medicine 04/13/23 Membership Solicitor Relationship Specialty Start Date End Date Kirby Alberto MD [address] [place] [address] PCP - General Family Medicine 04/13/23 Mary Thayer MD [address] [place], [place] [id number] Family Medicine 04/13/23 Goals (unrecognized section and content) Goals may [...] BE BASED ON THE PRIMARY CLINICAL RECORDS. [facility]. provides no warranty or guarantee of the accuracy or completeness of information in this document.
== END 2024-07-18 15:15 | disposition home or self-care (01) ==
LOC: PM 15:15
PROVIDERS: PCP Family Medicine; Visit Provider Nurse Practitioner
DX: M47.814 Spondylosis without myelopathy or radiculopathy, thoracic region (principal); M54.50 Low back pain, unspecified; M46.1 Sacroiliitis, not elsewhere classified; M25.561 Pain in right knee; M25.562 Pain in left knee
CPT/HCPCS: G0463

== ENCOUNTER 2024-07-19 15:33 | Outpatient (OUT) | payer OTHER, SELFPAY ==
--- NOTE | 2024-07-19 15:40 | XR_ITS ---
The [address] [address] Patient Name: LUL BRITTON MRN: [id number] date: 1985 Sex: F Assigned Patient Location: [facility] Current Patient Location: [facility] Accession/Order Number: [id number] Exam Date: 07/19/2024 15:45 Report Date: 07/20/2024 07:07 At the request of: EDGAR RODRIGUEZ Procedure: XR knee MARKEL 4V EXAMINATION: XR knee MARKEL 4V HISTORY: Chronic Bilateral Knee Pain COMPARISON: No relevant comparison available. FINDINGS: RIGHT FINDINGS: BONES: Normal. No significant arthropathy or acute abnormality. SOFT TISSUES: Negative. No visible soft tissue swelling. OTHER: Negative. LEFT FINDINGS: BONES: Normal. No significant arthropathy or acute abnormality. SOFT TISSUES: Negative. No visible soft tissue swelling. OTHER: Negative. XR/XR knee MARKEL 4V IMPRESSION: RIGHT CONCLUSION: Normal LEFT CONCLUSION: Normal Electronically authenticated by: RIC QUEZADA Date: 07/20/2024 07:07
--- NOTE | 2024-07-19 15:40 | XR_ITS ---
The [place] [id number] Patient Name: LUL BRITTON MRN: [id number] date: 1985 Sex: F Assigned Patient Location: [facility] Current Patient Location: [facility] Accession/Order Number: [id number] Exam Date: 07/19/2024 15:45 Report Date: 07/20/2024 07:09 At the request of: EDGAR RODRIGUEZ Procedure: XR lumbar spine min 4V EXAMINATION: XR lumbar spine min 4V HISTORY: Sacroiliitis, Chronic Low Back Pain COMPARISON: No relevant comparison available. FINDINGS: BONES: Minimal spondylosis. No significant facet osteoarthropathy DISC SPACES: Normal. No significant disc height narrowing, subluxation, or endplate abnormality. PARASPINOUS: Negative. No paraspinous abnormality is seen. OTHER: Negative. XR/XR lumbar spine min 4V IMPRESSION: Minimal spondylosis Electronically authenticated by: RIC QUEZADA Date: 07/20/2024 07:09
--- NOTE | 2024-07-19 15:40 | XR_ITS ---
The [address] [address] Patient Name: LUL BRITTON MRN: [id number] date: 1985 Sex: F Assigned Patient Location: [facility] Current Patient Location: Accession/Order Number: [id number] Exam Date: 07/19/2024 15:45 Report Date: 07/20/2024 07:06 At the request of: EDGAR RODRIGUEZ Procedure: XR sacroiliac joint MARKEL PROCEDURE: XR sacroiliac joint MARKEL COMPARISON: None. HISTORY: Sacroiliitis, Chronic Low Back Pain FINDINGS: BONES:No fracture, acute abnormality, or significant arthropathy. SOFT TISSUES:Negative. No visible soft tissue swelling. EFFUSION:None visible. Sacroiliac joints: Negative. XR/XR sacroiliac joint MARKEL IMPRESSION: No radiographic abnormality Electronically authenticated by: RIC QUEZADA Date: 07/20/2024 07:06
--- OUTSIDE RECORDS SUMMARY | 2024-07-19 15:41 | XMS_ITS | CCD ---
Author Organization [facility]ini[facility] Care Team Providers Care [employer] Receiver Name Role Phone WINSOME, MINGO S Unavailable Unavailable BETANCUR, MAYE P Unavailable Unavailable WINSOME, MINGO S Unavailable Unavailable BETANCUR, MAYE P Unavailable Unavailable Jennyfer Ruiz Unavailable Jessenia Ortiz Unavailable KIRBY ALBERTO Primary Care Physician JERRY ., DR CASTILLO Admitting Unavailable JERRY ., DR CASTILLO Consulting Unavailable JERRY ., DR CASTILLO Attending [...] DR CASTILLO Attending Unavailable JERRY ., DR ACSTILLO Admitting Unavailable JERRY ., DR CASTILLO Consulting [...] Leana Soler Unavailable KEN Soler Attending Provider [phone] Leana Soler Attending Unavailable Leana Soler Admitting [...] Eruption of skin (disorder) [facility] (8 sources) Penicillin G Benzathine; Translations: [Penicillin G] Drug allergy rash, Eruption of skin (disorder) [facility] (1 source) Penicillin Drug Allergy [facility] (5 sources) Penicillins; Translations: [PENICILLINS] [...] 2 tablets Orally Once a day Not-Taking/PRN [id number] 60 actuat albuterol 0.09 mg/actuat metered dose [...] hua Not-Taking hydroCHLOROthiaz hua Active polymyxin b 68907 unt/ml / trimethoprim 1 mg/ml ophthalmic solution (1 source) Dihydrofolate Reductase Inhibitor Antibacterial, Polymyxin-class Antibacterial Start: 02-01-2023 take 1 drop(s) into the eye(s) every three hours Polytrim 47570-7.1 UNIT/ML 1 drop into affected eye Ophthalmic every 3 hours while awake for 7 January, Not-Taking Polytrim 40109-7.1 UNIT/ML (1 source) Start: 02-01-2023 take 1 drop(s) into the eye(s) every three hours as needed Polytrim 42663-1.1 UNIT/ML 1 drop into affected eye Ophthalmic [...] DO Transcribed by: ADILENE Technologist: GALLO Roe [facility] Consent for Treatmenton 01-19 Consent for Treatment [id number] Normal [facility] Physician Orderon 01-26-2024 Physician Order [id number] 0TIFF Normal [facility] RAD - MISCon 09-23-2023 RAD - MISC [id number] 0TIFF Normal [facility] RAD - Ultrasound Reporton RAD - Ultrasound Report [id number] [id number] Normal [facility] Urinalysis - AUTOMATEDon Appearance (U) clear [employer] Other Bilirubin Ql (U) Negative [employer] Other Color (U) yellow [facility] Other Glucose Ql (U) Negative [employer] Other Hemoglobin Ql (U) small [facility] [employer] Other Ketones Ql (U) Negative [facility] Other Leukocyte esterase Test strip Ql (U) Negative [facility] Other Nitrite Ql (U) Negative [employer] Other pH (U) 7.0 [pH] [employer] Other Protein Ql (U) Negative [employer] Other Specific gravity (U) [Rel density] 1.025 [facility] Other Urobilinogen (U) [Mass/Vol] 0.2 mg/dL [facility] Other Urinalysis - AUTOMATED [employer] Other XR foot LT min 3V*on 023 XR foot LT min 3V* [facility] [place] [address] XRay Report Signed Patient: Lul Britton MR#: [id number] 6 : 1985 Acct:[id number] Age/Sex: 37 / F ADM Date: 03/06/23 Loc: XDUCLY Room: Type: [facility] Attending Dr: Leana Soler APRN Copies to: [...] Selena Thomson M.D.03/06/2023 2:30 PM Dictation Location: [place] [address] Transcribed By: [facility] 03/06/23 1430 Dictated By: Selena Thomson MD 03/06/23 1429 Signed By: 03/06/23 1430 Normal [facility] XR foot LT min 3V* [facility] [employer] Other XR foot LT min 3V* [facility] [employer] Other XR foot LT min 3V* [address] [place] [address] [employer] Other XR foot LT min 3V* [place] [address] [employer] Other XR foot LT min 3V* XRay Report [employer] Other XR foot LT min 3V* Signed [employer] Other XR foot LT min 3V* Patient: Lul Britton MR#: [id number] [employer] Other XR foot LT min 3V* 6 [employer] Other XR foot LT min 3V* : 1985 Acct:[id number] [employer] Other XR foot LT min 3V* Age/Sex: 37 / F ADM Date: 03/06/23 [facility] Other XR foot LT min 3V* Loc: XDUCLY Room: Type: [facility] [employer] Other XR foot LT min 3V* Attending Dr: Leana Soler APRN [employer] Other XR foot LT min 3V* Copies to: Leana Soler APRN [employer] Other XR foot LT min 3V* Ordering Provider: Leana Soler APRN [employer] Other XR foot LT min 3V* Date of Service: 03/06/23 [employer] Other XR foot LT min 3V* XR/XR foot LT min 3V*: M79.672 [employer] Other XR foot LT min 3V* LEFT FOOT - 3 views [employer] Other XR foot LT min 3V* CLINICAL DATA: Dorsa l foot pain for the past 5 days. No injury [facility] Other XR foot LT min 3V* COMPARISON: None [facility] Other XR foot LT min 3V* AP, lateral and oblique views were obtained. There is no evidence of fracture or dislocation. [employer] Other XR foot LT min 3V* There are posterior and plantar calcaneal spurs. There is soft tissue swelling over the dorsum of [employer] Other XR foot LT min 3V* foot. The soft tissu es of the ankle are also prominent. [employer] Other XR foot LT min 3V* XR/XR foot LT min 3V* [employer] Other XR foot LT min 3V* IMPRESSION: [facility] Other XR foot LT min 3V* NO ACUTE BONY FINDINGS. [facility] Other XR foot LT min 3V* Impression dictated by: Selena Thomson M.D.03/06/2023 2:30 PM [facility] Other XR foot LT min 3V* Dictation Location: RADIO-PC-02 [facility] [employer] Other XR foot LT min 3V* Transcribed By: NESSA 03/06/23 1430 [facility] [employer] Other XR foot LT min 3V* Dictated By: Selena Thomson MD 03/06/23 1429 [facility] [employer] Other XR foot LT min 3V* Signed By: [facility] Other XR foot LT min 3V* 03/06/23 1430 [facility] [employer] Other CITRATE URINE 24HRon 023 Citric Acid, U, 24hr 410 mg/24 hr Normal 320-1240 [facility] Comment on above: Result Comment: This test was developed and its performance characteristics determined by [employer]. It has not been cleared or approved by the Food and Drug Administration. Performed By: #### O X24HR #### [facility] [address] [place] [address] Dr. Neil Krishnamurthy Citric Acid, Urine 200 mg/L Normal Undefined [facility] Comment on above: Performed By: #### O X24HR #### [facility] [address] [place] [address] [address] Neil Krishnamurthy OXALATE 24HR URINEon 023 Oxalates, Urine 7 mg/L Normal Undefined [facility] Comment on above: Performed By: #### O X24HR #### [facility] [address] [place] [address] Dr. Neil Krishnamurthy Oxalates, Urine 24hr 14 mg/24 hr Normal 4-31 [facility] Comment on above: Performed By: #### O X24HR #### [facility] [address] [place] [address] Dr. Neil Krishnamurthy MAGNESIUM 24HR URINEon 12-07 Magnesium 24hr Urine 116.9 mg/24 hr Normal 12.0-293.0 [facility] Comment on above: Performed By: #### C O2, CL, BUN, CREA, URIC, K, CA, NA #### [facility] [address] [place] [address] Dr. Neil Krishnamurthy Magnesium UR 5.7 mg/dL Normal Not Estab. [facility] Comment on above: Performed By: #### C O2, CL, BUN, CREA, URIC, K, CA, NA #### [facility] [address] [place] [address] Dr. Neil Krishnamurthy PHOSPHORUS 24HR URINEon 11-18 Phosphorus, Urine 56.6 mg/dL Normal Not Estab. The [facility] Comment on above: Performed By: #### O X24HR #### [facility] [address] [place] [address] Dr. Neil Krishnamurthy Phosphorus, Urine 24hr 1160 mg/24 hr Critically high 261-1078 [facility] Comment on above: Performed By: #### O X24HR #### [facility] [address] [place] [address] Dr. Neil Krishnamurthy PTH INTACTon 12-07-2022 PTH, Intact 41 pg/mL Normal 15-65 [facility] Comment on above: Performed By: #### O X24HR #### [facility] [address] [place] [address] Dr. Neil Krishnamurthy URIC ACID 24 HR URINEon 11-18 Uric Acid, Urine 23.4 mg/dL Normal Not Estab. [facility] Comment on above: Performed By: #### O X24HR #### [facility] [address] [place] [address] Dr. Neil Krishnamurthy Uric Acid, Urine 24hr 479.7 mg/24 hr Normal 173.7-902.1 [facility] Comment on above: Performed By: #### O X24HR #### [facility] [address] [place] [address] Dr. Neil Krishnamurthy BUNon 12-06-2022 Urea nitrogen [Mass/Vol] 12.0 mg/dL Normal 7.0-18.0 [facility] Comment on above: Performed By: #### C O2, CL, BUN, CREA, URIC, K, CA, NA #### [facility] [address] [place] [address] Dr. Neil Krishnamurthy CALCIUMon 12-06-2022 Calcium [Mass/Vol] 8.6 mg/dL Normal 8.5-10.1 [facility] Comment on above: Performed By: #### O X24HR #### [facility] [address] [place] [address] Dr. Neil Krishnamurthy CALCIUM 24 HR URINEon 2022 CALC, 24 HR UR 479.7 mg/24 hr Critically high 100.0-300.0 [facility] Comment on above: Performed By: #### V AGINT #### [facility] [address] [place] [address] Dr. Neil Krishnamurthy UR CALCIUM 23.4 mg/dL Critically high 5.1-21.0 [facility] Comment on above: Performed By: #### V AGINT #### [facility] [address] [place] [address] Dr. Neil Krishnamurthy UR TOT VOL 2050 ml/24 HR Normal [facility] Comment on above: Performed By: #### V AGINT #### [facility] [address] [place] [address] Dr. Neil Krishnamurthy Performed By: #### C O2, CL, BUN, CREA, URIC, K, CA, NA #### [facility] [address] [place] [address] Dr. Neil Krishnamurthy CHLORIDEon 12-06-2022 Chloride [Moles/Vol] 106 mmol/L Normal 98-107 [facility] Comment on above: Performed By: #### C O2, CL, BUN, CREA, URIC, K, CA, NA #### [facility] [address] [place] [address] Dr. Neil Krishnamurthy CO2on 12-06-2022 CO2 [Moles/Vol] 25.7 mmol/L Normal 21.0-32.0 [facility] Comment on above: Performed By: #### C O2, CL, BUN, CREA, URIC, K, CA, NA #### [facility] [address] [place] [address] Dr. Neil Krishnamurthy CREA 24 HR URINEon CREA, 24 HR UR 1371.04 mg/24 hr Normal 800.00-1, 800. 00 [facility] Comment on above: Performed By: #### C O2, CL, BUN, CREA, URIC, K, CA, NA #### [facility] [address] [place] [address] Dr. Neil Krishnamurthy URINE CREAT 66.88 mg/dL Normal 20.00-300.00 [facility] Comment on above: Performed By: #### C O2, CL, BUN, CREA, URIC, K, CA, NA #### [facility] [address] [place] [address] Dr. Neil Krishnamurthy CREATININEon 12-06-2022 Creatinine [Mass/Vol] 0.78 mg/dL Normal 0.55-1.02 [facility] Comment on above: Performed By: #### C O2, CL, BUN, CREA, URIC, K, CA, NA #### [facility] [address] [place] [address] Dr. Neil Krishnamurthy EGFR-AF CHADIAN >60 Normal >=60 [facility] Comment on above: Performed By: #### C O2, CL, BUN, CREA, URIC, K, CA, NA #### [facility] [address] [place] [address] Dr. Neil Krishnamurthy EGFR-NON AF CHADIAN >60 Normal >=60 [facility] Comment on above: Performed By: #### C O2, CL, BUN, CREA, URIC, K, CA, NA #### [facility] [address] [place] [address] Dr. Neil Krishnamurthy NAon 12-06-2022 Sodium [Moles/Vol] 139 mmol/L Normal 136-145 [facility] Comment on above: Performed By: #### C O2, CL, BUN, CREA, URIC, K, CA, NA #### [facility] [address] [place] [address] Dr. Neil Krishnamurthy POTASSIUMon 12-06-2022 Potassium [Moles/Vol] 4.1 mmol/L Normal 3.5-5.1 [facility] Comment on above: Performed By: #### C O2, CL, BUN, CREA, URIC, K, CA, NA #### [facility] [address] [place] [address] [address] Neil Krishnamurthy SODIUM 24 HR URINEon 12-06-2 023 NA, 24 HR UR 211 mmol/24 hr Normal 40-220 [facility] Comment on above: Performed By: #### C O2, CL, BUN, CREA, URIC, K, CA, NA #### [facility] [address] [place] [address] [address] Neil Krishnamurthy Sodium (U) [Moles/Vol] 103 mmol/L Critically high 30-90 [facility] Comment on above: Performed By: #### C O2, CL, BUN, CREA, URIC, K, CA, NA #### [facility] [address] [place] [address] Dr. Neil Krishnamurthy URIC ACID SERUMon 12-06-2022 Urate [Mass/Vol] 5.0 mg/dL Normal 2.6-6.0 [facility] Comment on above: Performed By: #### C O2, CL, BUN, CREA, URIC, K, CA, NA #### [facility] [address] [place] [address] Dr. Neil Krishnamurthy ECHOCARDIO M/2D COMPLETEon 0 11-17-2022 ECHOCARDIO M/2D COMPLETE Patient: LUL BRITTON Exam Date: 11/17/2022 : 1985 Gender:F Ordering : DR KIRBY ALBERTO . Admission #: [id number] Family : Order #: [id number] CLICK HERE TO VIEW EXAM ECHOCARDIOGRAM REPORT [...] M.D. on 11/18/2022 at 09:50 Normal [facility] US PELVIS AND TRANSVAGon US PELVIS [...] RIC QUEZADA Date: 2022-11-01 07:20 Normal [facility] XR RIBS RT PA Karl 3 [...] RIC QUEZADA Date: 2022-11-01 07:12 Normal [facility] XR TSPINE MIN 4 VIEWSon 10-20 [...] by: RIC QUEZADA Date: 2022-11-01 07:09 Normal [facility] CREATININEon 10-12-2022 Creatinine [Mass/Vol] 0.91 mg/dL Normal 0.55-1.02 [facility] Comment on above: Performed By: #### O X24HR #### [facility] [address] [place] [address] [address] Neil Krishnamurthy EGFR-AF CHADIAN >60 Normal >=60 [facility] Comment on above: Performed By: #### O X24HR #### [facility] [address] [place] [address] [address] Neil Krishnamurthy EGFR-NON AF CHADIAN >60 Normal >=60 [facility] Comment on above: Performed By: #### O X24HR #### [facility] [address] [place] [address] Dr. Neil Krishnamurthy XR IVPon 10-12-2022 XR IVP EXAMINATION: XR IVP HISTORY: Kidney stone COMPARISON: No relevant comparison available. TECHNIQUE: After obtaining patient consent a managed care liaison image was obtained followed by injection of [...] by: RIC QUEZADA Date: 2022-10-12 09:48 Normal [facility] XR KUB 1 VIEWon 10-05-2022 XR [...] RIC QUEZADA Date: 2022-10-05 07:35 Normal [facility] COVID/FLU RT-PCRon SARS-CoV-2 (COVID-19) RNA BRANDIE+probe Ql (Unsp spec) Negative [facility] Other COVID/FLU RT-PCR Negative [facility] [employer] Other XR KUB 1 VIEWon 08-30-2022 XR [...] RIC QUEZADA Date: 2022-08-30 07:28 Normal [facility] CBC AUTO DIFFon 07-13-2022 BASO # 0.0 103/ul Normal 0.0-0.1 [facility] Comment on above: Performed By: #### V AGINT #### [facility] [address] [place] [address] Dr. Neil Krishnamurthy Basophils/100 WBC (Bld) 0.5 % Normal 0.2-2.0 [facility] Comment on above: Performed By: #### V AGINT #### [facility] [address] [place] [address] Dr. Neil Krishnamurthy EO # 0.2 103/ul Normal 0.0-0.7 [facility] Comment on above: Performed By: #### V AGINT #### [facility] [address] [place] [address] Dr. Neil Krishnamurthy Eosinophils/100 WBC (Bld) 1.9 % Normal 0.9-7.0 [facility] Comment on above: Performed By: #### V AGINT #### [facility] [address] [place] [address] Dr. Neil Krishnamurthy Erythrocyte distribution width (RBC) [Ratio] 11.7 % Normal 11.0-15.0 [facility] Comment on above: Performed By: #### V AGINT #### [facility] [address] [place] [address] Dr. Neil Krishnamurthy Hematocrit (Bld) [Volume fraction] 41.1 % Normal 36.0-48.0 [facility] Comment on above: Performed By: #### V AGINT #### [facility] [address] [place] [address] Dr. Neil Krishnamurthy Hemoglobin (Bld) [Mass/Vol] 13.7 g/dL Normal 12.0-16.0 [facility] Comment on above: Performed By: #### V AGINT #### [facility] [address] [place] [address] Dr. Neil Krishnamurthy IG # 0.03 10e3/ul Normal 0.00-0.03 [facility] Comment on above: Performed By: #### V AGINT #### [facility] [address] [place] [address] Dr. Neil Krishnamurthy IG % 0.4 % Normal 0.0-0.5 [facility] Comment on above: Performed By: #### V AGINT #### [facility] [address] [place] [address] Dr. Neil Krishnamurthy LYMPH # 2.8 103/ul Normal 1.2-3.8 [facility] Comment on above: Performed By: #### V AGINT #### [facility] [address] [place] [address] Dr. Neil Krishnamurthy Lymphocytes/100 WBC (Bld) 32.9 % Normal 20.5-60.0 [facility] Comment on above: Performed By: #### V AGINT #### [facility] [address] [place] [address] Dr. Neil Krishnamurthy MANUAL DIFF REQ NO Normal [facility] Comment on above: Performed By: #### V AGINT #### [facility] [address] [place] [address] Dr. Neil Krishnamurthy MCH (RBC) [Entitic mass] 30.4 pg Normal 26.7-34.0 [facility] Comment on above: Performed By: #### V AGINT #### [facility] [address] [place] [address] Dr. Neil Krishnamurthy MCHC (RBC) [Mass/Vol] 33.3 g/dL Normal 29.9-35.2 [facility] Comment on above: Performed By: #### V AGINT #### [facility] [address] [place] [address] Dr. Neil Krishnamurthy MCV (RBC) [Entitic vol] 91.3 fL Normal 81.0-99.0 [facility] Comment on above: Performed By: #### V AGINT #### [facility] [address] [place] [address] Dr. Neil Krishnamurthy MONO # 0.7 103/ul Normal 0.3-0.8 [facility] Comment on above: Performed By: #### V AGINT #### [facility] [address] [place] [address] Dr. Neil Krishnamurthy Monocytes/100 WBC (Bld) 8.0 % Normal 1.7-12.0 [facility] Comment on above: Performed By: #### V AGINT #### [facility] [address] [place] [address] Dr. Neil Krishnamurthy NEUT # 4.8 103/ul Normal 1.4-6.5 [facility] Comment on above: Performed By: #### V AGINT #### [facility] [address] [place] [address] Dr. Neil Krishnamurthy Neutrophils/100 WBC (Bld) 56.3 % Normal 43.0-75.0 [facility] Comment on above: Performed By: #### V AGINT #### [facility] [address] [place] [address] Dr. Neil Krishnamurthy Platelet mean volume (Bld) [Entitic vol] 11.0 fL Normal 9.5-13.5 [facility] Comment on above: Performed By: #### V AGINT #### [facility] [address] [place] [address] Dr. Neil Krishnamurthy PLT 242 103/ul Normal 150-450 [facility] Comment on above: Performed By: #### V AGINT #### [facility] [address] [place] [address] Dr. Neil Krishnamurthy RBC 4.50 106/ul Normal 4.20-5.40 [facility] Comment on above: Performed By: #### V AGINT #### [facility] [address] [place] [address] Dr. Neil Krishnamurthy WBC 8.5 103/ul Normal 4.0-11.0 [facility] Comment on above: Performed By: #### V AGINT #### [facility] [address] [place] [address] Dr. Neil Krishnamurthy GLYCOHEMOGLOBIN A1Con 2021 ADA RECOMMENDATION SEE BELOW Normal [facility] Comment on above: Result Comment: ADA RECOMMENDED LIMIT 4.0 - 6.0 ADA THERAPEUTIC TARGET < 7.0 ACTION SUGGESTED > 7.0 Performed By: #### V AGINT #### [facility] [address] [place] [address] Dr. Neil Krishnamurthy Glucose [Mass/Vol] 97 mg/dL Normal [facility] Comment on above: Performed By: #### V AGINT #### [facility] [address] [place] [address] Dr. Neil Krishnamurthy HbA1c (Bld) [Mass fraction] 5.0 % Normal 4.5-6.2 [facility] Comment on above: Performed By: #### V AGINT #### [facility] [address] [place] [address] Dr. Neil Krishnamurthy LIPID PROFILEon 07-13-2022 CHOL-HDL RATIO NORM SEE BELOW Normal [facility] Comment on above: Result Comment: 3.3 - 4.4 LOW RISK 4.4 - 7.1 AVERAGE RISK 7.1 - 11.0 MODERATE RISK >11.0 HIGH RISK Performed By: #### O X24HR #### [facility] [address] [address] [address] Neil Krishnamurthy Cholesterol [Mass/Vol] 157 mg/dL Normal <=200 [facility] Comment on above: Performed By: #### O X24HR #### [facility] [address] [address] [address] Neil Krishnamurthy Cholesterol in HDL [Mass/Vol] 50 mg/dL Normal 40-60 [facility] Comment on above: Performed By: #### O X24HR #### [facility] [address] [address] [address] Neil Krishnamurthy Cholesterol in LDL [Mass/Vol] 79.4 mg/dL Normal [facility] Comment on above: Performed By: #### O X24HR #### [facility] [address] [address] [address] Neil Krishnamurthy Cholesterol.total/C holesterol in HDL [Mass ratio] 3.1 {ratio} Normal [facility] Comment on above: Performed By: #### O X24HR #### [facility] [address] [address] [address] Neil Krishnamurthy HDL NORMAL > or = 60 mg/dl - LO W CARDIOVASCULAR RISK <40 mg/dl - HIGH CARDIOVASCULAR RISK Normal [facility] Comment on above: Performed By: #### O X24HR #### [facility] [address] [address] [address] Neil Krishnamurthy LDL CALC NORMAL SEE BELOW Normal [facility] Comment on above: Result Comment: <100 mg/dl OPTIMAL 100 - 129 mg/dl NEAR OR ABOVE OPTIMAL 130 - 159 mg/dl BORDERLINE HIGH 160 - 189 mg/dl HIGH >190 mg/dl VERY HIGH Performed By: #### O X24HR #### [facility] [address] [place] [address] Dr. Neil Krishnamurthy Triglyceride [Mass/Vol] 138 mg/dL Normal <=150 [facility] Comment on above: Performed By: #### O X24HR #### [facility] [address] [place] [address] Dr. Neil Krishnamurthy VLDL CALC 27.6 mg/dL Normal [facility] Comment on above: Performed By: #### O X24HR #### [facility] [address] [address] [address] Neil Krishnamurthy LIVER PROFILEon 07-13-2022 Albumin [Mass/Vol] 3.5 g/dL Normal 3.4-5.0 [facility] Comment on above: Performed By: #### O X24HR #### [facility] [address] [place] [address] Dr. Neil Krishnamurthy Albumin/Globulin [Mass ratio] 1.0 {ratio} Normal [facility] Comment on above: Performed By: #### O X24HR #### [facility] [address] [place] [address] Dr. Neil Krishnamurthy ALP [Catalytic activity/Vol] 83 U/L Normal 46-116 [facility] Comment on above: Performed By: #### O X24HR #### [facility] [address] [place] [address] Dr. Neil Krishnamurthy ALT [Catalytic activity/Vol] 19 U/L Normal 14-59 [facility] Comment on above: Performed By: #### O X24HR #### [facility] [address] [place] [address] Dr. Neil Krishnamurthy AST [Catalytic activity/Vol] 15 U/L Normal 15-37 [facility] Comment on above: Performed By: #### O X24HR #### [facility] [address] [place] [address] Dr. Neil Krishnamurthy BILI, CONJUGATED 0.1 mg/dL Normal 0.0-0.2 [facility] Comment on above: Performed By: #### O X24HR #### [facility] [address] [place] [address] Dr. Neil Krishnamurthy Bilirubin [Mass/Vol] 0.6 mg/dL Normal 0.2-1.0 [facility] Comment on above: Performed By: #### O X24HR #### [facility] [address] [place] [place] [address] Dr. Neil Krishnamurthy Globulin (S) [Mass/Vol] 3.5 g/dL Normal [facility] Comment on above: Performed By: #### O X24HR #### [facility] [address] [place] [address] Dr. Neil Krishnamurthy Protein [Mass/Vol] 7.0 g/dL Normal 6.4-8.2 [facility] Comment on above: Performed By: #### O X24HR #### [facility] [address] [place] [address] Dr. Neil Krishnamurthy PROF CHEM 8 (BAS METB)on Anion gap [Moles/Vol] 10.8 mmol/L Normal [facility] Comment on above: Performed By: #### O X24HR #### [facility] [address] [place] [address] Dr. Neil Krishnamurthy Calcium [Mass/Vol] 8.2 mg/dL Critically low 8.5-10.1 [facility] Comment on above: Performed By: #### O X24HR #### [facility] [address] [place] [address] Dr. Neil Krishnamurthy Chloride [Moles/Vol] 105 mmol/L Normal 98-107 [facility] Comment on above: Performed By: #### O X24HR #### [facility] [address] [place] [address] Dr. Neil Krishnamurthy CO2 [Moles/Vol] 24.5 mmol/L Normal 21.0-32.0 [facility] Comment on above: Performed By: #### O X24HR #### [facility] [address] [place] [address] Dr. Neil Krishnamurthy Creatinine [Mass/Vol] 0.74 mg/dL Normal 0.55-1.02 [facility] Comment on above: Performed By: #### O X24HR #### [facility] [address] [place] [address] Dr. Neil Krishnamurthy EGFR-AF CHADIAN >60 Normal >=60 [facility] Comment on above: Performed By: #### O X24HR #### [facility] [address] [address] [address] Neil Krishnamurthy EGFR-NON AF CHADIAN >60 Normal >=60 [facility] Comment on above: Performed By: #### O X24HR #### [facility] [address] [address] [address] Neil Krishnamurthy Glucose [Mass/Vol] 106 mg/dL Normal 74-106 [facility] Comment on above: Performed By: #### O X24HR #### [facility] [address] [address] [address] Neil Krishnamurthy Potassium [Moles/Vol] 3.5 mmol/L Normal 3.5-5.1 [facility] Comment on above: Performed By: #### O X24HR #### [facility] [address] [address] [address] Neil Krishnamurthy Sodium [Moles/Vol] 137 mmol/L Normal 136-145 [facility] Comment on above: Performed By: #### O X24HR #### [facility] [address] [address] [address] Neil Krishnamurthy Urea nitrogen [Mass/Vol] 11.0 mg/dL Normal 7.0-18.0 [facility] Comment on above: Performed By: #### O X24HR #### [facility] [address] [place] [address] Dr. Neil Krishnamurthy Urea nitrogen/Creatinine [Mass ratio] 14.8 mg/mg Normal [facility] Comment on above: Performed By: #### O X24HR #### [facility] [address] [address] [address] Neil Krishnamurthy TSHon 07-13-2022 TSH 1.166 uIU/mL Normal 0.358-3.740 [facility] Comment on above: Performed By: #### O X24HR #### [facility] [address] [address] [address] Neil Krishnaumrthy VITAMIN D 25 OHon 07-13-2022 VIT D 25-OH 23.8 ng/mL Normal [facility] Comment on above: Performed By: #### V ITAD #### [facility] [address] [address] [address] Neil Krishnamurthy VIT D RANGES SEE BELOW Normal [facility] Comment on above: Result Comment: <20 ng/mL Vit D deficient 20 - <30 ng/mL Vit D insufficient 30 - 100 ng/mL Vit D sufficient >100 ng/mL Potential Toxicity Performed By: #### V ITAD #### [facility] [address] [address] [address] Neil Krishnamurthy MG MAMM SCREEN 3D MARKEL CADon 06-23-2022 MG MAMM SCREEN 3D MARKEL CAD Patient: LUL BRITTON Exam Date: 06/23/2022 : 1985 Gender:F Ordering : DR KATHY BARRAGAN . Admission #: [id number] Family : Order #: [id number] CLICK HERE TO VIEW EXAM RADIOLOGY REPORT [...] cervical cancer at age 31. LOCATION: [facility] BREAST COMPOSITION: Heterogeneously dense,which may obscure [...] Quezada MD on 06/23/2022 at 11:17 Normal [facility] PAP ACOG PANEL 2: 30 to 65on 06-16-2022 . . Normal [facility] Comment on above: Result Comment: Perf ormed at: WB Performed By: #### C O2, CL, BUN, CREA, URIC, K, CA, NA #### [facility] [address] [address] [address] Neil Krishnamurthy Age Gdln ACOG Testing 30-65 Normal [facility] Comment on above: Performed By: #### C O2, CL, BUN, CREA, URIC, K, CA, NA #### [facility] [address] [address] [address] Neil Krishnamurthy DIAGNOSIS: Comment Normal [facility] Comment on above: Result Comment: NEGA TIVE FOR INTRAEPITHELIAL LESION OR MALIGNANCY. Performed at: WB Performed By: #### C O2, CL, BUN, CREA, URIC, K, CA, NA #### [facility] [address] [address] [address] Neil Krishnamurthy HPV Aptima Negative Normal Negative [facility] Comment on above: Result Comment: This nucleic acid amplification test detects fourteen high-risk HPV types (16,18,31,33,35,39,45,51,52,56,58,59,66,68) without differentiation. Performed at: =G Performed By: #### C O2, CL, BUN, CREA, URIC, K, CA, NA #### [facility] [address] [address] [address] Neil Krishnamurthy Methodology: Comment Normal [facility] Comment on above: Result Comment: This liquid based ThinPrep(R) pap test was screened with the use of an image guided system. Performed at: WB Performed By: #### C O2, CL, BUN, CREA, URIC, K, CA, NA #### [facility] [address] [place] [address] Dr. Neil Krishnamurthy Note: Comment Normal [facility] Comment on above: Result Comment: The [...] BUN, CREA, URIC, K, CA, NA #### [facility] [address] [address] [address] Neil Krishnamurthy Performed by: Comment Normal [facility] Comment on above: Result Comment: Fang Song, Improvement Coordinator (ASCP) Performed at: WB Performed By: #### C O2, CL, BUN, CREA, URIC, K, CA, NA #### [facility] [address] [address] [address] Neil Krishnamurthy Specimen adequacy: Comment Normal [facility] Comment on above: Result Comment: Sati sfactory for evaluation. Endocervical and/or squamous metaplastic cells (endocervical component) are present. Performed at: WB Performed By: #### C O2, CL, BUN, CREA, URIC, K, CA, NA #### [facility] [address] [address] [address] Neil Krishnamurthy VAGINITIS/VAGINOSIS DNA PROB Jovi 06-03-2022 Rachel species Negative Normal Negative [facility] Comment on above: Performed By: #### V AGINT #### [facility] [address] [address] [address] Neil Krishnamurthy Gardnerella vaginalis Positive Abnormal Negative [facility] Comment on above: Performed By: #### V AGINT #### [facility] [address] [address] [address] Neil Krishnamurthy Trichomonas vaginalis Negative Normal Negative [facility] Comment on above: Performed By: #### V AGINT #### [facility] [address] [place] [address] Dr. Neil Krishnamurthy COVID Quick Testingon 2020 Result Positive [facility] Other XR ABDOMEN LIMITED (KUB)on XR ABDOMEN LIMITED (KUB) EXAMINATION:SUPINE VIEW(S) OF THE NWWLAYZ7007/08/2017 1:38 pmCOMPARISON:October 19, 2010HISTORY:ORDERING SYSTEM PROVIDED HISTORY: [...] by:TIMBO Menendezigned by:Raheel Morales MD07/08/17Final result Normal [facility] Vital Signs Date Time Vital Sign Value Performing Clinician Facility 07-05-2024 11:45-0400 Body height 152.4 cm Kirby Alberto MD Work Phone: [facility] 07-05-2024 11:45-0400 Body mass index (BMI) [Ratio] 44.72 kg/m2 Kirby Alberto MD Work Phone: [facility] 07-05-2024 11:45-0400 Body temperature 97.81 [degF] Kirby Alberto MD Work Phone: [facility] 07-05-2024 11:45-0400 Body weight 103.87 kg Kirby Alberto MD Work Phone: [facility] 07-05-2024 11:45-0400 Diastolic blood pressure 78 mm[Hg] Kirby Alberto MD Work Phone: [facility] 07-05-2024 11:45-0400 Heart rate 97 /min Kirby Alberto MD Work Phone: [facility] 07-05-2024 11:45-0400 Respiratory rate 20 /min Kirby Alberto MD Work Phone: [facility] 07-05-2024 11:45-0400 SaO2% (BldA) [Mass fraction] 98 % Kirby Alberto MD Work Phone: [facility] 07-05-2024 11:45-0400 Systolic blood pressure 136 mm[Hg] Kirby Alberto MD Work Phone: [facility] 09-22-2023 12:00-0500 Body height 152.4 cm Elisabeth Ma Other [facility] Other 09-22-2023 12:00-0500 Body mass index (BMI) [Ratio] 41.87 kg/m2 Elisabeth Ma Other [facility] Other 09-22-2023 12:00-0500 Body temperature 97.7 [degF] Elisabeth Ma Other [facility] Other 09-22-2023 12:00-0500 Body weight 97.25 kg Elisabeth Ma Other [facility] Other 09-22-2023 12:00-0500 Diastolic blood pressure 86 mm[Hg] Elisabeth Ma Other [facility] Other 09-22-2023 12:00-0500 Respiratory rate 18 /min Elisabeth Ma Other [facility] Other 09-22-2023 12:00-0500 SaO2% (BldA) [Mass fraction] 99 % Elisabeth Anil Other [facility] Other 09-22-2023 12:00-0500 Systolic blood pressure 124 mm[Hg] Elisabeth Ma Other [facility] Other 03-06-2023 13:50-0400 Body height 152.4 cm Leana Soler Other [facility] Other 03-06-2023 13:50-0400 Body mass index (BMI) [Ratio] 42.3 kg/m2 Leana Soler Other [facility] Other 03-06-2023 13:50-0400 Body temperature 98.2 [degF] Leana Soler Other [facility] Other 03-06-2023 13:50-0400 Body weight 98.25 kg Leana Soler Other [facility] Other 03-06-2023 13:50-0400 Diastolic blood pressure 76 mm[Hg] Leana Soler Other [facility] Other 03-06-2023 13:50-0400 Respiratory rate 18 /min Leana Khanley Other [facility] Other 03-06-2023 13:50-0400 SaO2% (BldA) [Mass fraction] 100 % Leana Soler Other [facility] Other 03-06-2023 13:50-0400 Systolic blood pressure 111 mm[Hg] Leana Soler Other [facility] Other 09-01-2022 17:15-0500 Body height 152.4 cm Jennyfer Ruiz Other [facility] Other 09-01-2022 17:15-0500 Body mass index (BMI) [Ratio] 41.98 kg/m2 Jennyfer Ruiz Other [facility] Other 09-01-2022 17:15-0500 Body temperature 98.4 [degF] Jennyfer Ruiz Other [facility] Other 09-01-2022 17:15-0500 Body weight 97.52 kg Jennyfer Ruiz Other [facility] Other 09-01-2022 17:15-0500 Respiratory rate 18 /min Jennyfer Ruiz Other [facility] Other 09-01-2022 17:15-0500 SaO2% (BldA) [Mass fraction] 99 % Jennyfer Maravillamond Other [facility] Other 04-22-2022 14:30-0400 Body height 152.4 cm Jessenia Ortiz Other [facility] Other 04-22-2022 14:30-0400 Body mass index (BMI) [Ratio] 40.42 kg/m2 Jessenia Ortiz Other [facility] Other 04-22-2022 14:30-0400 Body weight 93.9 kg Jessenia Ortiz Other [facility] Other 04-22-2022 14:30-0400 Diastolic blood pressure 89 mm[Hg] Jessenia Ortiz Other [facility] Other 04-22-2022 14:30-0400 Respiratory rate 18 /min Jesesnia Ortiz Other [facility] Other 04-22-2022 14:30-0400 SaO2% (BldA) [Mass fraction] 100 % Jessenia Ortiz Other [facility] Other 04-22-2022 14:30-0400 Systolic blood pressure 116 mm[Hg] Jessenia Ortiz Other [facility] Other 07-22-2021 11:00-0400 Body height 152.4 cm Jennyfer Sara Other [facility] Other 07-22-2021 11:00-0400 Body mass index (BMI) [Ratio] 38.08 kg/m2 Jennyfer Sara Other [facility] Other 07-22-2021 11:00-0400 Body temperature 96.2 [degF] Jennyfer Ruiz Other [facility] Other 07-22-2021 11:00-0400 Body weight 88.45 kg Jennyfer Ruiz Other [facility] Other 07-22-2021 11:00-0400 Respiratory rate 18 /min Jennyfer Ruiz Other [facility] Other 07-22-2021 11:00-0400 SaO2% (BldA) [Mass fraction] 99 % Jennyfer Ruiz Other [facility] Other Encounters Encounter Date Encounter Type Care [...] 06-18-2024 End: 06-18-2024 [facility] Start: 06-05-2024 End: 06-05-2024 ambulatory KIRBY ALBERTO Not Available Start: 06-04-2024 End: 06-04-2024 ambulatory Joanne Cameron MD Facility:[facility] Start: 05-14-2024 End: 05-14-2024 ambulatory [facility] Ambulatory Start: 05-07-2024 End: 05-07-2024 ambulatory [facility] Start: 04-16-2024 End: 04-16-2024 ambulatory Joanne Cameron MD Facility: [place] Start: 03-26-2024 End: 03-26-2024 ambulatory KIRBY NADERER Not Available Start: 03-15-2024 End: 03-15-2024 ambulatory [facility] Ambulatory Start: 02-21-2024 End: 02-21-2024 ambulatory YOVANI H TIMMIS Not Available Start: 02-17-2024 End: 02-17-2024 ambulatory Yovani H Timmis Facility:[facility] Start: 02-17-2024 End: 02-17-2024 Patient encounter procedure Yovani Gustavo Mottamis [facility] Start: 01-16-2024 End: 01-16-2024 ambulatory YOVANI H TIMMIS Not Available Start: 12-20-2023 End: 12-20-2023 ambulatory KIRBY NADERER Not Available Start: 10-04-2023 End: 10-04-2023 ambulatory KIRBY NADERER Not Available Start: 09-22-2023 End: 09-22-2023 ambulatory Elisabeth Ma Other [facility] Other Start: 09-22-2023 Office outpatient vi sit 15 minutes Elisabeth Ma [facility] Start: 09-05-2023 End: 09-05-2023 ambulatory Joanne [place] MD Facility:[facility] [place] Start: 08-15-2023 End: 08-15-2023 ambulatory Joanne Cameron MD Facility:[facility] [place] Start: 07-05-2023 End: 07-05-2023 Patient encounter procedure CHARLOTTE SCALES [facility] Start: 03-06-2023 End: 03-06-2023 Patient encounter procedure OFFICE TECHNICIAN Leana Karlene Work Phone: [facility] Work Phone: Start: 03-06-2023 End: 03-06-2023 ambulatory Leana Kristel Karlene [facility] Other Start: 03-06-2023 Office outpatient vi sit [...] encounter procedure Anna JERRY [facility] Start: 10-02-2022 End: 10-03-[address] ANNA JERRY . Facility:[facility] Start: 09-01-2022 End: 09-01-2022 ambulatory Jennyfer Ruiz Other [facility] Other Start: 09-01-2022 Office outpatient vi sit 15 minutes Jennyfer Ruiz [facility] Start: 08-27-2022 End: 08-28-[address] RIC QUEZADA Facility:[facility] Start: 07-18-2022 Encounter for genera l adult medical examination without abnormal findings DR KIRBY ALBERTO [facility] Start: 07-13-2022 End: [address] [...] 04-22-2022 End: 04-22-2022 ambulatory Jessenia Ortiz Other [facility] Other Start: 04-22-2022 Office outpatient vi sit 15 minutes Jessenia Ortiz [facility] Start: 07-22-2021 End: 07-22-2021 ambulatory Jennyfer Ruzi Other [facility] Other Start: 07-22-2021 Office outpatient vi sit 15 minutes Jennyfer Ruiz [facility] Start: 07-08-2017 End: 07-09-2017 Ambulatory MINGO SCHUMACHER [facility] Procedures Date Procedure Procedure Detail Performing Clinician Start: 03-06-2023 X-ray of left foot OFFICE TECHNICIAN Leana Soler Work Phone: Start: 07-08-2017 X-ray [...] Visit [facility] [address] [place] [address] Kirby Alberto MD [address] [place] [phone] [facility] Start: 07-30-2024 ambulatory Ambulatory Facility:[facility] Start: 07-05-2024 End: 07-05-2024 Patient encounter procedure 07/05/2024 11:45 AM EDT Office Visit [facility] [address] [place] [id number] Kirby Alberto MD [address] [place] [id number] Arrived [facility] Comment on above: Arrived Start: 05-20-2024 Influenza vaccination Influenza Vacc ine (#1) [facility] Start: 2016 Screening for malign ant neoplasm of cervix [facility] Start: 2007 Screening for malign ant neoplasm of cervix Pap Smear [facility] Immunizations Immunization Date Immunization Notes Care Provider [facility] 05-11-2010 tetanus toxoid, redu jose juan diphtheria toxoid, and acellular pertussis vaccine, adsorbed Anna DWNLD [facility] 01-10-2007 varicella virus vaccine Patr jorje JERRY [facility] 12-07-2006 varicella virus vaccine Patr icchristiano JERRY [facility] 04-25-2006 hepatitis B vaccine, pediatric or pediatric/adolescent dosage Anna JERRY [facility] 12-20-2005 hepatitis B vaccine, pediatric or pediatric/adolescent dosage Anna DWNLD [facility] 11-15-2005 hepatitis B vaccine, pediatric or pediatric/adolescent dosage Anna JERRY [facility] 03-10-1999 diphtheria, tetanus toxoids and acellular pertussis vaccine, unspecified formulation Kirby Alberto MD Work Phone: [facility] 03-10-1999 DTaP, unspecified formulation Anna JERRY [facility] 03-10-1999 measles, mumps and rubella virus vaccine Anna JERRY [facility] Payers Date Payer Category Payer Self-pay 2022 Medicaid [id number] 2022 Unknown 2020 Private Health Insurance [id number] 2017 Unknown [id number] 2.1 [id number] 1986 Unknown [id number] 2.16.84 0.1.338547.3.579.2.593 1986 Unknown [id number] 2.16.84 0.1.688942.3.579.2.593 1986 Unknown [id number] 2.16.84 0.1.220707.3.579.2.593 1986 Unknown [id number] 2.16.84 0.1.897804.3.579.2.593 1986 Unknown [id number] 2.16.84 0.1.997648.3.579.2.593 1986 Unknown [id number] 2.16.84 0.1.421114.3.579.2.593 1986 Unknown [id number] 2.16.84 0.1.799397.3.579.2.593 1986 Unknown [id number] 2.16.84 0.1.909673.3.579.2.593 1986 Unknown [id number] 2.16.84 0.1.882772.3.579.2.593 1986 Unknown [id number] 2.16.84 0.1.986543.3.579.2.593 1986 Unknown [id number] 2.16.84 0.1.646958.3.579.2.593 1986 Unknown [id number] 2.16.84 0.1.098582.3.579.2.1259 1986 Unknown [id number] 2.16.84 0.1.430530.3.579.2.1259 1986 Unknown [id number] 2.16.84 0.1.413747.3.579.2.1259 1986 Unknown [id number] 2.16.84 0.1.839304.3.579.2.1259 1986 Unknown [id number] 2.16.84 0.1.511070.3.579.2.1259 1986 Unknown [id number] 2.16.8 40.1.094457.3.579.2.1244 1986 Unknown [id number] 2.16.8 40.1.515194.3.579.2.1244 1986 Unknown [id number] 2.16.8 40.1.431417.3.579.2.1245 1986 Unknown [id number] 2.16. 840.1.814084.3.579.2.196 1986 Unknown [id number] 2.16. 840.1.169519.3.579.2.196 1986 Unknown [id number] 2.16. 840.1.368301.3.579.2.196 1986 Unknown [id number] 2.16. 840.1.899945.3.579.2.196 1986 Unknown [id number] 2.16. 840.1.822135.3.579.2.196 1986 Unknown [id number] 2.16.84 0.1.215743.3.579.2.1259 1986 Unknown [id number] 2.16.84 0.1.523441.3.579.2.1259 1986 Unknown [id number] 2.16.8 40.1.196444.3.579.2.727 1986 Unknown [id number] 2.16.8 40.1.363381.3.579.2.727 1959 Unknown [id number] 1959 Unknown [id number] 2.1 6.840.1.007162.19 1959 Unknown [id number] Unknown [id number] 2.16.8 40.1.001359.19 Unknown [id number] 2.16.8 40.1.988196.3.579.2.531 Social History Date Type Detail Facility Unknown if ever smoked [facility] Other Start: 09-27-2023 End: 10-04-2023 Sex Assigned At [facility] Start: 10-04-2022 End: 02-08-2023 Tobacco smoking status Never smoked tobacco (finding) [facility] Start: 1985 Sex Assigned At Female [facility] Start: 10-04-2023 Tobacco smoking status MEIS Ex-smoker [facility] History of tobacco use [...] 07-05-2023 Functional Status N/A [facility] 10-04-2022 Functional Status N/A [facility] Clinical Notes 07-22-2021 to 07-05-2024 Kirby Alberto [...] 50 MG tablet documented in this encounter [facility] 09-22-2023 Evaluation note Encounter Date Diagnosis Assessment Notes Sep, Dysuria (ICD-10 - R30.0) Discussed dipstick findings with patient. Advised patient that there is no evidence of acute UTI. Advised that this is likely related to stone. Recommended ER for further evaluation and workup. Patient verbalizes understanding and is agreeable with treatment plan [facility] Other 09-25-2023 Hospital Discharge instructions Patient Education [...] include: ?8 oz (237 mL) of milk, xrkbjeo-jkrsjxvmcalh-peqnb milk, and calcium- fortifiedfruit juice. Calcium-fortified means [...] ?Spinach (cooked), rhubarb, beets, sweet potatoes, and [place] chard. ?Peanuts. ?Potato chips, kosovan fries, and baked potatoes with skin on. ?Nuts and nut products. ?Chocolate. If you regularly take a diuretic medicine, make sure to eat at least 1 or 2 servings of fruits or vegetables that are high in potassium each day. These include: ?Avocado. ?Banana. ?Boundary, prune, carrot, or tomato juice. ?Baked potato. [...] magnesium, fish oil, or vitamin B6. Take fbcl-ajb-utddcws and prescription medicines only as told by [...] Casseroles. Pizza. Lasagna. Frozen meals. Potato chips. Kyrgyz fries. The items listed above may not [...] provider. Document Revised: 05/17/2022 Document Reviewed: 05/17/2022 [employer] Patient Education 2022 [employer]. Follow Up Care 02/08/2023 16:17:30 With:YORDY WILLSON, CHARLOTTE Lam, URL Address: [address] [place] [phone] When: Unknown Comments:2 yr w/ [facility] and [facility] 06-18-2023 Evaluation note* Encounter Date Diagnosis [...] fever. Patient verbalized understanding of treatment plan. [facility] Other 01-16-2023 Hospital Discharge instructions Patient Education [...] include: ?Spinach. ?Rhubarb. ?Beets. ?Potato chips and kosovan fries. ?Nuts. If you regularly take a diuretic medicine, make sure to eat at least 1 2 fruits or vegetables high in potassium each day. These include: ?Avocado. ?Banana. ?Boundary, prune, carrot, or tomato juice. ?Baked potato. [...] Casseroles. Pizza. Lasagna. Frozen meals. Potato chips. Kyrgyz fries. Summary You can reduce your risk [...] 12/31/2011 Document Revised: 12/26/2019 Document Reviewed: 08/16/2017 [employer] Patient Education 2020 [employer]. Follow Up Care 08/30/2022 15:20:43 With:CLARITZA JOHNSTNO, Anna Lorenzana, URL Address: [facility] [address] , [place] [address]- When: Unknown [facility] 12-14-2022 Evaluation note* Encounter Date Diagnosis [...] needed for cough or shortness of breath [facility] Other 08-04-2022 Evaluation note* Encounter Date Diagnosis [...] care provider if no improvement of symptoms. [facility] Other 11-03-2021 Evaluation note* Encounter Date Diagnosis [...] Patient care instructions given in writting by [facility] Care At Home document. [facility] Other Evaluation + Plan note Future Appointments Appointment Date:01/10/2023 03:15:00 PM Scheduled Provider:Anna JERRY MD Location:[facility] Appointment Type:URO Office Visit Diagnostic Tests Pending * Creatinine 10/04/22 [facility] evaluation + Plan note Future Appointments Appointment Date:07/10/2024 02:00:00 PM Scheduled Provider:CHARLOTTE SCALES PA-C Location:[facility] Appointment Type:URO Office Visit [facility] evalphatgw noteNo assessment information available [facility] Work Phone: evalubidqi note* Diagnosis Migraine without aura and without [...] wisdom teeth extract Hospitalization History see above [facility] Other History general Narrative - Reported* Type Description Date Medical History kidney stones Medical History anxiety Medical History migraine headache Surgical History C section Surgical History appendectomy Surgical History cholecystectomy Surgical History hernia repair Surgical History lithotripsy Surgical History wisdom teeth extract Hospitalization History see above [facility] Other History general Narrative - Reported* Type Description Date Medical History kidney stones Medical History anxiety Medical History migraine headache Surgical History C section Surgical History appendectomy Surgical History cholecystectomy Surgical History hernia repair Surgical History lithotripsy Surgical History wisdom teeth extract Surgical History cortisone shots in back Hospitalization History see above [facility] Other Hospital course Narrative No data available for this section [facility] Dis[facility] No data available for this section [facility] No data available for this section [facility] [facility] Summary Purpose Family History No Family [...] section and content) DATE CREATED AUTHOR 03/14/2018 [facility] DATE CREATED AUTHOR AUTHOR'S ORGANIZ ATION 01/19/2023 [facility] DATE CREATED AUTHOR AUTHOR'S ORGANIZ ATION 03/19/2023 [facility] DATE CREATED AUTHOR AUTHOR'S ORGANIZ ATION 04/03/2024 [facility] EPIC DATE CREATED AUTHOR AUTHOR'S ORGANIZ ATION 05/15/2024 [facility] DATE CREATED AUTHOR AUTHOR'S ORGANIZ ATION 06/21/2024 [facility] DATE CREATED AUTHOR AUTHOR'S ORGANIZ ATION 06/22/2024 [facility] DATE CREATED AUTHOR AUTHOR'S ORGANIZ ATION 07/08/2024 [facility] EPIC DATE CREATED AUTHOR AUTHOR'S ORGANIZ ATION 07/16/2024 [facility] REASON FOR VISIT (unrecogniz ed section and content) Reason Comments Follow-up Chest cold/cough Patient Care team informatio n (unrecognized section and content) Team Status: Inactive Member Role Status Dates Leana Soler , KEN Attending Provider Active [employer] Relationship Specialty Start Date End Date Kirby Alberto MD [address] [place] [address] PCP - General Family Medicine 04/13/23 Mary Thayer MD [address] [place] [address] Family Medicine 04/13/23 [employer] Relationship Specialty Start Date End Date Kirby Alberto MD [address] [place] [address] PCP - General Family Medicine 04/13/23 Mary Thayer MD [address] [place], [place] [id number] Family Medicine 04/13/23 Goals (unrecognized section and [...] BE BASED ON THE PRIMARY CLINICAL RECORDS. [employer] [facility]. provides no warranty or guarantee of the accuracy or completeness of information in this document.
== END 2024-07-19 15:34 | disposition home or self-care (01) ==
LOC: RAD 15:35
PROVIDERS: PCP Family Medicine; Visit Provider Nurse Practitioner
DX: M54.50 Low back pain, unspecified (principal); G89.29 Other chronic pain; M46.1 Sacroiliitis, not elsewhere classified; M25.561 Pain in right knee; M25.562 Pain in left knee
CPT/HCPCS: 72110; 72202; 73564

== ENCOUNTER 2024-07-24 15:20 | Outpatient (RCR) | payer OTHER, SELFPAY | END 2024-08-23 10:03 | disposition home or self-care (01) | LOC: PT 15:20 | PROVIDERS: PCP Family Medicine; Visit Provider Nurse Practitioner | DX: M25.561 Pain in right knee (principal); M25.562 Pain in left knee; M54.50 Low back pain, unspecified | CPT/HCPCS: 97110; 97113; 97162 ==

== ENCOUNTER 2024-08-23 08:41 | Outpatient (OUT) | payer OTHER, SELFPAY ==
--- NOTE | 2024-08-23 08:49 | CT_ITS ---
[address] [address] Patient Name: LUL BRITTON MRN: [id number] date: 1985 Sex: F Assigned Patient Location: CT Current Patient Location: Accession/Order Number: [id number] Exam Date: 08/23/2024 09:13 Report Date: 08/24/2024 04:45 At the request of: ANNA JERRY Procedure: CT abdomen pelvis wo/w con EXAMINATION: CT abdomen pelvis wo/w con HISTORY: Kidney Stone, Flank Pain COMPARISON: No relevant comparison available. TECHNIQUE: Axial, Coronal, and Sagittal images were obtained without and/or with IV contrast as indicated by examination type. Dose reduction techniques were achieved by using automated exposure control and/or adjustment of mA and/or kV according to patient size and/or use of iterative reconstruction technique. FINDINGS: LUNG BASES: No visible pulmonary or pleural disease. LIVER: No enlargement, atrophy, suspicious density, or significant focal lesion. BILIARY: No dilatation or calcification. PANCREAS: No lesion, fluid collection, or abnormal duct dilatation. SPLEEN: No enlargement or focal lesion. ADRENALS: No mass or enlargement. KIDNEYS: Numerous nonobstructing calcifications bilaterally, largest is 7 mm. No ureteral stones. Small cysts favoring benign etiology within left kidney BOWEL/MESENTERY: No bowel wall thickening, obstruction, or mass. AORTA/VASCULAR: No aneurysm or dissection. RETROPERITONEUM: No mass or adenopathy. LYMPH NODES: No adenopathy. URINARY BLADDER: No visible focal wall thickening, lesion, or calculus. PELVIC ORGANS: No visible mass. Pelvic organs appropriate for patient age. ABDOMINAL WALL: No mass or hernia. BONES: No bony lesion or fracture. OTHER: Negative. CT/CT abdomen pelvis wo/w con IMPRESSION: 1. Bilateral nonobstructing nephrolithiasis. No acute findings. Electronically authenticated by: CHELY DALEY Date: 08/24/2024 04:45
--- OUTSIDE RECORDS SUMMARY | 2024-08-23 08:58 | XMS_ITS | CCD ---
Author Organization [facility] Care Team Providers Care Rn Compliance Name Role Phone WINSOME, MINGO S Unavailable [...] ALBERTO Attending Unavailable KIRBY ALBERTO Attending Unavailable YOVANI MORALES Attending Unavailable KIRBY ALBERTO Referring Unavailable YOVANI MORALES H Attending Unavailable KIRBY ALBERTO Attending Unavailable GIAN NEGRETE Attending Unavailable SALGORGE BEAVER Attending Unavailable CADEN, GIAN C Admitting Unavailable CADEN, GIAN C Attending Unavailable Gigarret JOHNSTON, Andrius Marshall Attending Unavailable Giedraitis , Andrius Vytautas Attending Unavailable Gilalitharaitis , Andrius Vytautas Attending Unavailable Giedraitis , Andrius Vytautas Attending Unavailable Giedraitis , Andrius Vytautas Attending Unavailable Kirby Alberto MD Primary Care Provider Flaca JOHNSTON, Mary Thomas Unavailable KIRBY ALBERTO Attending Unavailable KIRBY ALBERTO Attending Unavailable Anna JERRY Attending Unavailable Anna JERRY Attending Unavailable TimmisYovani H Attending Unavailable Timmis, Yovani H Referring Unavailable Timmis, Yovani H Admitting Unavailable Allergies Allergy Classification Reported Allergen(s) Allergy Type Date of Onset Reaction(s) Facility Penicillins (antibiotic) (1 source) Penicillin G; Translations: [penicillin G benzathine] Drug Allergy Eruption of skin (disorder) [facility] (9 sources) Penicillin G Benzathine; Translations: [Penicillin G] Drug allergy rash, Eruption of skin (disorder) [facility] (1 source) Penicillin Drug Allergy [facility] (6 sources) Penicillins; Translations: [PENICILLINS] Propensity to adverse reactions to drug (disorder) Hives, [facility] Repository Medications Current Medications Medication Drug Class(es) Dates Sig (Normalized) Sig (Original) acetaminophen 500 mg oral tablet (1 source) take 1 tablet by mouth every six hours Tylenol Extra Strength 500 MG 1 tablet as needed Orally every 6 hrs Active acetaminophen 325 mg / butalbital 50 mg / caffeine 40 mg oral tablet (5 sources) Barbiturate, Central Nervous System Stimulant, Methylxanthine Start: 07-30-2024 APAP/butalbital/ caffeine 325 mg-50 mg-40 mg Tab 1 tab(s), Refill(s) 0 Start Date: 07/30/24 Status: Ordered Start: 02-17-2024 take 1 tablet by mouth four times daily as needed for headache pmnsrnbaot-ppbpdlmfnnurk-vgdhufsz 50-325 -40 MG tablet Indications: Chronic migraine without aura without status migrainosus, not intractable (CMS/HCC) Take 1 tablet by mouth 4 (four) times a day as needed for headaches 60 tablet 2 02/17/2024 Active amitriptyline hydrochloride 25 mg oral tablet (5 sources) Tricyclic Antidepressant Start: 04-30-2024 amitriptyline 25 mg Tab 25 mg = 1 tab(s), Refills(s) 0 Start Date: 07/30/24 Status: Ordered Amphetamine / Dextroamphetamine (1 source) Central Nervous System Stimulant Adderall Active 24 hr amphetamine aspartate 5 mg / amphetamine sulfate 5 mg / dextroamphetamine saccharate 5 mg / dextroamphetamine sulfate 5 mg extended release oral capsule (6 sources) Central Nervous System Stimulant Start: 07-30-2024 Adderall 40 mg, Oral, Refill(s) 0 Start Date: 07/30/24 Status: Ordered Start: 06-05-2024 End: 08-02-2024 take 1 capsule by mouth every twenty-four hours in the morning amphetamine-dextroamphetamine XR (Addera ll XR) 20 MG 24 hr capsule Indications: Obstructive sleep apnea (adult) (pediatric) Take 1 capsule (20 mg) by mouth in the morning. Do not crush or chew.. 60 capsule 08/02/2024 Active baclofen 10 mg oral tablet (4 sources) gamma-Aminobutyric Acid-ergic Agonist baclofen (Lioresal) 10 MG tablet Take by mouth 3 (three) times a day Active caffeine 200 mg oral tablet (1 source) Central Nervous System Stimulant, Methylxanthine Star t: 07-20 24 caffeine 200 mg, Oral, Refills(s) 0 Start Date: 07/30/24 Status: Ordered cetirizine hydrochloride 10 mg oral tablet (2 sources) Histamine-1 Receptor Antagonist take 1 tablet by mouth every twenty-four hours ZyrTEC Allergy 10 MG 1 tablet Orally Once a day Active 12 hr cetirizine hydrochloride 5 mg / pseudoephedrine hydrochloride 120 mg extended release oral tablet (4 sources) alpha-Adrenergic Agonist, Histamine-1 Receptor Antagonist Star t: 05-08 End: 05-08 25 take 1 tablet by mouth once in the morning, then take 1 tablet by mouth every twelve hours at bedtime cetirizine-pseudoephedr ine (ZyrTEC-D) 5-120 MG 12 hr tablet Indications: Chronic pansinusitis Take 1 tablet by mouth in the morning and 1 tablet before bedtime. 60 tablet 03/26/2024 03/26/2025 Active cholecalciferol 0.05 mg oral tablet (4 sources) Vitamin D Star t: 06-19 24 take 1 tablet by mouth once daily cholecalciferol (Vitamin D-3) 50 MCG (1999 UT) tablet Indications: Vitamin D deficiency, unspecified TAKE 1 TABLET BY MOUTH DAILY 90 tablet 3 07/02/2024 Active clarithromycin 500 mg oral tablet (1 source) Macrolide Antimicrobial Star t: 01-06 22 take 1 tablet by mouth every twelve hours Clarithromycin 500 MG 1 tablet Orally every 12 hrs for 10 day(s) Apr, Active etodolac 400 mg oral tablet (5 sources) Nonsteroidal Anti-inflammatory Drug Star t: 01-19 24 Lodine 400 mg oral tablet 400 mg = 1 tab(s), Oral, Refills(s) 0 Start Date: 07/30/24 Status: Ordered furosemide 40 mg oral tablet (4 sources) Loop Diuretic Star t: 02-18 take 1 tablet by mouth every twenty-four hours as needed furosemide (Lasix) 40 MG tablet Take 40 mg by mouth Daily as needed 03/08/2023 Active hydroCHLOROthiazide 12.5 mg oral capsule (4 sources) Thiazide Diuretic Star t: 07-20 take 1 capsule by mouth every other day hydrochlorothiazide 12.5 mg Cap 12.5 mg = 1 cap(s), Oral, Every other day, # 15 cap(s), Refills(s) 11, Pharmacy: [id number], 153, cm, 07/30/24 16:03:00 EST, Height/Length Dosing, 98, kg, 07/30/24 16:03:00 EST, Weight Dosing Start Date: 07/30/24 Status: Ordered hydroCHLOROthiaz hua Not-Taking/PRN hydroCHLOROthiaz hua Not-Taking hydroCHLOROthiaz hua Active levoFLOXacin 750 mg oral tablet (2 sources) Quinolone Antimicrobial Start: 07-05-2024 End: 07-12-2024 take 1 tablet by mouth once daily levoFLOXacin (Levaquin) 750 MG tablet Indications: Acute bronchitis due to other specified organisms Take 1 tablet (750 mg) by mouth Daily for 7 days 7 tablet 07/05/2024 07/12/2024 Active methylPREDNISolone 4 mg oral tablet (1 source) Corticosteroid Start: 04-22-2022 methylPREDNISolone 4 MG as directed Orally Once a day for 6 days Apr, Active montelukast 10 mg oral tablet (2 sources) Leukotriene Receptor Antagonist Start: 02-08-2023 montelukast 10 mg Tab Refills(s) 0 Start Date: 02/08/23 Status: Ordered PARoxetine hydrochloride 30 mg oral tablet (11 sources) Serotonin Reuptake Inhibitor Start: 12-09-2023 End: 12-08-2024 take 1 tablet by mouth in the [...] a day for 5 day(s) Aug, Not-Taking/PRN Thiamine (1 source) Start: 07-30-2024 thiamine 100 m g, Refills(s) 0 Start Date: 07/30/24 Status: Ordered topiramate 25 mg oral tablet (6 sources) [...] as needed Orally every 6 hrs Active vitamin B12 (1 source) Vitamin B12 Start: 07-30-2024 Vitamin B12 See Instructions, Refills(s) 0 Start Date: 07/30/24 Status: Ordered Vitamin D (3 sources) Vitamin D Active Vitamin D3 2000 intl units oral tablet (4 sources) Start: 10-04-2022 Vitamin D3 2000 intl [...] 2 tablets Orally Once a day Not-Taking/PRN [id number] 60 actuat albuterol 0.09 mg/actuat metered dose [...] 4 times a day prn Aug, Not-Taking polymyxin b 21214 unt/ml / trimethoprim 1 mg/ml ophthalmic solution (1 source) Dihydrofolate Reductase Inhibitor Antibacterial, Polymyxin-class Antibacterial Start: 02-01-2023 take 1 drop(s) into the eye(s) every three hours Polytrim 43714-4.1 UNIT/ML 1 drop into affected eye Ophthalmic every 3 hours while awake for January, Not-Taking Polytrim 81244-8.1 UNIT/ML (1 source) Start: 02-01-2023 take 1 drop(s) into the eye(s) every three hours as needed Polytrim 54355-0.1 UNIT/ML 1 drop into affected eye Ophthalmic every 3 hours while awake for January, Not-Taking/PRN Problems Active Problems Problem Classification Problem Date Documented Date Episodic/Chronic Acute bronchitis (5 sources) Acute infective bronchitis; Translations: [Acute bronchitis due to other specified organisms] Onset: 07-05-2024 07-05-2024 Episodic Anxiety disorders (4 sources) Generalized anxiety disorder; Translations: [Generalized anxiety disorder] Onset: 09-29-2023 09-29-2023 Chronic Diseases of mouth; excluding dental (2 sources) Diseases of lips; Translations: [Diseases of lips] Onset: 05-07-2024 Episodic Genitourinary symptoms and ill-defined conditions (1 source) Dysuria Episodic Gout and other crystal arthropathies (3 sources) Gouty arthritis of left foot; Translations: [Gout, unspecified] Chronic Headache; including migraine (4 sources) Migraine without aura, not refractory ; Translations: [Migraine without aura, not intractable, without status migrainosus] Onset: 10-04-2023 10-04-2023 Chronic Heart valve disorders (4 sources) Heart murmur 10-04-2022 Episodic Nonspecific chest pain (4 sources) Chest pain, unspecified; Translations: [CHEST PAIN UNSPECIFIED] Onset: 11-17-2022 Episodic Nutritional deficiencies (4 sources) Vitamin D deficiency; Translations: [Vitamin D deficiency, unspecified] Onset: 09-29-2023 09-29-2023 Chronic Osteoarthritis (1 source) Osteoarthritis 07-30-2024 Chronic Other acquired deformities (2 sources) Acquired deformity of nose; 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] Onset: 03-15-2024 Episodic Other connective tissue disease (1 source) Pain in right arm; Translations: [PAIN IN RIGHT ARM] Onset: 11-03-2022 Episodic Other connective tissue disease (1 source) Pain in left foot Episodic Other diseases of kidney and ureters (1 source) 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; Translations: [Cyst of kidney, acquired] Onset: 07-30-2024 Episodic Other diseases of kidney and ureters (1 source) Cyst of kidney 07-30-2024 Episodic Other injuries and conditions due to external causes (1 source) History of falling; Translations: [HISTORY OF FALLING] Onset: 11-05-2022 Episodic Other nutritional; endocrine; and metabolic disorders (4 sources) Morbid obesity; Translations: [Morbid (severe) obesity [...] Onset: 03-15-2024 Episodic Other upper respiratory infections (8 sources) Chronic sinusitis, unspecified; Translations: [Chronic rhinitis] Onset: 12-20-2023 12-20-2023 Chronic Other upper respiratory infections (1 source) Acute upper respiratory infection, unspecified Episodic Residual codes; unclassified (5 sources) Obstructive sleep apnea syndrome; Translations: [Obstructive sleep apnea (adult) (pediatric)] Onset: 10-04-2023 10-04-2023 Chronic Residual codes; unclassified (4 sources) Hypersomnia with sleep apnea; Translations: [Hypersomnia, unspecified] Onset: 04-17-2024 04-17-2024 Chronic Spondylosis; intervertebral disc disorders; other back problems (10 sources) Spondylosis without myelopathy or radiculopathy, cervical [...] Problem Date Documented Date Episodic/Chronic Abdominal pain (14 sources) Unspecified abdominal pain; Translations: [Pelvic and [...] NEOPLSM OTH GENIT ORGN] Onset: 06-25-2022 Episodic Residual codes; unclassified (4 sources) Family history of malignant neoplasm of breast in first degree relative; Translations: [Family history of malignant neoplasm of breast] Onset: 09-29-2023 09-29-2023 Episodic Residual codes; unclassified (4 sources) Bilateral lower limb edema; Translations: [Localized edema] Onset: 09-29-2023 09-29-2023 Episodic Unclassified (1 source) Contact with and (suspected) exposure to covid-19 Z20.822 Viral infection (1 source) COVID-19 Onset: 07-22-2021 Resolved: 07-22-2021 Results Test Name Value Interpretation Reference [place] Facility Ambulatory Visit Summaryon 1 09-29-2023 Ambulatory Visit Summary Ambulatory Visit Summary LUL BRITTON :1985 Visit Date:07/30/2024 Ambulatory Visit Instructions Your Diagnosis Kidney stones Flank pain Renal cyst Your Care Team Attending Physician - CLARITZA JOHNSTON, Anna Lorenzana Primary Care Physician - KIRBY ALBERTO MD This Is Your Medications List Contact prescribing physician if questions or concerns APAP/butalbital/caffei ne (APAP/butalbital/caffe ine 325 mg-50 mg-40 mg Tab) amitriptyline (amitriptyline 25 mg Tab) amphetamine-dextroamph etamine (Adderall) caffeine cholecalciferol (Vitamin D3 2000 intl units oral tablet) cyanocobalamin (Vitamin B12) etodolac (Lodine 400 mg oral tablet) paroxetine (Paxil 20 mg Tab) thiamine Procedures Performed Procedure on back (06/18/2024), Procedure on back (06/04/2024), Nasal septoplasty (05/07/2024), Nose - repair or plastic operation (05/07/2024), Appendectomy, Cholecystectomy, Colonoscopy, Hernia, Lithotripsy, Tubal ligation. Discharge Vitals Heart Rate (Peripheral) 79 Respiratory Rate 18 Blood Pressure 128/95 Height 153 cm Height 60 in Weight 98 kg Weight 216.053 lb BMI 41.86 What to do next Scheduled Follow-Up Appointments Tuesday 9:45 AM EST With: Anna JERRY MD Where: [facility] [address] [place] [address]- You Need to Schedule the Following Appointments Follow Up with Anna JERRY MD, URElsy When: Where: [facility] [address], [place] [address]- [phone] Medications What How Much When Instructions Unchanged amitriptyline (amitriptyline 25 mg Tab) 1 Tablets Contact prescribing physician if questions or concerns Unchanged amphetamine-dextroamph etamine (Adderall) 40 Milligram By Mouth Contact prescribing physician if questions or concerns Unchanged APAP/ butalbital/ caffeine (APAP/ butalbital/ caffeine 325 mg-50 mg-40 mg Tab) 1 Tablets Contact prescribing physician if questions or concerns Unchanged caffeine 200 Milligram By Mouth Contact prescribing physician if questions or concerns Unchanged cholecalciferol (Vitamin D3 2000 intl units oral tablet) Contact prescribing physician if questions or concerns Unchanged cyanocobalamin (Vitamin B12) See instructions Contact prescribing physician if questions or concerns Unchanged etodolac (Lodine 400 mg oral tablet) 1 Tablets By Mouth Contact prescribing physician if questions or concerns Unchanged paroxetine (Paxil 20 mg Tab) By Mouth Every day Contact prescribing physician if questions or concerns Unchanged thiamine 100 Milligram Contact prescribing physician if questions or concerns Allergies penicillin G benzathine (Eruption) Problems Ongoing - Any problem that you are currently receiving treatment for. Flank pain Heart murmur History of kidney stones Kidney stones Osteoarthritis Renal cyst Patient Survey You may receive a survey via text or e-mail asking about your office visit. Please share your experience with us by completing your survey. We appreciate your feedback and thank you for choosing us for your care. Education Materials Dietary Guidelines to Help Prevent Kidney Stones Kidney stones are deposits of minerals and salts that form inside your kidneys. Your risk of developing kidney stones may be greater depending on your diet, your lifestyle, the medicines you take, and whether you have certain medical conditions. Most people can lower their risks of developing kidney stones by following these dietary guidelines. Your dietitian may give you more specific instructions depending on your overall health and the type of kidney stones you tend to develop. What are tips for following this plan? Reading food labels ??? Choose foods with no salt added or low-salt labels. Limit your salt (sodium) intake to less than 1,500 mg a day. ??? Choose foods with calcium for each meal and snack. Try to eat about 300 mg of calcium at each meal. Foods that contain 200???500 mg of calcium a serving include: ? 8 oz (237 mL) of milk, cryhkvr-raxicdpzllhl-j airy milk, and calcium-fortifiedfruit juice. Calcium-fortified means [...] of sardines or mackerel. Most people need 1,000???1,500 mg of calcium a day. Talk to your dietitian about how much calcium is recommended for you. Shopping ??? Buy plenty of fresh fruits and vegetables. Most people do not need to avoid fruits and vegetables, even if these foods contain nutrients that may contribute to kidney stones. ??? When shopping for convenience foods, choose: ? Whole pieces of fruit. ? Pre-made salads with dressing on the side. ? Low-fat (more content not included)... Normal [facility] Urology Office/Clinic Noteon 07-30-2024 Urology Office/Clinic Note Urology Office/Clinic Note Chief Complaint 1yr f/u HPI Staff 1 yr f/u w/ KUB & QING. Last seen IO 07/05/23 by INGRIS, dx: kidney stones, flank pain. Pt called our office 09/22/23 c/o R flank pain and bladder pain. Had gone to urgent and was neg for UTI. QING neg for hydro but KUB showed 7mm overlying R renal pelvis near UVJ which was new. Pt called back and advised that she passed the stone at work but was unable to catch it. KUB/QING 06/30/24 [facility]. Dysuria: denies Incomplete bladder emptying: denies Hematuria: denies Frequency: every 2-3hrs Urgency: denies Nocturia: occasionally 1-3x per night Stream: good stream Leaking: denies Post void dripping: denies Wearing pads/ Depends: denies Urge incontinence: denies Stress incontinence: sometimes - only small amount if sneezing really hard Incontinence without Sensory Awareness: denies Abdominal pain: denies Flank pain: pain on right side, has had pain on this side for years but had severe pain about 6wks ago - then states she had bloody tissue come out while urinating Sexual complaints: denies History of Present Illness Tests reviewed: reviewed UA, KUB, QING I have reviewed the previous health record information and history for this patient from [facility]. I have reviewed and verified the staff HPI to be accurate for this encounter. Review of Systems PHQ Score Initial Depression Screen Score: 0 SCORE ROS - Provider Constitutional: denies weight loss, denies hot flashes. Eyes: denies eye problems. Gastrointestinal: denies nausea, denies vomiting. Cardiovascular: denies chest pain or angina. Integumentary: no dryness Musculoskeletal: denies musculoskeletal symptoms. ENMT: denies otolaryngeal symptoms. Respiratory: no shortness of breath. Heme/Lymph: denies easy bleeding tendency, denies easy bruising tendency. Psychiatric: no confusion, no anxiety. Genitourinary: See HPI. Physical Exam Vitals & Measurements HR: 79(Peripheral) RR: 18 BP: 128/95 HT: 60 in HT: 153 cm WT: 98 kg WT: 216.053 lb BMI: 41.86 General Appearance: alert , no acute distress, well nourished, well developed female. Genitourinary: bladder nonpalpable, moderate right flank pain. Assessment/Plan 1. Kidney stones (N20.0: Calculus of kidney) Hx of kidney stones since age 20. Previously treated in [place]. S/P Lithotripsy in 2017. Hx of 8 lithotripsy surgeries. Had major infection in the past due to stones. Has had pain from stones. KUB 12/09/22 [facility] - bilateral stones. No visible ureteral calcifications. Review by PRW: 6mm stone on R > L. A couple tiny stones on the left. XR IVP 10/12/22 [facility] - no ureteral stones or evidence of obstruction. KUB 06/29/23 [facility] - stable 5mm RIP stone and stable appearance of several small L mid body stones. Met w/u 12/06/22 - Significant elevation of 24hr Ca - 479 (nl 100-300). Slightly high 24hr Na - 103. Low-normal citric acid. Volume 2050ml. KUB 09/22/23 [facility] - 7mm R UVJ stone. Multiple bilateral nonobstructing kidney stones measuring up to 1 cm on R, better seen on US. QING 09/22/23 [facility] - Multiple nonobstructing bilateral kidney stones measuring up to 10mm on R and 5mm on L. -Pt passed stone at work but was unable to catch it. KUB 06/30/24 [facility] - No visible stones. QING 06/30/24 [facility] - Several slightly hyperechoic foci, possibly representing stones bilaterally. Took HCTZ many years ago but experienced dizziness. Reviewed metabolic workup results again. Discussed need for medication to help prevent stone growth/formation. Advised pt she can take this qod. Also recommended pt to increase fluid intake and limit sodium intake. Reviewed imaging results. Advised pt she likely still has bilateral stones. Will continue to monitor. -Start HCTZ 12.5mg qod. Will check electrolyte level 1 month after starting this, will call pt with results. -Increase water intake and decrease sodium intake 2. Flank pain (R10.9: Unspecified abdominal pain) Reports ongoing R flank pain. Denies radiating to abdomen. Does not wake from sleep from pain. States she went to physical therapy last year for musculoskeletal pain but still has issues with this. Discussed possibility of herniated disc. States she had ablations done on her back in May due to back pain, was told she had arthritis. 3. Renal cyst (N28.1: Cyst of kidney, acquired) QING 06/30/24 [facility] - Isoechoic area within R mid body/superior pole, 2.8 x 1.9 x 2.5 cm; prominent cortical parenchymal is favored over a mass. 1.1 cm benign-appearing L renal cyst. Reviewed imaging results. Advised pt this appears consistent this a cyst vs mass. However will get CT scan to further evaluate. Pt agrees. -Schedule CT scan. Will call pt with results. Follow-up With When Contact Information Anna JERRY MD, URL [facility] [address], [place] [address]- [phone] Additional Instructions: schedule CT scan Patient Education Dietary Guidelines to Help Prevent Kidney Stones Ailin Colbert (more content not included)... Normal [facility] Comment on above: Result Comment: Elec tronically Signed By: Anna JERRY MD\.br\Date and Time Signed: 07/30/24 17:01 EST\.br\Electronically Co-Signed By: Ailin Dubose\.br\Date and Time Co-Signed: 07/30/24 17:[address] Maxillofacial w/o Contras ton 02-21-2024 CT [...] low as reasonably achievable. Ordering Provider: Yovani Morales FINAL REPORT Dictated: 02/21/2024 2:24 pm Fidel Diamond DO Signed (Electronic Signature): 02/21/2024 2:24 pm Signed by: Fidel Diamond DO Transcribed by: ADILENE Technologist: GALLO [facility] Consent for Treatmenton 01-19 Consent for Treatment [id number] 0TIFF Normal [facility] Physician Orderon 01-26-2024 Physician Order [id number] 0TIFF [facility] RAD - MISCon 09-23-2023 RAD - MISC [id number] 0TIFF [facility] RAD - Ultrasound Reporton RAD - Ultrasound Report [id number] 0TIFF [facility] Urinalysis - AUTOMATEDon Appearance (U) clear [employer] Other Bilirubin Ql (U) Negative [employer] Other Color (U) yellow [employer] Other Glucose Ql (U) Negative [place] Other Hemoglobin Ql (U) small [employer] Other Ketones Ql (U) Negative [place] Other Leukocyte esterase Test strip Ql (U) Negative [employer] Other Nitrite Ql (U) Negative [employer] Other pH (U) 7.0 [pH] [employer] Other Protein Ql (U) Negative [employer] Other Specific gravity (U) [Rel density] 1.025 [employer]BD [employer] [facility] [employer] Other Urobilinogen (U) [Mass/Vol] 0.2 mg/dL [employer] Other Urinalysis - AUTOMATED NBD [employer] [facility] [employer] Other XR foot LT min 3V*on 023 XR foot LT min 3V* [facility] [address] [place] [address] XRay Report Signed Patient: Lul Britton MR#: [id number] 6 : 1985 Acct:[id number] Age/Sex: 37 / F ADM Date: 03/06/23 Loc: XDUC Room: Type: [facility] Attending Dr: Leana Soler APRN Copies to: [...] Selena Thomson M.D.03/06/2023 2:30 PM Dictation Location: [place] [address] Transcribed By: [facility] 03/06/23 1430 Dictated By: Selena Thomson MD 03/06/23 1429 Signed By: 03/06/23 1430 Normal [facility] XR foot LT min 3V* [facility] [employer] Other XR foot LT min 3V* [facility] [employer] Other XR foot LT min 3V* [address] [place] [address] [employer] Other XR foot LT min 3V* ROBER Chávez [address] [employer] Other XR foot LT min 3V* XRay Report [employer] Other XR foot LT min 3V* Signed [employer] Other XR foot LT min 3V* Patient: Lul [place] MR#: [id number] [employer] Other XR foot LT min 3V* 6 [employer]ying Lic[employer] Other XR foot LT min 3V* : 1985 Acct:[id number] [employer] [employer] Other XR foot LT min 3V* Age/Sex: 37 / F ADM Date: 03/06/23 [facility] Other XR foot LT min 3V* Loc: XDUCLY Room: Type: REG CLI [facility] [employer] Other XR foot LT min 3V* Attending Dr: Leana Soler SOLE SEWER HAND [employer] Other XR foot LT min 3V* Copies to: Leana Soler, SOLE SEW[employer] Other XR foot LT min 3V* Ordering Provider: Leana Soler SOLE SEW[employer] Other XR foot LT min 3V* Date of Service: 03/06/23 [facility] Other XR foot LT min 3V* XR/XR foot LT min 3V*: M79.672 [employer] [employer] Other XR foot LT min 3V* LEFT FOOT - 3 views [employer] Other XR foot LT min 3V* CLINICAL DATA: Dorsa l foot pain for the past 5 days. No injury [facility] Other XR foot LT min 3V* COMPARISON: None [facility] Other XR foot LT min 3V* AP, lateral and oblique views were obtained. There is no evidence of fracture or dislocation. [employer] Other XR foot LT min 3V* There are posterior and plantar calcaneal spurs. There is soft tissue swelling over the dorsum of [employer] [employer] Other XR foot LT min 3V* foot. The soft tissu es of the ankle are also prominent. [employer] [employer] Other XR foot LT min 3V* XR/XR foot LT min 3V* [employer] Other XR foot LT min 3V* IMPRESSION: [employer] Other XR foot LT min 3V* NO ACUTE BONY FINDINGS. [employer] Other XR foot LT min 3V* Impression dictated by: Selena Thomson M.D.03/06/2023 2:30 PM [employer] [employer] Other XR foot LT min 3V* Dictation Location: [place] [address] [employer] [employer] Other XR foot LT min 3V* Transcribed By: NESSA 03/06/23 1430 [employer] [employer] Other XR foot LT min 3V* Dictated By: Selena Thomson MD 03/06/23 1429 [employer] [employer] Other XR foot LT min 3V* Signed By: Y[employer]ying Licai Other XR foot LT min 3V* 03/06/23 1430 [facility] Other CITRATE URINE 24HRon 12-08-2 023 Citric Acid, U, 24hr 410 mg/24 hr Normal 320-1240 The [facility] Comment on above: Result Comment: This test was developed and its performance characteristics determined by [employer]. It has not been cleared or approved by the Food and Drug Administration. Performed By: #### O X24HR #### [facility] [address] [address] [address] Neil Krishnamurthy Citric Acid, Urine 200 mg/L Normal Undefined [facility] Comment on above: Performed By: #### O X24HR #### [facility] [address] [address] [address] Neil Krishnamurthy OXALATE 24HR URINEon 023 Oxalates, Urine 7 mg/L Normal Undefined [facility] Comment on above: Performed By: #### O X24HR #### [facility] [address] [address] [address] Neil Krishnamurthy Oxalates, Urine 24hr 14 mg/24 hr Normal 4-31 [facility] Comment on above: Performed By: #### O X24HR #### [facility] [address] [place] [address] Dr. Neil Krishnamurthy MAGNESIUM 24HR URINEon 12-07 Magnesium 24hr Urine 116.9 mg/24 hr Normal 12.0-293.0 [facility] Comment on above: Performed By: #### C O2, CL, BUN, CREA, URIC, K, CA, NA #### [facility] [address] [address] [address] Neil Krishnamurthy Magnesium UR 5.7 mg/dL Normal Not Estab. The [facility] Comment on above: Performed By: #### C O2, CL, BUN, CREA, URIC, K, CA, NA #### [facility] [address] [address] [address] Neil Krishnamurthy PHOSPHORUS 24HR URINEon 11-18 Phosphorus, Urine 56.6 mg/dL Normal Not Estab. The [facility] Comment on above: Performed By: #### O X24HR #### [facility] [address] [address] [address] Neil Krishnamurthy Phosphorus, Urine 24hr 1160 mg/24 hr Critically high 261-1078 [facility] Comment on above: Performed By: #### O X24HR #### [facility] [address] [address] [address] Neil Krishnamurthy PTH INTACTon 12-07-2022 PTH, Intact 41 pg/mL Normal 15-65 [facility] Comment on above: Performed By: #### O X24HR #### [facility] [address] [place] [address] Dr. Neil Krishnamurthy URIC ACID 24 HR URINEon 11-18 Uric Acid, Urine 23.4 mg/dL Normal Not Estab. The [facility] Comment on above: Performed By: #### O X24HR #### [facility] [address] [place] [address] Dr. Neil Krishnamurthy Uric Acid, Urine 24hr 479.7 mg/24 hr Normal 173.7-902.1 [facility] Comment on above: Performed By: #### O X24HR #### [facility] [address] [place] [address] Dr. Neil Krishnamurthy BUNon 12-06-2022 Urea nitrogen [Mass/Vol] 12.0 mg/dL Normal 7.0-18.0 [facility] Comment on above: Performed By: #### C O2, CL, BUN, CREA, URIC, K, CA, NA #### [facility] [address] [place] [address] Dr. Neil Krishnamurthy CALCIUMon 12-06-2022 Calcium [Mass/Vol] 8.6 mg/dL Normal 8.5-10.1 [facility] Comment on above: Performed By: #### O X24HR #### [facility] [address] [place] [address] Dr. Neil Krishnamurthy CALCIUM 24 HR URINEon 2022 CALC, 24 HR UR 479.7 mg/24 hr Critically high 100.0-300.0 [facility] Comment on above: Performed By: #### V AGINT #### [facility] [address] [place] [address] Dr. Neil Krishnamurthy UR CALCIUM 23.4 mg/dL Critically high 5.1-21.0 The [facility] Comment on above: Performed By: #### V AGINT #### [facility] [address] [place] [address] Dr. Neil Krishnamurthy UR TOT VOL 2050 ml/24 HR Normal [facility] Comment on above: Performed By: #### V AGINT #### [facility] [address] [place] [address] Dr. Neil Krishnamurthy Performed By: #### C O2, CL, BUN, CREA, URIC, K, CA, NA #### [facility] [address] [place] [address] Dr. Neil Krishnamurthy CHLORIDEon 12-06-2022 Chloride [Moles/Vol] 106 mmol/L Normal 98-107 [facility] Comment on above: Performed By: #### C O2, CL, BUN, CREA, URIC, K, CA, NA #### [facility] [address] [place] [address] Dr. Neil Krishnamurthy CO2on 12-06-2022 CO2 [Moles/Vol] 25.7 mmol/L Normal 21.0-32.0 [facility] Comment on above: Performed By: #### C O2, CL, BUN, CREA, URIC, K, CA, NA #### [facility] [address] [place] [address] Dr. Neil Krishnamurthy CREA 24 HR URINEon CREA, 24 HR UR 1371.04 mg/24 hr Normal 800.00-1, 800. 00 [facility] Comment on above: Performed By: #### C O2, CL, BUN, CREA, URIC, K, CA, NA #### [facility] [address] [place] [address] Dr. Neil Krishnamurthy URINE CREAT 66.88 mg/dL Normal 20.00-300.00 The [facility] Comment on above: Performed By: #### C O2, CL, BUN, CREA, URIC, K, CA, NA #### [facility] [address] [place] [address] Dr. Neil Krishnamurthy CREATININEon 12-06-2022 Creatinine [Mass/Vol] 0.78 mg/dL Normal 0.55-1.02 [facility] Comment on above: Performed By: #### C O2, CL, BUN, CREA, URIC, K, CA, NA #### [facility] [address] [place] [address] Dr. Neil Krishnamurthy EGFR-AF ARGENTINE >60 Normal >=60 [facility] Comment on above: Performed By: #### C O2, CL, BUN, CREA, URIC, K, CA, NA #### [facility] [address] [place] [address] Dr. Neil Krishnamurthy EGFR-NON AF ARGENTINE >60 Normal >=60 [facility] Comment on above: Performed By: #### C O2, CL, BUN, CREA, URIC, K, CA, NA #### [facility] [address] [place] [address] Dr. Neil Krishnamurthy NAon 12-06-2022 Sodium [Moles/Vol] 139 mmol/L Normal 136-145 [facility] Comment on above: Performed By: #### C O2, CL, BUN, CREA, URIC, K, CA, NA #### [facility] [address] [place] [address] Dr. Neil Krishnamurthy POTASSIUMon 12-06-2022 Potassium [Moles/Vol] 4.1 mmol/L Normal 3.5-5.1 [facility] Comment on above: Performed By: #### C O2, CL, BUN, CREA, URIC, K, CA, NA #### [facility] [address] [place] [address] Dr. Neil Krishnamurthy SODIUM 24 HR URINEon 12-06- 023 NA, 24 HR UR 211 mmol/24 hr Normal 40-220 [facility] Comment on above: Performed By: #### C O2, CL, BUN, CREA, URIC, K, CA, NA #### [facility] [address] [place] [address] Dr. Neil Krishnamurthy Sodium (U) [Moles/Vol] 103 mmol/L Critically high 30-90 [facility] Comment on above: Performed By: #### C O2, CL, BUN, CREA, URIC, K, CA, NA #### [facility] [address] [place] [address] Dr. Neil Krishnamurthy URIC ACID SERUMon 12-06-2022 Urate [Mass/Vol] 5.0 mg/dL Normal 2.6-6.0 [facility] Comment on above: Performed By: #### C O2, CL, BUN, CREA, URIC, K, CA, NA #### [facility] [address] [address] [address] Neil Krishnamurthy ECHOCARDIO M/2D COMPLETEon 0 11-17-2022 ECHOCARDIO M/2D COMPLETE Patient: LUL BRITTON Exam Date: 11/17/2022 : 1985 Gender:F Ordering : DR KIRBY ALBERTO . Admission #: [id number] Family : Order #: [id number] CLICK HERE TO VIEW EXAM ECHOCARDIOGRAM REPORT [...] Onofre M.D. on 11/18/2022 at 09:50 Normal [facility] US PELVIS AND TRANSVAGon US PELVIS AND [...] by: RIC QUEZADA Date: 2022-11-01 07:20 Normal [facility] XR RIBS RT PA Karl XR RIBS [...] RIC QUEZADA Date: 2022-11-01 07:12 Normal [facility] XR TSPINE MIN 4 VIEWSon 10-20 XR [...] by: RIC QUEZADA Date: 2022-11-01 07:09 Normal [facility] CREATININEon 10-12-2022 Creatinine [Mass/Vol] 0.91 mg/dL Normal 0.55-1.02 [facility] Comment on above: Performed By: #### O X24HR #### [facility] [address] [address] [address] Neil Krishnamurthy EGFR-AF ARGENTINE >60 Normal >=60 The [facility] Comment on above: Performed By: #### O X24HR #### [facility] [address] [address] [address] Neil Krishnamurthy EGFR-NON AF ARGENTINE >60 Normal >=60 [facility] Comment on above: Performed By: #### O X24HR #### [facility] [address] [address] [address] Neil Krishnamurthy XR IVPon 10-12-2022 XR IVP EXAMINATION: XR IVP HISTORY: Kidney stone COMPARISON: No relevant comparison available. TECHNIQUE: After obtaining patient consent a clod puller image was obtained followed by injection of [...] by: RIC QUEZADA Date: 2022-10-12 09:48 Normal [facility] XR KUB 1 VIEWon 10-05-2022 XR KUB [...] by: RIC QUEZADA Date: 2022-10-05 07:35 Normal [facility] COVID/FLU RT-PCRon 2 SARS-CoV-2 (COVID-19) RNA BRANDIE+probe Ql (Unsp spec) Negative [employer] [facility] Other COVID/FLU RT-PCR Negative [facility] Other XR KUB 1 VIEWon 08-30-2022 XR [...] RIC QUEZADA Date: 2022-08-30 07:28 Normal [facility] CBC AUTO DIFFon 07-13-2022 BASO # 0.0 103/ul Normal 0.0-0.1 [facility] Comment on above: Performed By: #### V AGINT #### [facility] [address] [place] [address] Dr. Neil Krishnamurthy Basophils/100 WBC (Bld) 0.5 % Normal 0.2-2.0 [facility] Comment on above: Performed By: #### V AGINT #### [facility] [address] [place] [address] Dr. Neil Krishnamurthy EO # 0.2 103/ul Normal 0.0-0.7 [facility] Comment on above: Performed By: #### V AGINT #### [facility] [address] [place] [address] Dr. Neil Krishnamurthy Eosinophils/100 WBC (Bld) 1.9 % Normal 0.9-7.0 [facility] Comment on above: Performed By: #### V AGINT #### [facility] [address] [place] [address] Dr. Neil Krishnamurthy Erythrocyte distribution width (RBC) [Ratio] 11.7 % Normal 11.0-15.0 [facility] Comment on above: Performed By: #### V AGINT #### [facility] [address] [place] [address] Dr. Neil Krishnamurthy Hematocrit (Bld) [Volume fraction] 41.1 % Normal 36.0-48.0 [facility] Comment on above: Performed By: #### V AGINT #### [facility] [address] [place] [address] Dr. Neil Krishnamurthy Hemoglobin (Bld) [Mass/Vol] 13.7 g/dL Normal 12.0-16.0 [facility] Comment on above: Performed By: #### V AGINT #### [facility] [address] [place] [address] Dr. Neil Krishnamurthy IG # 0.03 10e3/ul Normal 0.00-0.03 [facility] Comment on above: Performed By: #### V AGINT #### [facility] [address] [place] [address] Dr. Neil Krishnamurthy IG % 0.4 % Normal 0.0-0.5 [facility] Comment on above: Performed By: #### V AGINT #### [facility] [address] [place] [address] Dr. Neil Krishnamurthy LYMPH # 2.8 103/ul Normal 1.2-3.8 [facility] Comment on above: Performed By: #### V AGINT #### [facility] [address] [place] [address] Dr. Neil Krishnamurthy Lymphocytes/100 WBC (Bld) 32.9 % Normal 20.5-60.0 [facility] Comment on above: Performed By: #### V AGINT #### [facility] [address] [place] [address] Dr. Neil Krishnamurthy MANUAL DIFF REQ NO Normal [facility] Comment on above: Performed By: #### V AGINT #### [facility] [address] [place] [address] Dr. Neil Krishnamurthy MCH (RBC) [Entitic mass] 30.4 pg Normal 26.7-34.0 [facility] Comment on above: Performed By: #### V AGINT #### [facility] [address] [place] [address] Dr. Neil Krishnamurthy MCHC (RBC) [Mass/Vol] 33.3 g/dL Normal 29.9-35.2 [facility] Comment on above: Performed By: #### V AGINT #### [facility] [address] [place] [address] Dr. Neil Krishnamurthy MCV (RBC) [Entitic vol] 91.3 fL Normal 81.0-99.0 [facility] Comment on above: Performed By: #### V AGINT #### [facility] [address] [place] [address] Dr. Neil Krishnamurthy MONO # 0.7 103/ul Normal 0.3-0.8 [facility] Comment on above: Performed By: #### V AGINT #### [facility] [address] [place] [address] Dr. Neil Krishnamurthy Monocytes/100 WBC (Bld) 8.0 % Normal 1.7-12.0 [facility] Comment on above: Performed By: #### V AGINT #### [facility] [address] [place] [address] Dr. Neil Krishnamurthy NEUT # 4.8 103/ul Normal 1.4-6.5 [facility] Comment on above: Performed By: #### V AGINT #### [facility] [address] [place] [address] Dr. Neil Krishnamurthy Neutrophils/100 WBC (Bld) 56.3 % Normal 43.0-75.0 [facility] Comment on above: Performed By: #### V AGINT #### [facility] [address] [place] [address] Dr. Neil Krishnamurthy Platelet mean volume (Bld) [Entitic vol] 11.0 fL Normal 9.5-13.5 [facility] Comment on above: Performed By: #### V AGINT #### [facility] [address] [place] [address] Dr. Neil Krishnamurthy PLT 242 103/ul Normal 150-450 [facility] Comment on above: Performed By: #### V AGINT #### [facility] [address] [place] [address] Dr. Neil Krishnamurthy RBC 4.50 106/ul Normal 4.20-5.40 [facility] Comment on above: Performed By: #### V AGINT #### [facility] [address] [place] [address] Dr. Neil Krishnamurthy WBC 8.5 103/ul Normal 4.0-11.0 [facility] Comment on above: Performed By: #### V AGINT #### [facility] [address] [address] [address] Neil Krishnamurthy GLYCOHEMOGLOBIN A1Con 2021 ADA RECOMMENDATION SEE BELOW Normal [facility] Comment on above: Result Comment: ADA RECOMMENDED LIMIT 4.0 - 6.0 ADA THERAPEUTIC TARGET < 7.0 ACTION SUGGESTED > 7.0 Performed By: #### V AGINT #### [facility] [address] [address] [address] Neil Krishnamurthy Glucose [Mass/Vol] 97 mg/dL Normal [facility] Comment on above: Performed By: #### V AGINT #### [facility] [address] [place] [address] Dr. Neil Krishnamurthy HbA1c (Bld) [Mass fraction] 5.0 % Normal 4.5-6.2 [facility] Comment on above: Performed By: #### V AGINT #### [facility] [address] [place] [address] Dr. Neil Krishnamurthy LIPID PROFILEon 07-13-2022 CHOL-HDL RATIO NORM SEE BELOW Normal [facility] Comment on above: Result Comment: 3.3 - 4.4 LOW RISK 4.4 - 7.1 AVERAGE RISK 7.1 - 11.0 MODERATE RISK >11.0 HIGH RISK Performed By: #### O X24HR #### [facility] [address] [place] [address] Dr. Neil Krishnamurthy Cholesterol [Mass/Vol] 157 mg/dL Normal <=200 [facility] Comment on above: Performed By: #### O X24HR #### [facility] [address] [place] [address] Dr. Neil Krishnamurthy Cholesterol in HDL [Mass/Vol] 50 mg/dL Normal 40-60 [facility] Comment on above: Performed By: #### O X24HR #### [facility] [address] [place] [address] Dr. Neil Krishnamurthy Cholesterol in LDL [Mass/Vol] 79.4 mg/dL Normal [facility] Comment on above: Performed By: #### O X24HR #### [facility] [address] [place] [address] Dr. Neil Krishnamurthy Cholesterol.total/C holesterol in HDL [Mass ratio] 3.1 {ratio} Normal [facility] Comment on above: Performed By: #### O X24HR #### [facility] [address] [address] [address] Neil Krishnamurthy HDL NORMAL > or = 60 mg/dl - LO W CARDIOVASCULAR RISK <40 mg/dl - HIGH CARDIOVASCULAR RISK Normal [facility] Comment on above: Performed By: #### O X24HR #### [facility] [address] [address] [address] Neil Krishnamurthy LDL CALC NORMAL SEE BELOW Normal [facility] Comment on above: Result Comment: <100 mg/dl OPTIMAL 100 - 129 mg/dl NEAR OR ABOVE OPTIMAL 130 - 159 mg/dl BORDERLINE HIGH 160 - 189 mg/dl HIGH >190 mg/dl VERY HIGH Performed By: #### O X24HR #### [facility] [address] [address] [address] Neil Krishnamurthy Triglyceride [Mass/Vol] 138 mg/dL Normal <=150 [facility] Comment on above: Performed By: #### O X24HR #### [facility] [address] [address] [address] Neil Krishnamurthy VLDL CALC 27.6 mg/dL Normal [facility] Comment on above: Performed By: #### O X24HR #### [facility] [address] [address] [address] Neil Krishnamurthy LIVER PROFILEon 07-13-2022 Albumin [Mass/Vol] 3.5 g/dL Normal 3.4-5.0 [facility] Comment on above: Performed By: #### O X24HR #### [facility] [address] [address] [address] Neil Krishnamurthy Albumin/Globulin [Mass ratio] 1.0 {ratio} Normal [facility] Comment on above: Performed By: #### O X24HR #### [facility] [address] [address] [address] Neil Krishnamurthy ALP [Catalytic activity/Vol] 83 U/L Normal 46-116 [facility] Comment on above: Performed By: #### O X24HR #### [facility] [address] [address] [address] Neil Krishnamurthy ALT [Catalytic activity/Vol] 19 U/L Normal 14-59 [facility] Comment on above: Performed By: #### O X24HR #### [facility] [address] [address] [address] Neil Krishnamurthy AST [Catalytic activity/Vol] 15 U/L Normal 15-37 [facility] Comment on above: Performed By: #### O X24HR #### [facility] [address] [address] [address] Neil Krishnamurthy BILI, CONJUGATED 0.1 mg/dL Normal 0.0-0.2 [facility] Comment on above: Performed By: #### O X24HR #### [facility] [address] [address] [address] Neil Krishnamurthy Bilirubin [Mass/Vol] 0.6 mg/dL Normal 0.2-1.0 [facility] Comment on above: Performed By: #### O X24HR #### [facility] [address] [address] [address] Neil Krishnamurthy Globulin (S) [Mass/Vol] 3.5 g/dL Normal [facility] Comment on above: Performed By: #### O X24HR #### [facility] [address] [address] [address] Neil Krishnamurthy Protein [Mass/Vol] 7.0 g/dL Normal 6.4-8.2 [facility] Comment on above: Performed By: #### O X24HR #### [facility] [address] [address] [address] Neil Krishnamurthy PROF CHEM 8 (BAS METB)on Anion gap [Moles/Vol] 10.8 mmol/L Normal [facility] Comment on above: Performed By: #### O X24HR #### [facility] [address] [address] [address] Neil Krishnamurthy Calcium [Mass/Vol] 8.2 mg/dL Critically low 8.5-10.1 Th e [facility] Comment on above: Performed By: #### O X24HR #### [facility] [address] [address] [address] Neil Krishnamurthy Chloride [Moles/Vol] 105 mmol/L Normal 98-107 [facility] Comment on above: Performed By: #### O X24HR #### [facility] [address] [address] [address] Neil Krishnamurthy CO2 [Moles/Vol] 24.5 mmol/L Normal 21.0-32.0 [facility] Comment on above: Performed By: #### O X24HR #### [facility] [address] [place] [address] Dr. Neil Krishnamurthy Creatinine [Mass/Vol] 0.74 mg/dL Normal 0.55-1.02 [facility] Comment on above: Performed By: #### O X24HR #### [facility] [address] [address] [address] Neil Krishnamurthy EGFR-AF ARGENTINE >60 Normal >=60 [facility] Comment on above: Performed By: #### O X24HR #### [facility] [address] [place] [address] Dr. Neil Krishnamurthy EGFR-NON AF ARGENTINE >60 Normal >=60 [facility] Comment on above: Performed By: #### O X24HR #### [facility] [address] [place] [address] Dr. Neil Krishnamurthy Glucose [Mass/Vol] 106 mg/dL Normal 74-106 [facility] Comment on above: Performed By: #### O X24HR #### [facility] [address] [address] [address] Neil Krishnamurthy Potassium [Moles/Vol] 3.5 mmol/L Normal 3.5-5.1 [facility] Comment on above: Performed By: #### O X24HR #### [facility] [address] [address] [address] Neil Krishnamurthy Sodium [Moles/Vol] 137 mmol/L Normal 136-145 [facility] Comment on above: Performed By: #### O X24HR #### [facility] [address] [place] [address] Dr. Neil Krishnamurthy Urea nitrogen [Mass/Vol] 11.0 mg/dL Normal 7.0-18.0 [facility] Comment on above: Performed By: #### O X24HR #### [facility] [address] [place] [address] Dr. Neil Krishnamurthy Urea nitrogen/Creatinine [Mass ratio] 14.8 mg/mg Normal [facility] Comment on above: Performed By: #### O X24HR #### [facility] [address] [place] [address] Dr. Neil Krishnamurthy TSHon 07-13-2022 TSH 1.166 uIU/mL Normal 0.358-3.740 [facility] Comment on above: Performed By: #### O X24HR #### [facility] [address] [place] [address] Dr. Neil Krishnamurthy VITAMIN D 25 OHon 07-13-2022 VIT D 25-OH 23.8 ng/mL Normal [facility] Comment on above: Performed By: #### V ITAD #### [facility] [address] [place] [address] Dr. Neil Krishnamurthy VIT D RANGES SEE BELOW Normal [facility] Comment on above: Result Comment: <20 ng/mL Vit D deficient 20 - <30 ng/mL Vit D insufficient 30 - 100 ng/mL Vit D sufficient >100 ng/mL Potential Toxicity Performed By: #### V ITAD #### [facility] [address] [place] [address] Dr. Neil Krishnamurthy MG MAMM SCREEN 3D MARKEL CADon 06-23-2022 MG MAMM SCREEN 3D MARKEL CAD Patient: LUL BRITTON Exam Date: 06/23/2022 : 1985 Gender:F Ordering : DR KATHY BARRAGAN . Admission #: [id number] Family : Order #: [id number] CLICK HERE TO VIEW EXAM RADIOLOGY REPORT [...] cervical cancer at age 31. LOCATION: The [facility] BREAST COMPOSITION: Heterogeneously dense,which may obscure small [...] Ric Quezada MD on 06/23/2022 at 11:17 [facility] PAP ACOG PANEL 2: 30 to 65on 06-16-2022 . . Normal [facility] Comment on above: Result Comment: Perf ormed at: WB Performed By: #### C O2, CL, BUN, CREA, URIC, K, CA, NA #### [facility] [address] [address] [address] Neil Krishnamurthy Age Gdln ACOG Testing 30-65 Normal [facility] Comment on above: Performed By: #### C O2, CL, BUN, CREA, URIC, K, CA, NA #### [facility] [address] [address] [address] Neil Krishnamurthy DIAGNOSIS: Comment Normal [facility] Comment on above: Result Comment: NEGA TIVE FOR INTRAEPITHELIAL LESION OR MALIGNANCY. Performed at: WB Performed By: #### C O2, CL, BUN, CREA, URIC, K, CA, NA #### [facility] [address] [address] [address] Neil Krishnamurthy HPV Aptima Negative Normal Negative [facility] Comment on above: Result Comment: This nucleic acid amplification test detects fourteen high-risk HPV types (16,18,31,33,35,39,45,51,52,56,58,59,66,68) without differentiation. Performed at: =G Performed By: #### C O2, CL, BUN, CREA, URIC, K, CA, NA #### [facility] [address] [address] [address] Neil Krishnamurthy Methodology: Comment Normal [facility] Comment on above: Result Comment: This liquid based ThinPrep(R) pap test was screened with the use of an image guided system. Performed at: WB Performed By: #### C O2, CL, BUN, CREA, URIC, K, CA, NA #### [facility] [address] [address] [address] Neil Krishnamurthy Note: Comment Normal [facility] Comment on above: Result Comment: The Pap [...] BUN, CREA, URIC, K, CA, NA #### [facility] [address] [place] [address] Dr. Neil Krishnamurthy Performed by: Comment Normal [facility] Comment on above: Result Comment: Fang Song, Global Compensation Manager (ASCP) Performed at: WB Performed By: #### C O2, CL, BUN, CREA, URIC, K, CA, NA #### [facility] [address] [place] [address] Dr. Neil Krishnamurthy Specimen adequacy: Comment Normal [facility] Comment on above: Result Comment: Sati sfactory for evaluation. Endocervical and/or squamous metaplastic cells (endocervical component) are present. Performed at: WB Performed By: #### C O2, CL, BUN, CREA, URIC, K, CA, NA #### [facility] [address] [address] [address] Neil Krishnamurthy VAGINITIS/VAGINOSIS DNA PROB Jovi 06-03-2022 Rachel species Negative Normal Negative [facility] Comment on above: Performed By: #### V AGINT #### [facility] [address] [address] [address] Neil Krishnamurthy Gardnerella vaginalis Positive Abnormal Negative [facility] Comment on above: Performed By: #### V AGINT #### [facility] [address] [address] [address] Neil Krishnamurthy Trichomonas vaginalis Negative Normal Negative [facility] Comment on above: Performed By: #### V AGINT #### [facility] [address] [address] [address] Neil Krishnamurthy COVID Quick Testingon 2020 Result Positive [facility] Other XR ABDOMEN LIMITED (KUB)on XR ABDOMEN LIMITED (KUB) EXAMINATION:SUPINE VIEW(S) OF THE UKSRAAQ6307/08/2017 1:38 pmCOMPARISON:October 19, 2010HISTORY:ORDERING SYSTEM PROVIDED HISTORY: [...] by:TIMBO Menendezigned by:Raheel Morales MD07/08/17Final result Normal [facility] Vital Signs Date Time Vital Sign Value Performing Clinician Facility 07-30-2024 15:48-0500 Blood Pressure Location Anna JERRY [facility] 07-30-2024 15:48-0500 Diastolic blood pressure 95 mm[Hg] Anna JERRY [facility] 07-30-2024 15:48-0500 Heart rate 79 /min Anna JERRY [facility] 07-30-2024 15:48-0500 Respiratory rate 18 /min Anna JERRY [facility] 07-30-2024 15:48-0500 Systolic blood pressure 128 mm[Hg] Anna JERRY [facility] 07-05-2024 11:45-0400 Body height 152.4 cm Kirby Alberto MD Work Phone: [facility] 07-05-2024 11:45-0400 Body mass index (BMI) [Ratio] 44.72 kg/m2 Kirby Alberto MD Work Phone: [facility] 07-05-2024 11:45-0400 Body temperature 97.81 [degF] Kirby Alberto MD Work Phone: [facility] 07-05-2024 11:45-0400 Body weight 103.87 kg Kirby Alberto MD Work Phone: [facility] 07-05-2024 11:45-0400 Diastolic blood pressure 78 mm[Hg] Kirby Alberto MD Work Phone: [facility] 07-05-2024 11:45-0400 Heart rate 97 /min Kirby Alberto MD Work Phone: [facility] 07-05-2024 11:45-0400 Respiratory rate 20 /min Kirby Alberto MD Work Phone: [facility] 07-05-2024 11:45-0400 SaO2% (BldA) [Mass fraction] 98 % Kirby Alberto MD Work Phone: [facility] 07-05-2024 11:45-0400 Systolic blood pressure 136 mm[Hg] Kirby Alberto MD Work Phone: [facility] 09-22-2023 12:00-0500 Body height 152.4 cm Elisabeth Ma Other [facility] Other 09-22-2023 12:00-0500 Body mass index (BMI) [Ratio] 41.87 kg/m2 Elisabeth Steeleler Other [facility] Other 09-22-2023 12:00-0500 Body temperature 97.7 [degF] Elisabeth Ma Other [facility] Other 09-22-2023 12:00-0500 Body weight 97.25 kg Elisabeth Ma Other [facility] Other 09-22-2023 12:00-0500 Diastolic blood pressure 86 mm[Hg] Elisabeth Ma Other [facility] Other 09-22-2023 12:00-0500 Respiratory rate 18 /min Elisabeth Ma Other [facility] Other 09-22-2023 12:00-0500 SaO2% (BldA) [Mass fraction] 99 % Elisabeth Anil Other [facility] Other 09-22-2023 12:00-0500 Systolic blood pressure 124 mm[Hg] Elisabeth Ma Other [facility] Other 03-06-2023 13:50-0400 Body height 152.4 cm Leana Soler Other [facility] Other 03-06-2023 13:50-0400 Body mass index (BMI) [Ratio] 42.3 kg/m2 Leana Soler Other [facility] Other 03-06-2023 13:50-0400 Body temperature 98.2 [degF] Leana Soler Other [facility] Other 03-06-2023 13:50-0400 Body weight 98.25 kg Leana Soler Other [facility] Other 03-06-2023 13:50-0400 Diastolic blood pressure 76 mm[Hg] Leana Soler Other [facility] Other 03-06-2023 13:50-0400 Respiratory rate 18 /min Leana Khanley Other [facility] Other 03-06-2023 13:50-0400 SaO2% (BldA) [Mass fraction] 100 % Leana Khanley Other [facility] Other 03-06-2023 13:50-0400 Systolic blood pressure 111 mm[Hg] Leana Soler Other [facility] Other 09-01-2022 17:15-0500 Body height 152.4 cm Jennyfer Ruiz Other [facility] Other 09-01-2022 17:15-0500 Body mass index (BMI) [Ratio] 41.98 kg/m2 Jennyfer Ruiz Other [facility] Other 09-01-2022 17:15-0500 Body temperature 98.4 [degF] Jennyfer Ruiz Other [facility] Other 09-01-2022 17:15-0500 Body weight 97.52 kg Jennyfer Ruiz Other [facility] Other 09-01-2022 17:15-0500 Respiratory rate 18 /min Jennyfer Ruiz Other [facility] Other 09-01-2022 17:15-0500 SaO2% (BldA) [Mass fraction] 99 % Jennyfer Maravillamond Other [facility] Other 04-22-2022 14:30-0400 Body height 152.4 cm Jessenia Ortiz Other [facility] Other 04-22-2022 14:30-0400 Body mass index (BMI) [Ratio] 40.42 kg/m2 Jessenia Ortiz Other [facility] Other 04-22-2022 14:30-0400 Body weight 93.9 kg Jessenia Ortiz Other [facility] Other 04-22-2022 14:30-0400 Diastolic blood pressure 89 mm[Hg] Jessenia Ortiz Other [facility] Other 04-22-2022 14:30-0400 Respiratory rate 18 /min Jessenia Ortiz Other [facility] Other 04-22-2022 14:30-0400 SaO2% (BldA) [Mass fraction] 100 % Jessenia Ortiz Other [facility] Other 04-22-2022 14:30-0400 Systolic blood pressure 116 mm[Hg] Jessenia Ortiz Other [facility] Other 07-22-2021 11:00-0400 Body height 152.4 cm Jennyfer Sara Other [facility] Other 07-22-2021 11:00-0400 Body mass index (BMI) [Ratio] 38.08 kg/m2 Jennyfer Sara Other [facility] Other 07-22-2021 11:00-0400 Body temperature 96.2 [degF] Jennyfer Ruiz Other [facility] Other 07-22-2021 11:00-0400 Body weight 88.45 kg Jennyfer Ruiz Other [facility] Other 07-22-2021 11:00-0400 Respiratory rate 18 /min Jennyfer Ruiz Other [facility] Other 07-22-2021 11:00-0400 SaO2% (BldA) [Mass fraction] 99 % Jennyfer Ruiz Other [facility] Other Encounters Encounter Date Encounter Type Care Provider Facility Start: 07-29-2025 ambulatory Anna JERRY Facili ty:[facility] Start: 08-02-2024 End: 08-02-2024 Refill Kirby Alberto MD Work Phone: [facility] Comment on above: Obstructive sleep ap beatriz (adult) (pediatric) Start: 07-30-2024 End: 07-30-2024 ambulatory Anna JERRY Facility:[facility] Start: 07-30-2024 End: 07-30-2024 Patient encounter procedure Anna JERRY [facility] Start: 07-05-2024 End: 07-05-2024 Bamboo flowsheet Kirby Alberto MD Work Phone: [facility] Start: 07-05-2024 End: 07-05-2024 Bamboo flowsheet Kirby Alberto MD Work Phone: [facility] Start: 07-05-2024 End: 07-05-2024 Office outpatient visit 15 minutes Kirby Alberto MD Work Phone: [facility] Comment on above: Acute bronchitis due to other specified organisms (Primary Dx) Start: 07-05-2024 End: 07-05-2024 ambulatory KIRBY QUIROZERER Not Available Start: 06-18-2024 End: 06-18-2024 ambulatory Joanne Cameron MD Facility: [facility] Start: 06-05-2024 End: 06-05-2024 ambulatory KIRBY ALBERTO Not Available Start: 06-04-2024 End: 06-04-2024 ambulatory Joanne Cameron MD Facility:[facility] Start: 05-14-2024 End: 05-14-2024 ambulatory [facility] Start: 05-07-2024 End: 05-07-2024 ambulatory [facility] Start: 04-16-2024 End: 04-16-2024 ambulatory Joanne Cameron MD Facility:[facility] Start: 03-26-2024 End: 03-26-2024 ambulatory KIRBY ALBERTO Not Available Start: 03-15-2024 End: 03-15-2024 ambulatory [facility] Start: 02-21-2024 End: 02-21-2024 ambulatory YOVANI H TIMMIS Not Available Start: 02-17-2024 End: 02-17-2024 ambulatory Yovani H Timmis Facility:[facility] Start: 02-17-2024 End: 02-17-2024 Patient encounter procedure Yovani H Timmis [facility] Start: 01-16-2024 End: 01-16-2024 ambulatory YOVANI H TIMMIS Not Available Start: 12-20-2023 End: 12-20-2023 ambulatory KIRBY NADERER Not Available Start: 10-04-2023 End: 10-04-2023 ambulatory KIRBY NADERER Not Available Start: 09-22-2023 End: 09-22-2023 ambulatory Elisabeth Ma Other [facility] Other Start: 09-22-2023 Office outpatient vi sit 15 minutes Elisabeth Ma [facility] Start: 09-05-2023 End: 09-05-2023 ambulatory Joanne Cameron MD Facility:[facility] Start: 08-15-2023 End: 08-15-2023 ambulatory Joanne Cameron MD Facility:[facility] Start: 07-05-2023 End: 07-05-2023 Patient encounter procedure CHARLOTTE SCALES [facility] Start: 03-06-2023 End: 03-06-2023 Patient encounter procedure KEN Soler Work Phone: [facility] Work Phone: Start: 03-06-2023 End: 03-06-2023 ambulatory Leana Soler [facility] Other Start: 03-06-2023 Office outpatient vi sit [...] Patient encounter procedure Anna JERRY [facility] Start: 10-02-2022 End: 10-03-[address] ANNA JERRY . Facility:[facility] Start: 09-01-2022 End: 09-01-2022 ambulatory Jennyfer Ruiz Other [facility] Other Start: 09-01-2022 Office outpatient vi sit 15 minutes Jennyfer Ruiz [facility] Start: 08-27-2022 End: 08-28-[address] RIC QUEZADA Facility:[facility] Start: 07-18-2022 Encounter for genera l adult medical examination without abnormal findings DR KIRBY ALBERTO [facility] Start: 07-13-2022 End: [address] KIRBY ALBERTO Facility:[facility] Start: 07-13-2022 End: 2022 Encounter for general adult medical examination without abnormal findings DR KIRBY ALBERTO Facility:[facility] Start: 06-23-2022 End: 06-24-[address] KATHY BARRAGAN . Facility:[facility] Start: 06-09-2022 End: 06-09-[address] KATHY BARRAGAN . Facility:[facility] Start: 06-02-2022 End: 06-02-[address] DOCTOR GOODSON Facility:[facility] Start: 04-22-2022 End: 04-22-2022 ambulatory Jessenia Ortiz Other [facility] Other Start: 04-22-2022 Office outpatient vi sit 15 minutes Jessenia Ortiz [facility] Start: 07-22-2021 End: 07-22-2021 ambulatory Jennyfer Ruiz Other [facility] Other Start: 07-22-2021 Office outpatient vi sit 15 minutes Jennyfer Ruiz [facility] Start: 07-08-2017 End: 07-09-2017 Ambulatory [facility] Procedures Date Procedure Procedure Detail Performing Clinician Start: 06-18-2024 Procedure on back Patri ck JERRY Start: 06-04-2024 Procedure on back Patri ck JERRY Start: 05-07-2024 Nasal septoplasty Patri ck JERRY Start: 05-07-2024 Nose - repair or liset stic operation Anna JERRY Start: 03-06-2023 X-ray of left foot KEN Soler Work Phone: Start: 07-08-2017 X-ray exam of abdomen Quintin SCHUMACHER Appendectomy Anna JERRY Cholecystectomy Anna NEIL KAISER Colonoscopy Anna JERRY Hernia of abdominal cavity (disorder) Anna JERRY Ligation of fallopian tube P christineck CLARITZA Lithotripsy Anna JERRY Plan of Treatment Date Care Activity Detail Author Start: 09-25-2024 End: 09-25-2024 Patient encounter procedure 09/25/2024 3:30 PM EST Office Visit [facility] [address] [place] [id number] Kirby Alberto MD [address] [place] [id number] [facility] Start: 07-05-2024 End: 07-05-2024 Patient encounter procedure 07/05/2024 11:45 AM EDT Office Visit [facility] [address] [place] [address] Kirby Alberto MD [address] [place] [id number] Arrived [facility] Comment on above: Arrived Start: 05-20-2024 Influenza vaccination Influenza Vacc ine (#1) [facility] Start: 2016 Screening for malign ant neoplasm of cervix [facility] Start: 2007 Screening for malign ant neoplasm of cervix Pap Smear [facility] Immunizations Immunization Date Immunization Notes Care Provider Fa ciliolu 05-11-2010 tetanus toxoid, redu jose juan diphtheria toxoid, and acellular pertussis vaccine, adsorbed Annaissa JERRY [facility] 01-10-2007 varicella virus vaccine Patr reinierchristiano JERRY [facility] 12-07-2006 varicella virus vaccine Patr reinierchristiano JERRY [facility] 04-25-2006 hepatitis B vaccine, pediatric or pediatric/adolescent dosage Annaissa JERRY [facility] 12-20-2005 hepatitis B vaccine, pediatric or pediatric/adolescent dosage Annaissa JERRY [facility] 11-15-2005 hepatitis B vaccine, pediatric or pediatric/adolescent dosage Annaissa JERRY [facility] 03-10-1999 diphtheria, tetanus toxoids and acellular pertussis vaccine, unspecified formulation Kirby Alberto MD Work Phone: [facility] 03-10-1999 DTaP, unspecified formulation Annaissa JERRY [facility] 03-10-1999 measles, mumps and rubella virus vaccine Annaissa JERRY [facility] Payers Date Payer Category Payer Self-pay 2022 Medicaid [id number] 2022 Unknown 2020 Private Health Insurance [id number] 2017 Unknown [id number] 2.1 6.840.1.485538.19 1986 Unknown [id number] 2.16.84 0.1.847603.3.579.2.593 1986 Unknown [id number] 2.16.84 0.1.121218.3.579.2.593 1986 Unknown [id number] 2.16.84 0.1.350762.3.579.2.593 1986 Unknown [id number] 2.16.84 0.1.803810.3.579.2.593 1986 Unknown [id number] 2.16.84 0.1.855453.3.579.2.593 1986 Unknown [id number] 2.16.84 0.1.202415.3.579.2.593 1986 Unknown [id number] 2.16.84 0.1.077555.3.579.2.593 1986 Unknown [id number] 2.16.84 0.1.070528.3.579.2.593 1986 Unknown [id number] 2.16.84 0.1.190408.3.579.2.593 1986 Unknown [id number] 2.16.84 0.1.252576.3.579.2.593 1986 Unknown [id number] 2.16.84 0.1.979113.3.579.2.593 1986 Unknown [id number] 2.16.84 0.1.237168.3.579.2.1259 1986 Unknown [id number] 2.16.84 0.1.462334.3.579.2.1259 1986 Unknown [id number] 2.16.84 0.1.155888.3.579.2.1259 1986 Unknown [id number] 2.16.84 0.1.577831.3.579.2.1259 1986 Unknown [id number] 2.16.84 0.1.730314.3.579.2.1259 1986 Unknown [id number] 2.16.8 40.1.377627.3.579.2.1244 1986 Unknown [id number] 2.16.8 40.1.059731.3.579.2.1244 1986 Unknown [id number] 2.16.8 40.1.876080.3.579.2.1245 1986 Unknown [id number] 2.16. 840.1.054172.3.579.2.196 1986 Unknown [id number] 2.16. 840.1.230873.3.579.2.196 1986 Unknown [id number] 2.16. 840.1.688929.3.579.2.196 1986 Unknown [id number] 2.16. 840.1.482635.3.579.2.196 1986 Unknown [id number] 2.16. 840.1.729768.3.579.2.196 1986 Unknown [id number] 2.16.84 0.1.458813.3.579.2.1259 1986 Unknown [id number] 2.16.84 0.1.799819.3.579.2.1259 1986 Unknown [id number] 2.16.8 40.1.752295.3.579.2.727 1986 Unknown [id number] 2.16.8 40.1.939278.3.579.2.727 1986 Unknown [id number] 2.16.8 40.1.824046.3.579.2.727 1959 Unknown [id number] 1959 Unknown [id number] 2.1 6.840.1.941914.19 1959 Unknown [id number] Unknown [id number] 2.16.8 40.1.518641.19 Unknown [id number] 2.16.8 40.1.688074.3.579.2.531 Social History Date Type Detail Facility Unknown if ever smoked [facility] Other Start: 09-27-2023 End: 10-04-2023 Sex Assigned At [facility] Start: 10-04-2022 End: 02-08-2023 Tobacco smoking status Never smoked tobacco (finding) [facility] Start: 1985 Sex Assigned At Female [facility] Start: 10-04-2023 Tobacco smoking status NHIS Ex-smoker [facility] History of tobacco use [...] Only a little [facility] (I/We) worried wheumu er (my/our) food would run out before (I/we) got money to buy more. Never true [facility] Start: 09-29-2023 Tobacco Comment Vape [facility] Start: 1985 Sex assigned at Not on file [facility] Tobacco Vape Tobacco Use :. Current vaping or e-cigarette use Smokeless Tobacco Use:. Vaping [facility] Tobacco smoking status No Smokin g Status Entered [facility] Functional Status Date Assessment Result Facility 07-30-2024 Functional Status N/A [facility] 07-05-2023 Functional Status N/A [facility] 10-04-2022 Functional Status N/A [facility] Clinical Notes 07-22-2021 to 07-30-2024 Kirby Alberto MD - 07/05/2024 12:01 PM EDTMsin Alberto MD - 07/05/2024 11:45 AM EDT Note Date & Type Note Facility 07-30-2024 Hospital Discharg e instructions Patient Education 07/30/2024 16:57:16 Dietary Guidelines to Help Prevent Kidney Stones Dietary Guidelines to Help Prevent Kidney Stones Kidney stones are deposits of minerals and salts that form inside your kidneys. Your risk of developing kidney stones may be greater depending on your diet, your lifestyle, the medicines you take, and whether you have certain medical conditions. Most people can lower their risks of developing kidney stones by following these dietary guidelines. Your dietitian may give you more specific [...] include: ?8 oz (237 mL) of milk, wizcdxr-deycxsoznzwz-gvcbw milk, and calcium-fortifiedfruit juice. Calcium-fortified means that [...] table and allow each person to add their own salt to taste. Use vegetable protein, [...] fish, or seafood. ?When you prepare animal proteins, cut pieces into small portion sizes. For [...] ?Have two kinds of vegetables at dinner. You may be told to limit foods that are high in a substance called oxalate. These include: ?Spinach (cooked), rhubarb, beets, sweet potatoes, and Burmese chard. ?Peanuts. ?Potato chips, st [place]ian fries, and baked potatoes with skin on. ?Nuts and nut products. ?Chocolate. If you regularly take a diuretic medicine, make sure to eat at least 1 or 2 servings of fruits or vegetables that are high in potassium each day. These include: ?Avocado. ?Banana. ?Hickman, prune, carrot, or tomato juice. ?Baked potato. ?Cabbage. ?Beans and split peas. Lifestyle Drink enough fluid to keep your urine pale yellow. This is the most important thing you can do. Spread your fluid intake throughout the day. If you drink alcohol: ?Limit how much you have to: ?0 1 drink a day for women who are not . ?0 2 drinks a day for men. ?Know how much alcohol is in your drink. [...] of your kidney stones, you may be told: ?Do not take high-dose supplements of vitamin C (1,000 mg a day or more). ?To take a calcium supplement. ?To take a daily probiotic supplement. ?To take other supplements such as magnesium, fish oil, or vitamin B6. Take mihe-iad-yfgibrm and prescription medicines only as told by [...] sausages, meat loaves, and hot dogs. Dairy Cheeses. Beverages Regular soft drinks. Regular vegetable juice. Seasonings and condiments Seasoning blends with salt. Salad dressings. Soy sauce. Ketchup. Barbecue sauce. Other foods Canned soups. Canned pasta sauce. Casseroles. Pizza. Lasagna. Frozen meals. Potato chips. Georgian fries. The items listed above may not [...] with your health care provider. Document Revised: 12/16/2022 Document Reviewed: 12/16/2022 [employer] Patient Education 2023 [employer]. Follow Up Care 07/05/2023 15:47:59 With:CLARITZA JOHNSTON, Anna Lorenzana, URL Address: [facility] [address], [place] [address]- [phone] When: Unknown [facility] 07-30-2024 Note Patient Education Nephrology Dietary Guidelines to Help Prevent Kidney Stones Kidney stones are deposits of minerals and salts that form inside your kidneys. Your risk of developing kidney stones may be greater depending on your diet, your lifestyle, the medicines you take, and whether you have certain medical conditions. Most people can lower their risks of developing kidney stones by following these dietary guidelines. Your dietitian may give you more specific instructions depending on your overall health and the type of kidney stones you tend to develop. What are tips for following this plan? Reading food labels ??? Choose foods with no salt added or low-salt labels. Limit your salt (sodium) intake to less than 1,500 mg a day. ??? Choose foods with calcium for each meal and snack. Try to eat about 300 mg of calcium at each meal. Foods that contain 200?500 mg of calcium a serving include: ? 8 oz (237 mL) of milk, ptsjvgh-sesijokqpddm-ffnqi milk, and calcium-fortifiedfruit juice. Calcium-fortified means that [...] much calcium is recommended for you. Shopping ??? Buy plenty of fresh fruits and vegetables. Most people do not need to avoid fruits and vegetables, even if these foods contain nutrients that may contribute to kidney stones. ??? When shopping for convenience foods, choose: ? Whole pieces of fruit. ? Pre-made salads with dressing on the side. ? Low-fat fruit and yogurt smoothies. ??? Avoid buying frozen meals or prepared deli foods. These can be high in sodium. ??? Look for foods with live cultures, such as yogurt and kefir. ??? Choose high-fiber grains, such as whole-wheat breads, oat bran, and wheat cereals. Cooking ??? Do not add salt to food when cooking. Place a salt shaker on the table and allow each person to add their own salt to taste. ??? Use vegetable protein, such as beans, textured vegetable protein (TVP), or tofu, instead of meat in pasta, casseroles, and soups. Meal planning ??? Eat less salt, if told by your dietitian. To do this: ? Avoid eating processed or pre-made food. ? Avoid eating fast food. ??? Eat less animal protein, including cheese, meat, poultry, or fish, if told by your dietitian. To do this: ? Limit the number of times you have meat, poultry, fish, or cheese each week. Eat a diet free of meat at least 2 days a week. ? Eat only one serving each day of meat, poultry, fish, or seafood. ? When you prepare animal proteins, cut pieces into small portion sizes. For most meat and fish, one serving is about the size of the palm of your hand. ??? Eat at least five servings of fresh fruits and vegetables each day. To do this: ? Keep fruits and vegetables on hand for snacks. ? Eat one piece of fruit or a handful of berries with breakfast. ? Have a salad and fruit at lunch. ? Have two kinds of vegetables at dinner. ??? You may be told to limit foods that are high in a substance called oxalate. These include: ? Spinach (cooked), rhubarb, beets, sweet potatoes, and Burmese chard. ? Peanuts. ? Potato chips, st lucian fries, and baked potatoes with skin on. ? Nuts and nut products. ? Chocolate. ??? If you regularly take a diuretic medicine, make sure to eat at least 1 or 2 servings of fruits or vegetables that are high in potassium each day. These include: ? Avocado. ? Banana. ? Hickman, prune, carrot, or tomato juice. ? Baked potato. ? Cabbage. ? Beans and split peas. Lifestyle ??? Drink enough fluid to keep your urine pale yellow. This is the most important thing you can do. Spread your fluid intake throughout the day. ??? If you drink alcohol: ? Limit how much you have to: ? 0?1 drink a day for women who are not . ? 0?2 drinks a day for men. ? Know how much alcohol is in your drink. In the [place] one drink equals one 12 oz bottle of beer (355 mL), one 5 oz glass of wine (148 mL), or one 1? oz glass of hard liquor (44 mL). ??? Lose weight if told by your health care provider. Work with your dietitian to find an eating plan and weight loss strategies that work best for you. General information ??? Talk to your health care provider and dietitian about taking daily supplements. Depending on your health and the cause of your kidney stones, you may be told: ? Do not take high-dose supplements of vitamin C (1,000 mg a day or more). ? To take a calcium supplement. ? To take a daily probiotic supplement. ? To take other supplements such as magnesium, fish oil, or vitamin B6. ??? Take eyjx-ugk-zfzxyvo and prescription medicines only as told by your health (more content not included)... [facility] 07-05-2024 History of Presen t illness Narrative [...] 50 MG tablet documented in this encounter [facility] 09-22-2023 Evaluation note Encounter Date Diagnosis Assessment Notes Sep, Dysuria (ICD-10 - R30.0) Discussed dipstick findings with patient. Advised patient that there is no evidence of acute UTI. Advised that this is likely related to stone. Recommended ER for further evaluation and workup. Patient verbalizes understanding and is agreeable with treatment plan Yingying Licai Other 09-25-2023 Hospital Discharge instructions Patient Education [...] include: ?8 oz (237 mL) of milk, idkasnd-oaywutwvcscs-mhlns milk, and calcium- fortifiedfruit juice. Calcium-fortified means [...] ?Spinach (cooked), rhubarb, beets, sweet potatoes, and Burmese chard. ?Peanuts. ?Potato chips, st lucian fries, and baked potatoes with skin on. ?Nuts and nut products. ?Chocolate. If you regularly take a diuretic medicine, make sure to eat at least 1 or 2 servings of fruits or vegetables that are high in potassium each day. These include: ?Avocado. ?Banana. ?Hickman, prune, carrot, or tomato juice. ?Baked potato. [...] magnesium, fish oil, or vitamin B6. Take lxgk-qhl-uixiqit and prescription medicines only as told by [...] Casseroles. Pizza. Lasagna. Frozen meals. Potato chips. Georgian fries. The items listed above may not [...] provider. Document Revised: 05/17/2022 Document Reviewed: 05/17/2022 [employer] Patient Education 2022 [employer]. Follow Up Care 02/08/2023 16:17:30 With:YORDY WILLSON, CHARLOTTE Lam, URL Address: [address] [place] [address] [phone] When: Unknown Comments:2 yr w/ BOGDAN and QING [facility] 06-18-2023 Evaluation note* Encounter Date Diagnosis [...] fever. Patient verbalized understanding of treatment plan. Yingying Licai Other 01-16-2023 Hospital Discharge instructions Patient Education [...] include: ?Spinach. ?Rhubarb. ?Beets. ?Potato chips and st lucian fries. ?Nuts. If you regularly take a diuretic medicine, make sure to eat at least 1 2 fruits or vegetables high in potassium each day. These include: ?Avocado. ?Banana. ?Hickman, prune, carrot, or tomato juice. ?Baked potato. [...] Casseroles. Pizza. Lasagna. Frozen meals. Potato chips. Georgian fries. Summary You can reduce your risk [...] 12/31/2011 Document Revised: 12/26/2019 Document Reviewed: 08/16/2017 [employer] Patient Education 2019 [employer]. Follow Up Care 08/30/2022 15:20:43 With:CLARITZA JOHNSTON, Anna Lorenzana, URL Address: [facility] [address], [place] [address]- When: Unknown [facility] Evaluation note* Encounter Date Diagnosis Assessment [...] needed for cough or shortness of breath Yingying Licai Other 08-04-2022 Evaluation note* Encounter Date Diagnosis [...] care provider if no improvement of symptoms. Yingying Licai Other 11-03-2021 Evaluation note* Encounter Date Diagnosis [...] Patient care instructions given in writting by [facility] Care At Home document. Yingying Licai Other evaluation + Plan note Future Appointments Appointment Date:01/10/2023 03:15:00 PM Scheduled Provider:Anna JERRY MD Location:[facility] Appointment Type:URO Office Visit Diagnostic Tests Pending * Creatinine 10/04/22 [facility] evaluation + Plan note Future Appointments Appointment Date:07/10/2024 02:00:00 PM Scheduled Provider:CHARLOTTE SCALES PA-C Location:[facility] Appointment Type:URO Office Visit [facility] evaluation + Plan note Future Appointments Appointment Date:07/29/2025 09:45:00 AM Scheduled Provider:Anna JERRY MD Location:[facility] Appointment Type:URO Office Visit Diagnostic Tests Pending * Electrolyte Panel 07/30/24 [facility] evaluation noteNo assessment information available [facility] Work Phone: evaluation note* Diagnosis Migraine without aura and without [...] specified organisms- Primary documented in this encounter [facility] HealthcareEvaluation note* Diagnosis Migraine without aura and without [...] bronchitis due to other specified organisms- Primary Obstructive sleep apnea (adult) (pediatric) documented in this encounter [facility] HealthcareHistory general Narrative - Reported* Type Description Date Medical History kidney stones Surgical History C section Surgical History appendectomy Surgical History cholecystectomy Surgical History hernia repair Surgical History lithotripsy Surgical History wisdom teeth extract Hospitalization History see above [facility] Licai Other History general Narrative - Reported* Type Description Date Medical History kidney stones Medical History anxiety Medical History migraine headache Surgical History C section Surgical History appendectomy Surgical History cholecystectomy Surgical History hernia repair Surgical History lithotripsy Surgical History wisdom teeth extract Hospitalization History see above Yingying Licai Other History general Narrative - Reported* Type Description Date Medical History kidney stones Medical History anxiety Medical History migraine headache Surgical History C section Surgical History appendectomy Surgical History cholecystectomy Surgical History hernia repair Surgical History lithotripsy Surgical History wisdom teeth extract Surgical History cortisone shots in back Hospitalization History see above Yingying Licai Other Hospital course Narrative No data available for this section [facility] Discharge instructions No data available for this section [facility] No data available for this section [facility] Summary Purpose Family History No Family History Records FoundNo Family History Records FoundNo Family History Records Found No data available for this section No data available for this section No Family History Records FoundNo Family History Records FoundNo Family History Records FoundNo Family History Records FoundNo Family History Records Found No data available for this section No Family History Records Found Advance Directives No Advanced Directives Records FoundNo Advanced Directives Records FoundNo Advanced Directives Records FoundNo Advanced Directives Records FoundNo Advanced Directives Records FoundNo Advanced Directives Records FoundNo Advanced Directives Records FoundNo Advanced Directives Records FoundNo Advanced Directives Records Found Additional Source Comments INFORMATION SOURCE (unrecogn ized section and content) DATE CREATED AUTHOR 03/14/2018 [facility] DATE CREATED AUTHOR AUTHOR'S ORGANIZ ATION 01/19/2023 [facility] DATE CREATED AUTHOR AUTHOR'S ORGANIZ ATION 03/19/2023 [facility] DATE CREATED AUTHOR AUTHOR'S ORGANIZ ATION 04/03/2024 [facility] EPIC DATE CREATED AUTHOR AUTHOR'S ORGANIZ ATION 05/15/2024 [facility] DATE CREATED AUTHOR AUTHOR'S ORGANIZ ATION 06/21/2024 [facility] DATE CREATED AUTHOR AUTHOR'S ORGANIZ ATION 06/22/2024 [facility] DATE CREATED AUTHOR AUTHOR'S ORGANIZ ATION 07/08/2024 [facility] EPIC DATE CREATED AUTHOR AUTHOR'S ORGANIZ ATION 08/01/2024 [facility] REASON FOR VISIT (unrecogniz ed section and content) Reason Comments Follow-up Chest cold/cough Reason Onset Date Comments Med Refill 08/02/2024 Patient Care team informatio n (unrecognized section and content) Team Status: Inactive Member Role Status Dates Leana Soler , [employer] Attending Provider Active Rn Compliance Relationship Specialty Start Date End Date Kirby Alberto MD [address] [place] [address] PCP - General Family Medicine 04/13/23 Mary Thayer MD [address] [place] [address] [facility] 04/13/23 Rn Compliance Relationship Specialty Start Date End Date Kirby Alberto MD [address] [place] [id number] PCP - General [facility] 04/13/23 Mary Thayer MD [address] [place] [address] [facility] 04/13/23 Rn Compliance Relationship Specialty Start Date End Date Kirby Alberto MD [address] [place] [id number] PCP - General [facility] 04/13/23 Mary Thayer MD [address] [place] [address] [facility] 04/13/23 Goals (unrecognized section and content) Goals [...] BE BASED ON THE PRIMARY CLINICAL RECORDS. [facility] provides no warranty or guarantee of the accuracy or completeness of information in this document.
== END 2024-08-23 08:42 | disposition home or self-care (01) ==
LOC: CT 08:42
PROVIDERS: PCP Family Medicine; Visit Provider Urology
DX: N20.0 Calculus of kidney (principal); N28.1 Cyst of kidney, acquired; R10.9 Unspecified abdominal pain
CPT/HCPCS: 74178; Q9967

== ENCOUNTER 2024-08-31 15:39 | Outpatient (OUT) | payer OTHER, SELFPAY ==
--- OUTSIDE RECORDS SUMMARY | 2024-08-31 15:43 | XMS_ITS | CCD ---
Author Organization [facility]ini[facility] Care Team Providers Care Composition Roofer Name Role Phone WINSOME, MINGO S Unavailable [...] Leana Soler Unavailable KEN Soler Attending Provider [phone] Leana Soler Attending Unavailable Leana Soler Admitting Unavailable NO FAMILY, PHYSICIAN Primary Care Unavailable Elisabeth Ma Unavailable KIRBY ALBERTO Attending Unavailable KIRBY ALBERTO Attending Unavailable YOVANI MORALES Attending Unavailable KIRBY ALBERTO Referring Unavailable CARMEN, YOVANI H Attending Unavailable KIRBY ALBERTO Attending Unavailable JARRED PHILLIPS Attending Unavailable GORGE WELDON Attending Unavailable CADEN, JARRED C Admitting Unavailable CADEN, JARRED C Attending Unavailable Gigarret JOHNSTON, Andrius Marshall Attending Unavailable Giedraitis , Andrius Vytautas Attending Unavailable Gilalitharaitis , Andrius Vytautas Attending Unavailable Giedraitis , Andrius Vytautas Attending Unavailable Giedraitis , Andrius Vytautas Attending Unavailable Kirby Alberto MD Primary Care Provider Flaca JOHNSTON, Milton Thomas Unavailable KIRBY ALBERTO Attending Unavailable KIRBY ALBERTO Attending Unavailable Anna JERRY Attending Unavailable Anna JERRY Attending Unavailable Timmis, Yovani H Attending Unavailable Timmis, Yovani H Referring Unavailable Timmis, Yovani H Admitting Unavailable Unavailable Primary Care Provider Unavailabl e Allergies Allergy Classification Reported Allergen(s) Allergy Type Date of Onset Reaction(s) Facility Penicillins (antibiotic) (1 source) Penicillin G; Translations: [penicillin G benzathine] Drug Allergy Eruption of skin (disorder) [facility] (9 sources) Penicillin G Benzathine; Translations: [Penicillin G] Drug allergy rash, Eruption of skin (disorder) [facility] (1 source) Penicillin Drug Allergy [facility] Repository (10 sources) Penicillins; Translations: [PENICILLINS] Propensity to adverse reactions to drug (disorder) 4 Hives, Rash [facility] Repository Medications Current Medications Medication Drug Class(es) Dates Sig (Normalized) Sig (Original) acetaminophen 500 mg oral tablet (1 source) take 1 tablet by mouth every six hours Tylenol Extra Strength 500 MG 1 tablet as needed Orally every 6 hrs Active acetaminophen 325 mg / butalbital 50 mg / caffeine 40 mg oral tablet (9 sources) Barbiturate, Central Nervous System Stimulant, Methylxanthine Start: 07-30-2024 APAP/butalbital/ caffeine 325 mg-50 mg-40 mg Tab 1 tab(s), Refill(s) 0 Start Date: 07/30/24 Status: Ordered Start: 02-17-2024 take 1 tablet by mouth four times daily as needed for headache fqhqficslx-naqkaboxcrpby-jpxapbka 50-325 -40 MG tablet Indications: Chronic migraine without aura without status migrainosus, not intractable (CMS/HCC) Take 1 tablet by mouth 4 (four) times a day as needed for headaches 60 tablet 2 02/17/2024 Active amitriptyline hydrochloride 25 mg oral tablet (9 sources) Tricyclic Antidepressant Start: 04-30-2024 amitriptyline 25 mg Tab 25 mg = 1 tab(s), Refills(s) 0 Start Date: 07/30/24 Status: Ordered take 1 tablet by herson th once daily at bedtime amitriptyline (Elavil) 25 mg tablet Take 1 tablet (25 mg) by mouth once daily at bedtime. Active Amphetamine / Dextroamphetamine (1 source) Central Nervous System Stimulant Adderall Active 24 hr amphetamine aspartate 5 mg / amphetamine sulfate 5 mg / dextroamphetamine saccharate 5 mg / dextroamphetamine sulfate 5 mg extended release oral capsule (15 sources) Central Nervous System Stimulant Start: 07-30-2024 Adderall 40 mg, Oral, Refill(s) 0 Start Date: 07/30/24 Status: Ordered Start: 05-28-2024 End: 08-02-2024 take 1 capsule by mouth every twenty-four hours in the morning amphetamine-dextroamphetamine XR (Addera ll XR) 20 MG 24 hr capsule Indications: Obstructive sleep apnea (adult) (pediatric) Take 1 capsule (20 mg) by mouth in the morning. Do not crush or chew.. 60 capsule 06/05/2024 06/05/2024 Discontinued (Reorder) Start: 02-17-2024 End: 03-18-2024 take 1 capsule by mouth once daily amphetamine-dextroamphetamine XR (Addera ll XR) 30 mg 24 hr capsule Take 1 capsule (30 mg) by mouth once daily. 02/17/2024 03/18/2024 Active baclofen 10 mg oral tablet (7 sources) gamma-Aminobutyric Acid-ergic Agonist Start: 09-14-2023 take 1 tablet by mouth in the morning baclofen (Lioresal) 10 mg tablet Take 1 tablet (10 mg) by mouth early in the morning.. 09/14/2023 Active caffeine 200 mg oral tablet (1 source) Central Nervous System Stimulant, Methylxanthine Start: 07-30-2024 caffeine 200 mg, Oral, Refills(s) 0 Start Date: 07/30/24 Status: Ordered cetirizine hydrochloride 10 mg oral tablet (2 sources) Histamine-1 Receptor Antagonist take 1 tablet by mouth every twenty-four hours ZyrTEC Allergy 10 MG 1 tablet Orally Once a day Active 12 hr cetirizine hydrochloride 5 mg / pseudoephedrine hydrochloride 120 mg extended release oral tablet (8 sources) alpha-Adrenergic Agonist, Histamine-1 Receptor Antagonist Start: 03-26-2024 End: 03-26-2025 take 1 tablet by mouth once in the morning, then take 1 tablet by mouth every twelve hours at bedtime cetirizine-pseud oephedrine (ZyrTEC-D) 5-120 MG 12 hr tablet Indications: Chronic pansinusitis Take 1 tablet by mouth in the morning and 1 tablet before bedtime. 60 tablet 11 03/26/2024 03/26/2025 Active Start: 01-16-2024 End: 01-15-2025 take 1 tablet by mouth twice daily cetirizine-pseudoephedrine (ZyrTEC-D) 5- 120 mg 12 hr tablet Take 1 tablet by mouth twice a day. 01/16/2024 01/15/2025 Active cholecalciferol 0.05 mg oral tablet (8 sources) Vitamin D Start: 07-02-2024 take 1 tablet by mouth once daily cholecalciferol (Vitamin D-3) 50 MCG (1999 UT) tablet Indications: Vitamin D deficiency, unspecified TAKE 1 TABLET BY MOUTH DAILY 90 tablet 3 07/02/2024 Active cholecalciferol (Vitamin D-3) 50 MCG (1999 UT) tablet 2,000 Units in the morning. Active take 1 tablet by mouth once marshal y cholecalciferol (Vitamin D-3) 50 MCG (1999 UT) tablet Take 1 tablet (2,000 Units) by mouth once daily. Active clarithromycin 500 mg oral tablet (1 source) Macrolide Antimicrobial Start: 04-22-2022 take 1 tablet by mouth every twelve hours Clarithromycin 500 MG 1 tablet Orally every 12 hrs for 10 day(s) Apr, Active etodolac 400 mg oral tablet (9 sources) Nonsteroidal Anti-inflammatory Drug Start: 02-17-2024 Lodine 400 mg oral tablet 400 mg = 1 tab(s), Oral, Refills(s) 0 Start Date: 07/30/24 Status: Ordered furosemide 40 mg oral tablet (8 sources) Loop Diuretic Start: 03-08-2023 take 1 tablet by mouth every twenty-fou r hours as needed furosemide (Lasix) 40 MG tablet Take 40 mg by mouth Daily as needed 03/08/2023 Active hydroCHLOROthiazide 12.5 mg oral capsule (4 sources) Thiazide Diuretic Start: 07-30-2024 take 1 capsule by mouth every other day hydrochlorothiazide 12.5 mg Cap 12.5 mg = 1 cap(s), Oral, Every other day, # 15 cap(s), Refills(s) 11, Pharmacy: [id number], 153, cm, 07/30/24 16:03:00 EST, Height/Length [...] Ordered PARoxetine hydrochloride 30 mg oral tablet (15 sources) Serotonin Reuptake Inhibitor Start: 12-09-2023 End: [...] 2 tablets Orally Once a day Not-Taking/PRN [id number] 60 actuat albuterol 0.09 mg/actuat metered dose [...] a day prn Aug, Not-Taking polymyxin b 77497 unt/ml / trimethoprim 1 mg/ml ophthalmic solution (1 source) Dihydrofolate Reductase Inhibitor Antibacterial, Polymyxin-class Antibacterial Start: 02-01-2023 take 1 drop(s) into the eye(s) every three hours Polytrim 68480-9.1 UNIT/ML 1 drop into affected eye Ophthalmic every 3 hours while awake for January, Not-Taking Polytrim 41407-4.1 UNIT/ML (1 source) Start: 02-01-2023 take 1 drop(s) into the eye(s) every three hours as needed Polytrim 77974-3.1 UNIT/ML 1 drop into affected eye Ophthalmic every 3 hours while awake for January, Not-Taking/PRN Problems Active Problems Problem Classification Problem Date Documented Date Episodic/Chronic Acute bronchitis (5 sources) Acute infective bronchitis; Translations: [Acute bronchitis due to other specified organisms] Onset: 07-05-2024 07-05-2024 Episodic Anxiety disorders (9 sources) Generalized anxiety disorder; Translations: [Generalized anxiety disorder] Onset: 09-29-2023 09-29-2023 Chronic Diseases of mouth; excluding dental (2 sources) Diseases of lips; Translations: [Diseases of lips] Onset: 05-07-2024 Episodic Genitourinary symptoms and ill-defined conditions (1 source) Dysuria Episodic Gout and other crystal arthropathies (3 sources) Gouty arthritis of left foot; Translations: [Gout, unspecified] Chronic Headache; including migraine (9 sources) Migraine without aura, not refractory ; Translations: [Migraine without aura, not intractable, without status migrainosus] Onset: 10-04-2023 10-04-2023 Chronic Heart valve disorders (4 sources) Heart murmur 10-04-2022 Episodic Nonspecific chest pain (4 sources) Chest pain, unspecified; Translations: [CHEST PAIN UNSPECIFIED] Onset: 11-17-2022 Episodic Nutritional deficiencies (7 sources) Vitamin D deficiency; Translations: [Vitamin D [...] Episodic Other nutritional; endocrine; and metabolic disorders (7 sources) Morbid obesity; Translations: [Morbid (severe) obesity due to excess calories] Onset: 10-04-2023 10-04-2023 Chronic Other upper respiratory disease (4 sources) Deviated nasal septum; Translations: [Deviated nasal septum] Onset: 03-15-2024 Episodic Other upper respiratory disease (5 sources) Deviated nasal septum; Translations: [Deviated nasal septum] Onset: 03-15-2024 Episodic Other upper respiratory disease (2 sources) Nasal congestion; Translations: [Nasal congestion] Onset: 03-15-2024 Episodic Other upper respiratory disease (2 sources) Hypertrophy of nasal turbinates; Translations: [Hypertrophy of nasal turbinates] Onset: 03-15-2024 Episodic Other upper respiratory infections (14 sources) Chronic sinusitis, unspecified; Translations: [Chronic rhinitis] Onset: 12-20-2023 12-20-2023 Chronic Other upper respiratory infections (1 source) Acute upper respiratory infection, unspecified Episodic Residual codes; unclassified (11 sources) Obstructive sleep apnea syndrome; Translations: [Obstructive sleep apnea (adult) (pediatric)] Onset: 10-04-2023 10-04-2023 Chronic Residual codes; unclassified (7 sources) Hypersomnia with sleep apnea; Translations: [Hypersomnia, unspecified] Onset: 04-17-2024 04-17-2024 Chronic Spondylosis; intervertebral disc disorders; other back problems (18 sources) Spondylosis without myelopathy or radiculopathy, cervical [...] Problem Date Documented Date Episodic/Chronic Abdominal pain (17 sources) Unspecified abdominal pain; Translations: [Pelvic and perineal pain] Onset: 10-30-2022 Episodic Calculus of urinary tract (20 sources) Calculus of kidney; Translations: [Kidney stone] Onset: 07-08-2017 Episodic Immunizations and screening for infectious disease (2 sources) Contact with and (suspected) exposure to other viral communicable diseases; Translations: [Encounter for screening for human papillomavirus (HPV)] Onset: 07-22-2021 Resolved: 07-22-2021 Episodic Other acquired deformities (2 sources) Finding of nasal deformity; 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] Onset: 03-15-2024 03-16-2024 Episodic Other female genital disorders (4 sources) Other specified noninflammatory disorders of vagina; Translations: [OTH SPEC NONINFLAMMATORY D/O VAGINA] Onset: 06-02-2022 Episodic Other lower respiratory disease (1 source) Difficulty breathing; Translations: [Other abnormalities of breathing] 03-16-2024 Episodic Other screening for suspected conditions (not mental disorders or infectious disease) (8 sources) Encounter for screening mammogram for malignant neoplasm of breast; Translations: [Encounter for screening for malignant neoplasm of cervix] Onset: 06-09-2022 Episodic Other upper respiratory disease (2 sources) Nasal congestion; Translations: [Nasal congestion] Onset: 03-15-2024 03-16-2024 Episodic Other upper respiratory disease (1 source) Nasal obstruction; Translations: [Other specified disorders of nose and nasal sinuses] 03-16-2024 Episodic Other upper respiratory disease (2 sources) Hypertrophy of nasal turbinates; Translations: [Hypertrophy of nasal turbinates] Onset: 03-15-2024 03-16-2024 Episodic Otitis media and related conditions (1 source) Otitis media, unspecified, left ear Onset: 04-22-2022 Resolved: 04-22-2022 Episodic Residual codes; unclassified (1 source) Family history of malignant neoplasm of breast; Translations: [FAMILY HX MALBARBRA NEOPLASM OF BREAST] Onset: 06-25-2022 Episodic Residual codes; unclassified (1 source) Family history of malignant neoplasm of other genital organs; Translations: [FAM HX MALBARBRA NEOPLSM OTH GENIT ORGN] Onset: 06-25-2022 Episodic Residual codes; unclassified (7 sources) Family history of malignant neoplasm of breast in first degree relative; Translations: [Family history of malignant neoplasm of breast] Onset: 09-29-2023 09-29-2023 Episodic Residual codes; unclassified (9 sources) Bilateral lower limb edema; Translations: [Localized edema] Onset: 09-29-2023 09-29-2023 Episodic Residual codes; unclassified (1 source) Abnormal sensation; Translations: [Other symptoms and signs involving general sensations and perceptions] 03-16-2024 Episodic Unclassified (1 source) Contact with and [...] JOHNSTON, Anna Lorenzana Primary Care Physician - REMY JOHNSTON, KIRBY This Is Your Medications List Contact prescribing [...] Anna JERRY MD Where: [facility] [address] [facility] [place] [address]- You Need to Schedule the Following Appointments Follow Up with Anna JERRY MD, URL When: Where: [facility] [address], [place] [address]- [phone] Medications What How Much When Instructions Unchanged [...] ? 8 oz (237 mL) of milk, mlgokye-gfdtkucmmecr-x airy milk, and calcium-fortifiedfruit juice. Calcium-fortified means [...] Low-fat (more content not included)... Normal [facility] Urology Office/Clinic Noteon 07-30-2024 Urology Office/Clinic Note [...] stones. Has had pain from stones. KUB 08/27/22 TBH - bilateral stones. No [...] URL [facility] [address], [place] [address]- [phone] Additional Instructions: schedule CT scan Patient Education Dietary Guidelines to Help Prevent Kidney Stones Ailin Colbert (more content not included)... Normal [facility] Comment on above: Result Comment: Elec tronically [...] Diamond DO Transcribed by: ADILENE Technologist: GALLO [facility] Consent for Treatmenton 01-19 Consent for Treatment [id number] 0TIFF [facility] Physician Orderon 01-26-2024 Physician Order [id number]#1.0 0TIFF [facility] RAD - MISCon 09-23-2023 RAD - MISC [id number] 0TIFF [facility] RAD - Ultrasound Reporton RAD - Ultrasound Report [id number] 0TIFF [facility] Urinalysis - AUTOMATEDon Appearance (U) clear [employer] Other Bilirubin Ql (U) Negative [employer] Other Color (U) yellow [employer] Other Glucose Ql (U) Negative [employer] Other Hemoglobin Ql (U) small [employer] Other Ketones Ql (U) Negative [employer] Other Leukocyte esterase Test strip Ql (U) Negative [employer] Other Nitrite Ql (U) Negative [employer] Other pH (U) 7.0 [pH] [employer] Other Protein Ql (U) Negative [employer] Other Specific gravity (U) [Rel density] 1.025 [employer] Other Urobilinogen (U) [Mass/Vol] 0.2 mg/dL [employer] [facility] [employer] Other Urinalysis - AUTOMATED [employer] [facility] [employer] Other XR foot LT min 3V*on 023 XR foot LT min 3V* [place] [address] XRay Report Signed Patient: Lul Britton MR#: [id number] 6 : 1985 Acct:[id number] Age/Sex: 37 / F ADM Date: 03/06/23 Loc: XDUCLY Room: Type: [facility] Attending Dr: Leana Soler APRN Copies [...] Selena Thomson M.D.03/06/2023 2:30 PM Dictation Location: [place] [address] Transcribed By: [facility] 03/06/23 1430 Dictated By: Selena Thomson MD 03/06/23 1429 Signed By: 03/06/23 1430 Normal [facility] XR foot LT min 3V* [facility] [employer] Other XR foot LT min 3V* [facility] [employer] Other XR foot LT min 3V* [address] [facility] [employer] Other XR foot LT min 3V* [place] [id number] [facility] [employer] Other XR foot LT min 3V* XRay Report [employer] Other XR foot LT min 3V* Signed [employer] Other XR foot LT min 3V* Patient: Lul Britton MR#: [id number] [employer] Other XR foot LT min 3V* 6 [employer] Other XR foot LT min 3V* : 1985 Acct:[id number] [employer] Other XR foot LT min 3V* Age/Sex: 37 / F ADM Date: 03/06/23 [employer] Other XR foot LT min 3V* Loc: XDUCLY Room: Type: [facility] [employer] Other XR foot LT min 3V* Attending Dr: Leana Soler APRN [employer] Other XR foot LT min 3V* Copies to: Leana Soler, KEN [employer] Other XR foot LT min 3V* Ordering Provider: Leana Soler APRN [employer] Other XR foot LT min 3V* Date of Service: 03/06/23 [employer] Other XR foot LT min 3V* XR/XR foot LT min 3V*: M79.672 [employer] Other XR foot LT min 3V* LEFT FOOT - 3 views [employer] Other XR foot LT min 3V* CLINICAL DATA: Dorsa l foot pain for the past 5 days. No injury [employer] Other XR foot LT min 3V* COMPARISON: None [employer] Other XR foot LT min 3V* AP, lateral and oblique views were obtained. There is no evidence of fracture or dislocation. [employer] Other XR foot LT min 3V* There are posterior and plantar calcaneal spurs. There is soft tissue swelling over the dorsum of [employer] Other XR foot LT min 3V* foot. The soft tissu es of the ankle are also prominent. [employer] Other XR foot LT min 3V* XR/XR foot LT min 3V* [employer] Other XR foot LT min 3V* IMPRESSION: [employer] Other XR foot LT min 3V* NO ACUTE BONY FINDINGS. [employer] Other XR foot LT min 3V* Impression dictated by: Selena Thomson M.D.03/06/2023 2:30 PM [employer] Other XR foot LT min 3V* Dictation Location: [place] [address] [employer] Other XR foot LT min 3V* Transcribed By: NESSA 03/06/23 1430 [employer] Other XR foot LT min 3V* Dictated By: Selena Thomson MD 03/06/23 1429 [employer] Other XR foot LT min 3V* Signed By: [employer] Other XR foot LT min 3V* 03/06/23 1430 [facility] [employer] Other CITRATE URINE 24HRon 12-08-2 023 Citric Acid, U, 24hr 410 mg/24 hr Normal 320-1240 [facility] Comment on above: Result Comment: This test was developed and its performance characteristics determined by [facility]. It has not been cleared or approved by the Food and Drug Administration. Performed By: #### O X24HR #### [facility] [address] [place] [address] Dr. Neil Krishnamurthy Citric Acid, Urine 200 mg/L Normal Undefined [facility] Comment on above: Performed By: #### O X24HR #### [facility] [address] [place] [address] [address] Neil Krishnamurthy OXALATE 24HR URINEon 023 Oxalates, Urine 7 mg/L Normal Undefined [facility] Comment on above: Performed By: #### O X24HR #### [facility] [address] [place] [address] [address] Neil Krishnamurthy Oxalates, Urine 24hr 14 mg/24 hr Normal 4-31 [facility] Comment on above: Performed By: #### O X24HR #### [facility] [address] [place] [address] [address] Neil Krishnamurthy MAGNESIUM 24HR URINEon 12-07 Magnesium 24hr Urine 116.9 mg/24 hr Normal 12.0-293.0 [facility] Comment on above: Performed By: #### C O2, CL, BUN, CREA, URIC, K, CA, NA #### [facility] [address] [place] [address] [address] Neil Krishnamurthy Magnesium UR 5.7 mg/dL Normal Not Estab. [facility] Comment on above: Performed By: #### C O2, CL, BUN, CREA, URIC, K, CA, NA #### [facility] [address] [place] [address] [address] Neil Krishnamurthy PHOSPHORUS 24HR URINEon 11-18 Phosphorus, Urine 56.6 mg/dL Normal Not Estab. [facility] Comment on above: Performed By: #### O X24HR #### [facility] [address] [place] [address] [address] Neil Krishnamurthy Phosphorus, Urine 24hr 1160 mg/24 hr Critically high 261-1078 [facility] Comment on above: Performed By: #### O X24HR #### [facility] [address] [place] [address] [address] Neil Krishnamurthy PTH INTACTon 12-07-2022 PTH, Intact 41 pg/mL Normal 15-65 [facility] Comment on above: Performed By: #### O X24HR #### [facility] [address] [place] [address] [address] Neil Krishnamurthy URIC ACID 24 HR URINEon 11-18 Uric Acid, Urine 23.4 mg/dL Normal Not Estab. The [facility] Comment on above: Performed By: #### O X24HR #### [facility] [address] [place] [address] Dr. Neil Krishnamurthy Uric Acid, Urine 24hr 479.7 mg/24 hr Normal 173.7-902.1 [facility] Comment on above: Performed By: #### O X24HR #### [facility] [address] [place] [address] Dr. Neil Krishnamurthy BUNon 12-06-2022 Urea nitrogen [Mass/Vol] 12.0 mg/dL Normal 7.0-18.0 [facility] Comment on above: Performed By: #### C O2, CL, BUN, CREA, URIC, K, CA, NA #### [facility] [address] [place] [address] Dr. Neil Krishnamurthy CALCIUMon 12-06-2022 Calcium [Mass/Vol] 8.6 mg/dL Normal 8.5-10.1 [facility] Comment on above: Performed By: #### O X24HR #### [facility] [address] [place] [address] Dr. Neil Krishnamurthy CALCIUM 24 HR URINEon 2022 CALC, 24 HR UR 479.7 mg/24 hr Critically high 100.0-300.0 [facility] Comment on above: Performed By: #### V AGINT #### [facility] [address] [place] [address] Dr. Neil Krishnamurthy UR CALCIUM 23.4 mg/dL Critically high 5.1-21.0 [facility] Comment on above: Performed By: #### V AGINT #### [facility] [address] [place] [address] Dr. Neil Krishnamurthy UR TOT VOL 2050 ml/24 HR Normal [facility] Comment on above: Performed By: #### V AGINT #### [facility] [address] [place] [address] Dr. Neil Krishnamurthy Performed By: #### C O2, CL, BUN, CREA, URIC, K, CA, NA #### [facility] [address] [place] [address] Dr. Neil Krishnamurthy CHLORIDEon 12-06-2022 Chloride [Moles/Vol] 106 mmol/L Normal 98-107 [facility] Comment on above: Performed By: #### C O2, CL, BUN, CREA, URIC, K, CA, NA #### [facility] [address] [place] [address] Dr. Neil Krishnamurthy CO2on 12-06-2022 CO2 [Moles/Vol] 25.7 mmol/L Normal 21.0-32.0 [facility] Comment on above: Performed By: #### C O2, CL, BUN, CREA, URIC, K, CA, NA #### [facility] [address] [place] [address] Dr. Neil Krishnamurthy CREA 24 HR URINEon CREA, 24 HR UR 1371.04 mg/24 hr Normal 800.00-1, 800. 00 [facility] Comment on above: Performed By: #### C O2, CL, BUN, CREA, URIC, K, CA, NA #### [facility] [address] [place] [address] Dr. Neil Krishnamurthy URINE CREAT 66.88 mg/dL Normal 20.00-300.00 [facility] Comment on above: Performed By: #### C O2, CL, BUN, CREA, URIC, K, CA, NA #### [facility] [address] [place] [address] Dr. Neil Krishnamurthy CREATININEon 12-06-2022 Creatinine [Mass/Vol] 0.78 mg/dL Normal 0.55-1.02 [facility] Comment on above: Performed By: #### C O2, CL, BUN, CREA, URIC, K, CA, NA #### [facility] [address] [place] [address] Dr. Neil Krishnamurthy EGFR-AF BULGARIAN >60 Normal >=[address] [facility] Comment on above: Performed By: #### C O2, CL, BUN, CREA, URIC, K, CA, NA #### [facility] [address] [place] [address] Dr. Neil Krishnamurthy EGFR-NON AF BULGARIAN >60 Normal >=60 [facility] Comment on above: Performed By: #### C O2, CL, BUN, CREA, URIC, K, CA, NA #### [facility] [address] [place] [address] Dr. Neil Krishnamurthy NAon 12-06-2022 Sodium [Moles/Vol] 139 mmol/L Normal 136-145 [facility] Comment on above: Performed By: #### C O2, CL, BUN, CREA, URIC, K, CA, NA #### [facility] [address] [place] [address] Dr. Neil Krishnamurthy POTASSIUMon 12-06-2022 Potassium [Moles/Vol] 4.1 mmol/L Normal 3.5-5.1 [facility] Comment on above: Performed By: #### C O2, CL, BUN, CREA, URIC, K, CA, NA #### [facility] [address] [place] [address] Dr. Neil Krishnamurthy SODIUM 24 HR URINEon 023 NA, 24 HR UR 211 mmol/24 hr Normal 40-[address] [facility] Comment on above: Performed By: #### C O2, CL, BUN, CREA, URIC, K, CA, NA #### [facility] [address] [place] [address] Dr. Neil Krishnamurthy Sodium (U) [Moles/Vol] 103 mmol/L Critically high 30-90 [facility] Comment on above: Performed By: #### C O2, CL, BUN, CREA, URIC, K, CA, NA #### [facility] [address] [place] [address] Dr. Neil Krishnamurthy URIC ACID SERUMon 12-06-2022 Urate [Mass/Vol] 5.0 mg/dL Normal 2.6-6.[address] [facility] Comment on above: Performed By: #### C O2, CL, BUN, CREA, URIC, K, CA, NA #### [facility] [address] [address] [address] Neil Krishnamurthy ECHOCARDIO M/2D COMPLETEon 0 11-17-2022 ECHOCARDIO M/2D COMPLETE Patient: LUL BRITTON Exam Date: 11/17/2022 : 1985 Gender:F Ordering : DR KIRBY ALBERTO . Admission #: [id number] Family : Order #: [id number] CLICK HERE TO VIEW EXAM ECHOCARDIOGRAM REPORT [...] Onofre M.D. on 11/18/2022 at 09:50 Normal [facility] US PELVIS AND TRANSVAGon US PELVIS [...] RIC QUEZADA Date: 2022-11-01 07:20 Normal [facility] XR RIBS RT PA Karl 3 [...] RIC QUEZADA Date: 2022-11-01 07:12 Normal [facility] XR TSPINE MIN 4 VIEWSon 10-20 [...] RIC QUEZADA Date: 2022-11-01 07:09 Normal [facility] CREATININEon 10-12-2022 Creatinine [Mass/Vol] 0.91 mg/dL Normal 0.55-1.02 [facility] Comment on above: Performed By: #### O X24HR #### [facility] [address] [place] [address] Dr. Neil Krishnamurthy EGFR-AF BULGARIAN >60 Normal >=[address] [facility] Comment on above: Performed By: #### O X24HR #### [facility] [address] [place] [address] Dr. Neil Krishnamurthy EGFR-NON AF BULGARIAN >60 Normal >=60 [facility] Comment on above: Performed By: #### O X24HR #### [facility] [address] [place] [address] Dr. Neil Krishnamurthy XR IVPon 10-12-2022 XR IVP EXAMINATION: XR IVP HISTORY: Kidney stone COMPARISON: No relevant comparison available. TECHNIQUE: After obtaining patient consent a affirmative action officer image was obtained followed by injection of [...] by: RIC QUEZADA Date: 2022-10-12 09:48 Normal [facility] XR KUB 1 VIEWon 10-05-2022 XR [...] by: RIC QUEZADA Date: 2022-10-05 07:35 Normal [facility] COVID/FLU RT-PCRon 2 SARS-CoV-2 (COVID-19) RNA BRANDIE+probe Ql (Unsp spec) Negative [employer] Other COVID/FLU RT-PCR Negative [facility] [employer] Other XR KUB 1 VIEWon 08-30-2022 XR [...] RIC QUEZADA Date: 2022-08-30 07:28 Normal [facility] CBC AUTO DIFFon 07-13-2022 BASO # 0.0 103/ul Normal 0.0-0.1 [facility] Comment on above: Performed By: #### V AGINT #### [facility] [address] [place] [address] Dr. Neil Krishnamurthy Basophils/100 WBC (Bld) 0.5 % Normal 0.2-2.0 [facility] Comment on above: Performed By: #### V AGINT #### [facility] [address] [place] [address] Dr. Neil Krishnamurthy EO # 0.2 103/ul Normal 0.0-0.7 [facility] Comment on above: Performed By: #### V AGINT #### [facility] [address] [place] [address] Dr. Neil Krishnamurthy Eosinophils/100 WBC (Bld) 1.9 % Normal 0.9-7.0 [facility] Comment on above: Performed By: #### V AGINT #### [facility] [address] [place] [address] Dr. Neil Krishnamurthy Erythrocyte distribution width (RBC) [Ratio] 11.7 % Normal 11.0-15.0 [facility] Comment on above: Performed By: #### V AGINT #### [facility] [address] [place] [address] Dr. Neil Krishnamurthy Hematocrit (Bld) [Volume fraction] 41.1 % Normal 36.0-48.0 [facility] Comment on above: Performed By: #### V AGINT #### [facility] [address] [place] [address] Dr. Neil Krishnamurthy Hemoglobin (Bld) [Mass/Vol] 13.7 g/dL Normal 12.0-16.0 [facility] Comment on above: Performed By: #### V AGINT #### [facility] [address] [place] [address] Dr. Neil Krishnamurthy IG # 0.03 10e3/ul Normal 0.00-0.03 [facility] Comment on above: Performed By: #### V AGINT #### [facility] [address] [place] [address] Dr. Neil Krishnamurthy IG % 0.4 % Normal 0.0-0.5 [facility] Comment on above: Performed By: #### V AGINT #### [facility] [address] [place] [address] Dr. Neil Krishnamurthy LYMPH # 2.8 103/ul Normal 1.2-3.8 [facility] Comment on above: Performed By: #### V AGINT #### [facility] [address] [place] [address] Dr. Neil Krishnamurthy Lymphocytes/100 WBC (Bld) 32.9 % Normal 20.5-60.0 [facility] Comment on above: Performed By: #### V AGINT #### [facility] [address] [place] [address] Dr. Neil Krishnamurthy MANUAL DIFF REQ NO Normal [facility] Comment on above: Performed By: #### V AGINT #### [facility] [address] [place] [address] Dr. Neil Krishnamurthy MCH (RBC) [Entitic mass] 30.4 pg Normal 26.7-34.0 [facility] Comment on above: Performed By: #### V AGINT #### [facility] [address] [place] [address] Dr. Neil Krishnamurthy MCHC (RBC) [Mass/Vol] 33.3 g/dL Normal 29.9-35.2 [facility] Comment on above: Performed By: #### V AGINT #### [facility] [address] [place] [address] Dr. Neil Krishnamurthy MCV (RBC) [Entitic vol] 91.3 fL Normal 81.0-99.0 [facility] Comment on above: Performed By: #### V AGINT #### [facility] [address] [place] [address] Dr. Neil Krishnamurthy MONO # 0.7 103/ul Normal 0.3-0.8 [facility] Comment on above: Performed By: #### V AGINT #### [facility] [address] [place] [address] Dr. Neil Krishnamurthy Monocytes/100 WBC (Bld) 8.0 % Normal 1.7-12.0 [facility] Comment on above: Performed By: #### V AGINT #### [facility] [address] [place] [address] Dr. Neil Krishnamurthy NEUT # 4.8 103/ul Normal 1.4-6.5 [facility] Comment on above: Performed By: #### V AGINT #### [facility] [address] [place] [address] Dr. Neil Krishnamurthy Neutrophils/100 WBC (Bld) 56.3 % Normal 43.0-75.0 [facility] Comment on above: Performed By: #### V AGINT #### [facility] [address] [place] [address] Dr. Neil Krishnamurthy Platelet mean volume (Bld) [Entitic vol] 11.0 fL Normal 9.5-13.5 [facility] Comment on above: Performed By: #### V AGINT #### [facility] [address] [place] [address] Dr. Neil Krishnamurthy PLT 242 103/ul Normal 150-450 [facility] Comment on above: Performed By: #### V AGINT #### [facility] [address] [place] [address] Dr. Neil Krishnamurthy RBC 4.50 106/ul Normal 4.20-5.40 [facility] Comment on above: Performed By: #### V AGINT #### [facility] [address] [place] [address] Dr. Neil Krishnamurthy WBC 8.5 103/ul Normal 4.0-11.0 [facility] Comment on above: Performed By: #### V AGINT #### [facility] [address] [place] [address] Dr. Neil Krishnamurthy GLYCOHEMOGLOBIN A1Con 2021 ADA RECOMMENDATION SEE BELOW Normal [facility] Comment on above: Result Comment: ADA RECOMMENDED LIMIT 4.0 - 6.0 ADA THERAPEUTIC TARGET < 7.0 ACTION SUGGESTED > 7.0 Performed By: #### V AGINT #### [facility] [address] [place] [address] Dr. Neil Krishnamurthy Glucose [Mass/Vol] 97 mg/dL Normal [facility] Comment on above: Performed By: #### V AGINT #### [facility] [address] [place] [address] Dr. Neil Krishnamurthy HbA1c (Bld) [Mass fraction] 5.0 % Normal 4.5-6.2 [facility] Comment on above: Performed By: #### V AGINT #### [facility] [address] [place] [address] Dr. Neil Krishnamurthy LIPID PROFILEon 07-13-2022 CHOL-HDL RATIO NORM SEE BELOW Normal [facility] Comment on above: Result Comment: 3.3 - 4.4 LOW RISK 4.4 - 7.1 AVERAGE RISK 7.1 - 11.0 MODERATE RISK >11.0 HIGH RISK Performed By: #### O X24HR #### [facility] [address] [place] [address] Dr. Neil Krishnamurthy Cholesterol [Mass/Vol] 157 mg/dL Normal <=200 [facility] Comment on above: Performed By: #### O X24HR #### [facility] [address] [place] [address] Dr. Neil Krishnamurthy Cholesterol in HDL [Mass/Vol] 50 mg/dL Normal 40-60 [facility] Comment on above: Performed By: #### O X24HR #### [facility] [address] [address] [address] Neil Krishnamurthy Cholesterol in LDL [Mass/Vol] 79.4 mg/dL Normal [facility] Comment on above: Performed By: #### O X24HR #### [facility] [address] [place] [address] Dr. Neil Krishnamurthy Cholesterol.total/C holesterol in HDL [Mass ratio] 3.1 {ratio} Normal [facility] Comment on above: Performed By: #### O X24HR #### [facility] [address] [address] [address] Neil Krishnamurthy HDL NORMAL > or = 60 mg/dl - LO W CARDIOVASCULAR RISK <40 mg/dl - HIGH CARDIOVASCULAR RISK Normal [facility] Comment on above: Performed By: #### O X24HR #### [facility] [address] [address] [address] Neil Krishnamurthy LDL CALC NORMAL SEE BELOW Normal [facility] Comment on above: Result Comment: <100 mg/dl OPTIMAL 100 - 129 mg/dl NEAR OR ABOVE OPTIMAL 130 - 159 mg/dl BORDERLINE HIGH 160 - 189 mg/dl HIGH >190 mg/dl VERY HIGH Performed By: #### O X24HR #### [facility] [address] [address] [address] Neil Krishnamurthy Triglyceride [Mass/Vol] 138 mg/dL Normal <=150 [facility] Comment on above: Performed By: #### O X24HR #### [facility] [address] [address] [address] Neil Krishnamurthy VLDL CALC 27.6 mg/dL Normal [facility] Comment on above: Performed By: #### O X24HR #### [facility] [address] [address] [address] Neil Krishnamurthy LIVER PROFILEon 07-13-2022 Albumin [Mass/Vol] 3.5 g/dL Normal 3.4-5.0 [facility] Comment on above: Performed By: #### O X24HR #### [facility] [address] [address] [address] Neil Krishnamurthy Albumin/Globulin [Mass ratio] 1.0 {ratio} Normal [facility] Comment on above: Performed By: #### O X24HR #### [facility] [address] [address] [address] Neil Krishnamurthy ALP [Catalytic activity/Vol] 83 U/L Normal 46-116 [facility] Comment on above: Performed By: #### O X24HR #### [facility] [address] [address] [address] Neil Krishnamurthy ALT [Catalytic activity/Vol] 19 U/L Normal 14-59 [facility] Comment on above: Performed By: #### O X24HR #### [facility] [address] [place] [address] Dr. Neil Krishnamurthy AST [Catalytic activity/Vol] 15 U/L Normal 15-37 [facility] Comment on above: Performed By: #### O X24HR #### [facility] [address] [place] [address] Dr. Neil Krishnamurthy BILI, CONJUGATED 0.1 mg/dL Normal 0.0-0.2 [facility] Comment on above: Performed By: #### O X24HR #### [facility] [address] [place] [address] Dr. Neil Krishnamurthy Bilirubin [Mass/Vol] 0.6 mg/dL Normal 0.2-1.0 [facility] Comment on above: Performed By: #### O X24HR #### [facility] [address] [place] [address] Dr. Neil Krishnamurthy Globulin (S) [Mass/Vol] 3.5 g/dL Normal [facility] Comment on above: Performed By: #### O X24HR #### [facility] [address] [place] [address] Dr. Neil Krishnamurthy Protein [Mass/Vol] 7.0 g/dL Normal 6.4-8.2 [facility] Comment on above: Performed By: #### O X24HR #### [facility] [address] [place] [address] Dr. Neil Krishnamurthy PROF CHEM 8 (BAS METB)on Anion gap [Moles/Vol] 10.8 mmol/L Normal [facility] Comment on above: Performed By: #### O X24HR #### [facility] [address] [place] [address] Dr. Neil Krishnamurthy Calcium [Mass/Vol] 8.2 mg/dL Critically low 8.5-10.1 [facility] Comment on above: Performed By: #### O X24HR #### [facility] [address] [address] [address] Neil Krishnamurthy Chloride [Moles/Vol] 105 mmol/L Normal 98-107 [facility] Comment on above: Performed By: #### O X24HR #### [facility] [address] [address] [address] Neil Krishnamurthy CO2 [Moles/Vol] 24.5 mmol/L Normal 21.0-32.[address] [facility] Comment on above: Performed By: #### O X24HR #### [facility] [address] [address] [address] Neil Krishnamurthy Creatinine [Mass/Vol] 0.74 mg/dL Normal 0.55-1.02 [facility] Comment on above: Performed By: #### O X24HR #### [facility] [address] [place] [address] Dr. Neil Krishnamurthy EGFR-AF BULGARIAN >60 Normal >=[address] [facility] Comment on above: Performed By: #### O X24HR #### [facility] [address] [address] [address] Neil Krishnamurthy EGFR-NON AF BULGARIAN >60 Normal >=60 [facility] Comment on above: Performed By: #### O X24HR #### [facility] [address] [address] [address] Neil Krishnamurthy Glucose [Mass/Vol] 106 mg/dL Normal 74-106 [facility] Comment on above: Performed By: #### O X24HR #### [facility] [address] [address] [address] Neil Krishnamurthy Potassium [Moles/Vol] 3.5 mmol/L Normal 3.5-5.1 [facility] Comment on above: Performed By: #### O X24HR #### [facility] [address] [address] [address] Neil Krishnamurthy Sodium [Moles/Vol] 137 mmol/L Normal 136-145 [facility] Comment on above: Performed By: #### O X24HR #### [facility] [address] [place] [address] Dr. Neil Krishnamurthy Urea nitrogen [Mass/Vol] 11.0 mg/dL Normal 7.0-18.0 [facility] Comment on above: Performed By: #### O X24HR #### [facility] [address] [place] [address] Dr. Neil Krishnamurthy Urea nitrogen/Creatinine [Mass ratio] 14.8 mg/mg Normal [facility] Comment on above: Performed By: #### O X24HR #### [facility] [address] [place] [address] Dr. Neil Krishnamurthy TSHon 07-13-2022 TSH 1.166 uIU/mL Normal 0.358-3.740 [facility] Comment on above: Performed By: #### O X24HR #### [facility] [address] [place] [address] Dr. Neil Krishnamurthy VITAMIN D 25 OHon 07-13-2022 VIT D 25-OH 23.8 ng/mL Normal [facility] Comment on above: Performed By: #### V ITAD #### [facility] [address] [place] [address] Dr. Neil Krishnamurthy VIT D RANGES SEE BELOW Normal [facility] Comment on above: Result Comment: <20 ng/mL Vit D deficient 20 - <30 ng/mL Vit D insufficient 30 - 100 ng/mL Vit D sufficient >100 ng/mL Potential Toxicity Performed By: #### V ITAD #### [facility] [address] [place] [address] Dr. Neil Krishnamurthy MG MAMM SCREEN 3D MARKEL CADon 06-23-2022 MG MAMM SCREEN 3D MARKEL CAD Patient: LUL BRITTON Exam Date: 06/23/2022 : 1985 Gender:F Ordering : DR KATHY BARRAGAN . Admission #: [id number] Family : Order #: [id number] CLICK HERE TO VIEW EXAM RADIOLOGY REPORT [...] cervical cancer at age 31. LOCATION: [facility] BREAST COMPOSITION: Heterogeneously dense,which may obscure [...] Quezada MD on 06/23/2022 at 11:17 Normal [facility] PAP ACOG PANEL 2: 30 to 65on 06-16-2022 . . Normal [facility] Comment on above: Result Comment: Perf ormed at: WB Performed By: #### C O2, CL, BUN, CREA, URIC, K, CA, NA #### [facility] [address] [address] [address] Neil Krishnamurthy Age Gdln ACOG Testing 30-65 Normal [facility] Comment on above: Performed By: #### C O2, CL, BUN, CREA, URIC, K, CA, NA #### [facility] [address] [place], [place] [address] Dr. Neil Krishnamurthy DIAGNOSIS: Comment Normal [facility] Comment on above: Result Comment: NEGA TIVE FOR INTRAEPITHELIAL LESION OR MALIGNANCY. Performed at: WB Performed By: #### C O2, CL, BUN, CREA, URIC, K, CA, NA #### [facility] [address] [place], [place] [address] Dr. Neil Krishnamurthy HPV Aptima Negative Normal Negative [facility] Comment on above: Result Comment: This nucleic acid amplification test detects fourteen high-risk HPV types (16,18,31,33,35,39,45,51,52,56,58,59,66,68) without differentiation. Performed at: =G Performed By: #### C O2, CL, BUN, CREA, URIC, K, CA, NA #### [facility] [address] [address] [address] Neil Krishnamurthy Methodology: Comment Normal [facility] Comment on above: Result Comment: This liquid based ThinPrep(R) pap test was screened with the use of an image guided system. Performed at: WB Performed By: #### C O2, CL, BUN, CREA, URIC, K, CA, NA #### [facility] [address] [address] [address] Neil Krishnamurthy Note: Comment Normal [facility] Comment on above: Result Comment: The [...] BUN, CREA, URIC, K, CA, NA #### [facility] [address] [place] [address] Dr. Neil Krishnamurthy Performed by: Comment Normal [facility] Comment on above: Result Comment: Fang Song, Drive Man (ASCP) Performed at: WB Performed By: #### C O2, CL, BUN, CREA, URIC, K, CA, NA #### [facility] [address] [address] [address] Neil Krishnamurthy Specimen adequacy: Comment Normal [facility] Comment on above: Result Comment: Sati sfactory for evaluation. Endocervical and/or squamous metaplastic cells (endocervical component) are present. Performed at: WB Performed By: #### C O2, CL, BUN, CREA, URIC, K, CA, NA #### [facility] [address] [address] [address] Neil Krishnamurthy VAGINITIS/VAGINOSIS DNA PROB Jovi 06-03-2022 Rachel species Negative Normal Negative [facility] Comment on above: Performed By: #### V AGINT #### [facility] [address] [address] [address] Neil Krishnamurthy Gardnerella vaginalis Positive Abnormal Negative [facility] Comment on above: Performed By: #### V AGINT #### [facility] [address] [address] [address] Neil Krishnamurthy Trichomonas vaginalis Negative Normal Negative [facility] Comment on above: Performed By: #### V AGINT #### [facility] [address] [address] [address] Neil Krishnamurthy COVID Quick Testingon 2020 Result Positive [employer] Other XR ABDOMEN LIMITED (KUB)on XR ABDOMEN LIMITED (KUB) EXAMINATION:SUPINE VIEW(S) OF THE BFVXMPR6807/08/2017 1:38 pmCOMPARISON:October 19, 2010HISTORY:ORDERING SYSTEM PROVIDED HISTORY: [...] by:TIMBO Menendezigned by:Raheel Morales MD07/08/17Final result Normal [facility] Vital Signs Date Time Vital Sign Value Performing Clinician Facility 07-30-2024 15:48-0500 Blood Pressure Location Anna JERR[facility] 07-30-2024 15:48-0500 Diastolic blood pressure 95 mm[Hg] [facility] 07-30-2024 15:48-0500 Heart rate 79 /min Anna J[facility] 07-30-2024 15:48-0500 Respiratory rate 18 /min Anna JERR[facility] 11-11-2024 15:48-0500 Systolic blood pressure 128 mm[Hg] [facility] 07-05-2024 11:45-0400 Body height 152.4 cm Kirby Alberto MD Work Phone: [facility] 07-05-2024 11:45-0400 Body mass index (BMI) [Ratio] 44.72 kg/m2 Kirby Alberto MD Work Phone: [facility] 07-05-2024 11:45-0400 Body temperature 97.81 [degF] Kirby Alberto MD Work Phone: [facility] 07-05-2024 11:45-0400 Body weight 103.87 kg Kirby Alberto MD Work Phone: [facility] 07-05-2024 11:45-0400 Diastolic blood pressure 78 mm[Hg] Kirby Alberto MD Work Phone: [facility] 07-05-2024 11:45-0400 Heart rate 97 /min Kirby Alberto MD Work Phone: [facility] 07-05-2024 11:45-0400 Respiratory rate 20 /min Kirby Alberto MD Work Phone: [facility] 07-05-2024 11:45-0400 SaO2% (BldA) [Mass fraction] 98 % Kirby Alberto MD Work Phone: [facility] 07-05-2024 11:45-0400 Systolic blood pressure 136 mm[Hg] Kirby Alberto MD Work Phone: [facility] 06-05-2024 15:15-0400 Body height 152.4 cm Kirby Alberto MD Work Phone: [facility] 06-05-2024 15:15-0400 Body mass index (BMI) [Ratio] 45.5 kg/m2 Kirby Alberto MD Work Phone: [facility] 06-05-2024 15:15-0400 Body temperature 97.81 [degF] Kirby Alberto MD Work Phone: [facility] 06-05-2024 15:15-0400 Body weight 105.69 kg Kirby Alberto MD Work Phone: [facility] 06-05-2024 15:15-0400 Diastolic blood pressure 78 mm[Hg] Kirby Alberto MD Work Phone: [facility] 06-05-2024 15:15-0400 Heart rate 102 /min Kirby Alberto MD Work Phone: [facility] 06-05-2024 15:15-0400 Respiratory rate 20 /min Kirby Alberto MD Work Phone: [facility] 06-05-2024 15:15-0400 SaO2% (BldA) [Mass fraction] 98 % Kirby Alberto MD Work Phone: [facility] 06-05-2024 15:15-0400 Systolic blood pressure 130 mm[Hg] Kirby Alberto MD Work Phone: [facility] 03-15-2024 12:31-0400 Body height 152.4 cm Jarred Phillips MD Work Phone: [facility] 03-15-2024 12:31-0400 Body mass index (BMI) [Ratio] 42.46 kg/m2 Jarred Phillips MD Work Phone: [facility] 03-15-2024 12:31-0400 Body weight 98.61 kg Jarred Phillips MD Work Phone: [facility] 09-22-2023 12:00-0500 Body height 152.4 cm Elisabeth Ma Other [employer] Other 09-22-2023 12:00-0500 Body mass index (BMI) [Ratio] 41.87 kg/m2 Elisabeth Ma Other [employer] Other 09-22-2023 12:00-0500 Body temperature 97.7 [degF] Elisabeth Ma Other [employer] Other 09-22-2023 12:00-0500 Body weight 97.25 kg Elisabeth Ma Other [employer] Other 09-22-2023 12:00-0500 Diastolic blood pressure 86 mm[Hg] Elisabeth Ma Other [employer] Other 09-22-2023 12:00-0500 Respiratory rate 18 /min Elisabeth Ma Other [employer] Other 09-22-2023 12:00-0500 SaO2% (BldA) [Mass fraction] 99 % Elisabeth Ma Other [employer] Other 09-22-2023 12:00-0500 Systolic blood pressure 124 mm[Hg] Elisabeth Anil Other [employer] Other 03-06-2023 13:50-0400 Body height 152.4 cm Leana Soler Other [employer] Other 03-06-2023 13:50-0400 Body mass index (BMI) [Ratio] 42.3 kg/m2 Leana Soler Other [employer] Other 03-06-2023 13:50-0400 Body temperature 98.2 [degF] Leana Soler Other [employer] Other 03-06-2023 13:50-0400 Body weight 98.25 kg Leana Soler Other [employer] Other 03-06-2023 13:50-0400 Diastolic blood pressure 76 mm[Hg] Leana Soler Other [employer] Other 03-06-2023 13:50-0400 Respiratory rate 18 /min Leana Khanley Other [employer] Other 03-06-2023 13:50-0400 SaO2% (BldA) [Mass fraction] 100 % Leana Khanley Other [employer] Other 03-06-2023 13:50-0400 Systolic blood pressure 111 mm[Hg] Leana Soler Other [employer] Other 09-01-2022 17:15-0500 Body height 152.4 cm Jennyfer Ruiz Other [employer] Other 09-01-2022 17:15-0500 Body mass index (BMI) [Ratio] 41.98 kg/m2 Jennyfer Maravillamond Other [employer] Other 09-01-2022 17:15-0500 Body temperature 98.4 [degF] Jennyfer Ruiz Other [employer] Other 09-01-2022 17:15-0500 Body weight 97.52 kg Jennyfer Maravillamond Other [employer] Other 09-01-2022 17:15-0500 Respiratory rate 18 /min Jennyfer Maravillamond Other [employer] Other 09-01-2022 17:15-0500 SaO2% (BldA) [Mass fraction] 99 % Jennyfer Maravillamond Other [employer] Other 04-22-2022 14:30-0400 Body height 152.4 cm Jessenia Ortiz Other [employer] Other 04-22-2022 14:30-0400 Body mass index (BMI) [Ratio] 40.42 kg/m2 Jessenia Ortiz Other [employer] Other 04-22-2022 14:30-0400 Body weight 93.9 kg Jessenia Ortiz Other [employer] Other 04-22-2022 14:30-0400 Diastolic blood pressure 89 mm[Hg] Jessenia Ortiz Other [employer] Other 04-22-2022 14:30-0400 Respiratory rate 18 /min Jessenia Ortiz Other [employer] Other 04-22-2022 14:30-0400 SaO2% (BldA) [Mass fraction] 100 % Jessenia Ortiz Other [employer] Other 04-22-2022 14:30-0400 Systolic blood pressure 116 mm[Hg] Jessenia Ortiz Other [employer] Other 07-22-2021 11:00-0400 Body height 152.4 cm Jennyfer Maravillamond Other [employer] Other 07-22-2021 11:00-0400 Body mass index (BMI) [Ratio] 38.08 kg/m2 Jennyfer Sara Other [employer] Other 07-22-2021 11:00-0400 Body temperature 96.2 [degF] Jennyfer Sara Other [employer] Other 07-22-2021 11:00-0400 Body weight 88.45 kg Jennyfer Ruiz Other [employer] Other 07-22-2021 11:00-0400 Respiratory rate 18 /min Jennyfer Ruiz Other [employer] Other 07-22-2021 11:00-0400 SaO2% (BldA) [Mass fraction] 99 % Jennyfer Ruiz Other [employer] Other Encounters Encounter Date Encounter Type Care Provider Facility Start: 07-29-2025 ambulatory Anna JERRY Facili ty:[facility] Start: 08-02-2024 End: 08-02-2024 Refill Kirby Alberto MD Work Phone: [facility] Comment on above: Obstructive sleep ap beatriz (adult) (pediatric) Start: 07-30-2024 End: 07-30-2024 ambulatory Anna JERRY Facility:[facility] Start: 07-30-2024 End: 07-30-2024 Patient encounter procedure Anna JERRY [facility] Start: 07-05-2024 End: 07-05-2024 Bamboo flowsheet Kirby Alberto MD Work Phone: [facility] Start: 07-05-2024 End: 07-05-2024 Bambovasquez flowssera Alberto MD Work Phone: [facility] Start: 07-05-2024 End: 07-05-2024 Office outpatient visit 15 minutes Kirby Alberto MD Work Phone: [facility] Comment on above: Acute bronchitis due to other specified organisms (Primary Dx) Start: 07-05-2024 End: 07-05-2024 ambulatory KIRBY ALBERTO Not Available Start: 06-18-2024 End: 06-18-2024 ambulatory Joanne Cameron MD Facility: [facility] Start: 06-05-2024 End: 06-05-2024 Office outpatient visit 25 minutes Kirby Alberto MD Work Phone: [facility] Comment on above: Obstructive sleep ap beatriz (adult) (pediatric) (Primary Dx); Generalized anxiety disorder (CMS/HCC); Migraine without aura and without status migrainosus, not intractable (CMS/HCC); Bilateral leg edema; Thoracic spondyloarthritis Start: 06-05-2024 End: 06-05-2024 ambulatory KIRBY ALBERTO [facility] Comment on above: Obstructive sleep ap beatriz (adult) (pediatric) Start: 06-04-2024 End: 06-04-2024 ambulatory Joanne Cameron MD Facility: [facility] Start: 05-14-2024 End: 05-14-[address] [facility] Start: 05-07-2024 End: 05-07-2024 ambulatory [facility] Start: 04-16-2024 End: 04-16-2024 ambulatory Joanne Cameron MD Facility: [facility] Start: 03-26-2024 End: 03-26-2024 ambulatory KIRBY ALBERTO Not Available Start: 03-15-2024 End: 03-15-2024 Office consultation new/estab patient 40 min Jarred Phillips MD Work Phone: [facility] Comment on above: Nasal deformity (Evette milton Dx); Deviated nasal septum; Nasal congestion; Nasal obstruction; Hypertrophy of inferior nasal turbinate; Deviated septum; Facial pressure; Difficulty breathing Start: 03-15-2024 End: 03-15-20[facility] Start: 02-21-2024 End: 02-21-2024 ambulatory YOVANI Chen TIMMIS Not Available Start: 02-17-2024 End: 02-17-2024 ambulatory Yovani H Timmis Facility:[facility] Start: 02-17-2024 End: 02-17-2024 Patient encounter procedure Yovani Morales [facility] Start: 01-16-2024 End: 01-16-2024 ambulatory YOVANI MORALES Not Available Start: 12-20-2023 End: 12-20-2023 ambulatory KIRBY ALBERTO Not Available Start: 10-04-2023 End: 10-04-2023 ambulatory KIRBY ALBERTO Not Available Start: 09-22-2023 End: 09-22-2023 ambulatory Elisabeth Ma Other [employer] Other Start: 09-22-2023 Office outpatient vi sit 15 minutes Elisabeth Ma [facility] Start: 09-05-2023 End: 09-05-2023 [facility] Start: 08-15-2023 End: 08-15-2023 [facility]ulatory [facility] Start: 07-05-2023 End: 07-05-2023 Patient encounter procedure CHARLOTTE SCALES [facility] Start: 03-06-2023 End: 03-06-2023 Patient encounter procedure KEN Soler Work Phone: [facility] Work Phone: Start: 03-06-2023 End: 03-06-2023 ambulatory Leana Humphries Karlene [employer] Other Start: 03-06-2023 Office outpatient vi sit [...] encounter procedure Anna JERRY [facility] Start: 10-02-2022 End: 10-03-[address] ANNA JERRY . Facility:[facility] Start: 09-01-2022 End: 09-01-2022 ambulatory Jennyfer Ruiz Other [employer] Other Start: 09-01-2022 Office outpatient vi sit 15 minutes Jennyfer Ruiz [facility] Start: 08-27-2022 End: 08-28-[address] RIC QUEZADA Facility:[facility] Start: 07-18-2022 Encounter for genera l adult medical examination without abnormal findings DR KIRBY ALBERTO [facility] Start: 07-13-2022 End: 2022 ambulatory [...] 04-22-2022 End: 04-22-2022 ambulatory Jessenia Ortiz Other [employer] Other Start: 04-22-2022 Office outpatient vi sit 15 minutes Jessenia Ortiz [facility] Start: 07-22-2021 End: 07-22-2021 ambulatory Jennyfer Ruiz Other [place] [facility] Other Start: 07-22-2021 Office outpatient vi sit 15 minutes Jennyfer Ruiz [facility] Start: 07-08-2017 End: 07-09-2017 Ambulatory MINGO SCHUMACHER [facility] Procedures Date Procedure Procedure Detail Performing Clinician Start: 06-18-2024 Procedure on back Patri jasvir JERRY Start: 06-04-2024 Procedure on back Patri jasvir JERRY Start: 05-07-2024 Nasal septoplasty Patri jasvir JERRY Start: 05-07-2024 Nose - repair or liset stic operation Anna JERRY Start: 03-06-2023 X-ray of left foot [employer] Leana Soler Work Phone: Start: 07-08-2017 X-ray exam of abdomen Quintin SCHUMACHER Appendectomy Anna JERRY Cholecystectomy Anna KAISER Colonoscopy Annaissa JERRY Hernia of abdominal cavity (disorder) Annaissa JERRY Ligation of fallopian tube P sabrina JERRY Lithotripsy Annaissa JERRY Plan of Treatment Date Care Activity Detail Author Start: 2036 Zoster Vaccines (1 o f 2) Zoster Vaccines (1 of 2) [facility] Start: 09-25-2024 End: 09-25-2024 Patient encounter procedure 09/25/2024 3:30 PM EST Office Visit [facility] [address] [place] [phone] Kirby Alberto MD [address] [place] [phone] [facility] Start: 07-05-2024 End: 07-05-2024 Patient encounter procedure 07/05/2024 11:45 AM EDT Office Visit [facility] [address] [place] [phone] Kirby Alberto MD [address] [place] [phone] Arrived [facility] Comment on above: Arrived Start: 06-05-2024 End: 06-05-2024 Patient encounter procedure 06/05/2024 3:00 PM EDT Office Visit [facility] [address] [place] [address] Kirby Alberto MD [address] [place] [phone] [facility] Start: 05-20-2024 Influenza vaccination N [facility] Start: 05-07-2024 Subsequent hospital visit by physician 05/07/2024 Hospital Encounter [facility] OR [address] [place] [address] [place] [address] [place] [address] [facility] OR Start: 05-20-2023 COVID-19 Vaccine ( season) COVID-19 Vaccine ( season) [facility] Start: 05-11-2020 DTaP/Tdap/Td Vaccine s (3 - Td or Tdap) DTaP/Tdap/Td Vaccines (3 - Td or Tdap) [facility] Start: 2016 Screening for malign ant neoplasm of cervix [facility] Start: 2007 Screening for malign ant neoplasm of cervix [facility] Start: 2004 Diabetes mellitus screening Diabetes Screening [facility] Start: 2004 Hepatitis C screening Hepatitis C [facility] Start: 1986 HIV screening HIV Screening [facility] Start: 1986 Lipid panel Lipid Panel [facility] Start: 1986 Yearly Adult Physical Yearly Adult P [facility] Septoplasty/submucou s resecj w/wo cartilage grf Repair Septum Nasal Cavity with Reduction Turbinate Deviated nasal septum Nasal congestion Nasal turbinate hypertrophy Nasal deformity [facility] Immunizations Immunization Date Immunization Notes Care Provider Fa wendi 05-11-2010 tetanus toxoid, redu jose juan diphtheria toxoid, and acellular pertussis vaccine, adsorbed Anna JERRY [facility] 01-10-2007 varicella virus vaccine Patr jorje JERRY [facility] 12-07-2006 varicella virus vaccine Patr jorje JERRY [facility] 04-25-2006 hepatitis B vaccine, pediatric or pediatric/adolescent dosage Anna JERRY [facility] 12-20-2005 hepatitis B vaccine, pediatric or pediatric/adolescent dosage Anna JERRY [facility] 11-15-2005 hepatitis B vaccine, pediatric or pediatric/adolescent dosage Anna JERRY [facility] 03-10-1999 diphtheria, tetanus toxoids and acellular pertussis vaccine, unspecified formulation Kirby Alberto MD Work Phone: [facility] 03-10-1999 DTaP, unspecified formulation Anna JERRY [facility] 03-10-1999 measles, mumps and rubella virus vaccine Anna JERRY [facility] Payers Date Payer Category Payer Self-pay 2022 Medicaid [id number] 2022 Unknown 2020 Private Health Insurance [id number] 2017 Unknown [id number] 2.1 [id number] 1986 Unknown [id number] 2.16.84 0.1.466520.3.579.2.593 1986 Unknown [id number] 2.16.84 0.1.545164.3.579.2.593 1986 Unknown [id number] 2.16.84 0.1.627514.3.579.2.593 1986 Unknown [id number] 2.16.84 0.1.454437.3.579.2.593 1986 Unknown [id number] 2.16.84 0.1.602047.3.579.2.593 1986 Unknown [id number] 2.16.84 0.1.729504.3.579.2.593 1986 Unknown [id number] 2.16.84 0.1.837572.3.579.2.593 1986 Unknown [id number] 2.16.84 0.1.419506.3.579.2.593 1986 Unknown [id number] 2.16.84 0.1.305784.3.579.2.593 1986 Unknown [id number] 2.16.84 0.1.726674.3.579.2.593 1986 Unknown [id number] 2.16.84 0.1.378006.3.579.2.593 1986 Unknown [id number] 2.16.84 0.1.824866.3.579.2.1259 1986 Unknown [id number] 2.16.84 0.1.398441.3.579.2.1259 1986 Unknown [id number] 2.16.84 0.1.958152.3.579.2.1259 1986 Unknown [id number] 2.16.84 0.1.199131.3.579.2.1259 1986 Unknown [id number] 2.16.84 0.1.132111.3.579.2.1259 1986 Unknown [id number] 2.16.8 40.1.032235.3.579.2.1244 1986 Unknown [id number] 2.16.8 40.1.053583.3.579.2.1244 1986 Unknown [id number] 2.16.8 40.1.838811.3.579.2.1245 1986 Unknown [id number] 2.16. 840.1.013608.3.579.2.196 1986 Unknown [id number] 2.16. 840.1.787371.3.579.2.196 1986 Unknown [id number] 2.16. 840.1.673565.3.579.2.196 1986 Unknown [id number] 2.16. 840.1.777102.3.579.2.196 1986 Unknown [id number] 2.16. 840.1.220525.3.579.2.196 1986 Unknown [id number] 2.16.84 0.1.254762.3.579.2.1259 1986 Unknown [id number] 2.16.84 0.1.295562.3.579.2.1259 1986 Unknown [id number] 2.16.8 40.1.660296.3.579.2.727 1986 Unknown [id number] 2.16.8 40.1.269649.3.579.2.727 1986 Unknown [id number] 2.16.8 40.1.817075.3.579.2.727 1959 Unknown [id number] 1959 Unknown [id number] 2.1 6.840.1.142876.19 1959 Unknown [id number] Unknown [id number] 2.16.8 40.1.893700.19 Unknown [id number] 2.16.8 40.1.218819.3.579.2.531 Social History Date Type Detail Facility Unknown if ever smoked [employer] Other Start: 09-27-2023 End: 03-15-2024 Sex Assigned At [place] Start: 10-04-2022 End: 03-15-2024 Tobacco smoking status Never smoked tobacco (finding) [facility] Start: 1985 Sex Assigned At Female [facility] Start: 10-04-2023 Tobacco smoking status NHIS Ex-smoker [facility] History of tobacco use Current smoker [facility] History of tobacco use Cigarette Smoker [facility] Start: 10-04-2023 End: 03-15-2024 Cigarettes smoked current (pack per day) - Reported 0.3 [facility] Start: 10-04-2023 Tobacco use and exposure Smokeless tobacco non-user [facility] Start: 03-26-2024 End: 06-05-2024 Alcoholic beverage intake Lifetime non-drinker (finding) [facility] [...] more. Never true [facility] Start: 09-29-2023 End: 03-15-2024 Tobacco Comment Vape [facility] Work Phone: Start: 1985 Sex assigned at Not on file [facility] Work Phone: Tobacco Vape Tobacco Use :. Current vaping or e-cigarette use Smokeless Tobacco Use:. Vaping [facility] Tobacco smoking status No Smokin g Status Entered [facility] Start: 03-15-2024 Tobacco use and exposure User of smokeless tobacco [facility] Work Phone: Start: 03-15-2024 Alcoholic beverage intake Ex-drinker (finding) [facility] Work Phone: Start: 03-05-2024 End: 03-15-2024 Exposure to SARS-CoV-2 (event) Not sure [facility] Functional Status Date Assessment Result Facility 07-30-2024 Functional Status N/A [facility] 07-05-2023 Functional Status N/A [facility] 10-04-2022 Functional Status N/A [facility] Clinical Notes 07-22-2021 to 07-30-2024 Kirby Alberto MD - 07/05/2024 12:01 PM Black Alberto MD - 07/05/2024 11:45 AM Black Alberto MD - 06/05/2024 3:30 PM Black Alberto MD - 06/05/2024 3:30 PM EDT Note Date & Type Note Facility 07-30-2024 Hospital Discharge instructions Patient Education 07/30/2024 16:57:16 Dietary Guidelines [...] include: ?8 oz (237 mL) of milk, qndntgc-yireprdjdznr-xfnwx milk, and calcium-fortifiedfruit juice. Calcium-fortified means that [...] ?Spinach (cooked), rhubarb, beets, sweet potatoes, and Dominican chard. ?Peanuts. ?Potato chips, polish fries, and baked potatoes with skin on. ?Nuts and nut products. ?Chocolate. If you regularly take a diuretic medicine, make sure to eat at least 1 or 2 servings of fruits or vegetables that are high in potassium each day. These include: ?Avocado. ?Banana. ?[place], prune, carrot, or tomato juice. ?Baked potato. [...] magnesium, fish oil, or vitamin B6. Take vqdj-dtq-hwcnqyb and prescription medicines only as told by [...] Casseroles. Pizza. Lasagna. Frozen meals. Potato chips. Omani fries. The items listed above may not [...] provider. Document Revised: 12/16/2022 Document Reviewed: 12/16/2022 Elsevier Patient Education 2023 [employer]. Follow Up Care 07/05/2023 15:47:59 With:CLARITZA JOHNSTON, ODILIA Murphy Address: [facility] [address], [place] [phone]- [phone] When: Unknown [facility] 07-30-2024 Note Patient Education Nephrology Dietary Guidelines [...] ? 8 oz (237 mL) of milk, zfaxbkd-iuxvsueoiwpo-zptbw milk, and calcium-fortifiedfruit juice. Calcium-fortified means that [...] Spinach (cooked), rhubarb, beets, sweet potatoes, and Dominican chard. ? Peanuts. ? Potato chips, polish fries, and baked potatoes with skin on. ? Nuts and nut products. ? Chocolate. ??? If you regularly take a diuretic medicine, make sure to eat at least 1 or 2 servings of fruits or vegetables that are high in potassium each day. These include: ? Avocado. ? Banana. ? [place], prune, carrot, or tomato juice. ? Baked [...] fish oil, or vitamin B6. ??? Take hwdi-ehn-lusswue and prescription medicines only as told by your health (more content not included)... [facility] 07-05-2024 History of Present illness Narrative Associated Problem(s): Acute bronchitis due [...] 50 MG tablet documented in this encounter [facility] 06-05-2024 History of Present illness Narrative Associated Problem(s): Thoracic spondyloarthritis Recent injection and follow with pain management. Associated Problem(s): Obstructive sleep apnea (adult) (pediatric) Fatigue improved with medication and continue adderall. Associated Problem(s): Migraine without aura and without status migrainosus, not intractable (CMS/HCC) GALLO stable and continue elavil. Use fioricet PRN. Associated Problem(s): Generalized anxiety disorder (CMS/HCC) Symptoms controlled with paxil and continue. Associated Problem(s): Bilateral leg edema Edema controlled with medication and continue. Elevate legs PRN. Images from the original note were not included. Subjective Patient ID: Lul Woody is a 38 y.o. female who presents for Follow-up (2 m). Follow up SHERRON, migraines, anxiety, and edema. Patient stable today. Worsening fatigue because pharmacies out of adderall and hasn't had medication for several weeks. Doing well with medication and more energy. Able to stay awake and overall less fatigue. Patient had surgery in April and doing well. Migraines stable. GALLO 2-3 times a month. Throbbing pain in entire head associated with photophobia, phonophobia and nausea. Using fioricet PRN and typically helps. Anxiety stable. Not as stressed out or overwhelmed. Not as nervous or worry as much. Not as herman or irritable. Edema controlled with medication. Mild swelling at end of day and if on feet a lot. Edema improved in am and with elevation. Back pain stable and had ablation yesterday. Review of Systems Respiratory: Negative for cough, shortness of breath and wheezing. Cardiovascular: Negative for chest pain and [...] Assessment/Plan Problem List Items Addressed This Visit Thoracic spondyloarthritis Recent injection and follow with pain management. Generalized anxiety disorder (CMS/HCC) Symptoms controlled with paxil and continue. Bilateral leg edema Edema controlled with medication and continue. Elevate legs PRN. Migraine without aura and without status migrainosus, not intractable (CMS/HCC) GALLO stable and continue elavil. Use fioricet PRN. Obstructive sleep apnea (adult) (pediatric) - Primary Fatigue improved with medication and continue adderall. Relevant Medications amphetamine-dextroamphetamine XR (Adderall XR) 20 MG 24 hr capsule documented in this encounter [facility] 03-15-2024 History of Present illness Narrative Images from the original note were not included. Facial Plastic & Reconstructive Surgery Reason for consult: Nasal obstruction Referring provider: TIN Zamora Chief Complaint: Obstructed breathing Constant, present year round, does not fluctuate. It affects the patients ability to sleep, exercise, and is troubling during the day. Symptoms began: Lifelong Nasal steroid or spray: Flonase didn't work, has attempted > 6 weeks without benefit Site of obstruction: L>R Previous Otolaryngology Provider: No Previous documentation for this patient was extensively reviewed including specific reasons for evaluation. Complex nature of complaint and medical issues prompting evaluation for surgical consideration by facial plastic & reconstructive surgeon. Previous surgery: No Trauma history: No Sleep apnea or snoring history: Both Allergic rhinitis, sinusitis history: Both, gets 1x / year sinus infx Smoking: Vapes, one vape per Aesthetic concern: No Past Medical History She has no past medical history on file. Surgical History She has no past surgical history on file. Social History She has no history on file for tobacco use, alcohol use, and drug use. Family History No family history on file. Allergies Patient has no allergy information on record. Physical exam General: Well-developed and well-nourished in appearance. Skin: No rashes or concerning lesions on the visible portions of the skin. Eyes: Extraocular movements intact. Visual coffey grossly normal. Ears: Pinna are normal in shape and position. External canals are patent. Oral Cavity/Oropharynx: Dentition is intact. Mucous membranes moist. No masses or lesions. Respiratory: No respiratory distress. Quiet breathing without stertor or stridor. Cardiovascular: Regular rate and rhythm. Warm extremities with equal pulses. Psych: Normal mood and affect. Judgement and insight appropriate. Neuro: Alert and oriented. CN II-XII grossly intact. No focal deficits. Musculoskeletal: Gait intact. Moves all extremities well without apparent deformities. A comprehensive facial exam was performed with the following highlights: Nasal skin type: Mod Internal exam: Septum: deviations present bl Inferior turbinates: hypertrophied Nasal valve angle: reduced bilaterally with lateral crural insufficiency, collapse of the ala Intranasal examination performed with limited view on anterior rhinoscopy. Procedures: Procedure: Rigid diagnostic nasal endoscopy Surgeon: Jarred Phillips MD Anesthesia: None Timeout: Performed Findings: A 0-degree rigid endoscope was passed through the patient's bilateral naris. The first pass was along the floor of the nose to the nasopharynx. The second pass was to the area of the middle meatus. The third pass was to the sphenoethmoidal recess. Septum: Deviation is S shaped with bilateral obstruction approximately 90% without perforations nor synechia. Internal Nasal Valve: Angle is reduced, narrowing the nasal airway bilaterally. Right nasal cavity: Inferior turbinate: 2+ Inferior meatus: Clear, no discharge, no polyps/masses/lesions Middle meatus: Clear, no discharge, no polyps/masses/lesions Left nasal cavity: Inferior turbinate: 2+ Inferior meatus: Clear, no discharge, no polyps/masses/lesions Middle meatus: Clear, no discharge, no polyps/masses/lesions Nasopharynx: Clear, no discharge, no masses/lesions Modified [place] Maneuver: Performed with a cotton tipped applicator, markedly improves breathing bilaterally. Assessment - This patient has a significant mechanical nasal obstruction. The cause is multifactorial with septal deviation with severe internal nasal valve narrowing, turbinate hypertrophy, and static internal nasal valve collapse. There is some dynamic nasal valve collapse as well. Correction of this nasal obstruction will require a septoplasty, repair of nasal valve collapse with structural grafting, and a bilateral turbinate reduction. We discussed the medical necessity of this at length, as well as the risks and limitations of the procedures. All questions were answered. Plan - Recommend septoplasty, nasal valve repair with structural grafting, and inferior turbinate reduction with lateralization. documented in this encounter [facility] Work Phone: 09-22-2023 Evaluation note Encounter Date Diagnosis Assessment Notes Sep, Dysuria (ICD-10 - R30.0) Discussed dipstick findings with patient. Advised patient that there is no evidence of acute UTI. Advised that this is likely related to stone. Recommended ER for further evaluation and workup. Patient verbalizes understanding and is agreeable with treatment plan [employer] Other 09-25-2023 Hospital Discharge instructions Patient Education [...] include: ?8 oz (237 mL) of milk, cjztqtp-mqgdwhsvdxen-saaia milk, and calcium- fortifiedfruit juice. Calcium-fortified means [...] ?Spinach (cooked), rhubarb, beets, sweet potatoes, and Dominican chard. ?Peanuts. ?Potato chips, polish fries, and baked potatoes with skin on. ?Nuts and nut products. ?Chocolate. If you regularly take a diuretic medicine, make sure to eat at least 1 or 2 servings of fruits or vegetables that are high in potassium each day. These include: ?Avocado. ?Banana. ?[place], prune, carrot, or tomato juice. ?Baked potato. [...] magnesium, fish oil, or vitamin B6. Take woet-dzm-mtrcjhf and prescription medicines only as told by [...] Casseroles. Pizza. Lasagna. Frozen meals. Potato chips. Omani fries. The items listed above may not [...] provider. Document Revised: 05/17/2022 Document Reviewed: 05/17/2022 Elsevier Patient Education 2022 [employer]. Follow Up Care 02/08/2023 16:17:30 With:YORDY WILLSON CHARLOTTE Genaro, URL Address: [address] [place] [address] [phone] When: Unknown Comments:2 yr w/ BOGDAN and QING [facility] Evaluation note* Encounter Date Diagnosis Assessment [...] fever. Patient verbalized understanding of treatment plan. [employer] Other 01-16-2023 Hospital Discharge instructions Patient Education [...] include: ?Spinach. ?Rhubarb. ?Beets. ?Potato chips and polish fries. ?Nuts. If you regularly take a diuretic medicine, make sure to eat at least 1 2 fruits or vegetables high in potassium each day. These include: ?Avocado. ?Banana. ?[place], prune, carrot, or tomato juice. ?Baked potato. [...] Casseroles. Pizza. Lasagna. Frozen meals. Potato chips. Omani fries. Summary You can reduce your risk [...] 12/31/2011 Document Revised: 12/26/2019 Document Reviewed: 08/16/2017 [employer] Patient Education 2020 [employer]. Follow Up Care 08/30/2022 15:20:43 With:CLARITZA JOHNSTON, Anna Lorenzana, URL Address: [facility] [address], [place] [address]- When: Unknown [facility] 12-14-2022 Evaluation note* Encounter Date Diagnosis [...] needed for cough or shortness of breath [employer] Other 08-04-2022 Evaluation note* Encounter Date Diagnosis [...] care provider if no improvement of symptoms. [employer] Other 11-03-2021 Evaluation note* Encounter Date Diagnosis [...] Patient care instructions given in writting by [facility] Care At Home document. [employer] Other Evaluation + Plan note Future Appointments Appointment Date:01/10/2023 03:15:00 PM Scheduled Provider:Anna JERRY MD Location:[facility] Appointment Type:URO Office Visit Diagnostic Tests Pending * Creatinine 10/04/22 [facility] evaluation + Plan note Future Appointments Appointment Date:07/10/2024 02:00:00 PM Scheduled Provider:CHARLOTTE SCALES PA-C Location:[facility] Appointment Type:URO Office Visit [facility] evaluation + Plan note Future Appointments Appointment Date:07/29/2025 09:45:00 AM Scheduled Provider:Anna JERRY MD Location:[facility] Appointment Type:URO Office Visit Diagnostic Tests Pending * Electrolyte Panel 07/30/24 [facility] evaluation noteNo assessment information available [facility] Work Phone: Evaluation note* Diagnosis Migraine without aura and without [...] organisms- Primary [facility] Diagnosis Migraine without aura and [...] apnea (adult) (pediatric) [facility] Diagnosis Obstructive sleep apnea (adult) (pediatric) [facility] Diagnosis Obstructive sleep apnea (adult) (pediatric)- Primary Generalized anxiety disorder (CMS/HCC) Generalized anxiety disorder Migraine without aura and without status migrainosus, not intractable (CMS/HCC) Bilateral leg edema Edema 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 [facility] Diagnosis Nasal deformity- Primary Acquired deformity of nose Deviated nasal septum Nasal congestion Other diseases of nasal cavity and sinuses Nasal obstruction Other diseases of nasal cavity and sinuses Hypertrophy of inferior nasal turbinate Deviated septum Deviated nasal septum Facial pressure Difficulty breathing Other dyspnea and respiratory abnormality Deviated nasal septum- Primary Nasal congestion Other diseases of nasal cavity and sinuses Nasal turbinate hypertrophy Hypertrophy of nasal turbinates Nasal deformity Acquired deformity of nose documented in this encounter [facility] Work Phone: History general Narrative - Reported* Type Description Date Medical History kidney stones Surgical History C section Surgical History appendectomy Surgical History cholecystectomy Surgical History hernia repair Surgical History lithotripsy Surgical History wisdom teeth extract Hospitalization History see above [employer] Other History general Narrative - Reported* Type Description Date Medical History kidney stones Medical History anxiety Medical History migraine headache Surgical History C section Surgical History appendectomy Surgical History cholecystectomy Surgical History hernia repair Surgical History lithotripsy Surgical History wisdom teeth extract Hospitalization History see above [employer] Other History general Narrative - Reported* Type Description Date Medical History kidney stones Medical History anxiety Medical History migraine headache Surgical History C section Surgical History appendectomy Surgical History cholecystectomy Surgical History hernia repair Surgical History lithotripsy Surgical History wisdom teeth extract Surgical History cortisone shots in back Hospitalization History see above [employer] Other Hospital course Narrative No data available for this section [facility] [place] [facility] Discharge instructions No data available for this section [facility] No data available for this section [facility] [address] Summary Purpose Family History No Family History [...] section and content) DATE CREATED AUTHOR 03/14/2018 [facility] DATE CREATED AUTHOR AUTHOR'S ORGANIZ ATION 01/19/[address] [facility] DATE CREATED AUTHOR AUTHOR'S ORGANIZ ATION 03/19/2023 [facility] DATE CREATED AUTHOR AUTHOR'S ORGANIZ ATION 04/03/2024 [facility] EPIC DATE CREATED AUTHOR AUTHOR'S ORGANIZ ATION 05/15/2024 [facility] DATE CREATED AUTHOR AUTHOR'S ORGANIZ ATION 06/21/2024 [facility] DATE CREATED AUTHOR AUTHOR'S ORGANIZ ATION 06/22/2024 [facility] DATE CREATED AUTHOR AUTHOR'S ORGANIZ ATION 07/08/2024 [facility] EPIC DATE CREATED AUTHOR AUTHOR'S ORGANIZ ATION 08/01/2024 [facility] REASON FOR VISIT (unrecogniz ed section and content) Reason Comments Follow-up Chest cold/cough Reason Onset Date Comments Med Refill 08/02/2024 Reason Onset Date Comments Med Refill 06/05/2024 Reason Comments Follow-up 2 m Reason Comments New Patient Visit Deviated Nasal Septum Patient Care team informatio n (unrecognized section and content) Team Status: Inactive Member Role Status Dates Leana Soler APRN Attending Provider Active Composition Roofer Relationship Specialty Start Date End Date Kirby Alberto MD [address] [place] [address] PCP - General Family Medicine 04/13/23 Milton Thayer MD [address] [place] [address] Family Medicine 04/13/23 Composition Roofer Relationship Specialty Start Date End Date Kirby Alberto MD [address] [place] [address] PCP - General Family Medicine 04/13/23 Milton Thayer MD [address] [facility] [place] [address] Family Medicine 04/13/23 Composition Roofer Relationship Specialty Start Date End Date Kirby Alberto MD [address] [place] [address] PCP - General Family Medicine 04/13/23 Milton Thayer MD [address] [facility] [place] [address] Family Medicine 04/13/23 Composition Roofer Relationship Specialty Start Date End Date Kirby Alberto MD [address] [place] [address] PCP - General Family Medicine 04/13/23 Milton Thayer MD [address] [facility] [place] [address] Family Medicine 04/13/23 Composition Roofer Relationship Specialty Start Date End Date Kirby Alberto MD [address] [place] [address] PCP - General Family Medicine 04/13/23 Milton Thayer MD [address] [facility] [place] [address] Family Medicine 04/13/23 Goals (unrecognized section and [...] ON THE PRIMARY CLINICAL RECORDS. [facility] [employer] [facility]. provides no warranty or guarantee of the accuracy or completeness of information in this document.
[2024-08-31 18:11] LABS: Anion Gap 10.9; Chloride 103 mmol/L (98-107); Potassium 3.9 mmol/L (3.5-5.1); Sodium 139 mmol/L (136-145)
== END 2024-08-31 15:40 | disposition home or self-care (01) ==
LOC: LAB 15:40
PROVIDERS: PCP Family Medicine; Visit Provider Urology
DX: Z79.899 Other long term (current) drug therapy (principal)
CPT/HCPCS: 36415; 80051

== ENCOUNTER 2024-09-06 15:08 | Outpatient (OUT) | payer OTHER, SELFPAY ==
--- NOTE | 2024-09-06 15:21 | P.CN_ITS ---
Consult Note: HPI Data of Consult Patient: known to practice within the last 3 years Consult date: 08/15/23 Requesting Physician: Charmaine Yates NP Primary Care Provider: Kirby Delong MD Consult Narrative Reason for consult: low back pain Narrative: 38yof who presents for evaluation of chronic bilateral low back pain and bilateral knee pain. pt underwent 6 weeks of PT with mild improvement. recent xray of bilateral knees were unremarkable, lumbar xray consistent with mild spondylosis. pt has failed tylenol, motrin, naproxen. shes now taking lodine 400mg BID, baclofen 10mg HS and amitriptyline 25mg HS with mild improvement. pain today 3/10 ache, increasing to 8/10 with bending, reaching, lifting, squating. denies numbness, tingling, weakness of BLE. no falls or injury. cc:: CC: Charmaine Yates NP Review of Systems ROS Status of ROS 10 or more systems reviewed and unremark able except as noted in history and below Musculoskeletal Reports: back pain, extremity pain and joint pain PFSH PFSH Medical History Arthritis ?M19.90 - Unspecified osteoarthritis, unspecified site (ICD-10) Acid reflux ?K21.9 - Gastro-esophageal reflux disease without esophagitis (ICD-10) Kidney stone ?N20.0 - Calculus of kidney (ICD-10) Sleep apnea ?G47.30 - Sleep apnea, unspecified (ICD-10) Heart murmur ?R01.1 - Cardiac murmur, unspecified (ICD-10) Surgical History History of lithotripsy ?Z98.890 - Other specified postprocedural states (ICD-10) History of tubal ligation ?Z98.51 - Tubal ligation status (ICD-10) Hx of cholecystectomy ?Z90.49 - Acquired absence of other specified parts of digestive tract (ICD- 10) History of umbilical hernia repair ?Z98.890 - Other specified postprocedural states (ICD-10) ?Z87.19 - Personal history of other diseases of the digestive system (ICD-10) History of appendectomy ?Z90.49 - Acquired absence of other specified parts of digestive tract (ICD- 10) H/O section ?Z98.891 - History of uterine scar from previous surgery (ICD-10) Meds Home Medications and Allergies Home Medications ?Medication ?Instructions ?Recorded ?Confirmed ?Type dextroamphetamine-amphetamine 20 40 mg PO DAILY 08/15/23 06/18/24 History mg tablet (Adderall) etodolac 400 mg tablet (Lodine) 400 mg PO BID 08/15/23 06/18/24 History paroxetine HCl 20 mg tablet (Paxil) 20 mg PO DAILY 08/15/23 06/18/24 History baclofen 10 mg tablet 10 mg PO DAILY 09/14/23 06/18/24 History amitriptyline 25 mg tablet mg 04/16/24 History cetirizine 5 mg-pseudoephedrine ER 1 tab PO .QD 06/04/24 06/18/24 History 120 mg tablet,extended release,12hr (All Day Allergy-D) cholecalciferol (vitamin D3) 50 06/04/24 History mcg (2,000 unit) tablet Allergies Allergy/AdvReac Type Severity Reaction Status Date / Time Penicillins Allergy Rash Verified 06/18/24 07:43 Exam Constitutional Documenting provider has reviewed patient's vital signs: yes Common normals: no apparent distress, oriented x3, healthy appearing, alert and well nourished General appearance: cooperative HENMT Common normals: normocephalic, hearing grossly normal bilaterally and moist oral mucous membranes Head and scalp: normocephalic Eye Common normals: PERRL Pupil: PERRL Neck & C-Spine Common normals: full ROM General: normal visual inspection Chest Common normals: inspection of chest normal Respiratory Common normals: normal respiratory effort, no retractions and no use of accessory muscles Back & Pelvis Thoracic spine/upper back: ROM not limited, no pain with ROM and no thoracic sp inal tenderness Lumbar spine/lower back: pain with ROM and straight leg raise negative bilaterally Sacroiliac joints: SI joint(s) abnormal Other: bilateral SIJ positive niecy(patricks), gaenslens, thigh thrust, compression test positive lumbar facet loading negative radiculopathy Extremity Right lower extremity: knee joint Left lower extremity: knee joint Other: bilateral knee pain, mild edema, mild crepitus, no instability noted. pain increased with medial and lateral stress testing Neuro Common normals: oriented x3, CN's II-XII intact bilaterally, moves all extremities, no focal motor deficits, no sensory deficits noted and deep tendon reflexes 2+ bilaterally Sensorium/orientation: alert Motor exam: strength 5/5 throughout and no movement abnormalities noted Psych Common normals: mental status grossly normal, thought process normal, cooperative, affect normal, speech normal and activity/motor behavior normal Speech: normal speech Thought process: normal thought process Results Additional Findings Additional findings: If on a controlled substance or opioids, I have checked an [place]AR[place] report on this patient and there are no aberrancies noted in the prescribing history.??If on a controlled substance or opioid a drug screen was completed and reviewed within the last year, and if there has not been a drug screen completed we ordered one today to monitor higher risk, state monitored pain medication use. As part of providing excellent, safe, comprehensive care, the following was completed at our patient's visit: 1. A medication reconciliation and review to ensure accurate knowledge of current/active medications, including asking our patients to inform us about any [id number] medications or herbal remedies/nutritional supplements/alternative remedies. 2. A review to specifically ensure our patients have had annual screening for screening for depression, screening for tobacco use, and screening for unhealthy alcohol use. For concerning screenings had a discussion with the patient, provided patient education, and recommended follow-up with primary care provider when appropriate. If patient noted with a risk of falling, they received education on strength, gait, and balance training to prevent future risk of falling. Assessment and Plan Assessment and Plan (1) Lumbar spondylosis: (2) Chronic pain of both knees: Plan bilateral L4-5 L5-S1 MBB x2 working towards RFA under fluoroscopy, risks vs benefits reviewed increase baclofen 5-10mg BID PRN pain/spasms continue HEP as tolerated deferring additional workup for knee pain at this time, declining ortho/sports medicine consult f/u after each injection. pt to call as shes not interested at this time
== END 2024-09-06 15:09 | disposition home or self-care (01) ==
PROVIDERS: PCP Family Medicine; Visit Provider Nurse Practitioner
DX: M47.816 Spondylosis without myelopathy or radiculopathy, lumbar region (principal); M25.561 Pain in right knee; M25.562 Pain in left knee
CPT/HCPCS: G0463

== ENCOUNTER 2025-05-31 16:07 | Outpatient (OUT) | payer OTHER, SELFPAY ==
--- OUTSIDE RECORDS SUMMARY | 2025-05-31 16:18 | XMS_ITS | CCD ---
Author Organization [facility] Care Team Providers Care Pediatric Neurologist Name Role Phone WINSOME, MINGO S Unavailable Unavailable BETANCUR, MAYE P Unavailable Unavailable WINSOME, MINGO S Unavailable Unavailable BETANCUR, MAYE P Unavailable Unavailable SaraJennyfer Unavailable Jessenia Ortiz Unavailable KIRBY ALBERTO Primary [...] DR RIC Diaz Consulting Unavailable NADERESalomón, DR KIRBY Ayala Primary Care Unavailable NADERESalomón, DR KIRBY Ayala Attending Unavailable NADERER, DR [...] Unavailable NADERER, DR KIRBY Ayala Attending Unavailable REMY, DR KIRBY Ayala Admitting Unavailable Leana Soler Unavailable KEN Soler Attending Provider [phone] Leana Soler Attending Unavailable Leana Soler Admitting Unavailable NO FAMILY, PHYSICIAN Primary Care Unavailable Elisabeth Ma Unavailable KIRBY ALBERTO Attending Unavailable KIRBY ALBERTO Attending Unavailable YOVANI MORALES Attending Unavailable KIRBY ALBERTO Referring Unavailable YOVANI MORALES H Attending Unavailable KIRBY ALBERTO Attending Unavailable JARRED NEGRETE Attending Unavailable GORGE WELDON Attending Unavailable CADEN JARRED C Admitting Unavailable CADEN JARRED Mehdi Attending Unavailable Nisha JOHNSTON, Andrius Marshall Attending Unavailable Gigarret JOHNSTON, Andrius Vwallace Attending Unavailable Nisha JOHNSTON, Andrius Vytmekhi Attending Unavailable Nisha JOHNSTON, Andrius Vytautstacy Attending Unavailable Nisha JOHNSTON, Andrius Emilyytmekhi Attending Unavailable Kirby Alberto MD Primary Care Provider Flaca JOHNSTON, Milton Thomas Unavailable Unavailable Primary Care Provider UnavailAnna Zavala Attending Unavailable Anna JERRY Attending Unavailable Timmis Yovani H Attending Unavailable Timmis, Yovain H Referring Unavailable Timmis, Yovani H Admitting Unavailable LUL CHANG Attending Unavailable KIRBY ALBERTO Referring Unavailable KIRBY ALBERTO Attending Unavailable KIRBY ALBERTO Attending Unavailable KIRBY ALBERTO Attending Unavailable KIRBY ALBERTO Attending Unavailable NO FAMILY, PHYSICIAN Primary Care Provider Kirby Alegria MD Attending Provider Allergies Allergy Classification Reported Allergen(s) Allergy Type Date of Onset Reaction(s) Facility Penicillins (antibiotic) (1 source) Penicillin G; Translations: [penicillin G benzathine] Drug Allergy Eruption of skin (disorder) [facility] (9 sources) Penicillin G Benzathine; Translations: [Penicillin G] Drug allergy rash, Eruption of skin (disorder) [facility] (1 source) Penicillin Drug Allergy [facility] (20 sources) Penicillins; Translations: [PENICILLINS] Propensity to adverse [...] mg / caffeine 40 mg oral tablet (20 sources) Barbiturate, Central Nervous System Stimulant, Methylxanthine Start: 07-30-2024 APAP/butalbital/ caffeine 325 mg-50 mg-40 mg Tab 1 tab(s), Refill(s) 0 Start Date: 07/30/24 Status: Ordered Start: 02-17-2024 take 1 tablet by mouth four times daily as needed for headache khxyrcgavf-dvkrknvnibbml-npzanivv 50-325 -40 MG tablet Indications: Chronic migraine without aura without status migrainosus, not intractable Take 1 tablet by mouth 4 (four) times a day as needed for headaches 60 tablet 2 02/17/2024 Active Start: 11-27-2023 take 1 tablet by mouth every four hours as needed Rseoqtbfww-Unvbsvghkpakm-Srvx 50-325-40 mg tablet Active 1 TAB PO Every 4 hours as needed November 27, 2023 1:00am Complies with drug therapy albuterol 0.83 mg/ml inhalation solution (4 sources) beta2-Adrenergic Agonist Start: 05-07-2024 2.5 m g, nebulization, Once as needed, wheezing, Starting on Tue05/07/24 at 0938, For 1 dose, Recovery (only) Start: 09-01-2022 take 2 puff(s) by in halation four times daily as needed Albuterol Sulfate HFA 108 (90 Base) MCG/ACT 2 puffs Inhalation 4 times a day prn Aug, Not-Taking/PRN Start: 09-01-2022 take 2 puff(s) by in halation four times daily as needed Albuterol Sulfate HFA 108 (90 Base) MCG/ACT 2 puffs Inhalation 4 times a day prn Aug, Not-Taking Amphetamine / Dextroamphetamine (1 source) Central Nervous System Stimulant Adderall Active 24 hr amphetamine aspartate 5 mg / amphetamine sulfate 5 mg / dextroamphetamine saccharate 5 mg / dextroamphetamine sulfate 5 mg extended release oral capsule (20 sources) Central Nervous System Stimulant Start: 05-30-20 take 2 capsules by mouth once daily Dextroamphetamine -Amphetamine 20 mg capsule,extended release 24hr Active 40 MG PO Daily May 30, 2025 3:39pm Complies with drug therapy Start: 04-29-2025 End: 05-29-2025 take 2 capsules by mouth every twenty-four hours in the morning amphetamine-dextroamphetamine XR (Addera ll XR) 20 MG 24 hr capsule Indications: Obstructive sleep apnea (adult) (pediatric) Take 2 capsules (40 mg) by mouth in the morning. Do not crush or chew. 60 capsule 04/29/2025 05/29/2025 Active Start: 09-06-2024 End: 04-26-2025 take 2 capsules by mouth every twenty-four hours in the morning amphetamine-dextroamphetamine XR (Addera ll XR) 20 MG 24 hr capsule Indications: Obstructive sleep apnea (adult) (pediatric) Take 2 capsules (40 mg) by mouth in the morning. Do not crush or chew. 60 capsule 03/27/2025 04/26/2025 Discontinued (Reorder) Start: 07-30-2024 Adderall 40 mg , Oral, Refill(s) 0 Start Date: 07/30/24 Status: Ordered Start: 04-18-2024 End: 08-31-2024 take 1 capsule by mouth every twenty-four hours in the morning amphetamine-dextroamphetamine XR (Addera ll XR) 20 MG 24 hr capsule Indications: Obstructive sleep apnea (adult) (pediatric) Take 1 capsule (20 mg) by mouth in the morning. Do not crush or chew.. 60 capsule 06/05/2024 Active Start: 02-17-2024 End: 03-18-2024 take 1 capsule by mouth once daily amphetamine-dextroamphetamine XR (Addera ll XR) 30 mg 24 hr capsule Take 1 capsule (30 mg) by mouth once daily. 02/17/2024 Active Start: 11-27-2023 End: 05-30-2025 take 1 capsule by mouth once daily Dextroamphetamine-Amphetamine 20 mg capsule,extended release 24hr Discontinued 20 MG PO Daily November 27, 2023 1:00am May 30, 2025 3:43pm baclofen 10 mg oral tablet (20 sources) gamma-Aminobutyric Acid-ergic Agonist Start: 11-27-2023 take 1 tablet by mouth once daily as needed Baclofen 10 mg tablet Active 10 MG PO Daily as needed November 27, 2023 1:00am Complies with drug therapy Start: 09-14-2023 take 1 tablet by herson th in the morning baclofen (Lioresal) 10 mg tablet Take 1 tablet (10 mg) by mouth early in the morning.. 09/14/2023 Active caffeine 200 mg oral tablet (1 source) Central Nervous System Stimulant, Methylxanthine Start: 07-30-2024 caffeine 200 mg, Oral, Refills(s) 0 Start Date: 07/30/24 Status: Ordered calcium chloride 0.0014 meq/ml / potassium chloride 0.004 meq/ml / sodium chloride 0.103 meq/ml / sodium lactate 0.028 meq/ml injectable solution (1 source) Start: 05-07-2024 take 100 mL intravenously every hour 100 mL/hr, intravenous, Continuous, Starting on Tue05/07/24 at 1000, Recovery (only) cetirizine hydrochloride 10 mg oral tablet (2 sources) Histamine-1 Receptor Antagonist take 1 tablet by mouth every twenty-four hours ZyrTEC Allergy 10 MG 1 tablet Orally Once a day Active 12 hr cetirizine hydrochloride 5 mg / pseudoephedrine hydrochloride 120 mg extended release oral tablet (20 sources) alpha-Adrenergic Agonist, Histamine-1 Receptor Antagonist Start: 03-26-2024 End: 03-26-2025 take 1 tablet by mouth once in the morning, then take 1 tablet by mouth every twelve hours at bedtime cetirizine-pseud oephedrine (ZyrTEC-D) 5-120 MG 12 hr tablet Indications: Chronic pansinusitis Take 1 tablet by mouth in the morning and 1 tablet before bedtime. 60 tablet 11 03/26/2024 Active Start: 01-16-2024 End: 01-15-2025 take 1 tablet by mouth twice daily cetirizine-pseudoephedrine (ZyrTEC-D) 5- 120 mg 12 hr tablet Take 1 tablet by mouth twice a day. 01/16/2024 01/15/2025 Active Start: 11-27-2023 take 1 tablet by herson th every twelve hours, then take 1 tablet by mouth every twelve hours Cetirizine-Pseudoephedrine (Zyrtec-D) 5- 120 mg tablet extended release 12 hr Active 1 TAB PO Every 12 hours November 27, 2023 1:00am Complies with drug therapy cholecalciferol 0.05 mg oral tablet (20 sources) Vitamin D Start: 11-27-2023 take 1 tablet by mouth once daily cholecalciferol (Vitamin D-3) 50 MCG (1999 UT) tablet Indications: Vitamin D deficiency, unspecified TAKE 1 TABLET BY MOUTH DAILY 90 tablet 3 07/02/2024 Active cholecalciferol (Vitamin D-3) 50 MCG (1999 UT) tablet 2,000 Units in the morning. Active clarithromycin 500 mg oral tablet (1 source) Macrolide Antimicrobial Start: 04-22-2022 take 1 tablet by mouth every twelve hours Clarithromycin 500 MG 1 tablet Orally every 12 hrs for 10 day(s) Apr, Active clindamycin 150 mg oral capsule (2 sources) Lincosamide Antibacterial Start: 05-07-2024 End: 05-17-2024 take 2 capsules by mouth twice daily clindamycin (Cleocin) 150 mg capsule Indications: Deviated nasal septum Take 2 capsules (300 mg) by mouth 2 times a day for 10 days. 40 capsule 05/07/2024 05/17/2024 Active etodolac 400 mg oral tablet (20 sources) Nonsteroidal Anti-inflammatory Drug Start: 05-30-2025 take 1 tablet by mouth every twelve hours as needed Etodolac (Lodine) 400 mg tablet Active 400 MG PO Every 12 hours as needed May 30, 2025 12:00am Complies with drug therapy Start: 02-25-2025 take 1 tablet by herson th twice daily as needed for pain etodolac (Lodine) 400 MG tablet Indications: Thoracic spondyloarthritis TAKE 1 TABLET BY MOUTH TWICE DAILY NEEDED FOR PAIN 60 tablet 5 02/25/2025 Active Start: 02-17-2024 take 1 tablet by herson th twice daily as needed for pain etodolac (Lodine) 400 MG tablet Indications: Thoracic spondyloarthritis Take 1 tablet (400 mg) by mouth 2 (two) times a day as needed (Pain) 60 tablet 5 02/17/2024 Active furosemide 40 mg oral tablet (20 sources) Loop Diuretic Start: 05-30-2025 take 1 tablet by mouth once daily Furosemide (Lasix) 40 mg tablet Active 40 MG PO Daily May 30, 2025 12:00am Complies with drug therapy Start: 03-08-2023 End: 03-26-2025 take 1 tablet by mouth once daily as needed for edema furosemide (Lasix) 40 MG tablet Indications: Bilateral leg edema Take 1 tablet (40 mg) by mouth Daily as needed (Edema) 30 tablet 5 03/26/2025 Active hydroCHLOROthiazide 12.5 mg oral capsule (9 sources) Thiazide Diuretic Start: 05-30-2025 take 1 capsule by mouth every other day Hydrochlorothiazide 12.5 mg capsule Active 12.5 MG PO As Directed May 30, 2025 12:00am Take one capsule every other day Complies with drug therapy Start: 07-30-2024 take 1 capsule by mo uth every other day hydrochlorothiazide 12.5 mg Cap 12.5 mg = 1 cap(s), Oral, Every other day, # 15 cap(s), Refills(s) 11, Pharmacy: [id number], 153, cm, 07/30/24 16:03:00 EST, Height/Length Dosing, 98, kg, 07/30/24 16:03:00 EST, Weight Dosing Start Date: 07/30/24 Status: Ordered take 1 tablet by herson th once daily hydroCHLOROthiazide (HYDRODiuril) 12.5 MG tablet Take 12.5 mg by mouth Daily Active hydroCHLOROthiaz hua Not-Taking/PRN hydroCHLOROthiaz hua Not-Taking hydroCHLOROthiaz hua Active 1 ml HYDROmorphone hydrochloride 1 mg/ml cartridge (2 sources) Opioid Agonist Start: 05-07-2024 0.5 mg, intrav enous, Every 5 min PRN, pain severe (7-10), first line, Starting on Tue05/07/24 at 0938, For 5 doses, Recovery (only), Max total of 2 mg regardless of dose. Start: 05-07-2024 0.2 mg, intrav enous, Every 5 min PRN, pain moderate (4-6), first line, Starting on Tue05/07/24 at 0938, For 5 doses, Recovery (only), Max total of 1 mg regardless of dose. levoFLOXacin 750 mg oral tablet (2 sources) [...] a day for 6 days Apr, Active 2 ml metoclopramide 5 mg/ml injection (1 source) Dopamine-2 Receptor Antagonist Start: 05-07-2024 10 mg, intravenous, Once as needed, nausea/vomiting, second line, Starting on Tue05/07/24 at 0938, For 1 dose, Recovery (only) montelukast 10 mg oral tablet (2 sources) Leukotriene Receptor Antagonist Start: 02-08-2023 montelukast 10 mg Tab Refills(s) 0 Start Date: 02/08/23 Status: Ordered mupirocin 0.02 mg/mg topical ointment (2 sources) RNA Synthetase Inhibitor Antibacterial Start: 05-07-2024 mupirocin (Bactroban) 2 % ointment Indications: Deviated nasal septum Apply ointment liberally to surgical incision sites three times a day for 14 days 30 g 3 05/07/2024 Active ondansetron 4 mg oral tablet (3 sources) Serotonin-3 Receptor Antagonist Start: 05-07-2024 take 2 tablets by mouth every eight hours for nausea ondansetron (Zofran) 4 mg tablet Indications: Deviated nasal septum Take 2 tablets (8 mg) by mouth every 8 hours if needed for nausea or vomiting. 20 tablet 05/07/2024 Active Start: 05-07-2024 4 mg, intraven ous, Once as needed, nausea/vomiting, first line, Starting on Tue05/07/24 at 0938, For 1 dose, Recovery (only), When administering via IV Push, administer over 3-5 minutes. oxyCODONE hydrochloride 5 mg oral tablet (2 sources) Opioid Agonist Start: 05-07-2024 End: 05-11-2024 take 1 tablet by mouth every six hours for pain oxyCODONE (Roxicodone) 5 mg immediate release tablet Indications: Deviated nasal septum Take 1 tablet (5 mg) by mouth every 6 hours if needed for severe pain (7 - 10) for up to 4 days. 16 tablet 05/07/2024 05/11/2024 Active Start: 05-07-2024 take 1 tablet by herson th every four hours as needed 5 mg, oral, Every 4 hours PRN, pain mild (1-3), first line, Starting on Tue05/07/24 at 0938, Recovery (only), When able to take oral medications., If ordered PRN for pain, nurse is permitted to administer this medication for higher pain scores based on patient preference? Yes oxygen (O2) therapy (1 source) Start: 05-07-2024 take 1 mL by inhalation every hour inhalation, at 2 mL/hr, Continuous PRN - O2/gases, other, Post-operative care O2 support titration, Starting on Tue05/07/24 at 0938, Recovery (only), Titrate cannula versus simple face mask to O2 saturation, Device: Nasal Cannula, Rate in liters per minute: 2 LPM, Keep O2 Sat Above: 92%, Indications: invasive surgical procedure, Post-operative Oxygen support PARoxetine hydrochloride 30 mg oral tablet (20 sources) Serotonin Reuptake Inhibitor Start: 12-09-2023 End: 12-08-2024 take 1 tablet by mouth once daily in the morning PARoxetine (Paxil) 30 MG tablet Indications: Generalized anxiety disorder TAKE 1 TABLET BY MOUTH ONCE DAILY IN THE MORNING 30 tablet 11 12/04/2024 Active Start: 10-04-2022 take 1 tablet by herson th once daily Paroxetine Hcl (Paxil) 20 mg tablet Active 20 MG PO Daily November 27, 2023 1:00am Complies with drug therapy Paxil Active predniSONE 50 mg oral tablet (8 sources) Start: 07-05-2024 End: 07-11-2024 take 1 tablet by mouth once daily predniSONE (Deltasone) 50 MG tablet Indications: Acute bronchitis due to other specified organisms Take 1 tablet (50 mg) by mouth Daily for 6 days 6 tablet 07/05/2024 07/11/2024 Active Start: 11-27-2023 End: 05-30-2025 take 1 tablet by mouth twice daily Prednisone 20 mg tablet Discontinued 20 MG PO Twice daily 10 November 27, 2023 1:00am May 30, 2025 3:40pm Start: 03-06-2023 predniSONE 20 MG Take 3 tabs daily x 3 days, then take 2 tabs daily x 3 days, then take 1 tab daily x 3 days. Orally Once a day for 9 days Feb, Not-Taking/PRN Start: 09-01-2022 take 1 tablet by herson th every twelve hours predniSONE 20 MG 1 tablet Orally 2 times a day for 5 day(s) Aug, Not-Taking/PRN sodium chloride 0.111 meq/ml nasal spray (3 sources) Start: 05-14-2024 sodium chlorid e (Calypso) 0.65 % nasal spray Indications: Deviated nasal septum Administer 1 spray into each nostril if needed for congestion. 30 mL 12 05/14/2024 Active Start: 05-07-2024 End: 05-14-2024 sodium chloride (Calypso) 0.65 % nasal spray Indications: Deviated nasal septum Administer 1 spray into each nostril if needed for congestion. 30 mL 12 05/07/2024 05/14/2024 Discontinued (Reorder) temazepam 15 mg oral capsule (3 sources) Benzodiazepine Start: 03-26-2025 End: 05-25-2025 temazepam (Restoril) 15 MG capsule Indications: Insomnia due to mental condition Take 1 capsule (15 mg) by mouth as needed at bedtime for sleep 30 capsule 1 03/26/2025 05/25/2025 Active Thiamine (1 source) Start: 07-30-2024 thiamine 100 m g, Refills(s) 0 Start Date: 07/30/24 Status: Ordered topiramate 25 mg oral tablet (6 sources) Start: 10-04-2022 take 1 mg by mouth twice daily Topamax 25 mg Tab mg tab(s), Oral, BID, Refills(s) 0 Start Date: 10/04/22 Status: Ordered Topamax Active traZODone hydrochloride 50 mg oral tablet (2 sources) Serotonin Reuptake Inhibitor Start: 05-30-2025 take 1 tablet by mouth once daily Trazodone 50 mg tablet Active 50 MG PO Daily May 30, 2025 12:00am Complies with drug therapy Start: 04-02-2025 take 1 tablet by herson th at bedtime traZODone (Desyrel) 50 MG tablet Indications: Insomnia due to mental condition Take 1 tablet (50 mg) by mouth at bedtime 30 tablet 3 04/02/2025 Active Tylenol Extra Strength 500 MG (3 sources) take 1 tablet by mouth every six hours as needed Tylenol Extra Strength 500 MG 1 tablet as needed Orally every 6 hrs Active valACYclovir 500 mg oral tablet (2 sources) Herpesvirus Nucleoside Analog DNA Polymerase Inhibitor, Herpes Simplex Virus Nucleoside Analog DNA Polymerase Inhibitor, Herpes Zoster Virus Nucleoside Analog DNA Polymerase Inhibitor Start: 4 End: 4 take 1 tablet by mouth twice daily valACYclovir (Valtrex) 500 mg tablet Indications: Sore of lip Take 1 tablet (500 mg) by mouth 2 times a day for 7 days. 14 tablet 05/07/2024 05/14/2024 Active vitamin B12 (1 source) Vitamin B12 Start: 4 Vitamin B12 See Instructions, Refills(s) 0 Start Date: 07/30/24 Status: Ordered Vitamin D (3 sources) Vitamin D Active Vitamin D3 2000 intl units oral tablet (4 sources) Start: 3 Vitamin D3 2000 intl units oral tablet [...] 2 tablets Orally Once a day Not-Taking/PRN amitriptyline hydrochloride 25 mg oral tablet (20 sources) Tricyclic Antidepressant Start: 08-27-2024 End: 03-26-2025 take 1 tablet by mouth at bedtime amitriptyline (Elavil) 25 MG tablet Indications: Migraine without aura and without status migrainosus, not intractable TAKE 1 TABLET BY MOUTH AT BEDTIME 30 tablet 5 01/01/2025 03/26/2025 Discontinued Start: 11-27-2023 End: 05-30-2025 amitriptyline 25 mg Tab 25 m g = 1 tab(s), Refills(s) 0 Start Date: 07/30/24 Status: Ordered dextromethorphan hydrobromide 1.5 mg/ml / pyrilamine maleate 1.5 mg/ml oral solution (1 source) Uncompetitive Q-vjuhnz-Z-aspartate Receptor Antagonist, Sigma-1 Agonist Start: 11-27-2023 End: 05-30-2025 take 1 mL by mouth every eight hours Pyrilamine-Dextromethorphan ([place] Dm) 7.5-7.5 mg/5 mL liquid Discontinued 10 ML PO Every 8 hours 150 5 November 27, 2023 1:00am May 30, 2025 3:40pm polymyxin b 43598 unt/ml / trimethoprim 1 mg/ml ophthalmic solution (1 source) Dihydrofolate Reductase Inhibitor Antibacterial, Polymyxin-class Antibacterial Start: 02-01-2023 take 1 drop(s) into the eye(s) every three hours Polytrim 99603-0.1 UNIT/ML 1 drop into affected eye Ophthalmic every 3 hours while awake for January, Not-Taking Polytrim 45781-0.1 UNIT/ML (1 source) Start: 02-01-2023 take 1 drop(s) into the eye(s) every three hours as needed Polytrim 85856-0.1 UNIT/ML 1 drop into affected eye Ophthalmic every 3 hours while awake for January, Not-Taking/PRN Problems Active Problems Problem Classification Problem Date Documented Date Episodic/Chronic Abdominal pain (20 sources) Unspecified abdominal pain; Translations: [Pelvic and perineal pain] Onset: 10-30-2022 Episodic Anxiety disorders (20 sources) Generalized anxiety disorder; Translations: [Generalized anxiety disorder] Onset: 09-29-2023 4 Chronic Attention-deficit, conduct, and disruptive behavior disorders (3 sources) Attention deficit hyperactivity disorder; Translations: [Attention-deficit hyperactivity disorder, unspecified type] Onset: 05-07-2024 05-07-2024 Chronic Calculus of urinary tract (20 sources) Calculus of kidney; Translations: [Kidney stone] Onset: 07-08-2017 Episodic Diseases of mouth; excluding dental (3 sources) Diseases of lips; Translations: [Disorder of lip] Onset: 05-07-2024 Episodic Genitourinary symptoms and ill-defined conditions (1 source) Dysuria Episodic Gout and other crystal arthropathies (3 sources) Gouty arthritis of left foot; Translations: [Gout, unspecified] Chronic Headache; including migraine (20 sources) Migraine without aura, not refractory ; Translations: [Migraine without aura, not intractable, without status migrainosus] Onset: 10-04-2023 10-04-2023 Chronic Heart valve disorders (4 sources) Heart murmur 10-04-2022 Episodic Miscellaneous mental health disorders (7 sources) Insomnia disorder related to another mental disorder; Translations: [Insomnia due to other mental disorder] Onset: 03-26-2025 03-26-2025 Chronic Mood disorders (3 sources) Depressive disorder; Translations: [Depression] Onset: 05-07-2024 05-07-2024 Chronic Nonspecific chest pain (4 sources) Chest pain, unspecified; Translations: [CHEST PAIN UNSPECIFIED] Onset: 11-17-2022 Episodic Nutritional deficiencies (20 sources) Vitamin D deficiency; Translations: [Vitamin D [...] [HISTORY OF FALLING] Onset: 11-05-2022 Episodic Other nervous system disorders (1 source) Paresthesia; Translations: [Paresthesia of skin] 12-12-2024 Episodic Other non-traumatic joint disorders (1 source) Bilateral wrist pain; Translations: [Pain in right wrist] 12-12-2024 Episodic Other nutritional; endocrine; and metabolic disorders (12 sources) Morbid obesity; Translations: [Morbid (severe) obesity due to excess calories] Onset: 10-04-2023 10-04-2023 Chronic Other nutritional; endocrine; and metabolic disorders (17 sources) Severe obesity; Translations: [Class 3 severe obesity due to excess calories with serious comorbidity and body mass index (BMI) of 45.0 to 49.9 in adult ([facility])] Onset: 10-04-2023 09-25-2024 Chronic Other upper respiratory disease (4 sources) Deviated nasal septum; Translations: [Deviated nasal septum] Onset: 03-15-2024 Episodic Other upper respiratory disease (10 sources) Deviated nasal septum; Translations: [Deviated nasal septum] Onset: 03-15-2024 Episodic Other upper respiratory disease (2 sources) Nasal congestion; Translations: [Nasal congestion] Onset: 03-15-2024 Episodic Other upper respiratory disease (2 sources) Hypertrophy of nasal turbinates; Translations: [Hypertrophy of nasal turbinates] Onset: 03-15-2024 Episodic Other upper respiratory infections (20 sources) Chronic sinusitis, unspecified; Translations: [Chronic rhinitis] Onset: 12-20-2023 12-20-2023 Chronic Other upper respiratory infections (1 source) Acute upper respiratory infection, unspecified Episodic Residual codes; unclassified (20 sources) Obstructive sleep apnea syndrome; Translations: [Obstructive sleep apnea (adult) (pediatric)] Onset: 10-04-2023 Resolved: 09-25-2024 10-04-2023 Chronic Residual codes; unclassified (20 sources) Hypersomnia with sleep apnea; Translations: [Hypersomnia, unspecified] Onset: 04-17-2024 04-17-2024 Chronic Residual codes; unclassified (20 sources) Family history of malignant neoplasm of breast in first degree relative; Translations: [Family history of malignant neoplasm of breast] Onset: 09-29-2023 09-29-2023 Episodic Residual codes; unclassified (20 sources) Bilateral lower limb edema; Translations: [Localized edema] Onset: 09-29-2023 09-29-2023 Episodic Spondylosis; intervertebral disc disorders; other back problems (20 sources) Spondylosis without myelopathy or radiculopathy, cervical [...] Problem Date Documented Date Episodic/Chronic Acute bronchitis (20 sources) Acute infective bronchitis; Translations: [Acute bronchitis due to other specified organisms] Onset: 07-05-2024 Resolved: 09-25-2024 07-05-2024 Episodic Immunizations and screening for infectious disease (2 sources) Contact with and (suspected) exposure to other viral communicable diseases; Translations: [Encounter for screening for human papillomavirus (HPV)] Onset: 07-22-2021 Resolved: 07-22-2021 Episodic Other acquired deformities (5 sources) Finding of nasal deformity; Translations: [Acquired [...] Onset: 06-09-2022 Episodic Other upper respiratory disease (5 sources) Nasal congestion; Translations: [Nasal congestion] Onset: 03-15-2024 03-16-2024 Episodic Other upper respiratory disease (1 source) Nasal obstruction; Translations: [Other specified disorders of nose and nasal sinuses] 03-16-2024 Episodic Other upper respiratory disease (5 sources) Hypertrophy of nasal turbinates; Translations: [Hypertrophy [...] ORGN] Onset: 06-25-2022 Episodic Residual codes; unclassified (1 source) Abnormal sensation; Translations: [Other symptoms and signs involving general sensations and perceptions] 03-16-2024 Episodic Unclassified (1 source) Contact with and (suspected) exposure to covid-19 Z20.822 Unclassified (1 source) Onset: 05-14-2024 05-14-2024 Viral infection (1 source) COVID-19 Onset: 07-22-2021 Resolved: 07-22-2021 Results Test Name Value Interpretation Reference Range Facility Patient Letter [facility] [place] [facility] Patient [facility] [place] Patient Letter [facility] [place] January 03, 2025 LUL [place]OLA [address] [place] [address] : 1985 To who it may concern, Lul Gurrola is a current urology patient of [facility]. Please excuse her to use the bathroom on her breaks and as needed due to the medication which has been prescribed to treat her urological condition. This medication can cause frequency, and urgency. Thank you for your cooperation in this matter. Please feel free to contact me with any questions or concerns. Sincerely, Anna Jerry M.D., F.A.C.S. [facility] [address] [place] [address] , option #3 Normal [facility] EMG 2 Extremitieson 12-13-19 25 EMG/NCS BUE Normal study [facility] NVC - Nerveson 5 EMG/NCS BUE Normal study [facility] ELECTROLYTESon 4 Anion gap [Moles/Vol] 10.9 mmol/L [facility] Chloride [Moles/Vol] 103 mmol/L 98 - 107 mmol/L [facility] CO2 [Moles/Vol] 29 mmol/L 21.0 - 32.0 mmol/L [facility] Potassium [Moles/Vol] 3.9 mmol/L 3.5 - 5.1 mmol/L [facility] Sodium [Moles/Vol] 139 mmol/L 136 - 145 mmol/L [facility] Healthcare [facility] Ambulatory Visit Summaryon 09-29-2023 Ambulatory Visit Summary Ambulatory Visit Summary LUL PELAEZ :1985 Visit Date:07/30/2024 Ambulatory Visit Instructions Your [...] Anna JERRY MD Where: [facility] [address] [facility] [place] [address]- You Need to Schedule the Following Appointments Follow Up with Anna JERRY MD, URL When: Where: [facility] [address], [place] [place] [address] [phone] Medications What How Much When Instructions Unchanged [...] ? 8 oz (237 mL) of milk, heryjiv-cqeyycsuibtu-f airy milk, and calcium-fortifiedfruit juice. Calcium-fortified means [...] Low-fat (more content not included)... Normal [facility] Urology Office/Clinic Noteon 07-30-2024 Urology Office/Clinic Note [...] tiny stones on the left. XR IVP 01/24/23 TB[facility] - no ureteral stones or evidence [...] with results. Follow-up With When Contact Information CLARITZA JOHNSTON, Anna Lorenzana, URL [facility] [address] [place] [address] [phone] Additional Instructions: schedule CT scan Patient Education Dietary Guidelines to Help Prevent Kidney Stones Ailin Colbert (more content not included)... Normal [facility] Comment on above: Result Comment: Elec tronically Signed By: Anna JERRY MD\.br\Date and Time Signed: 07/30/24 17:01 EST\.br\Electronically Co-Signed By: Ailin Dubose\.br\Date and Time Co-Signed: 07/30/24 17:00 EST HCG QUALITATIVE*on 4 [facility] , QUAL Negative NEGATIVE [facility] HCG ( test) Ql (U)o n 05-07-2024 Interpretation and review of laboratory results Normal [facility] Work Phone: Preg Test, Ur Negative Negative [facility] Work Phone: [facility] Work Phone: CT Maxillofacial w/o Contras ton 02-21-2024 CT [...] Diamond DO Transcribed by: ADILENE Technologist: GALLO [facility] Consent for Treatmenton 01-19 Consent for Treatment [id number] 0TIFF [facility] Physician Orderon 01-26-2024 Physician Order [id number] 0TIFF [facility] Urinalysis - AUTOMATEDon Appearance (U) clear [employer] Other Bilirubin Ql (U) Negative [email or web address] Other Color (U) yellow [employer] Other Glucose Ql (U) Negative [employer] Other Hemoglobin Ql (U) small [employer] Other Ketones Ql (U) Negative [employer] Other Leukocyte esterase Test strip Ql (U) Negative [employer] Other Nitrite Ql (U) Negative [employer] Other pH (U) 7.0 [pH] [employer] Other Protein Ql (U) Negative [employer] Other Specific gravity (U) [Rel density] 1.025 [employer] Other Urobilinogen (U) [Mass/Vol] 0.2 mg/dL [employer] [facility] [employer] Other Urinalysis - AUTOMATED [facility] [employer] Other XR foot LT min 3V*on 023 XR foot LT min 3V* [facility] [address] [place] [address] XRay Report Signed Patient: Lul Pelaez MR#: [id number] 6 : 1985 Acct:[id number] Age/Sex: 37 / F ADM Date: 03/06/23 Loc: XDUCLY Room: Type: [facility] Attending Dr: Leana Soler APRN [...] Selena Thomson M.D.03/06/2023 2:30 PM Dictation Location: [place] [address] Transcribed By: [facility] 03/06/23 1430 Dictated By: Selena Thomson MD 03/06/23 1429 Signed By: 03/06/23 1430 Normal [facility] XR foot LT min 3V* [facility] [employer] Other XR foot LT min 3V* [facility] [employer] Other XR foot LT min 3V* [facility] [employer] Other XR foot LT min 3V* [place] [id number] [facility] [employer] Other XR foot LT min 3V* XRay Report [employer] Other XR foot LT min 3V* Signed [employer] Other XR foot LT min 3V* Patient: Lul Pelaez MR#: [id number] [employer] Other XR foot LT min 3V* 6 [employer] Other XR foot LT min 3V* : 1985 Acct:[id number] [employer] Other XR foot LT min 3V* Age/Sex: 37 / F ADM Date: 03/06/23 [employer] Other XR foot LT min 3V* Loc: XDUCLY Room: Type: [facility] [employer] Other XR foot LT min 3V* Attending Dr: Leana Soler APRN [employer] Other XR foot LT min 3V* Copies to: Leana Soler MARKETING ANALYTICS SPECIALIST [employer] Other XR foot LT min 3V* Ordering Provider: Leana Soler APRN [employer] Other XR foot LT min 3V* Date of Service: 03/06/23 [employer] Other XR foot LT min 3V* XR/XR foot LT min 3V*: M79.672 [employer] Other XR foot LT min 3V* LEFT FOOT - 3 views [employer] Other XR foot LT min 3V* CLINICAL DATA: Dorsa l foot pain for the past 5 days. No injury [employer] Other XR foot LT min 3V* COMPARISON: None [employer] Other XR foot LT min 3V* AP, lateral and oblique views were obtained. There is no evidence of fracture or dislocation. [employer] Other XR foot LT min 3V* There are posterior and plantar calcaneal spurs. There is soft tissue swelling over the dorsum of [employer] Other XR foot LT min 3V* foot. The soft tissu es of the ankle are also prominent. [employer] Other XR foot LT min 3V* XR/XR foot LT min 3V* [employer] Other XR foot LT min 3V* IMPRESSION: [employer] Other XR foot LT min 3V* NO ACUTE BONY FINDINGS. [employer] Other XR foot LT min 3V* Impression dictated by: Selena Thomson M.D.03/06/2023 2:30 PM [employer] Other XR foot LT min 3V* Dictation Location: [place] [address] [employer] Other XR foot LT min 3V* Transcribed By: NESSA 03/06/23 1430 [employer] Other XR foot LT min 3V* Dictated By: Selena Thomson MD 03/06/23 1429 [employer] Other XR foot LT min 3V* Signed By: [employer] Other XR foot LT min 3V* 03/06/23 1430 [facility] [employer] Other CITRATE URINE 24HRon 023 Citric Acid, U, 24hr 410 mg/24 hr Normal 320-1240 [facility] Comment on above: Result Comment: This test was developed and its performance characteristics determined by [employer]. It has not been cleared or approved by the Food and Drug Administration. Performed By: #### O X24HR #### [facility] [address] [place] [address] Dr. Neil Krishnamurthy Citric Acid, Urine 200 mg/L Normal Undefined [facility] Comment on above: Performed By: #### O X24HR #### [facility] [address] [place] [address] [address] Neil Krishnamurthy OXALATE 24HR URINEon 023 Oxalates, Urine 7 mg/L Normal Undefined [facility] Comment on above: Performed By: #### O X24HR #### [facility] [address] [place] [address] [address] Neil Krishnamurthy Oxalates, Urine 24hr 14 mg/24 hr Normal 4-31 [facility] Comment on above: Performed By: #### O X24HR #### [facility] [address] [place] [address] Dr. Neil Krishnamurthy MAGNESIUM 24HR URINEon 12-07 Magnesium 24hr Urine 116.9 mg/24 hr Normal 12.0-293.0 [facility] Comment on above: Performed By: #### C O2, CL, BUN, CREA, URIC, K, CA, NA #### [facility] [address] [place] [address] [address] Neil Krishnamurthy Magnesium UR 5.7 mg/dL Normal Not Estab. [facility] Comment on above: Performed By: #### C O2, CL, BUN, CREA, URIC, K, CA, NA #### [facility] [address] [place] [address] [address] Neil Krishnamurthy PHOSPHORUS 24HR URINEon 11-18 Phosphorus, Urine 56.6 mg/dL Normal Not Estab. The [facility] Comment on above: Performed By: #### O X24HR #### [facility] [address] [place] [address] [address] Neil Krishnamurthy Phosphorus, Urine 24hr 1160 mg/24 hr Critically high 261-1078 [facility] Comment on above: Performed By: #### O X24HR #### [facility] [address] [place] [address] Dr. Neil Krishnamurthy PTH INTACTon 12-07-2022 PTH, Intact 41 pg/mL Normal 15-65 [facility] Comment on above: Performed By: #### O X24HR #### [facility] [address] [place] [address] Dr. Neil Krishnamurthy URIC ACID 24 HR URINEon 11-18 Uric Acid, Urine 23.4 mg/dL Normal Not Estab. The [facility] Comment on above: Performed By: #### O X24HR #### [facility] [address] [place] [address] Dr. Neil Krishnamurthy Uric Acid, Urine 24hr 479.7 mg/24 hr Normal 173.7-902.1 [facility] Comment on above: Performed By: #### O X24HR #### [facility] [address] [place] [address] Dr. Neil Krishnamurthy BUNon 12-06-2022 Urea nitrogen [Mass/Vol] 12.0 mg/dL Normal 7.0-18.0 [facility] Comment on above: Performed By: #### C O2, CL, BUN, CREA, URIC, K, CA, NA #### [facility] [address] [place] [address] Dr. Neil Krishnamurthy CALCIUMon 12-06-2022 Calcium [Mass/Vol] 8.6 mg/dL Normal 8.5-10.1 [facility] Comment on above: Performed By: #### O X24HR #### [facility] [address] [place] [address] Dr. Neil Krishnamurthy CALCIUM 24 HR URINEon 2022 CALC, 24 HR UR 479.7 mg/24 hr Critically high 100.0-300.0 [facility] Comment on above: Performed By: #### V AGINT #### [facility] [address] [place] [address] Dr. Neil Krishnamurthy UR CALCIUM 23.4 mg/dL Critically high 5.1-21.0 [facility] Comment on above: Performed By: #### V AGINT #### [facility] [address] [place] [address] Dr. Neil Krishnamurthy UR TOT VOL 2050 ml/24 HR Normal [facility] Comment on above: Performed By: #### V AGINT #### [facility] [address] [place] [address] Dr. Neil Krishnamurthy Performed By: #### C O2, CL, BUN, CREA, URIC, K, CA, NA #### [facility] [address] [place] [address] Dr. Neil Krishnamurthy CHLORIDEon 12-06-2022 Chloride [Moles/Vol] 106 mmol/L Normal 98-107 [facility] Comment on above: Performed By: #### C O2, CL, BUN, CREA, URIC, K, CA, NA #### [facility] [address] [place] [address] Dr. Neil Krishnamurthy CO2on 12-06-2022 CO2 [Moles/Vol] 25.7 mmol/L Normal 21.0-32.0 [facility] Comment on above: Performed By: #### C O2, CL, BUN, CREA, URIC, K, CA, NA #### [facility] [address] [place] [address] Dr. Neil Krishnamurthy CREA 24 HR URINEon CREA, 24 HR UR 1371.04 mg/24 hr Normal 800.00-1, 800. 00 [facility] Comment on above: Performed By: #### C O2, CL, BUN, CREA, URIC, K, CA, NA #### [facility] [address] [place] [address] Dr. Neil Krishnamurthy URINE CREAT 66.88 mg/dL Normal 20.00-300.00 [facility] Comment on above: Performed By: #### C O2, CL, BUN, CREA, URIC, K, CA, NA #### [facility] [address] [place] [address] Dr. Neil Krishnamurthy CREATININEon 12-06-2022 Creatinine [Mass/Vol] 0.78 mg/dL Normal 0.55-1.02 [facility] Comment on above: Performed By: #### C O2, CL, BUN, CREA, URIC, K, CA, NA #### [facility] [address] [place] [address] Dr. Neil Krishnamurthy EGFR-AF CYMRAES >60 Normal >=60 [facility] Comment on above: Performed By: #### C O2, CL, BUN, CREA, URIC, K, CA, NA #### [facility] [address] [place] [address] Dr. Neil Krishnamurthy EGFR-NON AF CYMRAES >60 Normal >=60 [facility] Comment on above: Performed By: #### C O2, CL, BUN, CREA, URIC, K, CA, NA #### [facility] [address] [place] [address] Dr. Neil Krishnamurthy NAon 12-06-2022 Sodium [Moles/Vol] 139 mmol/L Normal 136-145 [facility] Comment on above: Performed By: #### C O2, CL, BUN, CREA, URIC, K, CA, NA #### [facility] [address] [place] [address] Dr. Neil Krishnamurthy POTASSIUMon 12-06-2022 Potassium [Moles/Vol] 4.1 mmol/L Normal 3.5-5.1 [facility] Comment on above: Performed By: #### C O2, CL, BUN, CREA, URIC, K, CA, NA #### [facility] [address] [place] [address] Dr. Neil Krishnamurthy SODIUM 24 HR URINEon 023 NA, 24 HR UR 211 mmol/24 hr Normal 40-220 [facility] Comment on above: Performed By: #### C O2, CL, BUN, CREA, URIC, K, CA, NA #### [facility] [address] [place] [address] Dr. Neil Krishnamurthy Sodium (U) [Moles/Vol] 103 mmol/L Critically high 30-90 [facility] Comment on above: Performed By: #### C O2, CL, BUN, CREA, URIC, K, CA, NA #### [facility] [address] [place] [address] Dr. Neil Krishnamurthy URIC ACID SERUMon 12-06-2022 Urate [Mass/Vol] 5.0 mg/dL Normal 2.6-6.0 [facility] Comment on above: Performed By: #### C O2, CL, BUN, CREA, URIC, K, CA, NA #### [facility] [address] [place] [address] [address] Neil Krishnamurthy ECHOCARDIO M/2D COMPLETEon 0 11-17-2022 ECHOCARDIO M/2D COMPLETE Patient: LUL PELAEZ Exam Date: 11/17/2022 : 1985 Gender:F Ordering : DR KIRBY ALBERTO . Admission #: [id number] Family : Order #: [id number] CLICK HERE TO VIEW EXAM ECHOCARDIOGRAM REPORT [...] Onofre M.D. on 11/18/2022 at 09:50 Normal [facility] US PELVIS AND TRANSVAGon US [...] IMPRESSION: Normal exam Electronically authenticated by: RIC GURROLA Date: 2022-11-01 07:20 Normal [facility] XR RIBS RT PA Karl [...] acute rib fracture Electronically authenticated by: RIC GURROLA Date: 2022-11-01 07:12 Normal [facility] XR TSPINE MIN 4 VIEWSon [...] of cervical lordosis Electronically authenticated by: RIC GURROLA Date: 2022-11-01 07:09 Normal [facility] CREATININEon 10-12-2022 Creatinine [Mass/Vol] 0.91 mg/dL Normal 0.55-1.02 [facility] Comment on above: Performed By: #### O X24HR #### [facility] [address] [place] [address] Dr. Neil Krishnamurthy EGFR-AF CYMRAES >60 Normal >=60 [facility] Comment on above: Performed By: #### O X24HR #### [facility] [address] [place] [address] Dr. Neil Krishnamurthy EGFR-NON AF CYMRAES >60 Normal >=60 [facility] Comment on above: Performed By: #### O X24HR #### [facility] [address] [place] [address] Dr. Neil Krishnamurthy XR IVPon 10-12-2022 XR IVP EXAMINATION: XR IVP HISTORY: Kidney stone COMPARISON: No relevant comparison available. TECHNIQUE: After obtaining patient consent a road freight brake coupler image was obtained followed by injection of [...] Otherwise normal IVP Electronically authenticated by: RIC GURROLA Date: 2022-10-12 09:48 Normal [facility] XR KUB 1 VIEWon 10-05-2022 XR [...] IMPRESSION: Bilateral nephrolithiasis Electronically authenticated by: RIC GURROLA Date: 2022-10-05 07:35 Normal [facility] COVID/FLU RT-PCRon 2 SARS-CoV-2 (COVID-19) RNA BRANDIE+probe Ql (Unsp spec) Negative [employer] Other COVID/FLU RT-PCR Negative [employer] Other XR KUB 1 VIEWon 08-30-2022 XR [...] IMPRESSION: Bilateral nephrolithiasis Electronically authenticated by: RIC GURROLA Date: 2022-08-30 07:28 Normal [facility] CBC AUTO DIFFon 07-13-2022 BASO # 0.0 103/ul Normal 0.0-0.1 [facility] Comment on above: Performed By: #### V AGINT #### [facility] [address] [place] [address] Dr. Neil Krishnamurthy Basophils/100 WBC (Bld) 0.5 % Normal 0.2-2.0 [facility] Comment on above: Performed By: #### V AGINT #### [facility] [address] [place] [address] Dr. Neil Krishnamurthy EO # 0.2 103/ul Normal 0.0-0.7 [facility] Comment on above: Performed By: #### V AGINT #### [facility] [address] [place] [address] Dr. Neil Krishnamurthy Eosinophils/100 WBC (Bld) 1.9 % Normal 0.9-7.0 [facility] Comment on above: Performed By: #### V AGINT #### [facility] [address] [place] [address] Dr. Neil Krishnamurthy Erythrocyte distribution width (RBC) [Ratio] 11.7 % Normal 11.0-15.0 [facility] Comment on above: Performed By: #### V AGINT #### [facility] [address] [place] [address] Dr. Neil Krishnamurthy Hematocrit (Bld) [Volume fraction] 41.1 % Normal 36.0-48.0 [facility] Comment on above: Performed By: #### V AGINT #### [facility] [address] [place] [address] Dr. Neil Krishnamurthy Hemoglobin (Bld) [Mass/Vol] 13.7 g/dL Normal 12.0-16.0 [facility] Comment on above: Performed By: #### V AGINT #### [facility] [address] [place] [address] Dr. Neil Krishnamurthy IG # 0.03 10e3/ul Normal 0.00-0.03 [facility] Comment on above: Performed By: #### V AGINT #### [facility] [address] [place] [address] Dr. Neil Krishnamurthy IG % 0.4 % Normal 0.0-0.5 [facility] Comment on above: Performed By: #### V AGINT #### [facility] [address] [place] [address] Dr. Neil Krishnamurthy LYMPH # 2.8 103/ul Normal 1.2-3.8 [facility] Comment on above: Performed By: #### V AGINT #### [facility] [address] [place] [address] Dr. Neil Krishnamurthy Lymphocytes/100 WBC (Bld) 32.9 % Normal 20.5-60.0 [facility] Comment on above: Performed By: #### V AGINT #### [facility] [address] [place] [address] Dr. Neil Krishnamurthy MANUAL DIFF REQ NO Normal [facility] Comment on above: Performed By: #### V AGINT #### [facility] [address] [place] [address] Dr. Neil rKishnamurthy MCH (RBC) [Entitic mass] 30.4 pg Normal 26.7-34.0 [facility] Comment on above: Performed By: #### V AGINT #### [facility] [address] [place] [address] Dr. Neil Krishnamurthy MCHC (RBC) [Mass/Vol] 33.3 g/dL Normal 29.9-35.2 [facility] Comment on above: Performed By: #### V AGINT #### [facility] [address] [place] [address] Dr. eNil Krishnamurthy MCV (RBC) [Entitic vol] 91.3 fL Normal 81.0-99.0 [facility] Comment on above: Performed By: #### V AGINT #### [facility] [address] [place] [address] Dr. Neil Krishnamurthy MONO # 0.7 103/ul Normal 0.3-0.8 [facility] Comment on above: Performed By: #### V AGINT #### [facility] [address] [place] [address] Dr. Neil Krishnamurthy Monocytes/100 WBC (Bld) 8.0 % Normal 1.7-12.0 [facility] Comment on above: Performed By: #### V AGINT #### [facility] [address] [place] [address] Dr. Neil Krishnamurthy NEUT # 4.8 103/ul Normal 1.4-6.5 [facility] Comment on above: Performed By: #### V AGINT #### [facility] [address] [place] [address] Dr. Neil Krishnamurthy Neutrophils/100 WBC (Bld) 56.3 % Normal 43.0-75.0 [facility] Comment on above: Performed By: #### V AGINT #### [facility] [address] [place] [address] Dr. Neil Krishnamurthy Platelet mean volume (Bld) [Entitic vol] 11.0 fL Normal 9.5-13.5 [facility] Comment on above: Performed By: #### V AGINT #### [facility] [address] [place] [address] Dr. Neil Krishnamurthy PLT 242 103/ul Normal 150-450 [facility] Comment on above: Performed By: #### V AGINT #### [facility] [address] [place] [address] Dr. Neil Krishnamurthy RBC 4.50 106/ul Normal 4.20-5.40 [facility] Comment on above: Performed By: #### V AGINT #### [facility] [address] [place] [address] Dr. Neil Krishnamurthy WBC 8.5 103/ul Normal 4.0-11.0 [facility] Comment on above: Performed By: #### V AGINT #### [facility] [address] [place] [address] Dr. Neil Krishnamurthy GLYCOHEMOGLOBIN A1Con 2021 ADA RECOMMENDATION SEE BELOW Normal [facility] Comment on above: Result Comment: ADA RECOMMENDED LIMIT 4.0 - 6.0 ADA THERAPEUTIC TARGET < 7.0 ACTION SUGGESTED > 7.0 Performed By: #### V AGINT #### [facility] [address] [place] [address] [address] Neil Krishnamurthy Glucose [Mass/Vol] 97 mg/dL Normal [facility] Comment on above: Performed By: #### V AGINT #### [facility] [address] [place] [address] [address] Neil Krishnamurthy HbA1c (Bld) [Mass fraction] 5.0 % Normal 4.5-6.2 [facility] Comment on above: Performed By: #### V AGINT #### [facility] [address] [place] [address] Dr. Neil Krishnamurthy LIPID PROFILEon 07-13-2022 CHOL-HDL RATIO NORM SEE BELOW Normal [facility] System Comment on above: Result Comment: 3.3 - 4.4 LOW RISK 4.4 - 7.1 AVERAGE RISK 7.1 - 11.0 MODERATE RISK >11.0 HIGH RISK Performed By: #### O X24HR #### [facility] [address] [address] [address] Neil Krishnamurthy Cholesterol [Mass/Vol] 157 mg/dL Normal <=200 [facility] Comment on above: Performed By: #### O X24HR #### [facility] [address] [place] [address] Dr. Neil Krishnamurthy Cholesterol in HDL [Mass/Vol] 50 mg/dL Normal 40-60 [facility] Comment on above: Performed By: #### O X24HR #### [facility] [address] [address] [address] Neil Krishnamurthy Cholesterol in LDL [Mass/Vol] 79.4 mg/dL Normal [facility] Comment on above: Performed By: #### O X24HR #### [facility] [address] [address] [address] Neil Krishnamurthy Cholesterol.total/C holesterol in HDL [Mass ratio] 3.1 {ratio} Normal [facility] Comment on above: Performed By: #### O X24HR #### [facility] [address] [address] [address] Neil Krishnamurthy HDL NORMAL > or = 60 mg/dl - LO W CARDIOVASCULAR RISK <40 mg/dl - HIGH CARDIOVASCULAR RISK Normal [facility] Comment on above: Performed By: #### O X24HR #### [facility] [address] [place] [address] Dr. Neil Krishnamurthy LDL CALC NORMAL SEE BELOW Normal [facility] Comment on above: Result Comment: <100 mg/dl OPTIMAL 100 - 129 mg/dl NEAR OR ABOVE OPTIMAL 130 - 159 mg/dl BORDERLINE HIGH 160 - 189 mg/dl HIGH >190 mg/dl VERY HIGH Performed By: #### O X24HR #### [facility] [address] [place] [address] Dr. Neil Krishnamurthy Triglyceride [Mass/Vol] 138 mg/dL Normal <=150 [facility] Comment on above: Performed By: #### O X24HR #### [facility] [address] [place] [address] Dr. Neil Krishnamurthy VLDL CALC 27.6 mg/dL Normal [facility] Comment on above: Performed By: #### O X24HR #### [facility] [address] [place] [address] Dr. Neil Krishnamurthy LIVER PROFILEon 07-13-2022 Albumin [Mass/Vol] 3.5 g/dL Normal 3.4-5.0 [facility] Comment on above: Performed By: #### O X24HR #### [facility] [address] [place] [address] Dr. Neil Krishnamurthy Albumin/Globulin [Mass ratio] 1.0 {ratio} Normal [facility] Comment on above: Performed By: #### O X24HR #### [facility] [address] [place] [address] Dr. Neil Krishnamurthy ALP [Catalytic activity/Vol] 83 U/L Normal 46-116 [facility] Comment on above: Performed By: #### O X24HR #### [facility] [address] [place] [address] Dr. Neil Krishnamurthy ALT [Catalytic activity/Vol] 19 U/L Normal 14-59 [facility] Comment on above: Performed By: #### O X24HR #### [facility] [address] [place] [address] Dr. Neil Krishnamurthy AST [Catalytic activity/Vol] 15 U/L Normal 15-37 [facility] Comment on above: Performed By: #### O X24HR #### [facility] [address] [place] [address] Dr. Neil Krishnamurthy BILI, CONJUGATED 0.1 mg/dL Normal 0.0-0.2 [facility] Comment on above: Performed By: #### O X24HR #### [facility] [address] [place] [address] Dr. Neil Krishnamurthy Bilirubin [Mass/Vol] 0.6 mg/dL Normal 0.2-1.0 [facility] Comment on above: Performed By: #### O X24HR #### [facility] [address] [place] [address] Dr. Neil Krishnamurthy Globulin (S) [Mass/Vol] 3.5 g/dL Normal [facility] Comment on above: Performed By: #### O X24HR #### [facility] [address] [place] [address] Dr. Neil Krishnamurthy Protein [Mass/Vol] 7.0 g/dL Normal 6.4-8.2 [facility] Comment on above: Performed By: #### O X24HR #### [facility] [address] [place] [address] Dr. Neil Krishnamurthy PROF CHEM 8 (BAS METB)on Anion gap [Moles/Vol] 10.8 mmol/L Normal [facility] Comment on above: Performed By: #### O X24HR #### [facility] [address] [place] [address] Dr. Neil Krishnamurthy Calcium [Mass/Vol] 8.2 mg/dL Critically low 8.5-10.1 [facility] Comment on above: Performed By: #### O X24HR #### [facility] [address] [address] [address] Neil Krishnamurthy Chloride [Moles/Vol] 105 mmol/L Normal 98-107 [facility] Comment on above: Performed By: #### O X24HR #### [facility] [address] [address] [address] Neil Krishnamurthy CO2 [Moles/Vol] 24.5 mmol/L Normal 21.0-32.0 [facility] Comment on above: Performed By: #### O X24HR #### [facility] [address] [address] [address] Neil Krishnamurthy Creatinine [Mass/Vol] 0.74 mg/dL Normal 0.55-1.02 [facility] Comment on above: Performed By: #### O X24HR #### [facility] [address] [address] [address] Neil Krishnamurthy EGFR-AF CYMRAES >60 Normal >=60 [facility] Comment on above: Performed By: #### O X24HR #### [facility] [address] [address] [address] Neil Krishnamurthy EGFR-NON AF CYMRAES >60 Normal >=60 [facility] Comment on above: Performed By: #### O X24HR #### [facility] [address] [address] [address] Neil Krishnamurthy Glucose [Mass/Vol] 106 mg/dL Normal 74-106 [facility] Comment on above: Performed By: #### O X24HR #### [facility] [address] [address] [address] Neil Krishnamurthy Potassium [Moles/Vol] 3.5 mmol/L Normal 3.5-5.1 [facility] Comment on above: Performed By: #### O X24HR #### [facility] [address] [address] [address] Neil Krishnamurthy Sodium [Moles/Vol] 137 mmol/L Normal 136-145 [facility] Comment on above: Performed By: #### O X24HR #### [facility] [address] [address] [address] Neil Krishnamutrhy Urea nitrogen [Mass/Vol] 11.0 mg/dL Normal 7.0-18.0 [facility] Comment on above: Performed By: #### O X24HR #### [facility] [address] [place] [address] Dr. Neil Krishnamurthy Urea nitrogen/Creatinine [Mass ratio] 14.8 mg/mg Normal [facility] Comment on above: Performed By: #### O X24HR #### [facility] [address] [place] [address] Dr. Neil Krishnamurthy TSHon 07-13-2022 TSH 1.166 uIU/mL Normal 0.358-3.740 [facility] Comment on above: Performed By: #### O X24HR #### [facility] [address] [place] [address] Dr. Neil Krishnamurthy VITAMIN D 25 OHon 07-13-2022 VIT D 25-OH 23.8 ng/mL Normal [facility] Comment on above: Performed By: #### V ITAD #### [facility] [address] [place] [address] Dr. Neil Krishnamurthy VIT D RANGES SEE BELOW Normal [facility] Comment on above: Result Comment: <20 ng/mL Vit D deficient 20 - <30 ng/mL Vit D insufficient 30 - 100 ng/mL Vit D sufficient >100 ng/mL Potential Toxicity Performed By: #### V ITAD #### [facility] [address] [place] [address] Dr. Neil Krishnamurthy MG MAMM SCREEN 3D MARKEL CADon 06-23-2022 MG MAMM SCREEN 3D MARKEL CAD Patient: LUL PELAEZ Exam Date: 06/23/2022 : 1985 Gender:F Ordering : DR KATHY BARRAGAN . Admission #: [id number] Family : Order #: [id number] CLICK HERE TO VIEW EXAM RADIOLOGY REPORT [...] cervical cancer at age 31. LOCATION: [facility] BREAST COMPOSITION: Heterogeneously dense,which may [...] LUMP SHOULD BE BIOPSIED. Dictated by: Ric Gurrola MD on 06/23/2022 at 11:15 Approved by: Ric Gurrola MD on 06/23/2022 at 11:17 Normal [facility] PAP ACOG PANEL 2: 30 to 65on 06-16-2022 . . Normal [facility] Comment on above: Result Comment: Perf ormed at: WB Performed By: #### C O2, CL, BUN, CREA, URIC, K, CA, NA #### [facility] [address] [address] [address] Neil Krishnamurthy Age Gdln ACOG Testing 30-65 Normal [facility] Comment on above: Performed By: #### C O2, CL, BUN, CREA, URIC, K, CA, NA #### [facility] [address] [address] [address] Neil Krishnamurthy DIAGNOSIS: Comment Normal [facility] Comment on above: Result Comment: NEGA TIVE FOR INTRAEPITHELIAL LESION OR MALIGNANCY. Performed at: WB Performed By: #### C O2, CL, BUN, CREA, URIC, K, CA, NA #### [facility] [address] [address] [address] Neil Krishnamurthy HPV Aptima Negative Normal Negative [facility] Comment on above: Result Comment: This nucleic acid amplification test detects fourteen high-risk HPV types (16,18,31,33,35,39,45,51,52,56,58,59,66,68) without differentiation. Performed at: =G Performed By: #### C O2, CL, BUN, CREA, URIC, K, CA, NA #### [facility] [address] [address] [address] Neil Krishnamurthy Methodology: Comment Normal [facility] Comment on above: Result Comment: This liquid based ThinPrep(R) pap test was screened with the use of an image guided system. Performed at: WB Performed By: #### C O2, CL, BUN, CREA, URIC, K, CA, NA #### [facility] [address] [address] [address] Neil Krishnamurthy Note: Comment Normal [facility] Comment on above: Result Comment: [...] BUN, CREA, URIC, K, CA, NA #### [facility] [address] [place] [address] Dr. Neil Krishnamurthy Performed by: Comment Normal [facility] Comment on above: Result Comment: Fang Song, Gristmiller (ASCP) Performed at: WB Performed By: #### C O2, CL, BUN, CREA, URIC, K, CA, NA #### [facility] [address] [place] [address] Dr. Neil Krishnamurthy Specimen adequacy: Comment Normal [facility] Comment on above: Result Comment: Sati sfactory for evaluation. Endocervical and/or squamous metaplastic cells (endocervical component) are present. Performed at: WB Performed By: #### C O2, CL, BUN, CREA, URIC, K, CA, NA #### [facility] [address] [address] [address] Neil Krishnamurthy VAGINITIS/VAGINOSIS DNA PROB Jovi 06-03-2022 Rachel species Negative Normal Negative [facility] Comment on above: Performed By: #### V AGINT #### [facility] [address] [address] [address] Neil Krishnamurthy Gardnerella vaginalis Positive Abnormal Negative [facility] Comment on above: Performed By: #### V AGINT #### [facility] [address] [place], [place] [address] Dr. Neil Krishnamurthy Trichomonas vaginalis Negative Normal Negative [facility] Comment on above: Performed By: #### V AGINT #### [facility] [address] [place], [place] [address] Dr. Neil Krishnamurthy COVID Quick Testingon 2020 Result Positive [employer] Other XR ABDOMEN LIMITED (KUB)on XR ABDOMEN LIMITED (KUB) EXAMINATION:SUPINE VIEW(S) OF THE [id number]/08/2017 1:38 pmCOMPARISON:October 19, 2010HISTORY:ORDERING SYSTEM PROVIDED HISTORY: Kidney stonesTECHNOLOGIST PROVIDED HISTORY:Reason for exam:->kidney stonesOrdering Physician Provided Reason for Exam: bilat kidney stonesAcuity: AcuteType of Exam: InitialFINDINGS:Surgic al clips in the gallbladder fossa prior cholecystectomy. There are noabnormal calcifications seen overlying the kidneys along the course of theureters. The osseous structures appear unremarkable.IMPRESSIO N: No acute abnormality.Interprete d by:TIMBO Menendzeigned by:Raheel Morales MD07/08/17Final result Normal [facility] Vital Signs Date Time Vital Sign Value Performing Clinician Facility 05-30-2025 15:31-0400 Body height 152.4 cm PHYSICIAN NO [facility] 05-30-2025 15:31-0400 Body mass index (BMI) [Ratio] 42.5 kg/m2 PHYSICIAN NO [facility] 05-30-2025 15:31-0400 Body temperature 98.5 [degF] PHYSICIAN NO [place] 05-30-2025 15:31-0400 Body weight 98.88 kg PHYSICIAN NO [facility] 05-30-2025 15:31-0400 Diastolic blood pressure 90 mm[Hg] PHYSICIAN NO [facility] 05-30-2025 15:31-0400 Heart rate 69 /min PHYSICIAN NO [facility] 05-30-2025 15:31-0400 Respiratory rate 16 /min PHYSICIAN NO [place] 05-30-2025 15:31-0400 SaO2% (BldA) [Mass fraction] 99 % PHYSICIAN [facility] 05-30-2025 15:31-0400 Systolic blood pressure 110 mm[Hg] PHYSICIAN [facility] 03-26-2025 14:42-0400 Body height 152.4 cm Kirby Alberto MD Work Phone: [facility] 03-26-2025 14:42-0400 Body mass index (BMI) [Ratio] 42.77 kg/m2 Kirby Alberto MD Work Phone: [facility] 03-26-2025 14:42-0400 Body temperature 97.11 [degF] Kirby Alberto MD Work Phone: [facility] 03-26-2025 14:42-0400 Body weight 99.34 kg Kirby Alberto MD Work Phone: [facility] 03-26-2025 14:42-0400 Diastolic blood pressure 68 mm[Hg] Kirby Alberto MD Work Phone: [facility] 03-26-2025 14:42-0400 Heart rate 100 /min Kirby Alberto MD Work Phone: [facility] 03-26-2025 14:42-0400 Respiratory rate 20 /min Kirby Alberto MD Work Phone: [facility] 03-26-2025 14:42-0400 SaO2% (BldA) [Mass fraction] 99 % Kirby Alberto MD Work Phone: [facility] 03-26-2025 14:42-0400 Systolic blood pressure 132 mm[Hg] Kirby Alberto MD Work Phone: [facility] 09-25-2024 15:48-0500 Body mass index (BMI) [Ratio] 45.99 kg/m2 Kirby Alberto MD Work Phone: [facility] 09-25-2024 15:48-0500 Body temperature 98.29 [degF] Kirby Alberto MD Work Phone: [facility] 09-25-2024 15:48-0500 Body weight 106.81 kg Kirby Alberto MD Work Phone: [facility] 09-25-2024 15:48-0500 Diastolic blood pressure 70 mm[Hg] Kirby Alberto MD Work Phone: [facility] 09-25-2024 15:48-0500 Heart rate 97 /min Kirby Alberto MD Work Phone: [facility] 09-25-2024 15:48-0500 SaO2% (BldA) [Mass fraction] 97 % Kirby Alberto MD Work Phone: [facility] 09-25-2024 15:48-0500 Systolic blood pressure 122 mm[Hg] Kirby Alberto MD Work Phone: [facility] 07-30-2024 15:48-0500 Blood Pressure Location Anna JERRY [facility] 07-30-2024 15:48-0500 Diastolic blood pressure 95 mm[Hg] Anna JERRY [facility] 07-30-2024 15:48-0500 Heart rate 79 /min Anna JERRY [facility] 07-30-2024 15:48-0500 Respiratory rate 18 /min Anna JERRY [facility] 07-30-2024 15:48-0500 Systolic blood pressure 128 mm[Hg] Anna JERRY [facility] 07-05-2024 11:45-0400 Body height 152.4 cm Kirby Alberto MD Work Phone: [facility] 07-05-2024 11:45-0400 Body mass index (BMI) [Ratio] 44.72 kg/m2 Kirby Alberto MD Work Phone: [facility] 07-05-2024 11:45-0400 Body temperature 97.81 [degF] Kirby Alberto MD Work Phone: [facility] 07-05-2024 11:45-0400 Body weight 103.87 kg Kirby Alberto MD Work Phone: [facility] 07-05-2024 11:45-0400 Diastolic blood pressure 78 mm[Hg] Kirby Alberto MD Work Phone: [facility] 07-05-2024 11:45-0400 Heart rate 97 /min Kirby Alberto MD Work Phone: [facility] 07-05-2024 11:45-0400 Respiratory rate 20 /min Kirby Alberto MD Work Phone: [facility] 07-05-2024 11:45-0400 SaO2% (BldA) [Mass fraction] 98 % Kirby Alberto MD Work Phone: [facility] 07-05-2024 11:45-0400 Systolic blood pressure 136 mm[Hg] Kirby Alberto MD Work Phone: [facility] 06-05-2024 15:15-0400 Body height 152.4 cm Kirby Alberto MD Work Phone: [facility] 06-05-2024 15:15-0400 Body mass index (BMI) [Ratio] 45.5 kg/m2 Kirby Alberto MD Work Phone: [facility] 06-05-2024 15:15-0400 Body temperature 97.81 [degF] Kirby Alberto MD Work Phone: [facility] 06-05-2024 15:15-0400 Body weight 105.69 kg Kirby Alberto MD Work Phone: [facility] 06-05-2024 15:15-0400 Diastolic blood pressure 78 mm[Hg] Kirby Alberto MD Work Phone: [facility] 06-05-2024 15:15-0400 Heart rate 102 /min Kirby Alberto MD Work Phone: [facility] 06-05-2024 15:15-0400 Respiratory rate 20 /min Kirby Alberto MD Work Phone: [facility] 06-05-2024 15:15-0400 SaO2% (BldA) [Mass fraction] 98 % Kirby Alberto MD Work Phone: [facility] 06-05-2024 15:15-0400 Systolic blood pressure 130 mm[Hg] Kirby Alberto MD Work Phone: [facility] 05-14-2024 10:30-0400 Body height 152.4 cm Gorge Weldon PA-C Work Phone: [facility] 05-14-2024 10:30-0400 Body mass index (BMI) [Ratio] 42.97 kg/m2 Gorge Weldon PA-C Work Phone: [facility] 05-14-2024 10:30-0400 Body temperature 98.01 [degF] Gorge YEE-Mehdi Work Phone: [facility] 05-14-2024 10:30-0400 Body weight 99.79 kg Gorge YEE-Mehdi Work Phone: [facility] 05-07-2024 10:33-0400 Diastolic blood pressure 87 mm[Hg] Jarred Negrete MD Work Phone: [facility] 05-07-2024 10:33-0400 Heart rate 65 /min Jarred Negrete MD Work Phone: [facility] 05-07-2024 10:33-0400 Respiratory rate 16 /min Jarred Negrete MD Work Phone: [facility] 05-07-2024 10:33-0400 SaO2% (BldA) [Mass fraction] 98 % Jarred Negrete MD Work Phone: [facility] 05-07-2024 10:33-0400 Systolic blood pressure 135 mm[Hg] Jarred Negrete MD Work Phone: [facility] 05-07-2024 09:33-0400 Body temperature 96.8 [degF] Jarred Negrete MD Work Phone: [facility] 05-07-2024 06:50-0400 Body height 152.4 cm Jarred Negrete MD Work Phone: [facility] 05-07-2024 06:50-0400 Body mass index (BMI) [Ratio] 42.45 kg/m2 Jarred Negrete MD Work Phone: [facility] 05-07-2024 06:50-0400 Body weight 98.6 kg Jarred Negrete MD Work Phone: [facility] 03-15-2024 12:31-0400 Body height 152.4 cm Jarred Negrete MD Work Phone: [facility] 03-15-2024 12:31-0400 Body mass index (BMI) [Ratio] 42.46 kg/m2 Jarred Negrete MD Work Phone: [facility] 03-15-2024 12:31-0400 Body weight 98.61 kg Jarred Negrete MD Work Phone: [facility] 09-22-2023 12:00-0500 Body height 152.4 cm Elisabeth Ma Other [employer] [facility] [employer] Other 09-22-2023 12:00-0500 Body mass index (BMI) [Ratio] 41.87 kg/m2 Elisabeth Ma Other [employer] [facility] [employer] Other 09-22-2023 12:00-0500 Body temperature 97.7 [degF] Elisabeth Ma Other [employer] Other 09-22-2023 12:00-0500 Body weight 97.25 kg Elisabeth Ma Other [employer] Other 09-22-2023 12:00-0500 Diastolic blood pressure 86 mm[Hg] Elisabeth Ma Other [employer] Other 09-22-2023 12:00-0500 Respiratory rate 18 /min Elisabeth Ma Other [employer] Other 09-22-2023 12:00-0500 SaO2% (BldA) [Mass fraction] 99 % Elisabeth Ma Other [employer] Other 09-22-2023 12:00-0500 Systolic blood pressure 124 mm[Hg] Elisabeth Ma Other [employer] Other 03-06-2023 13:50-0400 Body height 152.4 cm Leana Soler Other [employer] Other 03-06-2023 13:50-0400 Body mass index (BMI) [Ratio] 42.3 kg/m2 Leana Soler Other [employer] Other 03-06-2023 13:50-0400 Body temperature 98.2 [degF] Leana Soler Other [employer] Other 03-06-2023 13:50-0400 Body weight 98.25 kg Leana Soler Other [employer] Other 03-06-2023 13:50-0400 Diastolic blood pressure 76 mm[Hg] Leana Soler Other [employer] Other 03-06-2023 13:50-0400 Respiratory rate 18 /min Leana Karlene Other [employer] Other 03-06-2023 13:50-0400 SaO2% (BldA) [Mass fraction] 100 % Leana Khanley Other [employer] Other 03-06-2023 13:50-0400 Systolic blood pressure 111 mm[Hg] Leana Karlene Other [employer] Other 09-01-2022 17:15-0500 Body height 152.4 cm Jennyfer Maravillamond Other [employer] Other 09-01-2022 17:15-0500 Body mass index (BMI) [Ratio] 41.98 kg/m2 Jennyfer Maravillamond Other [employer] Other 09-01-2022 17:15-0500 Body temperature 98.4 [degF] Jennyfer Maravillamond Other [employer] Other 09-01-2022 17:15-0500 Body weight 97.52 kg Jennyfer Maravillamond Other [employer] Other 09-01-2022 17:15-0500 Respiratory rate 18 /min Jennyfer Maravillamond Other [employer] Other 09-01-2022 17:15-0500 SaO2% (BldA) [Mass fraction] 99 % Jennyfer Sara Other [employer] Other 04-22-2022 14:30-0400 Body height 152.4 cm Jessenia Ortiz Other [employer] Other 04-22-2022 14:30-0400 Body mass index (BMI) [Ratio] 40.42 kg/m2 Jessenia Ortiz Other [employer] Other 04-22-2022 14:30-0400 Body weight 93.9 kg Jessenia Ortiz Other [employer] Other 04-22-2022 14:30-0400 Diastolic blood pressure 89 mm[Hg] Jessenia Ortiz Other [employer] Other 04-22-2022 14:30-0400 Respiratory rate 18 /min Jessenia Ortiz Other [employer] Other 04-22-2022 14:30-0400 SaO2% (BldA) [Mass fraction] 100 % Jessenia Ortiz Other [employer] Other 04-22-2022 14:30-0400 Systolic blood pressure 116 mm[Hg] Jessenia Ortiz Other [employer] Other 07-22-2021 11:00-0400 Body height 152.4 cm Jennyfer Sara Other [employer] Other 07-22-2021 11:00-0400 Body mass index (BMI) [Ratio] 38.08 kg/m2 Jennyfer Ruiz Other [employer] Other 07-22-2021 11:00-0400 Body temperature 96.2 [degF] Jennyfer Ruiz Other [employer] Other 07-22-2021 11:00-0400 Body weight 88.45 kg Jennyfer Ruiz Other [employer] Other 07-22-2021 11:00-0400 Respiratory rate 18 /min Jennyfer Ruiz Other [employer] Other 07-22-2021 11:00-0400 SaO2% (BldA) [Mass fraction] 99 % Jennyfer Ruiz Other [employer] Other Encounters Encounter Date Encounter Type Care Provider Facility Start: 07-29-2025 ambulatory Anna Melo ty:PADMINI Escalante Start: 05-30-2025 End: 05-30-2025 ambulatory PHYSICIAN [facility] Work Phone: Start: 05-30-2025 End: 05-30-2025 Patient encounter procedure Kirby Alberto MD -[facility] [place] Work Phone: Start: 04-26-2025 End: 04-29-2025 Refill Kirby Ablerto MD Work Phone: [facility] Comment on above: Obstructive sleep ap beatriz (adult) (pediatric) Start: 03-26-2025 End: 03-26-2025 Office outpatient visit 25 minutes Kirby Alberto MD Work Phone: [facility] Comment on above: Migraine without aur a and without status migrainosus, not intractable (Primary Dx); Sleep apnea with hypersomnolence; Bilateral leg edema; Generalized anxiety disorder ; Insomnia due to mental condition Start: 03-26-2025 End: 03-26-2025 Bamboo flowsheet Kirby Alberto MD Work Phone: [facility] Start: 03-26-2025 End: 03-26-2025 Bamboo flowsheet Kirby Alberto MD Work Phone: [facility] Start: 03-26-2025 End: 03-27-2025 Refill Kirby Alberto MD Work Phone: [facility] Comment on above: Obstructive sleep ap beatriz (adult) (pediatric) Start: 01-31-2025 End: 01-31-2025 Refill Kirby Alberto MD Work Phone: [facility] Comment on above: Obstructive sleep ap beatriz (adult) (pediatric) Start: 01-01-2025 End: 01-01-2025 Refill Kirby Alberto MD Work Phone: [facility] Comment on above: Migraine without aur a and without status migrainosus, not intractable (CMS/HCC); Obstructive sleep apnea (adult) (pediatric) Start: 12-12-2024 End: 12-12-2024 Patient encounter procedure Llu Chang DO Work Phone: [facility] Comment on above: Paresthesia (Primary Dx); Pain in both wrists Start: 12-12-2024 End: 12-12-2024 ambulatory LULSAMM CHANG Not Available Start: 12-12-2024 End: 12-12-2024 Bamboo flowsheet Lul Bernardo DO Work Phone: [facility] Start: 12-12-2024 End: 12-12-2024 Bamboo flowsheet Lul Bernardo DO Work Phone: [facility] Start: 12-05-2024 End: 12-06-2024 Refill Kirby Alberto MD Work Phone: [facility] Comment on above: Obstructive sleep ap beatriz (adult) (pediatric) Start: 11-05-2024 End: 11-05-2024 Refill Kirby Alberto MD Work Phone: [facility] Comment on above: Obstructive sleep ap beatriz (adult) (pediatric) Start: 10-01-2024 End: 10-01-2024 Refill Kirby Alberto MD Work Phone: [facility] Comment on above: Obstructive sleep ap beatriz (adult) (pediatric) Start: 09-25-2024 End: 09-25-2024 Office outpatient visit 25 minutes Kirby Alberto MD Work Phone: [facility] Comment on above: Migraine without aur a and without status migrainosus, not intractable (CMS/HCC) (Primary Dx); Generalized anxiety disorder (CMS/HCC); Sleep apnea with hypersomnolence; Bilateral leg edema; Class 3 severe obesity due to excess calories with serious comorbidity and body mass index (BMI) of 45.0 to 49.9 in adult (CMS/HCC) Start: 09-25-2024 End: 09-25-2024 ambulatory KIRBY ALBERTO Not Available Start: 09-25-2024 End: 09-25-2024 Bamboo flowsheet Kirby Alberto MD Work Phone: [facility] Start: 09-25-2024 End: 09-25-2024 Dolores flowsheet Kirby Alberto MD Work Phone: [facility] Start: 08-31-2024 End: 08-31-2024 Clinisync Result Encounter Generic External Data Provider [facility] Unsolicited Start: 08-31-2024 End: 08-31-2024 Clinisync Result Encounter Generic External Data Provider [facility] External Department Unsolicited Start: 08-31-2024 End: 08-31-2024 Refill Kirby Alberto MD Work Phone: [facility] Comment on above: Obstructive sleep ap beatriz (adult) (pediatric) Start: 08-02-2024 End: 08-02-2024 Refill Kirby Alberto MD Work Phone: [facility] Comment on above: Obstructive sleep ap beatriz (adult) (pediatric) Start: 07-30-2024 End: 07-30-2024 ambulatory Anna JERRY Facility:[facility] Start: 07-30-2024 End: 07-30-2024 Patient encounter procedure Anna JERRY [facility] Start: 07-05-2024 End: 07-05-2024 Bamboo flowsheet [...] ALBERTO Not Available Start: 06-18-2024 End: 06-18-2024 Clinisync Result Encounter Generic External Data Provider [facility] External Department Unsolicited Start: 06-18-2024 End: 06-18-2024 Clinisync Result Encounter Generic External Data Provider [facility] External Department Unsolicited Start: 06-18-2024 End: 06-18-2024 ambulatory Joanne Cameron MD [facility] Start: 06-05-2024 End: 06-05-2024 Office outpatient visit 25 minutes Kirby Alberto MD Work Phone: [facility] Comment on above: Obstructive sleep ap beatriz (adult) (pediatric) (Primary Dx); Generalized anxiety disorder (CMS/HCC); Migraine without aura and without status migrainosus, not intractable (CMS/HCC); Bilateral leg edema; Thoracic spondyloarthritis Start: 06-05-2024 End: 06-05-2024 Refill Kirby Alberto MD Work Phone: [facility] Comment on above: Obstructive sleep ap beatriz (adult) (pediatric) Start: 06-04-2024 End: 06-04-2024 ambulatory Joanne Cameron MD Facility:[facility] Start: 05-27-2024 End: 05-28-2024 Refill Kirby Alberto MD Work Phone: [facility] Comment on above: Obstructive sleep ap beatriz (adult) (pediatric) Start: 05-14-2024 End: 05-14-2024 ambulatory [facility] Start: 05-14-2024 End: 05-14-2024 Postop follow up visit related to original px Gorge Weldon PA-C Work Phone: [facility] Comment on above: Deviated nasal septu m Start: 05-07-2024 End: 05-07-2024 ambulatory JARRED Harding [facility] Start: 05-07-2024 End: 05-07-2024 Subsequent hospital visit by physician Jarred Negrete MD Work Phone: [facility] [place] Comment on above: Deviated nasal septu m (Primary Dx); Sore of lip Start: 04-16-2024 End: 04-16-2024 ambulatory Joanne Cameron MD Facility: [facility] Start: 03-26-2024 End: 03-26-2024 ambulatory KIRBY ALBERTO Not Available Start: 03-15-2024 End: 03-15-2024 Office consultation new/estab patient 40 min Jarred Negrete MD Work Phone: [facility] Comment on above: Nasal deformity (Evette milton Dx); Deviated nasal septum; Nasal congestion; Nasal obstruction; Hypertrophy of inferior nasal turbinate; Deviated septum; Facial pressure; Difficulty breathing Start: 03-15-2024 End: 03-15-2024 ambulatory JARRED Harding [facility] Start: 02-21-2024 End: 02-21-2024 ambulatory YOVANI Chen TIMMIS Not Available Start: 02-17-2024 End: 02-17-2024 ambulatory Yovani Chen Timmis Facility[place] Start: 02-17-2024 End: 02-17-2024 Patient encounter procedure Yovani Mottamikevyn [facility] Start: 01-16-2024 End: 01-16-2024 ambulatory YOVANI Chen TIMMIS Not Available Start: 12-20-2023 End: 12-20-2023 ambulatory KIRBY ALBERTO Not Available Start: 10-04-2023 End: 10-04-2023 ambulatory KIRBY ALBERTO Not Available Start: 09-22-2023 End: 09-22-2023 ambulatory Elisabeth Ma Other [employer] Other Start: 09-22-2023 Office outpatient vi sit 15 minutes Elisabeth Ma [facility] Start: 09-05-2023 End: 09-05-2023 ambulatory Joanne Cameron MD Facility:[facility] Start: 08-15-2023 End: 08-15-2023 ambulatory Joanne Cameron MD Facility:[facility] Start: 07-05-2023 End: 07-05-2023 Patient encounter procedure CHARLOTTE SCALES [facility] Start: 03-06-2023 End: 03-06-2023 Patient encounter procedure KEN Soler Work Phone: [facility] Work Phone: Start: 03-06-2023 End: 03-06-2023 ambulatory Leana Soler [employer] Other Start: 03-06-2023 Office outpatient vi sit [...] encounter procedure Anna JERRY [facility] Start: 10-02-2022 End: 10-03-[address] ANNA JERRY . Facility:[facility] Start: 09-01-2022 End: 09-01-2022 ambulatory Jennyfer Ruzi Other [employer] Other Start: 09-01-2022 Office outpatient vi sit 15 minutes Jennyferthierry Ruiz [facility] Start: 08-27-2022 End: 08-28-[address] RIC GURROLA Facility:[facility] Start: 07-18-2022 Encounter for genera l adult medical examination without abnormal findings DR KIRBY ALBERTO [facility] Start: 07-13-2022 End: [address] KIRBY ALBERTO Facility:[facility] Start: 07-13-2022 End: 2022 Encounter for general adult medical examination without abnormal findings DR KIRBY ALBERTO Facility:[facility] Start: 06-23-2022 End: 06-24-[address] KATHY BARRAGAN . Facility:[facility] Start: 06-09-2022 End: 06-09-[address] KATHY BARRAGAN . Facility:[facility] Start: 06-02-2022 End: 06-02-[address] DOCTOR GOODSON Facility:[facility] Start: 04-22-2022 End: 04-22-2022 ambulatory Jessenia Ortiz Other [employer] Other Start: 04-22-2022 Office outpatient vi sit 15 minutes Jessenia Ortiz [facility] Start: 07-22-2021 End: 07-22-2021 ambulatory Jennyfer Ruiz Other [employer] Other Start: 07-22-2021 Office outpatient vi sit 15 minutes Jennyfer Sara [facility] Start: 07-08-2017 End: 07-09-2017 Ambulatory [facility] Procedures Date Procedure Procedure Detail Performing Clinician Start: 12-12-2024 End: 12-12-2024 Needle emg ea extremty w/paraspinl area complete Lul Bernardo DO Work Phone: Start: 08-31-2024 [facility] ELECTROLYTES Generi c External Data Provider Start: 06-18-2024 HCG QUALITATIVE* Generi c External Data Provider Start: 06-18-2024 Procedure on back Patri jasvir [employer] Start: 06-04-2024 Procedure on back Patri ck [employer] Start: 05-07-2024 PULSE OXIMETRY, CONTINUOUS Boris Frias MD Work Phone: Start: 05-07-2024 Urine test visual color cmprsn luis eduardos Jarred Negrete MD Work Phone: Start: 05-07-2024 Nasal septoplasty [employer] Start: 05-07-2024 Nose - repair or liset stic operation Anna JERRY Start: 03-06-2023 X-ray of left foot [employer]ET[employer]LYT[employer] SPECIALIST Leanazakiya Soler Work Phone: Start: 07-08-2017 X-ray exam of abdomen S YAJAIRA SCHUMACHER Appendectomy Annaissa JERRY Cholecystectomy Anna KAISER Colonoscopy Anna JERRY Hernia of abdominal cavity (disorder) Anna JERRY Ligation of fallopian tube P atrick JERRY Lithotripsy Annaissa JERRY Plan of Treatment Date Care Activity Detail Author Start: 2036 Zoster Vaccines (1 o f 2) Zoster Vaccines (1 of 2) [facility] Start: 05-30-2025 End: 05-30-2025 Patient encounter procedure 05/30/2025 3:00 PM EDT Office Visit [facility] [address] [place] [address] Kirby Alberto MD [address] [place] [address] [facility] Start: 05-20-2025 Influenza vaccination [facility] Start: 03-26-2025 End: 03-26-2025 Patient encounter procedure [facility] Comment on above: Arrived Start: 12-12-2024 End: 12-12-2024 Patient encounter procedure ANNA MADERA Comment on above: Arrived Start: 09-25-2024 End: 09-25-2024 Patient encounter procedure [facility] Comment on above: Arrived Start: 07-05-2024 End: 07-05-2024 Patient encounter procedure 07/05/2024 11:45 AM EDT Office Visit [facility] [address] [place] [address] Kirby Alberto MD [address] [place] [address] Arrived [facility] Comment on above: Arrived Start: 06-05-2024 End: 06-05-2024 Patient encounter procedure 06/05/2024 3:00 PM EDT Office Visit [facility] [address] [place] [address] Kirby Alberto MD [address] [place] [address] [facility] Start: 05-20-2024 Influenza vaccination [facility] Start: 05-14-2024 End: 05-14-2024 Patient encounter procedure 05/14/2024 10:15 AM EDT Office Visit [facility] [address] [place] [address] Gorge Weldon PA-C [address] [facility] Department [place] [address] [facility] Start: 05-07-2024 Subsequent hospital visit by physician 05/07/2024 Hospital Encounter [facility] [place] [address] [place] [id number] [place] [address] [place] [address] [facility] [place] Start: 05-07-2024 End: 05-07-2024 Septoplasty/submucous resecj w/wo cartilage grf Repair Septum Nasal Cavity with Reduction Turbinate Deviated nasal septum Nasal congestion Nasal turbinate hypertrophy Nasal deformity 05/07/2024 7:51 AM EDT [facility] Start: 05-20-2023 COVID-19 Vaccine () COVID-19 Vaccine () [facility] Start: 05-11-2020 DTaP/Tdap/Td Vaccine s (3 - Td or Tdap) DTaP/Tdap/Td Vaccines (3 - Td or Tdap) [facility] Start: 2016 Screening for malign ant neoplasm of cervix [facility] Start: 2007 Screening for malign ant neoplasm of cervix [facility] Start: 2004 Diabetes mellitus screening Diabetes Screening [facility] Start: 2004 Hepatitis C screening Hepatitis C [facility] Start: 1986 HIV screening HIV Screening [facility] Start: 1986 Lipid panel Lipid Panel [facility] Start: 1986 Yearly Adult Physical Yearly Adult P hycal [facility] Comprehensive metabo lic 2000 panel - Serum or Plasma [facility] Septoplasty/submucou s resecj w/wo cartilage grf Repair Septum Nasal Cavity with Reduction Turbinate Deviated nasal septum Nasal congestion Nasal turbinate hypertrophy Nasal deformity [facility] Immunizations Immunization Date Immunization Notes Care Provider Fa cility 05-11-2010 tetanus toxoid, redu jose juan diphtheria toxoid, and acellular pertussis vaccine, adsorbed Annaissa JERRY [facility] 01-10-2007 varicella virus vaccine Patr jorje JERRY [facility] 12-07-2006 varicella virus vaccine Patr jorje JERRY [facility] 04-25-2006 hepatitis B vaccine, pediatric or pediatric/adolescent dosage Anna JERRY [facility] 12-20-2005 hepatitis B vaccine, pediatric or pediatric/adolescent dosage Anna JERRY [facility] 11-15-2005 hepatitis B vaccine, pediatric or pediatric/adolescent dosage Anna JERRY [facility] 03-10-1999 diphtheria, tetanus toxoids and acellular pertussis vaccine, unspecified formulation Kirby Alberto MD Work Phone: [facility] 03-10-1999 DTaP, unspecified formulation Anna JERRY [facility] 03-10-1999 measles, mumps and rubella virus vaccine Anna JERRY [facility] Payers Date Payer Category Payer Worker's Compensation [employer] [id number] 2023 Self-pay 2022 Medicaid [id number] 2020 Private Health Insurance [id number] 2020 Unknown 2017 Unknown [id number] 2.16.840.1.415960.19 1986 Unknown [id number] 2.16.840.1.348400.3.579.2 .593 1986 Unknown [id number] 2.16.840.1.328779.3.579.2 .593 1986 Unknown [id number] 2.16.840.1.506697.3.579.2 .593 1986 Unknown [id number] 2.16.840.1.765362.3.579.2 .593 1986 Unknown [id number] 2.16.840.1.371041.3.579.2 .593 1986 Unknown [id number] 2.16.840.1.692603.3.579.2 .593 1986 Unknown [id number] 2.16.840.1.226978.3.579.2 .593 1986 Unknown [id number] 2.16.840.1.742214.3.579.2 .593 1986 Unknown [id number] 2.16.840.1.622064.3.579.2 .593 1986 Unknown [id number] 2.16.840.1.750609.3.579.2 .593 1986 Unknown [id number] 2.16.840.1.815016.3.579.2 .593 1986 Unknown [id number] 2.16.840.1.844333.3.579.2 .1259 1986 Unknown [id number] 2.16.840.1.839881.3.579.2 .1259 1986 Unknown [id number] 2.16.840.1.522673.3.579.2 .1259 1986 Unknown [id number] 2.16.840.1.064440.3.579.2 .1259 1986 Unknown [id number] 2.16.840.1.262800.3.579.2 .1259 1986 Unknown [id number] 2.16.840.1.584634.3.579.2 .1244 1986 Unknown [id number] 2.16.840.1.883350.3.579.2 .1244 1986 Unknown [id number] 2.16.840.1.691463.3.579.2 .1245 1986 Unknown [id number] 2.16.840.1.878340.3.579.2 .196 1986 Unknown [id number] 2.16.840.1.783380.3.579.2 .196 1986 Unknown [id number] 2.16.840.1.553805.3.579.2 .196 1986 Unknown [id number] 2.16.840.1.066175.3.579.2 .196 1986 Unknown [id number] 2.16.840.1.676671.3.579.2 .196 1986 Unknown [id number] 2.16.840.1.802513.3.579.2 .727 1986 Unknown [id number] 2.16.840.1.518428.3.579.2 .727 1986 Unknown [id number] 2.16.840.1.393761.3.579.2 .727 1986 Unknown [id number] 2.16.840.1.549469.3.579.2 .1259 1986 Unknown [id number] 2.16.840.1.568224.3.579.2 .1259 1986 Unknown [id number] 2.16.840.1.628032.3.579.2 .1259 1986 Unknown [id number] 2.16.840.1.785137.3.579.2 .1259 1986 Unknown [id number] 2.16.840.1.026861.3.579.2 .9 1986 Unknown [id number] 2.16.840.1.239699.3.579.2 .1259 1959 Unknown [id number] 1959 Unknown [id number] 2.16.840.1.869045.19 1959 Unknown [id number] Unknown [id number] 2.16.840.1.701983.19 Unknown [id number] 2.16.840.1.770257.3.579.2 .531 Social History Date Type Detail Facility Unknown if ever smoked [employer] Other Start: 09-27-2023 End: 03-25-2025 [facility] Assigned At [facility] Start: 10-04-2022 End: 03-15-2024 Tobacco smoking status Never smoked tobacco (finding) [facility] Start: 1985 Sex Assigned At Female [facility] Start: 10-04-2023 End: 11-27-2023 Tobacco smoking status NHIS Ex-smoker [facility] History of tobacco use Current smoker [facility] History of tobacco use Cigarette Smoker [facility] Start: 10-04-2023 End: 03-25-2025 Cigarettes smoked current (pack per day) - Reported 0.3 [facility] Start: 10-04-2023 Tobacco use and exposure Smokeless tobacco non-user [facility] Start: 06-05-2024 End: 03-26-2025 Alcoholic beverage intake Lifetime non-drinker (finding) [facility] [...] Only a little [facility] (I/We) worried justa er (my/our) food would run out before (I/we) got money to buy more. Never true [facility] Start: 09-29-2023 End: 03-15-2024 Tobacco Comment Vape [facility] Work Phone: Start: 1985 Sex assigned at Not on file U [facility] Work Phone: Tobacco Vape Tobacco Use :. Current vaping or e-cigarette use Smokeless Tobacco Use:. Vaping [facility] Tobacco smoking status No Smokin g Status Entered [facility] Start: 03-15-2024 Tobacco use and exposure User of smokeless tobacco [facility] Work Phone: Start: 03-15-2024 End: 05-14-2024 Alcoholic beverage intake Ex-drinker (finding) [facility] Work Phone: Start: 03-05-2024 End: 05-14-2024 Exposure to SARS-CoV-2 (event) Not sure [facility] Are you now , , , , never or living with a partner? [facility] How hard is it for y ou to pay for the very basics like food, housing, medical care, and heating Hard [facility] Do you feel stress - tense, restless, nervous, or anxious, or unable to sleep at night because your mind is troubled all the time - these days [OSQ] Rather much [facility] (I/We) worried wheth er (my/our) food would run out before (I/we) got money to buy more. Sometimes true [facility] Sex Female (finding) [facility] NEGATED: Highlighted row N [facility] Functional Status Date Assessment Result Facility 07-30-2024 Functional Status N/A [facility] 07-05-2023 Functional Status N/A [facility] 10-04-2022 Functional Status N/A [facility] Clinical Notes 07-22-2021 to 03-27-2025 Telephone Encounter - Kirby Alberto MD - 03/27/2025 11:50 AM EDTTelephone Encounter - Kirby Alberto MD - 03/27/2025 11:50 AM EDTMsin Alberto MD - 03/26/2025 3:21 PM EDTDischarge Instructions Note Date & Type Note Facility 03-27-2025 Telephone encounter Note [facility] 03-27-2025 Miscellaneous Notes documented in this encounter [facility] 03-26-2025 History of Present illness Narrative Associated Problem(s): Sleep apnea with hypersomnolence Fatigue improved with medication and continue adderall. Associated Problem(s): Migraine without aura and without status migrainosus, not intractable GALLO stable and use fioricet PRN. Associated Problem(s): Insomnia due to mental condition Not sleeping well and try restoril. Associated Problem(s): Generalized anxiety disorder Symptoms controlled with paxil and continue. Associated Problem(s): Bilateral leg edema Edema controlled with medication and continue. Elevate legs PRN. Images from the original note were not included. Subjective Patient ID: Lul Gurrola is a 39 y.o. female who presents for Follow-up (6m/) and Foot Swelling (Left foot). Follow up SHERRON, migraines, anxiety, and edema. Patient stable today. Fatigue controlled with adderall and more energy. Able to stay awake and overall less fatigue. Able to get though work day without difficulty. Migraines doing well. GALLO 2-3 times a week. Throbbing pain in entire head associated with photophobia, phonophobia and nausea. Using fioricet PRN and typically helps. Anxiety stable. Recent divorce and increased stress but adjusting well. Not as stressed out or overwhelmed. Not as nervous or worry as much. Not as herman or irritable. C/o not sleeping well. Hard time falling asleep and not able to stop thinking or clear mind to fall asleep. Tried multiple OTC and not helping. Thinks not sleeping well adding to fatigue during the day. Edema controlled with medication. Mild swelling at end of day and if on feet a lot. Edema improved in am and with elevation. Review of Systems Respiratory: Negative for cough, [...] Assessment/Plan Problem List Items Addressed This Visit Generalized anxiety disorder Symptoms controlled with paxil and continue. Bilateral leg edema Edema controlled with medication and continue. Elevate legs PRN. Relevant Medications furosemide (Lasix) 40 MG tablet Migraine without aura and without status migrainosus, not intractable - Primary GALLO stable and use fioricet PRN. Sleep apnea with hypersomnolence Fatigue improved with medication and continue adderall. Insomnia due to mental condition Not sleeping well and try restoril. Relevant Medications temazepam (Restoril) 15 MG capsule documented in this encounter [facility] 12-12-2024 History of Present illness Narrative Images from the original note were not included. Reason for Appointment: EMG Patient: Lul Pelaez : 1985 EMG Computer: [employer] Referring Physician: Jb Renae CNP EMG: IRWIN marble setter: Kendell Corado RT(R) Office Location: [place] Reason for EMG: c/o numbness/tingling in bilateral hands R>L, neck pain into right shoulder, pain in 3rd 4th digits on right hand. No hx of DM. Not on blood thinners. Comments: Procedure was explained to the patient who expressed understanding. Patient appeared to have tolerated the test well despite some discomfort due to the nature of the test. documented in this encounter [facility] 09-25-2024 History of Present illness Narrative Associated Problem(s): Class 3 severe obesity due to excess calories with serious comorbidity and body mass index (BMI) of 45.0 to 49.9 in adult (CMS/HCC) Discussed proper diet and regular aerobic exercise. Recommend Weight Watchers and need to limit calories and smaller portions. Need to increase activity and regular aerobic exercise several days a week for 30 minutes at a time. Associated Problem(s): Migraine without aura and without status migrainosus, not intractable ([facility]) GALLO stable and continue elavil. Use fioricet PRN. Associated Problem(s): Generalized anxiety disorder ([facility]) Symptoms controlled with paxil and continue. Associated Problem(s): Bilateral leg edema Edema controlled with medication and continue. Elevate legs PRN. Associated Problem(s): Sleep apnea with hypersomnolence Fatigue improved with medication and continue adderall. Associated Problem(s): Obstructive sleep apnea (adult) (pediatric) (Resolved 09/25/2024) Fatigue improved with medication and continue adderall. Images from the original note were not included. Subjective Patient ID: Lul Pelaez is a 39 y.o. female who presents for Follow-up. Follow up SHERRON, migraines, anxiety, and edema. Patient doing well today. Fatigue controlled with adderall and more energy. Able to stay awake and overall less fatigue. Able to get though work day without difficulty. Migraines recently worse. GALLO 2-3 times a week. Throbbing pain in entire head associated with photophobia, phonophobia and nausea. Using fioricet PRN and typically helps. Anxiety stable. Not as stressed out or overwhelmed. Not as nervous or worry as much. Not as herman or irritable. Edema controlled with medication. Mild swelling at end of day and if on feet a lot. Edema improved in am and with elevation. Review of Systems Respiratory: Negative for cough, [...] Assessment/Plan Problem List Items Addressed This Visit Generalized anxiety disorder (CMS/HCC) Symptoms controlled with paxil and continue. Bilateral leg edema Edema controlled with medication and continue. Elevate legs PRN. Migraine without aura and without status migrainosus, not intractable (CMS/HCC) - Primary GALLO stable and continue elavil. Use fioricet PRN. Class 3 severe obesity due to excess calories with serious comorbidity and body mass index (BMI) of 45.0 to 49.9 in adult (CMS/HCC) Discussed proper diet and regular aerobic exercise. Recommend Weight Watchers and need to limit calories and smaller portions. Need to increase activity and regular aerobic exercise several days a week for 30 minutes at a time. Sleep apnea with hypersomnolence Fatigue improved with medication and continue adderall. documented in this encounter [facility] 07-30-2024 Hospital Discharge instructions Patient Education 07/30/2024 [...] include: ?8 oz (237 mL) of milk, okysgyd-vtxbzczeylhm-adqrz milk, and calcium-fortifiedfruit juice. Calcium-fortified means that [...] ?Spinach (cooked), rhubarb, beets, sweet potatoes, and Chinese chard. ?Peanuts. ?Potato chips, swedish fries, and baked potatoes with skin on. ?Nuts and nut products. ?Chocolate. If you regularly take a diuretic medicine, make sure to eat at least 1 or 2 servings of fruits or vegetables that are high in potassium each day. These include: ?Avocado. ?Banana. ?[place], prune, carrot, or tomato juice. ?Baked potato. [...] magnesium, fish oil, or vitamin B6. Take dwkg-dtd-mhjzazi and prescription medicines only as told by [...] Casseroles. Pizza. Lasagna. Frozen meals. Potato chips. Chinese fries. The items listed above may not [...] provider. Document Revised: 12/16/2022 Document Reviewed: 12/16/2022 [employer] Patient Education 2023 [employer]. Follow Up Care 07/05/2023 15:47:59 With:CLARITZA JOHNSTON, Anna Lorenzana, URL Address: [facility] [address] , [place] [address]- [phone] When: Unknown [facility] 07-30-2024 Note Patient Education Nephrology Dietary [...] ? 8 oz (237 mL) of milk, lbadvyq-wgkapfwlgvkc-kkttt milk, and calcium-fortifiedfruit juice. Calcium-fortified means that [...] Spinach (cooked), rhubarb, beets, sweet potatoes, and Chinese chard. ? Peanuts. ? Potato chips, swedish fries, and baked potatoes with skin on. ? Nuts and nut products. ? Chocolate. ??? If you regularly take a diuretic medicine, make sure to eat at least 1 or 2 servings of fruits or vegetables that are high in potassium each day. These include: ? Avocado. ? Banana. ? [place], prune, carrot, or tomato juice. ? Baked [...] fish oil, or vitamin B6. ??? Take peil-dzj-renihir and prescription medicines only as told by your health (more content not included)... [facility] 07-05-2024 History of Present illness Narrative Associated [...] were not included. Subjective Patient ID: Lul Pelaez is a 38 y.o. female who presents [...] 50 MG tablet documented in this encounter [facility] 06-05-2024 History of Present illness Narrative Associated [...] 24 hr capsule documented in this encounter [facility] 05-14-2024 History of Present illness Narrative Images from the original note were not included. Facial Plastic & Reconstructive Surgery POV s/p 05/07/24 SEPTOPLASTY, INFERIOR TURBINATE REDUCTION, NASAL VALVE REPAIR, RECONSTRUCTION OF NOSE Doing well, endorses improved breathing bilaterally Continues salt water sprays and ointment to nares Nasal splint removed Septum midline Nasal airway patent Incisions c/d/I Plan: Continue nasal saline sprays and ointment to nares RTC 4-6 months or sooner if needed Gorge Weldon PA-C documented in this encounter [facility] Work Phone: 05-07-2024 Hospital Discharge instructions Yanely Rdz RN - 05/07/2024 7:00 AM EDT Images from the original note were not included. Scopalamine patch may stay on for 72 hrs. Remove patch, discard away form pets, children. Do not touch eyes! Wash hands thoroughly Scopalamine patch may stay on for 72 hrs. Remove patch, discard away form pets, children. Do not touch eyes! Wash hands thoroughly Facial Plastic & Reconstructive Surgery NASAL SURGERY POST-OPERATIVE PATIENT INSTRUCTIONS At Home after Surgery: Head Elevation: Keep your head elevated (the height of 2 pillows is appropriate) for 3 days to help with swelling. Ice: Apply cold compresses to the cheeks and forehead, up to 20 minutes of each hour while awake after surgery, for the first 48 hours. This will help reduce swelling and bruising. Nasal Packing: If you have splints inside the nose that are sutured into place, they will be removed at your follow-up appointment. Nasal Care: Use nasal saline spray, 4 sprays to each nostril every hour while awake. This will help keep the nasal passages moist and prevent scabbing in the nose. It is normal to feel congested for several weeks after surgery. Do not blow your nose for two weeks after surgery. Incision/Cast Care: If you have an incision on the nose, apply antibiotic ointment (Bacitracin) using a Q-tip four times a day. The incision will heal most optimally if it is kept moist and clean. You can use hydrogen peroxide on Q-tips to gently clean any crusts. Do not rub but gently dab the incision to clean. If you have a cast or dressing on the outside of your nose, this will remain in place until your follow-up appointment. If the cast does fall off, do not worry. Tape it to your nose at nighttime while you sleep and if/when you wear glasses. Shower: You may shower 24 hours after surgery. Do not let the shower spray hit your face/nose directly and do not soak your face in water. If you have a cast or dressing on the outside of the nose, try to keep it as dry as possible. Towel blot your nose/cast after your shower. Bleeding: Most patients have mild, active bleeding the first night. Some blood-tinged drainage is normal for 1-2 weeks after surgery. Afrin nasal spray may be helpful for bleeding after surgery but should not be used for more than 3 days. Excessive bleeding that does not stop is not expected; please call the office or seek medical attention if this occurs. Medications: Take the medications as prescribed. For breakthrough pain, you can take Tylenol every 4-6 hours in addition to the narcotic pain medication prescribed. Resume all home medications the night of surgery unless otherwise directed. Continue to avoid aspirin and NSAIDs for one week after surgery. May take Tylenol at 1:45 pm Activity: Resume normal activities of daily living, as you feel able. However, avoid strenuous activity and heavy lifting (more than 10 lbs) for 4 weeks after surgery. Light activity such as walking may be resumed after 1 week after surgery. Sport activities may be resumed 1 month after surgery but try to protect your nose as it is still healing. Seek Medical Attention: Call the office or seek medical attention if you develop fever greater than 101 degrees, excessive bleeding, excessive pain that is not well-controlled, skin rash, visual disturbances, or other unusual symptoms. Follow-Up Care: First Appointment: You will return approximately one week after surgery for a post-operative appointment. If need, suture and cast/dressing removal will happen then. There are additional sutures inside your nose that will dissolve on their own. Postoperative Healing: Your nose will be swollen and will remain so for several weeks. It is important to keep in mind that although much of the swelling resolves over the first several weeks after surgery, it takes 12 to 15 months for all of the swelling in the nose to resolve. However, most patients have a good appearance even 2-3 weeks after the operation. Additional Appointments: Ideally, we would like to see you about 1-2 months after surgery to examine the healing. After this, the follow-up is quite variable, and depends on how you are doing and feeling. Often, this means visits at about 6 months and 12 months after surgery to follow your healing process. Please call your surgeon's office number listed below at any time if you have any questions or concerns and would like to be seen sooner than your next scheduled visit. Dr. Jarred Negrete: [phone] Dr. Florentino Vinson: [phone] Yara Aguirre RN & Kelsey Robbins RN. Evenings/Weekends Emergency Dr. Negrete: [phone] - please ask for the ENT resident on-call Evenings/Weekends Emergency Dr. Vinson: [phone] documented in this encounter [facility] Work Phone: 05-07-2024 History and physical note History Of Present Illness Lul Pelaez is a 38 y.o. female presenting with nasal airway obstruction, here today for nasal surgery. Past Medical History Past Medical History: Diagnosis Date Anxiety djd spine Arthritis Depression Deviated septum Surgical History No past surgical history on file. Social History She reports that she has never smoked. She uses smokeless tobacco. She reports that she does not currently use alcohol. She reports that she does not use drugs. Family History No family history on file. Allergies Penicillins ROS negative except what is otherwise specified in the HPI. HENT: Head: Normocephalic and atraumatic. Eyes: Conjunctiva/sclera: Conjunctivae normal. Pupils: Pupils are equal, round, and reactive to light. Cardiovascular: Rate and Rhythm: Normal rate and regular rhythm. Pulmonary: Effort: Pulmonary effort is normal. No respiratory distress. Breath sounds: Normal breath sounds. Abdominal: General: Bowel sounds are normal. Palpations: Abdomen is soft. Musculoskeletal: Cervical back: Normal range of motion and neck supple. Skin: General: Skin is warm and dry. Neurological: Mental Status: Alert and oriented to person, place, and time. Cranial Nerves: No cranial nerve deficit. Coordination: Coordination normal. Psychiatric: Mood and Affect: Affect normal. Last Recorded Vitals There were no vitals taken for this visit. Relevant Results Assessment/Plan Assessment & Plan Deviated nasal septum Nasal congestion Nasal turbinate hypertrophy Nasal deformity Plan: SEPTOPLASTY, INFERIOR TURBINATE REDUCTION, NASAL VALVE REPAIR, RECONSTRUCTION OF NOSE I spent 15 minutes in the professional and overall care of this patient. Gorge Weldon PA-C [facility] Work Phone: 05-07-2024 History and physical note History Of Present Illness Lul Pelaez is a 38 y.o. female presenting with nasal airway obstruction, here today for nasal surgery. Past Medical History Past Medical History: Diagnosis Date Anxiety djd spine Arthritis Depression Deviated septum Surgical History No past surgical history on file. Social History She reports that she has never smoked. She uses smokeless tobacco. She reports that she does not currently use alcohol. She reports that she does not use drugs. Family History No family history on file. Allergies Penicillins ROS negative except what is otherwise specified in the HPI. HENT: Head: Normocephalic and atraumatic. Eyes: Conjunctiva/sclera: Conjunctivae normal. Pupils: Pupils are equal, round, and reactive to light. Cardiovascular: Rate and Rhythm: Normal rate and regular rhythm. Pulmonary: Effort: Pulmonary effort is normal. No respiratory distress. Breath sounds: Normal breath sounds. Abdominal: General: Bowel sounds are normal. Palpations: Abdomen is soft. Musculoskeletal: Cervical back: Normal range of motion and neck supple. Skin: General: Skin is warm and dry. Neurological: Mental Status: Alert and oriented to person, place, and time. Cranial Nerves: No cranial nerve deficit. Coordination: Coordination normal. Psychiatric: Mood and Affect: Affect normal. Last Recorded Vitals There were no vitals taken for this visit. Relevant Results Assessment/Plan Assessment & Plan Deviated nasal septum Nasal congestion Nasal turbinate hypertrophy Nasal deformity Plan: SEPTOPLASTY, INFERIOR TURBINATE REDUCTION, NASAL VALVE REPAIR, RECONSTRUCTION OF NOSE I spent 15 minutes in the professional and overall care of this patient. Gorge eWldon PA-C documented in this encounter [facility] Work Phone: 03-15-2024 History of Present illness Narrative Images from the original note were not included. Facial Plastic & Reconstructive Surgery Reason for consult: Nasal obstruction Referring provider: Dr. Morales, [facility] Chief Complaint: Obstructed breathing Constant, present year [...] Procedure: Rigid diagnostic nasal endoscopy Surgeon: Jarred Negrete MD Anesthesia: None Timeout: Performed Findings: A [...] Nasopharynx: Clear, no discharge, no masses/lesions Modified [place] Maneuver: Performed with a cotton tipped applicator, [...] reduction with lateralization. documented in this encounter [facility] Work Phone: 09-22-2023 Evaluation note Encounter Date Diagnosis Assessment Notes Sep, Dysuria (ICD-10 - R30.0) Discussed dipstick findings with patient. Advised patient that there is no evidence of acute UTI. Advised that this is likely related to stone. Recommended ER for further evaluation and workup. Patient verbalizes understanding and is agreeable with treatment plan [facility] Other 09-25-2023 Hospital Discharge instructions Patient Education [...] include: ?8 oz (237 mL) of milk, cjirsgu-plmkktzvotde-chddi milk, and calcium- fortifiedfruit juice. Calcium-fortified means [...] ?Spinach (cooked), rhubarb, beets, sweet potatoes, and Chinese chard. ?Peanuts. ?Potato chips, swedish fries, and baked potatoes with skin on. ?Nuts and nut products. ?Chocolate. If you regularly take a diuretic medicine, make sure to eat at least 1 or 2 servings of fruits or vegetables that are high in potassium each day. These include: ?Avocado. ?Banana. ?[place], prune, carrot, or tomato juice. ?Baked potato. [...] magnesium, fish oil, or vitamin B6. Take qhik-jce-xxktoyc and prescription medicines only as told by [...] Casseroles. Pizza. Lasagna. Frozen meals. Potato chips. Chinese fries. The items listed above may not [...] provider. Document Revised: 05/17/2022 Document Reviewed: 05/17/2022 [employer] Patient Education 2022 [employer]. Follow Up Care 02/08/2023 16:17:30 With:CHARLOTTE SCALES PA-C, URL Address: [address] [place] [address] [phone] When: Unknown Comments:2 yr w/ [facility] and [facility] 06-18-2023 Evaluation note* Encounter Date Diagnosis [...] fever. Patient verbalized understanding of treatment plan. [facility] Other 01-16-2023 Hospital Discharge instructions Patient Education [...] include: ?Spinach. ?Rhubarb. ?Beets. ?Potato chips and swedish fries. ?Nuts. If you regularly take a diuretic medicine, make sure to eat at least 1 2 fruits or vegetables high in potassium each day. These include: ?Avocado. ?Banana. ?[place], prune, carrot, or tomato juice. ?Baked potato. [...] Casseroles. Pizza. Lasagna. Frozen meals. Potato chips. Chinese fries. Summary You can reduce your risk [...] 12/31/2011 Document Revised: 12/26/2019 Document Reviewed: 08/16/2017 [employer]ator Patient Education 2020 [employer]. Follow Up Care 08/30/2022 15:20:43 With:CLARITZA JOHNSTON, Anna Lorenzana, URL Address: [facility] [address] [place] [address]- When: Unknown [facility] 12-14-2022 Evaluation note* Encounter Date Diagnosis [...] needed for cough or shortness of breath [facility] Other 08-04-2022 Evaluation note* Encounter Date Diagnosis [...] care provider if no improvement of symptoms. [facility] Other 11-03-2021 Evaluation note* Encounter Date Diagnosis [...] Patient care instructions given in writting by [facility] Care At Home document. [facility] Other Evaluation + Plan note Future Appointments Appointment Date:01/10/2023 03:15:00 PM Scheduled Provider:Anna JERRY MD Location:[facility] Appointment Type:URO Office Visit Diagnostic Tests Pending * Creatinine 10/04/22 [facility] evaluation + Plan note Future Appointments Appointment Date:07/10/2024 02:00:00 PM Scheduled Provider:CHARLOTTE SCALES PA-C Location:[facility] Appointment Type:URO Office Visit [facility] evaluation + Plan note Future Appointments Appointment Date:07/29/2025 09:45:00 AM Scheduled Provider:Anna JERRY MD Location:[facility] Appointment Type:URO Office Visit Diagnostic Tests Pending * Electrolyte Panel 07/30/24 [facility] evaluation noteNo assessment information available [facility] Work Phone: Evaluation note* Diagnosis Migraine without [...] apnea (adult) (pediatric) documented in this encounter [facility] HealthcareEvaluation note* Diagnosis Obstructive sleep apnea (adult) (pediatric) documented in this encounter [facility] HealthcareEvaluation note* Diagnosis Obstructive sleep apnea (adult) (pediatric)- Primary Generalized anxiety disorder (CMS/HCC) Generalized anxiety disorder Migraine without aura and without status migrainosus, not intractable (CMS/HCC) Bilateral leg edema Edema 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 documented in this encounter [facility] HealthcareEvaluation note* Diagnosis Nasal deformity- Primary Acquired [...] deformity of nose documented in this encounter [facility] Work Phone: Evaluation note* Diagnosis Deviated nasal septum- Primary Deviated nasal septum Sore of lip Nasal congestion Other diseases of nasal cavity and sinuses Nasal turbinate hypertrophy Hypertrophy of nasal turbinates Nasal deformity Acquired deformity of nose Anxiety Anxiety state, unspecified Depression Depressive disorder, not elsewhere classified ADHD documented in this encounter [facility] Work Phone: Evaluation note* Diagnosis Deviated nasal septum documented in this encounter [facility] Work Phone: Evaluation note* Diagnosis Migraine [...] Edema 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 Migraine without aura and without status migrainosus, not intractable (CMS/HCC)- Primary Generalized anxiety disorder (CMS/HCC) Generalized anxiety disorder Sleep apnea with hypersomnolence Bilateral leg edema Edema Class 3 severe obesity due to excess calories with serious comorbidity and body mass index (BMI) of 45.0 to 49.9 in adult (CMS/HCC) documented in this encounter [facility] note* [...] Edema 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 Migraine without aura and without status migrainosus, not intractable (CMS/HCC)- Primary Generalized anxiety disorder (CMS/HCC) Generalized anxiety disorder Sleep apnea with hypersomnolence Bilateral leg edema Edema Class 3 severe obesity due to excess calories with serious comorbidity and body mass index (BMI) of 45.0 to 49.9 in adult (CMS/HCC) Obstructive sleep apnea (adult) (pediatric) documented in this encounter [facility] HealthcareEvaluation note* Diagnosis Migraine without aura [...] Edema 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 Migraine without aura and without status migrainosus, not intractable (CMS/HCC)- Primary Generalized anxiety disorder (CMS/HCC) Generalized anxiety disorder Sleep apnea with hypersomnolence Bilateral leg edema Edema Class 3 severe obesity due to excess calories with serious comorbidity and body mass index (BMI) of 45.0 to 49.9 in adult (CMS/HCC) Obstructive sleep apnea (adult) (pediatric) documented in this encounter [facility] HealthcareEvaluation note* Diagnosis Migraine without aura and [...] Edema 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 Migraine without aura and without status migrainosus, not intractable (CMS/HCC)- Primary Generalized anxiety disorder (CMS/HCC) Generalized anxiety disorder Sleep apnea with hypersomnolence Bilateral leg edema Edema Class 3 severe obesity due to excess calories with serious comorbidity and body mass index (BMI) of 45.0 to 49.9 in adult (CMS/HCC) Paresthesia- Primary Disturbance of skin sensation Pain in both wrists documented in this encounter [facility]* [...] Edema 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 Migraine without aura and without status migrainosus, not intractable (CMS/HCC)- Primary Generalized anxiety disorder (CMS/HCC) Generalized anxiety disorder Sleep apnea with hypersomnolence Bilateral leg edema Edema Class 3 severe obesity due to excess calories with serious comorbidity and body mass index (BMI) of 45.0 to 49.9 in adult Migraine without aura and without status migrainosus, not intractable (CMS/HCC) Obstructive sleep apnea (adult) (pediatric) documented in this encounter [facility] HealthcareEvaluation note* Diagnosis Migraine without aura [...] Edema 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 Migraine without aura and without status migrainosus, not intractable (CMS/HCC)- Primary Generalized anxiety disorder (CMS/HCC) Generalized anxiety disorder Sleep apnea with hypersomnolence Bilateral leg edema Edema Class 3 severe obesity due to excess calories with serious comorbidity and body mass index (BMI) of 45.0 to 49.9 in adult Obstructive sleep apnea (adult) (pediatric) documented in this encounter [facility] HealthcareEvaluation note* Diagnosis Migraine without aura and without status migrainosus, not intractable- Primary Generalized anxiety disorder Generalized anxiety disorder Obstructive sleep apnea (adult) (pediatric) Personal history of urinary calculi 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 Bilateral leg edema Edema Migraine without aura and without status migrainosus, not intractable- Primary Generalized anxiety disorder Generalized anxiety disorder Obstructive sleep apnea (adult) (pediatric) Chronic rhinosinusitis Unspecified sinusitis (chronic) Bilateral leg edema Edema Morbid obesity (CMS-HCC) Morbid obesity Obstructive sleep apnea (adult) (pediatric)- Primary Migraine without aura and without status migrainosus, not intractable Generalized anxiety disorder Generalized anxiety disorder Bilateral leg edema Edema Obstructive sleep apnea (adult) (pediatric)- Primary Generalized anxiety disorder Generalized anxiety disorder Migraine without aura and without status migrainosus, not intractable Bilateral leg edema Edema 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 Migraine without aura and without status migrainosus, not intractable- Primary Generalized anxiety disorder Generalized anxiety disorder Sleep apnea with hypersomnolence Bilateral leg edema Edema Class 3 severe obesity due to excess calories with serious comorbidity and body mass index (BMI) of 45.0 to 49.9 in adult (CMS-HCC) Migraine without aura and without status migrainosus, not intractable- Primary Sleep apnea with hypersomnolence Bilateral leg edema Edema Generalized anxiety disorder Generalized anxiety disorder 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 documented in this encounter [facility]* Diagnosis Migraine without aura and without status migrainosus, not intractable- Primary Generalized anxiety disorder Generalized anxiety disorder Obstructive sleep apnea (adult) (pediatric) Personal history of urinary calculi 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 Bilateral leg edema Edema Migraine without aura and without status migrainosus, not intractable- Primary Generalized anxiety disorder Generalized anxiety disorder Obstructive sleep apnea (adult) (pediatric) Chronic rhinosinusitis Unspecified sinusitis (chronic) Bilateral leg edema Edema Morbid obesity (CMS-HCC) Morbid obesity Obstructive sleep apnea (adult) (pediatric)- Primary Migraine without aura and without status migrainosus, not intractable Generalized anxiety disorder Generalized anxiety disorder Bilateral leg edema Edema Obstructive sleep apnea (adult) (pediatric)- Primary Generalized anxiety disorder Generalized anxiety disorder Migraine without aura and without status migrainosus, not intractable Bilateral leg edema Edema 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 Migraine without aura and without status migrainosus, not intractable- Primary Generalized anxiety disorder Generalized anxiety disorder Sleep apnea with hypersomnolence Bilateral leg edema Edema Class 3 severe obesity due to excess calories with serious comorbidity and body mass index (BMI) of 45.0 to 49.9 in adult (CMS-HCC) Migraine without aura and without status migrainosus, not intractable- Primary Sleep apnea with hypersomnolence Bilateral leg edema Edema Generalized anxiety disorder Generalized anxiety disorder 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 Obstructive sleep apnea (adult) (pediatric) documented in this encounter [facility] HealthcareEvaluation note* Diagnosis Migraine without aura and without status migrainosus, not intractable- Primary Generalized anxiety disorder Generalized anxiety disorder Obstructive sleep apnea (adult) (pediatric) Personal history of urinary calculi 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 Bilateral leg edema Edema Migraine without aura and without status migrainosus, not intractable- Primary Generalized anxiety disorder Generalized anxiety disorder Obstructive sleep apnea (adult) (pediatric) Chronic rhinosinusitis Unspecified sinusitis (chronic) Bilateral leg edema Edema Morbid obesity (CMS-HCC) Morbid obesity Obstructive sleep apnea (adult) (pediatric)- Primary Migraine without aura and without status migrainosus, not intractable Generalized anxiety disorder Generalized anxiety disorder Bilateral leg edema Edema Obstructive sleep apnea (adult) (pediatric)- Primary Generalized anxiety disorder Generalized anxiety disorder Migraine without aura and without status migrainosus, not intractable Bilateral leg edema Edema 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 Migraine without aura and without status migrainosus, not intractable- Primary Generalized anxiety disorder Generalized anxiety disorder Sleep apnea with hypersomnolence Bilateral leg edema Edema Class 3 severe obesity due to excess calories with serious comorbidity and body mass index (BMI) of 45.0 to 49.9 in adult (CMS-HCC) Migraine without aura and without status migrainosus, not intractable- Primary Sleep apnea with hypersomnolence Bilateral leg edema Edema Generalized anxiety disorder Generalized anxiety disorder 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 Obstructive sleep apnea (adult) (pediatric) documented in this encounter [facility] HealthcareEvaluation note* Diagnosis Onset Date Resolution Status Admit Date Annual physical exam acute May 3:01pm [facility] Work Phone: History general Narrative - Reported* Type Description Date Medical History kidney stones Surgical History C section Surgical History appendectomy Surgical History cholecystectomy Surgical History hernia repair Surgical History lithotripsy Surgical History wisdom teeth extract Hospitalization History see above [employer] Other History general Narrative - Reported* Type Description Date Medical History kidney stones Medical History anxiety Medical History migraine headache Surgical History C section Surgical History appendectomy Surgical History cholecystectomy Surgical History hernia repair Surgical History lithotripsy Surgical History wisdom teeth extract Hospitalization History see above [employer] Other History general Narrative - Reported* Type Description Date Medical History kidney stones Medical History anxiety Medical History migraine headache Surgical History C section Surgical History appendectomy Surgical History cholecystectomy Surgical History hernia repair Surgical History lithotripsy Surgical History wisdom teeth extract Surgical History cortisone shots in back Hospitalization History see above [employer] Other Hospital course Narrative No data available for this section [facility] Hospital Discharge instructions No data available for this [facility] No data available for this section [facility] reason for referral (narrative)No reason for referral information [facility] Work Phone: Reason for visit Narrative* Other Medical (Routine) - Closed Specialty Diagnoses / Procedures Referred By Contac t Referred To Contact Neurology Diagnoses Paresthesia of skin Pain in right wrist Procedures NE NEEDLE EMG EA EXTREMTY W/PARASPINL AREA COMPLETE NE NERVE CONDUCTION STUDIES 9-10 STUDIES Jb Renae MD [address] [place] [address] fax: Lul Chang DO [address] [place] [address] Phone: tel: fax: Referral ID Status Reason Start Date Expiration Date V isits Requested Visits Authorized [id number] Closed Perform Procedure 12/04/2024 06/02/2025 1 1 [facility] Summary Purpose Family History Relationship Condition Age at Onset Recorded Date/T yuly mother Heart disease Unknown Advance Directives Advance Directive Response Recorded Date/ Time Advance Directives No March 11 12:09pm Chief Complaint and Reason for Visit Chief Complaint Admit Date Established Patient May 30, 2025 3:01pm Reason for Visit Admit Date Annual physical exam May 30 3:01pm Additional Source Comments INFORMATION SOURCE (unrecogn ized section and content) DATE CREATED AUTHOR 03/14/2018 [facility] DATE CREATED AUTHOR AUTHOR'S ORGANIZ ATION 01/19/2023 [facility] DATE CREATED AUTHOR AUTHOR'S ORGANIZ ATION 03/19/2023 [facility] DATE CREATED AUTHOR AUTHOR'S ORGANIZ ATION 04/03/2024 [facility] DATE CREATED AUTHOR AUTHOR'S ORGANIZ ATION 05/15/2024 [facility] DATE CREATED AUTHOR AUTHOR'S ORGANIZ ATION 06/21/2024 [facility] DATE CREATED AUTHOR AUTHOR'S ORGANIZ ATION 06/22/2024 [facility] DATE CREATED AUTHOR AUTHOR'S ORGANIZ ATION [facility]2025 [facility] DATE CREATED AUTHOR AUTHOR'S ORGANIZ ATION 03/30/2025 [facility] EPIC REASON FOR VISIT (unrecogniz ed section and content) Reason Comments Follow-up Chest cold/cough Reason Onset Date Comments Med Refill 08/02/2024 Reason Onset Date Comments Med Refill 06/05/2024 Reason Comments Follow-up 2 m Reason Comments New Patient Visit Deviated Nasal Septum Reason Onset Date Comments Med Refill 08/31/2024 Specialty Diagnoses / Procedures Referred By Contac t Referred To Contact Diagnoses Deviated nasal septum Nasal congestion Nasal turbinate hypertrophy Nasal deformity Deviated nasal septum [J34.2] Nasal Deformity [M95.0] Inferior turbinate Hypertrophy [J34.3] Procedures NE SEPTOPLASTY/SUBMUCOUS RESECJ W/WO CARTILAGE GRF NE CARTILAGE GRAFT NASAL SEPTUM NE REPAIR NASAL VESTIBULAR STENOSIS NE FRACTURE NASAL INFERIOR TURBINATE THERAPEUTIC NE ABLTJ SOF TISS INF TURBS UNI/BI SUPFC INTRAMURAL SEPTOPLASTY, INFERIOR TURBINATE REDUCTION, NASAL VALVE REPAIR, RECONSTRUCTION OF NOSE SEPTOPLASTY, INFERIOR TURBINATE REDUCTION, NASAL VALVE REPAIR, RECONSTRUCTION OF NOSE SEPTOPLASTY, INFERIOR TURBINATE REDUCTION, NASAL VALVE REPAIR, RECONSTRUCTION OF NOSE SEPTOPLASTY, INFERIOR TURBINATE REDUCTION, NASAL VALVE REPAIR, RECONSTRUCTION OF NOSE SEPTOPLASTY, INFERIOR TURBINATE REDUCTION, NASAL VALVE REPAIR, [place] [address] [place] [address] [facility] [address] [address] Referral ID Status Reason Start Date Expiration Date Visits Re quested Visits Authorized [id number] 1 1 Reason Comments Post-op Reason Onset Date Comments Med Refill 05/27/2024 Reason Comments Follow-up Reason Onset Date Comments Med Refill 10/01/2024 Reason Onset Date Comments Med Refill 11/05/2024 Reason Onset Date Comments Med Refill 12/05/2024 Reason Comments Med Refill Reason Onset Date Comments Med Refill 01/31/2025 Reason Comments Follow-up 6m Foot Swelling Left foot Reason Onset Date Comments Med Refill 03/26/2025 Reason Onset Date Comments Med Refill 04/26/2025 Patient Care team informatio n (unrecognized section and content) Team Status: Inactive Member Role Status Dates Leana Soler , MARKETING ANALYTICS SPECIALIST Attending Provider Active Pediatric Neurologist Relationship Specialty Start Date End Date Kirby Alberto MD [address] [place] [phone] PCP - General Family Medicine 04/13/23 Milton Thayer MD [address] [place] [address] Family Medicine 04/13/23 Pediatric Neurologist Relationship Specialty Start Date End Date Kirby Alberto MD [address] [place] [phone] PCP - General Family Medicine 04/13/23 Milton Thayer MD [address] [place] [address] Family Medicine 04/13/23 Pediatric Neurologist Relationship Specialty Start Date End Date Kirby Alberto MD [address] [place] [phone] PCP - General Family Medicine 04/13/23 Milton Thayer MD [address] [place] [facility] [address] Family Medicine 04/13/23 Pediatric Neurologist Relationship Specialty Start Date End Date Kirby Alberto MD [address] [place] [address] PCP - General Family Medicine 04/13/23 Milton Thayer MD [address] [place] [facility] [address] Family Medicine 04/13/23 Pediatric Neurologist Relationship Specialty Start Date End Date Kirby Alberto MD [address] [place] [address] PCP - General Family Medicine 04/13/23 Milton Thayer MD [address] [place] [facility] [address] Family Medicine 04/13/23 Pediatric Neurologist Relationship Specialty Start Date End Date Kirby Alberto MD [address] [place] [address] PCP - General Family Medicine 04/13/23 Milton Thayer MD [address] [facility] [place] [address] Family Medicine 04/13/23 Pediatric Neurologist Relationship Specialty Start Date End Date Kirby Alberto MD [address] [place] [address] PCP - General Family Medicine 04/13/23 Pediatric Neurologist Relationship Specialty Start Date End Date Kirby Alberto MD [address] [place] [address] PCP - General Family Medicine 04/13/23 Milton Thayer MD [address] [place] [address] Family Medicine 04/13/23 Pediatric Neurologist Relationship Specialty Start Date End Date Kirby Alberto MD [address] [place] [address] PCP - General Family Medicine 04/13/23 Milton Thayer MD [address] [place] [address] Family Medicine 04/13/23 Pediatric Neurologist Relationship Specialty Start Date End Date Kirby Alberto MD [address] [place] [address] PCP - General Family Medicine 04/13/23 Milton Thayer MD [address] [place] [address] Family Medicine 04/13/23 Pediatric Neurologist Relationship Specialty Start Date End Date Kirby Alberto MD [address] [place] [address] PCP - General Family Medicine 04/13/23 Milton Thayer MD [address] [place] [address] Family Medicine 04/13/23 Pediatric Neurologist Relationship Specialty Start Date End Date Kirby Alberto MD [address] [place] [address] PCP - General Family Medicine 04/13/23 Milton Thayer MD [address] [facility] [place] [address] Family Medicine 04/13/23 Pediatric Neurologist Relationship Specialty Start Date End Date Kirby Alberto MD [address] [place] [address] PCP - General Family Medicine 04/13/23 Milton Thayer MD [address] [facility] [place] [address] Family Medicine 04/13/23 Pediatric Neurologist Relationship Specialty Start Date End Date Kirby Alberto MD [address] [place] [phone] PCP - General Family Medicine 04/13/23 Milton Thayer MD [address] [facility] [place] [address] Family Medicine 04/13/23 Pediatric Neurologist Relationship Specialty Start Date End Date Kirby Alberto MD [address] [place] [address] PCP - General Family Medicine 04/13/23 Milton Thayer MD [address] [facility] [place] [address] Family Medicine 04/13/23 Pediatric Neurologist Relationship Specialty Start Date End Date Kirby Alberto MD [address] [place] [address] PCP - General Family Medicine 04/13/23 Milton Thayer MD [address] [place] [address] Family Medicine 04/13/23 Team Status: Active Member Role Status Dates PHYSICIAN NO FAMILY Primary Care Provider Active Team Status: Inactive Member Role Status Dates PHYSICIAN NO FAMILY Primary Care Provider Active Start: May 30, 2025 End: May 30, 2025 Kirby Alberto MD Attending Provider Active Star t: May 30, 2025 End: May 30, 2025 Goals (unrecognized section and content) Goals may be documented in a n alternate section Scheduled Active and Recently Administ ered Medications (unrecognized section and content) Medication Order 05/05/2024 05/06/2024 05/07/2024 lidocaine in NaCl,iso-osmo(PF) injection 1 mg 1 mg (0.1 mL), subcutaneous, Once, On Tue05/07/24 at 1000, For 1 dose, Recovery (only), To be used for IV insertion ONLY 1000 (Due) Continuous Medication Order 05/05/2024 05/06/2024 05/07/2024 lactated Ringer's infusion 100 mL/hr, intravenous, Continuous, Starting on Tue05/07/24 at 1000, Recovery (only) 0933 (Continued from OR - Provider: Yanely Rdz, PAULA)[id number] (Stopped - Provider: Yanely Rdz RN) PRN Medication Order 05/05/2024 05/06/2024 05/07/2024 albuterol 2.5 mg /3 mL (0.083 %) nebulizer solution 2.5 mg 2.5 mg, nebulization, Once as needed, wheezing, Starting on Tue05/07/24 at 0938, For 1 dose, Recovery (only) balanced salts (BSS) intraocular solution (CANCELED) As needed, Starting on Tue05/07/24 at 0831, Intraprocedure 0831 (Given - Provid er: Jarred Negrete MD) EPINEPHrine HCl (PF) (Adrenalin) injection (CANCELED) As needed, Starting on Tue05/07/24 at 0832, Intraprocedure 0832 (Given - Provid er: Jarred Negrete MD - Comment: FOR TOPICAL PLEGET MIXTURE (2MG EPINEPHRINE, 10 ML TXA, 20 ML SALINE)) HYDROmorphone (Dilaudid) injection 0.5 mg 0.5 mg, intravenous, Every 5 min PRN, pain severe (7-10), first line, Starting on Tue05/07/24 at 0938, For 5 doses, Recovery (only), Max total of 2 mg regardless of dose. HYDROmorphone PF (Dilaudid) injection 0.2 mg 0.2 mg, intravenous, Every 5 min PRN, pain moderate (4-6), first line, Starting on Tue05/07/24 at 0938, For 5 doses, Recovery (only), Max total of 1 mg regardless of dose. lidocaine-epinephrine (Xylocaine W/EPI) 1 %-1:100,000 injection (CANCELED) As needed, Starting on Tue05/07/24 at 0835, Intraprocedure 0835 (Given - Provid er: Jarred Negrete MD - Comment: LOCAL MIXTURE: 9 ML OF LIDOCAINE 1% WITH EPINEPHRINE, 1 ML OF TXA. USED A TOTAL OF 17 ML OF LOCAL MIXTURE.) metoclopramide (Reglan) injection 10 mg 10 mg, intravenous, Once as needed, nausea/vomiting, second line, Starting on Tue05/07/24 at 0938, For 1 dose, Recovery (only) mupirocin (Bactroban) 2 % ointment (CANCELED) As needed, Starting on Tue05/07/24 at 0916, Intraprocedure 0916 (Given - Provid er: Jarred Negrete MD) ondansetron (Zofran) injection 4 mg 4 mg, intravenous, Once as needed, nausea/vomiting, first line, Starting on Tue05/07/24 at 0938, For 1 dose, Recovery (only), When administering via IV Push, administer over 3-5 minutes. oxyCODONE (Roxicodone) immediate release tablet 5 mg 5 mg, oral, Every 4 hours PRN, pain mild (1-3), first line, Starting on Tue05/07/24 at 0938, Recovery (only), When able to take oral medications., If ordered PRN for pain, nurse is permitted to administer this medication for higher pain scores based on patient preference? Yes oxygen (O2) therapy inhalation, at 2 mL/hr, Continuous PRN - O2/gases, other, Post-operative care O2 support titration, Starting on Tue05/07/24 at 0938, Recovery (only), Titrate cannula versus simple face mask to O2 saturation, Device: Nasal Cannula, Rate in liters per minute: 2 LPM, Keep O2 Sat Above: 92%, Indications: invasive surgical procedure, Post-operative Oxygen support oxymetazoline (Afrin) 0.05 % nasal spray (CANCELED) As needed, Starting on Tue05/07/24 at 0833, Intraprocedure 0833 (Given - Provid er: Jarred Negrete MD - Comment: FOR PREP, TOPICAL PLEGETS IN AFRIN) sodium chloride 0.9 % irrigation solution (CANCELED) As needed, Starting on Tue05/07/24 at 0836, Intraprocedure 0836 (Given - Provid er: Jarred Negrete MD) tranexamic acid (Cyklokapron) injection (CANCELED) As needed, Starting on Tue05/07/24 at 0833, Intraprocedure 0833 (Given - Provid er: Jarrde Negrete MD - Comment: FOR TOPICAL PLEGET MIXTURE (2MG EPINEPHRINE, 10 ML TXA, 20 ML SALINE)) FOR RECORDS PERTAINING TO PATIENTS WHO ARE [...] BE BASED ON THE PRIMARY CLINICAL RECORDS. [employer] provides no warranty or guarantee of the accuracy or completeness of information in this document.
[2025-06-03 01:06] LABS: FSH 9.1 mIU/mL (.)
== END 2025-05-31 16:08 | disposition home or self-care (01) ==
PROVIDERS: PCP Family Medicine; Visit Provider Family Medicine
DX: N93.8 Other specified abnormal uterine and vaginal bleeding (principal)
CPT/HCPCS: 36415; 82306; 82627; 82670; 83001; 83002; 84144; 84403

== ENCOUNTER 2025-07-08 14:56 | Outpatient (OUT) | payer OTHER, SELFPAY ==
--- OUTSIDE RECORDS SUMMARY | 2025-07-08 15:03 | XMS_ITS | CCD ---
Author Organization [facility] CliniSyor Care Team Providers Care Director Broadcast Name Role Phone WINSOME, MINGO S Unavailable [...] Ayala Primary Care Unavailable NADERER, DR KIRBY Ayaal Consulting Unavailable NADERER, DR KIRBY Ayala Primary Care Unavailable JERRY ., DR CATSILLO Attending Unavailable JERRY ., DR CASTILLO Admitting [...] KIRBY Ayala Admitting Unavailable Leana Soler Unavailable KNE Soler Attending Provider [phone] Leana Soler Attending Unavailable Leana Soler Admitting [...] Unavailable Kirby Alberto MD Primary Care Provider [phone] Flaca JOHNSTON, Milton Thomas Unavailable Unavailable Primary Care Provider UnavailAnna Zavala Attending Unavailable Anna JERRY Attending Unavailable Timmis Yovani H Attending Unavailable Timmis, Yovani H Referring Unavailable Timmis, Yovani H Admitting Unavailable LUL CHANG Attending Unavailable KIRBY ALBERTO Referring Unavailable KIRBY ALBERTO Attending Unavailable KIRBY ALBERTO Attending Unavailable KIRBY ALBERTO Attending Unavailable KIRBY ALBERTO Attending Unavailable NO FAMILY, PHYSICIAN Primary Care Provider Kirby Alegria MD Attending Provider [phone] Allergies Allergy Classification Reported Allergen(s) Allergy Type Date of Onset Reaction(s) Facility Penicillins (antibiotic) (1 source) Penicillin G; Translations: [penicillin G benzathine] Drug Allergy Eruption of skin (disorder) [facility] (9 sources) Penicillin G Benzathine; Translations: [Penicillin G] Drug allergy rash, Eruption of skin (disorder) [facility] (1 source) Penicillin Drug Allergy [facility] (20 sources) Penicillins; Translations: [PENICILLINS] Propensity [...] four times daily as needed for headache rfkpikenrg-preknkiwcjdoz-kkbcijwa 50-325 -40 MG tablet Indications: Chronic migraine without aura without status migrainosus, not intractable Take 1 tablet by mouth 4 (four) times a day as needed for headaches 60 tablet 2 02/17/2024 Active Start: 11-27-2023 take 1 tablet by mouth every four hours as needed Asvhslfjqw-Urpcawazqyiyq-Bupw 50-325-40 mg tablet Active 1 TAB PO [...] day, # 15 cap(s), Refills(s) 11, Pharmacy: [facility], 153, cm, 07/30/24 16:03:00 EST, Height/Length [...] (3 sources) Start: 05-14-2024 sodium chlorid e ([place]) 0.65 % nasal spray Indications: Deviated nasal septum Administer 1 spray into each nostril if needed for congestion. 30 mL 12 05/14/2024 Active Start: 05-07-2024 End: 05-14-2024 sodium chloride ([place]) 0.65 % nasal spray Indications: Deviated nasal [...] 1.5 mg/ml oral solution (1 source) Uncompetitive Z-amwuvw-Q-aspartate Receptor Antagonist, Sigma-1 Agonist Start: 11-27-2023 End: 05-30-2025 take 1 mL by mouth every eight hours Pyrilamine-Dextromethorphan ([place] Dm) 7.5-7.5 mg/5 mL liquid Discontinued 10 ML PO Every 8 hours 150 5 November 27, 2023 1:00am May 30, 2025 3:40pm polymyxin b 71154 unt/ml / trimethoprim 1 mg/ml ophthalmic solution (1 source) Dihydrofolate Reductase Inhibitor Antibacterial, Polymyxin-class Antibacterial Start: 02-01-2023 take 1 drop(s) into the eye(s) every three hours Polytrim 96240-3.1 UNIT/ML 1 drop into affected eye Ophthalmic every 3 hours while awake for January, Not-Taking Polytrim 22438-9.1 UNIT/ML (1 source) Start: 02-01-2023 take 1 drop(s) into the eye(s) every three hours as needed Polytrim 57889-9.1 UNIT/ML 1 drop into affected eye Ophthalmic [...] of 45.0 to 49.9 in adult ([facility])] Onset: 10-04-2023 09-25-2024 Chronic Other [...] Value Interpretation Reference Range Facility Patient [facility] Patient [facility] Patient Letter [facility] January 03, 2025 LUL [place]URROLA [address] [place] [address] : 1985 To who it may concern, Lul Gurrola is a current urology patient of [facility]. Please excuse her to use the bathroom on her breaks and as needed due to the medication which has been prescribed to treat her urological condition. This medication can cause frequency, and urgency. Thank you for your cooperation in this matter. Please feel free to contact me with any questions or concerns. Sincerely, Anna Jerry M.D., F.A.C.S. [facility] [id number] [place] [address] , option #3 Normal [facility] EMG 2 Extremitieson 12-13-19 25 EMG/NCS [...] [Moles/Vol] 139 mmol/L 136 - 145 mmol/L [facility] Health[facility] e Ambulatory Visit Summaryon 09-29-2023 [...] Anna JERRY MD Where: [facility] [address] [facility] [place] [address]- You Need to Schedule the Following Appointments Follow Up with Anna JERRY MD, URL When: Where: [facility] [address], [facility] [address] [phone] Medications What How Much When Instructions Unchanged [...] ? 8 oz (237 mL) of milk, uxlrzge-qfhjonekayny-b airy milk, and calcium-fortifiedfruit juice. Calcium-fortified means [...] Low-fat (more content not included)... Normal [facility] Urology Office/Clinic Noteon 07-30-2024 Urology Office/Clinic [...] URL [facility] [address] [place] [phone] Additional Instructions: schedule CT scan Patient Education Dietary Guidelines to Help Prevent Kidney Stones Ailin Colbert (more content not included)... Normal [facility] Comment on above: Result Comment: Elec tronically Signed By: Anna JERRY MD\.br\Date and Time Signed: 07/30/24 17:01 EST\.br\Electronically Co-Signed By: Ailin Dubose\.br\Date and Time Co-Signed: 07/30/24 17:00 EST HCG QUALITATIVE*on 4 [facility] , QUAL Negative NEGATIVE [facility] HCG ( test) Ql (U)o n 05-07-2024 Interpretation and review of laboratory results Normal [facility] Work Phone: Preg Test, Ur Negative Negative [facility] Work Phone: [facility] Work Phone: CT Maxillofacial w/o Contras [...] Diamond DO Transcribed by: ADILENE Technologist: GALLO [facility] Consent for Treatmenton 01-19 Consent for Treatment [id number] 0TIFF [facility] Physician Orderon 01-26-2024 Physician Order [id number] 0TIFF [facility] Urinalysis - AUTOMATEDon Appearance (U) clear [employer] Other Bilirubin Ql (U) Negative [employer] Other Color (U) yellow [employer] Other Glucose Ql (U) Negative [employer] Other Hemoglobin Ql (U) small [employer] Other Ketones Ql (U) Negative [employer] Other Leukocyte esterase Test strip Ql (U) Negative [employer] Other Nitrite Ql (U) Negative [employer] Other pH (U) 7.0 [pH] [employer] Other Protein Ql (U) Negative [employer] Other Specific gravity (U) [Rel density] 1.025 [employer] Other Urobilinogen (U) [Mass/Vol] 0.2 mg/dL [employer] [facility] [employer] Other Urinalysis - AUTOMATED [facility] [employer]into Other XR foot LT min 3V*on 023 XR foot LT min 3V* [facility] [address] [place] [address] XRay Report Signed Patient: Lul Pelaez MR#: [id number] 6 : 1985 Acct:[id number] Age/Sex: 37 / F ADM Date: 03/06/23 Loc: XDUCLY Room: Type: [facility] Attending Dr: Leana Soler APRN Copies to: [...] Selena Thomson M.D.03/06/2023 2:30 PM Dictation Location: [place] [address] Transcribed By: [facility] 03/06/23 1430 Dictated By: Selena Thomson MD 03/06/23 1429 Signed By: 03/06/23 1430 Normal [facility] XR foot LT min 3V* [facility] [employer] Other XR foot LT min 3V* [facility] [employer] Other XR foot LT min 3V* [address] [facility] [employer] Other XR foot LT min 3V* [place] [id number] [facility] [employer] Other XR foot LT min 3V* XRay Report [employer] Other XR foot LT min 3V* Signed [employer] Other XR foot LT min 3V* Patient: Lul Pelaez MR#: [id number] [employer] Other XR foot LT min 3V* 6 [employer] Other XR foot LT min 3V* : 1985 Acct:[id number] [employer] Other XR foot LT min 3V* Age/Sex: 37 / F ADM Date: 03/06/23 [employer] Other XR foot LT min 3V* Loc: XDUCLY Room: Type: [facility] [employer] Other XR foot LT min 3V* Attending Dr: Leana Soler APRN [employer] Other XR foot LT min 3V* Copies to: Leana Soler TELEVISION CAMERA OPERATOR [employer] Other XR foot LT min 3V* Ordering Provider: Leana Soler APRN [employer] Other XR foot LT min 3V* Date of Service: 03/06/23 [employer] Other XR foot LT min 3V* XR/XR foot LT min 3V*: M79.672 [employer] Other XR foot LT min 3V* LEFT FOOT - 3 views [employer] Other XR foot LT min 3V* CLINICAL DATA: Dorsa l foot pain for the past 5 days. No injury [employer] Other XR foot LT min 3V* COMPARISON: None [employer] Other XR foot LT min 3V* AP, lateral and oblique views were obtained. There is no evidence of fracture or dislocation. [employer] Other XR foot LT min 3V* There are posterior and plantar calcaneal spurs. There is soft tissue swelling over the dorsum of [employer] Other XR foot LT min 3V* foot. The soft tissu es of the ankle are also prominent. [employer] Other XR foot LT min 3V* XR/XR foot LT min 3V* [employer] Other XR foot LT min 3V* IMPRESSION: [employer] Other XR foot LT min 3V* NO ACUTE BONY FINDINGS. [employer] Other XR foot LT min 3V* Impression dictated by: Selena Thomson M.D.03/06/2023 2:30 PM [employer] Other XR foot LT min 3V* Dictation Location: [place] [address] [employer] Other XR foot LT min 3V* Transcribed By: NESSA 03/06/23 1430 [employer] Other XR foot LT min 3V* Dictated By: Selena Thomson MD 03/06/23 1429 [employer] Other XR foot LT min 3V* Signed By: [employer] Other XR foot LT min 3V* 03/06/23 1430 [facility] [employer] Other CITRATE URINE 24HRon 023 Citric Acid, U, 24hr 410 mg/24 hr Normal 320-1240 [facility] Comment on above: Result Comment: This test was developed and its performance characteristics determined by [employer]. It has not been cleared or approved by the Food and Drug Administration. Performed By: #### O X24HR #### [facility] [address] [place] [address] Dr. Neil Krishnamurthy Citric Acid, Urine 200 mg/L Normal Undefined [facility] Comment on above: Performed By: #### O X24HR #### [facility] [address] [place] [address] [address] Neil Krishnamurthy OXALATE 24HR URINEon 023 Oxalates, Urine 7 mg/L Normal Undefined [facility] Comment on above: Performed By: #### O X24HR #### [facility] [address] [place] [address] [address] Neil Krishnamurthy Oxalates, Urine 24hr 14 mg/24 hr Normal 4-31 [facility] Comment on above: Performed By: #### O X24HR #### [facility] [address] [place] [address] Dr. Neil Krishnamurthy MAGNESIUM 24HR URINEon 12-07 Magnesium 24hr Urine 116.9 mg/24 hr Normal 12.0-293.0 [facility] Comment on above: Performed By: #### C O2, CL, BUN, CREA, URIC, K, CA, NA #### [facility] [address] [place] [address] [address] Neil Krishnamurthy Magnesium UR 5.7 mg/dL Normal Not Estab. [facility] Comment on above: Performed By: #### C O2, CL, BUN, CREA, URIC, K, CA, NA #### [facility] [address] [place] [address] [address] Neil Krishnamurthy PHOSPHORUS 24HR URINEon 11-18 Phosphorus, Urine 56.6 mg/dL Normal Not Estab. [facility] Comment on above: Performed By: #### O X24HR #### [facility] [address] [place] [address] [address] Neil Krishnamurthy Phosphorus, Urine 24hr 1160 mg/24 hr Critically high 261-1078 [facility] Comment on above: Performed By: #### O X24HR #### [facility] [address] [place] [address] Dr. Neil Krishnamurthy PTH INTACTon 12-07-2022 PTH, Intact 41 pg/mL Normal 15-65 [facility] Comment on above: Performed By: #### O X24HR #### [facility] [address] [place] [address] Dr. Neil Krishnamurthy URIC ACID 24 HR URINEon 11-18 Uric Acid, Urine 23.4 mg/dL Normal Not Estab. [facility] Comment on above: Performed By: #### O X24HR #### [facility] [address] [place] [address] Dr. Neil Krishnamurthy Uric Acid, Urine 24hr 479.7 mg/24 hr Normal 173.7-902.1 [facility] Comment on above: Performed By: #### O X24HR #### [facility] [address] [place] [address] Dr. Neil Krishnamurthy BUNon 12-06-2022 Urea nitrogen [Mass/Vol] 12.0 mg/dL Normal 7.0-18.0 [facility] Comment on above: Performed By: #### C O2, CL, BUN, CREA, URIC, K, CA, NA #### [facility] [address] [place] [address] Dr. Neil Krishnamurthy CALCIUMon 12-06-2022 Calcium [Mass/Vol] 8.6 mg/dL Normal 8.5-10.1 [facility] Comment on above: Performed By: #### O X24HR #### [facility] [address] [place] [address] Dr. Neil Krishnamurthy CALCIUM 24 HR URINEon 2022 CALC, 24 HR UR 479.7 mg/24 hr Critically high 100.0-300.0 [facility] Comment on above: Performed By: #### V AGINT #### [facility] [address] [place] [address] Dr. Neil Krishnamurthy UR CALCIUM 23.4 mg/dL Critically high 5.1-21.0 [facility] Comment on above: Performed By: #### V AGINT #### [facility] [address] [place] [address] Dr. Neil Krishnamurthy UR TOT VOL 2050 ml/24 HR Normal [facility] Comment on above: Performed By: #### V AGINT #### [facility] [address] [place] [address] Dr. Neil Krishnamurthy Performed By: #### C O2, CL, BUN, CREA, URIC, K, CA, NA #### [facility] [address] [place] [address] Dr. Neil Krishnamurthy CHLORIDEon 12-06-2022 Chloride [Moles/Vol] 106 mmol/L Normal 98-107 [facility] Comment on above: Performed By: #### C O2, CL, BUN, CREA, URIC, K, CA, NA #### [facility] [address] [place] [address] Dr. Neil Krishnamurthy CO2on 12-06-2022 CO2 [Moles/Vol] 25.7 mmol/L Normal 21.0-32.[address] [facility] Comment on above: Performed By: #### C O2, CL, BUN, CREA, URIC, K, CA, NA #### [facility] [address] [place] [address] Dr. Neil Krishnamurthy CREA 24 HR URINEon CREA, 24 HR UR 1371.04 mg/24 hr Normal 800.00-1, 800. 00 [facility] Comment on above: Performed By: #### C O2, CL, BUN, CREA, URIC, K, CA, NA #### [facility] [address] [place] [address] Dr. Neil Krishnamurthy URINE CREAT 66.88 mg/dL Normal 20.00-300.00 [facility] Comment on above: Performed By: #### C O2, CL, BUN, CREA, URIC, K, CA, NA #### [facility] [address] [place] [address] Dr. Neil Krishnamurthy CREATININEon 12-06-2022 Creatinine [Mass/Vol] 0.78 mg/dL Normal 0.55-1.02 [facility] Comment on above: Performed By: #### C O2, CL, BUN, CREA, URIC, K, CA, NA #### [facility] [address] [place] [address] Dr. Neil Krishnamurthy EGFR-AF GIBRALTARIAN >60 Normal >=60 [facility] Comment on above: Performed By: #### C O2, CL, BUN, CREA, URIC, K, CA, NA #### [facility] [address] [place] [address] Dr. Neil Krishnamurthy EGFR-NON AF GIBRALTARIAN >60 Normal >=60 [facility] Comment on above: Performed By: #### C O2, CL, BUN, CREA, URIC, K, CA, NA #### [facility] [address] [place] [address] Dr. Neil Krishnamurthy NAon 12-06-2022 Sodium [Moles/Vol] 139 mmol/L Normal 136-145 [facility] Comment on above: Performed By: #### C O2, CL, BUN, CREA, URIC, K, CA, NA #### [facility] [address] [place] [address] Dr. Neil Krishnamurthy POTASSIUMon 12-06-2022 Potassium [Moles/Vol] 4.1 mmol/L Normal 3.5-5.1 [facility] Comment on above: Performed By: #### C O2, CL, BUN, CREA, URIC, K, CA, NA #### [facility] [address] [place] [address] Dr. Neil Krishnamurthy SODIUM 24 HR URINEon 023 NA, 24 HR UR 211 mmol/24 hr Normal 40-220 [facility] Comment on above: Performed By: #### C O2, CL, BUN, CREA, URIC, K, CA, NA #### [facility] [address] [place] [address] Dr. Neil Krishnamurthy Sodium (U) [Moles/Vol] 103 mmol/L Critically high 30-90 [facility] Comment on above: Performed By: #### C O2, CL, BUN, CREA, URIC, K, CA, NA #### [facility] [address] [place] [address] Dr. Neil Krishnamurthy URIC ACID SERUMon 12-06-2022 Urate [Mass/Vol] 5.0 mg/dL Normal 2.6-6.0 [facility] Comment on above: Performed By: #### C O2, CL, BUN, CREA, URIC, K, CA, NA #### [facility] [address] [place] [address] [address] Neil Krishnamurthy ECHOCARDIO M/2D COMPLETEon 0 11-17-2022 ECHOCARDIO M/2D COMPLETE Patient: LUL PELAEZ Exam Date: 11/17/2022 : 1985 Gender:F Ordering : DR KIRBY ALBERTO . Admission #: [id number] Family : Order #: [id number] CLICK HERE TO VIEW EXAM ECHOCARDIOGRAM REPORT [...] Onofre M.D. on 11/18/2022 at 09:50 Normal [facility] US PELVIS AND TRANSVAGon US PELVIS [...] by: RIC GURROLA Date: 2022-11-01 07:20 Normal [facility] XR RIBS RT PA Karl 3 [...] RIC GURROLA Date: 2022-11-01 07:12 Normal [facility] XR TSPINE MIN 4 VIEWSon 10-20 [...] RIC GURROLA Date: 2022-11-01 07:09 Normal [facility] CREATININEon 10-12-2022 Creatinine [Mass/Vol] 0.91 mg/dL Normal 0.55-1.02 [facility] Comment on above: Performed By: #### O X24HR #### [facility] [address] [place] [address] Dr. Neil Krishnamurthy EGFR-AF GIBRALTARIAN >60 Normal >=60 [facility] Comment on above: Performed By: #### O X24HR #### [facility] [address] [place] [address] Dr. Neil Krishnamurthy EGFR-NON AF GIBRALTARIAN >60 Normal >=60 [facility] Comment on above: Performed By: #### O X24HR #### [facility] [address] [place] [address] Dr. Neil Krishnamurthy XR IVPon 10-12-2022 XR IVP EXAMINATION: XR IVP HISTORY: Kidney stone COMPARISON: No relevant comparison available. TECHNIQUE: After obtaining patient consent a potato chip frier image was obtained followed by injection of [...] by: RIC GURROLA Date: 2022-10-12 09:48 Normal [facility] XR KUB 1 VIEWon 10-05-2022 XR [...] RIC GURROLA Date: 2022-10-05 07:35 Normal [facility] COVID/FLU RT-PCRon 2 SARS-CoV-2 (COVID-19) RNA BRANDIE+probe Ql (Unsp spec) Negative [employer] Other COVID/FLU RT-PCR Negative [employer] Other XR KUB 1 VIEWon 08-30-2022 XR [...] RIC GURROLA Date: 2022-08-30 07:28 Normal [facility] CBC AUTO DIFFon 07-13-2022 BASO # 0.0 103/ul Normal 0.0-0.1 [facility] Comment on above: Performed By: #### V AGINT #### [facility] [address] [place] [address] Dr. Neil Krishnamurthy Basophils/100 WBC (Bld) 0.5 % Normal 0.2-2.0 [facility] Comment on above: Performed By: #### V AGINT #### [facility] [address] [place] [address] Dr. Neil Krishnamurthy EO # 0.2 103/ul Normal 0.0-0.7 [facility] Comment on above: Performed By: #### V AGINT #### [facility] [address] [place] [address] Dr. Neil Krishnamurthy Eosinophils/100 WBC (Bld) 1.9 % Normal 0.9-7.0 [facility] Comment on above: Performed By: #### V AGINT #### [facility] [address] [place] [address] Dr. Neil Krishnamurthy Erythrocyte distribution width (RBC) [Ratio] 11.7 % Normal 11.0-15.0 [facility] Comment on above: Performed By: #### V AGINT #### [facility] [address] [place] [address] Dr. Neil Krishnamurthy Hematocrit (Bld) [Volume fraction] 41.1 % Normal 36.0-48.0 [facility] Comment on above: Performed By: #### V AGINT #### [facility] [address] [place] [address] Dr. Neil Krishnamurthy Hemoglobin (Bld) [Mass/Vol] 13.7 g/dL Normal 12.0-16.0 [facility] Comment on above: Performed By: #### V AGINT #### [facility] [address] [place] [address] Dr. Neil Krishnamurthy IG # 0.03 10e3/ul Normal 0.00-0.03 [facility] Comment on above: Performed By: #### V AGINT #### [facility] [address] [place] [address] Dr. Neil Krishnamurthy IG % 0.4 % Normal 0.0-0.5 [facility] Comment on above: Performed By: #### V AGINT #### [facility] [address] [place] [address] Dr. Neil Krishnamurthy LYMPH # 2.8 103/ul Normal 1.2-3.8 [facility] Comment on above: Performed By: #### V AGINT #### [facility] [address] [place] [address] Dr. Neil Krishnamurthy Lymphocytes/100 WBC (Bld) 32.9 % Normal 20.5-60.0 [facility] Comment on above: Performed By: #### V AGINT #### [facility] [address] [place] [address] Dr. Neil Krishnamurthy MANUAL DIFF REQ NO Normal [facility] Comment on above: Performed By: #### V AGINT #### [facility] [address] [place] [address] Dr. Neil Krishnamurthy MCH (RBC) [Entitic mass] 30.4 pg Normal 26.7-34.0 [facility] Comment on above: Performed By: #### V AGINT #### [facility] [address] [place] [address] Dr. Neil Krishnamurthy MCHC (RBC) [Mass/Vol] 33.3 g/dL Normal 29.9-35.2 [facility] Comment on above: Performed By: #### V AGINT #### [facility] [address] [place] [address] Dr. Neil Krishnamurthy MCV (RBC) [Entitic vol] 91.3 fL Normal 81.0-99.0 [facility] Comment on above: Performed By: #### V AGINT #### [facility] [address] [place] [address] Dr. Neil Krishnamurthy MONO # 0.7 103/ul Normal 0.3-0.8 [facility] Comment on above: Performed By: #### V AGINT #### [facility] [address] [place] [address] Dr. Neil Krishnamurthy Monocytes/100 WBC (Bld) 8.0 % Normal 1.7-12.0 [facility] Comment on above: Performed By: #### V AGINT #### [facility] [address] [place] [address] Dr. Neil Krishnamurthy NEUT # 4.8 103/ul Normal 1.4-6.5 [facility] Comment on above: Performed By: #### V AGINT #### [facility] [address] [place] [address] Dr. Neil Krishnamurthy Neutrophils/100 WBC (Bld) 56.3 % Normal 43.0-75.0 [facility] Comment on above: Performed By: #### V AGINT #### [facility] [address] [place] [address] Dr. Neil Krishnamurthy Platelet mean volume (Bld) [Entitic vol] 11.0 fL Normal 9.5-13.5 [facility] Comment on above: Performed By: #### V AGINT #### [facility] [address] [place] [address] Dr. Neil Krishnamurthy PLT 242 103/ul Normal 150-450 [facility] Comment on above: Performed By: #### V AGINT #### [facility] [address] [place] [address] Dr. Neil Krishnamurthy RBC 4.50 106/ul Normal 4.20-5.40 [facility] Comment on above: Performed By: #### V AGINT #### [facility] [address] [place] [address] Dr. Neil Krishnamurthy WBC 8.5 103/ul Normal 4.0-11.0 [facility] Comment on above: Performed By: #### V AGINT #### [facility] [address] [place] [address] Dr. Neil Krishnamurthy GLYCOHEMOGLOBIN A1Con 2021 ADA RECOMMENDATION SEE BELOW Normal [facility] Comment on above: Result Comment: ADA RECOMMENDED LIMIT 4.0 - 6.0 ADA THERAPEUTIC TARGET < 7.0 ACTION SUGGESTED > 7.0 Performed By: #### V AGINT #### [facility] [address] [address] [address] Neil Krishnamurthy Glucose [Mass/Vol] 97 mg/dL Normal [facility] Comment on above: Performed By: #### V AGINT #### [facility] [address] [address] [address] Neil Krishnamurthy HbA1c (Bld) [Mass fraction] 5.0 % Normal 4.5-6.2 [facility] Comment on above: Performed By: #### V AGINT #### [facility] [address] [place] [address] Dr. Neil Krishnamurthy LIPID PROFILEon 07-13-2022 CHOL-HDL RATIO NORM SEE BELOW Normal [facility] Comment on above: Result Comment: 3.3 - 4.4 LOW RISK 4.4 - 7.1 AVERAGE RISK 7.1 - 11.0 MODERATE RISK >11.0 HIGH RISK Performed By: #### O X24HR #### [facility] [address] [address] [address] Neil Krishnamurthy Cholesterol [Mass/Vol] 157 mg/dL Normal <=200 [facility] Comment on above: Performed By: #### O X24HR #### [facility] [address] [place] [address] Dr. Neil Krishnamurthy Cholesterol in HDL [Mass/Vol] 50 mg/dL Normal 40-60 [facility] Comment on above: Performed By: #### O X24HR #### [facility] [address] [address] [address] Neil Krishnamurthy Cholesterol in LDL [Mass/Vol] 79.4 mg/dL Normal [facility] Comment on above: Performed By: #### O X24HR #### [facility] [address] [address] [address] Neil Krishnamurthy Cholesterol.total/C holesterol in HDL [Mass ratio] 3.1 {ratio} Normal [facility] Comment on above: Performed By: #### O X24HR #### [facility] [address] [address] [address] Neil Krishnamurthy HDL NORMAL > or = 60 mg/dl - LO W CARDIOVASCULAR RISK <40 mg/dl - HIGH CARDIOVASCULAR RISK Normal [facility] Comment on above: Performed By: #### O X24HR #### [facility] [address] [place] [address] Dr. Neil Krishnamurthy LDL CALC NORMAL SEE BELOW Normal [facility] Comment on above: Result Comment: <100 mg/dl OPTIMAL 100 - 129 mg/dl NEAR OR ABOVE OPTIMAL 130 - 159 mg/dl BORDERLINE HIGH 160 - 189 mg/dl HIGH >190 mg/dl VERY HIGH Performed By: #### O X24HR #### [facility] [address] [place] [address] Dr. Neil Krishnamurthy Triglyceride [Mass/Vol] 138 mg/dL Normal <=150 [facility] Comment on above: Performed By: #### O X24HR #### [facility] [address] [place] [address] Dr. Neil Krishnamurthy VLDL CALC 27.6 mg/dL Normal [facility] Comment on above: Performed By: #### O X24HR #### [facility] [address] [place] [address] Dr. Neil Krishnamurthy LIVER PROFILEon 07-13-2022 Albumin [Mass/Vol] 3.5 g/dL Normal 3.4-5.0 [facility] Comment on above: Performed By: #### O X24HR #### [facility] [address] [place] [address] Dr. Neil Krishnamurthy Albumin/Globulin [Mass ratio] 1.0 {ratio} Normal [facility] Comment on above: Performed By: #### O X24HR #### [facility] [address] [place] [address] Dr. Neil Krishnamurthy ALP [Catalytic activity/Vol] 83 U/L Normal 46-116 [facility] Comment on above: Performed By: #### O X24HR #### [facility] [address] [place] [address] Dr. Neil Krishnamurthy ALT [Catalytic activity/Vol] 19 U/L Normal 14-59 [facility] Comment on above: Performed By: #### O X24HR #### [facility] [address] [place] [address] Dr. Neil Krishnamurthy AST [Catalytic activity/Vol] 15 U/L Normal 15-37 [facility] Comment on above: Performed By: #### O X24HR #### [facility] [address] [place] [address] Dr. Neil Krishnamurthy BILI, CONJUGATED 0.1 mg/dL Normal 0.0-0.[address] [facility] Comment on above: Performed By: #### O X24HR #### [facility] [address] [place] [address] Dr. Neil Krishnamurthy Bilirubin [Mass/Vol] 0.6 mg/dL Normal 0.2-1.0 [facility] Comment on above: Performed By: #### O X24HR #### [facility] [address] [place] [address] Dr. Neil Krishnamurthy Globulin (S) [Mass/Vol] 3.5 g/dL Normal [facility] Comment on above: Performed By: #### O X24HR #### [facility] [address] [place] [address] Dr. Neil Krishnamurthy Protein [Mass/Vol] 7.0 g/dL Normal 6.4-8.2 [facility] Comment on above: Performed By: #### O X24HR #### [facility] [address] [place] [address] Dr. Neil Krishnamurthy PROF CHEM 8 (BAS METB)on Anion gap [Moles/Vol] 10.8 mmol/L Normal [facility] Comment on above: Performed By: #### O X24HR #### [facility] [address] [place] [address] Dr. Neil Krishnamurthy Calcium [Mass/Vol] 8.2 mg/dL Critically low 8.5-10.1 [facility] Comment on above: Performed By: #### O X24HR #### [facility] [address] [address] [address] Neil Krishnamurthy Chloride [Moles/Vol] 105 mmol/L Normal 98-107 [facility] Comment on above: Performed By: #### O X24HR #### [facility] [address] [address] [address] Neil Krishnamurthy CO2 [Moles/Vol] 24.5 mmol/L Normal 21.0-32.0 [facility] Comment on above: Performed By: #### O X24HR #### [facility] [address] [address] [address] Neil Krishnamurthy Creatinine [Mass/Vol] 0.74 mg/dL Normal 0.55-1.02 [facility] Comment on above: Performed By: #### O X24HR #### [facility] [address] [address] [address] Neil Krishnamurthy EGFR-AF GIBRALTARIAN >60 Normal >=60 [facility] Comment on above: Performed By: #### O X24HR #### [facility] [address] [address] [address] Neil Krishnamurthy EGFR-NON AF GIBRALTARIAN >60 Normal >=60 [facility] Comment on above: Performed By: #### O X24HR #### [facility] [address] [address] [address] Neil Krishnamurthy Glucose [Mass/Vol] 106 mg/dL Normal 74-[address] [facility] Comment on above: Performed By: #### O X24HR #### [facility] [address] [address] [address] Neil Krishnamurthy Potassium [Moles/Vol] 3.5 mmol/L Normal 3.5-5.1 [facility] Comment on above: Performed By: #### O X24HR #### [facility] [address] [address] [address] Neil Krishnamurthy Sodium [Moles/Vol] 137 mmol/L Normal 136-[address] [facility] Comment on above: Performed By: #### O X24HR #### [facility] [address] [address] [address] Neil Krishnamurthy Urea nitrogen [Mass/Vol] 11.0 mg/dL Normal 7.0-18.0 [facility] Comment on above: Performed By: #### O X24HR #### [facility] [address] [place] [address] Dr. Neil Krishnamurthy Urea nitrogen/Creatinine [Mass ratio] 14.8 mg/mg Normal [facility] Comment on above: Performed By: #### O X24HR #### [facility] [address] [place] [address] Dr. Neil Krishnamurthy TSHon 07-13-2022 TSH 1.166 uIU/mL Normal 0.358-3.740 [facility] Comment on above: Performed By: #### O X24HR #### [facility] [address] [place] [address] Dr. Neil Krishnamurthy VITAMIN D 25 OHon 07-13-2022 VIT D 25-OH 23.8 ng/mL Normal [facility] Comment on above: Performed By: #### V ITAD #### [facility] [address] [place] [address] Dr. Neil Krishnamurthy VIT D RANGES SEE BELOW Normal [facility] Comment on above: Result Comment: <20 ng/mL Vit D deficient 20 - <30 ng/mL Vit D insufficient 30 - 100 ng/mL Vit D sufficient >100 ng/mL Potential Toxicity Performed By: #### V ITAD #### [facility] [address] [place] [address] Dr. Neil Krishnamurthy MG MAMM SCREEN 3D MARKEL CADon 06-23-2022 MG MAMM SCREEN 3D MARKEL CAD Patient: LUL PELAEZ Exam Date: 06/23/2022 : 1985 Gender:F Ordering : DR KATHY BARRAGAN . Admission #: [id number] Family : Order #: [id number] CLICK HERE TO VIEW EXAM RADIOLOGY REPORT [...] cervical cancer at age 31. LOCATION: [facility] BREAST COMPOSITION: Heterogeneously dense,which may obscure [...] Gurrola MD on 06/23/2022 at 11:17 Normal [facility] PAP ACOG PANEL 2: 30 to 65on 06-16-2022 . . Normal [facility] Comment on above: Result Comment: Perf ormed at: WB Performed By: #### C O2, CL, BUN, CREA, URIC, K, CA, NA #### [facility] [address] [address] [address] Neil Krishnamurthy Age Gdln ACOG Testing 30-65 Normal [facility] Comment on above: Performed By: #### C O2, CL, BUN, CREA, URIC, K, CA, NA #### [facility] [address] [address] [address] Neil Krishnamurthy DIAGNOSIS: Comment Normal [facility] Comment on above: Result Comment: NEGA TIVE FOR INTRAEPITHELIAL LESION OR MALIGNANCY. Performed at: WB Performed By: #### C O2, CL, BUN, CREA, URIC, K, CA, NA #### [facility] [address] [address] [address] Neil Krishnamurthy HPV Aptima Negative Normal Negative [facility] Comment on above: Result Comment: This nucleic acid amplification test detects fourteen high-risk HPV types (16,18,31,33,35,39,45,51,52,56,58,59,66,68) without differentiation. Performed at: =G Performed By: #### C O2, CL, BUN, CREA, URIC, K, CA, NA #### [facility] [address] [address] [address] Neil Krishnamurthy Methodology: Comment Normal [facility] Comment on above: Result Comment: This liquid based ThinPrep(R) pap test was screened with the use of an image guided system. Performed at: WB Performed By: #### C O2, CL, BUN, CREA, URIC, K, CA, NA #### [facility] [address] [address] [address] Neil Krishnamurthy Note: Comment Normal [facility] Comment on above: Result Comment: The [...] BUN, CREA, URIC, K, CA, NA #### [facility] [address] [place] [address] Dr. Neil Krishnamurthy Performed by: Comment Normal [facility] Comment on above: Result Comment: Fang Song, Transfill Technician (ASCP) Performed at: WB Performed By: #### C O2, CL, BUN, CREA, URIC, K, CA, NA #### [facility] [address] [place] [address] Dr. Neil Krishnamurthy Specimen adequacy: Comment Normal [facility] Comment on above: Result Comment: Sati sfactory for evaluation. Endocervical and/or squamous metaplastic cells (endocervical component) are present. Performed at: WB Performed By: #### C O2, CL, BUN, CREA, URIC, K, CA, NA #### [facility] [address] [address] [address] Neil Krishnamurthy VAGINITIS/VAGINOSIS DNA PROB Jovi 06-03-2022 Rachel species Negative Normal Negative [facility] Comment on above: Performed By: #### V AGINT #### [facility] [address] [address] [address] Neil Krishnamurthy Gardnerella vaginalis Positive Abnormal Negative [facility] Comment on above: Performed By: #### V AGINT #### [facility] [address], [place] [address] Dr. Neil Krishnamurthy Trichomonas vaginalis Negative Normal Negative [facility] Comment on above: Performed By: #### V AGINT #### [facility] [address], [place] [address] Dr. Neil Krishnamurthy COVID Quick Testingon 2020 Result Positive [facility] Other XR ABDOMEN LIMITED (KUB)on XR ABDOMEN LIMITED (KUB) EXAMINATION:SUPINE VIEW(S) OF THE [id number]/08/2017 1:38 pmCOMPARISON:October 19, 2010HISTORY:ORDERING SYSTEM PROVIDED HISTORY: [...] Menendezigned by:Raheel Morales MD07/08/17Final result Normal [facility] Vital Signs Date Time Vital Sign Value Performing Clinician Facility 05-30-2025 15:31-0400 Body height 152.4 cm PHYSICIAN NO [facility] 05-30-2025 15:31-0400 Body mass index (BMI) [Ratio] 42.5 kg/m2 PHYSICIAN NO [facility] 05-30-2025 15:31-0400 Body temperature 98.5 [degF] PHYSICIAN NO [facility] 05-30-2025 15:31-0400 Body weight 98.88 kg PHYSICIAN NO [facility] 05-30-2025 15:31-0400 Diastolic blood pressure 90 mm[Hg] PHYSICIAN NO [facility] 05-30-2025 15:31-0400 Heart rate 69 /min PHYSICIAN NO [facility] 05-30-2025 15:31-0400 Respiratory rate 16 /min PHYSICIAN NO [facility] 05-30-2025 15:31-0400 SaO2% (BldA) [Mass fraction] 99 % PHYSICIAN [facility] 05-30-2025 15:31-0400 Systolic blood pressure 110 mm[Hg] PHYSICIAN [facility] 03-26-2025 14:42-0400 Body height 152.4 cm Kirby Alberto MD Work Phone: [facility] 03-26-2025 14:42-0400 Body mass index (BMI) [Ratio] 42.77 kg/m2 Kirby Alberto MD Work Phone: [facility] 03-26-2025 14:42-0400 Body temperature 97.11 [degF] Kirby Alberto MD Work Phone: [facility] 03-26-2025 14:42-0400 Body weight 99.34 kg Kirby Alberto MD Work Phone: [facility] 03-26-2025 14:42-0400 Diastolic blood pressure 68 mm[Hg] Kirby Alberto MD Work Phone: [facility] 03-26-2025 14:42-0400 Heart rate 100 /min Kirby Alberto MD Work Phone: [facility] 03-26-2025 14:42-0400 Respiratory rate 20 /min Kirby Alberto MD Work Phone: [facility] 03-26-2025 14:42-0400 SaO2% (BldA) [Mass fraction] 99 % Kirby Alberto MD Work Phone: [facility] 03-26-2025 14:42-0400 Systolic blood pressure 132 mm[Hg] Kirby Alberto MD Work Phone: [facility] 09-25-2024 15:48-0500 Body mass index (BMI) [Ratio] 45.99 kg/m2 Kirby Alberto MD Work Phone: [facility] 09-25-2024 15:48-0500 Body temperature 98.29 [degF] Kirby Alberto MD Work Phone: [facility] 09-25-2024 15:48-0500 Body weight 106.81 kg Kirby Alberto MD Work Phone: [facility] 09-25-2024 15:48-0500 Diastolic blood pressure 70 mm[Hg] Kirby Alberto MD Work Phone: [facility] 09-25-2024 15:48-0500 Heart rate 97 /min Kirby Alberto MD Work Phone: [facility] 09-25-2024 15:48-0500 SaO2% (BldA) [Mass fraction] 97 % Kirby Alberto MD Work Phone: [facility] 09-25-2024 15:48-0500 Systolic blood pressure 122 mm[Hg] Kirby Alberto MD Work Phone: [facility] 07-30-2024 15:48-0500 Blood Pressure Location Anna JERRY [facility] 07-30-2024 15:48-0500 Diastolic blood pressure 95 mm[Hg] Anna JERRY [facility] 07-30-2024 15:48-0500 Heart rate 79 /min Anna JERRY [facility] 07-30-2024 15:48-0500 Respiratory rate 18 /min Anna JERRY [facility] 07-30-2024 15:48-0500 Systolic blood pressure 128 mm[Hg] Anna JERRY [facility] 07-05-2024 11:45-0400 Body height 152.4 cm Kirby Alberto MD Work Phone: [facility] 07-05-2024 11:45-0400 Body mass index (BMI) [Ratio] 44.72 kg/m2 Kirby Alberto MD Work Phone: [facility] 07-05-2024 11:45-0400 Body temperature 97.81 [degF] Kirby Alberto MD Work Phone: [facility] 07-05-2024 11:45-0400 Body weight 103.87 kg Kirby Alberto MD Work Phone: [facility] 07-05-2024 11:45-0400 Diastolic blood pressure 78 mm[Hg] Kirby Alberto MD Work Phone: [facility] 07-05-2024 11:45-0400 Heart rate 97 /min Kirby Alberto MD Work Phone: [facility] 07-05-2024 11:45-0400 Respiratory rate 20 /min Kirby Alberto MD Work Phone: [facility] 07-05-2024 11:45-0400 SaO2% (BldA) [Mass fraction] 98 % Kirby Alberto MD Work Phone: [facility] 07-05-2024 11:45-0400 Systolic blood pressure 136 mm[Hg] Kirby Alberto MD Work Phone: [facility] 06-05-2024 15:15-0400 Body height 152.4 cm Kirby Alberto MD Work Phone: [facility] 06-05-2024 15:15-0400 Body mass index (BMI) [Ratio] 45.5 kg/m2 Kirby Alberto MD Work Phone: [facility] 06-05-2024 15:15-0400 Body temperature 97.81 [degF] Kirby Alberto MD Work Phone: [facility] 06-05-2024 15:15-0400 Body weight 105.69 kg Kirby Alberto MD Work Phone: [facility] 06-05-2024 15:15-0400 Diastolic blood pressure 78 mm[Hg] Kirby Alberto MD Work Phone: [facility] 06-05-2024 15:15-0400 Heart rate 102 /min Kirby Alberto MD Work Phone: [facility] 06-05-2024 15:15-0400 Respiratory rate 20 /min Kirby Alberto MD Work Phone: [facility] 06-05-2024 15:15-0400 SaO2% (BldA) [Mass fraction] 98 % Kirby Alberto MD Work Phone: [facility] 06-05-2024 15:15-0400 Systolic blood pressure 130 mm[Hg] Kirby Alberto MD Work Phone: [facility] 05-14-2024 10:30-0400 Body height 152.4 cm Gorge Weldon PA-C Work Phone: [facility] 05-14-2024 10:30-0400 Body mass index (BMI) [Ratio] 42.97 kg/m2 Gorge Weldon PA-C Work Phone: [facility] 05-14-2024 10:30-0400 Body temperature 98.01 [degF] Gorge YEE-Mehdi Work Phone: [facility] 05-14-2024 10:30-0400 Body weight 99.79 kg Gorge YEE-Mehdi Work Phone: [facility] 05-07-2024 10:33-0400 Diastolic blood pressure 87 mm[Hg] Jarred Negrete MD Work Phone: [facility] 05-07-2024 10:33-0400 Heart rate 65 /min Jarred Negrete MD Work Phone: [facility] 05-07-2024 10:33-0400 Respiratory rate 16 /min Jarred Negrete MD Work Phone: [facility] 05-07-2024 10:33-0400 SaO2% (BldA) [Mass fraction] 98 % Jarred Negrete MD Work Phone: [facility] 05-07-2024 10:33-0400 Systolic blood pressure 135 mm[Hg] Jarred Negrete MD Work Phone: [facility] 05-07-2024 09:33-0400 Body temperature 96.8 [degF] Jarred Negrete MD Work Phone: [facility] 05-07-2024 06:50-0400 Body height 152.4 cm Jarred Negrete MD Work Phone: [facility] 05-07-2024 06:50-0400 Body mass index (BMI) [Ratio] 42.45 kg/m2 Jarred Negrete MD Work Phone: [facility] 05-07-2024 06:50-0400 Body weight 98.6 kg Jarred Negrete MD Work Phone: [facility] 03-15-2024 12:31-0400 Body height 152.4 cm Jarred Negrete MD Work Phone: [facility] 03-15-2024 12:31-0400 Body mass index (BMI) [Ratio] 42.46 kg/m2 Jarred Negrete MD Work Phone: [facility] 03-15-2024 12:31-0400 Body weight 98.61 kg Jarred Negrete MD Work Phone: [facility] 09-22-2023 12:00-0500 Body height 152.4 cm Elisabeth Ma Other [employer] [facility] Other 09-22-2023 12:00-0500 Body mass index (BMI) [Ratio] 41.87 kg/m2 Elisabeth Ma Other [employer] [facility] Other 09-22-2023 12:00-0500 Body temperature 97.7 [degF] Elisabeth Ma Other [facility] Other 09-22-2023 12:00-0500 Body weight 97.25 kg Elisabeth Ma Other [facility] Other 09-22-2023 12:00-0500 Diastolic blood pressure 86 mm[Hg] Elisabeth Ma Other [facility] Other 09-22-2023 12:00-0500 Respiratory rate 18 /min Elisabeth Ma Other [facility] Other 09-22-2023 12:00-0500 SaO2% (BldA) [Mass fraction] 99 % Elisabeth Ma Other [facility] Other 09-22-2023 12:00-0500 Systolic blood pressure 124 mm[Hg] Elisabeth Ma Other [facility] Other 03-06-2023 13:50-0400 Body height 152.4 cm Leana Soler Other [facility] Other 03-06-2023 13:50-0400 Body mass index (BMI) [Ratio] 42.3 kg/m2 Leana Soler Other [facility] Other 03-06-2023 13:50-0400 Body temperature 98.2 [degF] Leana Soler Other [facility] Other 03-06-2023 13:50-0400 Body weight 98.25 kg Leana Soler Other [facility] Other 03-06-2023 13:50-0400 Diastolic blood pressure 76 mm[Hg] Leana Soler Other [facility] Other 03-06-2023 13:50-0400 Respiratory rate 18 /min Leana Karlene Other [facility] Other 03-06-2023 13:50-0400 SaO2% (BldA) [Mass fraction] 100 % Leana Khanley Other [facility] Other 03-06-2023 13:50-0400 Systolic blood pressure 111 mm[Hg] Leana Karlene Other [facility] Other 09-01-2022 17:15-0500 Body height 152.4 cm Jennyfer Maravillamond Other [facility] Other 09-01-2022 17:15-0500 Body mass index (BMI) [Ratio] 41.98 kg/m2 Jennyfer Maravillamond Other [facility] Other 09-01-2022 17:15-0500 Body temperature 98.4 [degF] Jennyfer Maravillamond Other [facility] Other 09-01-2022 17:15-0500 Body weight 97.52 kg Jennyfer Maravillamond Other [facility] Other 09-01-2022 17:15-0500 Respiratory rate 18 /min Jennyfer Maravillamond Other [facility] Other 09-01-2022 17:15-0500 SaO2% (BldA) [Mass fraction] 99 % Jennyfer Sara Other [facility] Other 04-22-2022 14:30-0400 Body height 152.4 cm Jessenia Ortiz Other [facility] Other 04-22-2022 14:30-0400 Body mass index (BMI) [Ratio] 40.42 kg/m2 Jessenia Ortiz Other [facility] Other 04-22-2022 14:30-0400 Body weight 93.9 kg Jessenia Ortiz Other [facility] Other 04-22-2022 14:30-0400 Diastolic blood pressure 89 mm[Hg] Jessenia Ortiz Other [facility] Other 04-22-2022 14:30-0400 Respiratory rate 18 /min Jessenia Ortiz Other [facility] Other 04-22-2022 14:30-0400 SaO2% (BldA) [Mass fraction] 100 % Jessenia Ortiz Other [facility] Other 04-22-2022 14:30-0400 Systolic blood pressure 116 mm[Hg] Jessenia Ortiz Other [facility] Other 07-22-2021 11:00-0400 Body height 152.4 cm Jennyfer Sara Other [facility] Other 07-22-2021 11:00-0400 Body mass index (BMI) [Ratio] 38.08 kg/m2 Jennyfer Ruiz Other [facility] Other 07-22-2021 11:00-0400 Body temperature 96.2 [degF] Jennyfer Ruiz Other [facility] Other 07-22-2021 11:00-0400 Body weight 88.45 kg Jennyfer Ruiz Other [facility] Other 07-22-2021 11:00-0400 Respiratory rate 18 /min Jennyfer Ruiz Other [facility] Other 07-22-2021 11:00-0400 SaO2% (BldA) [Mass fraction] 99 % Jennyfer Ruiz Other [facility] Other Encounters Encounter Date Encounter Type Care Provider Facility Start: 07-29-2025 ambulatory Anna Melo ty:[facility] Start: 05-30-2025 End: 05-30-2025 ambulatory PHYSICIAN [facility] Work Phone: Start: 05-30-2025 End: 05-30-2025 Patient encounter procedure Kirby Alberto MD -[facility] Work Phone: Start: 04-26-2025 End: 04-29-2025 Refill Kirby Alberto MD Work Phone: [facility] [...] Start: 12-12-2024 End: 12-12-2024 Patient encounter procedure Lul Chang DO Work Phone: [facility] Comment on above: Paresthesia (Primary Dx); Pain in both wrists Start: 12-12-2024 End: 12-12-2024 ambulatory LULSAMM CHANG Not Available Start: 12-12-2024 End: 12-12-2024 Bamboo flowsheet Lul Bernardo DO Work Phone: [facility] Start: 12-12-2024 End: 12-12-2024 Bamboo flowsheet Lul Bernardo DO Work Phone: [facility] Start: 12-05-2024 End: 12-06-2024 Refill iKrby Alberto MD Work Phone: [facility] [...] Start: 07-30-2024 End: 07-30-2024 ambulatory Anna JERRY Facility:[facility] Start: 07-30-2024 End: 07-30-2024 Patient encounter procedure Anna JERRY [facility] Start: 07-05-2024 End: 07-05-2024 Bamboo flowsheet [...] 06-18-2024 End: 06-18-2024 ambulatory Joanne Cameron MD Facility[facility] Start: 06-05-2024 End: 06-05-2024 Office outpatient visit [...] 06-04-2024 End: 06-04-2024 ambulatory Joanne Cameron MD Facility:[facility] Start: 05-27-2024 End: 05-28-2024 Refill Kirby Alberto MD Work Phone: [facility] Comment on above: Obstructive sleep ap beatriz (adult) (pediatric) Start: 05-14-2024 End: 05-14-2024 ambulatory [facility] Start: 05-14-2024 End: 05-14-2024 Postop follow up visit related to original px Gorge Weldon PA-C Work Phone: [facility] Comment on above: Deviated nasal septu m Start: 05-07-2024 End: 05-07-2024 ambulatory JARRED [facility] Start: 05-07-2024 End: 05-07-2024 Subsequent hospital visit by physician Jarred Negrete MD Work Phone: [facility] [place] Comment on above: Deviated nasal septu m (Primary Dx); Sore of lip Start: 04-16-2024 End: 04-16-2024 ambulatory Joanne Cameron MD Facility: [facility] Start: 03-26-2024 End: 03-26-2024 ambulatory KIRBY ALBERTO Not Available Start: 03-15-2024 End: 03-15-2024 Office consultation new/estab patient 40 min Jarred Negrete MD Work Phone: [facility] Comment on above: Nasal deformity (Evette milton Dx); Deviated nasal septum; Nasal congestion; Nasal obstruction; Hypertrophy of inferior nasal turbinate; Deviated septum; Facial pressure; Difficulty breathing Start: 03-15-2024 End: 03-15-2024 ambulatory JARRED Harding [facility] Start: 02-21-2024 End: 02-21-2024 ambulatory YOVANI Chen TIMMIS Not Available Start: 02-17-2024 End: 02-17-2024 ambulatory Yovani Chen Timmis [facility] Start: 02-17-2024 End: 02-17-2024 Patient encounter procedure Yovani Mottamikevyn [facility] Start: 01-16-2024 End: 01-16-2024 ambulatory YOVANI Chen TIMMIS Not Available Start: 12-20-2023 End: 12-20-2023 ambulatory KIRBY ALBERTO Not Available Start: 10-04-2023 End: 10-04-2023 ambulatory KIRBY ALBERTO Not Available Start: 09-22-2023 End: 09-22-2023 ambulatory Elisabeth Ma Other [place] [employer] Other Start: 09-22-2023 Office outpatient vi sit 15 minutes Elisabeth Ma [facility] Start: 09-05-2023 End: 09-05-2023 ambulatory Joanne Cameron MD Facility:[facility] Start: 08-15-2023 End: 08-15-2023 ambulatory Joanne Cameron MD Facility:[facility] Start: 07-05-2023 End: 07-05-2023 Patient encounter procedure CHARLOTTE SCALES [facility] Start: 03-06-2023 End: 03-06-2023 Patient encounter procedure KEN Soler Work Phone: [facility] Work Phone: Start: 03-06-2023 End: 03-06-2023 ambulatory Leana Soler [facility] [facility] Start: 03-06-2023 Office outpatient vi sit [...] encounter procedure Anna JERRY [facility] Start: 10-02-2022 End: 10-03-[address] ANNA JERRY . Facility:[facility] Start: 09-01-2022 End: 09-01-2022 ambulatory Jennyfer Ruiz Other [employer] Other Start: 09-01-2022 Office outpatient vi sit 15 minutes Jennyferthierry Ruiz [facility] Start: 08-27-2022 End: 08-28-[address] RIC GURROLA Facility:[facility] Start: 07-18-2022 Encounter for genera l adult medical examination without abnormal findings DR KIRBY ALBERTO [facility] Start: 07-13-2022 End: [address] [...] 04-22-2022 End: 04-22-2022 ambulatory Jessenia Ortiz Other [employer] Other Start: 04-22-2022 Office outpatient vi sit 15 minutes Jessenia Ortiz [facility] Start: 07-22-2021 End: 07-22-2021 ambulatory Jennyfer Ruiz Other [employer] Other Start: 07-22-2021 Office outpatient vi sit 15 minutes Jennyfer Sara [facility] Start: 07-08-2017 End: 07-09-2017 Ambulatory [facility] Procedures Date Procedure Procedure Detail Performing Clinician Start: 12-12-2024 End: 12-12-2024 Needle emg ea extremty w/paraspinl area complete Lul Bernardo DO Work Phone: Start: 08-31-2024 TBH ELECTROLYTES Generi c External Data Provider Start: 06-18-2024 HCG QUALITATIVE* Generi c External Data Provider Start: 06-18-2024 Procedure on back Patri jasvir [employer] Start: 06-04-2024 Procedure on back Patri ck [employer] Start: 05-07-2024 PULSE OXIMETRY, CONTINUOUS Boris Frias MD Work Phone: Start: 05-07-2024 Urine test visual color cmprsn luis eduardos Jarred Negrete MD Work Phone: Start: 05-07-2024 Nasal septoplasty Patri [employer] Start: 05-07-2024 Nose - repair or liset stic operation Anna JERRY Start: 03-06-2023 X-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 Leanazakiya Soler Work Phone: Start: 07-08-2017 X-ray exam of abdomen S YAJAIRA SCHUMACHER Appendectomy Annaissa JERRY Cholecystectomy Anna KAISER Colonoscopy Anna JERRY Hernia of abdominal cavity (disorder) Anna JERRY Ligation of fallopian tube P atrick JERRY Lithotripsy Annaissa JERRY Plan of Treatment Date Care Activity Detail Author Start: 2036 Zoster Vaccines (1 o f 2) Zoster Vaccines (1 of 2) [facility] Start: 05-30-2025 End: 05-30-2025 Patient encounter procedure 05/30/2025 3:00 PM EDT Office Visit [facility] [address] [place] [address] Kirby Alberto MD [address] [place] [address] [facility] Start: 05-20-2025 Influenza vaccination [...] [facility] [address] [place] [address] Kirby Alberto MD [address] [place] [address] Arrived [facility] Comment on above: Arrived Start: 06-05-2024 End: 06-05-2024 Patient encounter procedure 06/05/2024 3:00 PM EDT Office Visit [facility] [address] [place] [address] Kirby Alberto MD [address] [place] [address] [facility] Start: 05-20-2024 Influenza vaccination [facility] Start: 05-14-2024 End: 05-14-2024 Patient encounter procedure 05/14/2024 10:15 AM EDT [facility] [address] [place] [address] Gorge Weldon PA-C [address] [facility] [place] [address] [facility] Start: 05-07-2024 Subsequent hospital visit by physician 05/07/2024 Hospital Encounter [facility] [place] [address] [place] [id number] [place] [address] [place] [address] [facility] [place] Start: 05-07-2024 End: 05-07-2024 Septoplasty/submucous resecj w/wo cartilage grf Repair Septum Nasal Cavity with Reduction Turbinate Deviated nasal septum Nasal congestion Nasal turbinate hypertrophy Nasal deformity 05/07/2024 7:51 AM EDT [facility] Start: 05-20-2023 COVID-19 Vaccine () COVID-19 Vaccine () [facility] Start: 05-11-2020 DTaP/Tdap/Td Vaccine s (3 - Td or Tdap) DTaP/Tdap/Td Vaccines (3 - Td or Tdap) [facility] Start: 2016 Screening for malign ant neoplasm of cervix [facility] Start: 2007 Screening for malign ant neoplasm of cervix [facility] Start: 2004 Diabetes mellitus screening Diabetes Screening [facility] Start: 2004 Hepatitis C screening Hepatitis C [facility] Start: 1986 HIV screening HIV Screening [facility] Start: 1986 Lipid panel Lipid Panel [facility] Start: 1986 Yearly Adult Physical Yearly Adult P hycal [facility] Comprehensive metabo lic 2000 panel - Serum or Plasma [facility] Septoplasty/submucou s resecj w/wo cartilage grf Repair Septum Nasal Cavity with Reduction Turbinate Deviated nasal septum Nasal congestion Nasal turbinate hypertrophy Nasal deformity [facility] Immunizations Immunization Date Immunization Notes Care Provider Fa cility 05-11-2010 tetanus toxoid, redu jose juan diphtheria toxoid, and acellular pertussis vaccine, adsorbed Annaissa JERRY [facility] 01-10-2007 varicella virus vaccine Patr jorje JERRY [facility] 12-07-2006 varicella virus vaccine Patr jorje JERRY [facility] 04-25-2006 hepatitis B vaccine, pediatric or pediatric/adolescent dosage Anna JERRY [facility] 12-20-2005 hepatitis B vaccine, pediatric or pediatric/adolescent dosage Anna JERRY [facility] 11-15-2005 hepatitis B vaccine, pediatric or pediatric/adolescent dosage Anna JERRY [facility] 03-10-1999 diphtheria, tetanus toxoids and acellular pertussis vaccine, unspecified formulation Kirby Alberto MD Work Phone: [facility] 03-10-1999 DTaP, unspecified formulation Anna JERRY [facility] 03-10-1999 measles, mumps and rubella virus vaccine Anna JERRY [facility] Payers Date Payer Category Payer Worker's Compensation [employer] [id number] 2023 Self-pay 2022 Medicaid [id number] 2020 Private Health Insurance [id number] 2020 Unknown 2017 Unknown [id number] 2.16.840.1.843631.19 1986 Unknown [id number] 2.16.840.1.057924.3.579.2 .593 1986 Unknown [id number] 2.16.840.1.062890.3.579.2 .593 1986 Unknown [id number] 2.16.840.1.794022.3.579.2 .593 1986 Unknown [id number] 2.16.840.1.620635.3.579.2 .593 1986 Unknown [id number] 2.16.840.1.737556.3.579.2 .593 1986 Unknown [id number] 2.16.840.1.914550.3.579.2 .593 1986 Unknown [id number] 2.16.840.1.262867.3.579.2 .593 1986 Unknown [id number] 2.16.840.1.338404.3.579.2 .593 1986 Unknown [id number] 2.16.840.1.460375.3.579.2 .593 1986 Unknown [id number] 2.16.840.1.976405.3.579.2 .593 1986 Unknown [id number] 2.16.840.1.417414.3.579.2 .593 1986 Unknown [id number] 2.16.840.1.808164.3.579.2 .1259 1986 Unknown [id number] 2.16.840.1.386318.3.579.2 .1259 1986 Unknown [id number] 2.16.840.1.951599.3.579.2 .1259 1986 Unknown [id number] 2.16.840.1.491447.3.579.2 .1259 1986 Unknown [id number] 2.16.840.1.003954.3.579.2 .1259 1986 Unknown [id number] 2.16.840.1.762937.3.579.2 .1244 1986 Unknown [id number] 2.16.840.1.724467.3.579.2 .1244 1986 Unknown [id number] 2.16.840.1.463297.3.579.2 .1245 1986 Unknown [id number] 2.16.840.1.017792.3.579.2 .196 1986 Unknown [id number] 2.16.840.1.864357.3.579.2 .196 1986 Unknown [id number] 2.16.840.1.837247.3.579.2 .196 1986 Unknown [id number] 2.16.840.1.996051.3.579.2 .196 1986 Unknown [id number] 2.16.840.1.084379.3.579.2 .196 1986 Unknown [id number] 2.16.840.1.127863.3.579.2 .727 1986 Unknown [id number] 2.16.840.1.293850.3.579.2 .727 1986 Unknown [id number] 2.16.840.1.891928.3.579.2 .727 1986 Unknown [id number] 2.16.840.1.416832.3.579.2 .1259 1986 Unknown [id number] 2.16.840.1.486942.3.579.2 .1259 1986 Unknown [id number] 2.16.840.1.629872.3.579.2 .1259 1986 Unknown [id number] 2.16.840.1.296170.3.579.2 .1259 1986 Unknown [id number] 2.16.840.1.915526.3.579.2 .9 1986 Unknown [id number] 2.16.840.1.473817.3.579.2 .1259 1959 Unknown [id number] 1959 Unknown [id number] 2.16.840.1.771985.19 1959 Unknown [id number] Unknown [id number] 2.16.840.1.878872.19 Unknown [id number] 2.16.840.1.374323.3.579.2 .531 Social History Date Type Detail Facility Unknown if ever smoked [facility] Start: 09-27-2023 End: 03-25-2025 [facility]igned At [facility] Start: 10-04-2022 End: 03-15-2024 Tobacco smoking status Never smoked tobacco (finding) [facility] Start: 1985 Sex Assigned At Female F [facility] Start: 10-04-2023 End: 11-27-2023 Tobacco smoking status [...] Start: 09-29-2023 End: 03-15-2024 Tobacco Comment Vape [facility] Work Phone: Start: 1985 Sex assigned at Not on file [facility] Work Phone: Tobacco Vape Tobacco Use :. Current vaping or e-cigarette use Smokeless Tobacco Use:. Vaping [facility] Tobacco smoking status No Smokin g Status Entered [facility] Start: 03-15-2024 Tobacco use and exposure User of smokeless tobacco [facility] Work Phone: Start: 03-15-2024 End: 05-14-2024 Alcoholic beverage intake Ex-drinker (finding) [facility] Work Phone: Start: 03-05-2024 End: 05-14-2024 Exposure to SARS-CoV-2 (event) Not sure [facility] Are you now , , , [...] Sometimes true [facility] Sex Female (finding) [facility] NEGATED: Highlighted row N [facility] Functional Status Date Assessment Result Facility 07-30-2024 Functional Status N/A [facility] 07-05-2023 Functional Status N/A [facility] 10-04-2022 Functional Status N/A [facility] Clinical Notes 07-22-2021 to 03-27-2025 Telephone Encounter - Kirby Alberto MD - 03/27/2025 11:50 AM EDTTelephone Encounter - Kirby Alberto MD - 03/27/2025 11:50 AM EDTMsin Alberto MD - 03/26/2025 3:21 PM EDTDischarge Instructions Note Date & Type Note Facility 03-27-2025 Telephone encounter Note [facility] 03-27-2025 Miscellaneous Notes documented in this encounter [facility] 03-26-2025 History of Present illness Narrative Associated [...] 15 MG capsule documented in this encounter [facility] 12-12-2024 History of Present illness Narrative Images from the original note were not included. Reason for Appointment: EMG Patient: Lul Pelaez : 1985 EMG Computer: [employer] Referring Physician: Jb Renae CNP EMG: IRWIN operations forester: Kendell Corado RT(R) Office Location: [place] Reason for EMG: c/o numbness/tingling in bilateral hands R>L, neck pain into right shoulder, pain in 3rd 4th digits on right hand. No hx of DM. Not on blood thinners. Comments: Procedure was explained to the patient who expressed understanding. Patient appeared to have tolerated the test well despite some discomfort due to the nature of the test. documented in this encounter [facility] 09-25-2024 History of Present illness Narrative Associated [...] and without status migrainosus, not intractable ([facility]) GALLO stable and continue elavil. Use fioricet PRN. Associated Problem(s): Generalized anxiety disorder ([facility]) Symptoms controlled with paxil and [...] and continue adderall. documented in this encounter [facility] 07-30-2024 Hospital Discharge instructions Patient Education 07/30/2024 [...] include: ?8 oz (237 mL) of milk, afewxou-xbeuwcdkkytu-nuhgx milk, and calcium-fortifiedfruit juice. Calcium-fortified means that [...] ?Spinach (cooked), rhubarb, beets, sweet potatoes, and Ugandan chard. ?Peanuts. ?Potato chips, nicaraguan fries, and baked potatoes with skin on. ?Nuts and nut products. ?Chocolate. If you regularly take a diuretic medicine, make sure to eat at least 1 or 2 servings of fruits or vegetables that are high in potassium each day. These include: ?Avocado. ?Banana. ?[place], prune, carrot, or tomato juice. ?Baked potato. [...] magnesium, fish oil, or vitamin B6. Take brde-pmw-mvjefza and prescription medicines only as told by [...] Casseroles. Pizza. Lasagna. Frozen meals. Potato chips. German fries. The items listed above may not [...] provider. Document Revised: 12/16/2022 Document Reviewed: 12/16/2022 [employer] Patient Education 2023 [employer] Platform. Follow Up Care 07/05/2023 15:47:59 With:CLARITZA JOHNSTON, Anna Lorenzana, URL Address: [facility] [address] [place] [address] [phone] When: Unknown [facility] 07-30-2024 Note Patient Education Nephrology Dietary [...] ? 8 oz (237 mL) of milk, yaguero-czlupkfbjnna-kzynh milk, and calcium-fortifiedfruit juice. Calcium-fortified means that [...] Spinach (cooked), rhubarb, beets, sweet potatoes, and Ugandan chard. ? Peanuts. ? Potato chips, nicaraguan fries, and baked potatoes with skin on. ? Nuts and nut products. ? Chocolate. ??? If you regularly take a diuretic medicine, make sure to eat at least 1 or 2 servings of fruits or vegetables that are high in potassium each day. These include: ? Avocado. ? Banana. ? [place], prune, carrot, or tomato juice. ? Baked [...] fish oil, or vitamin B6. ??? Take ikno-qvu-qqtvzrq and prescription medicines only as told by your health (more content not included)... [facility] 07-05-2024 History of Present illness Narrative [...] 50 MG tablet documented in this encounter [facility] 06-05-2024 History of Present illness Narrative Associated [...] 24 hr capsule documented in this encounter [facility] 05-14-2024 History of Present illness Narrative Images [...] Gorge Weldon PA-C documented in this encounter [facility] Work Phone: 05-07-2024 Hospital Discharge instructions [...] your next scheduled visit. Dr. Jarred Negrete: [phone] Dr. Florentino Vinson: [phone] Yara Aguirre RN & Kelsey Robbins RN. Evenings/Weekends Emergency Dr. Negrete: [phone] - please ask for the ENT resident on-call Evenings/Weekends Emergency Dr. Vinson: [phone] documented in this encounter [facility] Work Phone: 05-07-2024 History and physical [...] care of this patient. Gorge Weldon PA-C [facility] Work Phone: 05-07-2024 History and physical note [...] care of this patient. Gorge Weldon PA-C documented in this encounter [facility] Work Phone: 03-15-2024 History of Present [...] Nasopharynx: Clear, no discharge, no masses/lesions Modified Lola Maneuver: Performed with a cotton tipped applicator, [...] reduction with lateralization. documented in this encounter [facility] Work Phone: 09-22-2023 Evaluation note Encounter Date Diagnosis Assessment Notes Sep, Dysuria (ICD-10 - R30.0) Discussed dipstick findings with patient. Advised patient that there is no evidence of acute UTI. Advised that this is likely related to stone. Recommended ER for further evaluation and workup. Patient verbalizes understanding and is agreeable with treatment plan [facility] 09-25-2023 Hospital Discharge instructions Patient Education [...] include: ?8 oz (237 mL) of milk, auijpqv-uecoegslfaij-nqixd milk, and calcium- fortifiedfruit juice. Calcium-fortified means [...] ?Spinach (cooked), rhubarb, beets, sweet potatoes, and Ugandan chard. ?Peanuts. ?Potato chips, nicaraguan fries, and baked potatoes with skin on. ?Nuts and nut products. ?Chocolate. If you regularly take a diuretic medicine, make sure to eat at least 1 or 2 servings of fruits or vegetables that are high in potassium each day. These include: ?Avocado. ?Banana. ?[place], prune, carrot, or tomato juice. ?Baked potato. [...] magnesium, fish oil, or vitamin B6. Take shyz-yve-tzbzxky and prescription medicines only as told by [...] Casseroles. Pizza. Lasagna. Frozen meals. Potato chips. German fries. The items listed above may not [...] provider. Document Revised: 05/17/2022 Document Reviewed: 05/17/2022 [employer] Patient Education 2022 [employer] Platform. Follow Up Care 02/08/2023 16:17:30 With:CHARLOTTE SCALES PA-C, URL Address: [address] [facility] [address] [phone] When: Unknown Comments:1 yr w/ BOGDAN and [facility] 06-18-2023 Evaluation note* Encounter Date Diagnosis [...] fever. Patient verbalized understanding of treatment plan. [facility] 01-16-2023 Hospital Discharge instructions Patient Education [...] include: ?Spinach. ?Rhubarb. ?Beets. ?Potato chips and nicaraguan fries. ?Nuts. If you regularly take a diuretic medicine, make sure to eat at least 1 2 fruits or vegetables high in potassium each day. These include: ?Avocado. ?Banana. ?[place], prune, carrot, or tomato juice. ?Baked potato. [...] Casseroles. Pizza. Lasagna. Frozen meals. Potato chips. German fries. Summary You can reduce your risk [...] 12/31/2011 Document Revised: 12/26/2019 Document Reviewed: 08/16/2017 [employer] Patient Education 2020 [employer] Platform. Follow Up Care 08/30/2022 15:20:43 With:CLARITZA JOHNSTON, Anna Lorenzana, URL Address: [facility] [address] [place] [address]- When: Unknown [facility] 12-14-2022 Evaluation note* Encounter Date Diagnosis [...] needed for cough or shortness of breath [facility] 08-04-2022 Evaluation note* Encounter Date Diagnosis [...] care provider if no improvement of symptoms. [facility] 11-03-2021 Evaluation note* Encounter Date Diagnosis [...] Patient care instructions given in writting by [facility] Care At Home document. [facility] Evaluation + Plan note Future Appointments Appointment Date:01/10/2023 03:15:00 PM Scheduled Provider:Anna JERRY MD Location:[facility] Appointment Type:URO Office Visit Diagnostic Tests Pending * Creatinine 10/04/22 [facility] evaluation + Plan note Future Appointments Appointment Date:07/10/2024 02:00:00 PM Scheduled Provider:CHARLOTTE SCALES PA-C Location:[facility] Appointment Type:URO Office Visit [facility] evaluation + Plan note Future Appointments Appointment Date:07/29/2025 09:45:00 AM Scheduled Provider:Anna JERRY MD Location:[facility] Appointment Type:URO Office Visit Diagnostic Tests Pending * Electrolyte Panel 07/30/24 [facility] evaluation noteNo assessment information available [facility] Work Phone: Evaluation note* Diagnosis Migraine [...] apnea (adult) (pediatric) documented in this encounter [facility]* Diagnosis Obstructive sleep apnea (adult) (pediatric) documented in this encounter [facility]* Diagnosis Obstructive sleep apnea (adult) (pediatric)- Primary Generalized anxiety disorder (CMS/HCC) Generalized anxiety disorder Migraine without aura and without status migrainosus, not intractable (CMS/HCC) Bilateral leg edema Edema 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 documented in this encounter [facility]* Diagnosis Nasal deformity- Primary [...] deformity of nose documented in this encounter [facility] Work Phone: Evaluation note* Diagnosis Deviated nasal septum- Primary Deviated nasal septum Sore of lip Nasal congestion Other diseases of nasal cavity and sinuses Nasal turbinate hypertrophy Hypertrophy of nasal turbinates Nasal deformity Acquired deformity of nose Anxiety Anxiety state, unspecified Depression Depressive disorder, not elsewhere classified ADHD documented in this encounter [facility] Work Phone: Evaluation note* Diagnosis Deviated nasal septum documented in this encounter [facility] Work Phone: Evaluation note* Diagnosis Migraine [...] apnea (adult) (pediatric) documented in this encounter [facility]* Diagnosis Migraine without aura [...] apnea (adult) (pediatric) documented in this encounter [facility]* Diagnosis Migraine without aura and [...] apnea (adult) (pediatric) documented in this encounter [facility]* Diagnosis Migraine without aura [...] apnea (adult) (pediatric) documented in this encounter [facility]* Diagnosis Migraine without aura [...] apnea (adult) (pediatric) documented in this encounter [facility]* Diagnosis Migraine without aura [...] apnea (adult) (pediatric) documented in this encounter [facility]* Diagnosis Onset Date Resolution Status Admit Date Annual physical exam acute May 3:01pm [facility] Work Phone: History general Narrative - Reported* Type Description Date Medical History kidney stones Surgical History C section Surgical History appendectomy Surgical History cholecystectomy Surgical History hernia repair Surgical History lithotripsy Surgical History wisdom teeth extract Hospitalization History see above [facility] History general Narrative - Reported* Type Description Date Medical History kidney stones Medical History anxiety Medical History migraine headache Surgical History C section Surgical History appendectomy Surgical History cholecystectomy Surgical History hernia repair Surgical History lithotripsy Surgical History wisdom teeth extract Hospitalization History see above [facility] History general Narrative - Reported* Type Description Date Medical History kidney stones Medical History anxiety Medical History migraine headache Surgical History C section Surgical History appendectomy Surgical History cholecystectomy Surgical History hernia repair Surgical History lithotripsy Surgical History wisdom teeth extract Surgical History cortisone shots in back Hospitalization History see above [facility] Hospital course Narrative No data available for this section [facility] Hospital Discharge instructions No data available for this [facility] No data available for this section [facility] reason for referral (narrative)No reason for referral [facility]: Reason for visit Narrative* Other Medical (Routine) - Closed Specialty Diagnoses / Procedures Referred By Contac t Referred To Contact Neurology Diagnoses Paresthesia of skin Pain in right wrist Procedures NJ NEEDLE EMG EA EXTREMTY W/PARASPINL AREA COMPLETE [place] NERVE CONDUCTION STUDIES 9-10 STUDIES bJ Renae MD [address] [place] [address] fax: Lul Chang DO [id number] [place] [address] Phone: tel: fax: Referral ID Status Reason Start Date Expiration Date V isits Requested Visits Authorized [id number] Closed Perform Procedure 12/04/2024 06/02/2025 1 1 [...] section and content) DATE CREATED AUTHOR 03/14/2018 [facility] DATE CREATED AUTHOR AUTHOR'S ORGANIZ ATION 01/19/2023 [facility] DATE CREATED AUTHOR AUTHOR'S ORGANIZ ATION 03/19/2023 [facility] DATE CREATED AUTHOR AUTHOR'S ORGANIZ ATION 04/03/2024 [facility] EPIC DATE CREATED AUTHOR AUTHOR'S ORGANIZ ATION 05/15/2024 [facility] DATE CREATED AUTHOR AUTHOR'S ORGANIZ ATION 06/21/2024 [facility] DATE CREATED AUTHOR AUTHOR'S ORGANIZ ATION 06/22/2024 [facility] DATE CREATED AUTHOR AUTHOR'S ORGANIZ ATION 01/06/2025 [facility] DATE CREATED AUTHOR AUTHOR'S ORGANIZ ATION 03/30/2025 [facility] EPIC REASON FOR VISIT [...] Deformity [M95.0] Inferior turbinate Hypertrophy [J34.3] Procedures NJ SEPTOPLASTY/SUBMUCOUS RESECJ W/WO CARTILAGE GRF NJ CARTILAGE GRAFT NASAL SEPTUM NJ REPAIR NASAL VESTIBULAR STENOSIS NJ FRACTURE NASAL INFERIOR TURBINATE THERAPEUTIC NJ ABLTJ SOF TISS INF TURBS UNI/BI SUPFC INTRAMURAL SEPTOPLASTY, INFERIOR TURBINATE REDUCTION, NASAL VALVE REPAIR, RECONSTRUCTION OF NOSE SEPTOPLASTY, INFERIOR TURBINATE REDUCTION, NASAL VALVE REPAIR, RECONSTRUCTION OF NOSE SEPTOPLASTY, INFERIOR TURBINATE REDUCTION, NASAL VALVE REPAIR, RECONSTRUCTION OF NOSE SEPTOPLASTY, INFERIOR TURBINATE REDUCTION, NASAL VALVE REPAIR, RECONSTRUCTION OF NOSE SEPTOPLASTY, INFERIOR TURBINATE REDUCTION, NASAL VALVE REPAIR, [place] [address] [place] [address] [facility] [address] [address] Referral ID Status Reason Start Date Expiration Date Visits Re quested Visits Authorized [id number] 1 1 Reason Comments Post-op Reason Onset [...] Member Role Status Dates Leana Soler , TELEVISION CAMERA OPERATOR Attending Provider Active Director Broadcast Relationship Specialty Start Date End Date Kirby Alberto MD [address] [place] [address] PCP - General Family Medicine 04/13/23 Milton Thayer MD [address] [place] [address] Family Medicine 04/13/23 Director Broadcast Relationship Specialty Start Date End Date Kirby Alberto MD [address] [place] [address] PCP - General Family Medicine 04/13/23 Milton Thayer MD [address] [place] [address] Family Medicine 04/13/23 Director Broadcast Relationship Specialty Start Date End Date Kirby Alberto MD [address] [place] [address] PCP - General Family Medicine 04/13/23 Milton Thayer MD [address] [place] [facility] [place] [address] Family Medicine 04/13/23 Director Broadcast Relationship Specialty Start Date End Date Kirby Alberto MD [address] [place] [address] PCP - General Family Medicine 04/13/23 Milton Thayer MD [address] [place] [facility] [place] [address] Family Medicine 04/13/23 Director Broadcast Relationship Specialty Start Date End Date Kirby Alberto MD [address] [place] [address] PCP - General Family Medicine 04/13/23 Milton Thayer MD [address] [place] [facility] [place] [address] Family Medicine 04/13/23 Director Broadcast Relationship Specialty Start Date End Date Kirby Alberto MD [address] [place] [address] PCP - General Family Medicine 04/13/23 Milton Thayer MD [address] [facility] [place] [address] Family Medicine 04/13/23 Director Broadcast Relationship Specialty Start Date End Date Kirby Alberto MD [address] [place] [address] PCP - General Family Medicine 04/13/23 Director Broadcast Relationship Specialty Start Date End Date Kirby Alberto MD [address] [place] [address] PCP - General Family Medicine 04/13/23 Milton Thayer MD [address] [place] [address] Family Medicine 04/13/23 Director Broadcast Relationship Specialty Start Date End Date Kirby Alberto MD [address] [place] [address] PCP - General Family Medicine 04/13/23 Milton Thayer MD [address] [place] [address] Family Medicine 04/13/23 Director Broadcast Relationship Specialty Start Date End Date Kirby Alberto MD [address] [place] [address] PCP - General Family Medicine 04/13/23 Milton Thayer MD [address] [place] [address] Family Medicine 04/13/23 Director Broadcast Relationship Specialty Start Date End Date Kirby Alberto MD [address] [place] [address] PCP - General Family Medicine 04/13/23 Milton Thayer MD [address] [place] [address] Family Medicine 04/13/23 Director Broadcast Relationship Specialty Start Date End Date Kirby Alberto MD [address] [place] [address] PCP - General Family Medicine 04/13/23 Milton Thayer MD [address] [facility] [place] [address] Family Medicine 04/13/23 Director Broadcast Relationship Specialty Start Date End Date Kirby Alberto MD [address] [place] [address] PCP - General Family Medicine 04/13/23 Milton Thayer MD [address] [facility] [place] [address] Family Medicine 04/13/23 Director Broadcast Relationship Specialty Start Date End Date Kirby Alberto MD [address] [place] [address] PCP - General Family Medicine 04/13/23 Milton Thayer MD [address] [facility] [place] [address] Family Medicine 04/13/23 Director Broadcast Relationship Specialty Start Date End Date Kirby Alberto MD [address] [place] [address] PCP - General Family Medicine 04/13/23 Milton Thayer MD [address] [facility] [place] [address] Family Medicine 04/13/23 Director Broadcast Relationship Specialty Start Date End Date Kirby Alberto MD [address] [place] [address] PCP - General Family Medicine 04/13/23 Milton Thayer MD [address] [place] [address] Family Medicine 04/13/23 Team Status: Active Member [...] BE BASED ON THE PRIMARY CLINICAL RECORDS. [employer] provides no warranty or guarantee of the accuracy or completeness of information in this document.
[2025-07-08 15:18] LABS: Hematocrit 45.0 % (36.0-48.0); Hemoglobin 15.3 g/dL (12.0-16.0); Immature Granulocytes Abs Auto 0.04 10^3/uL (0.00-0.03); Immature Granulocytes Pct Auto 0.4 % (0.0-0.5); Lymphocytes Absolute Auto 2.8 10^3/uL (1.2-3.8); Mean Corpuscular HGB Conc 34.0 g/dL (29.9-35.2); Mean Corpuscular Hemoglobin 30.6 pg (26.7-34.0); Mean Corpuscular Volume 90.0 fL (81.0-99.0); Platelet Count 323 10^3/uL (150-450); Red Blood Count 5.00 10^6/uL (4.20-5.40); White Blood Count 10.8 10^3/uL (4.0-11.0)
[2025-07-08 16:04] LABS: Alanine Aminotransferase 33 U/L (14-59); Albumin Globulin Ratio 1.0; Albumin Level 3.9 g/dL (3.4-5.0); Alkaline Phosphatase 117 U/L (46-116); Anion Gap 14.2; Aspartate Amino Transferase 19 U/L (15-37); Blood Urea Nitrogen 9.0 mg/dL (7.0-18.0); Calcium 9.0 mg/dL (8.5-10.1); Carbon Dioxide 27.1 mmol/L (21.0-32.0); Chloride 101 mmol/L (98-107); Cholesterol 199 mg/dL (<=200); Estimated GFR (African America >60 (>=60 mL/min/1.73m^2); Estimated GFR (Non-African Ame >60 (>=60 mL/min/1.73m^2); Globulin 4.1 g/dL; Glucose 117 mg/dL (74-106); HDL Cholesterol 72 mg/dL (40-60); Potassium 3.3 mmol/L (3.5-5.1); Sodium 139 mmol/L (136-145); Thyroid Stimulating Hormone 1.322 uIU/mL (0.358-3.740); Total Protein 8.0 g/dL (6.4-8.2); Triglycerides 170 mg/dL (<=150); VLDL CHOLESTEROL 34.0 mg/dL
== END 2025-07-08 14:57 | disposition home or self-care (01) ==
LOC: LAB 14:57
PROVIDERS: PCP Family Medicine; Visit Provider Family Medicine
DX: Z00.00 Encounter for general adult medical examination without abnormal findings (principal)
CPT/HCPCS: 36415; 80053; 80061; 83036; 84443; 85025

== ENCOUNTER 2025-07-29 08:53 | Outpatient (OUT) | payer OTHER, SELFPAY ==
--- OUTSIDE RECORDS SUMMARY | 2022-10-12 11:00 | XMS_ITS | Continuity of Care Document ---
Author Organization [facility] Address [address] [place] [address] Phone Care Team Providers Care Travel Administrator Name Role Phone Anton Velazquez DMD Unavailable Unavailable Allergies, Adverse Reactions, Alerts Substance Reaction Status Criticality Penicillins Skin irritation Active No Informati on Medications Medication Instructions Dosage Effective Dates (start - stop) Status Comments Topamax 25 mg tablet take 1 tablet by or al route every day 25 MG - Active Paxil 20 mg tablet take 1 tablet by ora l route every day 20 MG - Active Vitamin D3 10 mcg (400 unit) tablet once a day - Active Procedures Procedure Date Oral Hygiene Instruction Resin Composite 2s; Posterior 3 Resin Composite 2s; Posterior 3 Bitewings Four Films Prophylaxis Adult High Risk [employer] [place] Dis Sep Oral Hygiene Instruction Periodic Oral Eval Estab Patient 2022 Resin Composite 2s; Posterior 2 Oral Hygiene Instruction ROUTINE VENIPUNCTURE Resin Composite 2s; Posterior 2 Oral Hygiene Instruction [employer] [place] Dis Mar Oral Hygiene Instruction Prophylaxis Adult Oral Hygiene Instruction Resin Three Surfaces Anterior 2 Oral Hygiene Instruction Oral Hygiene Instruction Resin 4+ W/incis Angle Anterior 021 Prophylaxis Adult Oral Hygiene Instruction [employer] [place] Dis Jul Resin Composite 3s; Posterior 1 Intraoral-complete Series (bw) 21 [employer] [place] Dis Jun Comp Oral Eval New/estab Patient 2020 Advance Directives Directive Yes / No Effective Date File Name No Information Encounters Encounter Description Practice Location Reason(s) For Visit Diagnoses Date Provider Providers Copied on Encounter [facility], [address] [place] [address], [id number] , [place] tel:+ [phone] Dental Clinic fillings (chief complaint) Encounter for screening for dental disorders 3 Ozielliz Meekal. [address] [place], [place], [id number] , [place]. tel:[phone] [facility], [address] [place] [address], [id number] , [place] tel:+ [phone] Dental Clinic Adult Prophy (chief complaint) Encounter for screening for dental disorders 3 Valeriano Pollard. [address] [place] [address], [id number], [place]. tel:[phone] [facility], [address] [place] [address], [id number] , [place] tel:+ [phone] Dental Clinic Filling (chief complaint) Encounter for screening for dental disorders 2 Ozielliz Meekal. [address] [place], [place], [id number] , [place]. tel:+ [phone] [facility], [address] [place] [address], [id number] , [place] tel:+ [phone] [facility] needle stick draw (chief complaint) Contact with hypodermic needle, initial encounter 2 Marissa Mejia. [address] [place], [place], [id number] , [place]. tel:+ [phone] [facility], [address] [place] [address], [id number] , [place] tel:+ [phone] Dental Clinic aaron (chief complaint) Dental caries, unspecifiedEncounter for screening for dental disorders 2 Marcus Walton. [address] [place], [place], [id number] , [place]. tel: [phone] [facility], [address] [place], [place], [id number] , [place] tel: [phone] Dental Clinic Adult Prophy (chief complaint) Encounter for screening for dental disorders 2 Valeriano Pollard. [address] [place], [address], [place]. tel: [phone] [facility], [address] [place], [place], [id number] , [place] tel: [phone] Dental Clinic filling (chief complaint) Encounter for screening for dental disorders 2 Mike Mendoza. [address] [place], [address], [place]. tel: [phone] [facility], [address] [place], [place], [id number] , [place] tel: [phone] Dental Clinic Filling (chief complaint) Encounter for screening for dental disorders 1 Mike Mendoza. [address] [place], [address], [place]. tel: [phone] [facility], [address] [place], [place], [id number] , [place] tel: [phone] Dental Clinic prophy (chief complaint) Encounter for screening for dental disorders 1 Mike Mendoza. [address] [place], [address], [place]. tel: [phone] [facility], [address] [place], [place], [id number] , [place] tel: [phone] Dental Clinic aaron (chief complaint) aaron (chief complaint) Encounter for screening for dental disorder 1 Juanito Wesley. [address] [place], [place], [id number] , [place]. tel: [phone] [facility], [address] [place], [place], [id number] , [place] tel: [phone] Dental Clinic DN (chief complaint) Encounter for screening for dental disorders 1 Mike Mendoza. [address] [place] [address], [address], [place]. tel: [phone] Family History Family Member Type Diagnosis Age At Onset Father Problem Alive and well Mother Problem Alive and well Payers Payer name Insurance type Covered green party ID Tara grijalvaliu(kevyn) Narda Mckeon [facility] 17 [id number] Social History Type Description Quantity Date Captured Comments Alcohol Use Details Unknown Caffeine Use Details Unknown Tobacco Use Status Current non-smoker Smoking Status Former smoker Non-Smoking Tobacco Use Details : No Details Available : No Details Available [id number] SexFemaleSexual OrientationStraight or heterosexualGender [id number] Vital Signs Date / Time: Height Weight BMI Pulse Rate Blood Pressure Temperature Respiratory Rate Body Surface Area Head Circumference Head Circ. Percentile Wt./[place]. Percentile BMI percentile Pulse Ox Inhaled Ox 4:10 PM 69 /min 123/84 mm[Hg] 97.90 F Chief Complaint And Reason For Visit From encounter dated '10/12/2022 16:00'. fillings (chief complaint). Description: fillings Reason For Referral Reason For Referral No Information Plan Of Treatment Date Type Action Status Goal RLP. Due on due Goal Depression screening. Due on due Goal Influenza vaccine. Due on due Goal PRAPARE ASSESSMENT. Due on due Goal Tdap. Due on due Goal PRAPARE ASSESSMENT. Due on due Goal RLP. Due on due Goal Influenza vaccine. Due on due Goal Depression screening. Due on due Goal Tdap. Due on due Goal PRAPARE ASSESSMENT. Due on S due Goal Influenza vaccine. Due on Se p due Goal Depression screening. Due on due Goal Tdap. Due on due Goal RLP. Due on due Goal Depression screening. Due on due Goal Influenza vaccine. Due on due Goal Tdap. Due on due Goal RLP. Due on due Goal Tdap. Due on due Goal RLP. Due on due Goal Influenza vaccine. Due on due Goal Depression screening. Due on due Goal RLP. Due on due Goal Tdap. Due on due Goal Influenza vaccine. Due on due Goal Depression screening. Due on due History Of Present Illness Encounter Date Complaint History Of Prese nt Illness fillings fillings Adult Prophy Adult Prophy Filling Continue with tr eatment needle stick draw Patient was in volved in needle stick accident in dental this morning. Consent signed ot send labs to Dr. Delong's office. Rapid HIV negative. lab draw successful from left AC. [place] [place] RN aaron aaron Adult Prophy Adult Prophy filling filling Filling Continue with tr eatment prophy prophy aaron aaron aaron DN DN Functional Status Date Functional Assessmen t No Information Instructions Date Instruction Additional Infor mation No Information Assessments Type Assessment Date No Information Patient Care Teams Name Effective Dates (start - stop) Status Members No Information
--- OUTSIDE RECORDS SUMMARY | 2025-07-29 08:59 | XMS_ITS | Encounter Summary ---
Author Organization [facility] Address [address] [place] [address] Care Team Providers Care Breaster Name Role Phone Kirby Delong MD Primary Care Provider [phone] Mary Thayer MD Unavailable Encounter Details DateTypeDepartmentCare Team (Latest Contact Info)Lildwfdyoqp48/06/2024Clinisync Result Encounter [facility] External Department Unsolicited Provider, Generic External Data Social History Tobacco UseTypesPacks/DayYears UsedDateSmoking Tobacco: FormerCigarettes0.33 Smokeless Tobacco: Never Comments:Vape Alcohol UseStandard Drinks/WeekCommentsNever0 (1 standard drink = 0.6 oz pure alcohol)B1300 Health LiteracyAnswerDate RecordedHow often do you need to have someone help you when you read instructions, pamphlets, or other written material from your doctor or pharmacy?Never03/25/2025Humiliation, Afraid, Rape, and Kick questionnaireAnswerDate RecordedWithin the last year, have you been afraid of your partner or ex-partner?No03/25/2025Within the last year, have you been humiliated or emotionally abused in other ways by your partner or ex-partner?No03/25/2025Within the last year, have you been kicked, hit, slapped, or otherwise physically hurt by your partner or ex-partner?No03/25/2025Within the last year, have you been raped or forced to have any kind of sexual activity by your partner or ex-partner?No03/25/2025Social Connection and Isolation Panel AnswerDate RecordedIn a typical week, how many times do you talk on the phone with family, friends, or neighbors?Twice a week03/25/2025How often do you get together with friends or relatives?Once a week03/25/2025How often do you attend confucianist or uatsdin services?More than 4 times per year03/25/2025Do you belong to any clubs or organizations such as confucianist groups, unions, fraternal or athletic groups, or school groups?No03/25/2025How often do you attend meetings of the clubs or organizations you belong to?More than 4 times per year03/25/2025 Are you , , , , never , or living with a partner?Bjryerhy89/07/2025UDIT-CAnswerDate RecordedQ1: How often do you have a drink containing alcohol?Never03/25/2025Q2: How many drinks containing alcohol do you have on a typical day when you are drinking?Patient does not drink 03/25/2025Q3: How often do you have six or more drinks on one occasion?Never 03/25/2025Overall Financial Resource Strain (CARDIA)AnswerDate RecordedHow hard is it for you to pay for the very basics like food, housing, medical care, and heating?Hard03/25/2025PHQ-2AnswerDate RecordedPatient Health Questionnaire-2 Dfgke534Finblue mountain hospital, inc. Effie of Occupational Health - Occupational Stress QuestionnaireAnswerDate RecordedDo you feel stress - tense, restless, nervous, or anxious, or unable to sleep at night because yourmind is troubled all the time - these days?Rather much03/25/2025Exercise Vital SignAnswerDate RecordedOn average, how many days per week do you engage in moderate to strenuous exercise (like a brisk walk)?2 days03/25/2025On average, how many minutes do you engage in exercise at this level?20 min03/25/2025Hunger Vital SignAnswerDate Recorded Within the past 12 months, you worried that your food would run out before you got the money to buymore.Sometimes true03/25/2025Within the past 12 months, the food you bought just didn't last and you didn't have money to get more.Sometimes true03/25/2025PRAPARE - TransportationAnswerDate RecordedIn the past 12 months, has lack of transportation kept you from medical appointments or from getting medications?No03/25/2025In the past 12 months, has lack of transportation kept you from meetings, work, or from getting things needed for daily living?No 03/25/2025Housing Stability Vital SignAnswerDate RecordedIn the last 12 months, was there a time when you were not able to pay the mortgage or rent on time?No 09/27/2023In the last 12 months, how many places have you lived?In the last 12 months, was there a time when you did not have a steady place to sleep or slept in [place] (including now)?No09/27/2023Housing Stability Vital SignAnswerDate RecordedIn the last 12 months, was there a time when you were not able to pay the mortgage or rent on time?No03/25/2025In the past 12 months, how many times have you moved where you were living?t any time in the past 12 months, were you homeless or living in a jail (including now)?No 03/25/2025CommentsUnknownSex and Gender InformationValueDate RecordedSex Assigned at BirthNot on fileLegal KhpGnquni22/15/2023 10:09 PM EDTGender IdentityNot on fileSexual OrientationNot on filedocumented as of this encounter Functional Status * AUDIT-C ScoreAnswerDate of WnjvfvndkuFftcbd723/07/2025 11:35 AM EDMichael, Generic * Q1: How often do you have a drink containing alcohol?AnswerDate of Assessment JkzdwtOlwfn32/07/2025 11:35 AM Lety Generic * Q2: How many drinks containing alcohol do you have on a typical day when you are drinking?AnswerDate of AssessmentAuthorPatient does not drink03/25/2025 11:35 AM Lety, Generic * Q3: How often do you have six or more drinks on one occasion?AnswerDate of YancxfnilgDifwqoDfvao79/07/2025 11:35 AM EDTMychart, Generic documented as of this encounter Plan of Treatment Not on file documented as of this encounter Procedures Procedure NamePriorityDate/TimeAssociated DiagnosisCommentsCT ABDOMEN PELVIS WO/W CON08/24/2024 4:45 AM EST documented in this encounter Results * CT ABDOMEN PELVIS WO/W CON (08/24/2024 4:45 AM EST)Anatomical RegionLaterality ModalityOtherSpecimen (Source)Anatomical Location / LateralityCollection Method / VolumeCollection TimeReceived Time08/24/2024 4:45 AM EST Narrative 08/24/2024 4:48 AM EST [facility] ?[address] ? [place] [address] ? [address] Scan Report ? Signed ? Patient: ASAM,LUL M ? MR#: [id number] ?? : 1985 ?Acct:[id number] ?? Age/Sex: 39 / F ?ADM Date: 08/23/24 ?? Loc: CT ? Attending Dr: Anna Jerry M.D. ? Ordering Physician: Anna Jerry M.D. ?? Date of Service: 08/23/24 ?? Procedure(s): CT abdomen pelvis wo/w con ?? Accession Number(s): [id number] ? cc: Kirby Delong M.D. ? [facility] ? [address] [place] [address] ? [place] [address] ? Patient Name: ?? LUL BRITTON ? MRN: [facility]:[id number] ? date: 1985 ?Sex: F ?? Assigned Patient Location: CT ?? Current Patient Location: ? Accession/Order Number: [id number] ?? Exam Date: 08/23/2024 ??09:13 ?Report Date: 08/24/2024 ??04:45 ? At the request of: ?? ANNA ??CLARITZA ? Procedure: ??CT abdomen pelvis wo/w con ? EXAMINATION: CT abdomen pelvis wo/w con ? HISTORY: Kidney Stone, Flank Pain ? COMPARISON: No relevant comparison available. ? TECHNIQUE: Axial, Coronal, and Sagittal images were obtained without and/or ?? with IV contrast as indicated by examination type. Dose reduction techniques ?? were achieved by using automated exposure control and/or adjustment of mA ?? and/or kV according to patient size and/or use of iterative reconstruction ?? technique. ? FINDINGS: ?? LUNG BASES: No visible pulmonary or pleural disease. ?? LIVER: No enlargement, atrophy, suspicious density, or significant focal ?? lesion. ?? BILIARY: No dilatation or calcification. ?? PANCREAS: No lesion, fluid collection, or abnormal duct dilatation. ?? SPLEEN: No enlargement or focal lesion. ?? ADRENALS: No mass or enlargement. ?? KIDNEYS: Numerous nonobstructing calcifications bilaterally, largest is 7 mm. ?? No ureteral stones. Small cysts favoring benign etiology within left kidney ?? BOWEL/MESENTERY: No bowel wall thickening, obstruction, or mass. ?? AORTA/VASCULAR: No aneurysm or dissection. ?? RETROPERITONEUM: No mass or adenopathy. ?? LYMPH NODES: No adenopathy. ?? URINARY BLADDER: No visible focal wall thickening, lesion, or calculus. ?? PELVIC ORGANS: No visible mass. Pelvic organs appropriate for patient age. ?? ABDOMINAL WALL: No mass or hernia. ?? BONES: No bony lesion or fracture. ?? OTHER: Negative. ? CT/CT abdomen pelvis wo/w con ?? IMPRESSION: ? 1. Bilateral nonobstructing nephrolithiasis. No acute findings. ? Electronically authenticated by: DEXTER ??THUY ?? Date: 08/24/2024 ??04:45 ? Dictated By: ?Dexter Garcia M.D. ? Signed By: ?08/24/24 0448 ? DD/ 0445 ? TD/TT: ? Straddle Carrier Operator: Procedure Note Radiology, Radiologist, - 08/24/2024 [place] [address] CT Scan Report Signed Patient: LUL BRITTON MMR#: [id number] : 1985Acct:[id number] Age/Sex: 39 / FADM Date: 08/23/24 Loc: CT Attending Dr: Anna Jerry M.D. Ordering Physician: Anna Jerry M.D. Date of Service: 08/23/24 Procedure(s): CT abdomen pelvis wo/w con Accession Number(s): [id number] cc: Kirby Delong M.D. The [address] [address] Patient Name: LUL BRITTON MRN: [facility]:[id number] date: 1985 Sex: F Assigned Patient Location: CT Current Patient Location: Accession/Order Number: [id number] Exam Date: 08/23/2024 09:13 Report Date: 08/24/2024 04:45 At the request of: ANNA JERRY Procedure: CT abdomen pelvis wo/w con EXAMINATION: CT abdomen pelvis wo/w con HISTORY: Kidney Stone, Flank Pain COMPARISON: No relevant comparison available. TECHNIQUE: Axial, Coronal, and Sagittal images were obtained withoutand/or with IV contrast as indicated by examination type. Dose reductiontechniques were achieved by using automated exposure control and/or adjustment of mA and/or kV according to patient size and/or use of iterative reconstruction technique. FINDINGS: LUNG BASES: No visible pulmonary or pleural disease. LIVER: No enlargement, atrophy, suspicious density, or significant focal lesion. BILIARY: No dilatation or calcification. PANCREAS: No lesion, fluid collection, or abnormal duct dilatation. SPLEEN: No enlargement or focal lesion. ADRENALS: No mass or enlargement. KIDNEYS: Numerous nonobstructing calcifications bilaterally, largest is 7mm. No ureteral stones. Small cysts favoring benign etiology within leftkidney BOWEL/MESENTERY: No bowel wall thickening, obstruction, or mass. AORTA/VASCULAR: No aneurysm or dissection. RETROPERITONEUM: No mass or adenopathy. LYMPH NODES: No adenopathy. URINARY BLADDER: No visible focal wall thickening, lesion, or calculus. PELVIC ORGANS: No visible mass. Pelvic organs appropriate for patient age. ABDOMINAL WALL: No mass or hernia. BONES: No bony lesion or fracture. OTHER: Negative. CT/CT abdomen pelvis wo/w con IMPRESSION: 1. Bilateral nonobstructing nephrolithiasis. No acute findings. Electronically authenticated by: DEXTER GARCIA Date: 08/24/2024 04:45 Dictated By: Dexter Garcia M.D. Signed By:08/24/24447 DD/ 4 TD/TT: Straddle Carrier Operator: Authorizing ProviderResult TypeResult StatusGeneric External Data Provider CLINISYNC IMAGINGFinal Result documented in this encounter Visit Diagnoses Not on filedocumented in this encounter Care Teams Team MemberRelationshipSpecialtyStart DateEnd Date Kirby Delong MD PCP - GeneralFamily Medicine04/13/23 Mary Thayer MD [address] [place] [address] Family Medicine04/13/23documented as of this encounter
--- OUTSIDE RECORDS SUMMARY | 2025-07-29 08:59 | XMS_ITS | Encounter Summary ---
Author Organization [facility] Address [address] [place] [address] Care Team Providers Care Machine Accountant Name Role Phone Kirby Delong MD Primary Care Provider [phone] Mary Thayer MD Unavailable Encounter Details DateTypeDepartmentCare Team (Latest Contact Info)Ymkylnnxusx11/13/2024Clinisync Result Encounter [facility] External Department Unsolicited Provider, [...] relatives?Once a week03/25/2025How often do you attend caodaism or confucianist services?More than 4 times per year03/25/2025Do you belong to any clubs or organizations such as caodaism groups, unions, fraternal or athletic groups, or school groups?No03/25/2025How often do you attend meetings of the clubs or organizations you belong to?More than 4 times per year03/25/2025 Are you , , , , never , or living with a partner?Hkspsjsd34/07/2025UDIT-CAnswerDate RecordedQ1: How often do you have a [...] medical care, and heating?Hard03/25/2025PHQ-2AnswerDate RecordedPatient Health Questionnaire-2 Spbir660Finut[facility] hospital [place] of Occupational Health - Occupational Stress QuestionnaireAnswerDate [...] steady place to sleep or slept in [place] (including now)?No09/27/2023Housing Stability Vital SignAnswerDate RecordedIn the last 12 months, was there a time when you were not able to pay the mortgage or rent on time?No03/25/2025In the past 12 months, how many times have you moved where you were living?t any time in the past 12 months, were you homeless or living in a [facility] (including now)?No 03/25/2025CommentsUnknownSex and Gender InformationValueDate RecordedSex Assigned at BirthNot on fileLegal AjbOrrzqj92/15/2023 10:09 PM EDTGender IdentityNot on fileSexual OrientationNot on filedocumented as of this encounter Functional Status * AUDIT-C ScoreAnswerDate of JcpnaefmrlKueebm775/07/2025 11:35 AM EDMichael, Generic * Q1: How often do you have a drink containing alcohol?AnswerDate of Assessment JpspnyAlfxn09/07/2025 11:35 AM Lety Generic * Q2: How many drinks containing alcohol do you have on a typical day when you are drinking?AnswerDate of AssessmentAuthorPatient does not drink03/25/2025 11:35 AM Lety, Generic * Q3: How often do you have six or more drinks on one occasion?AnswerDate of JqyiuulecjIymmhkIokrs80/07/2025 11:35 AM EDTMychart, Generic documented as of this encounter Plan of Treatment Not on file documented as of this encounter Procedures Procedure NamePriorityDate/TimeAssociated DiagnosisCommentsXR ABDOMEN 1V 07/01/2024 9:06 AM EDT documented in this encounter Results * XR ABDOMEN 1V (07/01/2024 9:06 AM EDT)Anatomical RegionLateralityModalityOther Specimen (Source)Anatomical Location / LateralityCollection Method / Volume Collection TimeReceived Time07/01/2024 9:06 AM EDT Narrative 07/01/2024 9:[address] [facility] ?[address] ? [place] [address] ?XRay Report ? Signed ? Patient: WALLYKristelLUL M ? MR#: [id number] ?? : 1985 ?Acct:[id number] ?? Age/Sex: 38 / F ?ADM Date: 06/30/24 ?? Loc: [place] ? Attending Dr: Charlotte YEE ? Ordering Physician: Charlotte Scales ?? Date of Service: 06/30/24 ?? Procedure(s): XR abdomen 1V ?? Accession Number(s): [id number] ? cc: Kirby Delong M.D.; Charlotte cSales ? [facility] ? [address] ? [place] [address] ? Patient Name: ?? LUL BRITTON ? MRN: [facility]:[id number] ? date: 1985 ?Sex: F ?? Assigned Patient Location: [place] ?? Current Patient Location: ? Accession/Order Number: [id number] ?? Exam Date: 06/30/2024 ??09:13 ?Report Date: 07/01/2024 ??09:06 ? At the request of: ?? CHARLOTTE SCALES ? Procedure: ??XR abdomen 1V ? EXAMINATION: XR abdomen 1V ? HISTORY: KIDNEY STONE N20.0 ? COMPARISON: XR abdomen 09/22/2023 ? FINDINGS: ?? KIDNEY/URETER - RIGHT: No visible renal or ureteral calcifications. ?? KIDNEY/URETER - LEFT: No visible renal or ureteral calcifications. ?? PELVIS: No visible ureteral stones. Clearing of previously seen lower right ?? pelvic calcification. ? BOWEL: No abnormal dilation or deviation. ?? BONES: No acute abnormality. ?? OTHER: Surgical clips within right upper quadrant. ? XR/XR abdomen 1V ?? IMPRESSION: ? 1. No visible urinary tract calculi. ? Electronically authenticated by: DEXTER ??THUY ?? Date: 07/01/2024 ??09:06 ? Dictated By: ?Dexter Garcia M.D. ? Signed By: ?07/01/24 0909 ? DD/ 0906 ? TD/TT: ? Doctor Naturopathic: Procedure Note Radiology, Radiologist, - 07/01/2024 [place] [address] XRay Report Signed Patient: LUL BRITTON MMR#: [id number] : 1985Acct:[id number] Age/Sex: 38 / FADM Date: 06/30/24 Loc: [place] Attending Dr: Charlotte YEE Ordering Physician: Charlotte Scales Date of Service: 06/30/24 Procedure(s): XR abdomen 1V Accession Number(s): [id number] cc: Kirby Delong M.D.; Charlotte Scales The [place] [address] Patient Name: LUL BRITTON MRN: [facility]:[id number] date: 1985 Sex: F Assigned Patient Location: Current Patient Location: Accession/Order Number: [id number] Exam Date: 06/30/2024 09:13 Report Date: 07/01/2024 09:06 At the request of: CHARLOTTE SCALES Procedure: XR abdomen 1V EXAMINATION: XR abdomen 1V HISTORY: KIDNEY STONE N20.0 COMPARISON: XR abdomen 09/22/2023 FINDINGS: KIDNEY/URETER - RIGHT: No visible renal or ureteral calcifications. KIDNEY/URETER - LEFT: No visible renal or ureteral calcifications. PELVIS: No visible ureteral stones. Clearing of previously seen lowerright pelvic calcification. BOWEL: No abnormal dilation or deviation. BONES: No acute abnormality. OTHER: Surgical clips within right upper quadrant. XR/XR abdomen 1V IMPRESSION: 1. No visible urinary tract calculi. Electronically authenticated by: DEXTER GARCIA Date: 07/01/2024 09:06 Dictated By: Dexter Garcia M.D. Signed By:07/01/24908 DD/ 5 TD/TT: Doctor Naturopathic: Authorizing ProviderResult TypeResult StatusGeneric External Data Provider CLINISYNC IMAGINGFinal Result documented in this encounter Visit Diagnoses Not on filedocumented in this encounter Care Teams Team MemberRelationshipSpecialtyStart DateEnd Date Kirby Delong MD PCP - GeneralFamily Medicine04/13/23 Mary Thayer MD [address] [place] [address] Family Medicine04/13/23documented as of this encounter
--- OUTSIDE RECORDS SUMMARY | 2025-07-29 08:59 | XMS_ITS | Encounter Summary ---
Author Organization [facility] Address [address] [place] [address] Care Team Providers Care Paint Mixer Machine Name Role Phone Kirby Delong MD Primary Care Provider [phone] Mary Thayer MD Unavailable Encounter Details DateTypeDepartmentCare Team (Latest Contact Info)Loexxrufzzt72/04/2024Clinisync Result Encounter [facility] External Department Unsolicited Provider, Generic External Data Social History Tobacco UseTypesPacks/DayYears UsedDateSmoking Tobacco: Never KruqzqnsW1962 Health LiteracyAnswerDate RecordedHow often do you need to have someone help you when you read instructions, pamphlets, or other written material from your doctor or pharmacy?Never03/25/2025Humiliation, Afraid, Rape, and Kick questionnaireAnswerDate RecordedWithin the last year, have you been afraid of your partner or ex-partner?No03/25/2025Within the last year, have you been humiliated or emotionally abused in other ways by your partner or ex-partner?No 03/25/2025Within the last year, have you been kicked, hit, slapped, or otherwise physically hurt by your partner or ex-partner?No03/25/2025Within the last year, have you been raped or forced to have any kind of sexual activity by your part ner or ex-partner?No03/25/2025Social Connection and Isolation PanelAnswerDate RecordedIn a typical week, how many times do you talk on the phone with family, friends, or neighbors?Twice a week03/25/2025How often do you get together with friends or relatives?Once a week03/25/2025How often do you attend sabianist or islam services?More than 4 times per year03/25/2025Do you belong to any clubs or organizations such as sabianist groups, unions, fraternal or athletic neris ups, or school groups?No03/25/2025How often do you attend meetings of the clubs or organizations you belong to?More than 4 times per year03/25/2025re you , , , , never , or living with a partner? Ntxhnges15/07/2025UDIT-CAnswerDate RecordedQ1: How often do you have a drink containing alcohol?Never03/25/2025Q2: How many drinks containing alcohol do you have on a typical day when you are drinking?Patient does not drink03/25/2025Q3: How often do you have six or more drinks on one occasion?Never03/25/2025Overall Financial Resource Strain (CARDIA)AnswerDate RecordedHow hard is it for you to pay for the very basics like food, housing, medical care, and heating?Hard 03/25/2025PHQ-2AnswerDate RecordedPatient Health Questionnaire-2 Score0 10/04/2023[facility] [place] of Occupational Health - Occupational Stress QuestionnaireAnswerDate [...] steady place to sleep or slept in [place] (including now)?No09/27/2023Housing Stability Vital SignAnswerDate RecordedIn the last 12 months, was there a time when you were not able to pay the mortgage or rent on time?No03/25/2025In the past 12 months, how many times have you moved where you were living?t any time in the past 12 months, were you homeless or living in a assisted (including now)?No 03/25/2025CommentsUnknownSex and Gender InformationValueDate RecordedSex Assigned at BirthNot on fileLegal WgzMxejgy69/15/2023 10:09 PM EDTGender IdentityNot on fileSexual OrientationNot on filedocumented as of this encounter Functional Status * AUDIT-C ScoreAnswerDate of BjsaizfjsvJyjrqz392/07/2025 11:35 AM Lety Generic * Q1: How often do you have a drink containing alcohol?AnswerDate of Assessment BrdtpgYoemk94/07/2025 11:35 AM Lety Generic * Q2: How many drinks containing alcohol do you have on a typical day when you are drinking?AnswerDate of AssessmentAuthorPatient does not drink03/25/2025 11:35 AM Lety Generic * Q3: How often do you have six or more drinks on one occasion?AnswerDate of MwlefvbgizVbypblOnswa85/07/2025 11:35 AM Lety Generic * Over the past 2 weeks, how often have you been bothered by any of the following problems?QuestionAnswerDate of AssessmentAuthorLittle interest or pleasure in doing thingsNot at all10/04/2023 3:27 PM Libia Cristobal MA Feeling down, depressed, or hopelessNot at all10/04/2023 3:27 PM Libia Cristobal MAPatient Health Questionnaire-2 Destg710 3:27 PM Libia Cristobal MA documented as of this encounter Plan of Treatment Not on file documented as of this encounter Procedures Procedure NamePriorityDate/TimeAssociated DiagnosisCommentsUS RENAL BI09/22/2023 7:29 PM EST documented in this encounter Results * US RENAL BI (09/22/2023 7:29 PM EST)Anatomical RegionLateralityModalityOther Specimen (Source)Anatomical Location / LateralityCollection Method / Volume Collection TimeReceived Time09/22/2023 7:29 PM EST Narrative 09/22/2023 7:31 PM EST The [facility] ?[address] ? [place] [address] ? Ultrasound Report ? Signed ? Patient: ASAM,LUL M ? MR#: [id number] ?? : 1985 ?Acct:[id number] ?? Age/Sex: 38 / F ?ADM Date: 09/22/23 ?? Loc: US ? Attending Dr: Charlotte YEE ? Ordering Physician: Charlotte Scales ?? Date of Service: 09/22/23 ?? Procedure(s): US renal BI ?? Accession Number(s): [id number] ? cc: Kirby Delong M.D.; Charlotte Scales ? [facility] ? [address] ? [place] [address] ? Patient Name: ?? LUL BRITTON ? MRN: TB:[id number] ? date: 1985 ?Sex: F ?? Assigned Patient Location: US ?? Current Patient Location: US ?? Accession/Order Number: [id number] ?? Exam Date: 09/22/2023 ??18:00 ?Report Date: 09/22/2023 ??19:29 ? At the request of: ?? CHARLOTTE SCALES ? Procedure: ??US renal BI ? EXAM: US renal BI ? HISTORY: N20.0 KIDNEY STONE ? COMPARISON: None available. ? TECHNIQUE: Ultrasound examination of the kidneys and urinary bladder was ?? performed. ? FINDINGS: ? RIGHT: The right kidney is normal in size. Right kidney measures 11.6 cm in ?? length. Slight cortical thinning, cortex measures 8 mm in thickness. There is ?? no significant hydronephrosis. Multiple echogenic foci with twinkle artifact ?? suggesting nonobstructing kidney stones, largest measuring 10 mm in the right ?? mid kidney. No focal renal mass. 2.7 x 1.9 x 2.4 cm right mid kidney ?? parapelvic ?? cyst versus right pelviectasis. ? LEFT: The left kidney is normal in size. Left kidney measures 11.7 cm in ?? length. No significant cortical thinning. There is no hydronephrosis. Multiple ? echogenic foci with twinkle artifact suggesting nonobstructing kidney stones, ?? largest measuring 5 mm. No focal renal mass. 0.8 x 0.9 x 1.3 cm left upper ?? pole ?? kidney cyst. ? BLADDER: Unremarkable. No bladder stones seen. No right UVJ stone visualized ?? by ?? renewal specialist. ? US/US renal BI ?? IMPRESSION: ? 1. Multiple nonobstructing bilateral kidney stones measuring up to 10 mm on ?? the ?? right and 5 mm on the left. ?? 2. Head Operator Sulfide did not comment about hydronephrosis. 2.7 cm right mid kidney ?? parapelvic cyst versus right pelviectasis. No significant right calyceal ?? dilatation. No left hydronephrosis. ?? 3. 1.3 cm left upper pole kidney cyst. ?? 4. Slight right kidney cortical thinning. ? Electronically authenticated by: RUKHSANA ??RAIN ?? Date: 09/22/2023 ??19:29 ? Dictated By: ?Rukhsana Tovar M.D. ? Signed By: ?09/22/23 1931 ? DD/ 1929 ? TD/TT: ? Service Now Developer: Procedure Note Radiology, Radiologist, MD - 09/22/[address] [address] Ultrasound Report Signed Patient: LUL BRITTON MMR#: [id number] : 1985Acct:[id number] Age/Sex: 38 / FADM Date: 09/22/23 Loc: US Attending Dr: Charlotte YEE Ordering Physician: Charlotte Scales Date of Service: 09/22/23 Procedure(s): US renal BI Accession Number(s): [id number] cc: Kirby Delong M.D.; Charlotte Scales [place] [id number] Patient Name: LUL BRITTON MRN: [facility]:[id number] date: 1985 Sex: F Assigned Patient Location: US Current Patient Location: US Accession/Order Number: [id number] Exam Date: 09/22/2023 18:00 Report Date: 09/22/2023 19:29 At the request of: CHARLOTTE SCALES Procedure: US renal BI EXAM: US renal BI HISTORY: N20.0 KIDNEY STONE COMPARISON: None available. TECHNIQUE: Ultrasound examination of the kidneys and urinary bladder was performed. FINDINGS: RIGHT: The right kidney is normal in size. Right kidney measures 11.6 cmin length. Slight cortical thinning, cortex measures 8 mm in thickness. Thereis no significant hydronephrosis. Multiple echogenic foci with twinkleartifact suggesting nonobstructing kidney stones, largest measuring 10 mm in theright mid kidney. No focal renal mass. 2.7 x 1.9 x 2.4 cm right mid kidney parapelvic cyst versus right pelviectasis. LEFT: The left kidney is normal in size. Left kidney measures 11.7 cm in length. No significant cortical thinning. There is no hydronephrosis.Multiple echogenic foci with twinkle artifact suggesting nonobstructing kidneystones, largest measuring 5 mm. No focal renal mass. 0.8 x 0.9 x 1.3 cm left upper pole kidney cyst. BLADDER: Unremarkable. No bladder stones seen. No right UVJ stonevisualized by renewal specialist. US/US renal BI IMPRESSION: 1. Multiple nonobstructing bilateral kidney stones measuring up to 10 mmon the right and 5 mm on the left. 2. Head Operator Sulfide did not comment about hydronephrosis. 2.7 cm right midkidney parapelvic cyst versus right pelviectasis. No significant right calyceal dilatation. No left hydronephrosis. 3. 1.3 cm left upper pole kidney cyst. 4. Slight right kidney cortical thinning. Electronically authenticated by: RUKHSANA TOVAR Date: 09/22/2023 19:29 Dictated By: Rukhsana Tovar M.D. Signed By:09/22/231930 DD/ 28 TD/TT: Service Now Developer: Authorizing ProviderResult TypeResult StatusGeneric External Data Provider CLINISYNC IMAGINGFinal Result documented in this encounter Visit Diagnoses Not on filedocumented in this encounter Care Teams Team MemberRelationshipSpecialtyStart DateEnd Date Kirby Delong MD PCP - GeneralFamily Medicine04/13/23 Mary Thayer MD [address] [place] [address] Family Medicine04/13/23documented as of this encounter
--- OUTSIDE RECORDS SUMMARY | 2025-07-29 08:59 | XMS_ITS | Encounter Summary ---
Author Organization [facility] Address [address] [place] [address] Care Team Providers Care Chef De Partie Name Role Phone Kirby Delong MD Primary Care Provider [phone] Mary Thayer MD Unavailable Encounter Details DateTypeDepartmentCare Team (Latest Contact Info)Qtfvyvrfvaq67/13/2024Clinisync Result Encounter [facility] External Department Unsolicited Provider, [...] relatives?Once a week03/25/2025How often do you attend samaritan or yazidi services?More than 4 times per year03/25/2025Do you belong to any clubs or organizations such as samaritan groups, unions, fraternal or athletic groups, or school groups?No03/25/2025How often do you attend meetings of the clubs or organizations you belong to?More than 4 times per year03/25/2025 Are you , , , , never , or living with a partner?Epknyrkj00/07/2025UDIT-CAnswerDate RecordedQ1: How often do you have a [...] medical care, and heating?Hard03/25/2025PHQ-2AnswerDate RecordedPatient Health Questionnaire-2 Acwos816F[facility]hr[facility] [place] of Occupational Health - Occupational Stress QuestionnaireAnswerDate [...] steady place to sleep or slept in usaf academyelter (including now)?No09/27/2023Housing Stability Vital SignAnswerDate RecordedIn the last 12 months, was there a time when you were not able to pay the mortgage or rent on time?No03/25/2025In the past 12 months, how many times have you moved where you were living?t any time in the past 12 months, were you homeless or living in a long term (including now)?No 03/25/2025CommentsUnknownSex and Gender InformationValueDate RecordedSex Assigned at BirthNot on fileLegal DcvOhujvr79/15/2023 10:09 PM EDTGender IdentityNot on fileSexual OrientationNot on filedocumented as of this encounter Functional Status * AUDIT-C ScoreAnswerDate of KolyuegpsbWefsyl109/07/2025 11:35 AM EDMichael, Generic * Q1: How often do you have a drink containing alcohol?AnswerDate of Assessment XcvzrgOkrit42/07/2025 11:35 AM Lety Generic * Q2: How many drinks containing alcohol do you have on a typical day when you are drinking?AnswerDate of AssessmentAuthorPatient does not drink03/25/2025 11:35 AM Lety, Generic * Q3: How often do you have six or more drinks on one occasion?AnswerDate of YfjpajgwjkBufmzbYpiuf61/07/2025 11:35 AM EDTMychart, Generic documented as of this encounter Plan of Treatment Not on file documented as of this encounter Procedures Procedure NamePriorityDate/TimeAssociated DiagnosisCommentsUS RENAL AND BLADDER 07/01/2024 9:11 AM EDT documented in this encounter Results * US RENAL AND BLADDER (07/01/2024 9:11 AM EDT)Anatomical RegionLaterality ModalityRadiographic ImagingSpecimen (Source)Anatomical Location / Laterality Collection Method / VolumeCollection TimeReceived Time07/01/2024 9:11 AM EDT Narrative 07/01/2024 9:13 AM EDT The [facility] ?[address] ? [place], [place] [address] ? Ultrasound Report ? Signed ? Patient: LUL BRITTON ? MR#: [id number] ?? : 1985 ?Acct:[id number] ?? Age/Sex: 38 / F ?ADM Date: 06/30/24 ?? Loc: US ? Attending Dr: Charlotte YEE ? Ordering Physician: Charlotte Scales ?? Date of Service: 06/30/24 ?? Procedure(s): US renal bladder ?? Accession Number(s): [id number] ? cc: Kirby Delong M.D.; Charlotte Scales ? [facility] ? [address] ? [place] [address] ? Patient Name: ?? LUL BRITTON ? MRN: [facility]:[id number] ? date: 1985 ?Sex: F ?? Assigned Patient Location: US ?? Current Patient Location: US ?? Accession/Order Number: [id number] ?? Exam Date: 06/30/2024 ??09:10 ?Report Date: 07/01/2024 ??09:11 ? At the request of: ?? CHARLOTTE SCALES ? Procedure: ??US renal bladder ? EXAMINATION: US renal bladder ? HISTORY: ABDOMINAL PAIN R10.9 ? COMPARISON: No relevant comparison available. ? TECHNIQUE: Ultrasound examination was performed of the kidneys and urinary ?? bladder. ? FINDINGS: ? RIGHT KIDNEY: Isoechoic area within mid body/superior pole, 2.8 x 1.9 x 2.5 ?? cm; ?? prominent cortical parenchymal is favored over a mass. Several slightly ?? hyperechoic foci, possibly representing stones. Normal parenchymal ?? echogenicity. Color Doppler demonstrates blood flow within the kidney. Kidney: ? 10.8 x 4.5 x 3.6 cm ? LEFT KIDNEY: Contains a 1.1 cm benign-appearing cyst. Several slightly ?? hyperechoic foci, possibly representing stones. Normal parenchymal ?? echogenicity. Color Doppler demonstrates blood flow within the kidney. Kidney: ? 12.4 x 4.7 x 4.9 cm ? BLADDER: No visible wall thickening, mass, or calculi. Post void residual: 0 ?? mL ? URETERAL JETS: Visualized bilaterally. ? US/US renal bladder ?? IMPRESSION: ? 1. Prominent cortical parenchymal within the right kidney versus mass. I ?? suspect this represents artifact and represents slightly prominent parenchyma. ? However, consider CT imaging of the kidneys without and with IV contrast for ?? further evaluation. ?? 2. Several small slightly hyperechoic foci within the kidneys which may ?? represent nonobstructing stones. No visible stones on the abdominal radiograph ? obtained on the same day. This could also be evaluated during CT imaging. ? Electronically authenticated by: CHELY ??THUY ?? Date: 07/01/2024 ??09:11 ? Dictated By: ?Chely Garcia M.D. ? Signed By: ?07/01/2413 ? DD/ ? TD/TT: ? Dairy Helper: Procedure Note Radiology, Radiologist, - 07/01/2024 [place] [address] Ultrasound Report Signed Patient: LUL BRITTON MMR#: [id number] : 1985Acct:[id number] Age/Sex: 38 / FADM Date: 06/30/24 Loc: US Attending Dr: Charlotte YEE Ordering Physician: Charlotte Scales Date of Service: 06/30/24 Procedure(s): US renal bladder Accession Number(s): [id number] cc: Kirby Delong M.D.; Charlotte Scales The [address] [address] Patient Name: LUL BRITTON MRN: [facility]:[id number] date: 1985 Sex: F Assigned Patient Location: US Current Patient Location: US Accession/Order Number: [id number] Exam Date: 06/30/2024 09:10 Report Date: 07/01/2024 09:11 At the request of: CHARLOTTE SCALES Procedure: US renal bladder EXAMINATION: US renal bladder HISTORY: ABDOMINAL PAIN R10.9 COMPARISON: No relevant comparison available. TECHNIQUE: Ultrasound examination was performed of the kidneys and urinary bladder. FINDINGS: RIGHT KIDNEY: Isoechoic area within mid body/superior pole, 2.8 x 1.9 x2.5 cm; prominent cortical parenchymal is favored over a mass. Several slightly hyperechoic foci, possibly representing stones. Normal parenchymal echogenicity. Color Doppler demonstrates blood flow within the kidney.Kidney: 10.8 x 4.5 x 3.6 cm LEFT KIDNEY: Contains a 1.1 cm benign-appearing cyst. Several slightly hyperechoic foci, possibly representing stones. Normal parenchymal echogenicity. Color Doppler demonstrates blood flow within the kidney.Kidney: 12.4 x 4.7 x 4.9 cm BLADDER: No visible wall thickening, mass, or calculi. Post void residual:0 mL URETERAL JETS: Visualized bilaterally. US/US renal bladder IMPRESSION: 1. Prominent cortical parenchymal within the right kidney versus mass. I suspect this represents artifact and represents slightly prominentparenchyma. However, consider CT imaging of the kidneys without and with IV contrastfor further evaluation. 2. Several small slightly hyperechoic foci within the kidneys which may represent nonobstructing stones. No visible stones on the abdominalradiograph obtained on the same day. This could also be evaluated during CT imaging. Electronically authenticated by: CHELY GARCIA Date: 07/01/2024 09:11 Dictated By: Chely Garcia M.D. Signed By:07/01/24912 DD/ 0 TD/TT: Dairy Helper: Authorizing ProviderResult TypeResult StatusGeneric External Data ProviderIMG XR PROCEDURESFinal Result documented in this encounter Visit Diagnoses Not on filedocumented in this encounter Care Teams Team MemberRelationshipSpecialtyStart DateEnd Date Kirby Delong MD PCP - GeneralFamily Medicine04/13/23 Mary Thayer MD [address] [place] [address] Family Medicine04/13/23documented as of this encounter
--- OUTSIDE RECORDS SUMMARY | 2025-07-29 08:59 | XMS_ITS | Encounter Summary ---
Author Organization [facility] Address [address] [place] [address] Care Team Providers Care Sewer Digger Name Role Phone Kirby Delong MD Primary Care Provider [phone] Mary Thayer MD Unavailable Encounter Details DateTypeDepartmentCare Team (Latest Contact Info)Xvvxqoeevnv54/01/2024Clinisync Result Encounter [facility] External Department Unsolicited Provider, [...] relatives?Once a week03/25/2025How often do you attend quaker or tenriism services?More than 4 times per year03/25/2025Do you belong to any clubs or organizations such as quaker groups, unions, fraternal or athletic groups, or school groups?No03/25/2025How often do you attend meetings of the clubs or organizations you belong to?More than 4 times per year03/25/2025 Are you , , , , never , or living with a partner?Jbrsvdus35/07/2025UDIT-CAnswerDate RecordedQ1: How often do you have a [...] medical care, and heating?Hard03/25/2025PHQ-2AnswerDate RecordedPatient Health Questionnaire-2 Vqind328Finf[facility] [place] of Occupational Health - Occupational Stress QuestionnaireAnswerDate [...] steady place to sleep or slept in poundelter (including now)?No09/27/2023Housing Stability Vital SignAnswerDate RecordedIn the last 12 months, was there a time when you were not able to pay the mortgage or rent on time?No03/25/2025In the past 12 months, how many times have you moved where you were living?t any time in the past 12 months, were you homeless or living in a correction (including now)?No 03/25/2025CommentsUnknownSex and Gender InformationValueDate RecordedSex Assigned at BirthNot on fileLegal JxvUkuzso29/15/2023 10:09 PM EDTGender IdentityNot on fileSexual OrientationNot on filedocumented as of this encounter Functional Status * AUDIT-C ScoreAnswerDate of GtfdeuetujQxvetl490/07/2025 11:35 AM EDMichael, Generic * Q1: How often do you have a drink containing alcohol?AnswerDate of Assessment JbftmbUxbmr14/07/2025 11:35 AM Lety Generic * Q2: How many drinks containing alcohol do you have on a typical day when you are drinking?AnswerDate of AssessmentAuthorPatient does not drink03/25/2025 11:35 AM Lety, Generic * Q3: How often do you have six or more drinks on one occasion?AnswerDate of YpykjxuyuySowdkeOrhnc18/07/2025 11:35 AM EDTMychart, Generic documented as of this encounter Plan of Treatment Not on file documented as of this encounter Procedures Procedure NamePriorityDate/TimeAssociated DiagnosisCommentsXR SACROILIAC JOINT 07/20/2024 7:06 AM EDT documented in this encounter Results * XR SACROILIAC JOINT (07/20/2024 7:06 AM EDT)Anatomical RegionLaterality ModalityRadiographic ImagingSpecimen (Source)Anatomical Location / Laterality Collection Method / VolumeCollection TimeReceived Time07/20/2024 7:06 AM EDT Narrative 07/20/2024 7:09 AM EDT [facility] ?[address] ? [place] [address] ?XRay Report ? Signed ? Patient: LUL BRITTON M ? MR#: [id number] ?? : 1985 ?Acct:[id number] ?? Age/Sex: 39 / F ?ADM Date: 07/19/24 ?? Loc: RAD ? Attending Dr: Edgar Rodriguez NP ? Ordering Physician: Edgar Rodriguez NP ?? Date of Service: 07/19/24 ?? Procedure(s): XR sacroiliac joint MARKEL ?? Accession Number(s): [id number] ? cc: Edgar Rodriguez NP; Kirby Delong M.D. ? [facility] ? [address] ? [place] [address] ? Patient Name: ?? LUL BRITTON ? MRN: [facility]:[id number] ? date: 1985 ?Sex: F ?? Assigned Patient Location: RAD ?? Current Patient Location: ? Accession/Order Number: [id number] ?? Exam Date: 07/19/2024 ??15:45 ?Report Date: 07/20/2024 ??07:06 ? At the request of: ?? EDGAR ??JENNIFER ? Procedure: ??XR sacroiliac joint MARKEL ? PROCEDURE: XR sacroiliac joint MARKEL ? COMPARISON: None. ? HISTORY: Sacroiliitis, Chronic Low Back Pain ? FINDINGS: ?? BONES:No fracture, acute abnormality, or significant arthropathy. ?? SOFT TISSUES:Negative. No visible soft tissue swelling. ?? EFFUSION:None visible. ?? Sacroiliac joints: Negative. ? XR/XR sacroiliac joint MARKEL ?? IMPRESSION: ? No radiographic abnormality ? Electronically authenticated by: RIC ??PILAR ?? Date: 07/20/2024 ??07:06 ? Dictated By: ?Ric Quezada M.D. ? Signed By: ?07/20/24708 ? DD/ 5 ? TD/TT: ? Wrinkle Chaser: Procedure Note Radiology, Radiologist, - 07/20/2024 [place] [address] XRay Report Signed Patient: LUL BRITTON MMR#: [id number] : 1985Acct:[id number] Age/Sex: 39 / FADM Date: 07/19/24 Loc: [facility] Attending Dr: Edgar Rodriguez NP Ordering Physician: Edgar Rodriguez NP Date of Service: 07/19/24 Procedure(s): XR sacroiliac joint MARKEL Accession Number(s): [id number] cc: Edgar Rodriguez NP; Kirby Delong M.D. The [place] [address] Patient Name: LUL BRITTON MRN: [facility]:[id number] date: 1985 Sex: F Assigned Patient Location: [facility] Current Patient Location: Accession/Order Number: [id number] Exam Date: 07/19/2024 15:45 Report Date: 07/20/2024 07:06 At the request of: EDGAR RODRIGUEZ Procedure: XR sacroiliac joint MARKEL PROCEDURE: XR sacroiliac joint MARKEL COMPARISON: None. HISTORY: Sacroiliitis, Chronic Low Back Pain FINDINGS: BONES:No fracture, acute abnormality, or significant arthropathy. SOFT TISSUES:Negative. No visible soft tissue swelling. EFFUSION:None visible. Sacroiliac joints: Negative. XR/XR sacroiliac joint MARKEL IMPRESSION: No radiographic abnormality Electronically authenticated by: RIC QUEZADA Date: 07/20/2024 07:06 Dictated By: Ric Quezada M.D. Signed By:07/20/24708 DD/ 5 TD/TT: Wrinkle Chaser: Authorizing ProviderResult TypeResult StatusGeneric External Data ProviderIMG XR PROCEDURESFinal Result documented in this encounter Visit Diagnoses Not on filedocumented in this encounter Care Teams Team MemberRelationshipSpecialtyStart DateEnd Date Kirby Delong MD PCP - GeneralFamily Medicine04/13/23 Mary Thayer MD [address] [place] [address] Family Medicine04/13/23documented as of this encounter
--- OUTSIDE RECORDS SUMMARY | 2025-07-29 08:59 | XMS_ITS | Clinical Summary ---
Author Organization [facility] Address [address] [place] [address] Care Team Providers Care Conference Reservationist Name Role Phone Kirby Delong MD Primary Care Provider [phone] Mary Thayer MD Unavailable Allergies Active AllergyReactionsCriticalityNoted DateCommentsPenicillinsHives,RashLow 09/29/2023 Medications MedicationSigDispense QuantityRefillsLast FilledStart DateEnd DateStatus tkkwmrgomr-ehsbpzwreewjm-ttbgpxca 50-325-40 MG tablet Indications:Chronic migraine without aura without status migrainosus, not intractableTake 1 tablet by mouth 4 (four) times a day as needed for headaches 60 tablet 4Active cetirizine-pseudoephedrine (ZyrTEC-D) 5-120 MG 12 hr tablet Indications:Chronic pansinusitisTake 1 tablet by mouth in the morning and 1 tablet before bedtime. 60 tablet 4Active baclofen (Lioresal) 10 MG tablet Take by mouth 3 (three) times a dayActive cholecalciferol (Vitamin D-3) 50 MCG (1999) tablet Indications:Vitamin D deficiency, unspecifiedTAKE 1 TABLET BY MOUTH DAILY 90 tablet 4Active PARoxetine (Paxil) 30 MG tablet Indications:Generalized anxiety disorderTAKE 1 TABLET BY MOUTH ONCE DAILY IN THE MORNING 30 tablet 5Active etodolac (Lodine) 400 MG tablet Indications:Thoracic spondyloarthritisTAKE 1 TABLET BY MOUTH TWICE DAILY NEEDED FOR PAIN 60 tablet 5Active hydroCHLOROthiazide (HYDRODiuril) 12.5 MG tablet Take 12.5 mg by mouth DailyActive furosemide (Lasix) 40 MG tablet Indications:Bilateral leg edemaTake 1 tablet (40 mg) by mouth Daily as needed (Edema) 30 tablet 505Active traZODone (Desyrel) 50 MG tablet Indications:Insomnia due to mental conditionTake 1 tablet (50 mg) by mouth at bedtime 30 tablet 5Active amphetamine-dextroamphetamine XR (Adderall XR) 20 MG 24 hr capsule Indications:Obstructive sleep apnea (adult) (pediatric)Take 2 capsules (40 mg) by mouth in the morning. Do not crush or chew. 60 capsule 5Active Active Problems ProblemNoted DateDiagnosed DateInsomnia due to mental eapgtcsnr82/08/2025 Assessment & Plan (03/26/2025 3:21 PM EDT): Not sleeping well and try restoril. Sleep apnea with jsjdstkwcpuyffy57/30/2024 Assessment & Plan (03/26/2025 3:21 PM EDT): Fatigue improved with medication and continue adderall. Assessment & Plan (09/25/2024 4:05 PM EST): Fatigue improved with medication and continue adderall. Chronic drvluagktdso01/29/2024hronic kekvozdxlxbzub89/02/2024 Assessment & Plan (12/20/2023 3:23 PM EDT): Chronic congestion and nose always plugged. No response to OTC and refer to ENT for evaluation. Cervical /16/2024Migraine without aura and without status migrainosus, not pzbjsqcahum35/16/2024 Assessment & Plan (03/26/2025 3:21 PM EDT): GALLO stable and use fioricet PRN. Assessment & Plan (09/25/2024 4:05 PM EST): GALLO stable and continue elavil. Use fioricet PRN. Assessment & Plan (06/05/2024 3:30 PM EDT): GALLO stable and continue elavil. Use fioricet PRN. Assessment & Plan (03/26/2024 5:07 PM EDT): GALLO stable and continue elavil. Use fioricet PRN. Assessment & Plan (12/20/2023 3:24 PM EDT): GALLO stable and continue elavil. Use fioricet PRN. Assessment & Plan (10/04/2023 3:43 PM EST): GALLO stable but recent kidney stones and stop topamax. Start elavil to help reduce GALLO. Use fioricet PRN. Class 3 severe obesity due to excess calories with serious comorbidity and body mass index (BMI) of45.0 to 49.9 in adult10/04/2023 Assessment & Plan (09/25/2024 4:06 PM EST): Discussed proper diet and regular aerobic exercise. Recommend Weight Watchers and need to limit calories and smaller portions. Need to increase activity and regular aerobic exercise several days a week for 30 minutes at a time. Assessment & Plan (12/20/2023 3:25 PM EDT): Discussed proper diet and regular aerobic exercise. Recommend Weight Watchers and need to limit calories and smaller portions. Need to increase activity and regular aerobic exercise several days a week for 30 minutes at a time. Personal history of urinary rgtogqq7209/29/2023 Assessment & Plan (10/04/2023 3:44 PM EST): Recent stone and stop topamax. Follow up with urology. Vitamin D deficiency lrpcdqf3809/29/2023Family history of breast cancer in mother 09/29/2023ight flank pain09/29/2023Thoracic ocgpvpfvpkiamyatf21/11/2024 Assessment & Plan (06/05/2024 3:30 PM EDT): Recent injection and follow with pain management. Assessment & Plan (10/04/2023 3:44 PM EST): Pain unchanged and follow up with pain management. Generalized anxiety ckcmxahx55/11/2024 Assessment & Plan (03/26/2025 3:21 PM EDT): Symptoms controlled with paxil and continue. Assessment & Plan (09/25/2024 4:05 PM EST): Symptoms controlled with paxil and continue. Assessment & Plan (06/05/2024 3:29 PM EDT): Symptoms controlled with paxil and continue. Assessment & Plan (03/26/2024 5:07 PM EDT): Symptoms controlled with paxil and continue. Assessment & Plan (12/20/2023 3:24 PM EDT): Symptoms controlled with paxil and continue. Assessment & Plan (10/04/2023 3:43 PM EST): Symptoms controlled with paxil and continue. Bilateral leg edema09/29/2023 Assessment & Plan (03/26/2025 3:20 PM EDT): Edema controlled with medication and continue. Elevate legs PRN. Assessment & Plan (09/25/2024 4:05 PM EST): Edema controlled with medication and continue. Elevate legs PRN. Assessment & Plan (06/05/2024 3:29 PM EDT): Edema controlled with medication and continue. Elevate legs PRN. Assessment & Plan (03/26/2024 5:07 PM EDT): Edema controlled with medication and continue. Elevate legs PRN. Assessment & Plan (12/20/2023 3:23 PM EDT): Edema controlled with medication and continue. Elevate legs PRN. Assessment & Plan (10/04/2023 3:42 PM EST): Edema controlled with medication and continue. Elevate legs PRN. Resolved Problems ProblemNoted DateDiagnosed DateResolved DateAcute bronchitis due to other specified gkiedtlpq65 Assessment & Plan (07/05/2024 12:01 PM EDT): Take antibiotics for 7 days. Use prednisone for inflammation. Use sudafed or other decongestants asneeded. Use Robitussin or Robitussin-DM for cough. Can use afrin for congestion but no longer than 3 days. Can use Mucinex to bring up phlegm. Use Motrin or Tylenol as needed for fever, aches, or pains. Increase fluid intake and rest. Should improve over next 5-7 days and if no better or worse callfor re-evaluation. Obstructive sleep apnea (adult) (pediatric) Assessment & Plan (09/25/2024 4:05 PM EST): Fatigue improved with medication and continue adderall. Assessment & Plan (06/05/2024 3:30 PM EDT): Fatigue improved with medication and continue adderall. Assessment & Plan (03/26/2024 5:07 PM EDT): Fatigue improved with medication change but still present and increase adderall. Assessment & Plan (12/20/2023 3:24 PM EDT): Fatigue recently worse and increase adderall. Assessment & Plan (10/04/2023 3:43 PM EST): Fatigue improved with adderall and continue. Immunizations ImmunizationAdministration DatesNext DueDTaP, Byrqtyohlay46/22/1999Hep B, Adolescent or Yccvtmmnl77/07/2006,12/20/2005,11/15/2005MMR03/10/1999Tdap 05/11/20107491Yzhduzqbq50/24/2007,12/07/2006 Family History Medical HistoryRelationNameCommentsArthritisMaternal GrandmotherJanet Eric CancerMaternal GrandmotherJanet FillmoreCancerMotherWendy westCancerPaternal GrandmotherSharon westDiabetesPaternal GrandmotherSharon westHypertension Paternal GrandmotherSharon westKidney diseasePaternal GrandmotherSharon west AsthmaSonJase lehstenRelationNameStatusCommentsFatherAliveMaternal Grandmother Luz BlandonWendfreddie westAlivePaternal GrandmotherSharon westSonJase lehsten Social History Tobacco UseTypesPacks/DayYears UsedDateSmoking Tobacco: FormerCigarettes0.33 Smokeless Tobacco: Never Tobacco Cessation:Counseling Given: Not Answered Comments:Vape Alcohol UseStandard Drinks/WeekCommentsNever0 (1 standard drink [...] relatives?Once a week03/25/2025How often do you attend worship or sabianist services?More than 4 times per year03/25/2025Do you belong to any clubs or organizations such as worship groups, unions, fraternal or athletic groups, or school groups?No03/25/2025How often do you attend meetings of the clubs or organizations you belong to?More than 4 times per year03/25/2025 Are you , , , , never , or living with a partner?Auszjqvx23/07/2025UDIT-CAnswerDate RecordedQ1: How often do you have a [...] medical care, and heating?Hard03/25/2025PHQ-2AnswerDate RecordedPatient Health Questionnaire-2 Otiid742Finbrigham [facility] [place] of Occupational Health - Occupational Stress QuestionnaireAnswerDate [...] steady place to sleep or slept in ashelter (including now)?No09/27/2023Housing Stability Vital SignAnswerDate RecordedIn the last 12 months, was there a time when you were not able to pay the mortgage or rent on time?No03/25/2025In the past 12 months, how many times have you moved where you were living?t any time in the past 12 months, were you homeless or living in a snf (including now)?No 03/25/2025CommentsUnknownSex and Gender InformationValueDate RecordedSex Assigned at BirthNot on fileLegal UviRhjznu76/15/2023 10:09 PM EDTGender IdentityNot on fileSexual OrientationNot on file Last Filed Vital Signs Vital SignReadingTime TakenCommentsBlood Gsjbjbjq583/6807 2:42 PM EDT Efvcr96944/08/2025 2:42 PM JPJLmezoloufgs00.2 ??C (97.1 ??F)03/26/2025 2:42 PM EDTRespiratory Nlqc561003/26/2025 2:42 PM EDTOxygen Eoxkkjxnyk18%03/26/2025 2:42 PM EDTInhaled Oxygen Concentration--Eevrvu08.3 kg (219 lb)03/26/2025 2:42 PM EDT Wehvqo158.4 cm (5')03/26/2025 2:42 PM EDTBody Mass Index42.77003/26/2025 2:42 PM EDT Plan of Treatment Not on file Insurance * Guarantor: Lul Gurrola TypeRelation to PatientDate of BirthPhone Billing AddressWorkers HkkeAjsk1985 [address] [place], [place] Care Teams Team MemberRelationshipSpecialtyStart DateEnd Date Kirby Delong MD PCP - GeneralFamily Medicine04/13/23 Mary Thayer MD [address] [place] [address] Family Medicine04/13/23
--- OUTSIDE RECORDS SUMMARY | 2025-07-29 08:59 | XMS_ITS | Encounter Summary ---
Author Organization [facility] Address [address] [place] [address] Care Team Providers Care Facing Baster Jumpbasting Name Role Phone Kirby Delong MD Primary Care Provider [phone] Mary Thayer MD Unavailable Encounter Details DateTypeDepartmentCare Team (Latest Contact Info)Gyvihyjtpor09/01/2024Clinisync Result Encounter [facility] External Department Unsolicited Provider, [...] relatives?Once a week03/25/2025How often do you attend advent or mormon services?More than 4 times per year03/25/2025Do you belong to any clubs or organizations such as advent groups, unions, fraternal or athletic groups, or school groups?No03/25/2025How often do you attend meetings of the clubs or organizations you belong to?More than 4 times per year03/25/2025 Are you , , , , never , or living with a partner?Zoqolwlh85/07/2025UDIT-CAnswerDate RecordedQ1: How often do you have a [...] medical care, and heating?Hard03/25/2025PHQ-2AnswerDate RecordedPatient Health Questionnaire-2 Cbwwn032Fin[facility] [place] of Occupational Health - Occupational Stress QuestionnaireAnswerDate [...] steady place to sleep or slept in tensedelter (including now)?No09/27/2023Housing Stability Vital SignAnswerDate RecordedIn the [...] InformationValueDate RecordedSex Assigned at BirthNot on fileLegal VeqNdhrmu91/15/2023 10:09 PM EDTGender IdentityNot on fileSexual OrientationNot on filedocumented as of this encounter Functional Status * AUDIT-C ScoreAnswerDate of HzbnlspvrtQqabio979/07/2025 11:35 AM EDMichael, Generic * Q1: How often do you have a drink containing alcohol?AnswerDate of Assessment AwsumsJvioh39/07/2025 11:35 AM Lety Generic * Q2: How many drinks containing alcohol do you have on a typical day when you are drinking?AnswerDate of AssessmentAuthorPatient does not drink03/25/2025 11:35 AM Lety, Generic * Q3: How often do you have six or more drinks on one occasion?AnswerDate of OpcltueftsMurlycWppof05/07/2025 11:35 AM EDTMychart, Generic documented as of this encounter Plan of Treatment Not on file documented as of this encounter Procedures Procedure NamePriorityDate/TimeAssociated DiagnosisCommentsXR LUMBAR SPINE MIN 4V109/19/2023 7:09 AM EDT documented in this encounter Results * XR LUMBAR SPINE MIN 4V (07/20/2024 7:09 AM EDT)Anatomical RegionLaterality ModalityOtherSpecimen (Source)Anatomical Location / LateralityCollection Method / VolumeCollection TimeReceived Time07/20/2024 7:09 AM EDT Narrative 07/20/2024 7:11 AM EDT [facility] ?[address] ? [place] [address] ?XRay Report ? Signed ? Patient: WALLYKristelLUL Humphries ? MR#: [id number] ?? : 1985 ?Acct:[id number] ?? Age/Sex: 39 / F ?ADM Date: 07/19/24 ?? Loc: RAD ? Attending Dr: Edgar Rodriguez ORACLE ERP DEVELOPER ? Ordering Physician: Edgar Rodriguez NP ?? Date of Service: 07/19/24 ?? Procedure(s): XR lumbar spine min 4V ?? Accession Number(s): [id number] ? cc: Egdar Rodriguez NP; Kirby Delong M.D. ? [facility] ? [address] [place] [address] ? [place] [address] ? Patient Name: ?? LUL BRITTON ? MRN: [facility]:[id number] ? date: 1985 ?Sex: F ?? Assigned Patient Location: RAD ?? Current Patient Location: RAD ?? Accession/Order Number: [id number] ?? Exam Date: 07/19/2024 ??15:45 ?Report Date: 07/20/2024 ??07:09 ? At the request of: ?? EDGAR ??JENNIFER ? Procedure: ??XR lumbar spine min 4V ? EXAMINATION: XR lumbar spine min 4V ? HISTORY: Sacroiliitis, Chronic Low Back Pain ? COMPARISON: No relevant comparison available. ? FINDINGS: ?? BONES: Minimal spondylosis. No significant facet osteoarthropathy ?? DISC SPACES: Normal. No significant disc height narrowing, subluxation, or ?? endplate abnormality. ?? PARASPINOUS: Negative. No paraspinous abnormality is seen. ?? OTHER: Negative. ? XR/XR lumbar spine min 4V ?? IMPRESSION: ? Minimal spondylosis ? Electronically authenticated by: RIC ??PILAR ?? Date: 07/20/2024 ??07:09 ? Dictated By: ?Ric Quezada M.D. ? Signed By: ?07/20/24710 ? DD/ 8 ? TD/TT: ? Baby Sitter: Procedure Note Radiology, Radiologist, - 07/20/2024 [place] [address] XRay Report Signed Patient: LUL BRITTON MMR#: [id number] : 1985Acct:[id number] Age/Sex: 39 / FADM Date: 07/19/24 Loc: EDY Attending Dr: Edgar Rodriguez NP Ordering Physician: Edgar Rodriguez NP Date of Service: 07/19/24 Procedure(s): XR lumbar spine min 4V Accession Number(s): [id number] cc: Edgar Rodriguez NP; Kirby Delong M.D. The [place] [address] Patient Name: LUL BRITTON MRN: [facility]:[id number] date: 1985 Sex: F Assigned Patient Location: [facility] Current Patient Location: [facility] Accession/Order Number: [id number] Exam Date: 07/19/2024 15:45 Report Date: 07/20/2024 07:09 At the request of: EDGAR RODRIGUEZ Procedure: XR lumbar spine min 4V EXAMINATION: XR lumbar spine min 4V HISTORY: Sacroiliitis, Chronic Low Back Pain COMPARISON: No relevant comparison available. FINDINGS: BONES: Minimal spondylosis. No significant facet osteoarthropathy DISC SPACES: Normal. No significant disc height narrowing, subluxation, or endplate abnormality. PARASPINOUS: Negative. No paraspinous abnormality is seen. OTHER: Negative. XR/XR lumbar spine min 4V IMPRESSION: Minimal spondylosis Electronically authenticated by: RIC QUEZADA Date: 07/20/2024 07:09 Dictated By: Ric Quezada M.D. Signed By:07/20/24710 DD/ 8 TD/TT: Baby Sitter: Authorizing ProviderResult TypeResult StatusGeneric External Data Provider CLINISYNC IMAGINGFinal Result documented in this encounter Visit Diagnoses Not on filedocumented in this encounter Care Teams Team MemberRelationshipSpecialtyStart DateEnd Date Kirby Delong MD PCP - GeneralFasdly Medicine04/13/23 Mary Thayer MD [address] [place] [address] [facility]04/13/23documented as of this encounter
--- OUTSIDE RECORDS SUMMARY | 2025-07-29 08:59 | XMS_ITS | Clinical Summary ---
Author Organization [facility] Address [id number] [address] [place] [address] Care Team Providers Care Hand Ii Tube Bender Name Role Phone Kervin Martin MD Primary Care Provider [phone] Social History Tobacco UseTypesPacks/DayYears UsedDateSmoking Tobacco: Never AssessedChildcare AnswerDate PcqumewmPwuewlfwtDuujvrv80/12/2019EmploymentAnswerDate Recorded AioqbvbiscDsogrxf87/12/2019Purpose - LifeAnswerDate RecordedPurpose and direction in iwlqDqxambl35/11/2021CommentsUnknownSex and Gender InformationValueDate RecordedSex Assigned at BirthNot on fileLegal SexFemale 04/24/2015 12:08 PM EDTGender IdentityNot on fileSexual OrientationNot on file Plan of Treatment Not on file Medical Devices Not on file Insurance Care Teams Team MemberRelationshipSpecialtyStart DateEnd Date Kervin Martin MD [address] [address] PCP - GeneralInternal Medicine12/15/18
--- OUTSIDE RECORDS SUMMARY | 2025-07-29 08:59 | XMS_ITS | Encounter Summary ---
Author Organization [facility] Address [address] [place] [address] Care Team Providers Care Kinesiologist Name Role Phone Kirby Delong MD Primary Care Provider [phone] Mary Thayer MD Unavailable Encounter Details DateTypeDepartmentCare Team (Latest Contact Info)Dyizotamvkw14/01/2024Clinisync Result Encounter [facility] External Department Unsolicited Provider, [...] relatives?Once a week03/25/2025How often do you attend jehovah's witness or congregation services?More than 4 times per year03/25/2025Do you belong to any clubs or organizations such as jehovah's witness groups, unions, fraternal or athletic groups, or school groups?No03/25/2025How often do you attend meetings of the clubs or organizations you belong to?More than 4 times per year03/25/2025 Are you , , , , never , or living with a partner?Brbqjwnw58/07/2025UDIT-CAnswerDate RecordedQ1: How often do you have a [...] medical care, and heating?Hard03/25/2025PHQ-2AnswerDate RecordedPatient Health Questionnaire-2 Oofct560Fin[facility] [place] of Occupational Health - Occupational Stress QuestionnaireAnswerDate [...] steady place to sleep or slept in dawsonelter (including now)?No09/27/2023Housing Stability Vital SignAnswerDate RecordedIn the last 12 months, was there a time when you were not able to pay the mortgage or rent on time?No03/25/2025In the past 12 months, how many times have you moved where you were living?t any time in the past 12 months, were you homeless or living in a custodial (including now)?No 03/25/2025CommentsUnknownSex and Gender InformationValueDate RecordedSex Assigned at BirthNot on fileLegal UedCvgqng79/15/2023 10:09 PM EDTGender IdentityNot on fileSexual OrientationNot on filedocumented as of this encounter Functional Status * AUDIT-C ScoreAnswerDate of OibkhucamwIicyve941/07/2025 11:35 AM EDMichael, Generic * Q1: How often do you have a drink containing alcohol?AnswerDate of Assessment IeeuobIkyzf47/07/2025 11:35 AM Lety Generic * Q2: How many drinks containing alcohol do you have on a typical day when you are drinking?AnswerDate of AssessmentAuthorPatient does not drink03/25/2025 11:35 AM Lety, Generic * Q3: How often do you have six or more drinks on one occasion?AnswerDate of DqlqqxxzadRhmmlxBecvi75/07/2025 11:35 AM EDTMychart, Generic documented as of this encounter Plan of Treatment Not on file documented as of this encounter Procedures Procedure NamePriorityDate/TimeAssociated DiagnosisCommentsXR KNEE 4+ VIEWS QWNNAGTUI28/01/2024 7:07 AM EDT documented in this encounter Results * XR knee 4+ views bilateral (07/20/2024 7:07 AM EDT)Anatomical RegionLaterality ModalityLower Extremities, KneeBilateralRadiographic ImagingSpecimen (Source) Anatomical Location / LateralityCollection Method / VolumeCollection Time Received Time07/20/2024 7:07 AM EDT Narrative 07/20/2024 7:10 AM EDT [facility] ?[address] ? [place] [address] ?XRay Report ? Signed ? Patient: WALLYKristelLUL Humphries ? MR#: [id number] ?? : 1985 ?Acct:[id number] ?? Age/Sex: 39 / F ?ADM Date: 07/19/24 ?? Loc: RAD ? Attending Dr: Edgar Rodriguez HOTEL YARDPERSON ? Ordering Physician: Edgar Rodriguez NP ?? Date of Service: 07/19/24 ?? Procedure(s): XR knee MARKEL 4V ?? Accession Number(s): [id number] ? cc: Edgar Rodriguez NP; Kirby Delong M.D. ? [facility] ? [address] [place] [address] ? [place] [address] ? Patient Name: ?? LUL BRITTON ? MRN: [facility]:[id number] ? date: 1985 ?Sex: F ?? Assigned Patient Location: RAD ?? Current Patient Location: RAD ?? Accession/Order Number: [id number] ?? Exam Date: 07/19/2024 ??15:45 ?Report Date: 07/20/2024 ??07:07 ? At the request of: ?? EDGAR ??JENNIFER ? Procedure: ??XR knee MARKEL 4V ? EXAMINATION: XR knee MARKEL 4V ? HISTORY: Chronic Bilateral Knee Pain ? COMPARISON: No relevant comparison available. ? FINDINGS: ? RIGHT FINDINGS: ?? BONES: Normal. No significant arthropathy or acute abnormality. ?? SOFT TISSUES: Negative. No visible soft tissue swelling. ?? OTHER: Negative. ? LEFT FINDINGS: ?? BONES: Normal. No significant arthropathy or acute abnormality. ?? SOFT TISSUES: Negative. No visible soft tissue swelling. ?? OTHER: Negative. ? XR/XR knee MARKEL 4V ?? IMPRESSION: ? RIGHT CONCLUSION: Normal ?? LEFT CONCLUSION: Normal ? Electronically authenticated by: RIC ??PILAR ?? Date: 07/20/2024 ??07:07 ? Dictated By: ?Ric Quezada M.D. ? Signed By: ?07/20/ 0710 ? DD/ 0707 ? TD/TT: ? Lpn Private Duty: Procedure Note Radiology, Radiologist, - 07/20/2024 [place] [address] XRay Report Signed Patient: LUL BRITTON MMR#: [id number] : 1985Acct:[id number] Age/Sex: 39 / FADM Date: 07/19/24 Loc: EDY Attending Dr: Edgar Rodriguez NP Ordering Physician: Edgar Rodriguez NP Date of Service: 07/19/24 Procedure(s): XR knee MARKEL 4V Accession Number(s): [id number] cc: Edgar Rodriguez NP; Kirby Delong M.D. The [place] [address] Patient Name: LUL BRITTON MRN: [facility]:[id number] date: 1985 Sex: F Assigned Patient Location: [facility] Current Patient Location: [facility] Accession/Order Number: [id number] Exam Date: 07/19/2024 15:45 Report Date: 07/20/2024 07:07 At the request of: EDGAR RODRIGUEZ Procedure: XR knee MARKEL 4V EXAMINATION: XR knee MARKEL 4V HISTORY: Chronic Bilateral Knee Pain COMPARISON: No relevant comparison available. FINDINGS: RIGHT FINDINGS: BONES: Normal. No significant arthropathy or acute abnormality. SOFT TISSUES: Negative. No visible soft tissue swelling. OTHER: Negative. LEFT FINDINGS: BONES: Normal. No significant arthropathy or acute abnormality. SOFT TISSUES: Negative. No visible soft tissue swelling. OTHER: Negative. XR/XR knee MARKEL 4V IMPRESSION: RIGHT CONCLUSION: Normal LEFT CONCLUSION: Normal Electronically authenticated by: RIC QUEZADA Date: 07/20/2024 07:07 Dictated By: Ric Quezada M.D. Signed By:07/20/24709 DD/ 6 TD/TT: Lpn Private Duty: Authorizing ProviderResult TypeResult StatusGeneric External Data ProviderIMG XR PROCEDURESFinal Result documented in this encounter Visit Diagnoses Not on filedocumented in this encounter Care Teams Team MemberRelationshipSpecialtyStart DateEnd Date Kirby Delong MD PCP - GeneralFamily Medicine04/13/23 Mary Thayer MD [address] [place] [address] Family Medicine04/13/23documented as of this encounter
--- OUTSIDE RECORDS SUMMARY | 2025-07-29 09:00 | XMS_ITS | Encounter Summary ---
Author Organization [facility] Address [address] [place] [address] Care Team Providers Care Composite Boat Builder Name Role Phone Kirby Delong MD Primary Care Provider [phone] Mary Thayer MD Unavailable Encounter Details DateTypeDepartmentCare Team (Latest Contact Info)Oklrzupsjvb97/04/2024Clinisync Result Encounter [facility] External Department Unsolicited Provider, Generic External Data Social History Tobacco UseTypesPacks/DayYears UsedDateSmoking Tobacco: Never [id number] Health LiteracyAnswerDate RecordedHow often do you need [...] relatives?Once a week03/25/2025How often do you attend baptist or anabaptism services?More than 4 times per year03/25/2025Do you belong to any clubs or organizations such as baptist groups, unions, fraternal or athletic neris ups, or school groups?No03/25/2025How often do you attend meetings of the clubs or organizations you belong to?More than 4 times per year03/25/2025re you , , , , never , or living with a partner? Sddgpkgf68/07/2025UDIT-CAnswerDate RecordedQ1: How often do you have a [...] and heating?Hard 03/25/2025PHQ-2AnswerDate RecordedPatient Health Questionnaire-2 Score0 10/04/2023[facility] [place] [facility] Occup[facility] Health - Occupational Stress QuestionnaireAnswerDate [...] steady place to sleep or slept in [place] (including now)?No09/27/2023Housing Stability Vital SignAnswerDate RecordedIn the last 12 months, was there a time when you were not able to pay the mortgage or rent on time?No03/25/2025In the past 12 months, how many times have you moved where you were living?t any time in the past 12 months, were you homeless or living in a senior living (including now)?No 03/25/2025CommentsUnknownSex and Gender InformationValueDate RecordedSex Assigned at BirthNot on fileLegal JtnSgyqtz56/15/2023 10:09 PM EDTGender IdentityNot on fileSexual OrientationNot on filedocumented as of this encounter Functional Status * AUDIT-C ScoreAnswerDate of ZdeqmccpotBbpwwd113/07/2025 11:35 AM Lety Generic * Q1: How often do you have a drink containing alcohol?AnswerDate of Assessment ErbhuhMjbsw79/07/2025 11:35 AM Lety Generic * Q2: How many drinks containing alcohol do you have on a typical day when you are drinking?AnswerDate of AssessmentAuthorPatient does not drink03/25/2025 11:35 AM Lety Generic * Q3: How often do you have six or more drinks on one occasion?AnswerDate of KcbbepnqiaGsvvqzOkslr52/07/2025 11:35 AM Lety Generic * Over the past 2 weeks, how often have you been bothered by any of the following problems?QuestionAnswerDate of AssessmentAuthorLittle interest or pleasure in doing thingsNot at all10/04/2023 3:27 PM Libia Cristobal MA Feeling down, depressed, or hopelessNot at all10/04/2023 3:27 PM Libia Cristobal MAPatient Health Questionnaire-2 Jqqzx168 3:27 PM Libia Cristobal MA documented as of this encounter Plan of Treatment Not on file documented as of this encounter Procedures Procedure NamePriorityDate/TimeAssociated DiagnosisCommentsXR ABDOMEN 1V 09/22/2023 7:31 PM EST documented in this encounter Results * XR ABDOMEN 1V (09/22/2023 7:31 PM EST)Anatomical RegionLateralityModalityOther Specimen (Source)Anatomical Location / LateralityCollection Method / Volume Collection TimeReceived Time09/22/2023 7:31 PM EST Narrative 09/22/2023 7:34 PM EST [facility] ?[address] ? [place] [address] ?XRay Report ? Signed ? Patient: ASAM,LUL M ? MR#: [id number] ?? : 1985 ?Acct:[id number] ?? Age/Sex: 38 / F ?ADM Date: 09/22/23 ?? Loc: US ? Attending Dr: Charlotte YEE ? Ordering Physician: Charlotte Scales ?? Date of Service: 09/22/23 ?? Procedure(s): XR abdomen 1V ?? Accession Number(s): [id number] ? cc: Kirby Delong M.D.; Charlotte Scales ? [facility] ? [address] ? [place] [address] ? Patient Name: ?? LUL BRITTON ? MRN: [id number] ? date: 1985 ?Sex: F ?? Assigned Patient Location: US ?? Current Patient Location: US ?? Accession/Order Number: [id number] ?? Exam Date: 09/22/2023 ??17:14 ?Report Date: 09/22/2023 ??19:31 ? At the request of: ?? CHARLOTTE SCALES ? Procedure: ??XR abdomen 1V ? IMAGES REVIEWED: XR abdomen 1V ? COMPARISON: 10/02/2022. ? CLINICAL INDICATION: N20.0 KIDNEY STONE ? FINDINGS/IMPRESSION: ? On the prior x-ray from 10/02/2022 there was an approximately 7 mm calcific ?? density overlying expected location of the right kidney which is no longer ?? seen ?? on today's x-ray. ? On today's x-ray there is an approximately 7 mm calcific density overlying the ? right pelvis near the expected location of the right UVJ which was not seen on ? prior KUBs and raises concern for migration of previously seen right kidney ?? stone through the right distal ureter, now possibly situated in the right UVJ ?? region. This could be better delineated with CT if clinically indicated. ? Multiple bilateral nonobstructing kidney stones measuring up to 1 cm on the ?? right better seen on same-day ultrasound. ? Electronically authenticated by: RUKHSANA ??RAIN ?? Date: 09/22/2023 ??19:31 ? Dictated By: ?Rukhsana Tovar M.D. ? Signed By: ?09/22/231933 ? DD/ 1931 ? TD/TT: ? Special Shopper: Procedure Note Radiology, Radiologist, - 09/22/2023 [place] [address] XRay Report Signed Patient: LUL BRITTON MMR#: [id number] : 1985Acct:[id number] Age/Sex: 38 / FADM Date: 09/22/23 Loc: US Attending Dr: Charlotte YEE Ordering Physician: Charlotte Scales Date of Service: 09/22/23 Procedure(s): XR abdomen 1V Accession Number(s): [id number] cc: Kirby Delong M.D.; Charlotte Scales [place] [id number] Patient Name: LUL BRITTON MRN: [id number] date: 1985 Sex: F Assigned Patient Location: US Current Patient Location: [place] Accession/Order Number: [id number] Exam Date: 09/22/2023 17:14 Report Date: 09/22/2023 19:31 At the request of: CHARLOTTE SCALES Procedure: XR abdomen 1V IMAGES REVIEWED: XR abdomen 1V COMPARISON: 10/02/2022. CLINICAL INDICATION: N20.0 KIDNEY STONE FINDINGS/IMPRESSION: On the prior x-ray from 10/02/2022 there was an approximately 7 mm calcific density overlying expected location of the right kidney which is no longer seen on today's x-ray. On today's x-ray there is an approximately 7 mm calcific density overlyingthe right pelvis near the expected location of the right UVJ which was notseen on prior KUBs and raises concern for migration of previously seen rightkidney stone through the right distal ureter, now possibly situated in the rightUVJ region. This could be better delineated with CT if clinically indicated. Multiple bilateral nonobstructing kidney stones measuring up to 1 cm onthe right better seen on same-day ultrasound. Electronically authenticated by: RUKHSANA TOVAR Date: 09/22/2023 19:31 Dictated By: Rukhsana Tovar M.D. Signed By:09/22/231933 DD/ 30 TD/TT: Special Shopper: Authorizing ProviderResult TypeResult StatusGeneric External Data Provider CLINISYNC IMAGINGFinal Result documented in this encounter Visit Diagnoses Not on filedocumented in this encounter Care Teams Team MemberRelationshipSpecialtyStart DateEnd Date Kirby Delong MD PCP - GeneralFamily Medicine04/13/23 Mary Thayer MD [address] [place] [address] Family Medicine04/13/23documented as of this encounter
--- OUTSIDE RECORDS SUMMARY | 2025-07-29 09:00 | XMS_ITS | Clinical Summary ---
Author Organization [facility] Address [address], [address] [place] [address] Care Team Providers Care Plasma Center Technician Name Role Phone Kervin Martin MD Primary Care Provider [phone] Allergies Active AllergyReactionsCriticalityNoted DateCommentsAmoxicillin-Pot Clavulanate 01/15/20130240OoebkbbtsfoOwjmVcx16/29/2013 Medications MedicationSigDispense QuantityRefillsLast FilledStart DateEnd DateStatus loratadine (CLARITIN) 10 MG tablet Take 1 tablet by mouth daily 90 tablet ctive fluticasone (FLONASE) 50 MCG/ACT nasal spray 1 spray by Nasal route dailyActive hydrochlorothiazide (HYDRODIURIL) 25 MG tablet Take 1 tablet by mouth daily Dosage change 30 tablet Active PREVIDENT 5000 BOOSTER PLUS 1.1 % PSTE 12/23/2017Active Active Problems ProblemNoted DateDiagnosed DateRenal stone08/23/20166849Zqhrxdz19/05/2016Sleep apnea 08/23/2016Hay fever01/15/2013 Resolved Problems ProblemNoted DateDiagnosed DateResolved DateUTI (urinary tract infection) Family History Medical HistoryRelationNameCommentsHeart DiseaseMotherRelationNameStatusComments FatherAliveMotherAlive Social History Tobacco UseTypesPacks/DayYears UsedDateSmoking Tobacco: FormerCigarettesQuit: 11/16/2015Smokeless Tobacco: NeverAlcohol UseStandard Drinks/WeekCommentsYes0 (1 standard drink = 0.6 oz pure alcohol)socialCommentsNoSex and Gender InformationValueDate RecordedSex Assigned at BirthNot on fileLegal SexFemale 10/29/2012 12:29 PM ESTGender IdentityNot on fileSexual OrientationNot on file Last Filed Vital Signs Vital SignReadingTime TakenCommentsBlood Xegiemof745/8004 1:37 PM EDT chjemdvWbyah4623/05/2019 1:37 PM BWXJarxjyerjqy48.9 ??C (98.4 ??F)06/05/2018 2:15 PM EDTRespiratory Xrug8397 1:18 PM EDTOxygen Saturation--Inhaled Oxygen Concentration--Ircait189.7 kg (239 lb 9.6 oz)12/22/2018 1:37 PM EDTHeight 165.1 cm (5' 5 )12/22/2018 1:37 PM EDTBody Mass Index39.8712/22/2018 1:37 PM EDT Plan of Treatment Not on file Insurance * Guarantor: Jazzy Woody TypeRelation to PatientDate of BirthPhone Billing AddressPersonal/WlhmuiDpkr1985 [facility] [place] [address] Care Teams Team MemberRelationshipSpecialtyStart DateEnd Date Kervin Martin MD PCP - GeneralInternal Medicine12/22/18
--- OUTSIDE RECORDS SUMMARY | 2025-07-29 09:00 | XMS_ITS | Encounter Summary ---
Author Organization [facility] Address [address] [place] [address] Care Team Providers Care Specialty Department Supervisor Name Role Phone Kirby Delong MD Primary Care Provider Mary Thayer MD Unavailable Encounter Details DateTypeDepartmentCare Team (Latest Contact Info)Akgeazcfmwu94/31/2024Clinisync Result Encounter [facility] External Department Unsolicited Lin Walter MD [address] [place] [address] Social History Tobacco UseTypesPacks/DayYears UsedDateSmoking Tobacco: FormerCigarettes0.33 [...] relatives?Once a week03/25/2025How often do you attend mandaen or congregation services?More than 4 times per year03/25/2025Do you belong to any clubs or organizations such as mandaen groups, unions, fraClear2Pay or athletic groups, or school groups?No03/25/2025How often do you attend meetings of the clubs or organizations you belong to?More than 4 times per year03/25/2025 Are you , , , , never , or living with a partner?Ayctlhcv53/07/2025UDIT-CAnswerDate RecordedQ1: How often do you have a [...] medical care, and heating?Hard03/25/2025PHQ-2AnswerDate RecordedPatient Health Questionnaire-2 Bmspe515Finlifepoint hospitals [place] of Occupational Health - Occupational Stress QuestionnaireAnswerDate [...] steady place to sleep or slept in [facility] (including now)?No09/27/2023Housing Stability Vital SignAnswerDate RecordedIn the [...] InformationValueDate RecordedSex Assigned at BirthNot on fileLegal ZewAuywlh22/15/2023 10:09 PM EDTGender IdentityNot on fileSexual OrientationNot on filedocumented as of this encounter Functional Status * AUDIT-C ScoreAnswerDate of NiiiiayuywWrkzrr890/07/2025 11:35 AM Lety Generic * Q1: How often do you have a drink containing alcohol?AnswerDate of Assessment MpgukqDusnp73/07/2025 11:35 AM Lety Generic * Q2: How many drinks containing alcohol do you have on a typical day when you are drinking?AnswerDate of AssessmentAuthorPatient does not drink03/25/2025 11:35 AM Lety Generic * Q3: How often do you have six or more drinks on one occasion?AnswerDate of KwwjhhnmjfNddxytDmmvl64/07/2025 11:35 AM EDTMychart, Generic documented as of this encounter Plan of Treatment Not on file documented as of this encounter Procedures Procedure NamePriorityDate/TimeAssociated DiagnosisCommentsCT MAXILLOFACIAL W/O TYYSMMLB88/31/2024 11:28 AM EDT documented in this encounter Results * CT MAXILLOFACIAL W/O CONTRAST (02/17/2024 11:28 AM EDT)Anatomical Region LateralityModalityOtherSpecimen (Source)Anatomical Location / Laterality Collection Method / VolumeCollection TimeReceived Time02/17/2024 11:28 AM EDT Narrative 02/21/2024 2:27 PM EDT Exam Date/Time: 02/17/2024 11:41 EDT Reason for [...] Ordering Provider: Lin Walter FINAL REPORT Dictated: ??02/21/2024 2:24 pm ? Fidel Diamond DO Signed (Electronic Signature): ??02/21/2024 2:24 pm Signed by: ??Fidel Diamond DO Transcribed by: ??DP ? Technologist: ??GALLO Procedure Note Radiology, Radiologist, - 02/21/2024 Exam Date/Time: 02/17/2024 11:41 EDT Reason for Exam: J32.4 Chronic frontal sinusitis Report IMPRESSION: PARANASAL SINUSES APPEAR CLEAR. Exam: CT Maxillofacial w/o Contrast History: Sinusitis Technique: Multiple contiguous axial images were obtained of themaxillofacial bones without contrast. Multiplanar reformats were obtained. Comparison: None available Findings: Maxillary Sinuses: Clear. Ethmoid sinuses: Clear. Sphenoid sinuses: Clear. There is sphenoid pneumatization that extendsinferior and posterior to the sella, resulting in a thin posterior bony margin of theclivus, consistent with sellar type pneumatization. Frontal sinuses: Clear. Right sphenoethmoidal recess: Clear. Left sphenoethmoidal recess: Clear. Right ostiomeatal complex and frontal recess: Clear. Left ostiomeatal complex and frontal recess: Clear. Nasal septum: Minimally deviated right. Other: Keros type 2 olfactory fossa on the left and type III on the right.Tiny bilateral Onodi cells. Small right Camilo cell. Mastoid air cells & middle ears: Clear. The middle ears areunremarkable. Soft tissues & Brain: No acute abnormality identified. Orbital contentsare within normal limits. Report All CT scans at this facility use dose modulation, iterativereconstruction, and/or weight based dosing when appropriate to reduce radiation dose to as low as reasonably achievable. Ordering Provider: Lin Walter FINAL REPORT Dictated: 02/21/2024 2:24 pm Fidle Diamond DO Signed (Electronic Signature): 02/21/2024 2:24 pm Signed by: Fidel Diamond DO Transcribed by: ADILENE Technologist: GALLO Authorizing ProviderResult TypeResult StatusHilary H Timdenton MDCLINISYNC IMAGING Final Result documented in this encounter Visit Diagnoses Not on filedocumented in this encounter Care Teams Team MemberRelationshipSpecialtyStart DateEnd Date Kirby Delong MD PCP - GeneralFamily Medicine04/13/23 Mary Thayer MD [address] [place] [address] Family Medicine04/13/23documented as of this encounter
--- NOTE | 2025-07-29 09:01 | XR_ITS ---
The [address] [address] Patient Name: LUL QUEZADA MRN: [id number] date: 1985 Sex: F Assigned Patient Location: [facility] Current Patient Location: [facility] Accession/Order Number: [id number] Exam Date: 07/29/2025 09:15 Report Date: 07/29/2025 09:53 At the request of: ANNA JERRY MD Procedure: XR abdomen 1V SINGLE VIEW ABDOMEN COMPARISON: CT 08/23/2024 and plain films 06/30/2024 CLINICAL DATA: Follow-up kidney stones. Supine views of the abdomen and pelvis were obtained. There is air and stool within the colon, greater on the right. There is no dilated small bowel. The kidneys are partially obscured. Tiny bilateral renal stones are again seen including a small cluster at the lower pole of the right. There are no suspect ureteral or bladder calculi. No soft tissue masses are seen. There is sclerosis at the SI joints. XR/XR abdomen 1V IMPRESSION: SLIGHT LIMITED STUDY DUE TO BOWEL GAS AND STOOL. BILATERAL NEPHROLITHIASIS. Impression dictated by: Selena Thomson M.D. 07/29/2025 9:53 AM Dictation Location: [place] [address] Electronically authenticated by: [id number] Y Date: 07/29/2025 09:53
--- OUTSIDE RECORDS SUMMARY | 2025-07-29 09:03 | XMS_ITS | CCD ---
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 Name Role Phone WINSOME, MINGO S Unavailable Unavailable BETANCUR, MAYE P Unavailable Unavailable WINSOME, MINGO S Unavailable Unavailable BETANCUR, MAYE P Unavailable Unavailable Jennyfer Ruiz Unavailable Jessenia Ortiz Unavailable KIRBY ALBERTO Primary Care Physician [phone] CASTILLO Admitting Unavailable JERRY [...] Unavailable KIRBY ALBERTO Referring Unavailable YOVANI MORALES Attending Unavailable KIRBY ALBERTO Attending Unavailable CADEN JARRED Mehdi Attending Unavailable GORGE WELDON Attending Unavailable CADEN, JARRED C Admitting Unavailable CADEN, JARRED C Attending Unavailable Nisha JOHNSTON, Andrius Marshall Attending Unavailable Giayshaitis , Andrius Vytautstacy Attending Unavailable Nisha JOHNSTON, Andrius Vytautas Attending Unavailable Gilalitharaary JOHNSTON, Andrius Vytautstacy Attending Unavailable Nisha JOHNSTON, Andrius Vytautstacy Attending Unavailable Kirby Alberto MD Primary Care Provider Flaca JOHNSTON, Mary Thomas Unavailable Unavailable Primary Care Provider UnavailLUL Guardado Attending Unavailable KIRBY ALBERTO Referring Unavailable KIRBY ALBERTO Attending Unavailable KIRBY ALBERTO Attending Unavailable KIRBY ALBERTO Attending Unavailable KIRBY ALBERTO Attending Unavailable NO FAMILY, PHYSICIAN Primary Care Provider Unava ilable Kirby Alberto MD Attending Provider Kirby Alberto MD Primary Care Provider Anna JERRY Attending Unavailable Anna JERRY Attending Unavailable Allergies Allergy ClassificationReported Allergen(s)Allergy TypeDate of OnsetReaction(s) FacilityPenicillins (antibiotic) (1 source)Penicillin G; Translations: [penicillin G benzathine]Drug Allergy Eruption of skin (disorder)[facility] (9 sources)Penicillin G Benzathine; Translations: [Penicillin G]Drug allergy rash, Eruption of skin (disorder)[facility] (1 source)PenicillinDrug AllergyThe [facility] (20 sources)Penicillins; Translations: [PENICILLINS]Propensity to adverse reactions to drug (disorder)70[facility]45[facility]1728[facility] Medications Current Medications MedicationDrug Class(es)DatesSig (Normalized)Sig (Original)acetaminophen 500 mg oral tablet (1 source)take 1 tablet by mouth every six hoursTylenol Extra Strength 500 MG 1 tablet as needed Orally every 6 hrs Activeacetaminophen 325 mg / butalbital 50 mg / caffeine 40 mg oral tablet (20 sources)Barbiturate, Central Nervous System Stimulant, MethylxanthineStart: 49-50-1649FUIN/butalbital/caffeine 325 mg-50 mg-40 mg Tab 1 tab(s), Refill(s) 0 Start Date: 07/30/24 Status: OrderedStart: 94-45-7084ttak 1 tablet by mouth four times daily as needed for tyqnlxtihfivesdspp-risooxrfdorsn-rthqmklh 50-325-40 MG tablet Indications: Chronic migraine without aura without status migrainosus, not intractable Take 1 tablet by mouth 4 (four) times a day as needed for h eadaches 60 tablet 2 02/17/2024 ActiveStart: 23-30-3360xgoy 1 tablet by mouth every four hours as vontutOhsqdvxatq-Nleviiqyjuqwn-Qpfb 50-325-40 mg tablet Active 1 TAB PO Every 4 hours as needed November 27, 2023 1:00am Complies with drug therapyalbuterol 0.83 mg/ml inhalation solution (4 sources)beta2-Adrenergic AgonistStart: .5 mg, nebulization, Once as needed, wheezing, Starting on Tue05/07/24 at 0938, For 1 dose, Recovery (only)Start: 18-55-7058hvpj 2 puff(s) by inhalation four times daily as needed Albuterol Sulfate HFA 108 (90 Base) MCG/ACT 2 puffs Inhalation 4 times a day prn Aug, Not-Taking/PRNStart: 83-00-6284berg 2 puff(s) by inhalation four times daily as neededAlbuterol Sulfate HFA 108 (90 Base) MCG/ACT 2 puffs Inhalation 4 times a day prn Aug, Not-TakingAmphetamine / Dextroamphetamine (1 source)Central Nervous System StimulantAdderall Nnyvge76 hr amphetamine aspartate 5 mg / amphetamine sulfate 5 mg / dextroamphetamine saccharate 5 mg / dextroamphetamine sulfate 5 mg extended release oral capsule (20 sources)Central Nervous System StimulantStart: 65-30-0318rqes 2 capsules by mouth once dailyDextroamphetamine-Amphetamine 20 mg capsule,extended release 24hr Active 40 MG PO Daily May 30, 2025 3:39pm Complies with drug therapyStart: 04-29-2025 End: 90-09-1040brko 2 capsules by mouth every twenty-four hours in the morning amphetamine-dextroamphetamine XR (Adderall XR) 20 MG 24 hr capsule Indications: Obstructive sleep apnea (adult) (pediatric) Take 2 capsules (40 mg) by mouth in the morning. Do not crush or chew. 60 capsule 04/29/2025 05/29/2025 ActiveStart: 09-06-2024 End: 86-91-1695gkfr 2 capsules by mouth every twenty-four hours in the morning amphetamine-dextroamphetamine XR (Adderall XR) 20 MG 24 hr capsule Indications: Obstructive sleep apnea (adult) (pediatric) Take 2 capsules (40 mg) by mouth in the morning. Do not crush or chew. 60 capsule 03/27/2025 04/26/2025 Discontinued (Reorder)Start: 74-74-0762Tucurmzd 40 mg, Oral, Refill(s) 0 Start Date: 07/30/24 Status: OrderedStart: 04-18-2024 End: 51-17-1113yczr 1 capsule by mouth every twenty-four hours in the morning amphetamine-dextroamphetamine XR (Adderall XR) 20 MG 24 hr capsule Indications: Obstructive sleep apnea (adult) (pediatric) Take 1 capsule (20 mg) by mouth in the morning. Do not crush or chew.. 60 capsule 06/05/2024 ActiveStart: 02-17-2024 End: 03-34-4378tpgs 1 capsule by mouth once dailyamphetamine-dextroamphetamine XR (Adderall XR) 30 mg 24 hr capsule Take 1 capsule (30 mg) by mouth once daily. 02/17/2024 ActiveStart: 11-27-2023 End: 32-98-2614rqaz 1 capsule by mouth once dailyDextroamphetamine-Amphetamine 20 mg capsule,extended release 24hr Discontinued 20 MG PO Daily 2023 1:00am May 30, 2025 3:43pmbaclofen 10 mg oral tablet (20 sources)gamma-Aminobutyric Acid-ergic AgonistStart: 91-73-9974umvo 1 tablet by mouth once daily as neededBaclofen 10 mg tablet Active 10 MG PO Daily as needed November 27, 2023 1:00am Complies with drug therapyStart: 22-13-6356rphi 1 tablet by mouth in the morningbaclofen (Lioresal) 10 mg tablet Take 1 tablet (10 mg) by mouth early in the morning.. 09/14/2023 Activecaffeine 200 mg oral tablet (1 source)Central Nervous System Stimulant, MethylxanthineStart: 07-30-2024 caffeine 200 mg, Oral, Refills(s) 0 Start Date: 07/30/24 Status: Orderedcalcium chloride 0.0014 meq/ml / potassium chloride 0.004 meq/ml / sodium chloride 0.103 meq/ml / sodium lactate 0.028 meq/ml injectable solution (1 source)Start: 77-85-1700ilws 100 mL intravenously every jwhk473 mL/hr, intravenous, Continuous, Starting on Tue05/07/24 at 1000, Recovery (only) cetirizine hydrochloride 10 mg oral tablet (2 sources)Histamine-1 Receptor Antagonisttake 1 tablet by mouth every twenty- four hoursZyrTEC Allergy 10 MG 1 tablet Orally Once a day Wclitc58 hr cetirizine hydrochloride 5 mg / pseudoephedrine hydrochloride 120 mg extended release oral tablet (20 sources)alpha-Adrenergic Agonist, Histamine-1 Receptor AntagonistStart: 03-26-2024 End: 93-22-9692qhve 1 tablet by mouth once in the morning, then take 1 tablet by mouth every twelve hours at bedtimecetirizine-pseudoephedrine (ZyrTEC-D) 5-120 MG 12 hr tablet Indications: Chronic pansinusitis Take 1 tablet by mouth in the morning and 1 tablet before bedtime. 60 tablet 11 03/26/2024 ActiveStart: 01-16-2024 End: 47-92-7892imww 1 tablet by mouth twice dailycetirizine-pseudoephedrine (ZyrTEC-D) 5-120 mg 12 hr tablet Take 1 tablet by mouth twice a day. 01/16/2024 01/15/2025 ActiveStart: 28-03-1629smun 1 tablet by mouth every twelve hours, then take 1 tablet by mouth every twelve hoursCetirizine-Pseudoephedrine (Zyrtec-D) 5-120 mg tablet extended release 12 hr Active 1 TAB PO Every 12 hours November 27, 2023 1:00am Complies with drug therapycholecalciferol 0.05 mg oral tablet (20 sources)Vitamin DStart: 81-77-0074kxfg 1 tablet by mouth once daily cholecalciferol (Vitamin D-3) 50 MCG (1999 UT) tablet Indications: Vitamin D deficiency, unspecified TAKE 1 TABLET BY MOUTH DAILY 90 tablet 3 07/02/2024 Activecholecalciferol (Vitamin D-3) 50 MCG (1999 UT) tablet 2,000 Units in the morning. Activeclarithromycin 500 mg oral tablet (1 source)Macrolide AntimicrobialStart: 08-54-5684mbyq 1 tablet by mouth every twelve hoursClarithromycin 500 MG 1 tablet Orally every 12 hrs for 10 day(s) Apr, Activeclindamycin 150 mg oral capsule (2 sources)Lincosamide AntibacterialStart: 05-07-2024 End: 60-80-6113kfwg 2 capsules by mouth twice dailyclindamycin (Cleocin) 150 mg capsule Indications: Deviated nasal septum Take 2 capsules (300 mg) bymouth 2 times a day for 10 days. 40 capsule 05/07/2024 05/17/2024 Activeetodolac 400 mg oral tablet (20 sources)Nonsteroidal Anti-inflammatory DrugStart: 69-91-1757paer 1 tablet by mouth every twelve hours as neededEtodolac (Lodine) 400 mg tablet Active 400 MG PO Every 12 hours as needed May 30, 2025 12:00am Complies with drug therapyStart: 65-52-9741dgvu 1 tablet by mouth twice daily as needed for pain etodolac (Lodine) 400 MG tablet Indications: Thoracic spondyloarthritis TAKE 1 TABLET BY MOUTH TWICE DAILY NEEDED FOR PAIN 60 tablet 5 02/25/2025 Active Start: 28-47-7050lerq 1 tablet by mouth twice daily as needed for painetodolac (Lodine) 400 MG tablet Indications: Thoracic spondyloarthritis Take 1 tablet (400 mg) by mouth 2 (two) times a day as needed (Pain) 60 tablet 5 02/17/2024 Activefurosemide 40 mg oral tablet (20 sources)Loop DiureticStart: 20-76-5700ipxt 1 tablet by mouth once daily Furosemide (Lasix) 40 mg tablet Active 40 MG PO Daily May 30, 2025 12:00am Complies with drug therapyStart: 03-08-2023 End: 53-17-3133snpr 1 tablet by mouth once daily as needed for edemafurosemide (Lasix) 40 MG tablet Indications: Bilateral leg edema Take 1 tablet (40 mg) by mouth Daily as needed (Edema) 30 tablet 5 03/26/2025 ActivehydroCHLOROthiazide 12.5 mg oral capsule (9 sources)Thiazide DiureticStart: 42-57-7736thjd 1 capsule by mouth every other dayHydrochlorothiazide 12.5 mg capsule Active 12.5 MG PO As Directed May 30, 2025 12:00am Takeone capsule every other day Complies with drug therapy Start: 29-68-5443tqvu 1 capsule by mouth every other dayhydrochlorothiazide 12.5 mg Cap 12.5 mg = 1 cap(s), Oral, Every other day, # 15 cap(s), Refills(s) 11, Pharmacy: [id number], 153, cm, 07/30/24 16:03:00 EST, Height/Length Dosing, 98, kg, 07/30/24 16:03:00 EST, Weight Dosing Start Date: 07/30/24 Status: Orderedtake 1 tablet by mouth once dailyhydroCHLOROthiazide (HYDRODiuril) 12.5 MG tablet Take 12.5 mg by mouth Daily Active hydroCHLOROthiazide Not-Taking/PRNhydroCHLOROthiazide Not-Taking hydroCHLOROthiazide Active1 ml HYDROmorphone hydrochloride 1 mg/ml cartridge (2 sources)Opioid AgonistStart: .5 mg, intravenous, Every 5 min PRN, pain severe (7-10), first line, Starting on Tue05/07/24 at 0938, For 5 doses, Recovery (only), Max total of 2 mg regardless of dose.Start: .2 mg, intravenous, Every 5 min PRN, pain moderate (4-6), first line, Starting on Tue05/07/24 at 0938, For 5 doses, Recovery (only), Max total of 1 mg regardless of dose.levoFLOXacin 750 mg oral tablet (2 sources)Quinolone AntimicrobialStart: 07-05-2024 End: 63-61-5095pvae 1 tablet by mouth once dailylevoFLOXacin (Levaquin) 750 MG tablet Indications: Acute bronchitis due to other specified organisms Take 1 tablet (750 mg) by mouth Daily for 7 days 7 tablet 07/05/2024 07/12/2024 Active methylPREDNISolone 4 mg oral tablet (1 source)CorticosteroidStart: 76-84-6332qwewncVZKOIMExhbbu 4 MG as directed Orally Once a day for 6 days Apr, Active2 ml metoclopramide 5 mg/ml injection (1 source)Dopamine-2 Receptor AntagonistStart: 36-44-677043 mg, intravenous, Once as needed, nausea/vomiting, second line, Starting on Tue05/07/24 at 0938, F or 1 dose, Recovery (only)montelukast 10 mg oral tablet (2 sources)Leukotriene Receptor AntagonistStart: 87-66-7448gzdanlnsrer 10 mg Tab Refills(s) 0 Start Date: 02/08/23 Status: Orderedmupirocin 0.02 mg/mg topical ointment (2 sources)RNA Synthetase Inhibitor AntibacterialStart: 49-06-0815cgusbrsvn (Bactroban) 2 % ointment Indications: Deviated nasal septum Apply ointment liberally to surgical incision sites three times a day for 14 days 30 g 3 05/07/2024 Activeondansetron 4 mg oral tablet (3 sources)Serotonin-3 Receptor AntagonistStart: 76-52-4117ceye 2 tablets by mouth every eight hours for nauseaondansetron (Zofran) 4 mg tablet Indications: Deviated nasal septum Take 2 tablets (8 mg) by mouth every 8 hours if needed for nausea or vomiting. 20 tablet 05/07/2024 ActiveStart: mg, intravenous, Once as needed, nausea/vomiting, first line, Starting on Tue05/07/24 at 0938, For 1 dose, Recovery (only), When administering via IV Push, administer over 3-5 minutes.oxyCODONE hydrochloride 5 mg oral tablet (2 sources)Opioid AgonistStart: 05-07-2024 End: 24-61-0415fsbg 1 tablet by mouth every six hours for painoxyCODONE (Roxicodone) 5 mg immediate release tablet Indications: Deviated nasal septum Take 1 tablet (5 mg) by mouth every 6 hours if needed for severe pain (7 - 10) for up to 4 days. 16 tablet 05/07/2024 05/11/2024 ActiveStart: 26-28-2119raba 1 tablet by mouth every four hours as needed5 mg, oral, Every 4 hours PRN, pain mild (1-3), first line, Starting on Tue05/07/24 at 0938, Recovery (only), When able to take oral medications., If ordered PRN for pain, nurse is permitted to administer this medication for higher pain scores based on patient preference? Yesoxygen (O2) therapy (1 source)Start: 71-62-1003brdf 1 mL by inhalation every hourinhalation, at 2 mL/hr, Continuous PRN - O2/gases, other, Post-operative care O2 support titration,Starting on Tue05/07/24 at 0938, Recovery (only), Titrate cannula versus simple face mask to O2 saturation, Device: Nasal Cannula, Rate in liters per minute: 2 LPM, Keep O2 Sat Above: 92%, Indications: invasive surgical procedure, Post-operative Oxygen supportPARoxetine hydrochloride 30 mg oral tablet (20 sources)Serotonin Reuptake InhibitorStart: 12-09-2023 End: 28-08-5403fwum 1 tablet by mouth once daily in the morningPARoxetine (Paxil) 30 MG tablet Indications: Generalized anxiety disorder TAKE 1 TABLET BY MOUTH ONCE DAILY IN THE MORNING 30 tablet 11 12/04/2024 ActiveStart: 10-04-2022 take 1 tablet by mouth once dailyParoxetine Hcl (Paxil) 20 mg tablet Active 20 MG PO Daily November 27, 2023 1:00am Complies with drug therapyPaxil Active predniSONE 50 mg oral tablet (8 sources)Start: 07-05-2024 End: 79-49-0787ckcm 1 tablet by mouth once dailypredniSONE (Deltasone) 50 MG tablet Indications: Acute bronchitis due to other specified organisms Take 1 tablet (50 mg) by mouth Daily for 6 days 6 tablet 07/05/2024 07/11/2024 Active Start: 11-27-2023 End: 87-98-5174pvza 1 tablet by mouth twice dailyPrednisone 20 mg tablet Discontinued 20 MG PO Twice daily 10 November 27, 2023 1:00am May 30, 2025 3:40pmStart: 05-83-7880mrabhgPTYV 20 MG Take 3 tabs daily x 3 days, then take 2 tabs daily x 3 days, then take 1 tab dailyx 3 days. Orally Once a day for 9 days Feb, Not-Taking/PRNStart: 09-98-9397qfkh 1 tablet by mouth every twelve hourspredniSONE 20 MG 1 tablet Orally 2 times a day for 5 day(s) Aug, Not-Taking/PRNsodium chloride 0.111 meq/ml nasal spray (3 sources)Start: 59-23-0374cwfyeq chloride ([place]) 0.65 % nasal spray Indications: Deviated nasal septum Administer 1 spray into each nostril if needed for congestion. 30 mL 12 05/14/2024 ActiveStart: 05-07-2024 End: 31-18-1530dqcizi chloride ([place]eca) 0.65 % nasal spray Indications: Deviated nasal septum Administer 1 spray into each nostril if needed for congestion. 30 mL 12 05/07/2024 05/14/2024 Discontinued (Reorder)temazepam 15 mg oral capsule (3 sources)BenzodiazepineStart: 03-26-2025 End: 55-60-7231twmymsokx (Restoril) 15 MG capsule Indications: Insomnia due to mental condition Take 1 capsule (15mg) by mouth as needed at bedtime for sleep 30 capsule 1 03/26/2025 05/25/2025 ActiveThiamine (1 source)Start: 92-64-9157yqqrybkm 100 mg, Refills(s) 0 Start Date: 07/30/24 Status: Orderedtopiramate 25 mg oral tablet (6 sources)Start: 09-91-2794nafx 1 mg by mouth twice dailyTopamax 25 mg Tab mg tab(s), Oral, BID, Refills(s) 0 Start Date: 10/04/22 Status: OrderedTopamax ActivetraZODone hydrochloride 50 mg oral tablet (2 sources)Serotonin Reuptake InhibitorStart: 59-19-2619bddf 1 tablet by mouth once dailyTrazodone 50 mg tablet Active 50 MG PO Daily May 30, 2025 12:00am Complies with drug therapyStart: 33-70-3472uhpo 1 tablet by mouth at bedtimetraZODone (Desyrel) 50 MG tablet Indications: Insomnia due to mental condition Take 1 tablet (50 mg) by mouth at bedtime 30 tablet 3 04/02/2025 ActiveTylenol Extra Strength 500 MG (3 sources)take 1 tablet by mouth every six hours as neededTylenol Extra Strength 500 MG 1 tablet as needed Orally every 6 hrs ActivevalACYclovir 500 mg oral tablet (2 sources)Herpesvirus Nucleoside Analog DNA Polymerase Inhibitor, Herpes Simplex Virus Nucleoside Analog DNA Polymerase Inhibitor, Herpes Zoster Virus Nucleoside Analog DNA Polymerase InhibitorStart: 05-07-2024 End: 41-54-9183rhvq 1 tablet by mouth twice dailyvalACYclovir (Valtrex) 500 mg tablet Indications: Sore of lip Take 1 tablet (500 mg) by mouth 2 times a day for 7 days. 14 tablet 05/07/2024 05/14/2024 Activevitamin B12 (1 source)Vitamin B41Izjkc: 76-18-6391Yzzrnnf B12 See Instructions, Refills(s) 0 Start Date: 07/30/24 Status: OrderedVitamin D (3 sources)Vitamin D ActiveVitamin D3 2000 intl units oral tablet (4 sources)Start: 15-19-7499Qzvmgol D3 2000 intl units oral tablet Refills(s) 0 Start Date: 10/04/22 Status: Ordered Completed/Discontinued Medications MedicationDrug Class(es)DatesSig (Normalized)Sig (Original)acetaminophen 250 mg / aspirin 250 mg / caffeine 65 mg oral tablet (4 sources)Platelet Aggregation Inhibitor, Nonsteroidal Anti-inflammatory Drug, Central Nervous System Stimulant, Methylxanthinetake 2 tablets by mouth every twenty-four hoursExcedrin Migraine 250-250-65 MG 2 tablets Orally Once a day Not-Taking/PRNamitriptyline hydrochloride 25 mg oral tablet (20 sources)Tricyclic AntidepressantStart: 08-27-2024 End: 79-39-2932mivy 1 tablet by mouth at bedtimeamitriptyline (Elavil) 25 MG tablet Indications: Migraine without aura and without status migrainosus, not intractable TAKE 1 TABLET BY MOUTH AT BEDTIME 30 tablet 5 01/01/2025 03/26/2025 DiscontinuedStart: 11-27-2023 End: 85-14-8536zgacnvruxbtzl 25 mg Tab 25 mg = 1 tab(s), Refills(s) 0 Start Date: 07/30/24 Status: Ordereddextromethorphan hydrobromide 1.5 mg/ml / pyrilamine maleate 1.5 mg/ml oral solution (1 source)Uncompetitive A-snygbo-C-aspartate Receptor Antagonist, Sigma-1 AgonistStart: 11-27-2023 End: 00-55-4993zbon 1 mL by mouth every eight hoursPyrilamine-Dextromethorphan (Hopkins Dm) 7.5-7.5 mg/5 mL liquid Discontinued 10 ML PO Every 8 hours 150 5 November 27, 2023 1:00am May 30, 2025 3:40pmpolymyxin b 85799 unt/ml / trimethoprim 1 mg/ml ophthalmic solution (1 source)Dihydrofolate Reductase Inhibitor Antibacterial, Polymyxin-class AntibacterialStart: 99-66-2168lnvn 1 drop(s) into the eye(s) every three hours Polytrim 38603-4.1 UNIT/ML 1 drop into affected eye Ophthalmic every 3 hours while awake for January, Not-TakingPolytrim 24498-2.1 UNIT/ML (1 source)Start: 88-96-2261rgkx 1 drop(s) into the eye(s) every three hours as neededPolytrim 97524-4.1 UNIT/ML 1 drop into affected eye Ophthalmic every 3 hours while awake for January, Not-Taking/PRN Problems Active Problems Problem ClassificationProblemDateDocumented DateEpisodic/ChronicAnxiety disorders (20 sources)Generalized anxiety disorder; Translations: [Generalized anxiety disorder]Onset: 821387-36-8919TgamsfeQjbpuuckv-hyoofyn, conduct, and disruptive behavior disorders (3 sources)Attention deficit hyperactivity disorder; Translations: [Attention- deficit hyperactivity disorder, unspecified type]Onset: ChronicDiseases of mouth; excluding dental (3 sources)Diseases of lips; Translations: [Disorder of lip]Onset: 05-07-2024 EpisodicGenitourinary symptoms and ill-defined conditions (1 source)DysuriaEpisodicGout and other crystal arthropathies (3 sources)Gouty arthritis of left foot; Translations: [Gout, unspecified] ChronicHeadache; including migraine (20 sources)Migraine without aura, not refractory ; Translations: [Migraine without aura, not intractable, without status migrainosus]Onset: 10-04-2023 63-72-3775BcfwmedFzthl valve disorders (4 sources)Heart -84-9584JoekkesxLdlsclaganuyf mental health disorders (16 sources)Insomnia disorder related to another mental disorder; Translations: [Insomnia due to other mental disorder]Onset: 580221-93-4451BnclzpwSjmh disorders (3 sources)Depressive disorder; Translations: [Depression]Onset: 05-07-2024 40-62-7796NavvmtoDahnmhtlfhh chest pain (4 sources)Chest pain, unspecified; Translations: [CHEST PAIN UNSPECIFIED]Onset: 29-27-6120EvmqougnXikxnsuuort deficiencies (20 sources)Vitamin D deficiency; Translations: [Vitamin D deficiency, unspecified]Onset: 658872-17-1003UyoewpvYswezhuuppnydq (1 source)Otzexjcafyvfet71-65-8966TkjyeldNhczh acquired deformities (2 sources)Acquired deformity of nose; 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]Onset: 37-39-7179PymjnxzxNvccu connective tissue disease (1 source)Pain in right arm; Translations: [PAIN IN RIGHT ARM]Onset: 11-03-2022 EpisodicOther connective tissue disease (1 source)Pain in left footEpisodicOther diseases of kidney and ureters (1 source)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; Translations: [Cyst of kidney, acquired]Onset: 33-07-3653OjkyqvunZybzu diseases of kidney and ureters (1 source)Cyst of eixdzd58-72-0832OevdmcxmDbsbf injuries and conditions due to external causes (1 source)History of falling; Translations: [HISTORY OF FALLING]Onset: 25-85-9019OsmoibjrRviil nervous system disorders (1 source)Paresthesia; Translations: [Paresthesia of skin]03-98-2494Vixmjebp Other non-traumatic joint disorders (1 source)Bilateral wrist pain; Translations: [Pain in right wrist]12-12-2024 EpisodicOther nutritional; endocrine; and metabolic disorders (12 sources)Morbid obesity; Translations: [Morbid (severe) obesity due to excess calories]Onset: 900826-68-3025GpdmrcgMbqrt nutritional; endocrine; and metabolic disorders (20 sources)Severe obesity; Translations: [Class 3 severe obesity due to excess calories with serious comorbidity and body mass index (BMI) of 45.0 to 49.9 in adult ([facility])]Onset: 200017-57-2400LbkcaoaGerbo upper respiratory disease (4 sources)Deviated nasal septum; Translations: [Deviated nasal septum]Onset: 40-84-6057LzkrwsuxAeajs upper respiratory disease (10 sources)Deviated nasal septum; Translations: [Deviated nasal septum]Onset: 70-09-5013XcytznxwPbocp upper respiratory disease (2 sources)Nasal congestion; Translations: [Nasal congestion]Onset: 03-15-2024 EpisodicOther upper respiratory disease (2 sources)Hypertrophy of nasal turbinates; Translations: [Hypertrophy of nasal turbinates]Onset: 38-31-4270MsproaftHbdkd upper respiratory infections (20 sources)Chronic sinusitis, unspecified; Translations: [Chronic rhinitis] Onset: 070844-56-3440NiddmlrCzarc upper respiratory infections (1 source)Acute upper respiratory infection, unspecifiedEpisodicResidual codes; unclassified (20 sources)Hypersomnia with sleep apnea; Translations: [Hypersomnia, unspecified]Onset: 856786-85-7251SfoplhqXxipkioyuvi; intervertebral disc disorders; other back problems (20 sources)Spondylosis without myelopathy or radiculopathy, cervical region; Translations: [Spondylosis without myelopathy or radiculopathy, thoracic region] Onset: 071237-94-8505BzylhazYuxlmprkdgr; intervertebral disc disorders; other back problems (6 sources)Cervicalgia; Translations: [Pain in thoracic spine]Onset: 11-01-2022 EpisodicUnclassified (1 source)LOW BACK PAIN, UNSPECIFIED; Translations: [LOW BACK PAIN, UNSPECIFIED] Onset: 75-03-2769Fyxthzogqpko (1 source)Pain in left foot; Translations: [Pain in left foot]Onset: 03-06-2023 Unclassified (2 sources)New Patient Visit; Translations: [New Patient Visit]Onset: 03-15-2024 Past or Other Problems Problem ClassificationProblemDateDocumented DateEpisodic/ChronicAbdominal pain (20 sources)Unspecified abdominal pain; Translations: [Pelvic and perineal pain] Onset: 93-05-7584HjokmxopZzxyx bronchitis (20 sources)Acute infective bronchitis; Translations: [Acute bronchitis due to other specified organisms]Onset: 07-05-2024 Resolved: 099454-71-0855OzxithzcQujuouuq of urinary tract (20 sources)Calculus of kidney; Translations: [Kidney stone]Onset: 07-08-2017 EpisodicImmunizations and screening for infectious disease (2 sources)Contact with and (suspected) exposure to other viral communicable diseases; Translations: [Encounter for screening for human papillomavirus (HPV)] Onset: 07-22-2021 Resolved: 03-86-1889VutssclyQrffk acquired deformities (5 sources)Finding of nasal deformity; 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]Onset: 464945-74-2947TgciqzobMendf female genital disorders (4 sources)Other specified noninflammatory disorders of vagina; Translations: [OTH SPEC NONINFLAMMATORY D/O VAGINA]Onset: 97-92-3857GmwhciiwOovmf lower respiratory disease (1 source)Difficulty breathing; Translations: [Other abnormalities of breathing] 50-58-1190LqiqkbvrBzisy screening for suspected conditions (not mental disorders or infectious disease) (8 sources)Encounter for screening mammogram for malignant neoplasm of breast; Translations: [Encounter for screening for malignant neoplasm of cervix]Onset: 56-79-5673DfzrnmfvRevgh upper respiratory disease (5 sources)Nasal congestion; Translations: [Nasal congestion]Onset: 03-15-2024 87-82-3822EmtjjzjoOkfan upper respiratory disease (1 source)Nasal obstruction; Translations: [Other specified disorders of nose and nasal sinuses]86-00-1784LlyipomuJdryn upper respiratory disease (5 sources)Hypertrophy of nasal turbinates; Translations: [Hypertrophy of nasal turbinates]Onset: 457443-40-1328GxuabvhuNtpgna media and related conditions (1 source)Otitis media, unspecified, left earOnset: 04-22-2022 Resolved: 11-82-1066KvrgyyiiHwjfeoeu codes; unclassified (20 sources)Obstructive sleep apnea syndrome; Translations: [Obstructive sleep apnea (adult) (pediatric)]Onset: 10-04-2023 Resolved: 524495-38-7787DsgyjgrJxlyafys codes; unclassified (1 source)Family history of malignant neoplasm of breast; Translations: [FAMILY HX MALIG NEOPLASM OF BREAST]Onset: 62-92-1565YbxjrbmbFodkbftx codes; unclassified (1 source)Family history of malignant neoplasm of other genital organs; Translations: [FAM HX MALIG NEOPLSM OTH GENIT ORGN]Onset: 92-41-3169Tuqhoftj Residual codes; unclassified (20 sources)Family history of malignant neoplasm of breast in first degree relative; Translations: [Family history of malignant neoplasm of breast]Onset: 095161-35-9854VsuykznbLqtzejde codes; unclassified (20 sources)Bilateral lower limb edema; Translations: [Localized edema]Onset: 849240-67-9669RglpnbbkPxazchun codes; unclassified (1 source)Abnormal sensation; Translations: [Other symptoms and signs involving general sensations and perceptions]83-44-8340YtfuuffmEnfkvghtigue (1 source)Contact with and (suspected) exposure to covid-19 Z20.822Unclassified (1 source)Onset: 720954-19-4250Psjie infection (1 source)COVID-19Onset: 07-22-2021 Resolved: 07-22-2021 Results Test NameValueInterpretationReference RangeFacilityPatient Letter FTMCon 44-33-0987Dcgitud Letter FTMCPatient Letter [facility] January 03, 2025 LUL GURROLA [facility] [place] [address] : 1985 To who it may concern, Lul Gurrola is a current urology patient of mine. Please excuse her to use the bathroom on her breaks and as needed due to the medication which has been prescribed to treat her urological condition. This medication can cause frequency, and urgency. Thank you for your cooperation in this matter. Please feel free to contact me with any questions or concerns. Sincerely, Anna Jerry M.D., F.A.C.S. [facility] [address] [place] [phone] , option #3NoLake County Memorial Hospital - WestEMG 2 Extremitieson 23-44-4194SFL/NCS BUE Normal studyNOCox Walnut LawnNOIN HealthcareNVC -12 Nerveson 82-24-4365FHU/NCS BUE Normal studyBarnes-Jewish HospitalNOIN HealthcareTBH ELECTROLYTESon 81-22-3451Mlweg gap [Moles/Vol]10.9 mmol/LNOMS HealthcareChloride [Moles/Vol]103 mmol/L98 - 107 mmol/LNOMS HealthcareCO2 [Moles/Vol]29 mmol/L21.0 - 32.0 mmol/LNOMS Healthcare Potassium [Moles/Vol]3.9 mmol/L3.5 - 5.1 mmol/LNOMS HealthcareSodium [Moles/Vol] 139 mmol/L136 - 145 mmol/LNOMS HealthcareCLINISYNCNOMS HealthcareCT ABDOMEN PELVIS WO/W CONon 44-65-3853[address] [address] [address] Scan Report Signed Patient: LUL PELAEZ MR#: [id number] : 1985 Acct:[id number] Age/Sex: 39 / F ADM Date: 08/23/24 Loc: CT Attending Dr: Anna Jerry M.D. Ordering Physician: Anna Jerry M.D. Date of Service: 08/23/24 Procedure(s): CT abdomen pelvis wo/w con Accession Number(s): [id number] cc: Kirby Alberto M.D. [place] [address] Patient Name: LUL PELAEZ MRN: [id number] date: 1985 Sex: F Assigned Patient Location: CT Current Patient Location: Accession/Order Number: [id number] Exam Date: 08/23/2024 09:13 Report Date: 08/24/2024 04:45 At the request of: ANNA JERRY Procedure: CT abdomen pelvis wo/w con EXAMINATION: CT abdomen pelvis wo/w con HISTORY: Kidney Stone, Flank Pain COMPARISON: No relevant comparison available. TECHNIQUE: Axial, Coronal, and Sagittal images were obtained without and/or with IV contrast as indicated by examination type. Dose reduction techniques were achieved by using automated exposure control [...] nonobstructing calcifications bilaterally, largest is 7 mm. No ureteral stones. Small cysts favoring benign etiology within left kidney BOWEL/MESENTERY: No bowel wall thickening, obstruction, or [...] nephrolithiasis. No acute findings. Electronically authenticated by: CHELY DALEY Date: 08/24/2024 04:45 Dictated By: Chely Daley M.D. Signed By: 08/24/24447 DD/ 4 TD/TT: Theatre Instructor:LISAadiologfreddie, Radiologist, - 08/24/2024 [place] [address] CT Scan Report Signed Patient: LUL PELAEZ MR#: [id number] : 1985 Acct:[id number] Age/Sex: 39 / F ADM Date: 08/23/24 Loc: CT Attending Dr: Anna Jerry M.D. Ordering Physician: Anna Jerry M.D. Date of Service: 08/23/24 Procedure(s): CT abdomen pelvis wo/w con Accession Number(s): [id number] cc: Kirby Alberto M.D. [place] [address] Patient Name: LUL PELAEZ MRN: [id number] date: 1985 Sex: F Assigned Patient Location: CT Current Patient Location: Accession/Order Number: [id number] Exam Date: 08/23/2024 09:13 Report Date: 08/24/2024 04:45 At the request of: ANNA JERRY Procedure: CT abdomen pelvis wo/w con EXAMINATION: CT abdomen pelvis wo/w con HISTORY: Kidney Stone, Flank Pain COMPARISON: No relevant comparison available. TECHNIQUE: Axial, Coronal, and Sagittal images were obtained without and/or with IV contrast as indicated by examination type. Dose reduction techniques were achieved by using automated exposure control [...] nonobstructing calcifications bilaterally, largest is 7 mm. No ureteral stones. Small cysts favoring benign etiology within left kidney BOWEL/MESENTERY: No bowel wall thickening, obstruction, or [...] nephrolithiasis. No acute findings. Electronically authenticated by: CHELY DALEY Date: 08/24/2024 04:45 Dictated By: Chely Daley M.D. Signed By: 08/24/24447 DD/ 4 TD/TT: Theatre Instructor: [facility] HealthcareRadiology Study observation (narrative)[facility] HealthcareCT ABDOMEN PELVIS WO/W CONOrdered By: Radiologist Radiology on 06-02-1840RGEA [employer] Work Phone: ambulatory Visit Summaryon 32-32-5686Vzmktaxybb Visit SummaryAmbulatory Visit Summary LUL PELAEZ :1985 Visit Date:07/30/2024 Ambulatory Visit Instructions Your Diagnosis Kidney stones Flank pain Renal cyst Your Care Team Attending Physician - CLARITZA JOHNSTON, Anna Lorenzana Primary Care Physician - KIRBY ALBERTO MD This Is Your Medications List Contact prescribing physician if questions or concerns APAP/butalbital/caffeine (APAP/butalbital/caffeine 325 mg-50 mg-40 mg Tab) amitriptyline (amitriptyline 25 mg Tab) amphetamine-dextroamphetamine (Adderall) caffeine cholecalciferol (Vitamin D3 2000 intl [...] Anna JERRY MD Where: [facility] [address] [facility] [place] [address]- You Need to Schedule the Following Appointments Follow Up with Anna JERRY MD, URL When: Where: [facility] [address], [facility] [place] [address] [phone] Medications What How Much When Instructions Unchanged amitriptyline (amitriptyline 25 mg Tab) 1 Tablets Contact prescribing physician if questions or concerns Unchanged amphetamine-dextroamphetamine (Adderall) 40 Milligram By Mouth Contact prescribing physician if questions or concerns Unchanged APAP/ butalbital/ caffeine (APAP/ butalbital/ caffeine 325 mg-50 mg-40 mg Tab) 1 Tablets Contact prescribing physician if questions or concerns Unchanged caffeine 200 Milligram By Mouth Contact prescribing physician if questions or concerns Unchanged cholecalciferol (Vitamin D3 2000 intl units oral tablet) Contact prescribing physician ifquestions or concerns Unchanged cyanocobalamin (Vitamin B12) See [...] of calcium at each meal.Foods that contain 200???500 mg of calcium a serving include: ? 8 oz (237 mL) of milk, oabfsoo-innmkdafcxat-rtwrk milk, and calcium- fortifiedfruit juice. Calcium-fortified means [...] the side. ? Low-fat (more content not included)...[facility] Office/Clinic Noteon 01-52-3267Vsryhhj Office/Clinic NoteUrology Office/Clinic Note Chief Complaint 1yr f/u HPI Staff 1 yr f/u w/ KUB & QING. Last seen IO 07/05/23 by INGRIS, dx: kidney stones, flank pain. Pt called our office 09/22/23 c/o R flank pain and bladder pain. Had gone to urgent and was neg forUTI. QING neg for hydro but KUB showed [...] Multiple bilateral nonobstructing kidney stones measuring up to1 cm on R, better seen on US. [...] month after starting this, will call pt withresults. -Increase water intake and decrease sodium intake [...] is favored over a mass. 1.1 cm benign- appearing L renal cyst. Reviewed imaging results. Advised pt this appears consistent this a cyst vs mass. However will get CT scan to further evaluate. Pt agrees. -Schedule CT scan. Will call pt with results. Follow-up With When Contact Information Anna JERRY MD, URL [facility] [address], [place] [address]- [phone] Additional Instructions: schedule CT scan Patient Education Dietary Guidelines to Help Prevent Kidney Stones Ailin Colbert (more content not included)...[facility] Comment on above:Result Comment: Electronically Signed By: Anna JERRY MD\.br\Date and Time Signed: 07/30/24 17:01 EST\.br\Electronically Co-Signed By: Ailin Dubose\.br\Date and Time Co-Signed: 07/30/24 17:00 ESTXR Knee - bilateral 4 Viewson 13[place] [address] XRay Report Signed Patient: LUL PELAEZ MR#: [id number] : 1985 Acct:[id number] Age/Sex: 39 / F ADM Date: 07/19/24 Loc: [facility] Attending Dr: Edgar Yates NP Ordering Physician: Edgar Yates NP Date of Service: 07/19/24 Procedure(s): XR knee MARKEL 4V Accession Number(s): [id number] cc: Edgar Yates NP; Kirby Alberto M.D. [place] [phone] Patient Name: LUL PELAEZ MRN: [id number] date: 1985 Sex: F Assigned Patient Location: [facility] Current Patient Location: [facility] Accession/Order Number: [id number] Exam Date: 07/19/2024 15:45 Report Date: 07/20/2024 07:07 At the request of: EDGAR YATES Procedure: XR knee MARKEL 4V EXAMINATION: XR [...] LEFT CONCLUSION: Normal Electronically authenticated by: RIC GURROLA Date: 07/20/2024 07:07 Dictated By: Ric Gurrola M.D. Signed By: 07/20/2410 DD/ 6 TD/TT: Theatre Instructor:Chon Arriaga MD - 07/20/2024 [place] [address] XRay Report Signed Patient: LUL PELAEZ MR#: [id number] : 1985 Acct:[id number] Age/Sex: 39 / F ADM Date: 07/19/24 Loc: [facility] Attending Dr: Edgar Yates NP Ordering Physician: Edgar Yates NP Date of Service: 07/19/24 Procedure(s): XR knee MARKEL 4V Accession Number(s): [id number] cc: Edgar Yates NP; Kirby Alberto M.D. [place] [address] Patient Name: LUL PELAEZ MRN: [id number] date: 1985 Sex: F Assigned Patient Location: [facility] Current Patient Location: [facility] Accession/Order Number: [id number] Exam Date: 07/19/2024 15:45 Report Date: 07/20/2024 07:07 At the request of: EDGAR YATES Procedure: XR knee MARKEL 4V EXAMINATION: XR [...] LEFT CONCLUSION: Normal Electronically authenticated by: RIC GURROLA Date: 07/20/2024 07:07 Dictated By: Ric Gurrola M.D. Signed By: 07/20/24709 DD/ 6 TD/TT: Theatre Instructor: [facility] HealthcareRadiology Study observation (narrative)NOMS HealthcareXR Knee - bilateral 4 ViewsOrdered By: Radiologist Radiology on 10-50-1079VTD[facility] Healthcare Work Phone: XR LUMBAR SPINE MIN 4Von 46-77-4122[place], [place] [address] XRay Report Signed Patient: LLU PELAEZ MR#: [id number] : 1985 Acct:[id number] Age/Sex: 39 / F ADM Date: 07/19/24 Loc: RAD Attending Dr: Edgar Yates NP Ordering Physician: Edgar Yates NP Date of Service: 07/19/24 Procedure(s): XR lumbar spine min 4V Accession Number(s): [id number] cc: Edgar Yates NP; Kirby Alberto M.D. [place] [address] Patient Name: LUL PELAEZ MRN: [id number] date: 1985 Sex: F Assigned Patient Location: [facility] Current Patient Location: [facility] Accession/Order Number: [id number] Exam Date: 07/19/2024 15:45 Report Date: 07/20/2024 07:09 At the request of: EDGAR YATES Procedure: XR lumbar spine min 4V EXAMINATION: [...] IMPRESSION: Minimal spondylosis Electronically authenticated by: RIC GURROLA Date: 07/20/2024 07:09 Dictated By: Ric Gurrola M.D. Signed By: 07/20/24710 DD/ 8 TD/TT: Theatre Instructor:LISAadiologfreddie, Radiologist, - 07/20/2024 [place] [address] XRay Report Signed Patient: LUL PELAEZ MR#: [id number] : 1985 Acct:[id number] Age/Sex: 39 / F ADM Date: 07/19/24 Loc: RAD Attending Dr: Edgar Yates NP Ordering Physician: Edgar Yates NP Date of Service: 07/19/24 Procedure(s): XR lumbar spine min 4V Accession Number(s): [id number] cc: Edgar Yates NP; Kirby Alberto M.D. [place] [address] Patient Name: LUL PELAEZ MRN: [id number] date: 1985 Sex: F Assigned Patient Location: [facility] Current Patient Location: [facility] Accession/Order Number: [id number] Exam Date: 07/19/2024 15:45 Report Date: 07/20/2024 07:09 At the request of: EDGAR YATES Procedure: XR lumbar spine min 4V EXAMINATION: [...] IMPRESSION: Minimal spondylosis Electronically authenticated by: RIC GURROLA Date: 07/20/2024 07:09 Dictated By: Ric Gurrola M.D. Signed By: 07/20/24710 DD/ 8 TD/TT: Theatre Instructor: [facility] HealthcareRadiology Study observation (narrative)NOMS HealthcareXR LUMBAR SPINE MIN 4VOrdered By: Radiologist Radiology on 77-65-1181EH[facility] Work Phone: XR SACROILIAC JOINTon 12-74-1682Qze [place] [phone] XRay Report Signed Patient: LUL PELAEZ MR#: [id number] : 1985 Acct:[id number] Age/Sex: 39 / F ADM Date: 07/19/24 Loc: RAD Attending Dr: Edgar Yates NP Ordering Physician: Edgar Yates NP Date of Service: 07/19/24 Procedure(s): XR sacroiliac joint MARKEL Accession Number(s): [id number] cc: Edgar Yates NP; Kirby Alberto M.D. [place] [address] Patient Name: LUL PELAEZ MRN: [id number] date: 1985 Sex: F Assigned Patient Location: RAD Current Patient Location: Accession/Order Number: [id number] Exam Date: 07/19/2024 15:45 Report Date: 07/20/2024 07:06 At the request of: EDGAR YATES Procedure: XR sacroiliac joint MARKEL PROCEDURE: XR sacroiliac joint MARKEL COMPARISON: None. HISTORY: Sacroiliitis, Chronic Low Back Pain FINDINGS: BONES:No fracture, acute abnormality, or significant arthropathy. SOFT TISSUES:Negative. No visible soft tissue swelling. EFFUSION:None visible. Sacroiliac joints: Negative. XR/XR sacroiliac joint MARKEL IMPRESSION: No radiographic abnormality Electronically authenticated by: RIC GURROLA Date: 07/20/2024 07:06 Dictated By: Ric Gurrola M.D. Signed By: 07/20/24708 DD/ 5 TD/TT: Theatre Instructor:TBHRadiology, Radiologist, MD - 07/20/2024 [place] [address] XRay Report Signed Patient: LUL PELAEZ MR#: [id number] : 1985 Acct:[id number] Age/Sex: 39 / F ADM Date: 07/19/24 Loc: RAD Attending Dr: Edgar Yates NP Ordering Physician: Edgar Yates NP Date of Service: 07/19/24 Procedure(s): XR sacroiliac joint MARKEL Accession Number(s): [id number] cc: Edgar Yates COOK CHILL TECHNICIAN; Kirby Alberto M.D. [address] [address] Patient Name: LUL PELAEZ MRN: [id number] date: 1985 Sex: F Assigned Patient Location: [facility] Current Patient Location: Accession/Order Number: [id number] Exam Date: 07/19/2024 15:45 Report Date: 07/20/2024 07:06 At the request of: EDGAR YATES Procedure: XR sacroiliac joint MARKEL PROCEDURE: XR sacroiliac joint MARKEL COMPARISON: None. HISTORY: Sacroiliitis, Chronic Low Back Pain FINDINGS: BONES:No fracture, acute abnormality, or significant arthropathy. SOFT TISSUES:Negative. No visible soft tissue swelling. EFFUSION:None visible. Sacroiliac joints: Negative. XR/XR sacroiliac joint MARKEL IMPRESSION: No radiographic abnormality Electronically authenticated by: RIC GURROLA Date: 07/20/2024 07:06 Dictated By: Ric Gurrola M.D. Signed By: 07/20/24708 DD/ 5 TD/TT: Theatre Instructor: [facility] HealthcareRadiology Study observation (narrative)T[facility] HealthcareXR SACROILIAC JOINTOrdered By: Radiologist Radiology on 29-37-0211[facility] Work Phone: US RENAL AND BLADDERon 61-37-6438Mxl[place] [phone] Ultrasound Report Signed Patient: LUL PELAEZ MR#: [id number] : 1985 Acct:[id number] Age/Sex: 38 / F ADM Date: 06/30/24 Loc: US Attending Dr: Ximena YEE Ordering Physician: Ximena Cuevas Date of Service: 06/30/24 Procedure(s): US renal bladder Accession Number(s): [id number] cc: Kirby Alberto M.D.; Ximena Cuevas [address] [address] Patient Name: LUL PELAEZ MRN: [id number] date: 1985 Sex: F Assigned Patient Location: US Current Patient Location: US Accession/Order Number: [id number] Exam Date: 06/30/2024 09:10 Report Date: 07/01/2024 09:11 At the request of: XIMENA CUEVAS Procedure: US renal bladder EXAMINATION: US renal [...] demonstrates blood flow within the kidney. Kidney: 10.8 x 4.5 x 3.6 cm LEFT KIDNEY: Contains a 1.1 cm benign-appearing cyst. Several slightly hyperechoic foci, possibly representing stones. Normal parenchymal echogenicity. Color Doppler demonstrates blood flow within the kidney. Kidney: 12.4 x 4.7 x 4.9 cm BLADDER: No visible wall thickening, mass, or calculi. Post void residual: 0 mL URETERAL JETS: Visualized bilaterally. US/US renal bladder IMPRESSION: 1. Prominent cortical parenchymal within the right kidney versus mass. I suspect this represents artifact and represents slightly prominent parenchyma. However, consider CT imaging of the kidneys without and with IV contrast for further evaluation. 2. Several small slightly hyperechoic foci within the kidneys which may represent nonobstructing stones. No visible stones on the abdominal radiograph obtained on the same day. This could also be evaluated during CT imaging. Electronically authenticated by: CHELY DALEY Date: 07/01/2024 09:11 Dictated By: Chely Daley M.D. Signed By: 07/01/24912 DD/ 0 TD/TT: Theatre Instructor:LISAadiology, Radiologist, - 07/01/2024 [place] [address] Ultrasound Report Signed Patient: LUL PELAEZ MR#: [id number] : 1985 Acct:[id number] Age/Sex: 38 / F ADM Date: 06/30/24 Loc: US Attending Dr: Ximena YEE Ordering Physician: Ximena Cuevas Date of Service: 06/30/24 Procedure(s): US renal bladder Accession Number(s): [id number] cc: Kirby Alberto M.D.; Ximena Cuevas [place] [phone] Patient Name: LUL PELAEZ MRN: [id number] date: 1985 Sex: F Assigned Patient Location: US Current Patient Location: US Accession/Order Number: [id number] Exam Date: 06/30/2024 09:10 Report Date: 07/01/2024 09:11 At the request of: XIMENA CUEVAS Procedure: US renal bladder EXAMINATION: US renal [...] demonstrates blood flow within the kidney. Kidney: 10.8 x 4.5 x 3.6 cm LEFT KIDNEY: Contains a 1.1 cm benign-appearing cyst. Several slightly hyperechoic foci, possibly representing stones. Normal parenchymal echogenicity. Color Doppler demonstrates blood flow within the kidney. Kidney: 12.4 x 4.7 x 4.9 cm BLADDER: No visible wall thickening, mass, or calculi. Post void residual: 0 mL URETERAL JETS: Visualized bilaterally. US/US renal bladder IMPRESSION: 1. Prominent cortical parenchymal within the right kidney versus mass. I suspect this represents artifact and represents slightly prominent parenchyma. However, consider CT imaging of the kidneys without and with IV contrast for further evaluation. 2. Several small slightly hyperechoic foci within the kidneys which may represent nonobstructing stones. No visible stones on the abdominal radiograph obtained on the same day. This could also be evaluated during CT imaging. Electronically authenticated by: CHELY DALEY Date: 07/01/2024 09:11 Dictated By: Chely Daley M.D. Signed By: 07/01/24912 DD/ 0 TD/TT: Theatre Instructor: [facility] HealthcareRadiology Study observation (narrative)TIN HealthcareUS RENAL AND BLADDEROrdered By: Radiologist Radiology on 46-62-6850[facility] Work Phone: XR ABDOMEN 1Von 93-91-9760[place] [address] XRay Report Signed Patient: LUL PELAEZ MR#: [id number] : 1985 Acct:[id number] Age/Sex: 38 / F ADM Date: 06/30/24 Loc: US Attending Dr: Ximena YEE Ordering Physician: Ximena Cuevas Date of Service: 06/30/24 Procedure(s): XR abdomen 1V Accession Number(s): [id number] cc: Kirby Alberto M.D.; Ximena Cuevas [place] [address] Patient Name: LUL PELAEZ MRN: [id number] date: 1985 Sex: F Assigned Patient Location: Current Patient Location: Accession/Order Number: [id number] Exam Date: 06/30/2024 09:13 Report Date: 07/01/2024 09:06 At the request of: XIMENA CUEVAS Procedure: XR abdomen 1V EXAMINATION: XR abdomen 1V HISTORY: KIDNEY STONE N20.0 COMPARISON: XR abdomen 09/22/2023 FINDINGS: KIDNEY/URETER - RIGHT: No visible renal or ureteral calcifications. KIDNEY/URETER - LEFT: No visible renal or ureteral calcifications. PELVIS: No visible ureteral stones. Clearing of previously seen lower right pelvic calcification. BOWEL: No abnormal dilation or deviation. BONES: No acute abnormality. OTHER: Surgical clips within right upper quadrant. XR/XR abdomen 1V IMPRESSION: 1. No visible urinary tract calculi. Electronically authenticated by: CHELY DALEY Date: 07/01/2024 09:06 Dictated By: Chely Daley M.D. Signed By: 07/01/24908 DD/ 5 TD/TT: Theatre Instructor:LISAadiologfreddie, Radiologist, - 07/01/2024 [place] [address] XRay Report Signed Patient: LUL PELAEZ MR#: [id number] : 1985 Acct:[id number] Age/Sex: 38 / F ADM Date: 06/30/24 Loc: US Attending Dr: Ximena YEE Ordering Physician: Ximena Cuevas Date of Service: 06/30/24 Procedure(s): XR abdomen 1V Accession Number(s): [id number] cc: Kirby Alberto M.D.; Ximena Cuevas [place] [address] Patient Name: LUL PELAEZ MRN: [id number] date: 1985 Sex: F Assigned Patient Location: Current Patient Location: Accession/Order Number: [id number] Exam Date: 06/30/2024 09:13 Report Date: 07/01/2024 09:06 At the request of: XIMENA CUEVAS Procedure: XR abdomen 1V EXAMINATION: XR abdomen 1V HISTORY: KIDNEY STONE N20.0 COMPARISON: XR abdomen 09/22/2023 FINDINGS: KIDNEY/URETER - RIGHT: No visible renal or ureteral calcifications. KIDNEY/URETER - LEFT: No visible renal or ureteral calcifications. PELVIS: No visible ureteral stones. Clearing of previously seen lower right pelvic calcification. BOWEL: No abnormal dilation or deviation. BONES: No acute abnormality. OTHER: Surgical clips within right upper quadrant. XR/XR abdomen 1V IMPRESSION: 1. No visible urinary tract calculi. Electronically authenticated by: CHELY DALEY Date: 07/01/2024 09:06 Dictated By: Chely Daley M.D. Signed By: 07/01/24908 DD/ 0906 TD/TT: Theatre Instructor: [facility] HealthcareRadiology Study observation (narrative)[facility]OM HealthcareXR ABDOMEN 1VOrdered By: Radiologist Radiology on 40-67-3819[facility] Work Phone: HCG QUALITATIVE*on 29-26-1710SJH , QUAL NegativeNEGATIVENOMS HealthcareCLINISYNCNOMS HealthcareHCG ( test) Ql (U)on 24-01-5900Vacrgeuxnsjlut and review of laboratory resultsNormalUSouthview Medical Center Work Phone: Preg Test, UrNegativeNegativeSelect Medical [facility] [place] Work Phone: [facility] Work Phone: CT MAXILLOFACIAL W/O CONTRASTon 02-21-2024 Exam Date/Time: 02/17/2024 11:41 EDT Reason for [...] Fidel Diamond DO Transcribed by: ADILENE Technologist: DANIELRadiology, Radiologist, - 02/21/2024 Exam Date/Time: 02/17/2024 11:41 [...] Diamond DO Transcribed by: ADILENE Technologist: GALLO CASTLE HealthcareCT MAXILLOFACIAL W/O CONTRASTOrdered By: Radiologist Radiology on 06-82-4143TPFA [employer] Work Phone: ct MAXILLOFACIAL W/O CONTRASTon 73-18-3109Dorufrzab Study observation (narrative)SHAYLAQuintin Rider RENAL BIon 15-04-6851[place]eg[place] [address] Ultrasound Report Signed Patient: LUL PELAEZ MR#: [id number] : 1985 Acct:[id number] Age/Sex: 38 / F ADM Date: 09/22/23 Loc: US Attending Dr: Ximena YEE Ordering Physician: Ximena Cuevas Date of Service: 09/22/23 Procedure(s): US renal BI Accession Number(s): [id number] cc: Kirby Alberto M.D.; Ximena Cuevas [place] [id number] Patient Name: LUL PELAEZ MRN: [id number] date: 1985 Sex: F Assigned Patient Location: US Current Patient Location: US Accession/Order Number: [id number] Exam Date: 09/22/2023 18:00 Report Date: 09/22/2023 19:29 At the request of: XIMENA CUEVAS Procedure: US renal BI EXAM: US renal BI HISTORY: N20.0 KIDNEY STONE COMPARISON: None available. TECHNIQUE: Ultrasound examination of the kidneys and urinary bladder was performed. FINDINGS: RIGHT: The right kidney is normal in size. Right kidney measures 11.6 cm in length. Slight cortical thinning, cortex measures 8 mm in thickness. There is no significant hydronephrosis. Multiple echogenic foci with twinkle artifact suggesting nonobstructing kidney stones, largest measuring 10 mm in the right mid kidney. No focal renal mass. 2.7 x 1.9 x 2.4 cm right mid kidney parapelvic cyst versus right pelviectasis. LEFT: The left kidney is normal in size. Left kidney measures 11.7 cm in length. No significant cortical thinning. There is no hydronephrosis. Multiple echogenic foci with twinkle artifact suggesting nonobstructing kidney stones, largest measuring 5 mm. No focal renal mass. 0.8 x 0.9 x 1.3 cm left upper pole kidney cyst. BLADDER: Unremarkable. No bladder stones seen. 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 US/US renal BI IMPRESSION: 1. Multiple nonobstructing bilateral kidney stones measuring up to 10 mm on the right and 5 mm on the left. 2. Cigarette Inspector did not comment about hydronephrosis. 2.7 cm right mid kidney parapelvic cyst versus right pelviectasis. No significant right calyceal dilatation. No left hydronephrosis. 3. 1.3 cm left upper pole kidney cyst. 4. Slight right kidney cortical thinning. Electronically authenticated by: RUKHSANA TOVAR Date: 09/22/2023 19:29 Dictated By: Rukhsana Tovar M.D. Signed By: 09/22/231930 DD/ 28 TD/TT: Theatre Instructor:TBHRadiology, Radiologist, - 09/22/2023 [place] [address] Ultrasound Report Signed Patient: LUL PELAEZ MR#: [id number] : 1985 Acct:[id number] Age/Sex: 38 / F ADM Date: 09/22/23 Loc: US Attending Dr: Ximena YEE Ordering Physician: Ximena Cuevas Date of Service: 09/22/23 Procedure(s): US renal BI Accession Number(s): [id number] cc: Kirby Alberto M.D.; Ximena Cuevas [place] [id number] Patient Name: LUL PELAEZ MRN: [id number] date: 1985 Sex: F Assigned Patient Location: Current Patient Location: US Accession/Order Number: [id number] Exam Date: 09/22/2023 18:00 Report Date: 09/22/2023 19:29 At the request of: XIMENA CUEVAS Procedure: US renal BI EXAM: US renal BI HISTORY: N20.0 KIDNEY STONE COMPARISON: None available. TECHNIQUE: Ultrasound examination of the kidneys and urinary bladder was performed. FINDINGS: RIGHT: The right kidney is normal in size. Right kidney measures 11.6 cm in length. Slight cortical thinning, cortex measures 8 mm in thickness. There is no significant hydronephrosis. Multiple echogenic foci with twinkle artifact suggesting nonobstructing kidney stones, largest measuring 10 mm in the right mid kidney. No focal renal mass. 2.7 x 1.9 x 2.4 cm right mid kidney parapelvic cyst versus right pelviectasis. LEFT: The left kidney is normal in size. Left kidney measures 11.7 cm in length. No significant cortical thinning. There is no hydronephrosis. Multiple echogenic foci with twinkle artifact suggesting nonobstructing kidney stones, largest measuring 5 mm. No focal renal mass. 0.8 x 0.9 x 1.3 cm left upper pole kidney cyst. BLADDER: Unremarkable. No bladder stones seen. 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 US/US renal BI IMPRESSION: 1. Multiple nonobstructing bilateral kidney stones measuring up to 10 mm on the right and 5 mm on the left. 2. Cigarette Inspector did not comment about hydronephrosis. 2.7 cm right mid kidney parapelvic cyst versus right pelviectasis. No significant right calyceal dilatation. No left hydronephrosis. 3. 1.3 cm left upper pole kidney cyst. 4. Slight right kidney cortical thinning. Electronically authenticated by: RUKHSANA TOVAR Date: 09/22/2023 19:29 Dictated By: Rukhsana Tovar M.D. Signed By: 09/22/231930 DD/ 28 TD/TT: Theatre Instructor: [facility] HealthcareRadiology Study observation (narrative)[facility] HospitalUS RENAL BI Ordered By: Radiologist Radiology on 57-13-2423[facility] Work Phone: Urinalysis - AUTOMATEDon 81-32-1454Ihyakfrruq (U)clear [employer] Other Bilirubin Ql (U)[employer] Other Color (U)yellowJascha [employer] Other Glucose Ql (U)[facility] BaptistMirDeneg Other Hemoglobin Ql (U)smallJascha [employer] Other Ketones Ql (U)NegativeSwengel [employer] Other Leukocyte esterase Test strip Ql (U)NegativeSwengel [employer] Other Nitrite Ql (U)Negativedigedu Other pH (U)7.0 [pH][employer] Other Protein Ql (U)NegativeSwengel [employer] Other Specific gravity (U) [Rel density]1.025[facility] [employer] Other Urobilinogen (U) [Mass/Vol]0.2 mg/dLSwengel [employer] Other Urinalysis - AUTOMATEDSwengel [employer] Other XR ABDOMEN 1Von 89-10-9888[place] [address] XRay Report Signed Patient: LUL PELAEZ MR#: [id number] : 1985 Acct:[id number] Age/Sex: 38 / F ADM Date: 09/22/23 Loc: Attending Dr: Ximena YEE Ordering Physician: Ximena Cuevas Date of Service: 09/22/23 Procedure(s): XR abdomen 1V Accession Number(s): [id number] cc: Kirby Alberto M.D.; Ximena Cuevas [place] [address] Patient Name: LUL PELAEZ MRN: [id number] date: 1985 Sex: F Assigned Patient Location: Current Patient Location: US Accession/Order Number: [id number] Exam Date: 09/22/2023 17:14 Report Date: 09/22/2023 19:31 At the request of: XIMENA CUEVAS Procedure: XR abdomen 1V IMAGES REVIEWED: XR abdomen 1V COMPARISON: 10/02/2022. CLINICAL INDICATION: N20.0 KIDNEY STONE FINDINGS/IMPRESSION: On the prior x-ray from 10/02/2022 there was an approximately 7 mm calcific density overlying expected location of the right kidney which is no longer seen on today's x-ray. On today's x-ray there is an approximately 7 mm calcific density overlying the right pelvis near the expected location of the right UVJ which was not seen on prior KUBs and raises concern for migration of previously seen right kidney stone through the right distal ureter, now possibly situated in the right UVJ region. This could be better delineated with CT if clinically indicated. Multiple bilateral nonobstructing kidney stones measuring up to 1 cm on the right better seen on same-day ultrasound. Electronically authenticated by: RUKHSANA TOVAR Date: 09/22/2023 19:31 Dictated By: Rukhsana Tovar M.D. Signed By: 09/22/231933 DD/ 30 TD/TT: Theatre Instructor:TBHRadiology, Radiologist, - 09/22/2023 [place] [address] XRay Report Signed Patient: LUL PELAEZ MR#: [id number] : 1985 Acct:[id number] Age/Sex: 38 / F ADM Date: 09/22/23 Loc: Attending Dr: Ximena YEE Ordering Physician: Ximena Cuevas Date of Service: 09/22/23 Procedure(s): XR abdomen 1V Accession Number(s): [id number] cc: Kirby lAberto M.D.; Ximena Cuevas The [address] [address] Patient Name: LUL PELAEZ MRN: [id number] date: 1985 Sex: F Assigned Patient Location: Current Patient Location: US Accession/Order Number: [id number] Exam Date: 09/22/2023 17:14 Report Date: 09/22/2023 19:31 At the request of: XIMENA CUEVAS Procedure: XR abdomen 1V IMAGES REVIEWED: XR abdomen 1V COMPARISON: 10/02/2022. CLINICAL INDICATION: N20.0 KIDNEY STONE FINDINGS/IMPRESSION: On the prior x-ray from 10/02/2022 there was an approximately 7 mm calcific density overlying expected location of the right kidney which is no longer seen on today's x-ray. On today's x-ray there is an approximately 7 mm calcific density overlying the right pelvis near the expected location of the right UVJ which was not seen on prior KUBs and raises concern for migration of previously seen right kidney stone through the right distal ureter, now possibly situated in the right UVJ region. This could be better delineated with CT if clinically indicated. Multiple bilateral nonobstructing kidney stones measuring up to 1 cm on the right better seen on same-day ultrasound. Electronically authenticated by: RUKHSANA TOVAR Date: 09/22/2023 19:31 Dictated By: Rukhsana Tovar M.D. Signed By: 09/22/231933 DD/ 30 TD/TT: Theatre Instructor: [facility] HealthcareRadiology Study observation (narrative)[facility] HealthcareXR ABDOMEN 1VOrdered By: Radiologist Radiology on 39-99-2559[facility] Work Phone: XR foot LT min 3V*on 96-02-8236OP foot LT min 3V* [facility] [place] [address] XRay Report Signed Patient: Lul Pelaez MR#: [id number] : 1985 Acct:[id number] Age/Sex: 37 / F ADM Date: 03/06/23 Loc: XDUCLY Room: Type: [facility] Attending Dr: Leana Soler APRN Copies to: [...] Selena Thomson M.D.03/06/2023 2:30 PM Dictation Location: [place] [address] Transcribed By: [facility] 03/06/23 1430 Dictated By: Selena Thomson MD 03/06/23 1429 Signed By: 03/06/23 1430NoDayton VA Medical CenterXR foot LT min 3V*[facility] [employer] Other XR foot LT min 3V*[facility] [employer] Other XR foot LT min 3V*[address] [place] [address] [employer] Other XR foot LT min 3V*[place], [place] [address] [employer] Other XR foot LT min 3V*XRay [facility] [employer] Other XR foot LT min 3V*[facility] [employer] Other XR foot LT min 3V*Patient: Lul Pelaez MR#: [id number] [place] [employer] Other XR foot LT min 3V*[facility] [employer] Other XR foot LT min 3V*: 1985 Acct:[id number] Coast [employer] Other XR foot LT min 3V*Age/Sex: 37 / F ADM Date: 03/06/23 [facility] [employer] Other XR foot LT min 3V*Loc: XDUCLY Room: Type: [facility] [employer] Other XR foot LT min 3V*Attending Dr: Leana Soler APRN [facility] [employer] Other XR foot LT min 3V*Copies to: Leana Soler APRN [employer] Other XR foot LT min 3V*Ordering Provider: Leana Soler APRNortheast Missouri Rural Health [facility] [employer] Other XR foot LT min 3V*Date of Service: 03/06/23Sw[employer] Other XR foot LT min 3V* XR/XR foot LT min 3V*: M79.672Sw[employer]el [employer] Other XR foot LT min 3V*LEFT FOOT - 3 viewsSwengel [employer] Other XR foot LT min 3V*CLINICAL DATA: Dorsal foot pain for the past 5 days. No injurySwengel [employer] Other XR foot LT min 3V*COMPARISON: [facility] [employer] Other XR foot LT min 3V*AP, lateral and oblique views were obtained. There is no evidence of fracture or dislocation.MirDeneg Other XR foot LT min 3V*There are posterior and plantar calcaneal spurs. There is soft tissue swelling over the dorsum ofSwengel [employer] Other XR foot LT min 3V*foot. The soft tissues of the ankle are also prominent.MirDeneg Other XR foot LT min 3V* XR/XR foot LT min 3V*MirDen[employer] Other XR foot LT min 3V*IMPRESSION:MirDeneg Other XR foot LT min 3V*NO ACUTE BONY FINDINGS.MirDeneg Other XR foot LT min 3V*Impression dictated by: Selena Thomson M.D.03/06/2023 2:30 [facility] [employer] Other XR foot LT min 3V*Dictation Location: [id number] [employer] Other XR foot LT min 3V*Transcribed By: NESSA 03/06/23 1430 MirDen[employer] Other XR foot LT min 3V*Dictated By: Selena Thomson MD 03/06/23 1429[employer] Other XR foot LT min 3V*Signed By:MirDeneg Other XR foot LT min 3V*03/06/23 1430[employer]edu Other CITRATE URINE 24HRon 34-33-7732Ojnaxa Acid, U, 11vv912 mg/24 koFmtesn609-2098JcpMary Rutan HospitalComment on above:Result Comment: This test was developed and its performance characteristics determined by [employer]. It has not been cleared or approved by the Food and Drug Administration.Performed By: #### OX24HR #### [facility] [address] [place] [address] Dr. Niel KrishnamurthyCitric Acid, Aauea268 mg/LNormalUndefinedMary Rutan Hospital Comment on above:Performed By: #### OX24HR #### [facility] [address] [place] [address] Dr. Neil KrishnamurthyOXALATE 24HR URINEon 64-28-1865Jegrqqlf, Urine7 mg/LNormal UndefinedMary Rutan HospitalComment on above:Performed By: #### OX24HR #### [facility] [address] [place] [address] Dr. Neil KrishnamurthyOxalates, Urine 24hr14 mg/24 hrNormal4-31[facility] Comment on above:Performed By: #### OX24HR #### [facility] [address] [place] [address] Dr. Neil KrishnamurthyMAGNESIUM 24HR URINEon 38-07-1541Byoiitiim 24hr Pmcau290.9 mg/24 bzXquwif29.0-293.0The [facility] CenterComment on above:Performed By: #### CO2, CL, BUN, CREA, URIC, K, CA, NA #### [facility] [address] [place] [address] Dr. Neil KrishnamurthyMagnesium UR5.7 mg/dLNormalNot Estab.The [facility] CenterComment on above:Performed By: #### CO2, CL, BUN, CREA, URIC, K, CA, NA #### [facility] [address] [place] [address] Dr. Neil KrishnamurthyPHOSPHORUS 24HR URINEon 96-20-1093Jgtbemkhhv, Urine56.6 mg/dL NormalNot Estab.The [facility] CenterComment on above:Performed By: #### OX24HR #### [facility] [address] [place] [address] Dr. Neil KrishnamurthyPhosphorus, Urine 77dt7416 mg/24 hrCritically knmh943-0186Tby [facility] on above:Performed By: #### OX24HR #### [facility] [address] [place] [address] Dr. Neil Hoffman INTACTon 80-17-5143TDQ, Ursitm83 pg/qGDlduxb65-10Tkr [facility] on above:Performed By: #### OX24HR #### [facility] [address] [place] [address] Dr. Neil KrishnamurthyURIC ACID 24 HR URINEon 71-04-4318Yalk Acid, Urine23.4 mg/dL NormalNot Estab.The [facility] CenterComselect specialty [facility] on above:Performed By: #### OX24HR #### [facility] [address] [place] [address] Dr. Neil KrishnamurthyUric Acid, Urine 39kr309.7 mg/24 byGvqrvo134.7-902.1The [facility] on above:Performed By: #### OX24HR #### [facility] [address] [place] [address] Dr. Neil Le 99-86-0714Ggsk nitrogen [Mass/Vol]12.0 mg/dLNormal7.0-18.0 The [facility] on above:Performed By: #### CO2, CL, BUN, CREA, URIC, K, CA, NA #### [facility] [address] [place] [address] Dr. Neil GuzmanIUMon 50-13-5610Jfizqyq [Mass/Vol]8.6 mg/dLNormal8.5-10.1Mary Rutan HospitalComment on above:Performed By: #### OX24HR #### [facility] [address] [place] [address] Dr. Neil GuzmanIUM 24 HR URINEon 95-66-9994THID, 24 HR UR479.7 mg/24 hr Critically nfbb992.0-300.0The [facility] CenterComment on above:Performed By: #### VAGINT #### [facility] [address] [place] [address] Dr. Neil Hernandez VMVBWCV98.4 mg/dLCritically high5.1-21.0The [facility] Comment on above:Performed By: #### VAGINT #### [facility] [address] [place] [address] Dr. Neil Hernandez TOT HWQ5520 ml/24 HRNormalThe [facility] CenterComment on above:Performed By: #### VAGINT #### [facility] [address] [place] [address] Dr. Neil KrishnamurthyPerformed By: #### CO2, CL, BUN, CREA, URIC, K, CA, NA #### [facility] [address] [place] [address] Dr. Neil KrishnamurthyCHLORIDEon 77-18-4747Atdxjixw [Moles/Vol]106 mmol/YLkoapq53-946 The [facility] CenterComment on above:Performed By: #### CO2, CL, BUN, CREA, URIC, K, CA, NA #### [facility] [address] [place] [address] Dr. Neil KrishnamurthyCO2on 18-88-9056HY8 [Moles/Vol]25.7 mmol/GZpieyb55.0-32.0The [facility] CenterComment on above:Performed By: #### CO2, CL, BUN, CREA, URIC, K, CA, NA #### [facility] [address] [place] [address] Dr. Neil Mayo 24 HR URINEon 58-38-4195STBE, 24 [address]1604.04 mg/24 hrNormal 800.00-1,800.00The [facility]ja [facility] Centerment on above:Performed By: #### CO2, CL, BUN, CREA, URIC, K, CA, NA #### [facility] [address] [place] [address] Dr. Neil Carbone CREAT66.88 mg/cMScdpxy69.00-300.00The [facility] Comment on above:Performed By: #### CO2, CL, BUN, CREA, URIC, K, CA, NA #### [facility] [address] [place] [address] Dr. Neil FarrATININEon 62-64-0520Vorgoxkjje [Mass/Vol]0.78 mg/dLNormal 0.55-1.02The [facility] on above:Performed By: #### CO2, CL, BUN, CREA, URIC, K, CA, NA #### [facility] [address] [place] [address] Dr. Neil DoanGFR-AF BR[place] ISLANDER>60Normal>=60[facility] Southment on above:Performed By: #### CO2, CL, BUN, CREA, URIC, K, CA, NA #### [facility] [address] [place] [address] Dr. Neil DoanGFR-NON AF [place]ER>60Normal>=60[facility] on above:Performed By: #### CO2, CL, BUN, CREA, URIC, K, CA, NA #### [facility] [address] [place] [address] Dr. Neil Chirinos 43-29-2336Blbdcp [Moles/Vol]139 mmol/ERhjdlu062-828Yjk [facility] on above:Performed By: #### CO2, CL, BUN, CREA, URIC, K, CA, NA #### [facility] [address] [place] [address] Dr. Neil KrishnamurthyPOTASSIUMon 23-02-4135Gxirxdvhk [Moles/Vol]4.1 mmol/LNormal 3.5-5.1The [facility] CenterComment on above:Performed By: #### CO2, CL, BUN, CREA, URIC, K, CA, NA #### [facility] [address] [place] [address] Dr. Neil Rojas 24 HR URINEon 47-88-8168WR, 24 HR UR211 mmol/24 hrNormal 40-220The [facility] CenterComment on above:Performed By: #### CO2, CL, BUN, CREA, URIC, K, CA, NA #### [facility] [address] [place] [address] Dr. Neil Banuelosum (U) [Moles/Vol]103 mmol/LCritically xelw54-28Rve [facility] CenterComment on above:Performed By: #### CO2, CL, BUN, CREA, URIC, K, CA, NA #### [facility] [address] [place] [address] Dr. Neil KrishnamurthyURIC ACID SERUMon 18-46-6406Btdhh [Mass/Vol]5.0 mg/dLNormal 2.6-6.0The [facility] CenterComment on above:Performed By: #### CO2, CL, BUN, CREA, URIC, K, CA, NA #### [facility] [address] [place] [address] Dr. Trejo ChangECHOCARDIO M/2D COMPLETEon 73-91-7576IFYUZBUJYK M/2D COMPLETE Patient: LUL PELAEZ Exam Date: 11/17/2022 : 1985 Gender:F Ordering : DR KIRBY ALBERTO . Admission #: [id number] Family : Order #: [id number] CLICK HERE TO VIEW EXAM ECHOCARDIOGRAM REPORT [...] by: Jon Onofre M.D. on 11/18/2022 at 09:50City HospitalUS PELVIS AND TRANSVAGon 39-31-2608SH PELVIS AND TRANSVAGEXAMINATION: US PELVIS AND TRANSVAG HISTORY: Pelvic and [...] Electronically authenticated by: RIC GURROLA Date: 2022-11-01 07:20City HospitalXR RIBS RT PA Karl 87-30-5394QT RIBS RT PA CHEXAMINATION: XR RIBS RT PA CH HISTORY: pain COMPARISON: 10/18/2021 FINDINGS: LUNGS: No significant pulmonary parenchymal abnormalities. PLEURA: No pneumothorax, effusion, or pleural thickening. MEDIASTINUM: No visible mass or adenopathy. CARDIAC: No cardiomegaly or cardiac silhouette abnormality. RIBS: No acute rib fracture OTHER: Degenerative spondylosis of the spine. IMPRESSION: Clear lungs No acute rib fracture Electronically authenticated by: RIC GURROLA Date: 2022-11-01 07:12[facility] HospitalXR TSPINE MIN 4 VIEWSon 77-67-4599BP TSPINE MIN 4 VIEWS EXAMINATION: XR TSPINE [...] Electronically authenticated by: RIC GURROLA Date: 2022-11-01 07:09City HospitalCREATININEon 47-25-4233Psqlqndoaq [Mass/Vol]0.91 mg/dLNormal 0.55-1.02[facility] Southment on above:Performed By: #### OX24HR #### [facility] [address] [place] [address] Dr. Neil DoanGFR-AF [place]>60Normal>=60The [facility] on above:Performed By: #### OX24HR #### [facility] [address] [place] [address] Dr. Neil DoanGFR-NON AF [place]>60Normal>=60The [facility] on above:Performed By: #### OX24HR #### [facility] [address] [place] [address] Dr. Neil KrishnamurthyXR IVPon 15-03-3462EV IVPEXAMINATION: XR IVP HISTORY: Kidney stone COMPARISON: No relevant comparison available. TECHNIQUE: After obtaining patient consent a clinical studies specialist image was obtained followed by injection of [...] Electronically authenticated by: RIC GURROLA Date: 2022-10-12 09:48NoUC [facility] HospitalXR KUB 1 VIEWon 29-52-7060XL KUB 1 VIEWEXAMINATION: XR KUB 1 VIEW HISTORY: Kidney stone [...] Electronically authenticated by: RIC GURROLA Date: 2022-10-05 07:35City HospitalCOVID/FLU RT-PCRon 04-28-9359DSAO-CoV-2 (COVID-19) RNA BRANDIE+probe Ql (Unsp spec)NegativeSwengel [employer] Other COVID/FLU RT-PCRNegativeNodigedu Other XR KUB 1 VIEWon 55-56-8329YJ KUB 1 VIEWEXAMINATION: XR KUB 1 VIEW HISTORY: Abdominal pain COMPARISON: No relevant comparison available. FINDINGS: KIDNEY/URETER - RIGHT: Nephrolithiasis KIDNEY/URETER - LEFT: Nephrolithiasis PELVIS: No visible ureteral calcifications. Any visible calcifications favor phleboliths. BOWEL: No abnormal dilation or deviation. BONES: No acute abnormality. OTHER: Negative. No abnormal gaseous collections. IMPRESSION: Bilateral nephrolithiasis Electronically authenticated by: RIC GURROLA Date: 2022-08-30 07:28City HospitalCBC AUTO DIFFon 67-19-2275XYNN #0.0 103/ulNormal0.0-0.1The [facility] CenterComment on above:Performed By: #### VAGINT #### [facility] [address] [place] [address] [address] Neil Villarrealsophils/100 WBC (Bld)0.5 %Normal0.2-2.0The [facility] Comment on above:Performed By: #### VAGINT #### [facility] [address] [place] [address] Dr. Neil Pineda #0.2 103/ulNormal0.0-0.7The [facility] CenterComment on above: Performed By: #### VAGINT #### [facility] [address] [place] [address] Dr. Neil Doanosinophils/100 WBC (Bld)1.9 %Normal0.9-7.0The [facility] Comment on above:Performed By: #### VAGINT #### [facility] [address] [place] [address] Dr. Neil Doanrythrocyte distribution width (RBC) [Ratio]11.7 %Lmhfib98.0-15.0 [facility] CenterComment on above:Performed By: #### VAGINT #### [facility] [address] [place] [address] Dr. Neil KrishnamurthyHematocrit (Bld) [Volume fraction]41.1 %Vqafss55.0-48.0The [facility] CenterComment on above:Performed By: #### VAGINT #### [facility] [address] [place] [address] Dr. Neil KrishnamurthyHemoglobin (Bld) [Mass/Vol]13.7 g/qERqglib95.0-16.0The [facility] CenterComment on above:Performed By: #### VAGINT #### [facility] [address] [place] [address] Dr. Neil Zuleta #0.03 10e3/ulNormal0.00-0.03The [facility] CenterComment on above:Performed By: #### VAGINT #### [facility] [address] [place] [address] Dr. Neil Zuleta %0.4 %Normal0.0-0.5The [facility] CenterComment on above: Performed By: #### VAGINT #### [facility] [address] [place] [address] Dr. Neil Velasco #2.8 103/ulNormal1.2-3.8The [facility] CenterComment on above:Performed By: #### VAGINT #### [facility] [address] [place] [address] Dr. Neil Mckeonmphocytes/100 WBC (Bld)32.9 %Rhnqny51.5-60.0The [facility] CenterComment on above:Performed By: #### VAGINT #### [facility] [address] [place] [address] Dr. Neil Lopez DIFF REQNONormalThe [facility] CenterComment on above: Performed By: #### VAGINT #### [facility] [address] [place] [address] Dr. Neil Dowling (RBC) [Entitic mass]30.4 acIfnmvu75.7-34.0The [facility] CenterComment on above:Performed By: #### VAGINT #### [facility] [address] [place] [address] Dr. Neil Dowling (RBC) [Mass/Vol]33.3 g/pVQeywfp29.9-35.2The [facility] CenterComment on above:Performed By: #### VAGINT #### [facility] [address] [place] [address] Dr. Neil Dowling (RBC) [Entitic vol]91.3 xPEieand68.0-99.0The [facility] CenterComment on above:Performed By: #### VAGINT #### [facility] [address] [place] [address] Dr. Neil Walter #0.7 103/ulNormal0.3-0.8The [facility] CenterComment on above:Performed By: #### VAGINT #### [facility] [address] [place] [address] Dr. Neil Rosarioocytes/100 WBC (Bld)8.0 %Normal1.7-12.0The [facility] Comment on above:Performed By: #### VAGINT #### [facility] [address] [place] [address] Dr. Neil Brandon #4.8 103/ulNormal1.4-6.5The [facility] CenterComment on above:Performed By: #### VAGINT #### [facility] [address] [place] [address] Dr. Neil Santosutrophils/100 WBC (Bld)56.3 %Aupgdw94.0-75.0The [facility] CenterComment on above:Performed By: #### VAGINT #### [facility] [address] [place] [address] Dr. Neil KrishnamurthyPlatelet mean volume (Bld) [Entitic vol]11.0 fLNormal9.5-13.5The [facility] CenterComment on above:Performed By: #### VAGINT #### [facility] [address] [place] [address] Dr. Neil KrishnamurthyPLT242 103/vqEdwsec444-886Nrw [facility] CenterComment on above: Performed By: #### VAGINT #### [facility] [address] [place] [address] Dr. Neil KrishnamurthyRBC4.50 106/ulNormal4.20-5.40The [facility] CenterComselect [facility] on above:Performed By: #### VAGINT #### [facility] [address] [place] [address] Dr. Neil KrishnamurthyWBC8.5 103/ulNormal4.0-11.0Mary Rutan HospitalComment on above: Performed By: #### VAGINT #### [facility] [address] [place] [address] Dr. Neil KrishnamurthyGLYCOHEMOGLOBIN A1Con 62-37-8666TGW RECOMMENDATIONSEE BELOWNormTriHealth Bethesda Butler HospitalComselect specialty hospital[facility] on above:Result Comment: ADA RECOMMENDED LIMIT 4.0 - 6.0 ADA THERAPEUTIC TARGET < 7.0 ACTION SUGGESTED > 7.0Performed By: #### VAGINT #### [facility] [address] [place] [address] Dr. Neil KrishnamurthyGlucose [Mass/Vol]97 mg/dLNormalThOhioHealthComment on above:Performed By: #### VAGINT #### [facility] [address] [address] [address] Neil KrishnamurthyHbA1c (Bld) [Mass fraction]5.0 %Normal4.5-6.2The [facility] CenterComment on above:Performed By: #### VAGINT #### [facility] [address] [place] [address] Dr. Neil KrishnamurthyLIPID PROFILEon 71-32-5368OXAR-HDL RATIO NORMSEE BELOWNoUC West Chester HospitalComment on above:Result Comment: 3.3 - 4.4 LOW RISK 4.4 - 7.1 AVERAGE RISK 7.1 - 11.0 MODERATE RISK >11.0 HIGH RISKPerformed By: #### OX24HR #### [facility] [address] [place] [address] Dr. Neil KrishnamurthyCholesterol [Mass/Vol]157 mg/dLNormal<=200The [facility] Comment on above:Performed By: #### OX24HR #### [facility] [address] [place] [address] Dr. Neil KrishnamurthyCholesterol in HDL [Mass/Vol]50 mg/yDYkkflh05-33Bde [facility] CenterComment on above:Performed By: #### OX24HR #### [facility] [address] [place] [address] Dr. Neil KrishnamurthyCholesterol in LDL [Mass/Vol]79.4 mg/dLCity HospitalComment on above:Performed By: #### OX24HR #### [facility] [address] [place] [address] Dr. Neil Jhaveriesterdunia.total/Cholesterol in HDL [Mass ratio]3.1 {ratio} NormalThe [facility] CenterComment on above:Performed By: #### OX24HR #### [facility] [address] [place] [address] Dr. Neil KrishnamurthyHDL NORMAL> or = 60 mg/dl - LOW CARDIOVASCULAR RISK <40 mg/dl - HIGH CARDIOVASCULAR RISKCity HospitalComment on above:Performed By: #### OX24HR #### [facility] [address] [place] [address] Dr. Neil Harris CALC NORMALSEE BELOWNoUC West Chester HospitalComment on above:Result Comment: <100 mg/dl OPTIMAL 100 - 129 mg/dl NEAR OR ABOVE OPTIMAL 130 - 159 mg/dl BORDERLINE HIGH 160 - 189 mg/dl HIGH >190 mg/dl VERY HIGH Performed By: #### OX24HR #### [facility] [address] [place] [address] Dr. Neil KrishnamurthyTriglyceride [Mass/Vol]138 mg/dLNormal<=150The [facility] Comment on above:Performed By: #### OX24HR #### [facility] [address] [place] [address] Dr. Neil KuoLDL CALC27.6 mg/dLNoUC West Chester HospitalComment on above: Performed By: #### OX24HR #### [facility] [address] [place] [address] Dr. Neil Andres PROFILEon 75-47-0810Hvncjii [Mass/Vol]3.5 g/dLNormal3.4-5.0 The [facility] CenterComment on above:Performed By: #### OX24HR #### [facility] [address] [place] [address] Dr. Neil KrishnamurthyAlbumin/Globulin [Mass ratio]1.0 {ratio}NormalThe [facility] Health CenterComment on above:Performed By: #### OX24HR #### [facility] [address] [place] [address] Dr. Neil Sparks [Catalytic activity/Vol]83 U/YSatkce71-364Xyg [facility] CenterComment on above:Performed By: #### OX24HR #### [facility] [address] [place] [address] Dr. Neil Beth [Catalytic activity/Vol]19 U/CQjvsjh82-75Nod [facility] CenterComment on above:Performed By: #### OX24HR #### [facility] [address] [place] [address] Dr. Yilan ChangAST [Catalytic activity/Vol]15 U/QRthpun61-87CfwMary Rutan HospitalComment on above:Performed By: #### OX24HR #### [facility] [address] [place] [address] Dr. Neil RuedaI, CONJUGATED0.1 mg/dLNormal0.0-0.2[facility] Comment on above:Performed By: #### OX24HR #### [facility] [address] [place] [address] Dr. Neil Ruedairubin [Mass/Vol]0.6 mg/dLNormal0.2-1.0[facility] Comment on above:Performed By: #### OX24HR #### [facility] [address] [place] [address] Dr. Neil KrishnamurthyGlobulin (S) [Mass/Vol]3.5 g/dLNormalThe [facility] CenterComment on above:Performed By: #### OX24HR #### [facility] [address] [place] [address] Dr. Neil KrishnamurthyProtein [Mass/Vol]7.0 g/dLNormal6.4-8.2[facility] Comment on above:Performed By: #### OX24HR #### [facility] [address] [place] [address] Dr. Neil ZimmermanF CHEM 8 (BAS METB)on 85-07-3768Ciuqc gap [Moles/Vol]10.8 mmol/LNormalMary Rutan HospitalComment on above:Performed By: #### OX24HR #### [facility] [address] [place] [address] Dr. Neil KrishnamurthyCalcium [Mass/Vol]8.2 mg/dLCritically low8.5-10.1Mary Rutan HospitalComment on above:Performed By: #### OX24HR #### [facility] [address] [place] [address] Dr. Neil KrishnamurthyChloride [Moles/Vol]105 mmol/EWdmegr82-723TkfMary Rutan Hospital Comment on above:Performed By: #### OX24HR #### [facility] [address] [address] [address] Neil KrishnamurthyCO2 [Moles/Vol]24.5 mmol/XQsrbjt71.0-32.0The [facility] Comment on above:Performed By: #### OX24HR #### [facility] [address] [address] [address] Neil KrishnamurthyCreatinine [Mass/Vol]0.74 mg/dLNormal0.55-1.02The [facility] CenterComment on above:Performed By: #### OX24HR #### [facility] [address] [address] [address] Neil DoanGFR-AF BRITISH VIRGIN ISLANDER>60Normal>=60The [facility] CenterComment on above:Performed By: #### OX24HR #### [facility] [address] [place] [address] Dr. Neil DoanGFR-NON AF BRITISH VIRGIN ISLANDER>60Normal>=60The [facility] CenterComment on above:Performed By: #### OX24HR #### [facility] [address] [address] [address] Neil KrishnamurthyGlucose [Mass/Vol]106 mg/zNIxuylq06-774Vhr [facility] Comment on above:Performed By: #### OX24HR #### [facility] [address] [address] [address] Neil KrishnamurthyPotassium [Moles/Vol]3.5 mmol/LNormal3.5-5.1The [facility] Comment on above:Performed By: #### OX24HR #### [facility] [address] [address] [address] Neil KrishnamurthySodium [Moles/Vol]137 mmol/KHpozdk467-786Cgx [facility] Comment on above:Performed By: #### OX24HR #### [facility] [address] [address] [address] Neil KrishnamurthyUrea nitrogen [Mass/Vol]11.0 mg/dLNormal7.0-18.0The [facility] CenterComment on above:Performed By: #### OX24HR #### [facility] [address] [place] [address] Dr. Neil KrishnamurthyUrea nitrogen/Creatinine [Mass ratio]14.8 mg/mgCity HospitalComment on above:Performed By: #### OX24HR #### [facility] [address] [place] [address] Dr. Neil MedinaHoannalisa 01-25-0494ZET3.166 uIU/mLNormal0.358-3.740Mary Rutan HospitalComment on above:Performed By: #### OX24HR #### [facility] [address] [place] [address] Dr. Neil KrishnamurthyVITAMIN D 25 OHon 28-98-1106CUW D 25-OH23.8 ng/mLNormalMary Rutan HospitalComment on above:Performed By: #### VITAD #### [facility] [address] [place] [address] Dr. Neil Rose D RANGESSEE BELOWCity HospitalComment on above: Result Comment: <20 ng/mL Vit D deficient 20 - <30 ng/mL Vit D insufficient 30 - 100 ng/mL Vit D sufficient >100 ng/mL Potential ToxicityPerformed By: #### VITAD #### [facility] [address] [place] [address] Dr. Neil KrishnamurthyMG MAMM SCREEN 3D MARKEL CADon [id number] MAMM SCREEN 3D MARKEL CAD Patient: LUL PELAEZ Exam Date: 06/23/2022 : 1985 Gender:F Ordering : DR KATHY BARRAGAN . Admission #: [id number] Family : Order #: [id number] CLICK HERE TO VIEW EXAM RADIOLOGY REPORT [...] cervical cancer at age 31. LOCATION: [facility] BREAST COMPOSITION: Heterogeneously dense,which may obscure [...] by: Ric Gurrola MD on 06/23/2022 at 11:17[facility] HospitalOG PANEL 2: 31 to 66on 06-16-2022..NormalThe [facility] on above:Result Comment: Performed at: WBPerformed By: #### CO2, CL, BUN, CREA, URIC, K, CA, NA #### [facility] [address] [place] [address] Dr. Neil Kitchen Gdln ACOG Gjhserh98-35KzpngeIbnUC West Chester HospitalComment on above:Performed By: #### CO2, CL, BUN, CREA, URIC, K, CA, NA #### [facility] [address] [place] [address] Dr. Neil KrishnamurthyDIAGNOSIS:CommentGrand Lake Joint Township District Memorial Hospital on above: Result Comment: NEGATIVE FOR INTRAEPITHELIAL LESION OR MALIGNANCY. Performed at: WBPerformed By: #### CO2, CL, BUN, CREA, URIC, K, CA, NA #### [facility] [address] [place] [address] Dr. Neil KrishnamurthyHPV AptimaNegativeNormalNegativeSouthview Medical Center on above:Result Comment: This nucleic acid amplification test detects fourteen high-risk HPV types (16,18,31,33,35,39,45,51,52,56,58,59,66,68) without differentiation. Performed at: =GPerformed By: #### CO2, CL, BUN, CREA, URIC, K, CA, NA #### [facility] [address] [place] [address] Dr. Neil KrishnamurthyMethodology:CommentNoWhite Hospital on above: Result Comment: This liquid based ThinPrep(R) pap test was screened with the use of an image guided system. Performed at: WBPerformed By: #### CO2, CL, BUN, CREA, URIC, K, CA, NA #### [facility] [address] [place] [address] Dr. Neil KrishnamurthyNote:CommentGrand Lake Joint Township District Memorial Hospital on above:Result Comment: The Pap smear is a screening test designed to aid in the detection of premalignant and malignant conditions of the uterine cervix. It is not a diagnostic procedure and should not be used as the sole means of detecting cervical cancer. Both false-positive and false-negative reports do occur. . Performed at: WBPerformed By: #### CO2, CL, BUN, CREA, URIC, K, CA, NA #### [facility] [address] [place] [address] Dr. Neil KrishnamurthyPerformed by:CommentGrand Lake Joint Township District Memorial Hospital on above: Result Comment: [place], [employer] ([employer]) Performed at: WBPerformed By: #### CO2, CL, BUN, CREA, URIC, K, CA, NA #### [facility] [address] [place] [address] Dr. Neil Alcantara adequacy:CommentGrand Lake Joint Township District Memorial Hospital on above:Result Comment: Satisfactory for evaluation. Endocervical and/or squamous metaplastic cells (endocervical component) are present. Performed at: WBPerformed By: #### CO2, CL, BUN, CREA, URIC, K, CA, NA #### [facility] [address] [place] [address] Dr. Neil KrishnamurthyVAGINITIS/VAGINOSIS DNA PROBEon 93-32-6341Erjwlzc speciesNegative NormalNegativeSouthview Medical Center on above:Performed By: #### VAGINT #### [facility] [address] [place] [address] Dr. Neil Hardenerellmiles vaginalisPositiveAbnormalNegativeThe [facility] CenterComment on above:Performed By: #### VAGINT #### [facility] [address] [address] [address] Neil Martines vaginalisNegativeNormalNegativeThe [facility] Comment on above:Performed By: #### VAGINT #### [facility] [address] [place], [place] [address] Dr. Neil Guevara Quick Testingon 26-98-3963MnyxchKtrqoyblPhgvg [employer] Other XR ABDOMEN LIMITED (KUB)on 54-22-4941LE ABDOMEN LIMITED (KUB)EXAMINATION:SUPINE VIEW(S) OF THE YNOYQAV9707/08/2017 1:38 pmCOMPARISON:October 19, 2010HISTORY:ORDERING SYSTEM PROVIDED HISTORY: Kidney stonesTECHNOLOGIST PROVIDED HISTORY:Reason for exam:->kidney stonesOrdering Physician Provided Reason for Exam: bilat kidney stonesAcuity: AcuteType of Exam: InitialFINDINGS:Surgical clips in the gallbladder fossa prior cholecystectomy. There are noabnormal calcifications seen overlying the kidneys along the course of theureters. The osseous structures appear unremarkable.IMPRESSION: No acute abnormality.Interpreted by:TIMBO Menendezigned by:Raheel Morales MD07/08/17Final resultNormalMercy Marion Hospital Vital Signs Date TimeVital SignValuePerforming VkaghadpwBjnghqky37-75-1840 15:31-0400Body yjgcti673.4 cmPHYSICIAN [facility]09-[facility]2025 15:31-0400Body mass index (BMI) [Ratio]42.5 kg/q5HLWUZGGSR [facility]09-11-2025 15:31-0400Body yhgmssvwdwn77.5 [degF]PHYSICIAN [facility]09-11-2025 15:31-0400Body gpumec78.88 kgPHYSICIAN [facility]09-11-2025 15:31-0400 Diastolic blood cpisvgql21 mm[Hg]PHYSICIAN [facility]09-11-2025 15:31-0400Heart rate69 /minPHYSICIAN [facility]09-11-2025 15:31-0400Respiratory rate16 /minPHYSICIAN [facility]09-11-2025 15:31-5684RsJ6% (BldA) [Mass fraction]99 %PHYSICIAN NO [facility]09-11-2025 15:31-0400Systolic blood uodbqitg438 mm[Hg]PHYSICIAN [facility]07-08-2025 14:42-0400Body .4 cmKirby Alberto MD Work Phone: [facility] HospitalCyjncekbrg41-30-1999 14:42-0400Body mass index (BMI) [Ratio]42.77 kg/m2Kirby Alberto MD Work Phone: [facility] HospitalTmxqkeqytj23-95-6885 14:42-0400Body temperature 97.11 [degF]Kirby Alberto MD Work Phone: [facility] HospitalBqwybjibfk51-75-5620 14:42-0400Body ymvrid85.34 kgKirby Alberto MD Work Phone: [facility] HospitalMjrzwhxymd05-32-6922 14:42-0400Diastolic blood pooydwbh95 mm[Hg]Kirby Alberto MD Work Phone: [facility] HospitalUtrgfwkwyv02-63-3573 14:42-0400Heart ljah531 /min Kirby Alberto MD Work Phone: [facility] HospitalFfhhfbpmpr56-54-2398 14:42-0400Respiratory rate20 /minKirby Alberto MD Work Phone: [facility] HospitalVycesbipib85-29-2416 14:42-1505EsM2% (BldA) [Mass fraction]99 %Kirby Alberto MD Work Phone: [facility] HospitalEfadkmqyhn66-49-8145 14:42-0400Systolic blood rrfirbxb224 mm[Hg]Kirby Alberto MD Work Phone: [facility] HospitalRhchfztpfr27-40-5529 15:48-0500Body mass index (BMI) [Ratio]45.99 kg/m2Kirby Alberto MD Work Phone: [facility] HospitalCdmaqptmkd12-44-5675 15:48-0500Body temperature 98.29 [degF]Kirby Alberto MD Work Phone: [facility] HospitalAqtuodscub47-30-7601 15:48-0500Body arpfrp423.81 kgKirby Alberto MD Work Phone: [facility] HospitalYglonkbrid18-61-2998 15:48-0500Diastolic blood oahkncmj83 mm[Hg]Kirby Alberto MD Work Phone: [facility] HospitalVmsupokjqk50-51-9089 15:48-0500Heart rate97 /min Kirby Alberto MD Work Phone: [facility] HospitalRbeshmenzn83-67-9900 15:48-7207KcL7% (BldA) [Mass fraction]97 %Kirby Alberto MD Work Phone: [facility] HospitalVrybhvwswq05-89-3659 15:48-0500Systolic blood wpzakncw152 mm[Hg]Kirby Alberto MD Work Phone: [facility] HospitalLzjihiqkcg59-11-2103 15:48-0500Blood Pressure LocationPatrick JERRY [facility]11-11-2024 15:48-0500Diastolic blood mm[Hg]Anna JERRY [facility]11-11-2024 15:48-0500Heart rate79 /minPatrick JERRY [facility]11-11-2024 15:48-0500Respiratory rate18 /minPatrick JERRY [facility]11-11-2024 15:48-0500Systolic blood hhzlrbyh857 mm[Hg]Anna JERRY [facility]10-17-2024 11:45-0400Body ghnfti598.4 cmKirby Alberto MD Work Phone: [facility] HospitalQpglyvpsxv04-96-8295 11:45-0400Body mass index (BMI) [Ratio]44.72 kg/m2Kirby Alberto MD Work Phone: [facility] HospitalVzfjfnmgiy95-48-2913 11:45-0400Body temperature 97.81 [degF]Kirby Alberto MD Work Phone: [phone] [place], [place] [address]Bblgocdqdd48-08-4595 11:45-0400Body kzyteq038.87 kgKirby Alberto MD Work Phone: [phone] [address]Duxzftzkil66-30-8949 11:45-0400Diastolic blood prgyyspx28 mm[Hg]Kirby Alberto MD Work Phone: [phone] [place], [place] [address]Fbweolbuil40-27-1827 11:45-0400Heart rate97 /min Kirby Alberto MD Work Phone: [phone])[address] [place], [place] [address]Etpadtoekc05-34-1201 11:45-0400Respiratory rate20 /minKirby Alberto MD Work Phone: [address] [address]Tpmjzyuabk63-50-6008 11:45-6340AyU5% (BldA) [Mass fraction]98 %Kirby Alberto MD Work Phone: [facility] HospitalKhpxvjwdfz85-80-0902 11:45-0400Systolic blood sjrvdyjj784 mm[Hg]Kirby Alberto MD Work Phone: [facility] HospitalHwgpzxsfmy35-68-1271 15:15-0400Body dabnkw541.4 cmKirby Alberto MD Work Phone: [address] [address]Wmdgvwtqee06-71-2984 15:15-0400Body mass index (BMI) [Ratio]45.5 kg/m2Kirby Alberto MD Work Phone: [facility] HospitalPgqktahbpo03-40-9383 15:15-0400Body temperature 97.81 [degF]Kirby Alberto MD Work Phone: [address] [address]Ghmiactbef80-59-8397 15:15-0400Body xaukob102.69 kgKirby Alberto MD Work Phone: [facility] HospitalLvguihgjmk40-21-1152 15:15-0400Diastolic blood mm[Hg]Kirby Alberto MD Work Phone: [facility] HospitalMybjzepvoc84-80-8215 15:15-0400Heart gldk595 /min Kirby Alberto MD Work Phone: [facility] HospitalIrvgfegihj96-46-3773 15:15-0400Respiratory rate20 /minKirby Alberto MD Work Phone: [facility] HospitalDmidmznobk76-19-8439 15:15-7640QaW6% (BldA) [Mass fraction]98 %Kirby Alberto MD Work Phone: [facility] HospitalIcrjmaevsh17-11-0416 15:15-0400Systolic blood aebpgave659 mm[Hg]Kirby Alberto MD Work Phone: [facility] HospitalWwpczsbcyv06-66-4548 10:30-0400Body yukqte997.4 cmGorge YEE-C Work Phone: [facility] [place]08-26-2024 10:30-0400 Body mass index (BMI) [Ratio]42.97 kg/d5QmmoxGorge Weldon PA-C Work Phone: [facility] [place]08-26-2024 10:30-0400 Body rqgcwsuyvvn04.01 [degF]Gorge YEE-C Work Phone: [facility] [place]08-26-2024 10:30-0400 Body puwpua39.79 kgGorge Weldon PA-C Work Phone: [facility] [place]08-19-2024 10:33-0400 Diastolic blood zqymaqvp24 mm[Hg]Jarred Phillips MD Work Phone: [facility] [place]08-19-2024 10:33-0400 Heart rate65 /minJarred Phillips MD Work Phone: 1()[address] [place], [place] 9605508-19-2024 10:33-0400 Respiratory rate16 /Stone Phillips MD Work Phone: 1)[address] [place], [place] 9605508-19-2024 10:33-0400 SaO2% (BldA) [Mass fraction]98 %Jarred Phillips MD Work Phone: 1()0-[address] [place], [place] 9605508-19-2024 10:33-0400 Systolic blood spmlhboz413 mm[Hg]Jarred Phillips MD Work Phone: 1()[address]08-19-2024 09:33-0400 Body kghofvrisjg50.8 [degF]Jarred Phillips MD Work Phone: 1()[address] [place], [place] 9605508-19-2024 06:50-0400 Body .4 Gómez Phillips MD Work Phone: 1)3-[address] [place], [place] 9605508-19-2024 06:50-0400 Body mass index (BMI) [Ratio]42.45 kg/a4XpjdiJarred Phillips MD Work Phone: [address] [place], [place] 9605508-19-2024 06:50-0400 Body .6 kgJarred Phillips MD Work Phone: 1)461-[address] [place], [place] 9605506-27-2024 12:31-0400 Body kswoqj251.4 Gómez Phillips MD Work Phone: 1)886-[address] [place], [place] 9605506-27-2024 12:31-0400 Body mass index (BMI) [Ratio]42.46 kg/s0AvdpmJarred Phillips MD Work Phone: 1)155-[address] [place], [place] 9605506-27-2024 12:31-0400 Body mxgdeh91.61 kgJarred Phillips MD Work Phone: 1([phone] [place], [place] 9605501-04-2024 12:00-0500 Body mrblyc978.4 Mckayla Ma Other [phone] Other 01-04-2024 12:00-0500Body mass index (BMI) [Ratio] 41.87 kg/b6HgcjrElisabeth Ma Other [employer] Other 01-04-2024 12:00-0500Body zdoawuigcfz30.7 [degF]Elisabeth Ma Other [employer] Other 01-04-2024 12:00-0500Body pwuebw51.25 kgElisabeth Ma Other [employer] Other 01-04-2024 12:00-0500Diastolic blood mjcolawd78 mm[Hg] Elisabeth Ma Other [facility] Other 01-04-2024 12:00-0500Respiratory rate18 /minElisabeth Ma Other [employer] Other 01-04-2024 12:00-4786QrT1% (BldA) [Mass fraction]99 % Elisabeth Ma Other [facility] Other 01-04-2024 12:00-0500Systolic blood itugqhan228 mm[Hg] Elisabeth Ma Other [facility] Other 06-18-2023 13:50-0400Body .4 Tank Soler Other [employer] Other 06-18-2023 13:50-0400Body mass index (BMI) [Ratio]42.3 kg/v9YghbsbLeana Soler Other [facility] Other 06-18-2023 13:50-0400Body lbdrdijdxct85.2 [degF]Leana Soler Other [facility] Other 06-18-2023 13:50-0400Body .25 kgLeana Karlene Other [employer] Other 06-18-2023 13:50-0400Diastolic blood smvrzyps80 mm[Hg] Leana Soler Other [employer] Other 06-18-2023 13:50-0400Respiratory rate18 /minLeana Karlene Other [facility] Other 06-18-2023 13:50-6215VeK5% (BldA) [Mass fraction]100 % Leana Soler Other [facility] Other 06-18-2023 13:50-0400Systolic blood owlenxgn200 mm[Hg] Leana Karlene Other [facility] Other 12-14-2022 17:15-0500Body nsgefo437.4 cmPamela Sara Other [employer] Other 12-14-2022 17:15-0500Body mass index (BMI) [Ratio] 41.98 kg/y0Kclbxl Sara Other [employer] Other 12-14-2022 17:15-0500Body drtghhpolow92.4 [degF]Jennyfer Ruiz Other [employer] Other 12-14-2022 17:15-0500Body .52 kgPajenny Ruiz Other [facility] Other 12-14-2022 17:15-0500Respiratory rate18 /minJennyfer Ruiz Other [facility] Other 12-14-2022 17:15-6251AfL9% (BldA) [Mass fraction]99 % Jennyfer Ruiz Other [facility] Other 08-04-2022 14:30-0400Body ekswmw409.4 cmStepizabelallen Angel Other [facility] Other 08-04-2022 14:30-0400Body mass index (BMI) [Ratio] 40.42 kg/z1Svihygrdfmihai Ortiz Other [facility] Other 08-04-2022 14:30-0400Body .9 kgStepmihai Ortiz Other [facility] Other 08-04-2022 14:30-0400Diastolic blood wpvfztoz51 mm[Hg] Jesseniamihai Ortiz Other [facility] Other 08-04-2022 14:30-0400Respiratory rate18 /minStepmihai Ortiz Other [facility] Other 08-04-2022 14:30-1013TeL5% (BldA) [Mass fraction]100 % Jesseniamihai Ortiz Other [facility] Other 08-04-2022 14:30-0400Systolic blood mm[Hg] Jesseniamihai Ortiz Other [facility] [employer] Other 11-03-2021 11:00-0400Body wqinkz352.4 Erin Ruiz Other [facility] Other 11-03-2021 11:00-0400Body mass index (BMI) [Ratio] 38.08 kg/r4AywfigJennyfer Ruiz Other [facility] Other 11-03-2021 11:00-0400Body rcoqixnyaui73.2 [degF]Jennyfer Maravillamond Other [facility] Other 11-03-2021 11:00-0400Body iekorl90.45 kgJennyfer Ruiz Other [facility] Other 11-03-2021 11:00-0400Respiratory rate18 /minJennyfer Ruiz Other [employer] Other 11-03-2021 11:00-6947PpZ7% (BldA) [Mass fraction]99 % Jennyfer Ruiz Other [employer] Other Encounters Encounter DateEncounter TypeCare ProviderFacilityStart: 45-33-1232bcljscukxd Anna R WATERSFacility:EU BellevueStart: 05-30-2025 End: 38-54-7109loiigykrwdZWKJPVFDC NO [facility] Work Phone: Start: 05-30-2025 End: 56-85-0141Vvkmimr encounter procedureKirby Alberto MD-[facility] Work Phone: Start: 04-26-2025 End: 23-67-7583UjiourIcmj Naderer MD Work Phone: [facility] CWM FMComment on above:Obstructive sleep apnea (adult) (pediatric)Start: 03-26-2025 End: 11-56-7283Zozdvb outpatient visit 25 minutesKirby Alberto MD Work Phone: [facility] CWM FMComment on above:Migraine without aura and without status migrainosus, not intractable (Primary Dx); Sleep apnea with hypersomnolence; Bilateral leg edema; Generalized anxiety disorder ; Insomnia due to mental conditionStart: 03-26-2025 End: 50-65-2655Vvzmxw Jackie Alberto MD Work Phone: [facility] FMStart: 03-26-2025 End: 14-09-4044Dtderz Jackie Alberto MD Work Phone: [facility] FMStart: 03-26-2025 End: 87-21-7124JeqtcbGufd Naderer MD Work Phone: [facility] CWM FMComment on above:Obstructive sleep apnea (adult) (pediatric)Start: 01-31-2025 End: 31-53-3694QqmpmpTuzw Naderer MD Work Phone: [facility] CWM FMComment on above:Obstructive sleep apnea (adult) (pediatric)Start: 01-01-2025 End: 79-23-5865AvvqguJszy Naderer MD Work Phone: [facility] CWM FMComment on above:Migraine without aura and without status migrainosus, not intractable (CMS/HCC); Obstructive sleep apnea (adult) (pediatric)Start: 12-12-2024 End: 40-26-5976Lbempzz encounter procedureNicole Bernardo DO Work Phone: aNA SANDUSKYComment on above:Paresthesia (Primary Dx); Pain in both wristsStart: 12-12-2024 End: 03-18-3286txmgnmbnfnMCWIIY DANNERNot AvailableStart: 12-12-2024 End: 54-30-4196Dswapm flowsheetNicole Bernardo DO Work Phone: aSANDY DORAUSKYStart: 12-12-2024 End: 97-40-9786Fwkqyh flowsheetNicole Bernardo DO Work Phone: aSANDY EVERETTEYStart: 12-05-2024 End: 64-69-5368XrlelqWzvv Naderer MD Work Phone: [facility] CWM FMComment on above:Obstructive sleep apnea (adult) (pediatric)Start: 11-05-2024 End: 93-35-8432GrryzgGpbj Naderer MD Work Phone: [facility] CWM FMComment on above:Obstructive sleep apnea (adult) (pediatric)Start: 10-01-2024 End: 99-90-5745PbxdbbCrwe Naderer MD Work Phone: [facility] CWM FMComment on above:Obstructive sleep apnea (adult) (pediatric)Start: 09-25-2024 End: 74-73-2093Movslz outpatient visit 25 minutesKirby Alberto MD Work Phone: [facility] CWM FMComment on above:Migraine without aura and without status migrainosus, not intractable (CMS/HCC) (Primary Dx); Generalized anxiety disorder (CMS/HCC); Sleep apnea with hypersomnolence; Bilateral leg edema; Class 3 severe obesity due to excess calories with serious comorbidity and body mass index (BMI) of45.0 to 49.9 in adult (CMS/HCC)Start: 09-25-2024 End: 53-76-4213zieaisbttyPZEQ NADERERNot AvailableStart: 09-25-2024 End: 61-72-4241Iwgbykclinton Alberto MD Work Phone: [facility] FMStart: 09-25-2024 End: 20-41-0846Umqmamjason Alberto MD Work Phone: [facility] CWM FMStart: 08-31-2024 End: 19-60-7563Mpxvcpybk Result EncounterGeneric External Data ProviderNOMS External Department UnsolicitedStart: 08-31-2024 End: 93-18-5027Sceypvblh Result EncounterGeneric External Data ProviderNOMS External Department UnsolicitedStart: 08-31-2024 End: 39-12-7808BkkaksHaxk Naderer MD Work Phone: [facility] CWM FMComment on above:Obstructive sleep apnea (adult) (pediatric)Start: 08-24-2024 End: 01-33-2718Upqdtmlvb Result EncounterGeneric External Data ProviderNOMS External Department UnsolicitedStart: 08-24-2024 End: 02-16-1666Fxuookvyn Result EncounterGeneric External Data ProviderNOMS External Department UnsolicitedStart: 08-02-2024 End: 74-63-3633GkneivOvns Naderer MD Work Phone: noms CWM FMComment on above:Obstructive sleep apnea (adult) (pediatric)Start: 07-30-2024 End: 02-70-8986cjvtfmpkhtWsyexmo R WATERSFacility:EU [place]vueStart: 07-30-2024 End: 51-57-4994Ucboaix encounter procedureAnna JERRY [facility] start: 07-20-2024 End: 70-30-3258Hgmidgxrc Result EncounterGeneric External Data ProviderNOMS External Department UnsolicitedStart: 07-20-2024 End: 51-72-0048Hnqbazvjv Result EncounterGeneric External Data ProviderNOMS External Department UnsolicitedStart: 07-05-2024 End: 00-02-6672Bxaquy Jackie Alberto MD Work Phone: [facility] CWM FMStart: 07-05-2024 End: 80-63-7175Qygzabclinton Alberto MD Work Phone: [facility] CWM FMStart: 07-05-2024 End: 28-51-8079Ydvpug outpatient visit 15 minutesKirby Alberto MD Work Phone: [facility] CWM FMComment on above:Acute bronchitis due to other specified organisms (Primary Dx)Start: 07-05-2024 End: 74-94-6100kepnzlrenuISLE NADERERNot AvailableStart: 07-01-2024 End: 60-61-8654Slqrorljn Result EncounterGeneric External Data ProviderNOMS External Department UnsolicitedStart: 07-01-2024 End: 53-39-6875Ueorfjfbm Result EncounterGeneric External Data ProviderNOMS External Department UnsolicitedStart: 06-18-2024 End: 28-05-7188Mtfielcpk Result EncounterGeneric External Data ProviderNOMS External Department UnsolicitedStart: 06-18-2024 End: 22-96-5479Ahkgprghn Result EncounterGeneric External Data ProviderNOMS External Department UnsolicitedStart: 06-18-2024 End: 90-64-4088lmmntlcuepGpvqfmgWillian Cameron MDFacility:PM Boris Start: 06-05-2024 End: 62-55-9700Uwrend outpatient visit 25 [facility] hospitalKirby Alberto MD Work Phone: noms CWM FMComment on above:Obstructive sleep apnea (adult) (pediatric) (Primary Dx); Generalized anxiety disorder (CMS/HCC); Migraine without aura and without status migrainosus, not intractable (CMS/HCC); Bilateral leg edema; Thoracic spondyloarthritisStart: 06-05-2024 End: 92-50-4533TvzjytKzoj Naderer MD Work Phone: noms CWM FMComment on above:Obstructive sleep apnea (adult) (pediatric)Start: 06-04-2024 End: 43-10-1924mtjqfaeanqMzhmczcWillian Cameron MDFacility:PM [place] Start: 05-27-2024 End: 09-11-5751TauddxUrep Naderer MD Work Phone: noMS CWM FMComment on above:Obstructive sleep apnea (adult) (pediatric)Start: 05-14-2024 End: 16-76-2088nuqtovawifHGWCCCentral [facility] AmbulatoryStart: 05-14-2024 End: 76-54-2356Zbzdbh follow up visit related to original Leidaweroannalisa Weldon PA-C Work Phone: uh [facility] CampusComment on above:Deviated nasal septumStart: 05-07-2024 End: 41-78-5494pcydjvqrsuABSUW C [facility] Hospitaltart: 05-07-2024 End: 73-65-9333Dukradcmpo hospital visit by Kylee Phillips MD Work Phone: uh [facility] ORComment on above:Deviated nasal septum (Primary Dx); Sore of lipStart: 04-16-2024 End: 31-84-4675ghfureamzqBsqeqmx Vytautas Giedraitis Facility:[facility] [place] Start: 03-26-2024 End: 32-38-8667ohuwfqbootVGLM NADERERNot AvailableStart: 03-15-2024 End: 05-55-3846Jdlrvf consultation new/estab patient 40 Stone Phillips MD Work Phone: uh [facility] SystemComment on above:Nasal deformity (Primary Dx); Deviated nasal septum; Nasal congestion; Nasal obstruction; Hypertrophy of inferior nasal turbinate; Deviated septum; Facial pressure; Difficulty breathingStart: 03-15-2024 End: 52-26-7614urybpbkixdIWVTL [facility] AmbulatoryStart: 02-21-2024 End: 88-58-5456ybypkqvqteESRPZM H TIMMISNot AvailableStart: 02-17-2024 End: 57-76-2588Pgsgmzsgj Result EncounterHimechelle Morales MD Work Phone: noms External Department UnsolicitedStart: 02-17-2024 End: 20-96-6447Lppfxpmav Result EncounterYovani Morales MD Work Phone: noms External Department UnsolicitedStart: 02-17-2024 End: 98-47-0888Zdvhlpx encounter procedureYovani Morales [facility] Start: 01-16-2024 End: 72-26-9312sdgmdsbhnlLGFLML Gustavo DURANSNot AvailableStart: 12-20-2023 End: 01-42-0332tjijmlqmteANGK NADERERNot AvailableStart: 10-04-2023 End: 07-28-4763yucpqymsjrUTMF NADERERNot AvailableStart: 09-22-2023 End: 36-29-1822ayxbdxnznlIizau Keller Other Jascha [employer] Other Start: 09-22-2023 End: 22-96-1860Leneypzzf Result EncounterGeneric External Data ProviderNOMS External Department UnsolicitedStart: 09-22-2023 End: 39-20-2192Fywoaatsd Result EncounterGeneric External Data ProviderNOMS External Department UnsolicitedStart: 15-64-8164Rsimhc outpatient visit 15 [facility]deStart: 09-05-2023 End: 34-86-5143knklhwcgevTdhnbfm Vytautas Giedraitis MDFacility:PM [place] Start: 08-15-2023 End: 08-63-6537xmqvhflainEsrbzqr Vytautas Giedraitis MDFacility:[facility] [place] Start: 07-05-2023 End: 61-60-3532Swjzheq encounter procedureJENNIFER Genaro CUEVAS [facility] [place] start: 03-06-2023 End: 98-62-7518Ndljtlk encounter procedureKEN Soler Work Phone: [facility] Work Phone: Start: 03-06-2023 End: 56-69-8137qdddwlxndeYordqn M BaileySwengel [employer] Other Start: 57-69-7260Lzkljn outpatient visit 15 minutes Leana KhanjoseFPG Urgent Care ClydeStart: 12-06-2022 End: 58-22-4713qrrygdiwkvMQ ANNA CLARITZA .Facility:R7Jppth: 11-17-2022 End: 30-63-7025qjxgapzithRO KIRBY A NADERERFacility:X3Jxrta: 11-01-2022 End: 02-69-8321dkqmabfsxyWK KIRBY A NADERERFacility:M6Ksavb: 10-30-2022 End: 81-93-5596wtijyvvpoqDD KIRBY A NADERERFacility:C6Ktgdw: 10-12-2022 End: 38-92-4536xdjkxkfefiSA KIRBY A NADERERFacility:M5Wcvfn: 10-04-2022 End: 20-93-9794Ypjivro encounter procedureAnna JERRY [facility] start: 10-02-2022 End: 54-75-3538uchnlravrdYT ANNA JERRY .Facility:Z7Swyqs: 09-01-2022 End: 98-88-8736bseqoyxpyxXzoanu Dymond Other Sw[employer]el [employer] Other Start: 17-56-2474Pvallr outpatient visit 15 minutes Jennyfer SaraFPG Urgent Care ClydeStart: 08-27-2022 End: 64-61-4624hbozofckrkBA RIC Florescility:F5Uldsg: 99-99-7105Zzawbynmc for general adult medical examination without abnormal findingsDR KIRBY CULLENR [facility] Hospitaltart: 07-13-2022 End: 51-21-2231lbvwqsmvroML KIRBY A NADERERFacility:J3Nkbdj: 07-13-2022 End: 73-00-2639Yppexvdft for general adult medical examination without abnormal findingsDR KIRBY Ayala NADERERFacility:N0Idqpt: 06-23-2022 End: 07-01-9135rzybouiubiAG KATHY BARRAGAN .Facility:A7Kkyoz: 06-09-2022 End: 15-12-5349mbewjagapwUZ KATHY BARRAGAN .Facility:Z2Tfnnd: 06-02-2022 End: 79-14-6500hoixladtnmJE DOCTOR MISCFacility:G3Bebte: 04-22-2022 End: 85-33-7924zqrlsfdmdbUnfqadcqw Breault Other [facility] [employer] Other Start: 48-85-7380Mwcfwz outpatient visit 15 minutes Jessenia OrtizFPG Urgent Care ClydeStart: 07-22-2021 End: 85-99-8795oknvfghoxfJvvrup Dymond Other [facility] [employer] Other Start: 24-38-0478Yetnmr outpatient visit 15 minutes Jennyfer RuizFPG Urgent Care ClydeStart: 07-08-2017 End: 91-18-2923QftfmnmgajKHGEAK S [facility] Procedures DateProcedureProcedure DetailPerforming ClinicianStart: 12-12-2024 End: 08-67-8031Jolieb emg ea extremty w/paraspinl area completeNicole Bernardo DO Work Phone: Start: 08-77-6586ERC ELECTROLYTESGeneric External Data ProviderStart: 24-69-8219IT ABDOMEN PELVIS WO/W CONGeneric External Data ProviderStart: 22-11-7705TD LUMBAR SPINE MIN 4VGeneric External Data Provider Start: 08-68-9491Qduopzmzls exam knee complete 4/more viewsGeneric External Data ProviderStart: 75-61-8094DX SACROILIAC JOINTGeneric External Data ProviderStart: 71-65-1041KF RENAL AND BLADDERGeneric External Data ProviderStart: 44-52-1452KN ABDOMEN 1VGeneric External Data ProviderStart: 97-50-3987KRS QUALITATIVE*Generic External Data ProviderStart: 71-08-8272Bjpenxbhz on SanFranSEOPaMaicoin Start: 39-21-3781Fbgtrybzg on [facility] Start: 00-77-9779XTODW OXIMETRY, Nicholeter Kristel Frias MD Work Phone: Start: 06-18-3382Zbrhz test visual color cmprsn luis eduardosClucero Phillips MD Work Phone: Start: 57-90-7010Igfjw septoplastyAnna JERRY Start: 88-89-8477Pqnx - repair or plastic operation Anna JERRY Start: 30-52-4203LJ MAXILLOFACIAL W/O CONTRASTHilary Gustavo Morales MD Work Phone: Start: 91-99-2599EL ABDOMEN 1VGeneric External Data ProviderStart: 49-47-4686RF RENAL BIGeneric External Data ProviderStart: 66-18-2064U-ray of left footAPRN Leana Soler Work Phone: Start: 87-93-0719Z-ray exam of abdomenSALEEM WINSOME AppendectomyPauofl health - mary and elizabeth hospitalk JERRY CholecystectomyPauofl health - mary and elizabeth hospitalchristiano JERRY ColonoscopyJoselitouofl health - mary and elizabeth hospitalchristiano JERRY Hernia of abdominal cavity (disorder)Anna JERRY Ligation of fallopian tubePauofl health - mary and elizabeth hospitalk JERRY LithotripsyBaptist Health Richmondchristiano JERRY Plan of Treatment DateCare ActivityDetailAuthorStart: 46-81-2622Pequzv Vaccines (1 of 2)Zoster Vaccines (1 of 2)[facility]Start: 05-30-2025 End: 47-80-1379Ekxfkfy encounter svwglqham17/11/2025 3:00 PM EDT Office Visit [facility] [address] [place] [address] Kirby Alberto MD [address] [place] [address] [facility] FMStart: 45-31-8101Refyxzvhw vaccinationNOMS HealthcareStart: 03-26-2025 End: 76-88-4236Pmkggav encounter procedureNOMS CWM FMComment on above:Arrived Start: 12-12-2024 End: 91-33-3115Ividvht encounter procedureANA DORAUSKYComment on above:Arrived Start: 09-25-2024 End: 34-30-2271Jtanknx encounter procedureNOMS CWM FMComment on above:Arrived Start: 07-05-2024 End: 22-88-9057Trhxtqx encounter xainzhxql38/17/2024 11:45 AM EDT Office Visit [facility] [address] [place] [address] Kirby Alberto MD [address] [place] [address] ArrivedNOMS CWM FMComment on above:ArrivedStart: 06-05-2024 End: 36-16-1490Jzjrlac encounter qlkeimofl37/17/2024 3:00 PM EDT Office Visit [facility] [address] [place] [address] Kirby Alberto MD [address] [place] [address] [facility] FMStart: 77-59-6424Sdxrsrbbs vaccinationNOMS HealthcareStart: 05-14-2024 End: 33-51-0367Qhvtcxk encounter eskmmbtrv94/26/2024 10:15 AM EDT Office Visit [facility] [address] [place] [address] Gorge Weldon PA-C [address] [facility] [place] [address] [facility] Centertart: 96-62-1803Cmikgkzvxs hospital visit by vyvroncfr49/19/2024 Hospital Encounter [facility] [place] [address] [place] [address] [place] [address] [place] [address] [facility] ORStart: 05-07-2024 End: 60-65-6884Lvmbslpmryj/submucous resecj w/wo cartilage grfRepair Septum Nasal Cavity with Reduction Turbinate Deviated nasal septum Nasal congestion Nasal turbinate hypertrophy Nasal deformity 05/07/2024 7:51 AM EDTVirtual [facility] ORStart: 37-74-2461VEUBX-19 Vaccine ( season)COVID-19 Vaccine ( season)[facility]: 05-11-2020 DTaP/Tdap/Td Vaccines (3 - Td or Tdap)DTaP/Tdap/Td Vaccines (3 - Td or Tdap) [facility]: 24-79-2319Mwczpmdyh for malignant neoplasm of cervixNOMS HealthcareStart: 25-16-2246Jscskbnkk for malignant neoplasm of cervixNOMS HealthcareStart: 37-97-7036Qtdwahsm mellitus screening Diabetes ScreeningK[facility] Health [facility]: 99-37-2791Edgrmrvae C screeningHepatitis C ScreeningK[facility]: 1985 HIV screeningHIV ScreeningK[facility]: 1985 Lipid panelLipid PanelKettering Health Hamilton: 77-99-0695Mxibyt Adult PhysicalYearly Adult PhysicalUnTwin City Hospital Comprehensive metabolic 2000 panel - Serum or PlasmaKnox Community Hospitaleptoplasty/submucous resecj w/wo cartilage grfRepair Septum Nasal Cavity with Reduction Turbinate Deviated nasal septum Nasal congestion Nasal turbinate hypertrophy Nasal deformityVirtual [facility]ITALASC [facility] Immunizations Immunization DateImmunizationNotesCare FwrromouXkokaigj68-74-2906sxnyhdl toxoid, reduced diphtheria toxoid, and acellular pertussis vaccine, adsorbedPalinda JERRY [facility]04-24-2007varicella virus vaccinePalinda JERRY [facility]03-21-2007varicella virus vaccineAnna JERRY [facility]08-07-2006hepatitis B vaccine, pediatric or pediatric/adolescent dosage Anna JERRY [facility]04-03-2006hepatitis B vaccine, pediatric or pediatric/adolescent dosage Anna JERRY [facility]02-27-2006hepatitis B vaccine, pediatric or pediatric/adolescent dosage Anna JERRY [facility]06-22-1999diphtheria, tetanus toxoids and acellular pertussis vaccine, unspecified formulationSaint James Hospitalmehdi Alberto MD Work Phone: [facility] HospitalIgbjrqtymi40-76-7568YZxU, unspecified formulation Anna JERRY [facility]06-22-1999measles, mumps and rubella virus vaccineAnna JERRY [facility] Payers DatePayer CategoryPayerPolicy [id number]'s CompensationGALLABRAYDEN DOWELL WORK COMP Member Subscriber Plan / Payer (Effective 2024-Present) Name: Lul Gurrola Member ID: [id number] Relation to Subscriber: Employee Name: LUL PELAEZ Subscriber ID: [id number] Date of : 1985 (Home) Address: [address] [place], [place] [address] [address] Payer ID: Not on file Group ID: Not on file Type: Not on file Address: [address] [id number] Cihd-[id number] 2020Private Health Insurance [id number]64599.363867.43463-54-4422Rialret85-60-0890 [id number] 2.16840.4.37120[id number] 2.16840.1.526069.3.57[id number] 2.16840.1.530070.3.57[id number] 2.16840.1.859214.3.579.[id number] 2.16840.1.455731.3.57[id number] 2.16840.1.252357.3.579.[id number] 2.16840.1.513903.3.579.2.18151-03-2570Togbgyu3331137 2.16840.1.741672.3.579.2.48890-09-3477Ejwxbry5430435 2.16840.1.327315.3.579.[id number] 2.16840.1.212348.3.579.2.92193-02-2432Lbtdxyl5172392 2.16.840.1.604883.3.579.[id number] 2.16.840.1.833431.3.57[id number] 2.16.840.1.523842.3.579.2.090275-88-2248Hbvfimy4603099 2.16.840.1.073885.3.579.2.198705-08-2289Cdnweyy7023414 2.16.840.1.968273.3.579.2.293174-24-4124Pnfqdzo2517498 2.840.1.632726.3.579.2.772487-17-3206Dhrihjb3511162 2.840.1.907207.3.579.2.339888-51-4078Rlaqsvz92628290 2.16840.1.510212.3.579.2.[id number] 2.840.1.763233.3.579.2.331565-28-2257Jsxgohu43097576 2.16.840.1.546891.3.579.2.[id number] 2.840.1.024844.3.579.2.87777-69-0928Ojqwhir043687535 2.840.1.447209.3.579.2.57717-15-7326Dmmxnae603866919 2.840.1.309438.3.57[id number] 2.16840.1.634422.3.579.2.31021-31-4577Oqgvjtw969747775 2.840.1.830721.3.579.2.14969-21-3921Lgkycfj70601122 2.16.840.1.981810.3.579.2.840776-64-3660Qumvfsc77240117 2.16.840.1.015603.3.579.2.881396-91-4348Wskzogx9764414 2.16.840.1.948438.3.579.2.022006-31-8856Fijfusz2099194 2.16.840.1.904285.3.579.2.581483-37-3682Lylhfjv5008279 2.16.840.1.166799.3.579.2.916028-64-7617Nroeicd4158953 2.16.840.1.984561.3.57[id number] 2.16.840.1.787581.3.57[id number] 2.16.840.1.289015.3.579.2.54712-61-1669PrxrlzzJ5852094907-15-9015Uosmbrq [id number] 2.16.840.2.16919[id number] 2.1[id number] 2.16.0.1.449566.3.579.2.531 Social History DateTypeDetailFacilityUnknown if ever smokedNort [facility] [employer] Other Start: 09-27-2023 End: 21-85-9995[facility] 10-[facility]-2022 End: 03-82-1217Xcaulwy smoking statusNever smoked tobacco (finding)[facility]: 77-44-2826H[facility]2023 End: 21-45-9407Iotmsym smoking status NHISEx-smokerNOMS HealthcareHistory of tobacco useCurrent smokerNOMS HealthcareHistory of tobacco useCigarette Smoker [facility] HealthcareStart: 10-04-2023 End: 91-07-1622Zsjhzwqpof smoked current (pack per day) - Reported0.3N[facility]S HealthcareStart: 26-97-2515Lrghxyb use and exposureSmokeless tobacco non-user [facility] HealthcareStart: 02-09-2024 End: 43-69-6266Pewouilhn beverage intakeLifetime non-drinker (finding)[facility] HealthcareWithin the last year, have you been afraid of your partner or ex-partner?NoNOMS HealthcareStart: 28-09-9612Oeh often do you attend meetings of the clubs or organizations you belong to?Patient declinedNOMS HealthcareAre you now , , , , never or living with a partner?MarriedNOMS HealthcareHow often to you have a drink containing alcohol? NeverNOMS HealthcareHow hard is it for you to pay for the very basics like food, housing, medical care, and heatingNot very hardNOMS HealthcareDo you feel stress - tense, restless, nervous, or anxious, or unable to sleep at night because your mind is troubled all the time - these days [OSQ]Only a littleNOMS Healthcare (I/We) worried whether (my/our) food would run out before (I/we) got money to buy more.Never trueNOMS HealthcareStart: 09-29-2023 End: 26-34-1098Vvodikq CommentOhioHealth Grant [facility] Center Work Phone: Start: 72-27-8680Yei assigned at birthNot on file [facility] Work Phone: TobaccoVape Tobacco Use:. Current vaping or e- cigarette use Smokeless Tobacco Use:. [facility] Tobacco smoking statusNo Smoking Status Entered [facility] start: [id number] use and exposureUser of smokeless tobaccoUnTwin City Hospital Work Phone: Start: 03-15-2024 End: 04-45-3325Geboenwrn beverage intakeEx-drinker (finding)[facility] Work Phone: Start: 03-05-2024 End: 05-29-8975Vrzmwqji to SARS-CoV-2 (event)Not sureUnTwin City HospitalAre you now , , , , never or living with a partner?DivorcedNOMS HealthcareHow hard is it for you to pay for the very basics like food, housing, medical care, and heatingHardNOMS Healthcare Do you feel stress - tense, restless, nervous, or anxious, or unable to sleep at night because yourmind is troubled all the time - these days [OSQ]Rather much [facility](I/We) worried whether (my/our) food would run out before (I/we) got money to buy more.Sometimes trueNOMS HealthcareSexFemale (finding)[facility] HospitalTobacco smoking status NHISTobacco smoking consumption unknownNOIN HealthcareNEGATED: Highlighted [facility] Functional Status Tdrn[id number] score [AUDIT-C]0 03/25/2025 11:35 AM EDT Mychart, GenericNOMS Kudlrcjndx19-46-7757Npo often do you have a drink containing alcohol?Never 03/25/2025 11:35 AM EDT Mychart, Generic NeverNOMS Yktqkbjntq32-98-2044Gfsoddznud statusPatient does not drink 03/25/2025 11:35 AM EDT Mychart, Generic Patient does not drinkNOMS Vwlpbqlpup35-74-7142Fcg often do you have 6 or more drinks on 1 occasion?Never 03/25/2025 11:35 AM EDT Mychart, Generic NeverNOMS Odlxmnwnen57-70-9327Mxvclzmhce StatusN/AExecutive [facility]rology of [facility]01-16-2024Patient Health Questionnaire 2 item (PHQ-2) [Reported][facility] HospitalFvztwddapy58-46-8278Fvpujmnskv StatusN/AExec[facility]rology of [facility]01-16-2023Functional StatusN/A [facility] Clinical Notes 07-22-2021 to 03-27-2025 Note Date & TpzeOujbQhykigto62-89-1225 Telephone encounter Note* Telephone Encounter - Kirby Alberto MD - 03/27/2025 11:50 AM EDT [facility] HospitalQwnjxyeujv52-10-2775 Miscellaneous Notes* Telephone Encounter - Kirby Alberto MD - 03/27/2025 11:50 AM EDT documented in this encounterBarnes-Jewish [id number] History of Present illness Narrative* Kirby Alberto MD - 03/26/2025 3:21 PM EDTAssociated Problem(s): Sleep apnea with hypersomnolence Fatigue improved with medication and continue adderall. * Kirby Alberto MD - 03/26/2025 3:21 PM EDTAssociated Problem(s): Migraine without aura and without status migrainosus, not intractable GALLO stable and use fioricet PRN. * Kirby Alberto MD - 03/26/2025 3:21 PM EDTAssociated Problem(s): Insomnia due to mental condition Not sleeping well and try restoril. * Kirby Alberto MD - 03/26/2025 3:21 PM EDTAssociated Problem(s): Generalized anxiety disorder Symptoms controlled with paxil and continue. * Kirby Alberto MD - 03/26/2025 3:20 PM EDTAssociated Problem(s): Bilateral leg edema Edema controlled with medication and continue. Elevate legs PRN. * Kirby Alberto MD - 03/26/2025 2:45 PM EDT Images from the original note were [...] week. Throbbing pain in entire head associated withphotophobia, phonophobia and nausea. Using fioricet PRN and typically helps. Anxiety stable. Recentdivorce and increased stress but adjusting well. Not as stressed out or overwhelmed. Not as nervousor worry as much. Not as herman or irritable. C/o not sleeping well. Hard time falling asleep and not able to stop thinking or clear mind to fall asleep. Tried multiple OTC and not helping. Thinks notsleeping well adding to fatigue during the day. [...] (Restoril) 15 MG capsule documented in this encounterBarnes-Jewish [id number] History of Present illness Narrative* JUJU Rich - 12/12/2024 2:30 PM EDT Images from the original note were not included. Reason for Appointment: EMG Patient: Lul Pelaez : 1985 EMG Computer: [employer] Referring Physician: Jb Renae CNP EMG: IRWIN link and link knitting machine operator: Kendell Corado RT(R) Office Location: [place] Reason for EMG: c/o numbness/tingling in bilateral hands R>L, neck pain into right shoulder, pain in 3rd 4th digits on right hand. No hx of DM. Not on blood thinners. Comments: Procedure was explained to the patient who expressed understanding. Patient appeared to have tolerated the test well despite some discomfort due to the nature of the test. documented in this encounterBarnes-Jewish [id number] History of Present illness Narrative* Kirby Alberto MD - 09/25/2024 4:06 PM ESTAssociated Problem(s): Class 3 severe obesity due to excess calories with serious comorbidity and nat dy mass index (BMI) of 45.0 to 49.9 in adult (CMS/HCC) Discussed proper diet and regular aerobic exercise. Recommend Weight Watchers and need to limit calories and smaller portions. Need to increase activity and regular aerobic exercise several days a week for 30 minutes at a time. * Kirby Alberto MD - 09/25/2024 4:05 PM ESTAssociated Problem(s): Migraine without aura and without status migrainosus, not intractable ([facility]) GALLO stable and continue elavil. Use fioricet PRN. * Kirby Alberto MD - 09/25/2024 4:05 PM ESTAssociated Problem(s): Generalized anxiety disorder ([facility]) Symptoms controlled with paxil and continue. * Kirby Alberto MD - 09/25/2024 4:05 PM ESTAssociated Problem(s): Bilateral leg edema Edema controlled with medication and continue. Elevate legs PRN. * Kirby Alberto MD - 09/25/2024 4:05 PM ESTAssociated Problem(s): Sleep apnea with hypersomnolence Fatigue improved with medication and continue adderall. * Kirby Alberto MD - 09/25/2024 4:05 PM ESTAssociated Problem(s): Obstructive sleep apnea (adult) (pediatric) (Resolved 09/25/2024) Fatigue improved with medication and continue adderall. * Kirby Alberto MD - 09/25/2024 3:30 PM EST Images from the original note were not [...] mass index (BMI) of45.0 to 49.9 in adult (CMS/HCC) Discussed proper diet and regular aerobic exercise. Recommend Weight Watchers and need to limit calories and smaller portions. Need to increase activity and regular aerobic exercise several days a week for 30 minutes at a time. Sleep apnea with hypersomnolence Fatigue improved with medication and continue adderall. documented in this encounterBarnes-Jewish [id number] Hospital Discharge instructions Patient Education 07/30/2024 16:57:16 [...] include: ?8 oz (237 mL) of milk, kkypjag-vhssncthlltm-pyzjr milk, and calcium- fortifiedfruit juice. Calcium-fortified means [...] the table and allow each person to addtheir own salt to taste. Use vegetable protein, [...] portion sizes. For most meat and fish, oneserving is about the size of the palm [...] ?Spinach (cooked), rhubarb, beets, sweet potatoes, and Israeli chard. ?Peanuts. ?Potato chips, comoran fries, and baked potatoes with skin on. ?Nuts and nut products. ?Chocolate. If you regularly take a diuretic medicine, make sure to eat at least 1 or 2 servings of fruits or vegetables that are high in potassium each day. These include: ?Avocado. ?Banana. ?[place], prune, carrot, or tomato juice. ?Baked potato. [...] magnesium, fish oil, or vitamin B6. Take mgbt-pdw-deoklsd and prescription medicines only as told by [...] Casseroles. Pizza. Lasagna. Frozen meals. Potato chips. Moldovan fries. The items listed above may not [...] provider. Document Revised: 12/16/2022 Document Reviewed: 12/16/2022 [employer] Patient Education 2023 [employer]. Follow Up Care 07/05/2023 15:47:59 With:CLARITZA JOHNSTON, Anna Lorenzana, URL Address: [facility] [address] [place] [address]- [phone] When: Unknown [facility] 11-11-2024 NotePatient Education Nephrology Dietary Guidelines to Help Prevent [...] labels. Limit your salt (sodium) intake to lessthan 1,500 mg a day. ??? Choose foods with calcium for each meal and snack. Try to eat about 300 mg of calcium at each meal. Foods that contain 200?500 mg of calcium a serving include: ? 8 oz (237 mL) of milk, yiskzno-wauszzkqamlt-nrnem milk, and calcium- fortifiedfruit juice. Calcium-fortified means [...] on the table and allow each person toadd their own salt to taste. ??? Use [...] Spinach (cooked), rhubarb, beets, sweet potatoes, and Israeli chard. ? Peanuts. ? Potato chips, comoran fries, and baked potatoes with skin on. ? Nuts and nut products. ? Chocolate. ??? If you regularly take a diuretic medicine, make sure to eat at least 1 or 2 servings of fruits or vegetables that are high in potassium each day. These include: ? Avocado. ? Banana. ? [place], prune, carrot, or tomato juice. ? Baked potato. ? Cabbage. ? Beans and split peas. Lifestyle ??? Drink enough fluid to keep your urine pale yellow. This is the most important thing you can do.Spread your fluid intake throughout the day. ??? [...] fish oil, or vitamin B6. ??? Take kijw-dqx-bjroaun and prescription medicines only as told by your health (more content not included)...[facility]10-17-2024 History of Present illness Narrative* Kirby Alberto MD - 07/05/2024 12:01 PM EDTAssociated Problem(s): Acute bronchitis due to other specified [...] if no better or worse callfor re-evaluation. * Kirby Alberto MD - 07/05/2024 11:45 AM EDT Images from the original note were not included. Subjective Patient ID: Lul Pelaez is a 38 y.o. female who presents for Follow-up (Chest cold/cough). C/o cough, congestion, and rhinorrhea x 1-2 weeks. Temp 101. Severe fatigue and no energy. Frequentcough productive green sputum. Chest tight and SOB. GALLO and sinus pressure in forehead and cheeks along with postnasal drip. Ears plugged and popping. Sore throat and pain to swallow. Mild nausea. Sonrecently sick. Using OTC medication and mild relief. [...] if no better or worse callfor re-evaluation. Relevant Medications levoFLOXacin (Levaquin) 750 MG tablet predniSONE (Deltasone) 50 MG tablet documented in this encounterBarnes-Jewish [id number] History of Present illness Narrative* Kirby Alberto MD - 06/05/2024 3:30 PM EDTAssociated Problem(s): Thoracic spondyloarthritis Recent injection and follow with pain management. * Kirby Alberto MD - 06/05/2024 3:30 PM EDTAssociated Problem(s): Obstructive sleep apnea (adult) (pediatric) Fatigue improved with medication and continue adderall. * Kirby Alberto MD - 06/05/2024 3:30 PM EDTAssociated Problem(s): Migraine without aura and without status migrainosus, not intractable (CMS/HCC) GALLO stable and continue elavil. Use fioricet PRN. * Kirby Alberto MD - 06/05/2024 3:29 PM EDTAssociated Problem(s): Generalized anxiety disorder (CMS/HCC) Symptoms controlled with paxil and continue. * Kirby Alberto MD - 06/05/2024 3:29 PM EDTAssociated Problem(s): Bilateral leg edema Edema controlled with medication and continue. Elevate legs PRN. * Kirby Alberto MD - 06/05/2024 3:00 PM EDT Images from the original note were [...] Throbbing pain in entire head associated with photophobia,phonophobia and nausea. Using fioricet PRN and typically helps. Anxiety stable. Not as stressed outor overwhelmed. Not as nervous or worry as [...] MG 24 hr capsule documented in this encounterBarnes-Jewish [id number] History of Present illness Narrative* Gorge Weldon PA-C - 05/14/2024 10:15 AM EDT Images from the original note [...] needed Gorge Weldon PA-C documented in this [facility] Work Phone: 1(434) 181-957308-19-2024 Hospital Discharge instructions* Discharge Instructions* Yanely Rdz RN - 05/07/2024 7:00 AM EDT Images from the original note were not included. Scopalamine patch may stay on for 72 hrs. Remove patch, discard away form pets, children. Do not touch eyes! Wash hands thoroughly Scopalamine patch may stay on for 72 hrs. Remove patch, discard awayform pets, children. Do not touch eyes! Wash hands thoroughly [facility] NASAL SURGERY POST-OPERATIVE PATIENT INSTRUCTIONS At Home after Surgery: Head Elevation: Keep your head elevated (the height of 2 pillows is appropriate) for 3 days to helpwith swelling. Ice: Apply cold compresses to the [...] nostril every hour while awake. This will helpkeep the nasal passages moist and prevent scabbing [...] of your nose, this will remain in placeuntil your follow-up appointment. If the cast does [...] mild, active bleeding the first night. Some blood- tinged drainage is normal for 1-2 weeks after [...] may be resumed 1 month after surgery buttry to protect your nose as it is still healing. Seek Medical Attention: Call the office or seek medical attention if you develop fever greater pwtx744 degrees, excessive bleeding, excessive pain that is [...] at any time if you have any questionsor concerns and would like to be seen sooner than your next scheduled visit. Dr. Jarred Phillips: [phone] Dr. Florentino Vinson: [phone] Yara Aguirre, PAULA & Kelsey Robbins RN. Evenings/Weekends Emergency Dr. Phillips: [phone] - please ask for the ENT resident on-call Evenings/Weekends Emergency Dr. Vinson: [phone] documented in this [facility] Work Phone: 1(223) 779-434008-19-2024 History and physical note* Gorge Weldon PA-C - 05/07/2024 6:55 AM EDT History Of Present Illness Lul Pelaez is [...] care of this patient. Gorge Weldon PA-C [facility] Work Phone: 1(659) 957-614708-19-2024 History and physical note* Gorge Weldon PA-C - 05/07/2024 6:55 AM EDT History Of Present Illness Lul Pelaez is [...] patient. Gorge Weldon PA-C documented in this [facility] Work Phone: 1(159) 347-224606-27-2024 History of Present illness Narrative* Jarred Phillips MD - 03/15/2024 12:30 PM EDT Images from the original note were [...] pass was to the area of the middlemeatus. The third pass was to the sphenoethmoidal recess. Septum: Deviation is S shaped with bilateral obstruction approximately 90% without perforations norsynechia. Internal Nasal Valve: Angle is reduced, narrowing [...] turbinate reduction with lateralization. documented in this encounterSelect [facility] Work Phone: 1(884) 924-299901-04-2024 Evaluation note* Encounter Date Diagnosis Assessment Notes Treatment Notes Treatment Clinical Notes Sep, Dysuria (ICD-10 - R30.0) Discussed dipstick findings with patient. Advised patient that there is no evidence of acute UTI. Advised that this is likely related to stone. Recommended ER for further evaluation and workup. Patient verbalizes understanding and is agreeable with treatment plan [facility] Other 09-25-2023 Hospital Discharge instructions Patient Education [...] include: ?8 oz (237 mL) of milk, vytezcy-helqkacwfsns-oeupf milk, and calcium- fortifiedfruit juice. Calcium-fortified means [...] ?Spinach (cooked), rhubarb, beets, sweet potatoes, and Israeli chard. ?Peanuts. ?Potato chips, comoran fries, and baked potatoes with skin on. ?Nuts and nut products. ?Chocolate. If you regularly take a diuretic medicine, make sure to eat at least 1 or 2 servings of fruits or vegetables that are high in potassium each day. These include: ?Avocado. ?Banana. ?[place], prune, carrot, or tomato juice. ?Baked potato. [...] magnesium, fish oil, or vitamin B6. Take zgbl-sld-vzfdnae and prescription medicines only as told by [...] Casseroles. Pizza. Lasagna. Frozen meals. Potato chips. Moldovan fries. The items listed above may not [...] provider. Document Revised: 05/17/2022 Document Reviewed: 05/17/2022 [employer] Patient Education 2022 [employer]. Follow Up Care 02/08/2023 16:17:30 With:YORDY WILLSON, XIMENA Lam, URL Address: [address] [place] [address] [phone] When: Unknown Comments:2 yr w/ BOGDAN and QING [facility] 06-18-2023 Evaluation note* Encounter Date Diagnosis Assessment Notes Treatment Notes Treatment Clinical Notes Feb, Acute pain of left foot (ICD-10 - M79.672) X-ray of left foot is negative for any acute bony findings. No fracture or dislocation. Does have evidence of plantar heel spur which is unrelated. Feb,cute gout of left foot, unspecified cause (ICD-10 - M10.9)Low- purine diet material was printed, Gout material was printed Discussed with patient given no abnormality on x-ray, rapid onset pain and swelling-suspect gout diagnosis. No current signs of cellulitis. Will treat with 9-day prednisone taper. Finish entire course. May use Tylenol for discomfort. Ice and elevation encouraged. Follow-up with PCP if not graduallyimproving over the next week, sooner if significantly worsening, develops rapidly spreading erythema, warmth, fever. Patient verbalized understanding of treatment plan. [facility] Other 01-16-2023 Hospital Discharge instructions Patient Education [...] include: ?Spinach. ?Rhubarb. ?Beets. ?Potato chips and comoran fries. ?Nuts. If you regularly take a diuretic medicine, make sure to eat at least 1 2 fruits or vegetables high in potassium each day. These include: ?Avocado. ?Banana. ?[place], prune, carrot, or tomato juice. ?Baked potato. [...] Casseroles. Pizza. Lasagna. Frozen meals. Potato chips. Moldovan fries. Summary You can reduce your risk [...] 12/31/2011 Document Revised: 12/26/2019 Document Reviewed: 08/16/2017 [employer] Patient Education 2020 [employer]. Follow Up Care 08/30/2022 15:20:43 With:CLARITZA JOHNSTON, Anna Lorenzana, URL Address: [facility] [address] , [place] [address]- When: Unknown [facility] 12-14-2022 Evaluation note* Encounter Date Diagnosis Assessment Notes Treatment Notes Treatment Clinical Notes Aug, Contact with and (lim spected) exposure to covid-19 (ICD-10 - Z20.822) Aug,Viral upper respiratory infection (ICD-10 - J06.9)Viral upper respiratory infection: adult home care material was printed Drink plenty fluids, get plenty of rest. Take Tylenol or Motrin as needed for aches pains or fevers. Follow-up with family physician if no improvement in 2 to 3 days. Take the prednisone as prescribed until gone. Use the albuterol inhaler as prescribed as needed for cough or shortness of breath [facility] [employer] Other 08-04-2022 Evaluation note* Encounter Date Diagnosis [...] care provider if no improvement of symptoms. [facility] Other 11-03-2021 Evaluation note* Encounter Date Diagnosis Assessment Notes Treatment Notes Treatment Clinical Notes Jul, Contact with and (lim spected) exposure to other viral communicable diseases (ICD-10 - Z20.828) Jul,OVID-19 (ICD-10 - U07.1) Jul,Other Additional time spent conducting pre-visit phone call, screening for symptoms, instructions on social distancing, application and removal of PPE, and cleaning of examination room, equipment and supplies was preformed. Patient education given for testing methodology and results. Patient care instructions given in writting by [facility] At Home document. [facility] [employer] Other Evaluation + Plan note Future Appointments Appointment Date:01/10/2023 03:15:00 PM Scheduled Provider:Anna JERRY MD Location:[facility] Appointment Type:URO Office Visit Diagnostic Tests Pending * Creatinine 10/04/22 [facility] evaluation + Plan note Future Appointments Appointment Date:07/10/2024 02:00:00 PM Scheduled Provider:XIMENA CUEVAS PA-C Location:[facility] Appointment Type:URO Office Visit [facility] evaluation + Plan note Future Appointments Appointment Date:07/29/2025 09:45:00 AM Scheduled Provider:Anna JERRY MD Location:[facility] Appointment Type:URO Office Visit Diagnostic Tests Pending * Electrolyte Panel 07/30/24 [facility] evalynrizc noteNo assessment information available [facility] Work Phone: Evaluation note* Diagnosis Migraine [...] apnea (adult) (pediatric) documented in this encounter [facility] HealthcareEvaluation note* Diagnosis Obstructive sleep apnea (adult) (pediatric) documented in this encounter [facility] HealthcareEvaluation note* Diagnosis Obstructive sleep apnea (adult) (pediatric)- Primary Generalized anxiety disorder (CMS/HCC) Generalized anxiety disorder Migraine without aura and without status migrainosus, not intractable (CMS/HCC) Bilateral leg edema Edema 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 documented in this encounter [facility] HealthcareEvaluation note* Diagnosis Nasal deformity- Primary Acquired [...] deformity of nose documented in this encounter [facility] Work Phone: Evaluation note* Diagnosis Deviated nasal septum- Primary Deviated nasal septum Sore of lip Nasal congestion Other diseases of nasal cavity and sinuses Nasal turbinate hypertrophy Hypertrophy of nasal turbinates Nasal deformity Acquired deformity of nose Anxiety Anxiety state, unspecified Depression Depressive disorder, not elsewhere classified ADHD documented in this encounter [facility] Work Phone: Evaluation note* Diagnosis Deviated nasal septum documented in this encounter [facility] Work Phone: Evaluation note* Diagnosis Migraine [...] mass index (BMI) of45.0 to 49.9 in adult (CMS/HCC) documented in [...] mass index (BMI) of45.0 to 49.9 in adult (CMS/HCC) Obstructive sleep apnea (adult) (pediatric) documented in this encounter [facility] HealthcareEvaluation note* Diagnosis Migraine without aura [...] mass index (BMI) of45.0 to 49.9 in adult (CMS/HCC) Obstructive sleep apnea (adult) (pediatric) documented in this encounter [facility] HealthcareEvaluation note* Diagnosis Migraine without aura [...] mass index (BMI) of45.0 to 49.9 in adult (CMS/HCC) Paresthesia- Primary [...] mass index (BMI) of45.0 to 49.9 in adult Migraine without aura and without status migrainosus, not intractable (CMS/HCC) Obstructive sleep apnea (adult) (pediatric) documented in this encounter [facility] HealthcareEvaluation note* Diagnosis Migraine without aura [...] mass index (BMI) of45.0 to 49.9 in adult Obstructive sleep apnea (adult) (pediatric) documented in this encounter [facility] HealthcareEvaluation note* Diagnosis Migraine without aura [...] mass index (BMI) of45.0 to 49.9 in adult ([facility]) Migraine without aura and without status migrainosus, [...] (chronic) Bilateral leg edema Edema Morbid obesity ([facility]-HCC) Morbid obesity Obstructive sleep apnea (adult) (pediatric)- [...] mass index (BMI) of45.0 to 49.9 in adult ([facility]) Migraine without aura and without status migrainosus, [...] mass index (BMI) of45.0 to 49.9 in adult (CMS-HCC) Migraine without aura and without status migrainosus, not intractable- Primary Sleep apnea with hypersomnolence Bilateral leg edema Edema Generalized anxiety disorder Generalized anxiety disorder 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 Obstructive sleep apnea (adult) (pediatric) documented in this encounter [facility] Healthcare[facility]* Diagnosis Onset Date Resolution Status Admit Date Annual physical exam acuteSeptember 2024 3:01pm [facility] Work Phone: History general Narrative - Reported* Type Description Date Medical History kidney stones Surgical HistoryC sectionSurgical HistoryappendectomySurgical History cholecystectomySurgical Historyhernia repairSurgical HistorylithotripsySurgical Historywisdom teeth extractHospitalization Historysee above [facility] Other History general Narrative - Reported* Type Description Date Medical History kidney stones Medical HistoryanxietyMedical Historymigraine headacheSurgical HistoryC section Surgical HistoryappendectomySurgical HistorycholecystectomySurgical History hernia repairSurgical HistorylithotripsySurgical Historywisdom teeth extract Hospitalization Historysee above MirDeneg Other History general Narrative - Reported* Type Description Date Medical History kidney stones Medical HistoryanxietyMedical Historymigraine headacheSurgical HistoryC section Surgical HistoryappendectomySurgical HistorycholecystectomySurgical History hernia repairSurgical HistorylithotripsySurgical Historywisdom teeth extract Surgical Historycortisone shots in backHospitalization Historysee above Spinal Kinetics [facility] [employer] Other Hospital course Narrative No data available for this section [facility] Hospital Discharge instructions No data available for this section [facility] No data available for this section [facility] reason for referral (narrative)No reason for referral information availableTogus [facility] Work Phone: Reason for visit Narrative* Other Medical (Routine) - ClosedSpecialtyDiagnoses / ProceduresReferred By ContactReferred To Contact Neurology Diagnoses Paresthesia of skin Pain in right wrist Procedures AK NEEDLE EMG EA EXTREMTY W/PARASPINL AREA COMPLETE AK NERVE CONDUCTION STUDIES 9-10 STUDIES Jb Renae MD [address] [place] [address] fax: Lul Chang DO [address] [place] [address] Phone: tel: fax: Referral IDStatusReasonStart DateExpiration DateVisits RequestedVisits [id number] Perform Procedure / [facility] Summary Purpose Family History No Family History Records Found Relationship Condition Age at Onset Recorded Date/T yuly mother Heart disease Unknown Advance Directives No Advanced Directives Records Found Advance Directive Response Recorded Date/ Time Advance Directives No March 11 12:09pm Chief Complaint and Reason for Visit Chief Complaint Admit Date Established Patient May 30, 2025 3:01pm Reason for Visit Admit Date Annual physical exam May 30 3:01pm Additional Source Comments INFORMATION SOURCE (unrecogn ized section and content) DATE CREATED AUTHOR 03/14/2018 [facility] DATE CREATED AUTHOR AUTHOR'S ORGANIZ ATION 01/19/2023 [facility] DATE CREATED AUTHOR AUTHOR'S ORGANIZ ATION 03/19/2023 [facility] DATE CREATED AUTHOR AUTHOR'S ORGANIZ ATION 04/03/2024 [facility] EPIC DATE CREATED AUTHOR AUTHOR'S ORGANIZ ATION 05/15/2024 [facility] DATE CREATED AUTHOR AUTHOR'S ORGANIZ ATION 06/21/2024 [facility] DATE CREATED AUTHOR AUTHOR'S ORGANIZ ATION 06/22/2024 [facility] DATE CREATED AUTHOR AUTHOR'S ORGANIZ ATION 03/30/2025 [facility] EPIC DATE CREATED AUTHOR AUTHOR'S ORGANIZ ATION 07/28/2025 [facility] REASON FOR VISIT (unrecogniz ed section and content) ReasonCommentsFollow-upChest cold/coughReasonOnset DateCommentsMed Refill 4ReasonOnset DateCommentsMed [id number]-up2 m ReasonCommentsNew Patient VisitDeviated Nasal SeptumReasonOnset DateCommentsMed Axvufz5108/31/2024SpecialtyDiagnoses / ProceduresReferred By ContactReferred To Contact Diagnoses Deviated nasal septum Nasal congestion Nasal turbinate hypertrophy Nasal deformity Deviated nasal septum [J34.2] Nasal Deformity [M95.0] Inferior turbinate Hypertrophy [J34.3] Procedures AK SEPTOPLASTY/SUBMUCOUS RESECJ W/WO CARTILAGE GRF AK CARTILAGE GRAFT NASAL SEPTUM AK REPAIR NASAL VESTIBULAR STENOSIS AK FRACTURE NASAL INFERIOR TURBINATE THERAPEUTIC AK ABLTJ SOF TISS INF TURBS UNI/BI SUPFC INTRAMURAL SEPTOPLASTY, INFERIOR TURBINATE REDUCTION, NASAL VALVE REPAIR, RECONSTRUCTION OF NOSE SEPTOPLASTY, INFERIOR TURBINATE REDUCTION, NASAL VALVE REPAIR, RECONSTRUCTION OF NOSE SEPTOPLASTY, INFERIOR TURBINATE REDUCTION, NASAL VALVE REPAIR, RECONSTRUCTION OF NOSE SEPTOPLASTY, INFERIOR TURBINATE REDUCTION, NASAL VALVE REPAIR, RECONSTRUCTION OF NOSE SEPTOPLASTY, INFERIOR TURBINATE REDUCTION, NASAL VALVE REPAIR, [place] [address] [place] [address] [facility] [address] [place] [address] Referral IDStatusReasonStart DateExpiration DateVisits RequestedVisits [id number] DateCommentsMed Refill 4ReasonCommentsFollow-upReasonOnset DateCommentsMed Kcohpt1010/01/2024 ReasonOnset DateCommentsMed Glunno3911/05/2024ReasonOnset DateCommentsMed Refill 12/05/2024ReasonCommentsMed RefillReasonOnset DateCommentsMed Zkaxkv6601/31/2025 ReasonCommentsFollow-fg4yAtmv SwellingLeft footReasonOnset DateCommentsMed Ioakun8303/26/2025ReasonOnset DateCommentsMed Vntglz4304/26/2025 Patient Care team informatio n (unrecognized section and content) Team Status: Inactive Member Role Status Dates Leana Soler APRN Attending Provider Active Team MemberRelationshipSpecialtyStart DateEnd Date Kirby Alberto MD [address] [place] [phone] PCP - GeneralFamily Medicine04/13/23 Mary Thayer MD [address] [place] [address] Family Medicine04/13/23Team MemberRelationshipSpecialtyStart DateEnd Date Kirby Alberto MD [address] [place] [address] [facility] - [facility]/13/23 Mary Thayer MD [address] [place] [address] Family [facility]04/13/23Team MemberRelationshipSpecialtyStart DateEnd Date Kirby Alberto MD [address] [place] [address] PCP - GeneralFamily Medicine04/13/23 Mary Thayer MD [address] [facility] [place] [address] Family [facility]04/13/23Team MemberRelationshipSpecialtyStart DateEnd Date Kirby Alberto MD [address] [place] [address] PCP - GeneralFamily Medicine04/13/23 Mary Thayer MD [address] [facility] [place] [address] Family [facility]04/13/23Team MemberRelationshipSpecialtyStart DateEnd Date Kirby Alberto MD [address] [place] [address] PCP - GeneralFamily Medicine04/13/23 Mary Thayer MD [address] [place] [address] Family [facility]04/13/23Team MemberRelationshipSpecialtyStart DateEnd Date Kirby Alberto MD [address] [place] [address] PCP - GeneralFamily Medicine04/13/23 Mary Thayer MD [address] [facility] [place] [address] Family Medicine04/13/23Team MemberRelationshipSpecialtyStart DateEnd Date Kirby Alberto MD [address] [place] [address] PCP - Generalmily Medicine04/13/23Team MemberRelationshipSpecialtyStart DateEnd Date Kirby Alberto MD [address] [place] [phone] [facility] - [facility]04/13/23 Mary Thayer MD [address] [facility] [place] [address] Family [facility]04/13/23Te MemberRelationshipSpecialtyStart DateEnd Date Kirby Alberto MD [address] [place] [phone] PCP - Generalmi Medicine04/13/23 Mary Thayer MD [address] [facility] [place] [address] Family Medicine04/13/23Team MemberRelationshipSpecialtyStart DateEnd Date Kirby Alberto MD [address] [place] [phone] PCP - Generalmi Medicine04/13/23 Mary Thayer MD [address] [facility] [place] [address] Family Medicine04/13/23Team MemberRelationshipSpecialtyStart DateEnd Date Kirby Alberto MD [address] [place] [address] PCP - [facility]04/13/23 Mary Thayer MD [address] [place] [address] [facility]04/13/23Team MemberRelationshipSpecialtyStart DateEnd Date Kirby Alberto MD [address] [place] [address] PCP - [facility]04/13/23 Mary Thayer MD [address] [place] [address] [facility]04/13/23Team MemberRelationshipSpecialtyStart DateEnd Date Kirby Alberto MD [address] [place] [address] PCP - [facility]04/13/23 Mary Thayer MD [address] [place] [address] [facility]04/13/23Te MemberRelationshipSpecialtyStart DateEnd Date Kirby Alberto MD [address] [place] [address] [place] [address] PCP - [facility]04/13/23 Mary Thayer MD [address] [place] [address] Family [facility]04/13/23Team MemberRelationshipSpecialtyStart DateEnd Date Kirby Alberto MD [address] [place] [address] [facility] - [facility]04/13/23 Mary Thayer MD [address] [place] [address] [facility]04/13/23Team MemberRelationshipSpecialtyStart DateEnd Date Kirby Alberto MD [address] [place] [address] PCP - [facility]04/13/23 Mary Thayer MD [address] [place] [address] [facility]04/13/23 Team Status: Active Member Role Status Dates PHYSICIAN NO FAMILY Primary Care Provider Active Team Status: Inactive Member Role Status Dates PHYSICIAN NO FAMILY Primary Care Provider Active Start: May 30, 2025 End: May 30, 2025[facility] EDWIGE Albertottending ProviderActiveStart: May 30, 2025 End: May 30, 2025Team MemberRelationshipSpecialtyStart DateEnd Date Kirby Alberto MD [facility]04/13/23 Mary Thayer MD [address] [place] [address] [facility]04/13/23Team MemberRelationshipSpecialtyStart DateEnd Date Kirby Alberto MD PCP - [facility]04/13/23 Mary Thayer MD [address] [place] [address] [facility]04/13/23Te MemberRelationshipSpecialtyStart DateEnd Date Kirby Alberto MD [facility] - [facility]04/13/23 Mary Thayer MD [address] [place] [address] [facility]04/13/23Te MemberRelationshipSpecialtyStart DateEnd Date Kirby Alberto MD [facility] - [facility]04/13/23 Mary Thayer MD [address] [place] [address] [facility]04/13/23 Goals (unrecognized section and content) Goals may be documented in a n alternate section Scheduled Active and Recently Administ ered Medications (unrecognized section and content) Medication Order/ lidocaine in NaCl,iso-osmo(PF) injection 1 mg 1 mg (0.1 mL), subcutaneous, Once, On Tue05/07/24 at 1000, For 1 dose, Recovery (only), To be used for IV insertion ONLY * 1000 (Due) Medication Order// lactated Ringer's infusion 100 mL/hr, intravenous, Continuous, Starting on Tue05/07/24 at 1000, Recovery (only) * 0933 (Continued from OR - Provider: Yanely Rdz RN) * 1046 (Stopped - Provider: Yanely Rdz RN) Medication Order// albuterol 2.5 mg /3 mL (0.083 %) nebulizer solution 2.5 mg 2.5 mg, nebulization, Once as needed, wheezing, Starting on Tue05/07/24 at 0938, For 1 dose, Recovery (only) balanced salts (BSS) intraocular solution (CANCELED) As needed, Starting on Tue05/07/24 at 0831, Intraprocedure * 0831 (Given - Provider: Jarred Phillips MD) EPINEPHrine HCl (PF) (Adrenalin) injection (CANCELED) As needed, Starting on Tue05/07/24 at 0832, Intraprocedure * 0832 (Given - Provider: Jarred Phillips MD - Comment: FOR TOPICAL PLEGET MIXTURE (2MG EPINEPHRINE,10 ML TXA, 20 ML SALINE)) HYDROmorphone (Dilaudid) [...] needed, Starting on Tue05/07/24 at 0835, Intraprocedure * 0835 (Given - Provider: Jarred Phillips MD - Comment: LOCAL MIXTURE: 9 ML OF LIDOCAINE 1% WITH EPINEPHRINE, 1 ML OF TXA. USED A TOTAL OF 17 ML OF LOCAL MIXTURE.) metoclopramide (Reglan) injection 10 mg 10 mg, intravenous, Once as needed, nausea/vomiting, second line, Starting on Tue05/07/24 at 0938, For 1 dose, Recovery (only) mupirocin (Bactroban) 2 % ointment (CANCELED) As needed, Starting on Tue05/07/24 at 0916, Intraprocedure * 0916 (Given - Provider: Jarred Phillips MD) ondansetron (Zofran) injection 4 mg 4 [...] - O2/gases, other, Post-operative care O2 support titration,Starting on Tue05/07/24 at 0938, Recovery (only), Titrate cannula versus simple face mask to O2 saturation, Device: Nasal Cannula, Rate in liters per minute: 2 LPM, Keep O2 Sat Above: 92%, Indications: invasive surgical procedure, Post-operative Oxygen support oxymetazoline (Afrin) 0.05 % nasal spray (CANCELED) As needed, Starting on Tue05/07/24 at 0833, Intraprocedure * 0833 (Given - Provider: Jarred Phillips MD - Comment: FOR PREP, TOPICAL PLEGETS IN AFRIN) sodium chloride 0.9 % irrigation solution (CANCELED) As needed, Starting on Tue05/07/24 at 0836, Intraprocedure * 0836 (Given - Provider: Jarred Phillips MD) tranexamic acid (Cyklokapron) injection (CANCELED) As needed, Starting on Tue05/07/24 at 0833, Intraprocedure * 0833 (Given - Provider: Jarred Phillips MD - Comment: FOR TOPICAL PLEGET MIXTURE (2MG EPINEPHRINE,10 ML TXA, 20 ML SALINE)) FOR RECORDS [...] BE BASED ON THE PRIMARY CLINICAL RECORDS. [employer] [facility]. provides no warranty or guarantee of the accuracy or completeness of information in this document.
== END 2025-07-29 08:54 | disposition home or self-care (01) ==
LOC: RAD 08:56
PROVIDERS: PCP Family Medicine; Visit Provider Urology
DX: N20.0 Calculus of kidney (principal)
CPT/HCPCS: 74018